=== PATIENT | male | born 1950 | race Caucasian/White ===

== ENCOUNTER 2019-05-26 10:43 | Outpatient (CLI) | payer MEDICARE, OTHER, SELFPAY ==
--- NOTE | 2019-05-27 13:39 | ONC CON_ITS ---
Dr. Sanches New Patient Note Patient: Nick Sheldon Unit #: [id number]: 1950 Dicatated By: Olu Sanches M.D.Date of Visit: May 26, 2019 Onc MED New Patient/Consult Referring Physician: Dr. Ede Prado M.D. Chief Complaint: Monoclonal gammopathy. History of Present Illness: This is a 68-year-old man with an IgA monoclonal gammopathy and suspected myeloma. He has been in excellent general health. He has had no ongoing medical illnesses. He had been seen by Dr. Prado in April to establish primary care. His initial evaluation included a comprehensive metabolic profile on 04/13/2019 which showed elevated BUN and creatinine at 19 and 1.43 mg/dL and elevation of the calculated serum globulin at 4.4 g/dL. His further laboratory studies from 04/24/2019 included CBC showing hemoglobin 11.2 g with hematocrit 34%. The red cell indices were normal. The white blood cell count was 5200 and the platelet count was 185,000. His basic metabolic profile showed borderline renal function with BUN 19 and creatinine 1.46 mg/dL. Calcium was normal at 9.7 mg/dL. Protein electrophoresis showed an IgA lambda monoclonal protein which quantitated at 2.6 g/dL. A second M band measured 0.2 g/dL. The total protein was 8.0 g/dL and the albumin measured 3.8 g/dL. The quantitative immunoglobulin levels included IgA 3025 mg/dL, IgG 299 mg/dL, and IgM 14 mg/dL. The free light chain assay showed elevated lambda light chain at 39.1 mg/L with normal kappa light chain at 5.1 mg/L and decreased kappa/lambda ratio at 0.13. He says that he feels great. He has good energy and he has normal activity. ECOG score is 0. Appetite also has been good. His weight has been stable. He has no fever or night sweats. He has no shortness of breath, cough, or chest pain. He has no GI or complaints. He has occasional low back pain, mainly following more strenuous activities. He has no other joint or bone pain. He has no focal neurologic symptoms. Past Medical History: He has had ongoing medical illnesses. Past Surgical History: His only procedure was a colonoscopy in 2008. Medications: He is currently not on any prescription medication. Allergies: No Known Allergies. Social History: Mr. Sheldon is . 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 He is a non-smoker. He does not drink alcohol. Family History: Father of prostate cancer at age 79. Mother is still living at age 94 and is in reasonably good health. A sister with complications of mental retardation. Two brothers are still living. One has valvular heart disease. Review Of Symptoms: Constitutional - He feels good and has good energy. He has normal activity. His appetite is good and his weight is stable. No fever, chills, hot flashes, or night sweats. ECOG score is 0, Eyes - No change in vision, ENMT - No hearing loss or tinnitus. No sinus congestion/drainage. No mouth sores. No sore throat or difficulty swallowing, Hematologic/Lymphatic - No abnormal bruising or bleeding, Respiratory - No shortness of breath. No cough. No pleuritic pain or hemoptysis, Cardiovascular - No angina pain. No palpitations, Gastrointestinal - No nausea or vomiting. No heartburn or acid reflux. No diarrhea or constipation. No blood in the stool or black stools, Genitourinary (M) - No dysuria or hematuria. No urinary frequency. No urgency or incontinence, Musculoskeletal - His back is sore after working all day, but nothing out of the ordinary. He has no other joint or bone pain, Integumentary - No skin complications, Neurologic - No headache or dizziness. No numbness/paresthesias or other focal neurologic symptoms, Psychiatric - No anxiety or depression. No insomnia. Vital Signs: Performed on May 26, 2019 11:41: 0, 24.50, 2.13 sq.m, 74.00 in, 99 %, 66 /min, 18 /min, 153/79 mm(hg) (HIGH), 97.7 F (LOW), and 190.8 lbs (HIGH). Physical Examination: Constitutional - He appears to be in good general health, Eyes - Sclerae nonicteric. Conjunctivae clear, ENMT - No lesions noted in the oral cavity, Neck - No mass or thyromegaly, Hematologic/Lymphatic - No cervical, clavicular, or axillary adenopathy, Respiratory - Lungs are clear with good air movement bilaterally, Cardiovascular - Heart rhythm is regular. There is no murmur, gallop, or rub noted, Abdomen - Soft and non-tender. Liver and spleen are not enlarged. There is no abdominal mass or ascites noted and there is no inguinal adenopathy, Back/Spine - No spine or CVA tenderness noted, Extremities - No edema. Pedal pulses are palpable bilaterally, Integumentary - No rashes. No suspicious skin lesions noted, Neurologic - No focal neurologic deficits noted. Impression: 1. Patient with IgA lambda monoclonal gammopathy. He also has mild anemia and mild renal impairment. Taken together, the findings are consistent with stage I myeloma. 2. He is not overtly symptomatic with it. Plan: The laboratory findings were reviewed with the patient and his . We discussed the clinical implications. Given the mild anemia and the renal impairment in association with IgA monoclonal gammopathy, the probability is very high that he has myeloma. We discussed the fact that this is a treatable though not curable malignancy. He will need to complete his initial evaluation with a skeletal survey, a 24-hour urine study for monoclonal protein excretion, and bone marrow aspiration/biopsy. A staging PET/CT may also be recommended, depending on the results of the other studies. We discussed initial treatment in general terms, which most commonly consists of an induction regimen with lenalidomide in combination with either bortezomib or carfilzomib and with dexamethasone. At some point along the process, I also will want him to be seen at [facility], as he will potentially be a candidate for stem cell transplant. All of their questions were addressed. Signed By: Olu Sanches M.D. <<Signature on File>>
== END 2019-05-26 10:44 | disposition home or self-care (01) ==
PROVIDERS: Family Provider Internal Medicine; PCP Family Medicine; Referring Provider Family Medicine; Visit Provider Internal Medicine Medical Oncology
DX: D47.2 Monoclonal gammopathy (principal); D64.9 Anemia, unspecified
CPT/HCPCS: 99205

== ENCOUNTER 2019-05-27 09:25 | Outpatient (CLI) | payer MEDICARE, OTHER, SELFPAY ==
--- NOTE | 2019-05-27 09:38 | XRR_ITS ---
PROCEDURE INFORMATION: Exam: XR Osseous survey; Complete axial and appendicular skeleton Exam date and time: 05/27/2019 10:13 AM Age: 69 years old Clinical indication: Condition or disease; Condition/disease: Monoclonal gammopathy TECHNIQUE: Imaging protocol: Radiological examination. Complete osseous survey. Axial and appendicular skeleton. COMPARISON: No relevant prior studies available. FINDINGS: Skull: No lytic or punched-out defect. Cervical spine: Mild degenerative disc disease.No lytic or punched-out defect. Chest: Normal. Visualized ribs and visualized portions of the shoulders unremarkable. Thoracic spine: Mild degenerative changes. No lytic or punched-out defect. No fracture. Lumbar Spine: Moderate degenerative changes most pronounced L4-L5 and L5-S1. No lytic or punched-out defect. Pelvis:osseous structures of the pelvis are without an acute process. No lytic or punched-out defect. Femurs:No lytic or punched-out defect. Humerus:No lytic or punched-out defect. Elbows:No lytic or punched-out defect. XR/XR bone survey* [id number] IMPRESSION: No lytic process. No punched-out lesions.
== END 2019-05-27 09:26 | disposition home or self-care (01) ==
PROVIDERS: Family Provider Internal Medicine; PCP Family Medicine; Visit Provider Internal Medicine Medical Oncology
DX: D47.2 Monoclonal gammopathy (principal)
CPT/HCPCS: 77075

== ENCOUNTER 2019-06-25 14:15 | Outpatient (CLI) | payer MEDICARE, OTHER, SELFPAY ==
--- NOTE | 2019-06-25 | MR_ITS ---
WS: [id number] MRI LUMBAR SPINE WITH AND WITHOUT CONTRAST HISTORY: MYELOMA COMPARISON: None available. TECHNIQUE: Sagittal and axial multisequence imaging is submitted. Postcontrast sequences also perform ed. Normal lumbar alignment. There is mild heterogeneity throughout the lumbar vertebral bodies. Mild christina t and pepper pattern which can be seen with multiple myeloma. Hypointense lesion along the superior e ndplate of L2 does enhance. This could very well represent a myelomatous lesion. Differential include s acute Schmorl's node defect. There is additional very mild enhancement involving the sacrum. Mild disc desiccation throughout. Conus terminates normally at L1-2 disc level. L1-L2: Normal. L2-L3: Mild annular disc bulging and facet arthritis. L3-L4: Mild diffuse disc bulging and mild bilateral foraminal narrowing. L4-L5: Mild central and foraminal narrowing. L5-S1: Mild diffuse disc bulging. Mild encroachment upon the S1 nerve roots without significant steno sis. LEFT renal cyst. MR/MR lumbar spine wo/w con [id number] IMPRESSION: 1. No compression fractures. 2. Heterogeneous pattern throughout the lumbar vertebral bodies with an enhanc ing lesion along the superior endplate of L2. Suspicious for myeloma. There is additional very subtle enhancement along the anterior sacral vertebral bodies w hich can be seen with multiple myeloma.
--- NOTE | 2019-06-25 | MR_ITS ---
WS: [id number] MRI CERVICAL SPINE with and without contrast. HISTORY: MYELOMA COMPARISON: None available. Multiplanar, multisequence imaging of the cervical spine is performed with and without contrast. Normal cervical alignment. Mild disc desiccation throughout. Mild heterogeneity within the vertebral bodies. No destructive bone process. There is a small amount of increased T2 signal in the LEFT C6 ar ticular facet with enhancement. Signal within the cervical cord is normal. Visualized posterior fossa is unremarkable. Craniocervical junction, C1 and C2 relationship, odontoid process and soft tissues are normal. C2-C3: Normal. C3-C4: Mild disc bulging and osteophytosis and central disc protrusion. C4-C5: Mild osteophytic ridging with no stenosis. C5-C6: Mild osteophytic ridging with mild bilateral foraminal stenosis and facet hypertrophy. C6-C7: Mild osteophytic ridging with facet arthropathy. Mild RIGHT foraminal stenosis. C7-T1: Mild osteophytic ridging with mild bilateral foraminal narrowing. Paraspinal soft tissue are normal. Bilateral maxillary sinusitis. MR/MR cervical spine wo/w [id number] IMPRESSION: 1. No evidence for metastatic disease or abnormal enhancement. 2. Increased T2 marrow signal with mild enhancement involving the C6 LEFT sup erior articular facet is probably related to synovitis. 3. No significant central or foraminal stenosis. 4. Maxillary sinus disease.
--- NOTE | 2019-06-25 | MR_ITS ---
WS: [id number] MRI THORACIC SPINE with and without contrast HISTORY: MYELOMA COMPARISON: None available. TECHNIQUE: Multiplanar sequences are performed in sagittal and axial planes. Very mild heterogeneity scattered throughout the vertebral bodies. No destructive process or fracture . No compression upon the cord or marrow edema. No enhancement within the vertebral bodies. Central shallow disc protrusion at T3-4. Otherwise mild facet arthropathy throughout the thoracic spi ne. MR/MR thoracic spine wo/w [id number] IMPRESSION: 1. No compression fractures. 2. Very mild heterogeneity throughout the vertebral bodies. Although there is no destructive process multiple myeloma can sometimes be seen with a very mild change in the osseous pattern without enhancement. Cannot confirm multiple myel fili on this MRI.
== END 2019-06-25 14:16 | disposition home or self-care (01) ==
LOC: RADSHAW 14:20
PROVIDERS: Family Provider Internal Medicine; PCP Family Medicine; Visit Provider Internal Medicine Medical Oncology
DX: C90.00 Multiple myeloma not having achieved remission (principal); J32.0 Chronic maxillary sinusitis
CPT/HCPCS: 72156; 72157; 72158; A9579

== ENCOUNTER 2019-07-01 13:10 | Outpatient (CLI) | payer MEDICARE, OTHER, SELFPAY ==
[2019-07-02 15:46] LABS: CREATININE, 24 HOUR URINE 1.85 g/24 h (0.50-2.15); PROTEIN, TOTAL, 24 HR UR 126 mg/24 h (<150); Protein/Creatinine Ratio 0.068 (< OR = 0.114); Protein/Creatinine Ratio 68 mg/g creat (< OR = 114)
[2019-07-03 09:06] LABS: ALPHA-1-GLOBULINS 0 %; ALPHA-2-GLOBULINS 0 %; BETA GLOBULINS 0 %; GAMMA GLOBULINS 0 %
[2019-08-28 11:24] LABS: COLLECTION DURATION 24; URINE VOLUME 900
== END 2019-07-01 13:11 | disposition home or self-care (01) ==
LOC: ONCMED 13:12
PROVIDERS: Family Provider Internal Medicine; PCP Family Medicine; Visit Provider Internal Medicine Medical Oncology
DX: C90.00 Multiple myeloma not having achieved remission (principal)
CPT/HCPCS: 82040

== ENCOUNTER 2019-07-16 08:16 | Outpatient (CLI) | payer MEDICARE, OTHER, SELFPAY ==
--- NOTE | 2019-07-16 08:29 | USCV_ITS ---
Nick Sheldon Age: 69 Gender: M : 1950 Exam Date: 07/16/2019 08:39 Ordering Phys: Olu Sanches MD Technologist: Bruce Jaimes [place] [facility] [place] HIGH RISK MED BP: 125 / 72 HR: 66 Rhythm: Sinus Technical Quality: Good MEASUREMENTS (Male / Female) Normal Values 2D ECHO LV Diastolic Diameter PLAX 3.9 cm 4.2 - 5.9 / 3.9 - 5.3 cm LV Systolic Diameter PLAX 2.6 cm IVS Diastolic Thickness 0.9 cm 0.6 - 1.0 / 0.6 - 0.9 cm IVS Systolic Thickness 1.1 cm LVPW Diastolic Thickness 1.2 cm 0.6 - 1.0 / 0.6 - 0.9 cm LVPW Systolic Thickness 1.2 cm LVOT Diameter 2.1 cm LV Ejection Fraction 2D Teich 62.4 % LV Ejection Fraction MOD 2C 61.4 % LV Ejection Fraction 2C AL 60.5 % LA Diameter 3.7 cm LA Width 3.5 cm LA Height 4.4 cm RA Width 3.9 cm RA Height 4.2 cm Aorta at Sinotubular Diameter 2.8 cm M-MODE LV Diastolic Diameter MM 5.7 cm 4.2 - 5.9 / 3.9 - 5.3 cm LV Systolic Diameter MM 4.3 cm LV Ejection Fraction MM Teich 50.1 % IVS Diastolic Thickness MM 1.0 cm 0.6 - 1.0 / 0.6 - 0.9 cm IVS Systolic Thickness MM 1.5 cm LVPW Diastolic Thickness MM 1.2 cm 0.6 - 1.0 / 0.6 - 0.9 cm LVPW Systolic Thickness MM 1.8 cm RV Diastolic Diameter MM 1.4 cm Aortic Annulus Diameter 3.4 cm LA Ao Ratio MM 1.1 MV E Point Septal Separation 1.6 cm DOPPLER AV Peak Velocity 119.0 cm/s LVOT Peak Velocity 98.0 cm/s AV Area Cont Eq vti 2.7 cm squared AV Area Cont Eq pk 2.9 cm squared MV Area PHT 5.0 cm squared Mitral E to A Ratio 0.9 MV E' Velocity 11.0 cm/s Mitral E to MV E' Ratio 8.1 Mitral E to LV E' Lateral Ratio 7.6 Mitral E to LV E' Septal Ratio 8.6 TR Peak Velocity 213.0 cm/s TR Peak Gradient 18.1 mmHg Right Atrial Pressure 3.0 mmHg Pulmonary Artery Systolic Pressu 21.1 mmHg PV Peak Velocity 129.0 cm/s FINDINGS Left Ventricle Normal left ventricular cavity size. Mildly reduced left ventricular systolic function. Global left ventricular hypokinesis. Left ventricular ejection fraction is estimated at 50 %. Grade I/IV diastolic dysfunction (abnormal relaxation filling pattern), normal to mildly elevated filling pressures. Right Ventricle The right ventricle is normal in size and function. Right Atrium The right atrium is normal in size. Left Atrium The left atrium is normal in size. Mitral Valve Structurally normal mitral valve without significant stenosis or prolapse. There is no mitral regurgitation. Aortic Valve Structurally normal aortic valve without significant sclerosis or stenosis. There is no aortic regurgitation. Tricuspid Valve Mild tricuspid valve regurgitation. Pulmonic Valve Structurally normal pulmonic valve without significant stenosis. There is no pulmonic regurgitation. Pericardium Normal pericardium without effusion. Aorta Normal ascending aorta dimension. CONCLUSIONS 1-Normal left ventricular cavity size. Mildly reduced left ventricular systolic function. Global left ventricular hypokinesis. Left ventricular ejection fraction is estimated at 50 %. Grade I/IV diastolic dysfunction (abnormal relaxation filling pattern), normal to mildly elevated filling pressures. 2-No significant valve abnormalities. 3-There is no pericardial effusion. 4-Right atrial pressure is around 5 mm of mercury. 5-There are no prior echocardiogram studies to compare. Sharmila Zhou MD (Electronically Signed) Final Date: 16 July 2019 15:31 S
== END 2019-07-16 08:17 | disposition home or self-care (01) ==
LOC: RAD 08:21
PROVIDERS: Family Provider Internal Medicine; PCP Family Medicine; Visit Provider Internal Medicine Medical Oncology
DX: C90.00 Multiple myeloma not having achieved remission (principal)
CPT/HCPCS: 93306

== ENCOUNTER 2019-08-20 06:50 | Outpatient (RCR) | payer MEDICARE, OTHER, SELFPAY ==
[2019-08-05 08:57] LABS: Basophils # 0.1 10^3/uL (0.0-0.1); Basophils % 1.2 %; Eosinophils # 0.3 10^3/uL (0.0-0.8); Eosinophils % 5.7 %; Hematocrit 32.7 % (42.0-52.0); Hemoglobin 10.3 g/dL (11.7-16.6); Lymphocytes # 2.1 10^3/uL (0.8-4.8); Lymphocytes % 43.3 %; Mean Corpuscular HGB Conc 31.5 g/dL (30.0-36.0); Mean Corpuscular Hemoglobin 28.6 pg (28.0-34.0); Mean Corpuscular Volume 90.8 fL (80-94); Mean Platelet Volume 11.1 fL (7.4-10.4); Monocytes # 0.6 10^3/uL (0.2-0.9); Monocytes % 12.1 %; Neutrophils # 1.8 10^3/uL (1.8-7.7); Neutrophils % 36.9 %; Nucleated Red Blood Cells % 0 %; Platelet Count 156 10^3/cmm (130-400); White Blood Count 4.9 10^3/uL (4.0-10.0)
[2019-08-05 09:25] LABS: Alanine Aminotransferase 15 U/L (0-41); Albumin Level 3.9 g/dL (3.5-5.2); Alkaline Phosphatase 72 IU/L (40-130); Anion Gap 18.9 (5-19); Aspartate Amino Transferase 23 U/L (0-40); Blood Urea Nitrogen 19 mg/dL (8-23); Calcium 9.5 mg/dL (8.5-10.5); Carbon Dioxide 23 mmol/L (22-29); Chloride 98 mmol/L (98-107); Globulin 4.8 g/dL (1.3-4.6); Glomerular Filtration Rate 46.3 mL/min (90-130); Glucose 140 mg/dL (65-115); Osmolality Calculated 281 mOsm/kg (285-295); Potassium 3.9 mmol/L (3.5-5.1); Sodium 136 mmol/L (136-145); Total Bilirubin 0.4 mg/dL (0.15-1.2); Total Protein 8.7 g/dL (6.6-8.7)
[2019-08-05] MEDS: dexamethasone 20 MG in sodium chloride 0.9% 50 ML 188 MG IV (10:31)
[2019-08-05] MEDS: sodium chloride 0.9% 500 ML 999 ML IV (11:03)
[2019-08-06] MEDS: dexamethasone 20 MG in sodium chloride 0.9% 50 ML 188 MG IV (09:02)
[2019-08-06] MEDS: sodium chloride 0.9% 500 ML 999 ML IV (09:34)
[2019-08-12 09:13] LABS: Eosinophils # 0.2 10^3/uL (0.0-0.8); Hemoglobin 10.4 g/dL (11.7-16.6); Lymphocytes # 1.1 10^3/uL (0.8-4.8); Lymphocytes % 35.5 %; Mean Corpuscular HGB Conc 32.5 g/dL (30.0-36.0); Mean Corpuscular Hemoglobin 29.7 pg (28.0-34.0); Mean Corpuscular Volume 91.4 fL (80-94); Mean Platelet Volume 12.6 fL (7.4-10.4); Monocytes # 0.4 10^3/uL (0.2-0.9); Monocytes % 12.9 %; Neutrophils # 1.4 10^3/uL (1.8-7.7); Neutrophils % 45.3 %; Nucleated Red Blood Cells % 0 %; Platelet Count 132 10^3/cmm (130-400); Red Cell Distribution Width 18.7 % (12.1-15.1); White Blood Count 3.2 10^3/uL (4.0-10.0)
[2019-08-12] MEDS: sodium chloride 0.9% 500 ML 999 ML IV (11:45)
[2019-08-12] MEDS: dexamethasone 20 MG in sodium chloride 0.9% 50 ML 188 MG IV (12:00)
--- NOTE | 2019-08-12 13:32 | ONC FU_ITS ---
[facility] Patient Note Patient: Nick Sheldon Unit #: [id number]: 1950 Dictated By: Michael LaguerreDate of Visit: August 12, 2019 Onc MED Follow-Up/Prog Note Chief Complaint: Monoclonal gammopathy. History of Present Illness: Mr Sheldon is a 69-year-old man with an IgA monoclonal gammopathy and suspected myeloma. He has been in excellent general health. 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 He has had no ongoing medical illnesses. He had been seen by Dr. Prado in April to establish primary care. His initial evaluation included a comprehensive metabolic profile on 04/13/2019 which showed elevated BUN and creatinine at 19 and 1.43 mg/dL and elevation of the calculated serum globulin at 4.4 g/dL. His further laboratory studies from 04/24/2019 included CBC showing hemoglobin 11.2 g with hematocrit 34%. The red cell indices were normal. The white blood cell count was 5200 and the platelet count was 185,000. His basic metabolic profile showed borderline renal function with BUN 19 and creatinine 1.46 mg/dL. Calcium was normal at 9.7 mg/dL. Protein electrophoresis showed an IgA lambda monoclonal protein which quantitated at 2.6 g/dL. A second M band measured 0.2 g/dL. The total protein was 8.0 g/dL and the albumin measured 3.8 g/dL. The quantitative immunoglobulin levels included IgA 3025 mg/dL, IgG 299 mg/dL, and IgM 14 mg/dL. The free light chain assay showed elevated lambda light chain at 39.1 mg/L with normal kappa light chain at 5.1 mg/L and decreased kappa/lambda ratio at 0.13. Skeletal survey was negative. Mr. Sheldon was seen by Dr. Sanches in May 2019. He was doing well at that time. He was referred to [facility]???Dr. Britton. He was seen by Dr. Britton on 06/05/2019. He continued to be asymptomatic. He underwent complete work-up including PET CT, bone marrow aspiration and biopsy. It was found on the bone marrow that he had lambda restricted plasma cell neoplasm involving 60% of the marrow cellularity. The plasma cells were positive for CD56 and negative for CD20, p53 and cyclin D1. Stains for CD3 and CD20 highlight scattered T and B lymphocytes effectively and show no morphologic evidence of lymphoma. The pancytokeratin is negative for metastatic carcinoma. Mr. Sheldon underwent PET CT imaging on 06/13/2019 with [facility] radiology. There was no evidence of active malignancy and no punched out FDG positive lytic osseous lesions typical for multiple myeloma. There were no incidental findings. With these findings, it was recommended that Mr. Sheldon proceed with therapy locally. He was advised to start carfilzomib, Revlimid and dexamethasone. He began his first cycle on August 05, 2019. Mr. Sheldon is here today for follow-up. He is due for cycle 1 day 8 and 9 carfilzomib. He continues on the Revlimid 15 mg daily. He states he is doing well overall. 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 He denies any nausea or vomiting. He denies any diarrhea or constipation. He has no neuropathy symptoms. He has had no fever or chills. He denies mouth sores, sore throat or difficulty swallowing. He denies any pain. He said no lower extremity edema. He denies any new shortness of breath orthopnea. He states he has a little windedness when he walks up a hill but that is not entirely new and is no worse than what it has been. He denies any wheezing. He states he has developed a rash and hives from his chest up. This developed about 3 to 4 days ago. He is taking prophylactic acyclovir but is been on it for at least 2 weeks. He is not on prophylactic Bactrim. He states the rash is a little itchy but not dramatic. He has no further evidence of rash other than the chest and neck and head. He did take his Revlimid this morning approximately 3 hours prior to his office visit. He says so far the rash is not worsened today. His ECOG is 0. Past Medical History: He has had ongoing medical illnesses. Past Surgical History: Colonoscopy in 2008 Allergies: No Known Allergies. Medications: Acyclovir 1 Tablet (of 400 mg) Oral daily Aspirin 1 Tablet (of 325 mg) Oral daily Revlimid 1 Capsule (of 15 mg) Oral daily for 21 days Family History: Mr. Sheldon's mother is alive. Mr. Sheldon's father at age 79: prostate cancer. Mr. Sheldon has 2 brothers: 2 alive. He has 1 sister who is . Father of prostate cancer at age 79. Mother is still living at age 94 and is in reasonably good health. A sister with complications of mental retardation. Two brothers are still living. One has valvular heart disease. Social History: Mr. Sheldon is and he is retired. Mr. Sheldon has never smoked. He has no history of drinking. Mr. Sheldon reports the following support systems: lives with spouse, significant other, family, or friends, lives in own house, supportive family/friends willing to assist with needs, and adequate transportation available for expected visits. His diet consists of regular meals. He indicates his activity level as: regular exercise. 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 He is a non-smoker. He does not drink alcohol. Review Of Symptoms: Constitutional Denies fevers, chills, night sweats, excessive fatigue or weight loss. Allergic/Immunologic No reactions. Rash on chest, neck and head-new onset within last 3-4 days. See below Eyes Denies significant visual changes. No diplopia. No amaurosis. ENMT Denies changes in hearing, sore throat, mouth sores, difficulty or changes in swallowing ability, and/or sinus drainage. Hematologic/Lymphatic Denies easy bruising or bleeding. The patient denies any tender or palpable lymph nodes. Respiratory Denies dyspnea on exertion, chest pain, cough or hemoptysis. Denies orthopnea. Cardiovascular Denies anginal chest pain, palpitations or orthopnea. Gastrointestinal Denies nausea, vomiting, diarrhea, GI bleeding, or constipation. Denies change in bowel habits and/or stool color, no heartburn or early satiety. Genitourinary (M) Denies hematuria, dysuria, increased frequency, urgency, hesitancy or incontinence. Musculoskeletal Denies joint pain, swelling or redness. No decreased range of motion. Integumentary Denies chronic rashes, inflammation, ulcerations or skin changes. New onset of rash/hives on chest, neck and head about 3-4 days ago. Mild itching but no exudate or signs of infection. Neurologic Denies headache, blurred vision, and no areas of focal weakness or numbness. Normal gait. No sensory problems. Psychiatric Denies insomnia, depression, daniela or mood swings. Vital Signs: Performed on August 12, 2019 10:43 Height - 74.00 in Weight - 189 lbs (LOW) BSA - 2.12 sq.m BMI - 24.27 Temperature - 98.0 F (LOW) Pulse - 72 /min Respiration - 19 /min BP - 154/94 mm(hg) (HIGH) O2 Sat - 98 % Pain - 0,0 - Fully active, able to carry on all predisease activities without restrictions. (ECOG) Physical Examination: Constitutional Alert, oriented, no acute distress. Skin pink, warm and dry. Head Normocephalic; atraumatic. Eyes Conjunctivae and sclerae are clear and without icterus. Pupils are reactive and equal. ENMT No oral exudates, ulcers, masses, thrush or mucositis. Oropharynx clear. Tongue normal. Neck Supple without masses or thyromegaly. No jugular venous distension. Hematologic/Lymphatic No petechiae or purpura. Respiratory Lungs are clear to auscultation without rhonchi or wheezing. Cardiovascular Regular rate and rhythm of heart without murmurs,clicks, gallops or rubs. Abdomen Non-tender, non-distended, no masses or ascites. Good bowel sounds noted in all quads. No guarding or rebound tenderness. No pulsatile masses. Back/Spine Non-tender to palpation. Extremities No visible deformities, no cyanosis, clubbing or edema. Musculoskeletal No tenderness or swelling, normal range of motion without obvious weakness. Integumentary Scattered red raised lesions on upper chest, neck and head including scalp. No vesicles presently. No exudate. Neurologic No sensory or motor deficits, normal cerebellar function, normal gait. Psychiatric Alert and oriented times three. Coherent speech. Verbalizes understanding of our discussions today. Laboratory:Test performed on August 12, 2019 08:32 WBC 3.2 10 3/uL RBC 3.50 10 6/uL HGB 10.4 g/dL HCT 32.0 % MCV 91.4 fL MCH 29.7 pg MCHC 32.5 g/dL RDW 18.7 % Platelet Count 132 10 3/cmm MPV 12.6 fL Neutrophils 1.4 10 3/uL Lymphocytes 1.1 10 3/uL Monocytes 0.4 10 3/uL Eosinophils 0.2 10 3/uL Basophils 0.0 10 3/uL Neutrophil % 45.3 % Lymphocyte % 35.5 % Monocyte % 12.9 % Eosinophil % 6.0 % Basophils % 0.0 % Test performed on August 05, 2019 08:45 Sodium 136 mmol/L Potassium 3.9 mmol/L Chloride 98 mmol/L CO2 23 mmol/L Anion Gap 18.9 BUN 19 mg/dL Creatinine 1.5 mg/dL Cr Clearance (Est) 56.1000 mL/min eGFR 46.3 mL/min Glucose 140 mg/dL Calcium 9.5 mg/dL Protein, Total 8.7 g/dL Albumin 3.9 g/dL Globulin 4.8 g/dL Bilirubin, Total 0.4 mg/dL ALT (SGPT) 15 U/L AST (SGOT) 23 U/L Alkaline Phosphatase 72 IU/L Test performed on Apr 13, 2019 08:36 Cholesterol, Total 199 mg/dL HDL Cholesterol 43 mg/dL LDL Cholesterol 131 mg/dL BUN/Creatinine Ratio 13 Absolute Value Triglycerides 137 mg/dL A/G Ratio 0.9 Absolute Value Impression: 1. Patient with IgA lambda monoclonal gammopathy. He also has mild anemia and mild renal impairment. Taken together, the findings are consistent with stage I myeloma. 2. He is not overtly symptomatic with it. It was found on the bone marrow that he had lambda restricted plasma cell neoplasm involving 60% of the marrow cellularity. The plasma cells were positive for CD56 and negative for CD20, p53 and cyclin D1. Stains for CD3 and CD20 highlight scattered T and B lymphocytes effectively and show no morphologic evidence of lymphoma. The pancytokeratin is negative for metastatic carcinoma. Mr. Sheldon underwent PET CT imaging on 06/13/2019 with [facility]. There was no evidence of active malignancy and no punched out FDG positive lytic osseous lesions typical for multiple myeloma. There were no incidental findings. With these findings, it was recommended that Mr. Sheldon proceed with therapy locally. He was advised to start carfilzomib, Revlimid and dexamethasone. He began his first cycle on August 05, 2019. Plan: 1. Proceed with Kyprolis day 8 & 9-will need to watch for flare of rash. 2. Hold Revlimid until Saturday08-17-2019 at which time he is to call and give us report on the rash. If the rashes worsens after the Kyprolis infusion today or tomorrow-the Kyprolis will be put on hold. If we hold the Kyprolis, we can try resuming the Revliid 15 mg daily. 3. Continue acyclovir daily for now. We will not start him on prophylactic Bactrim at this time until we determine the etiology of the rash and it resolves. 4. Labs from today were reviewed in detail and discussed with Mr. Sheldon and a copy was given to him. WBC 3.2, hemoglobin 10.4, platelets 132,000, and ANC is 1400. 5. We will plan to see him back in 1 week for day 15 and 16 carfilzomib at which time he is been asked to have a CBC, CMP. He has not yet had repeat proteins since his initial staging. We will plan to obtain those prior to cycle 2 treatment. 6. Mr. Sheldon is advised that he could try Benadryl, Claritin or Zyrtec [id number] should he develop any itching from the rash. 7. Mr. Sheldon has been instructed to contact us in the interim should questions or problems arise. I have again asked him to call in on Saturday, August 16 with report of the rash as we can determine whether to resume the Revlimid as a rechallenge. He was instructed to call us if any other questions or problems arise. Signed By: Michael Laguerre-, AOCNP Olu Sanches MD <<Signature on File>>
[2019-08-13] MEDS: sodium chloride 0.9% 500 ML 999 ML IV (08:33)
[2019-08-13] MEDS: dexamethasone 20 MG in sodium chloride 0.9% 50 ML 188 MG IV (09:23)
[2019-08-19 10:03] LABS: Basophils % 0.2 %; Eosinophils # 0.1 10^3/uL (0.0-0.8); Eosinophils % 2.4 %; Hematocrit 32.6 % (42.0-52.0); Hemoglobin 10.6 g/dL (11.7-16.6); Lymphocytes # 1.2 10^3/uL (0.8-4.8); Lymphocytes % 20.5 %; Mean Corpuscular HGB Conc 32.5 g/dL (30.0-36.0); Mean Corpuscular Hemoglobin 29.9 pg (28.0-34.0); Mean Corpuscular Volume 91.8 fL (80-94); Mean Platelet Volume 10.9 fL (7.4-10.4); Monocytes % 17.9 %; Neutrophils # 3.4 10^3/uL (1.8-7.7); Neutrophils % 58.7 %; Nucleated Red Blood Cells % 0 %; Platelet Count 179 10^3/cmm (130-400); Red Blood Count 3.55 10^6/uL (4.1-5.3); Red Cell Distribution Width 19.3 % (12.1-15.1); White Blood Count 5.8 10^3/uL (4.0-10.0)
[2019-08-19 10:31] LABS: Alanine Aminotransferase 14 U/L (0-41); Albumin Level 3.8 g/dL (3.5-5.2); Alkaline Phosphatase 100 IU/L (40-130); Anion Gap 15.8 (5-19); Aspartate Amino Transferase 15 U/L (0-40); Blood Urea Nitrogen 23 mg/dL (8-23); Calcium 9.3 mg/dL (8.5-10.5); Carbon Dioxide 22 mmol/L (22-29); Chloride 102 mmol/L (98-107); Glomerular Filtration Rate 50.1 mL/min (90-130); Glucose 109 mg/dL (65-115); Osmolality Calculated 279 mOsm/kg (285-295); Potassium 3.8 mmol/L (3.5-5.1); Sodium 136 mmol/L (136-145); Total Bilirubin 0.4 mg/dL (0.15-1.2); Total Protein 6.8 g/dL (6.6-8.7)
[2019-08-19] MEDS: dexamethasone 20 MG in sodium chloride 0.9% 50 ML 188 MG IV (17:52)
[2019-08-19] MEDS: sodium chloride 0.9% 500 ML 999 ML IV (17:53)
[2019-08-20] MEDS: sodium chloride 0.9% 500 ML 999 ML IV (09:15)
[2019-08-20] MEDS: dexamethasone 20 MG in sodium chloride 0.9% 50 ML 300 MG IV (09:35)
--- NOTE | 2019-08-23 09:21 | ONC FU_ITS ---
Dr. Sanches Patient Follow-Up Note Patient: Nick Sheldon Unit #: [id number]: 1950 Dicatated By: Olu Sanches M.D.Date of Visit:August 19, 2019 Onc Med Follow-up/Prog Note Chief Complaint: Myeloma. History of Present Illness: This is a 69 year-old man with IgA lambda myeloma. He had been seen by Dr. Prado in April 2019 to establish primary care. His initial evaluation included a comprehensive metabolic profile on 04/13/2019 which showed elevated BUN and creatinine at 19 and 1.43 mg/dL and elevation of the calculated serum globulin at 4.4 g/dL. His further laboratory studies from 04/24/2019 included CBC showing hemoglobin 11.2 g with hematocrit 34%. The red cell indices were normal. The white blood cell count was 5200 and the platelet count was 185,000. His basic metabolic profile showed borderline renal function with BUN 19 and creatinine 1.46 mg/dL. Calcium was normal at 9.7 mg/dL. Protein electrophoresis showed an IgA lambda monoclonal protein which quantitated at 2.6 g/dL. A second M band measured 0.2 g/dL. The total protein was 8.0 g/dL and the albumin measured 3.8 g/dL. The quantitative immunoglobulin levels included IgA 3025 mg/dL, IgG 299 mg/dL, and IgM 14 mg/dL. The free light chain assay showed elevated lambda light chain at 39.1 mg/L with normal kappa light chain at 5.1 mg/L and decreased kappa/lambda ratio at 0.13. I had seen him initially on 05/26/2019. His further evaluation included a 24-hour urine protein electrophoresis which showed no monoclonal protein and a skeletal survey which showed no evidence for lytic bone lesions. He was then referred to [facility]. His bone marrow aspiration/biopsy His bone marrow aspiration/biopsy on 06/05/2019 showed increased lambda restricted plasma cells estimated at 60% of the overall cellularity, consistent with plasma cell neoplasm. Staging PET/CT on 06/13/2019 showed no evidence for active malignancy. He had further evaluation with MRI of the spine on 06/25/2019. The cervical spine showed some degenerative changes but no evidence for metastatic disease. There was mild heterogeneity throughout the vertebral bodies of the thoracic spine. There was no evidence for a destructive process, but involvement with myeloma was not excluded. There was also mild heterogeneity throughout the lumbar spine. Also noted was a mild [id number] pattern and there was a hypointense lesion noted along the superior endplate of the L2 vertebral body. That lesion did show enhancement and there was additional very mild enhancement involving the sacrum. Overall, the findings were suspicious for involvement with myeloma. With those findings, along with the anemia and renal impairment, he was recommended to begin treatment with carfilzomib/Revlimid/dexamethasone. He has otherwise been in excellent health. He has had no other ongoing medical illnesses. He is a non-smoker. INTERIM HISTORY: He began cycle 1 of carfilzomib/Revlimid/dexamethasone on 08/05/2019. Due to the impaired renal function, the Revlimid was administered at a reduced dosage of 15 mg daily on a 21/28-day schedule. He is seen for a follow-up visit. He is now at day 15 of his first cycle. During the first week of the cycle he developed a skin eruption involving the upper trunk and face/head. The Revlimid was put on hold at day 8, and the skin eruption has since then resolved. He has otherwise been tolerating the treatment well. He has had a slight decline in his energy level, but he is still working. His ECOG score is 0. He has good appetite. He has no fever or night sweats. He has had no mouth sores. He has not been having shortness of breath or cough. He occasionally has had a little tightness in his chest. He has no GI complaints. He does have increased urinary frequency and nocturia since he started his treatment. He has a little bit of pain in the hip area on both sides. He has no other joint or bone pain. He has no focal neurologic symptoms. Medications: Acyclovir 1 Tablet (of 400 mg) Oral daily, Aspirin 1 Tablet (of 325 mg) Oral daily, LORazepam 0.5 - 1 Tablet (of 1 mg) Oral t.i.d. PRN, Prochlorperazine Maleate 1 Tablet (of 10 mg) Oral q 4 hours PRN Allergies: No Known Allergies. Review of Systems: Constitutional - He still feels good. His energy is down slightly. He has normal activity. His appetite is good and his weight is stable. No fever or night sweats. ECOG score is 0, ENMT - No sinus congestion/drainage. No mouth sores. No sore throat or difficulty swallowing, Hematologic/Lymphatic - No abnormal bruising or bleeding, Respiratory - No shortness of breath. No cough. No pleuritic pain or hemoptysis, Cardiovascular - No angina pain, but he occasionally has a little tightness in his chest. No palpitations, Gastrointestinal - No nausea or vomiting. No heartburn or acid reflux. No diarrhea or constipation. No blood in the stool or black stools, Genitourinary (M) - No dysuria or hematuria. He has developed some urinary frequency and nocturia. No urgency or incontinence, Musculoskeletal - He has a little discomfort in his hips. He has no other joint or bone pain, Integumentary - He developed a skin rash in the upper chest and face. It has resolved, Neurologic - No headache or dizziness. No numbness/paresthesias or other focal neurologic symptoms, Psychiatric - No anxiety or depression. No insomnia. Vital Signs: Performed on August 19, 2019 11:02 Height - 74.00 in Weight - 189.4 lbs (HIGH) BSA - 2.12 sq.m BMI - 24.32 Temperature - 97.4 F (LOW) Pulse - 66 /min Respiration - 18 /min BP - 166/78 mm(hg) (HIGH) O2 Sat - 99 % Pain - 0 Physical Examination: Constitutional - He looks good generally, Eyes - Sclerae nonicteric. Conjunctivae clear, ENMT - No lesions noted in the oral cavity, Hematologic/Lymphatic - No cervical, clavicular, or axillary adenopathy, Respiratory - Lungs are clear with good air movement bilaterally, Cardiovascular - Heart rhythm is regular. There is no murmur, gallop, or rub noted, Abdomen - Soft. Liver and spleen are not enlarged. There is no abdominal mass or ascites noted and there is no inguinal adenopathy, Extremities - No edema, Integumentary - There is currently no skin eruption, Neurologic - No focal neurologic deficits noted. Lab/Imaging: Test performed on August 19, 2019 09:30 Sodium 136 mmol/L Potassium 3.8 mmol/L Chloride 102 mmol/L CO2 22 mmol/L Anion Gap 15.8 BUN 23 mg/dL Creatinine 1.4 mg/dL Cr Clearance (Est) 60.1000 mL/min eGFR 50.1 mL/min Glucose 109 mg/dL Calcium 9.3 mg/dL Protein, Total 6.8 g/dL Albumin 3.8 g/dL Globulin 3.0 g/dL Bilirubin, Total 0.4 mg/dL ALT (SGPT) 14 U/L AST (SGOT) 15 U/L Alkaline Phosphatase 100 IU/L WBC 5.8 10 3/uL RBC 3.55 10 6/uL HGB 10.6 g/dL HCT 32.6 % MCV 91.8 fL MCH 29.9 pg MCHC 32.5 g/dL RDW 19.3 % Platelet Count 179 10 3/cmm MPV 10.9 fL Neutrophils 3.4 10 3/uL Lymphocytes 1.2 10 3/uL Monocytes 1.0 10 3/uL Eosinophils 0.1 10 3/uL Basophils 0.0 10 3/uL Neutrophil % 58.7 % Lymphocyte % 20.5 % Monocyte % 17.9 % Eosinophil % 2.4 % Basophils % 0.2 % Impression: 1. Patient with IgA lambda myeloma. He had mild anemia and mild renal impairment at initial diagnosis in May 2019. Bone marrow aspiration/biopsy showed involvement with lambda restricted plasma cells, estimated at 60% of the marrow cellularity, consistent with plasma cell neoplasm. There was no evidence for lytic bone disease on a skeletal survey or PET/CT, but MRI showed subtle changes in the thoracic and lumbar spine which were suspicious for involvement with myeloma. 2. He began treatment with carfilzomib/Revlimid/dexamethasone on 08/05/2019. Due to the impaired renal function, the Revlimid was initiated at a reduced dosage of 15 mg daily on a 21/28-day schedule. He is currently at day 15 of his first cycle of treatment. The Revlimid was put on hold at day 8 due to a skin eruption in the upper trunk and face/head area. It has now resolved. He is otherwise tolerating the treatment very well. Plan: He will continue with his day 15/day 16 carfilzomib infusions. He will now restart the Revlimid at 15 mg daily. I will have him stop that day 21. He is to notify us if there is any recurrence of the skin eruption. He also continues prophylaxis with aspirin and with acyclovir. He will be scheduled for a follow-up visit in 2 weeks. Signed By: Olu Sanches M.D. <<Signature on File>>
== END 2019-08-30 23:59 | disposition home or self-care (01) ==
LOC: ONCMED 06:50
PROVIDERS: Nurse Practitioner; PCP Family Medicine; Visit Provider Internal Medicine Medical Oncology
DX: Z51.11 Encounter for antineoplastic chemotherapy (principal); C90.00 Multiple myeloma not having achieved remission; D47.2 Monoclonal gammopathy
CPT/HCPCS: 80053; 85025; 96361; 96367; 96375; 96413; 99214; J1100; J1200; J2405; J7040; J9047

== ENCOUNTER 2019-09-28 06:49 | Outpatient (RCR) | payer MEDICARE, OTHER, SELFPAY ==
[2019-09-02 10:55] LABS: Basophils # 0.2 10^3/uL (0.0-0.1); Basophils % 3.8 %; Eosinophils # 0.2 10^3/uL (0.0-0.8); Eosinophils % 5.4 %; Hematocrit 33.1 % (42.0-52.0); Hemoglobin 10.5 g/dL (11.7-16.6); Lymphocytes # 1.3 10^3/uL (0.8-4.8); Lymphocytes % 30.8 %; Mean Corpuscular HGB Conc 31.7 g/dL (30.0-36.0); Mean Corpuscular Hemoglobin 29.5 pg (28.0-34.0); Mean Platelet Volume 10.2 fL (7.4-10.4); Monocytes # 0.8 10^3/uL (0.2-0.9); Neutrophils # 1.7 10^3/uL (1.8-7.7); Neutrophils % 40.8 %; Nucleated Red Blood Cells % 0 %; Platelet Count 411 10^3/cmm (130-400); Red Blood Count 3.56 10^6/uL (4.1-5.3); Red Cell Distribution Width 19.4 % (12.1-15.1); White Blood Count 4.3 10^3/uL (4.0-10.0)
[2019-09-02 11:52] LABS: Alanine Aminotransferase 18 U/L (0-41); Albumin Level 3.9 g/dL (3.5-5.2); Alkaline Phosphatase 118 IU/L (40-130); Anion Gap 15.9 (5-19); Aspartate Amino Transferase 21 U/L (0-40); Blood Urea Nitrogen 14 mg/dL (8-23); Calcium 9.2 mg/dL (8.5-10.5); Carbon Dioxide 22 mmol/L (22-29); Chloride 104 mmol/L (98-107); Globulin 2.2 g/dL (1.3-4.6); Glomerular Filtration Rate 54.6 mL/min (90-130); Glucose 91 mg/dL (65-115); Osmolality Calculated 282 mOsm/kg (285-295); Potassium 3.9 mmol/L (3.5-5.1); Sodium 138 mmol/L (136-145); Total Bilirubin 0.4 mg/dL (0.15-1.2); Total Protein 6.1 g/dL (6.6-8.7)
[2019-09-02] MEDS: sodium chloride 0.9% 500 ML 999 ML IV (12:50)
[2019-09-02] MEDS: dexamethasone 20 MG in sodium chloride 0.9% 50 ML 188 MG IV (13:13)
[2019-09-03] MEDS: dexamethasone 20 MG in sodium chloride 0.9% 50 ML 188 MG IV (09:05)
[2019-09-03] MEDS: sodium chloride 0.9% 500 ML 999 ML IV (09:53)
[2019-09-03 13:12] LABS: PROTEIN, TOTAL 5.8 g/dL (6.1-8.1)
[2019-09-03 14:36] LABS: ABNORMAL PROTEIN BAND 1 0.9 g/dL (NONE DETECTED); ALBUMIN 3.2 g/dL (3.8-4.8); ALPHA 1 GLOBULIN 0.3 g/dL (0.2-0.3); ALPHA 2 GLOBULIN 0.6 g/dL (0.5-0.9); BETA 1 GLOBULIN 0.4 g/dL (0.4-0.6); GAMMA GLOBULIN 0.3 g/dL (0.8-1.7)
[2019-09-03 16:26] LABS: KAPPA LIGHT CHAIN, FREE, SERUM 12.9 mg/L (3.3-19.4); KAPPA/LAMBDA LIGHT CHAINS FREE 0.94 (0.26-1.65); LAMBDA LIGHT CHAIN, FREE, SERU 13.7 mg/L (5.7-26.3)
--- NOTE | 2019-09-06 16:19 | ONC FU_ITS ---
[facility] Patient Note Patient: Nick Sheldon Unit #: [id number]: 1950 Dictated By: Michael LaguerreDate of Visit: Sep 02, 2019 Onc MED Follow-Up/Prog Note Chief Complaint: Monoclonal gammopathy. History of Present Illness: Mr Sheldon is a 69-year-old man with an IgA monoclonal gammopathy and suspected myeloma. He has been in excellent general health. 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 He has had no ongoing medical illnesses. He had been seen by Dr. Prado in April to establish primary care. His initial evaluation included a comprehensive metabolic profile on 04/13/2019 which showed elevated BUN and creatinine at 19 and 1.43 mg/dL and elevation of the calculated serum globulin at 4.4 g/dL. His further laboratory studies from 04/24/2019 included CBC showing hemoglobin 11.2 g with hematocrit 34%. The red cell indices were normal. The white blood cell count was 5200 and the platelet count was 185,000. His basic metabolic profile showed borderline renal function with BUN 19 and creatinine 1.46 mg/dL. Calcium was normal at 9.7 mg/dL. Protein electrophoresis showed an IgA lambda monoclonal protein which quantitated at 2.6 g/dL. A second M band measured 0.2 g/dL. The total protein was 8.0 g/dL and the albumin measured 3.8 g/dL. The quantitative immunoglobulin levels included IgA 3025 mg/dL, IgG 299 mg/dL, and IgM 14 mg/dL. The free light chain assay showed elevated lambda light chain at 39.1 mg/L with normal kappa light chain at 5.1 mg/L and decreased kappa/lambda ratio at 0.13. Skeletal survey was negative. Mr. Sheldon was seen by Dr. Sanches in May 2019. He was doing well at that time. He was referred to [facility]???Dr. Britton. He was seen by Dr. Britton on 06/05/2019. He continued to be asymptomatic. He underwent complete work-up including PET CT, bone marrow aspiration and biopsy. It was found on the bone marrow that he had lambda restricted plasma cell neoplasm involving 60% of the marrow cellularity. The plasma cells were positive for CD56 and negative for CD20, p53 and cyclin D1. Stains for CD3 and CD20 highlight scattered T and B lymphocytes effectively and show no morphologic evidence of lymphoma. The pancytokeratin is negative for metastatic carcinoma. Mr. Sheldon underwent PET CT imaging on 06/13/2019 with [facility] radiology. There was no evidence of active malignancy and no punched out FDG positive lytic osseous lesions typical for multiple myeloma. There were no incidental findings. With these findings, it was recommended that Mr. Sheldon proceed with therapy locally. He was advised to start carfilzomib, Revlimid and dexamethasone. He began his first cycle on August 05, 2019. Mr. Sheldon is here today for follow-up. He is due for cycle 2 day 1 and 2 carfilzomib. He resumed the Revlimid 15 mg daily today. He did develop rash with cycle 1. The Revlimid was interrupted and was held until rash resolved. He was rechallenged from day 15-21 and had no recurrent rash. Otherwise he tolerated cycle 1 well. He states he is still doing well overall. 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 He is tolerating this well. He denies any nausea or vomiting. He denies any diarrhea or constipation. He has no neuropathy symptoms. He has had no fever or chills. He denies mouth sores, sore throat or difficulty swallowing. He denies any pain. He has had no lower extremity edema. He denies any new shortness of breath orthopnea. He has had no recurrent rash. His ECOG is 0. Past Medical History: He has had ongoing medical illnesses. Past Surgical History: Colonoscopy in 2008 Allergies: No Known Allergies. Medications: Acyclovir 1 Tablet (of 400 mg) Oral daily Aspirin 1 Tablet (of 325 mg) Oral daily LORazepam 0.5 - 1 Tablet (of 1 mg) Oral t.i.d. PRN Prochlorperazine Maleate 1 Tablet (of 10 mg) Oral q 4 hours PRN Family History: Mr. Sheldon's mother is alive. Mr. Sheldon's father at age 79: prostate cancer. Mr. Sheldon has 2 brothers: 2 alive. He has 1 sister who is . Father of prostate cancer at age 79. Mother is still living at age 94 and is in reasonably good health. A sister with complications of mental retardation. Two brothers are still living. One has valvular heart disease. Social History: Mr. Sheldon is and he is retired. Mr. Sheldon has never smoked. He has no history of drinking. Mr. Sheldon reports the following support systems: lives with spouse, significant other, family, or friends, lives in own house, supportive family/friends willing to assist with needs, and adequate transportation available for expected visits. His diet consists of regular meals. He indicates his activity level as: regular exercise. 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 He is a non-smoker. He does not drink alcohol. Review Of Symptoms: Constitutional Denies fevers, chills, night sweats, excessive fatigue or weight loss. Allergic/Immunologic No reactions. Rash from previous visit has resolved. Eyes Denies significant visual changes. No diplopia. No amaurosis. ENMT Denies changes in hearing, sore throat, mouth sores, difficulty or changes in swallowing ability, and/or sinus drainage. Hematologic/Lymphatic Denies easy bruising or bleeding. The patient denies any tender or palpable lymph nodes. Respiratory Denies dyspnea on exertion, chest pain, cough or hemoptysis. Denies orthopnea. Cardiovascular Denies anginal chest pain, palpitations or orthopnea. Gastrointestinal Denies nausea, vomiting, diarrhea, GI bleeding, or constipation. Denies change in bowel habits and/or stool color, no heartburn or early satiety. Genitourinary (M) Denies hematuria, dysuria, increased frequency, urgency, hesitancy or incontinence. Musculoskeletal Denies joint pain, swelling or redness. No decreased range of motion. Integumentary Denies chronic rashes, inflammation, ulcerations or skin changes. New onset of rash/hives on chest, neck and head about 3-4 days ago. Mild itching but no exudate or signs of infection. Neurologic Denies headache, blurred vision, and no areas of focal weakness or numbness. Normal gait. No sensory problems. Psychiatric Denies insomnia, depression, daniela or mood swings. Vital Signs: Performed on Sep 02, 2019 12:19 Height - 74.00 in Weight - 189.4 lbs BSA - 2.12 sq.m BMI - 24.32 Temperature - 7.3 F (LOW) Pulse - 60 /min Respiration - 18 /min BP - 125/70 mm(hg) O2 Sat - 99 % Pain - 0,0 - Fully active, able to carry on all predisease activities without restrictions. (ECOG) Physical Examination: Constitutional Alert, oriented, no acute distress. Skin pink, warm and dry. Head Normocephalic; atraumatic. Eyes Conjunctivae and sclerae are clear and without icterus. Pupils are reactive and equal. ENMT No oral exudates, ulcers, masses, thrush or mucositis. Oropharynx clear. Tongue normal. Neck Supple without masses or thyromegaly. No jugular venous distension. Hematologic/Lymphatic No petechiae or purpura. Respiratory Lungs are clear to auscultation without rhonchi or wheezing. Cardiovascular Regular rate and rhythm of heart without murmurs,clicks, gallops or rubs. Abdomen Non-tender, non-distended, no masses or ascites. Good bowel sounds noted in all quads. No guarding or rebound tenderness. No pulsatile masses. Back/Spine Non-tender to palpation. Extremities No visible deformities, no cyanosis, clubbing or edema. Musculoskeletal No tenderness or swelling, normal range of motion without obvious weakness. Integumentary No rashes or lesions. Neurologic No sensory or motor deficits, normal cerebellar function, normal gait. Psychiatric Alert and oriented times three. Coherent speech. Verbalizes understanding of our discussions today. Laboratory:Test performed on Sep 02, 2019 10:00 Sodium 138 mmol/L Potassium 3.9 mmol/L Chloride 104 mmol/L CO2 22 mmol/L Anion Gap 15.9 BUN 14 mg/dL Creatinine 1.3 mg/dL Cr Clearance (Est) 64.7300 mL/min eGFR 54.6 mL/min Glucose 91 mg/dL Calcium 9.2 mg/dL Protein, Total 6.1 g/dL Albumin 3.9 g/dL Globulin 2.2 g/dL Bilirubin, Total 0.4 mg/dL ALT (SGPT) 18 U/L AST (SGOT) 21 U/L Alkaline Phosphatase 118 IU/L WBC 4.3 10 3/uL RBC 3.56 10 6/uL HGB 10.5 g/dL HCT 33.1 % MCV 93.0 fL MCH 29.5 pg MCHC 31.7 g/dL RDW 19.4 % Platelet Count 411 10 3/cmm MPV 10.2 fL Neutrophils 1.7 10 3/uL Lymphocytes 1.3 10 3/uL Monocytes 0.8 10 3/uL Eosinophils 0.2 10 3/uL Basophils 0.2 10 3/uL Neutrophil % 40.8 % Lymphocyte % 30.8 % Manual Lymphocytes 30.8 % Manual Monocytes 19.0 % Monocyte % 19.0 % Eosinophil % 5.4 % Manual Eosinophils 5.4 % Basophils % 3.8 % Manual Basophils 3.8 % Test performed on Apr 13, 2019 08:36 Cholesterol, Total 199 mg/dL HDL Cholesterol 43 mg/dL LDL Cholesterol 131 mg/dL BUN/Creatinine Ratio 13 Absolute Value Triglycerides 137 mg/dL A/G Ratio 0.9 Absolute Value Impression: 1. Patient with IgA lambda monoclonal gammopathy. He also has mild anemia and mild renal impairment. Taken together, the findings are consistent with stage I myeloma. 2. He is not overtly symptomatic with it. It was found on the bone marrow that he had lambda restricted plasma cell neoplasm involving 60% of the marrow cellularity. The plasma cells were positive for CD56 and negative for CD20, p53 and cyclin D1. Stains for CD3 and CD20 highlight scattered T and B lymphocytes effectively and show no morphologic evidence of lymphoma. The pancytokeratin is negative for metastatic carcinoma. Mr. Sheldon underwent PET CT imaging on 06/13/2019 with [facility] radiology. There was no evidence of active malignancy and no punched out FDG positive lytic osseous lesions typical for multiple myeloma. There were no incidental findings. With these findings, it was recommended that Mr. Sheldon proceed with therapy locally. He was advised to start carfilzomib, Revlimid and dexamethasone. He began his first cycle on August 05, 2019. His first cycle was interrupted due to a skin rash-presumably from the Revlimid. The Revlimid was held and the carfilzomib was continued. The rash resolved and he has not had recurrence. He was rechallenged with the Revlimid day 15 through 21 and has had no recurrent rash. Plan: 1. Proceed with cycle 2 day 1 & 2 Kyprolis (carfilzomib). 2. He resumed Revlimid 15 mg today. 3. Continue acyclovir daily for now. Bactrim DR 1 twice daily 2 days a week for prophylaxis. 4. Labs from today were reviewed in detail and discussed with Mr. Sheldon and a copy was given to him. WBC 4.3, hemoglobin 10.5, platelets 411,000, and ANC is 1700. 5. We will plan to see him back in 1 week for day 8 and 9 carfilzomib at which time he is been asked to have a CBC, CMP. 6. Mr. Sheldon was advised to let us know if he has recurrent rash. 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 He was reminded that he could try Benadryl, Claritin or Zyrtec [id number] should he develop any itching from the rash. 7. Mr. Sheldon has been instructed to contact us in the interim should questions or problems arise. Signed By: Michael Laguerre-JENNIFER, AOCNP Tram Sanches MD <<Signature on File>>
[2019-09-09 11:15] LABS: Basophils % 0.7 %; Eosinophils # 0.5 10^3/uL (0.0-0.8); Eosinophils % 10.5 %; Hematocrit 33.8 % (42.0-52.0); Hemoglobin 10.8 g/dL (11.7-16.6); Lymphocytes # 1.7 10^3/uL (0.8-4.8); Lymphocytes % 39.7 %; Mean Corpuscular Hemoglobin 29.3 pg (28.0-34.0); Mean Corpuscular Volume 91.6 fL (80-94); Mean Platelet Volume 12.1 fL (7.4-10.4); Monocytes # 0.6 10^3/uL (0.2-0.9); Monocytes % 13.1 %; Neutrophils # 1.5 10^3/uL (1.8-7.7); Neutrophils % 35.1 %; Nucleated Red Blood Cells % 0 %; Platelet Count 118 10^3/cmm (130-400); Red Blood Count 3.69 10^6/uL (4.1-5.3); Red Cell Distribution Width 19.2 % (12.1-15.1); White Blood Count 4.3 10^3/uL (4.0-10.0)
[2019-09-09 11:28] LABS: Alanine Aminotransferase 18 U/L (0-41); Albumin Level 3.8 g/dL (3.5-5.2); Alkaline Phosphatase 111 IU/L (40-130); Anion Gap 12.9 (5-19); Aspartate Amino Transferase 20 U/L (0-40); Blood Urea Nitrogen 13 mg/dL (8-23); Calcium 8.3 mg/dL (8.5-10.5); Carbon Dioxide 24 mmol/L (22-29); Chloride 104 mmol/L (98-107); Globulin 1.8 g/dL (1.3-4.6); Glomerular Filtration Rate 59.9 mL/min (90-130); Glucose 91 mg/dL (65-115); Osmolality Calculated 280 mOsm/kg (285-295); Potassium 3.9 mmol/L (3.5-5.1); Sodium 137 mmol/L (136-145); Total Bilirubin 0.5 mg/dL (0.15-1.2); Total Protein 5.6 g/dL (6.6-8.7)
[2019-09-09] MEDS: sodium chloride 0.9% 500 ML 999 ML IV (13:15)
[2019-09-09] MEDS: dexamethasone 20 MG in sodium chloride 0.9% 50 ML 188 MG IV (13:31)
[2019-09-10] MEDS: sodium chloride 0.9% 500 ML 999 ML IV (08:40)
[2019-09-10] MEDS: dexamethasone 20 MG in sodium chloride 0.9% 50 ML 188 MG IV (09:05)
[2019-09-10 10:08] LABS: Magnesium 2.4 mg/dL (1.7-2.3)
--- NOTE | 2019-09-13 23:35 | ONC FU_ITS ---
[facility] Patient Note Patient: Nick Sheldon Unit #: [id number]: 1950 Dictated By: Michael LaguerreDate of Visit: Sep 09, 2019 Onc MED Follow-Up/Prog Note Chief Complaint: Monoclonal gammopathy. History of Present Illness: Mr Sheldon is a 69-year-old man with an IgA monoclonal gammopathy and suspected myeloma. He has been in excellent general health. 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 He has had no ongoing medical illnesses. He had been seen by Dr. Prado in April to establish primary care. His initial evaluation included a comprehensive metabolic profile on 04/13/2019 which showed elevated BUN and creatinine at 19 and 1.43 mg/dL and elevation of the calculated serum globulin at 4.4 g/dL. His further laboratory studies from 04/24/2019 included CBC showing hemoglobin 11.2 g with hematocrit 34%. The red cell indices were normal. The white blood cell count was 5200 and the platelet count was 185,000. His basic metabolic profile showed borderline renal function with BUN 19 and creatinine 1.46 mg/dL. Calcium was normal at 9.7 mg/dL. Protein electrophoresis showed an IgA lambda monoclonal protein which quantitated at 2.6 g/dL. A second M band measured 0.2 g/dL. The total protein was 8.0 g/dL and the albumin measured 3.8 g/dL. The quantitative immunoglobulin levels included IgA 3025 mg/dL, IgG 299 mg/dL, and IgM 14 mg/dL. The free light chain assay showed elevated lambda light chain at 39.1 mg/L with normal kappa light chain at 5.1 mg/L and decreased kappa/lambda ratio at 0.13. Skeletal survey was negative. Mr. Sheldon was seen by Dr. Sanches in May 2019. He was doing well at that time. He was referred to [facility]???Dr. Britton. He was seen by Dr. Britton on 06/05/2019. He continued to be asymptomatic. He underwent complete work-up including PET CT, bone marrow aspiration and biopsy. It was found on the bone marrow that he had lambda restricted plasma cell neoplasm involving 60% of the marrow cellularity. The plasma cells were positive for CD56 and negative for CD20, p53 and cyclin D1. Stains for CD3 and CD20 highlight scattered T and B lymphocytes effectively and show no morphologic evidence of lymphoma. The pancytokeratin is negative for metastatic carcinoma. Mr. Sheldon underwent PET CT imaging on 06/13/2019 with [facility] radiology. There was no evidence of active malignancy and no punched out FDG positive lytic osseous lesions typical for multiple myeloma. There were no incidental findings. With these findings, it was recommended that Mr. Sheldon proceed with therapy locally. He was advised to start carfilzomib, Revlimid and dexamethasone. He began his first cycle on August 05, 2019. Mr. Sheldon is here today for follow-up. He is due for cycle 2 day 8 and 9 carfilzomib. He resumed the Revlimid 15 mg daily on 09/02/2019. He did develop rash with cycle 1. The Revlimid was interrupted and was held until rash resolved. He was rechallenged from day 15-21 and had no recurrent rash. Otherwise he tolerated cycle 1 well. He states overall he is doing well. He has been out working in his yard. He has been doing things that he had been doing prior to being sick. He states that he feels really good overall. His only concern is that he has had some hand cramping/drawing. He states he notices this after he is been working out in the yard quite a bit. He states he is staying well-hydrated. He denies any other leg cramps. He states his appetite is good. He denies fever, chills mouth sores, sore throat or difficulty swallowing. He has had no signs of infection for at least the last 72 hours. He denies any shortness of breath orthopnea. He denies chest pain or palpitations. He states he has had no diarrhea or constipation. He denies any neuropathy symptoms at this time. His ECOG is 0. Past Medical History: He has had ongoing medical illnesses. Past Surgical History: Colonoscopy in 2008 Allergies: No Known Allergies. Medications: Acyclovir 1 Tablet (of 400 mg) Oral daily Aspirin 1 Tablet (of 325 mg) Oral daily LORazepam 0.5 - 1 Tablet (of 1 mg) Oral t.i.d. PRN Prochlorperazine Maleate 1 Tablet (of 10 mg) Oral q 4 hours PRN Family History: Mr. Sheldon's mother is alive. Mr. Sheldon's father at age 79: prostate cancer. Mr. Sheldon has 2 brothers: 2 alive. He has 1 sister who is . Father of prostate cancer at age 79. Mother is still living at age 94 and is in reasonably good health. A sister with complications of mental retardation. Two brothers are still living. One has valvular heart disease. Social History: Mr. Sheldon is and he is retired. Mr. Sheldon has never smoked. He has no history of drinking. Mr. Sheldon reports the following support systems: lives with spouse, significant other, family, or friends, lives in own house, supportive family/friends willing to assist with needs, and adequate transportation available for expected visits. His diet consists of regular meals. He indicates his activity level as: regular exercise. 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 He does not drink alcohol. Review Of Symptoms: Constitutional Denies fevers, chills, night sweats, excessive fatigue or weight loss. Allergic/Immunologic No reactions. Rash from previous visit has resolved. Eyes Denies significant visual changes. No diplopia. No amaurosis. ENMT Denies changes in hearing, sore throat, mouth sores, difficulty or changes in swallowing ability, and/or sinus drainage. Hematologic/Lymphatic Denies easy bruising or bleeding. The patient denies any tender or palpable lymph nodes. Respiratory Denies dyspnea on exertion, chest pain, cough or hemoptysis. Denies orthopnea. Cardiovascular Denies anginal chest pain, palpitations or orthopnea. Gastrointestinal Denies nausea, vomiting, diarrhea, GI bleeding, or constipation. Denies change in bowel habits and/or stool color, no heartburn or early satiety. Genitourinary (M) Denies hematuria, dysuria, increased frequency, urgency, hesitancy or incontinence. Musculoskeletal Denies joint pain, swelling or redness. No decreased range of motion. Bilateral hand cramps / drawing up at times. He states he cannot identify a certain trigger and they do ease on their own. Integumentary Denies chronic rashes, inflammation, ulcerations or skin changes. New onset of rash/hives on chest, neck and head about 3-4 days ago. Mild itching but no exudate or signs of infection. Neurologic Denies headache, blurred vision, and no areas of focal weakness or numbness. Normal gait. No sensory problems. Psychiatric Denies insomnia, depression, daniela or mood swings. Vital Signs: Performed on Sep 09, 2019 12:41 Height - 74.00 in Weight - 192.0 lbs (HIGH) BSA - 2.14 sq.m BMI - 24.65 Temperature - 97.4 F (LOW) Pulse - 65 /min Respiration - 16 /min BP - 144/64 mm(hg) (HIGH) O2 Sat - 98 % Pain - 0,0 - Fully active, able to carry on all predisease activities without restrictions. (ECOG) Physical Examination: Constitutional Alert, oriented, no acute distress. Skin pink, warm and dry. Head Normocephalic; atraumatic. Eyes Conjunctivae and sclerae are clear and without icterus. Pupils are reactive and equal. ENMT No oral exudates, ulcers, masses, thrush or mucositis. Oropharynx clear. Tongue normal. Neck Supple without masses or thyromegaly. No jugular venous distension. Hematologic/Lymphatic No petechiae or purpura. Respiratory Lungs are clear to auscultation without rhonchi or wheezing. Cardiovascular Regular rate and rhythm of heart without murmurs,clicks, gallops or rubs. Abdomen Non-tender, non-distended, no masses or ascites. Good bowel sounds noted in all quads. No guarding or rebound tenderness. No pulsatile masses. Back/Spine Non-tender to palpation. Extremities No visible deformities, no cyanosis, clubbing or edema. Musculoskeletal No tenderness or swelling, normal range of motion without obvious weakness. Integumentary No rashes or lesions. Neurologic No sensory or motor deficits, normal cerebellar function, normal gait. Psychiatric Alert and oriented times three. Coherent speech. Verbalizes understanding of our discussions today. Laboratory:Test performed on Sep 09, 2019 10:55 Magnesium 2.4 mg/dL Sodium 137 mmol/L Potassium 3.9 mmol/L Chloride 104 mmol/L CO2 24 mmol/L Anion Gap 12.9 BUN 13 mg/dL Creatinine 1.2 mg/dL Cr Clearance (Est) 70.1200 mL/min eGFR 59.9 mL/min Glucose 91 mg/dL Calcium 8.3 mg/dL Protein, Total 5.6 g/dL Albumin 3.8 g/dL Globulin 1.8 g/dL Bilirubin, Total 0.5 mg/dL ALT (SGPT) 18 U/L AST (SGOT) 20 U/L Alkaline Phosphatase 111 IU/L WBC 4.3 10 3/uL RBC 3.69 10 6/uL HGB 10.8 g/dL HCT 33.8 % MCV 91.6 fL MCH 29.3 pg MCHC 32.0 g/dL RDW 19.2 % Platelet Count 118 10 3/cmm MPV 12.1 fL Neutrophils 1.5 10 3/uL Lymphocytes 1.7 10 3/uL Monocytes 0.6 10 3/uL Eosinophils 0.5 10 3/uL Basophils 0.0 10 3/uL Neutrophil % 35.1 % Lymphocyte % 39.7 % Monocyte % 13.1 % Eosinophil % 10.5 % Basophils % 0.7 % NRBC % 0 % Test performed on Sep 02, 2019 10:00 Manual Lymphocytes 30.8 % Manual Monocytes 19.0 % Manual Eosinophils 5.4 % Manual Basophils 3.8 % Impression: 1. Patient with IgA lambda monoclonal gammopathy. He also has mild anemia and mild renal impairment. Taken together, the findings are consistent with stage I myeloma. 2. He is not overtly symptomatic with it. It was found on the bone marrow that he had lambda restricted plasma cell neoplasm involving 60% of the marrow cellularity. The plasma cells were positive for CD56 and negative for CD20, p53 and cyclin D1. Stains for CD3 and CD20 highlight scattered T and B lymphocytes effectively and show no morphologic evidence of lymphoma. The pancytokeratin is negative for metastatic carcinoma. Mr. Sheldon underwent PET CT imaging on 06/13/2019 with [facility] radiology. There was no evidence of active malignancy and no punched out FDG positive lytic osseous lesions typical for multiple myeloma. There were no incidental findings. With these findings, it was recommended that Mr. Sheldon proceed with therapy locally. He was advised to start carfilzomib, Revlimid and dexamethasone. He began his first cycle on August 05, 2019. His first cycle was interrupted due to a skin rash-presumably from the Revlimid. The Revlimid was held and the carfilzomib was continued. The rash resolved and he has not had recurrence. He was rechallenged with the Revlimid day 15 through 21 and has had no recurrent rash. Mr. Sheldon presents today for cycle 2-day 8 and 9 carfilzomib. He has neutropenia with an ANC of 1500 and thrombocytopenia with a platelet count of 118. It was 411,000 last week. He is asymptomatic. Plan: 1. Proceed with cycle 2 day 8 & 9 Kyprolis (carfilzomib). 2. Hold Revlimid 15 mg starting today due to ANC of 1500 & platelet count of 118,000 ( was 411,000 last week). This is day 8 of cycle 2 of the Revlimid. Will plan to hold until next cycle and resume @ 10 mg daily. 3. Continue acyclovir daily for now. Bactrim DS 1 twice daily- 2 days a week for prophylaxis. 4. Labs from today were reviewed in detail and discussed with Mr. Sheldon and a copy was given to him. WBC 4.3, hemoglobin 10.8, platelets 118,000, and ANC is 1500. 5. We will plan to see him back in 1 week for day 15 and 16 carfilzomib at which time he is been asked to have a CBC, CMP. 6. Mr. hSeldon was advised to let us know if he has fever, chills or any signs of infection. His also advised to let us know if he has any rash. 7. Mr. Sheldon has been instructed to contact us in the interim should questions or problems arise. Signed By: Michael Laguerre-, AOCNP Olu Sanches MD <<Signature on File>>
[2019-09-16 10:23] LABS: Basophils # 0.1 10^3/uL (0.0-0.1); Basophils % 0.9 %; Eosinophils # 0.4 10^3/uL (0.0-0.8); Eosinophils % 6.4 %; Hematocrit 35.5 % (42.0-52.0); Hemoglobin 11.5 g/dL (11.7-16.6); Lymphocytes # 2.3 10^3/uL (0.8-4.8); Lymphocytes % 36.5 %; Mean Corpuscular HGB Conc 32.4 g/dL (30.0-36.0); Mean Corpuscular Hemoglobin 29.9 pg (28.0-34.0); Mean Corpuscular Volume 92.2 fL (80-94); Mean Platelet Volume 11.5 fL (7.4-10.4); Monocytes # 1.1 10^3/uL (0.2-0.9); Monocytes % 16.8 %; Neutrophils # 2.5 10^3/uL (1.8-7.7); Neutrophils % 38.9 %; Nucleated Red Blood Cells % 0 %; Platelet Count 195 10^3/cmm (130-400); Red Blood Count 3.85 10^6/uL (4.1-5.3); Red Cell Distribution Width 18.8 % (12.1-15.1); White Blood Count 6.4 10^3/uL (4.0-10.0)
[2019-09-16 10:35] LABS: Alanine Aminotransferase 16 U/L (0-41); Albumin Level 3.8 g/dL (3.5-5.2); Alkaline Phosphatase 119 IU/L (40-130); Anion Gap 15.1 (5-19); Aspartate Amino Transferase 18 U/L (0-40); Blood Urea Nitrogen 15 mg/dL (8-23); Calcium 8.8 mg/dL (8.5-10.5); Carbon Dioxide 22 mmol/L (22-29); Chloride 103 mmol/L (98-107); Globulin 2.2 g/dL (1.3-4.6); Glomerular Filtration Rate 66.2 mL/min (90-130); Glucose 89 mg/dL (65-115); Osmolality Calculated 278 mOsm/kg (285-295); Potassium 4.1 mmol/L (3.5-5.1); Sodium 136 mmol/L (136-145); Total Bilirubin 0.5 mg/dL (0.15-1.2)
[2019-09-16] MEDS: sodium chloride 0.9% 500 ML 999 ML IV (12:09)
[2019-09-16] MEDS: dexamethasone 20 MG in sodium chloride 0.9% 50 ML 188 MG IV (12:25)
[2019-09-17] MEDS: dexamethasone 20 MG in sodium chloride 0.9% 50 ML 188 MG IV (08:34)
[2019-09-17] MEDS: sodium chloride 0.9% 500 ML 999 ML IV (09:26)
--- NOTE | 2019-09-20 16:54 | ONC FU_ITS ---
D[facility] Frankel Patient Note Patient: Nick Sheldon Unit #: [id number]: 1950 Dictated By: Michael LaguerreDate of Visit: Sep 16, 2019 Onc MED Follow-Up/Prog Note Chief Complaint: Monoclonal gammopathy. History of Present Illness: Mr Sheldon is a 69-year-old man with an IgA monoclonal gammopathy and suspected myeloma. He has been in excellent general health. 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 He has had no ongoing medical illnesses. He had been seen by Dr. Prado in April to establish primary care. His initial evaluation included a comprehensive metabolic profile on 04/13/2019 which showed elevated BUN and creatinine at 19 and 1.43 mg/dL and elevation of the calculated serum globulin at 4.4 g/dL. His further laboratory studies from 04/24/2019 included CBC showing hemoglobin 11.2 g with hematocrit 34%. The red cell indices were normal. The white blood cell count was 5200 and the platelet count was 185,000. His basic metabolic profile showed borderline renal function with BUN 19 and creatinine 1.46 mg/dL. Calcium was normal at 9.7 mg/dL. Protein electrophoresis showed an IgA lambda monoclonal protein which quantitated at 2.6 g/dL. A second M band measured 0.2 g/dL. The total protein was 8.0 g/dL and the albumin measured 3.8 g/dL. The quantitative immunoglobulin levels included IgA 3025 mg/dL, IgG 299 mg/dL, and IgM 14 mg/dL. The free light chain assay showed elevated lambda light chain at 39.1 mg/L with normal kappa light chain at 5.1 mg/L and decreased kappa/lambda ratio at 0.13. Skeletal survey was negative. Mr. Sheldon was seen by Dr. Sanches in May 2019. He was doing well at that time. He was referred to [facility]???Dr. Britton. He was seen by Dr. Britton on 06/05/2019. He continued to be asymptomatic. He underwent complete work-up including PET CT, bone marrow aspiration and biopsy. It was found on the bone marrow that he had lambda restricted plasma cell neoplasm involving 60% of the marrow cellularity. The plasma cells were positive for CD56 and negative for CD20, p53 and cyclin D1. Stains for CD3 and CD20 highlight scattered T and B lymphocytes effectively and show no morphologic evidence of lymphoma. The pancytokeratin is negative for metastatic carcinoma. Mr. Sheldon underwent PET CT imaging on 06/13/2019 with [facility] radiology. There was no evidence of active malignancy and no punched out FDG positive lytic osseous lesions typical for multiple myeloma. There were no incidental findings. With these findings, it was recommended that Mr. Sheldon proceed with therapy locally. He was advised to start carfilzomib, Revlimid and dexamethasone. He began his first cycle on August 05, 2019. Mr. Sheldon is here today for follow-up. He is due for cycle 2 day 15 and 16 carfilzomib. He stopped the Revlimid 15 mg daily on 09/10/2019 due to neutropenia. His platelet count was 118. Dropped from 411 the week before. His ANC was 1500 and was 1700 the week prior. He did develop rash with cycle 1. The Revlimid was interrupted and was held until rash resolved. He was rechallenged from day 15-21 and had no recurrent rash. Otherwise he tolerated cycle 1 well. He states overall he is doing well. 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 He is tolerating that well. He states his appetite is good. He denies fever, chills mouth sores, sore throat or difficulty swallowing. He has had no signs of infection for at least the last 72 hours. He denies any shortness of breath orthopnea. He denies chest pain or palpitations. He states he has had no diarrhea or constipation. He denies any neuropathy symptoms at this time. His ECOG is 0. Past Medical History: He has had ongoing medical illnesses. Past Surgical History: Colonoscopy in 2008 Allergies: No Known Allergies. Medications: Acyclovir 1 Tablet (of 400 mg) Oral daily Aspirin 1 Tablet (of 325 mg) Oral daily LORazepam 0.5 - 1 Tablet (of 1 mg) Oral t.i.d. PRN Prochlorperazine Maleate 1 Tablet (of 10 mg) Oral q 4 hours PRN Family History: Mr. Sheldon's mother is alive. Mr. Sheldon's father at age 79: prostate cancer. Mr. Sheldon has 2 brothers: 2 alive. He has 1 sister who is . Father of prostate cancer at age 79. Mother is still living at age 94 and is in reasonably good health. A sister with complications of mental retardation. Two brothers are still living. One has valvular heart disease. Social History: Mr. Sheldon is and he is retired. Mr. Sheldon has never smoked. He has no history of drinking. Mr. Sheldon reports the following support systems: lives with spouse, significant other, family, or friends, lives in own house, supportive family/friends willing to assist with needs, and adequate transportation available for expected visits. His diet consists of regular meals. He indicates his activity level as: regular exercise. 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 He is a non-smoker. He does not drink alcohol. Review Of Symptoms: Constitutional Denies fevers, chills, night sweats, excessive fatigue or weight loss. Allergic/Immunologic No reactions. Rash from previous visit has resolved. Eyes Denies significant visual changes. No diplopia. No amaurosis. ENMT Denies changes in hearing, sore throat, mouth sores, difficulty or changes in swallowing ability, and/or sinus drainage. Hematologic/Lymphatic Denies easy bruising or bleeding. The patient denies any tender or palpable lymph nodes. Respiratory Denies dyspnea on exertion, chest pain, cough or hemoptysis. Denies orthopnea. Cardiovascular Denies anginal chest pain, palpitations or orthopnea. Gastrointestinal Denies nausea, vomiting, diarrhea, GI bleeding, or constipation. Denies change in bowel habits and/or stool color, no heartburn or early satiety. Genitourinary (M) Denies hematuria, dysuria, increased frequency, urgency, hesitancy or incontinence. Musculoskeletal Denies joint pain, swelling or redness. No decreased range of motion. Bilateral hand cramps / drawing up at times. He states he cannot identify a certain trigger and they do ease on their own. Integumentary Denies chronic rashes, inflammation, ulcerations or skin changes. New onset of rash/hives on chest, neck and head about 3-4 days ago. Mild itching but no exudate or signs of infection. Neurologic Denies headache, blurred vision, and no areas of focal weakness or numbness. Normal gait. No sensory problems. Psychiatric Denies insomnia, depression, daniela or mood swings. Vital Signs: Performed on Sep 16, 2019 11:33 Height - 74.00 in Weight - 189.2 lbs (LOW) BSA - 2.12 sq.m BMI - 24.29 Temperature - 97.7 F (LOW) Pulse - 75 /min Respiration - 18 /min BP - 147/71 mm(hg) (HIGH) O2 Sat - 98 % Pain - 0,0 - Fully active, able to carry on all predisease activities without restrictions. (ECOG) Physical Examination: Constitutional Alert, oriented, no acute distress. Skin pink, warm and dry. Head Normocephalic; atraumatic. Eyes Conjunctivae and sclerae are clear and without icterus. Pupils are reactive and equal. ENMT No oral exudates, ulcers, masses, thrush or mucositis. Oropharynx clear. Tongue normal. Neck Supple without masses or thyromegaly. No jugular venous distension. Hematologic/Lymphatic No petechiae or purpura. Respiratory Lungs are clear to auscultation without rhonchi or wheezing. Cardiovascular Regular rate and rhythm of heart without murmurs,clicks, gallops or rubs. Abdomen Non-tender, non-distended, no masses or ascites. Good bowel sounds noted in all quads. No guarding or rebound tenderness. No pulsatile masses. Back/Spine Non-tender to palpation. Extremities No visible deformities, no cyanosis, clubbing or edema. Musculoskeletal No tenderness or swelling, normal range of motion without obvious weakness. Integumentary No rashes or lesions. Neurologic No sensory or motor deficits, normal cerebellar function, normal gait. Psychiatric Alert and oriented times three. Coherent speech. Verbalizes understanding of our discussions today. Laboratory:Test performed on Sep 16, 2019 10:02 Sodium 136 mmol/L Potassium 4.1 mmol/L Chloride 103 mmol/L CO2 22 mmol/L Anion Gap 15.1 BUN 15 mg/dL Creatinine 1.1 mg/dL Cr Clearance (Est) 76.4900 mL/min eGFR 66.2 mL/min Glucose 89 mg/dL Calcium 8.8 mg/dL Protein, Total 6.0 g/dL Albumin 3.8 g/dL Globulin 2.2 g/dL Bilirubin, Total 0.5 mg/dL ALT (SGPT) 16 U/L AST (SGOT) 18 U/L Alkaline Phosphatase 119 IU/L WBC 6.4 10 3/uL RBC 3.85 10 6/uL HGB 11.5 g/dL HCT 35.5 % MCV 92.2 fL MCH 29.9 pg MCHC 32.4 g/dL RDW 18.8 % Platelet Count 195 10 3/cmm MPV 11.5 fL Neutrophils 2.5 10 3/uL Lymphocytes 2.3 10 3/uL Monocytes 1.1 10 3/uL Eosinophils 0.4 10 3/uL Basophils 0.1 10 3/uL Neutrophil % 38.9 % Lymphocyte % 36.5 % Monocyte % 16.8 % Eosinophil % 6.4 % Basophils % 0.9 % NRBC % 0 % Test performed on Sep 09, 2019 10:55 Magnesium 2.4 mg/dL Impression: 1. Patient with IgA lambda monoclonal gammopathy. He also has mild anemia and mild renal impairment. Taken together, the findings are consistent with stage I myeloma. 2. He is not overtly symptomatic with it. It was found on the bone marrow that he had lambda restricted plasma cell neoplasm involving 60% of the marrow cellularity. The plasma cells were positive for CD56 and negative for CD20, p53 and cyclin D1. Stains for CD3 and CD20 highlight scattered T and B lymphocytes effectively and show no morphologic evidence of lymphoma. The pancytokeratin is negative for metastatic carcinoma. Mr. Sheldon underwent PET CT imaging on 06/13/2019 with [facility] radiology. There was no evidence of active malignancy and no punched out FDG positive lytic osseous lesions typical for multiple myeloma. There were no incidental findings. With these findings, it was recommended that Mr. Sheldon proceed with therapy locally. He was advised to start carfilzomib, Revlimid and dexamethasone. He began his first cycle on August 05, 2019. His first cycle was interrupted due to a skin rash-presumably from the Revlimid. The Revlimid was held and the carfilzomib was continued. The rash resolved and he has not had recurrence. He was rechallenged with the Revlimid day 15 through 21 and has had no recurrent rash. Mr. Sheldon presents today for cycle 2-day 15 and 16 carfilzomib. On cycle 2 day 8 he had neutropenia with an ANC of 1500 and thrombocytopenia with a platelet count of 118. It was 411,000 the week before. He is asymptomatic. His Revlimid was placed on hold on 09/10/2019 due to neutropenia with an ANC of 1500. Plan: 1. Proceed with cycle 2 day 15 & 16 Kyprolis (carfilzomib). 2. Continue to hold Revlimid 15 mg-he started on 09/10/2019 due to ANC of 1500 & platelet count of 118,000 ( was 411,000 the week prior). This is day 15 of cycle 2 of the Revlimid. Will plan to hold until next cycle and resume @ 10 mg daily. 3. Continue acyclovir daily for now. Bactrim DS 1 twice daily- 2 days a week for prophylaxis. 4. Labs from today were reviewed in detail and discussed with Mr. Sheldon and a copy was given to him. WBC 6.4, hemoglobin 11.5, platelets 195,000, and ANC is 2500. 5. We will plan to see him back in 2 weeks for cycle 3 day 1 and 2 carfilzomib at which time he is been asked to have a CBC, CMP as well as his multiple myeloma labs-SPEP with CLIFFORD, free light chain assay and QUIGS . 6. Mr. Sheldon was advised to let us know if he has fever, chills or any signs of infection. His also advised to let us know if he has any recurrent rash. 7. Mr. Sheldon has been instructed to contact us in the interim should questions or problems arise. Signed By: Michael Laguerre-, AOCNP Olu Sanches MD <<Signature on File>>
[2019-09-21 09:26] LABS: Alanine Aminotransferase 15 U/L (0-41); Albumin Level 3.5 g/dL (3.5-5.2); Alkaline Phosphatase 105 IU/L (40-130); Anion Gap 14.5 (5-19); Aspartate Amino Transferase 17 U/L (0-40); Blood Urea Nitrogen 17 mg/dL (8-23); Calcium 8.8 mg/dL (8.5-10.5); Carbon Dioxide 24 mmol/L (22-29); Chloride 103 mmol/L (98-107); Globulin 2.4 g/dL (1.3-4.6); Glomerular Filtration Rate 73.9 mL/min (90-130); Glucose 91 mg/dL (65-115); Osmolality Calculated 280 mOsm/kg (285-295); Potassium 4.5 mmol/L (3.5-5.1); Sodium 137 mmol/L (136-145); Total Bilirubin 0.7 mg/dL (0.15-1.2); Total Protein 5.9 g/dL (6.6-8.7)
[2019-09-28 09:40] LABS: Basophils # 0.1 10^3/uL (0.0-0.1); Eosinophils # 0.4 10^3/uL (0.0-0.8); Eosinophils % 8.1 %; Hematocrit 35.8 % (42.0-52.0); Hemoglobin 11.3 g/dL (11.7-16.6); Lymphocytes % 40.6 %; Mean Corpuscular HGB Conc 31.6 g/dL (30.0-36.0); Mean Corpuscular Hemoglobin 29.9 pg (28.0-34.0); Mean Corpuscular Volume 94.7 fL (80-94); Mean Platelet Volume 10.5 fL (7.4-10.4); Monocytes # 0.7 10^3/uL (0.2-0.9); Monocytes % 13.8 %; Neutrophils # 1.7 10^3/uL (1.8-7.7); Neutrophils % 34.3 %; Nucleated Red Blood Cells % 0 %; Platelet Count 323 10^3/cmm (130-400); Red Blood Count 3.78 10^6/uL (4.1-5.3); White Blood Count 4.9 10^3/uL (4.0-10.0)
[2019-09-28 10:21] LABS: Immunoglobulin IGA 104 mg/dL (70-400); Immunoglobulin IGG 450 mg/dL (700-1600)
[2019-09-28 10:48] LABS: Immunoglobulin IGM < 25 mg/dL (40-230)
[2019-09-29 08:41] LABS: PROTEIN, TOTAL 5.5 g/dL (6.1-8.1)
[2019-09-29 14:51] LABS: KAPPA LIGHT CHAIN, FREE, SERUM 11.3 mg/L (3.3-19.4); LAMBDA LIGHT CHAIN, FREE, SERU 9.4 mg/L (5.7-26.3)
[2019-09-29 15:45] LABS: ALBUMIN 3.5 g/dL (3.8-4.8); ALPHA 1 GLOBULIN 0.4 g/dL (0.2-0.3); ALPHA 2 GLOBULIN 0.6 g/dL (0.5-0.9); BETA 1 GLOBULIN 0.4 g/dL (0.4-0.6); BETA 2 GLOBULIN 0.3 g/dL (0.2-0.5); GAMMA GLOBULIN 0.4 g/dL (0.8-1.7)
== END 2019-09-29 23:59 | disposition home or self-care (01) ==
LOC: ONCMED 06:49
PROVIDERS: PCP Family Medicine; Visit Provider Nurse Practitioner
DX: Z51.11 Encounter for antineoplastic chemotherapy (principal); C90.00 Multiple myeloma not having achieved remission; D47.2 Monoclonal gammopathy; D70.1 Agranulocytosis secondary to cancer chemotherapy; T45.1X5A Adverse effect of antineoplastic and immunosuppressive drugs, initial encounter; Z79.899 Other long term (current) drug therapy
CPT/HCPCS: 80053; 82784; 83735; 83883; 84155; 84165; 85025; 96361; 96367; 96413; 99214; J1100; J1200; J2405; J7040; J9047

== ENCOUNTER 2019-10-29 06:03 | Outpatient (RCR) | payer MEDICARE, OTHER, SELFPAY ==
[2019-09-30] MEDS: sodium chloride 0.9% 500 ML 999 ML IV (11:40)
[2019-09-30] MEDS: dexamethasone 20 MG in sodium chloride 0.9% 50 ML 188 MG IV (11:56)
[2019-10-01] MEDS: sodium chloride 0.9% 500 ML 999 ML IV (09:00)
[2019-10-01] MEDS: dexamethasone 20 MG in sodium chloride 0.9% 50 ML 188 MG IV (09:24)
--- NOTE | 2019-10-02 12:29 | ONC FU_ITS ---
Dr. Sanches Patient Follow-Up Note Patient: Nick Sheldon Unit #: [id number]: 1950 Dicatated By: Olu Sanches M.D.Date of Visit:Sep 30, 2019 Onc Med Follow-up/Prog Note Chief Complaint: Myeloma. History of Present Illness: This is a 69 year-old man with IgA lambda myeloma. He had been seen by Dr. Prado in April 2019 to establish primary care. His initial evaluation included a comprehensive metabolic profile on 04/13/2019 which showed elevated BUN and creatinine at 19 and 1.43 mg/dL and elevation of the calculated serum globulin at 4.4 g/dL. His further laboratory studies from 04/24/2019 included CBC showing hemoglobin 11.2 g with hematocrit 34%. The red cell indices were normal. The white blood cell count was 5200 and the platelet count was 185,000. His basic metabolic profile showed borderline renal function with BUN 19 and creatinine 1.46 mg/dL. Calcium was normal at 9.7 mg/dL. Protein electrophoresis showed an IgA lambda monoclonal protein which quantitated at 2.6 g/dL. A second M band measured 0.2 g/dL. The total protein was 8.0 g/dL and the albumin measured 3.8 g/dL. The quantitative immunoglobulin levels included IgA 3025 mg/dL, IgG 299 mg/dL, and IgM 14 mg/dL. The free light chain assay showed elevated lambda light chain at 39.1 mg/L with normal kappa light chain at 5.1 mg/L and decreased kappa/lambda ratio at 0.13. I had seen him initially on 05/26/2019. His further evaluation included a 24-hour urine protein electrophoresis which showed no monoclonal protein and a skeletal survey which showed no evidence for lytic bone lesions. He was then referred to [facility]. His bone marrow aspiration/biopsy His bone marrow aspiration/biopsy on 06/05/2019 showed increased lambda restricted plasma cells estimated at 60% of the overall cellularity, consistent with plasma cell neoplasm. Staging PET/CT on 06/13/2019 showed no evidence for active malignancy. He had further evaluation with MRI of the spine on 06/25/2019. The cervical spine showed some degenerative changes but no evidence for metastatic disease. There was mild heterogeneity throughout the vertebral bodies of the thoracic spine. There was no evidence for a destructive process, but involvement with myeloma was not excluded. There was also mild heterogeneity throughout the lumbar spine. Also noted was a mild [id number] pattern and there was a hypointense lesion noted along the superior endplate of the L2 vertebral body. That lesion did show enhancement and there was additional very mild enhancement involving the sacrum. Overall, the findings were suspicious for involvement with myeloma. With those findings, along with the anemia and renal impairment, he was recommended to begin treatment with carfilzomib/Revlimid/dexamethasone. He has otherwise been in excellent health. He has had no other ongoing medical illnesses. He is a non-smoker. INTERIM HISTORY: He began cycle 1 of carfilzomib/Revlimid/dexamethasone on 08/05/2019. Due to the impaired renal function, the Revlimid was administered at a reduced dosage of 15 mg daily on a 21/28-day schedule. His 1st cycle was complicated by development of skin eruption, which improved with stopping the Revlimid. However, he was able to restart the Revlimid with no recurrence of the eruption. He continued with cycle 2 on 09/02/2019. His repeat protein electrophoresis at that time showed a decrease in the M protein to 0.9 g/dL. During that cycle, the Revlimid was again put on hold at day 8 due to a decrease in the neutrophil count and the platelet count. He is seen for a follow-up visit. He has now completed 2 cycles of treatment. With both the cycles he did not receive the full dose of Revlimid, but he has nonetheless had a very good response, with the M protein decreased to 0.9 g/dL after 1 cycle and now undetectable. He is feeling good generally. He has good energy and he has normal activity. ECOG score is 0. His appetite is good. He has not had fever. He occasionally has a little bit of sweating at night. He has had no mouth sores. He has no shortness of breath, cough, or chest pain. He has no GI or complaints. He has no significant joint or bone pain. He does report occasional muscle cramping after working. He has no numbness/paresthesia or other neuropathy symptoms. Medications: Acyclovir 1 Tablet (of 400 mg) Oral daily, Aspirin 1 Tablet (of 325 mg) Oral daily, LORazepam 0.5 - 1 Tablet (of 1 mg) Oral t.i.d. PRN, Prochlorperazine Maleate 1 Tablet (of 10 mg) Oral q 4 hours PRN Allergies: No Known Allergies. Review of Systems: Constitutional - He is feeling good generally. His energy is good and he has normal activity. His appetite is good and his weight is stable. No fever. He occasionally has a little sweating at night. No hot flashes. ECOG score is 0, ENMT - No sinus congestion/drainage. No mouth sores. No sore throat or difficulty swallowing, Hematologic/Lymphatic - No abnormal bruising or bleeding, Respiratory - No shortness of breath. No cough. No pleuritic pain or hemoptysis, Cardiovascular - No angina pain. No palpitations, Gastrointestinal - No nausea or vomiting. No heartburn or acid reflux. No diarrhea or constipation. No blood in the stool or black stools, Genitourinary (M) - No dysuria or hematuria. No urinary frequency. No urgency or incontinence, Musculoskeletal - No joint or bone pain. He occasionally has muscle cramps after working, Integumentary - No skin complications, Neurologic - No headache or dizziness. No numbness or tingling. No other focal neurologic symptoms, Psychiatric - No anxiety or depression. He does not sleep well at night. Vital Signs: Performed on Sep 30, 2019 11:02 Height - 74.00 in Weight - 188.0 lbs (LOW) BSA - 2.12 sq.m BMI - 24.14 Temperature - 98.0 F (LOW) Pulse - 63 /min Respiration - 18 /min BP - 149/76 mm(hg) (HIGH) O2 Sat - 100 % Pain - 0 Physical Examination: Constitutional - He looks good generally, Eyes - Sclerae nonicteric. Conjunctivae clear, ENMT - No lesions noted in the oral cavity, Hematologic/Lymphatic - No cervical, clavicular, or axillary adenopathy, Respiratory - Lungs are clear with good air movement bilaterally, Cardiovascular - Heart rhythm is regular. There is no murmur, gallop, or rub noted, Abdomen - Soft. Liver and spleen are not enlarged. There is no abdominal mass or ascites noted and there is no inguinal adenopathy, Extremities - No edema, Integumentary - No skin eruption, Neurologic - No focal neurologic deficits noted. Lab/Imaging: CBC shows hemoglobin 11.3 g, white blood cell count 4900, and platelet count 323,000. His most recent chemistry profile showed improved renal function with BUN 17 and creatinine 1.0 mg/dL. His current protein electrophoresis shows no detectable M protein. The free light chain assay shows normal kappa/lambda ratio at 1.20. Impression: 1. Patient with IgA lambda myeloma. He had mild anemia and mild renal impairment at initial diagnosis in May 2019. Bone marrow aspiration/biopsy showed involvement with lambda restricted plasma cells, estimated at 60% of the marrow cellularity, consistent with plasma cell neoplasm. There was no evidence for lytic bone disease on a skeletal survey or PET/CT, but MRI showed subtle changes in the thoracic and lumbar spine which were suspicious for involvement with myeloma. 2. He began treatment with carfilzomib/Revlimid/dexamethasone on 08/05/2019. Due to the impaired renal function, the Revlimid was initiated at a reduced dosage of 15 mg daily on a 21/28-day schedule. During the first cycle his Revlimid was interrupted due to a skin eruption, but he was able to resume treatment with no recurrence of the eruption. During cycle 2 the Revlimid was put on hold at day 8 due to a decrease in the neutrophil count and the platelet count. The carfilzomib and dexamethasone have been continued on schedule and with no reductions. He has had a very good objective response, with the M protein now undetectable, and he is doing very well clinically. Plan: He will continue with cycle 3 of carfilzomib/Revlimid/dexamethasone with the Revlimid dosage now reduced to 10 mg daily on a 21/28-day schedule. The carfilzomib and dexamethasone dosages remain the same. He will be scheduled for a follow-up visit in 4 weeks. In the meantime, I also will be checking with [facility] regarding his follow-up schedule there. Signed By: Olu Sanches M.D. <<Signature on File>>
[2019-10-07] MEDS: dexamethasone 20 MG in sodium chloride 0.9% 50 ML 188 MG IV (09:30)
[2019-10-07] MEDS: sodium chloride 0.9% 500 ML 999 ML IV (10:02)
[2019-10-08] MEDS: sodium chloride 0.9% 500 ML 999 ML IV (09:35)
[2019-10-08] MEDS: dexamethasone 20 MG in sodium chloride 0.9% 50 ML 188 MG IV (09:58)
[2019-10-12 09:40] LABS: Basophils % 0.3 %; Eosinophils # 0.4 10^3/uL (0.0-0.8); Eosinophils % 6.9 %; Hematocrit 36.2 % (42.0-52.0); Hemoglobin 11.2 g/dL (11.7-16.6); Lymphocytes # 1.2 10^3/uL (0.8-4.8); Lymphocytes % 20.5 %; Mean Corpuscular HGB Conc 30.9 g/dL (30.0-36.0); Mean Corpuscular Hemoglobin 29.6 pg (28.0-34.0); Mean Corpuscular Volume 95.8 fL (80-94); Mean Platelet Volume 12.5 fL (7.4-10.4); Monocytes # 0.9 10^3/uL (0.2-0.9); Neutrophils # 3.06 10^3/uL (1.8-7.7); Neutrophils % 53.2 %; Nucleated Red Blood Cells # 0.1 /100WBC; Nucleated Red Blood Cells % 0.9 %; Platelet Count 115 10^3/cmm (130-400); Red Blood Count 3.78 10^6/uL (4.1-5.3); Red Cell Distribution Width 17.2 % (12.1-15.1); White Blood Count 5.8 10^3/uL (4.0-10.0)
[2019-10-12 09:59] LABS: Alanine Aminotransferase 14 U/L (0-41); Albumin Level 3.7 g/dL (3.5-5.2); Alkaline Phosphatase 101 IU/L (40-130); Anion Gap 12.8 (5-19); Aspartate Amino Transferase 11 U/L (0-40); Blood Urea Nitrogen 16 mg/dL (8-23); Calcium 8.8 mg/dL (8.5-10.5); Carbon Dioxide 25 mmol/L (22-29); Chloride 102 mmol/L (98-107); Glomerular Filtration Rate 66.2 mL/min (90-130); Glucose 108 mg/dL (65-115); Osmolality Calculated 279 mOsm/kg (285-295); Potassium 3.8 mmol/L (3.5-5.1); Sodium 136 mmol/L (136-145); Total Bilirubin 0.6 mg/dL (0.15-1.2); Total Protein 5.7 g/dL (6.6-8.7)
[2019-10-14] MEDS: dexamethasone 20 MG in sodium chloride 0.9% 50 ML 188 MG IV (09:47)
[2019-10-14] MEDS: sodium chloride 0.9% 500 ML 999 ML IV (10:03)
[2019-10-15] MEDS: sodium chloride 0.9% 500 ML 999 ML IV (09:03)
[2019-10-15] MEDS: dexamethasone 20 MG in sodium chloride 0.9% 50 ML 188 MG IV (09:20)
[2019-10-26 08:54] LABS: Basophils % 0.9 %; Eosinophils # 0.2 10^3/uL (0.0-0.8); Eosinophils % 4.1 %; Hematocrit 37.2 % (42.0-52.0); Hemoglobin 11.7 g/dL (11.7-16.6); Lymphocytes # 1.3 10^3/uL (0.8-4.8); Mean Corpuscular HGB Conc 31.5 g/dL (30.0-36.0); Mean Corpuscular Hemoglobin 30.9 pg (28.0-34.0); Mean Corpuscular Volume 98.2 fL (80-94); Mean Platelet Volume 10.1 fL (7.4-10.4); Monocytes # 0.8 10^3/uL (0.2-0.9); Neutrophils # 2.01 10^3/uL (1.8-7.7); Neutrophils % 46.3 %; Nucleated Red Blood Cells % 0 %; Platelet Count 357 10^3/cmm (130-400); Red Blood Count 3.79 10^6/uL (4.1-5.3); Red Cell Distribution Width 17.2 % (12.1-15.1); White Blood Count 4.3 10^3/uL (4.0-10.0)
[2019-10-26 09:13] LABS: Alanine Aminotransferase 13 U/L (0-41); Albumin Level 3.9 g/dL (3.5-5.2); Alkaline Phosphatase 98 IU/L (40-130); Anion Gap 11.7 (5-19); Aspartate Amino Transferase 13 U/L (0-40); Blood Urea Nitrogen 20 mg/dL (8-23); Carbon Dioxide 27 mmol/L (22-29); Chloride 103 mmol/L (98-107); Globulin 1.8 g/dL (1.3-4.6); Glomerular Filtration Rate 66.2 mL/min (90-130); Glucose 110 mg/dL (65-115); Immunoglobulin IGA 61 mg/dL (70-400); Immunoglobulin IGG 459 mg/dL (700-1600); Osmolality Calculated 283 mOsm/kg (285-295); Potassium 3.7 mmol/L (3.5-5.1); Sodium 138 mmol/L (136-145); Total Bilirubin 0.7 mg/dL (0.15-1.2); Total Protein 5.7 g/dL (6.6-8.7)
[2019-10-26 09:29] LABS: Immunoglobulin IGM < 25 mg/dL (40-230)
[2019-10-27 08:09] LABS: PROTEIN, TOTAL 5.4 g/dL (6.1-8.1)
[2019-10-27 13:26] LABS: KAPPA LIGHT CHAIN, FREE, SERUM 8.5 mg/L (3.3-19.4); KAPPA/LAMBDA LIGHT CHAINS FREE 1.15 (0.26-1.65); LAMBDA LIGHT CHAIN, FREE, SERU 7.4 mg/L (5.7-26.3)
[2019-10-27 15:20] LABS: ALBUMIN 3.6 g/dL (3.8-4.8); ALPHA 1 GLOBULIN 0.3 g/dL (0.2-0.3); ALPHA 2 GLOBULIN 0.5 g/dL (0.5-0.9); BETA 1 GLOBULIN 0.3 g/dL (0.4-0.6); BETA 2 GLOBULIN 0.3 g/dL (0.2-0.5); GAMMA GLOBULIN 0.4 g/dL (0.8-1.7)
[2019-10-28] MEDS: dexamethasone 20 MG in sodium chloride 0.9% 50 ML 187 MG IV (12:35)
[2019-10-28] MEDS: sodium chloride 0.9% 1,000 ML 800 ML IV (12:35)
[2019-10-29] MEDS: sodium chloride 0.9% 500 ML 999 ML IV (08:05)
[2019-10-29] MEDS: dexamethasone 20 MG in sodium chloride 0.9% 50 ML 187 MG IV (08:35)
--- NOTE | 2019-11-01 16:21 | ONC FU_ITS ---
[facility] Patient Note Patient: Nick Sheldon Unit #: [id number]: 1950 Dictated By: Michael LaguerreDate of Visit: Oct 28, 2019 Onc MED Follow-Up/Prog Note Chief Complaint: Myeloma. History of Present Illness: Mr Sheldon is a 69 year-old man with IgA lambda myeloma. He had been seen by Dr. Prado in April 2019 to establish primary care. His initial evaluation included a comprehensive metabolic profile on 04/13/2019 which showed elevated BUN and creatinine at 19 and 1.43 mg/dL and elevation of the calculated serum globulin at 4.4 g/dL. His further laboratory studies from 04/24/2019 included CBC showing hemoglobin 11.2 g with hematocrit 34%. The red cell indices were normal. The white blood cell count was 5200 and the platelet count was 185,000. His basic metabolic profile showed borderline renal function with BUN 19 and creatinine 1.46 mg/dL. Calcium was normal at 9.7 mg/dL. Protein electrophoresis showed an IgA lambda monoclonal protein which quantitated at 2.6 g/dL. A second M band measured 0.2 g/dL. The total protein was 8.0 g/dL and the albumin measured 3.8 g/dL. The quantitative immunoglobulin levels included IgA 3025 mg/dL, IgG 299 mg/dL, and IgM 14 mg/dL. The free light chain assay showed elevated lambda light chain at 39.1 mg/L with normal kappa light chain at 5.1 mg/L and decreased kappa/lambda ratio at 0.13. Dr Sanches had seen him initially on 05/26/2019. His further evaluation included a 24-hour urine protein electrophoresis which showed no monoclonal protein and a skeletal survey which showed no evidence for lytic bone lesions. He was then referred to [facility]. His bone marrow aspiration/biopsy His bone marrow aspiration/biopsy on 06/05/2019 showed increased lambda restricted plasma cells estimated at 60% of the overall cellularity, consistent with plasma cell neoplasm. Staging PET/CT on 06/13/2019 showed no evidence for active malignancy. He had further evaluation with MRI of the spine on 06/25/2019. The cervical spine showed some degenerative changes but no evidence for metastatic disease. There was mild heterogeneity throughout the vertebral bodies of the thoracic spine. There was no evidence for a destructive process, but involvement with myeloma was not excluded. There was also mild heterogeneity throughout the lumbar spine. Also noted was a mild [id number] pattern and there was a hypointense lesion noted along the superior endplate of the L2 vertebral body. That lesion did show enhancement and there was additional very mild enhancement involving the sacrum. Overall, the findings were suspicious for involvement with myeloma. With those findings, along with the anemia and renal impairment, it was recommended he begin treatment with carfilzomib/Revlimid/dexamethasone. He has otherwise been in excellent health. He has had no other ongoing medical illnesses. He is a non-smoker. INTERIM HISTORY: He began cycle 1 of carfilzomib/Revlimid/dexamethasone on 08/05/2019. Due to the impaired renal function, the Revlimid was administered at a reduced dosage of 15 mg daily on a 21/28-day schedule. His 1st cycle was complicated by development of skin eruption, which improved with stopping the Revlimid. However, he was able to restart the Revlimid with no recurrence of the eruption. He continued with cycle 2 on 09/02/2019. His repeat protein electrophoresis at that time showed a decrease in the M protein to 0.9 g/dL. During that cycle, the Revlimid was again put on hold at day 8 due to a decrease in the neutrophil count and the platelet count. Mr Sheldon is here today for a follow-up visit. He has now completed 3 cycles of treatment. With both these cycles he did not receive the full dose of Revlimid, but he has nonetheless had a very good response, with the M protein decreased to 0.9 g/dL after 1 cycle and now undetectable. He states overall he is doing really well. He states he was seen by Dr. Britton in [place] yesterday. He states that appointment went really well. He states he had really not consider doing this comes about to talk with Dr. Britton he thinks he will go ahead and pursue that at this time. He states the current plan of care is to finish this cycle and then go back to [facility] to begin the stem cell transplant process. He denies any new concerns. He states he feels good. 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 He is eating good. He has had no pain. He denies any neuropathy symptoms. He denies any shortness of breath orthopnea. He states his bowels and bladder are normal for him. His ECOG is 0. Past Medical History: He has had ongoing medical illnesses. Past Surgical History: Colonoscopy in 2008 Allergies: No Known Allergies. Medications: Acyclovir 1 Tablet (of 400 mg) Oral daily Aspirin 1 Tablet (of 325 mg) Oral daily LORazepam 0.5 - 1 Tablet (of 1 mg) Oral t.i.d. PRN Prochlorperazine Maleate 1 Tablet (of 10 mg) Oral q 4 hours PRN Revlimid 1 Capsule (of 10 mg) Oral daily for 21 days Family History: Mr. Sheldon's mother is alive. Mr. Sheldon's father at age 79: prostate cancer. Mr. Sheldon has 2 brothers: 2 alive. He has 1 sister who is . Father of prostate cancer at age 79. Mother is still living at age 94 and is in reasonably good health. A sister with complications of mental retardation. Two brothers are still living. One has valvular heart disease. Social History: Mr. Sheldon is and he is retired. Mr. Sheldon has never smoked. He has no history of drinking. Mr. Sheldon reports the following support systems: lives with spouse, significant other, family, or friends, lives in own house, supportive family/friends willing to assist with needs, and adequate transportation available for expected visits. His diet consists of regular meals. He indicates his activity level as: regular exercise. 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 He is a non-smoker. He does not drink alcohol. Review Of Symptoms: Constitutional Denies fevers, chills, night sweats, excessive fatigue or weight loss. Allergic/Immunologic No reactions. Rash from previous visit has resolved. Eyes Denies significant visual changes. No diplopia. No amaurosis. ENMT Denies changes in hearing, sore throat, mouth sores, difficulty or changes in swallowing ability, and/or sinus drainage. Hematologic/Lymphatic Denies easy bruising or bleeding. The patient denies any tender or palpable lymph nodes. Respiratory Denies dyspnea on exertion, chest pain, cough or hemoptysis. Denies orthopnea. Cardiovascular Denies anginal chest pain, palpitations or orthopnea. Gastrointestinal Denies nausea, vomiting, diarrhea, GI bleeding, or constipation. Denies change in bowel habits and/or stool color, no heartburn or early satiety. Genitourinary (M) Denies hematuria, dysuria, increased frequency, urgency, hesitancy or incontinence. Musculoskeletal Denies joint pain, swelling or redness. No decreased range of motion. Bilateral hand cramps / drawing up at times. He states he cannot identify a certain trigger and they do ease on their own. Integumentary Denies chronic rashes, inflammation, ulcerations or skin changes. New onset of rash/hives on chest, neck and head about 3-4 days ago. Mild itching but no exudate or signs of infection. Neurologic Denies headache, blurred vision, and no areas of focal weakness or numbness. Normal gait. No sensory problems. Psychiatric Denies insomnia, depression, daniela or mood swings. Vital Signs: Performed on Oct 28, 2019 11:50 Height - 74.00 in Weight - 183.8 lbs (LOW) BSA - 2.10 sq.m BMI - 23.60 Temperature - 97.3 F (LOW) Pulse - 89 /min Respiration - 19 /min BP - 126/62 mm(hg) O2 Sat - 97 % Pain - 0,0 - Fully active, able to carry on all predisease activities without restrictions. (ECOG) Physical Examination: Constitutional Alert, oriented, no acute distress. Skin pink, warm and dry. Head Normocephalic; atraumatic. Eyes Conjunctivae and sclerae are clear and without icterus. Pupils are reactive and equal. Neck Supple without masses or thyromegaly. No jugular venous distension. Hematologic/Lymphatic No petechiae or purpura. Respiratory Lungs are clear to auscultation without rhonchi or wheezing. Cardiovascular Regular rate and rhythm of heart without murmurs,clicks, gallops or rubs. Abdomen Non-tender, non-distended, no masses or ascites. Good bowel sounds noted in all quads. No guarding or rebound tenderness. No pulsatile masses. Back/Spine Non-tender to palpation. Extremities No visible deformities, no cyanosis, clubbing or edema. Musculoskeletal No tenderness or swelling, normal range of motion without obvious weakness. Integumentary No rashes or lesions. Neurologic No sensory or motor deficits, normal cerebellar function, normal gait. Psychiatric Alert and oriented times three. Coherent speech. Verbalizes understanding of our discussions today. Laboratory:Test performed on Oct 12, 2019 09:02 Sodium 136 mmol/L Potassium 3.8 mmol/L Chloride 102 mmol/L CO2 25 mmol/L Anion Gap 12.8 BUN 16 mg/dL Creatinine 1.1 mg/dL Cr Clearance (Est) 76.4900 mL/min eGFR 66.2 mL/min Glucose 108 mg/dL Calcium 8.8 mg/dL Protein, Total 5.7 g/dL Albumin 3.7 g/dL Globulin 2.0 g/dL Bilirubin, Total 0.6 mg/dL ALT (SGPT) 14 U/L AST (SGOT) 11 U/L Alkaline Phosphatase 101 IU/L WBC 5.8 10 3/uL RBC 3.78 10 6/uL HGB 11.2 g/dL HCT 36.2 % MCV 95.8 fL MCH 29.6 pg MCHC 30.9 g/dL RDW 17.2 % Platelet Count 115 10 3/cmm MPV 12.5 fL Neutrophils 3.06 10 3/uL Lymphocytes 1.2 10 3/uL Monocytes 0.9 10 3/uL Eosinophils 0.4 10 3/uL Basophils 0.0 10 3/uL Neutrophil % 53.2 % Lymphocyte % 20.5 % Monocyte % 16.0 % Eosinophil % 6.9 % Basophils % 0.3 % NRBC % 0.9 % Test performed on Sep 09, 2019 10:55 Magnesium 2.4 mg/dL Impression: 1. Patient with IgA lambda myeloma. He had mild anemia and mild renal impairment at initial diagnosis in May 2019. Bone marrow aspiration/biopsy showed involvement with lambda restricted plasma cells, estimated at 60% of the marrow cellularity, consistent with plasma cell neoplasm. There was no evidence for lytic bone disease on a skeletal survey or PET/CT, but MRI showed subtle changes in the thoracic and lumbar spine which were suspicious for involvement with myeloma. 2. He began treatment with carfilzomib/Revlimid/dexamethasone on 08/05/2019. Due to the impaired renal function, the Revlimid was initiated at a reduced dosage of 15 mg daily on a 21/28-day schedule. During the first cycle his Revlimid was interrupted due to a skin eruption, but he was able to resume treatment with no recurrence of the eruption. During cycle 2 the Revlimid was put on hold at day 8 due to a decrease in the neutrophil count and the platelet count. The carfilzomib and dexamethasone have been continued on schedule and with no reductions. He has had a very good objective response, with the M protein now undetectable, and he is doing very well clinically. Mr Sheldon states he was seen @ [facility] on 10/27/[address] Britton. He reports the plan of care is to complete this cycle of chemotherapy then begin the process for stem cell transplant Plan: 1. Proceed with cycle 4 day 1 & 2 Kyprolis (carfilzomib). 2. Continue Revlimid 10 mg. 3. Continue acyclovir daily for now. Bactrim DS 1 twice daily- 2 days a week for prophylaxis. 4. Labs from 10/26/2019 were reviewed in detail and discussed with Mr. Sheldon and a copy was given to him. WBC 4.3, hemoglobin 11.7, platelets 357,000, and ANC is 2000. 5. We will plan to see him back in 1 week for cycle 4 day 8 & 9 carfilzomib at which time he has been asked to have a CBC, CMP. 6. Mr. Sheldon was advised to let us know if he has fever, chills or any signs of infection. His also advised to let us know if he has any recurrent rash. 7. Mr. Sheldon has been instructed to contact us in the interim should questions or problems arise. Signed By: Michael Laguerre-JENNIFER, AONORAP Olu Sanches MD <<Signature on File>>
== END 2019-10-30 23:59 | disposition home or self-care (01) ==
LOC: ONCMED 06:03
PROVIDERS: Internal Medicine Medical Oncology; PCP Family Medicine; Visit Provider Nurse Practitioner
DX: Z51.12 Encounter for antineoplastic immunotherapy (principal); C90.00 Multiple myeloma not having achieved remission; Z79.899 Other long term (current) drug therapy
CPT/HCPCS: 80053; 82784; 83883; 84155; 84165; 85025; 96361; 96367; 96413; 99214; J1100; J1200; J2405; J7030; J7040; J9047

== ENCOUNTER 2019-11-02 08:16 | Outpatient (CLI) | payer MEDICARE, OTHER, SELFPAY ==
[2019-11-02 09:11] LABS: Basophils # 0.1 10^3/uL (0.0-0.1); Basophils % 1.4 %; Eosinophils # 0.3 10^3/uL (0.0-0.8); Eosinophils % 7.9 %; Hematocrit 35.7 % (42.0-52.0); Hemoglobin 10.9 g/dL (11.7-16.6); Lymphocytes # 0.8 10^3/uL (0.8-4.8); Lymphocytes % 18.6 %; Mean Corpuscular HGB Conc 30.5 g/dL (30.0-36.0); Mean Corpuscular Hemoglobin 30.6 pg (28.0-34.0); Mean Corpuscular Volume 100.3 fL (80-94); Mean Platelet Volume 11.1 fL (7.4-10.4); Monocytes # 0.4 10^3/uL (0.2-0.9); Monocytes % 9.7 %; Neutrophils # 2.39 10^3/uL (1.8-7.7); Nucleated Red Blood Cells # 0.1 /100WBC; Nucleated Red Blood Cells % 1.2 %; Platelet Count 167 10^3/cmm (130-400); Red Blood Count 3.56 10^6/uL (4.1-5.3); Red Cell Distribution Width 17.2 % (12.1-15.1); White Blood Count 4.3 10^3/uL (4.0-10.0)
[2019-11-02 09:16] LABS: Neutrophils % 62.4 %
[2019-11-02 09:23] LABS: Alanine Aminotransferase 12 U/L (0-41); Albumin Level 3.4 g/dL (3.5-5.2); Alkaline Phosphatase 88 IU/L (40-130); Anion Gap 11.6 (5-19); Aspartate Amino Transferase 14 U/L (0-40); Blood Urea Nitrogen 12 mg/dL (8-23); Calcium 8.6 mg/dL (8.5-10.5); Carbon Dioxide 24 mmol/L (22-29); Chloride 105 mmol/L (98-107); Globulin 1.9 g/dL (1.3-4.6); Glomerular Filtration Rate 66.2 mL/min (90-130); Glucose 107 mg/dL (65-115); Osmolality Calculated 281 mOsm/kg (285-295); Potassium 3.6 mmol/L (3.5-5.1); Sodium 137 mmol/L (136-145); Total Bilirubin 0.7 mg/dL (0.15-1.2); Total Protein 5.3 g/dL (6.6-8.7)
== END 2019-11-02 08:17 | disposition home or self-care (01) ==
PROVIDERS: PCP Family Medicine; Visit Provider Nurse Practitioner
DX: C90.00 Multiple myeloma not having achieved remission (principal); Z79.899 Other long term (current) drug therapy
CPT/HCPCS: 80053; 85025

== ENCOUNTER 2019-11-04 09:20 | Outpatient (CLI) | payer MEDICARE, OTHER, SELFPAY ==
[2019-11-04] MEDS: dexamethasone 20 MG in sodium chloride 0.9% 50 ML 188 MG IV (10:48)
[2019-11-04] MEDS: sodium chloride 0.9% 500 ML 999 ML IV (11:36)
--- NOTE | 2019-11-08 17:50 | ONC FU_ITS ---
[facility] Patient Note Patient: Nick Sheldon Unit #: [id number]: 1950 Dictated By: Michael LaguerreDate of Visit: Nov 04, 2019 Onc MED Follow-Up/Prog Note Chief Complaint: Myeloma. History of Present Illness: Mr Sheldon is a 69 year-old man with IgA lambda myeloma. He had been seen by Dr. Prado in April 2019 to establish primary care. His initial evaluation included a comprehensive metabolic profile on 04/13/2019 which showed elevated BUN and creatinine at 19 and 1.43 mg/dL and elevation of the calculated serum globulin at 4.4 g/dL. His further laboratory studies from 04/24/2019 included CBC showing hemoglobin 11.2 g with hematocrit 34%. The red cell indices were normal. The white blood cell count was 5200 and the platelet count was 185,000. His basic metabolic profile showed borderline renal function with BUN 19 and creatinine 1.46 mg/dL. Calcium was normal at 9.7 mg/dL. Protein electrophoresis showed an IgA lambda monoclonal protein which quantitated at 2.6 g/dL. A second M band measured 0.2 g/dL. The total protein was 8.0 g/dL and the albumin measured 3.8 g/dL. The quantitative immunoglobulin levels included IgA 3025 mg/dL, IgG 299 mg/dL, and IgM 14 mg/dL. The free light chain assay showed elevated lambda light chain at 39.1 mg/L with normal kappa light chain at 5.1 mg/L and decreased kappa/lambda ratio at 0.13. Dr Sanches had seen him initially on 05/26/2019. His further evaluation included a 24-hour urine protein electrophoresis which showed no monoclonal protein and a skeletal survey which showed no evidence for lytic bone lesions. He was then referred to [facility]. His bone marrow aspiration/biopsy His bone marrow aspiration/biopsy on 06/05/2019 showed increased lambda restricted plasma cells estimated at 60% of the overall cellularity, consistent with plasma cell neoplasm. Staging PET/CT on 06/13/2019 showed no evidence for active malignancy. He had further evaluation with MRI of the spine on 06/25/2019. The cervical spine showed some degenerative changes but no evidence for metastatic disease. There was mild heterogeneity throughout the vertebral bodies of the thoracic spine. There was no evidence for a destructive process, but involvement with myeloma was not excluded. There was also mild heterogeneity throughout the lumbar spine. Also noted was a mild [id number] pattern and there was a hypointense lesion noted along the superior endplate of the L2 vertebral body. That lesion did show enhancement and there was additional very mild enhancement involving the sacrum. Overall, the findings were suspicious for involvement with myeloma. With those findings, along with the anemia and renal impairment, it was recommended he begin treatment with carfilzomib/Revlimid/dexamethasone. He has otherwise been in excellent health. He has had no other ongoing medical illnesses. He is a non-smoker. INTERIM HISTORY: He began cycle 1 of carfilzomib/Revlimid/dexamethasone on 08/05/2019. Due to the impaired renal function, the Revlimid was administered at a reduced dosage of 15 mg daily on a 21/28-day schedule. His 1st cycle was complicated by development of skin eruption, which improved with stopping the Revlimid. However, he was able to restart the Revlimid with no recurrence of the eruption. He continued with cycle 2 on 09/02/2019. His repeat protein electrophoresis at that time showed a decrease in the M protein to 0.9 g/dL. During that cycle, the Revlimid was again put on hold at day 8 due to a decrease in the neutrophil count and the platelet count. Mr Sheldon is here today for a follow-up visit. He has now completed 3 cycles of treatment. With both these cycles he did not receive the full dose of Revlimid, but he has nonetheless had a very good response, with the M protein decreased to 0.9 g/dL after 1 cycle and now undetectable. He states overall he is doing really well. He states he was seen by Dr. Britton in [place] yesterday. He states that appointment went really well. He states he had really not consider doing this comes about to talk with Dr. Britton he thinks he will go ahead and pursue that at this time. He states the current plan of care is to finish this cycle and then go back to [facility] to begin the stem cell transplant process. He denies any new concerns. He states he feels good. 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 He is eating good. He has had no pain. He denies any neuropathy symptoms. He denies any shortness of breath orthopnea. He states his bowels and bladder are normal for him. His ECOG is 0. Past Medical History: He has had ongoing medical illnesses. Past Surgical History: Colonoscopy in 2008 Allergies: No Known Allergies. Medications: Acyclovir 1 Tablet (of 400 mg) Oral daily Aspirin 1 Tablet (of 325 mg) Oral daily LORazepam 0.5 - 1 Tablet (of 1 mg) Oral t.i.d. PRN Prochlorperazine Maleate 1 Tablet (of 10 mg) Oral q 4 hours PRN Revlimid 1 Capsule (of 10 mg) Oral daily for 21 days Family History: Mr. Sheldon's mother is alive. Mr. Sheldon's father at age 79: prostate cancer. Mr. Sheldon has 2 brothers: 2 alive. He has 1 sister who is . Father of prostate cancer at age 79. Mother is still living at age 94 and is in reasonably good health. A sister with complications of mental retardation. Two brothers are still living. One has valvular heart disease. Social History: Mr. Sheldon is and he is retired. Mr. Sheldon has never smoked. He has no history of drinking. Mr. Sheldon reports the following support systems: lives with spouse, significant other, family, or friends, lives in own house, supportive family/friends willing to assist with needs, and adequate transportation available for expected visits. His diet consists of regular meals. He indicates his activity level as: regular exercise. 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 He is a non-smoker. He does not drink alcohol. Review Of Symptoms: Constitutional Denies fevers, chills, night sweats, excessive fatigue or weight loss. Allergic/Immunologic No reactions. Rash from previous visit has resolved. Eyes Denies significant visual changes. No diplopia. No amaurosis. ENMT Denies changes in hearing, sore throat, mouth sores, difficulty or changes in swallowing ability, and/or sinus drainage. Hematologic/Lymphatic Denies easy bruising or bleeding. The patient denies any tender or palpable lymph nodes. Respiratory Denies dyspnea on exertion, chest pain, cough or hemoptysis. Denies orthopnea. Cardiovascular Denies anginal chest pain, palpitations or orthopnea. Gastrointestinal Denies nausea, vomiting, diarrhea, GI bleeding, or constipation. Denies change in bowel habits and/or stool color, no heartburn or early satiety. Genitourinary (M) Denies hematuria, dysuria, increased frequency, urgency, hesitancy or incontinence. Musculoskeletal Denies joint pain, swelling or redness. No decreased range of motion. Integumentary Denies chronic rashes, inflammation, ulcerations or skin changes. He states he has a rash on the inside of my legs from sweating . He has not tried anything on it. We discussed using clotrimazole twice a day. Neurologic Denies headache, blurred vision, and no areas of focal weakness or numbness. Normal gait. No sensory problems. Psychiatric Denies insomnia, depression, daniela or mood swings. Vital Signs: Performed on Nov 04, 2019 09:46 Height - 74.00 in Weight - 187.8 lbs (HIGH) BSA - 2.12 sq.m BMI - 24.11 Temperature - 97.9 F (LOW) Pulse - 68 /min Respiration - 17 /min BP - 142/70 mm(hg) (HIGH) O2 Sat - 95 % (LOW) Pain - 0,0 - Fully active, able to carry on all predisease activities without restrictions. (ECOG) Physical Examination: Constitutional Alert, oriented, no acute distress. Skin pink, warm and dry. Head Normocephalic; atraumatic. Eyes Conjunctivae and sclerae are clear and without icterus. Pupils are reactive and equal. Neck Supple without masses or thyromegaly. No jugular venous distension. Hematologic/Lymphatic No petechiae or purpura. Respiratory Lungs are clear to auscultation without rhonchi or wheezing. Cardiovascular Regular rate and rhythm of heart without murmurs,clicks, gallops or rubs. Abdomen Non-tender, non-distended, no masses or ascites. Good bowel sounds noted in all quads. No guarding or rebound tenderness. No pulsatile masses. Back/Spine Non-tender to palpation. Extremities No visible deformities, no cyanosis, clubbing or edema. Musculoskeletal No tenderness or swelling, normal range of motion without obvious weakness. Integumentary No rashes or lesions. Neurologic No sensory or motor deficits, normal cerebellar function, normal gait. Psychiatric Alert and oriented times three. Coherent speech. Verbalizes understanding of our discussions today. Laboratory:Test performed on Oct 26, 2019 08:30 Sodium 138 mmol/L Potassium 3.7 mmol/L Chloride 103 mmol/L CO2 27 mmol/L Anion Gap 11.7 BUN 20 mg/dL Creatinine 1.1 mg/dL Cr Clearance (Est) 76.4900 mL/min eGFR 66.2 mL/min Glucose 110 mg/dL Calcium 9.0 mg/dL Protein, Total 5.7 g/dL Albumin 3.9 g/dL Globulin 1.8 g/dL Bilirubin, Total 0.7 mg/dL ALT (SGPT) 13 U/L AST (SGOT) 13 U/L Alkaline Phosphatase 98 IU/L WBC 4.3 10 3/uL RBC 3.79 10 6/uL HGB 11.7 g/dL HCT 37.2 % MCV 98.2 fL MCH 30.9 pg MCHC 31.5 g/dL RDW 17.2 % Platelet Count 357 10 3/cmm MPV 10.1 fL Neutrophils 2.01 10 3/uL Lymphocytes 1.3 10 3/uL Monocytes 0.8 10 3/uL Eosinophils 0.2 10 3/uL Basophils 0.0 10 3/uL Neutrophil % 46.3 % Lymphocyte % 30.0 % Monocyte % 18.0 % Eosinophil % 4.1 % Basophils % 0.9 % NRBC % 0 % IgG 459 mg/dL IgA 61 mg/dL IgM < 25 mg/dL Impression: 1. Patient with IgA lambda myeloma. He had mild anemia and mild renal impairment at initial diagnosis in May 2019. Bone marrow aspiration/biopsy showed involvement with lambda restricted plasma cells, estimated at 60% of the marrow cellularity, consistent with plasma cell neoplasm. There was no evidence for lytic bone disease on a skeletal survey or PET/CT, but MRI showed subtle changes in the thoracic and lumbar spine which were suspicious for involvement with myeloma. 2. He began treatment with carfilzomib/Revlimid/dexamethasone on 08/05/2019. Due to the impaired renal function, the Revlimid was initiated at a reduced dosage of 15 mg daily on a 21/28-day schedule. During the first cycle his Revlimid was interrupted due to a skin eruption, but he was able to resume treatment with no recurrence of the eruption. During cycle 2 the Revlimid was put on hold at day 8 due to a decrease in the neutrophil count and the platelet count. The carfilzomib and dexamethasone have been continued on schedule and with no reductions. He has had a very good objective response, with the M protein now undetectable, and he is doing very well clinically. Mr Sheldon states he was seen @ [facility] on 10/27/[address] Britton. He reports the plan of care is to complete this cycle of chemotherapy then begin the process for stem cell transplant Plan: 1. Proceed with cycle 4 day 8 & 9 Kyprolis (carfilzomib). 2. Continue Revlimid 10 mg. 3. Continue acyclovir daily for now. Bactrim DS 1 twice daily- 2 days a week for prophylaxis. 4. Labs from 11/02/2019 were reviewed in detail and discussed with Mr. Sheldon and a copy was given to him. WBC 4.3, hemoglobin 11.7, platelets 357,000, and ANC is 2000. 5. We will plan to see him back in 1 week for cycle 4 day 15 & 16 carfilzomib at which time he has been asked to have a CBC, CMP. 6. Mr. Sheldon was advised to let us know if he has fever, chills or any signs of infection. His also advised to let us know if he has any recurrent rash-such as the rash he had previously after treatment. He andrea try the clotrimazole prn to his rash. 7. Mr. Sheldon has been instructed to contact us in the interim should questions or problems arise. Signed By: Michael Laguerre-, CNP Olu Sanches MD <<Signature on File>>
== END 2019-11-04 09:21 | disposition home or self-care (01) ==
LOC: ONCMED 09:23
PROVIDERS: PCP Family Medicine; Visit Provider Nurse Practitioner
DX: Z51.12 Encounter for antineoplastic immunotherapy (principal); C90.00 Multiple myeloma not having achieved remission; D47.2 Monoclonal gammopathy; D70.1 Agranulocytosis secondary to cancer chemotherapy; T45.1X5A Adverse effect of antineoplastic and immunosuppressive drugs, initial encounter
CPT/HCPCS: 96361; 96367; 96413; 99214; J1100; J1200; J2405; J7040; J9047

== ENCOUNTER 2019-11-05 06:07 | Outpatient (CLI) | payer MEDICARE, OTHER, SELFPAY ==
[2019-11-05] MEDS: sodium chloride 0.9% 500 ML 999 ML IV (08:35)
[2019-11-05] MEDS: dexamethasone 20 MG in sodium chloride 0.9% 50 ML 187 MG IV (09:10)
== END 2019-11-05 06:08 | disposition home or self-care (01) ==
PROVIDERS: PCP Family Medicine; Visit Provider Nurse Practitioner
DX: Z51.11 Encounter for antineoplastic chemotherapy (principal); C90.00 Multiple myeloma not having achieved remission; D47.2 Monoclonal gammopathy; D64.9 Anemia, unspecified; D70.1 Agranulocytosis secondary to cancer chemotherapy; T45.1X5A Adverse effect of antineoplastic and immunosuppressive drugs, initial encounter
CPT/HCPCS: 96361; 96367; 96413; J1100; J1200; J2405; J7040; J9047

== ENCOUNTER 2019-11-09 08:16 | Outpatient (CLI) | payer MEDICARE, OTHER, SELFPAY ==
[2019-11-09 09:12] LABS: Basophils % 0.6 %; Eosinophils # 0.5 10^3/uL (0.0-0.8); Eosinophils % 7.6 %; Hematocrit 35.1 % (42.0-52.0); Hemoglobin 10.6 g/dL (11.7-16.6); Lymphocytes % 14.2 %; Mean Corpuscular HGB Conc 30.2 g/dL (30.0-36.0); Mean Corpuscular Hemoglobin 30.5 pg (28.0-34.0); Mean Corpuscular Volume 100.9 fL (80-94); Mean Platelet Volume 13.8 fL (7.4-10.4); Monocytes # 0.9 10^3/uL (0.2-0.9); Monocytes % 12.9 %; Neutrophils # 4.24 10^3/uL (1.8-7.7); Neutrophils % 62.9 %; Nucleated Red Blood Cells % 0.4 %; Platelet Count 113 10^3/cmm (130-400); Red Blood Count 3.48 10^6/uL (4.1-5.3); Red Cell Distribution Width 16.5 % (12.1-15.1); White Blood Count 6.7 10^3/uL (4.0-10.0)
[2019-11-09 09:32] LABS: Alanine Aminotransferase 12 U/L (0-41); Albumin Level 3.5 g/dL (3.5-5.2); Alkaline Phosphatase 84 IU/L (40-130); Anion Gap 9.9 (5-19); Aspartate Amino Transferase 14 U/L (0-40); Blood Urea Nitrogen 13 mg/dL (8-23); Calcium 8.8 mg/dL (8.5-10.5); Carbon Dioxide 25 mmol/L (22-29); Chloride 105 mmol/L (98-107); Globulin 1.7 g/dL (1.3-4.6); Glomerular Filtration Rate 54.6 mL/min (90-130); Glucose 100 mg/dL (65-115); Osmolality Calculated 278 mOsm/kg (285-295); Potassium 3.9 mmol/L (3.5-5.1); Sodium 136 mmol/L (136-145); Total Bilirubin 0.6 mg/dL (0.15-1.2); Total Protein 5.2 g/dL (6.6-8.7)
== END 2019-11-09 08:17 | disposition home or self-care (01) ==
LOC: ONCMED 08:22
PROVIDERS: PCP Family Medicine; Visit Provider Internal Medicine Medical Oncology
DX: C90.00 Multiple myeloma not having achieved remission (principal); D47.2 Monoclonal gammopathy; D70.1 Agranulocytosis secondary to cancer chemotherapy; T45.1X5A Adverse effect of antineoplastic and immunosuppressive drugs, initial encounter
CPT/HCPCS: 80053; 85025

== ENCOUNTER 2019-11-11 06:08 | Outpatient (CLI) | payer MEDICARE, OTHER, SELFPAY ==
[2019-11-11] MEDS: sodium chloride 0.9% 500 ML 999 ML IV (10:20)
[2019-11-11] MEDS: dexamethasone 20 MG in sodium chloride 0.9% 50 ML 187 MG IV (10:35)
--- NOTE | 2019-11-12 12:57 | ONC FU_ITS ---
[facility] Patient Note Patient: Nick Sheldon Unit #: [id number]: 1950 Dictated By: Michael LaguerreDate of Visit: Nov 11, 2019 Onc MED Follow-Up/Prog Note Chief Complaint: Myeloma. History of Present Illness: Mr Sheldon is a 69 year-old man with IgA lambda myeloma. He had been seen by Dr. Prado in April 2019 to establish primary care. His initial evaluation included a comprehensive metabolic profile on 04/13/2019 which showed elevated BUN and creatinine at 19 and 1.43 mg/dL and elevation of the calculated serum globulin at 4.4 g/dL. His further laboratory studies from 04/24/2019 included CBC showing hemoglobin 11.2 g with hematocrit 34%. The red cell indices were normal. The white blood cell count was 5200 and the platelet count was 185,000. His basic metabolic profile showed borderline renal function with BUN 19 and creatinine 1.46 mg/dL. Calcium was normal at 9.7 mg/dL. Protein electrophoresis showed an IgA lambda monoclonal protein which quantitated at 2.6 g/dL. A second M band measured 0.2 g/dL. The total protein was 8.0 g/dL and the albumin measured 3.8 g/dL. The quantitative immunoglobulin levels included IgA 3025 mg/dL, IgG 299 mg/dL, and IgM 14 mg/dL. The free light chain assay showed elevated lambda light chain at 39.1 mg/L with normal kappa light chain at 5.1 mg/L and decreased kappa/lambda ratio at 0.13. Dr Sanches had seen him initially on 05/26/2019. His further evaluation included a 24-hour urine protein electrophoresis which showed no monoclonal protein and a skeletal survey which showed no evidence for lytic bone lesions. He was then referred to [facility]. His bone marrow aspiration/biopsy His bone marrow aspiration/biopsy on 06/05/2019 showed increased lambda restricted plasma cells estimated at 60% of the overall cellularity, consistent with plasma cell neoplasm. Staging PET/CT on 06/13/2019 showed no evidence for active malignancy. He had further evaluation with MRI of the spine on 06/25/2019. The cervical spine showed some degenerative changes but no evidence for metastatic disease. There was mild heterogeneity throughout the vertebral bodies of the thoracic spine. There was no evidence for a destructive process, but involvement with myeloma was not excluded. There was also mild heterogeneity throughout the lumbar spine. Also noted was a mild dwrf-iwg-oeluzq pattern and there was a hypointense lesion noted along the superior endplate of the L2 vertebral body. That lesion did show enhancement and there was additional very mild enhancement involving the sacrum. Overall, the findings were suspicious for involvement with myeloma. With those findings, along with the anemia and renal impairment, it was recommended he begin treatment with carfilzomib/Revlimid/dexamethasone. He has otherwise been in excellent health. He has had no other ongoing medical illnesses. He is a non-smoker. INTERIM HISTORY: He began cycle 1 of carfilzomib/Revlimid/dexamethasone on 08/05/2019. Due to the impaired renal function, the Revlimid was administered at a reduced dosage of 15 mg daily on a 21/28-day schedule. His 1st cycle was complicated by development of skin eruption, which improved with stopping the Revlimid. However, he was able to restart the Revlimid with no recurrence of the eruption. He continued with cycle 2 on 09/02/2019. His repeat protein electrophoresis at that time showed a decrease in the M protein to 0.9 g/dL. During that cycle, the Revlimid was again put on hold at day 8 due to a decrease in the neutrophil count and the platelet count. Mr Sheldon is here today for a follow-up visit. He has now completed 3 full cycles of treatment. With both these cycles he did not receive the full dose of Revlimid, but he has nonetheless had a very good response, with the M protein decreased to 0.9 g/dL after 1 cycle and now undetectable. He is due for cycle 5 day 15 & 16. He states overall he is doing really well. He states he is scheduled to stop his Revlimid on 11/17/2019 and then he goes to [facility] for stem cell collection on 12/11/2019. He denies any new concerns. He states he feels good. 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 He is eating good. He has had no pain. He denies any neuropathy symptoms. He denies any shortness of breath orthopnea. He states his bowels and bladder are normal for him. His ECOG is 0. Past Medical History: He has had ongoing medical illnesses. Past Surgical History: Colonoscopy in 2008 Allergies: No Known Allergies. Medications: Acyclovir 1 Tablet (of 400 mg) Oral daily Aspirin 1 Tablet (of 325 mg) Oral daily LORazepam 0.5 - 1 Tablet (of 1 mg) Oral t.i.d. PRN Prochlorperazine Maleate 1 Tablet (of 10 mg) Oral q 4 hours PRN Revlimid 1 Capsule (of 10 mg) Oral daily for 21 days Family History: Mr. Sheldon's mother is alive. Mr. Sheldon's father at age 79: prostate cancer. Mr. Sheldon has 2 brothers: 2 alive. He has 1 sister who is . Father of prostate cancer at age 79. Mother is still living at age 94 and is in reasonably good health. A sister with complications of mental retardation. Two brothers are still living. One has valvular heart disease. Social History: Mr. Sheldon is and he is retired. Mr. Sheldon has never smoked. He has no history of drinking. Mr. Sheldon reports the following support systems: lives with spouse, significant other, family, or friends, lives in own house, supportive family/friends willing to assist with needs, and adequate transportation available for expected visits. His diet consists of regular meals. He indicates his activity level as: regular exercise. 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 He is a non-smoker. He does not drink alcohol. Review Of Symptoms: Constitutional Denies fevers, chills, night sweats, excessive fatigue or weight loss. Allergic/Immunologic No reactions. Rash from previous visit has resolved. Eyes Denies significant visual changes. No diplopia. No amaurosis. ENMT Denies changes in hearing, sore throat, mouth sores, difficulty or changes in swallowing ability, and/or sinus drainage. Hematologic/Lymphatic Denies easy bruising or bleeding. The patient denies any tender or palpable lymph nodes. Respiratory Denies dyspnea on exertion, chest pain, cough or hemoptysis. Denies orthopnea. Cardiovascular Denies anginal chest pain, palpitations or orthopnea. Gastrointestinal Denies nausea, vomiting, diarrhea, GI bleeding, or constipation. Denies change in bowel habits and/or stool color, no heartburn or early satiety. Genitourinary (M) Denies hematuria, dysuria, increased frequency, urgency, hesitancy or incontinence. Musculoskeletal Denies joint pain, swelling or redness. No decreased range of motion. Integumentary Denies chronic rashes, inflammation, ulcerations or skin changes. He states he has a rash on the inside of my legs from sweating . He has not tried anything on it. We discussed using clotrimazole twice a day. Neurologic Denies headache, blurred vision, and no areas of focal weakness or numbness. Normal gait. No sensory problems. Psychiatric Denies insomnia, depression, daniela or mood swings. Vital Signs: Performed on Nov 11, 2019 09:33 Height - 74.00 in Weight - 187.8 lbs BSA - 2.12 sq.m BMI - 24.11 Temperature - 97.3 F (LOW) Pulse - 68 /min Respiration - 16 /min BP - 150/79 mm(hg) (HIGH) O2 Sat - 96 % Pain - 0,0 - Fully active, able to carry on all predisease activities without restrictions. (ECOG) Physical Examination: Constitutional Alert, oriented, no acute distress. Skin pink, warm and dry. Head Normocephalic; atraumatic. Eyes Conjunctivae and sclerae are clear and without icterus. Pupils are reactive and equal. Neck Supple without masses or thyromegaly. No jugular venous distension. Hematologic/Lymphatic No petechiae or purpura. Respiratory Lungs are clear to auscultation without rhonchi or wheezing. Cardiovascular Regular rate and rhythm of heart without murmurs,clicks, gallops or rubs. Abdomen Non-tender, non-distended, no masses or ascites. Good bowel sounds noted in all quads. No guarding or rebound tenderness. No pulsatile masses. Back/Spine Non-tender to palpation. Extremities No visible deformities, no cyanosis, clubbing or edema. Musculoskeletal No tenderness or swelling, normal range of motion without obvious weakness. Integumentary No rashes or lesions. Neurologic No sensory or motor deficits, normal cerebellar function, normal gait. Psychiatric Alert and oriented times three. Coherent speech. Verbalizes understanding of our discussions today. Laboratory:Test performed on Oct 26, 2019 08:30 Sodium 138 mmol/L Potassium 3.7 mmol/L Chloride 103 mmol/L CO2 27 mmol/L Anion Gap 11.7 BUN 20 mg/dL Creatinine 1.1 mg/dL Cr Clearance (Est) 76.4900 mL/min eGFR 66.2 mL/min Glucose 110 mg/dL Calcium 9.0 mg/dL Protein, Total 5.7 g/dL Albumin 3.9 g/dL Globulin 1.8 g/dL Bilirubin, Total 0.7 mg/dL ALT (SGPT) 13 U/L AST (SGOT) 13 U/L Alkaline Phosphatase 98 IU/L WBC 4.3 10 3/uL RBC 3.79 10 6/uL HGB 11.7 g/dL HCT 37.2 % MCV 98.2 fL MCH 30.9 pg MCHC 31.5 g/dL RDW 17.2 % Platelet Count 357 10 3/cmm MPV 10.1 fL Neutrophils 2.01 10 3/uL Lymphocytes 1.3 10 3/uL Monocytes 0.8 10 3/uL Eosinophils 0.2 10 3/uL Basophils 0.0 10 3/uL Neutrophil % 46.3 % Lymphocyte % 30.0 % Monocyte % 18.0 % Eosinophil % 4.1 % Basophils % 0.9 % NRBC % 0 % IgG 459 mg/dL IgA 61 mg/dL IgM < 25 mg/dL Test performed on Sep 09, 2019 10:55 Magnesium 2.4 mg/dL Impression: 1. Patient with IgA lambda myeloma. He had mild anemia and mild renal impairment at initial diagnosis in May 2019. Bone marrow aspiration/biopsy showed involvement with lambda restricted plasma cells, estimated at 60% of the marrow cellularity, consistent with plasma cell neoplasm. There was no evidence for lytic bone disease on a skeletal survey or PET/CT, but MRI showed subtle changes in the thoracic and lumbar spine which were suspicious for involvement with myeloma. 2. He began treatment with carfilzomib/Revlimid/dexamethasone on 08/05/2019. Due to the impaired renal function, the Revlimid was initiated at a reduced dosage of 15 mg daily on a 21/28-day schedule. During the first cycle his Revlimid was interrupted due to a skin eruption, but he was able to resume treatment with no recurrence of the eruption. During cycle 2 the Revlimid was put on hold at day 8 due to a decrease in the neutrophil count and the platelet count. The carfilzomib and dexamethasone have been continued on schedule and with no reductions. He has had a very good objective response, with the M protein now undetectable, and he is doing very well clinically. Mr Sheldon states he was seen @ [facility] on 10/27/[address] Britton. He reports the plan of care is to complete this cycle of chemotherapy then begin the process for stem cell transplant. Dr Britton's office have given him instructions to stop his Revlimid on 11/17/2019 and he returns there on 12/11/2019. Plan: 1. Proceed with cycle 4 day 15 & 16 Kyprolis (carfilzomib). 2. Continue Revlimid 10 mg. 3. Continue acyclovir daily for now. Bactrim DS 1 twice daily- 2 days a week for prophylaxis. 4. Labs from 11/09/2019 were reviewed in detail and discussed with Mr. Sheldon and a copy was given to him. WBC 6.7, hemoglobin 10.6, platelets 113,000, and ANC is 4200. 5. We will plan to have him return in 1 week for a CBC, due to today's platelet count of 113,000. 6. Otherwise we will plan to see him as needed until after his transplant at [place] and then we will followup as per protocol. 7. Mr. Sheldon has been instructed to contact us in the interim should questions or problems arise. Signed By: Michael Laguerre-, [facility] Olu Sanches MD <<Signature on File>>
== END 2019-11-11 06:09 | disposition home or self-care (01) ==
PROVIDERS: PCP Family Medicine; Visit Provider Nurse Practitioner
DX: Z51.11 Encounter for antineoplastic chemotherapy (principal); C90.00 Multiple myeloma not having achieved remission; Z51.81 Encounter for therapeutic drug level monitoring; Z79.899 Other long term (current) drug therapy; Z79.82 Long term (current) use of aspirin; Z79.2 Long term (current) use of antibiotics
CPT/HCPCS: 96361; 96367; 96413; 99214; J1100; J2405; J7040; J9047

== ENCOUNTER 2019-11-12 06:24 | Outpatient (CLI) | payer MEDICARE, OTHER, SELFPAY ==
[2019-11-12] MEDS: dexamethasone 20 MG in sodium chloride 0.9% 50 ML 187 MG IV (08:44)
[2019-11-12] MEDS: sodium chloride 0.9% 1,000 ML 999 ML IV (09:00)
== END 2019-11-12 06:25 | disposition home or self-care (01) ==
LOC: ONCMED 06:25
PROVIDERS: PCP Family Medicine; Visit Provider Internal Medicine Medical Oncology
DX: Z51.11 Encounter for antineoplastic chemotherapy (principal); C90.00 Multiple myeloma not having achieved remission; D70.1 Agranulocytosis secondary to cancer chemotherapy; D47.2 Monoclonal gammopathy; D64.9 Anemia, unspecified
CPT/HCPCS: 96361; 96367; 96413; J1100; J1200; J2405; J7030; J9047

== ENCOUNTER 2019-11-18 08:15 | Outpatient (CLI) | payer MEDICARE, OTHER, SELFPAY ==
[2019-11-18 08:36] LABS: Basophils % 0.6 %; Eosinophils # 0.6 10^3/uL (0.0-0.8); Eosinophils % 11.9 %; Hematocrit 36.5 % (42.0-52.0); Hemoglobin 11.2 g/dL (11.7-16.6); Lymphocytes # 1.2 10^3/uL (0.8-4.8); Lymphocytes % 24.3 %; Mean Corpuscular HGB Conc 30.7 g/dL (30.0-36.0); Mean Corpuscular Hemoglobin 31.2 pg (28.0-34.0); Mean Corpuscular Volume 101.7 fL (80-94); Monocytes # 0.8 10^3/uL (0.2-0.9); Monocytes % 16.1 %; Neutrophils # 2.26 10^3/uL (1.8-7.7); Neutrophils % 44.9 %; Nucleated Red Blood Cells % 0 %; Platelet Count 146 10^3/cmm (130-400); Red Blood Count 3.59 10^6/uL (4.1-5.3)
[2019-11-18 09:02] LABS: Alanine Aminotransferase 13 U/L (0-41); Albumin Level 3.5 g/dL (3.5-5.2); Alkaline Phosphatase 85 IU/L (40-130); Anion Gap 11.7 (5-19); Aspartate Amino Transferase 11 U/L (0-40); Blood Urea Nitrogen 15 mg/dL (8-23); Calcium 8.3 mg/dL (8.5-10.5); Carbon Dioxide 26 mmol/L (22-29); Chloride 104 mmol/L (98-107); Globulin 2.1 g/dL (1.3-4.6); Glomerular Filtration Rate 73.9 mL/min (90-130); Glucose 110 mg/dL (65-115); Osmolality Calculated 283 mOsm/kg (285-295); Potassium 3.7 mmol/L (3.5-5.1); Sodium 138 mmol/L (136-145); Total Bilirubin 0.6 mg/dL (0.15-1.2); Total Protein 5.6 g/dL (6.6-8.7)
== END 2019-11-18 08:16 | disposition home or self-care (01) ==
LOC: ONCMED 08:20
PROVIDERS: PCP Family Medicine; Visit Provider Nurse Practitioner
DX: C90.00 Multiple myeloma not having achieved remission (principal); D47.2 Monoclonal gammopathy; D70.1 Agranulocytosis secondary to cancer chemotherapy; T45.1X5A Adverse effect of antineoplastic and immunosuppressive drugs, initial encounter
CPT/HCPCS: 80053; 85025

== ENCOUNTER → 2019-12-17 17:07 | Outpatient (BNVA) | payer MEDICARE, OTHER, SELFPAY | PROVIDERS: PCP Family Medicine; Visit Provider Internal Medicine Medical Oncology | DX: Z11.59 Encounter for screening for other viral diseases (principal) | CPT/HCPCS: 87635 ==

== ENCOUNTER 2020-02-09 08:17 | Outpatient (CLI) | payer MEDICARE, OTHER, SELFPAY ==
[2020-02-09 08:58] LABS: Basophils # 0.1 10^3/uL (0.0-0.1); Basophils % 0.8 %; Eosinophils # 1.7 10^3/uL (0.0-0.8); Eosinophils % 19.5 %; Hemoglobin 11.1 g/dL (11.7-16.6); Lymphocytes # 2.7 10^3/uL (0.8-4.8); Lymphocytes % 31.1 %; Mean Corpuscular HGB Conc 32.6 g/dL (30.0-36.0); Mean Corpuscular Hemoglobin 30.2 pg (28.0-34.0); Mean Corpuscular Volume 92.4 fL (80-94); Mean Platelet Volume 9.8 fL (7.4-10.4); Monocytes # 1.1 10^3/uL (0.2-0.9); Monocytes % 12.5 %; Neutrophils # 3.06 10^3/uL (1.8-7.7); Neutrophils % 35.4 %; Nucleated Red Blood Cells % 0 %; Platelet Count 227 10^3/cmm (130-400); Red Blood Count 3.68 10^6/uL (4.1-5.3); Red Cell Distribution Width 15.9 % (12.1-15.1); White Blood Count 8.6 10^3/uL (4.0-10.0)
[2020-02-09 09:19] LABS: Alanine Aminotransferase 10 U/L (0-41); Albumin Level 3.6 g/dL (3.5-5.2); Alkaline Phosphatase 91 IU/L (40-130); Anion Gap 14.1 (5-19); Aspartate Amino Transferase 18 U/L (0-40); Blood Urea Nitrogen 14 mg/dL (8-23); Calcium 9.2 mg/dL (8.5-10.5); Carbon Dioxide 26 mmol/L (22-29); Chloride 102 mmol/L (98-107); Globulin 3.6 g/dL (1.3-4.6); Glomerular Filtration Rate 66.2 mL/min (90-130); Glucose 92 mg/dL (65-115); Osmolality Calculated 286 mOsm/kg (285-295); Potassium 4.1 mmol/L (3.5-5.1); Sodium 138 mmol/L (136-145); Total Bilirubin 0.3 mg/dL (0.15-1.2); Total Protein 7.2 g/dL (6.6-8.7)
== END 2020-02-09 08:18 | disposition home or self-care (01) ==
LOC: ONCMED 08:19
PROVIDERS: PCP Family Medicine; Visit Provider Internal Medicine Medical Oncology
DX: C90.00 Multiple myeloma not having achieved remission (principal); D47.2 Monoclonal gammopathy; D70.1 Agranulocytosis secondary to cancer chemotherapy; T45.1X5A Adverse effect of antineoplastic and immunosuppressive drugs, initial encounter
CPT/HCPCS: 36415; 80053; 85025

== ENCOUNTER 2020-02-23 12:28 | Outpatient (CLI) | payer MEDICARE, OTHER, SELFPAY ==
[2020-02-23 14:01] LABS: Basophils # 0.1 10^3/uL (0.0-0.1); Basophils % 0.7 %; Eosinophils # 1.8 10^3/uL (0.0-0.8); Eosinophils % 23.9 %; Hematocrit 33.9 % (42.0-52.0); Hemoglobin 10.7 g/dL (11.7-16.6); Lymphocytes # 2.1 10^3/uL (0.8-4.8); Lymphocytes % 28.1 %; Mean Corpuscular HGB Conc 31.6 g/dL (30.0-36.0); Mean Corpuscular Hemoglobin 29.6 pg (28.0-34.0); Mean Corpuscular Volume 93.6 fL (80-94); Mean Platelet Volume 10.5 fL (7.4-10.4); Monocytes # 0.8 10^3/uL (0.2-0.9); Monocytes % 10.4 %; Neutrophils # 2.78 10^3/uL (1.8-7.7); Neutrophils % 36.6 %; Nucleated Red Blood Cells % 0 %; Platelet Count 166 10^3/cmm (130-400); Red Blood Count 3.62 10^6/uL (4.1-5.3); Red Cell Distribution Width 16.4 % (12.1-15.1); White Blood Count 7.6 10^3/uL (4.0-10.0)
[2020-02-23 14:30] LABS: Alanine Aminotransferase 18 U/L (0-41); Albumin Level 3.7 g/dL (3.5-5.2); Alkaline Phosphatase 99 IU/L (40-130); Anion Gap 12.8 (5-19); Aspartate Amino Transferase 17 U/L (0-40); Blood Urea Nitrogen 18 mg/dL (8-23); Calcium 9.3 mg/dL (8.5-10.5); Carbon Dioxide 29 mmol/L (22-29); Chloride 103 mmol/L (98-107); Glomerular Filtration Rate 59.9 mL/min (90-130); Glucose 108 mg/dL (65-115); Osmolality Calculated 294 mOsm/kg (285-295); Potassium 3.8 mmol/L (3.5-5.1); Sodium 141 mmol/L (136-145); Total Bilirubin 0.3 mg/dL (0.15-1.2); Total Protein 6.7 g/dL (6.6-8.7)
== END 2020-02-23 12:29 | disposition home or self-care (01) ==
LOC: ONCMED 12:30
PROVIDERS: PCP Family Medicine; Visit Provider Internal Medicine Medical Oncology
DX: C90.00 Multiple myeloma not having achieved remission (principal)
CPT/HCPCS: 36415; 80053; 85025; 86850; 86900

== ENCOUNTER 2020-03-07 06:01 | Outpatient (CLI) | payer MEDICARE, OTHER, SELFPAY ==
[2020-03-07 10:11] LABS: Basophils % 0.4 %; Eosinophils # 1.1 10^3/uL (0.0-0.8); Eosinophils % 20.8 %; Hemoglobin 11.6 g/dL (11.7-16.6); Lymphocytes # 1.9 10^3/uL (0.8-4.8); Lymphocytes % 34.4 %; Mean Corpuscular HGB Conc 32.2 g/dL (30.0-36.0); Mean Corpuscular Hemoglobin 29.5 pg (28.0-34.0); Mean Corpuscular Volume 91.6 fL (80-94); Mean Platelet Volume 10.1 fL (7.4-10.4); Monocytes # 0.6 10^3/uL (0.2-0.9); Monocytes % 10.9 %; Neutrophils # 1.83 10^3/uL (1.8-7.7); Neutrophils % 33.3 %; Nucleated Red Blood Cells % 0 %; Platelet Count 156 10^3/cmm (130-400); Red Blood Count 3.93 10^6/uL (4.1-5.3); Red Cell Distribution Width 16.8 % (12.1-15.1); White Blood Count 5.5 10^3/uL (4.0-10.0)
[2020-03-07 10:30] LABS: Alanine Aminotransferase 15 U/L (0-41); Albumin Level 3.7 g/dL (3.5-5.2); Alkaline Phosphatase 91 IU/L (40-130); Anion Gap 12.2 (5-19); Aspartate Amino Transferase 16 U/L (0-40); Blood Urea Nitrogen 16 mg/dL (8-23); Calcium 9.5 mg/dL (8.5-10.5); Carbon Dioxide 27 mmol/L (22-29); Chloride 102 mmol/L (98-107); Glomerular Filtration Rate 59.9 mL/min (90-130); Glucose 111 mg/dL (65-115); Osmolality Calculated 286 mOsm/kg (285-295); Potassium 4.2 mmol/L (3.5-5.1); Sodium 137 mmol/L (136-145); Total Bilirubin 0.3 mg/dL (0.15-1.2); Total Protein 6.7 g/dL (6.6-8.7)
== END 2020-03-07 06:02 | disposition home or self-care (01) ==
LOC: ONCMED 06:03
PROVIDERS: PCP Family Medicine; Visit Provider Internal Medicine Medical Oncology
DX: C90.00 Multiple myeloma not having achieved remission (principal); D47.2 Monoclonal gammopathy; D70.1 Agranulocytosis secondary to cancer chemotherapy; T45.1X5A Adverse effect of antineoplastic and immunosuppressive drugs, initial encounter
CPT/HCPCS: 36415; 80053; 85025

== ENCOUNTER 2020-03-08 05:33 | Outpatient (CLI) | payer MEDICARE, OTHER, SELFPAY ==
--- NOTE | 2020-03-11 14:45 | ONC FU_ITS ---
Dr. Sanches Patient Follow-Up Note Patient: Nick Sheldon Unit #: [id number]: 1950 Dicatated By: Olu Sanches M.D.Date of Visit:Mar 08, 2020 Onc Med Follow-up/Prog Note Chief Complaint: Myeloma. History of Present Illness: This is a 69 year-old man with IgA lambda myeloma. He had been seen by Dr. Prado in April 2019 to establish primary care. His initial evaluation included a comprehensive metabolic profile on 04/13/2019 which showed elevated BUN and creatinine at 19 and 1.43 mg/dL and elevation of the calculated serum globulin at 4.4 g/dL. His further laboratory studies from 04/24/2019 included CBC showing hemoglobin 11.2 g with hematocrit 34%. The red cell indices were normal. The white blood cell count was 5200 and the platelet count was 185,000. His basic metabolic profile showed borderline renal function with BUN 19 and creatinine 1.46 mg/dL. Calcium was normal at 9.7 mg/dL. Protein electrophoresis showed an IgA lambda monoclonal protein which quantitated at 2.6 g/dL. A second M band measured 0.2 g/dL. The total protein was 8.0 g/dL and the albumin measured 3.8 g/dL. The quantitative immunoglobulin levels included IgA 3025 mg/dL, IgG 299 mg/dL, and IgM 14 mg/dL. The free light chain assay showed elevated lambda light chain at 39.1 mg/L with normal kappa light chain at 5.1 mg/L and decreased kappa/lambda ratio at 0.13. I had seen him initially on 05/26/2019. His further evaluation included a 24-hour urine protein electrophoresis which showed no monoclonal protein and a skeletal survey which showed no evidence for lytic bone lesions. He was then referred to [facility]. His bone marrow aspiration/biopsy His bone marrow aspiration/biopsy on 06/05/2019 showed increased lambda restricted plasma cells estimated at 60% of the overall cellularity, consistent with plasma cell neoplasm. Staging PET/CT on 06/13/2019 showed no evidence for active malignancy. He had further evaluation with MRI of the spine on 06/25/2019. The cervical spine showed some degenerative changes but no evidence for metastatic disease. There was mild heterogeneity throughout the vertebral bodies of the thoracic spine. There was no evidence for a destructive process, but involvement with myeloma was not excluded. There was also mild heterogeneity throughout the lumbar spine. Also noted was a mild elbi-xbc-[id number] pattern and there was a hypointense lesion noted along the superior endplate of the L2 vertebral body. That lesion did show enhancement and there was additional very mild enhancement involving the sacrum. Overall, the findings were suspicious for involvement with myeloma. With those findings, along with the anemia and renal impairment, he was recommended to begin treatment with carfilzomib/Revlimid/dexamethasone. He has otherwise been in excellent health. He has had no other ongoing medical illnesses. He is a non-smoker. INTERIM HISTORY: He began cycle 1 of carfilzomib/Revlimid/dexamethasone on 08/05/2019. Due to the impaired renal function, the Revlimid was administered at a reduced dosage of 15 mg daily on a 21/28-day schedule. His 1st cycle was complicated by development of skin eruption, which improved with stopping the Revlimid. However, he was able to restart the Revlimid with no recurrence of the eruption. He continued with cycle 2 on 09/02/2019. His repeat protein electrophoresis at that time showed a decrease in the M protein to 0.9 g/dL. During that cycle, the Revlimid was again put on hold at day 8 due to a decrease in the neutrophil count and the platelet count. He continued with cycle 3 on 09/30/2019 and with cycle 4 on 10/28/2019. On his repeat protein electrophoresis studies prior to starting cycle 4 his M protein was undetectable. His IgA level had decreased to 61 mg/dL. He then underwent high-dose melphalan/autologous stem cell transplant at [facility] on 12/24/2019. At his day 34 follow-up at [facility] on 01/26/2020 he appeared to be recovering well. He is seen for a follow-up visit. He has been feeling pretty good generally. He was pretty weak after the transplant, as expected, but his energy is getting better. He is doing light work now. His ECOG score is 1. He has good appetite. He had lost about 12 pounds following the transplant, but he is regaining that weight now. He does not have fever or night sweats. He had developed a skin eruption, which has improved, but he does complain that his skin is still dry and itchy. He has had no mouth sores. He has no shortness of breath, cough, or chest pain. He has no GI or complaints. He has no significant joint or bone pain. He does not complain of headache or dizziness, and he has no focal neurologic symptoms. Medications: Acyclovir 1 Tablet (of 400 mg) Oral t.i.d., LORazepam 0.5 - 1 Tablet (of 1 mg) Oral t.i.d. PRN, Prochlorperazine Maleate 1 Tablet (of 10 mg) Oral q 4 hours PRN Allergies: No Known Allergies. Review of Systems: Constitutional - His energy has been getting better and is now pretty good. He is able to do light work. He has good appetite. He had lost 12 pounds after the transplant, but he is regaining that now. He has no fever or night sweats. ECOG score is 1, ENMT - He sometimes has a drippy nose. No mouth sores. No sore throat or difficulty swallowing, Hematologic/Lymphatic - No abnormal bruising or bleeding, Respiratory - No shortness of breath. No cough. No pleuritic pain or hemoptysis, Cardiovascular - No angina pain. No palpitations, Gastrointestinal - No nausea or vomiting. No heartburn or acid reflux. No diarrhea or constipation. No blood in the stool or black stools, Genitourinary (M) - No dysuria or hematuria. No urinary frequency. No urgency or incontinence, Musculoskeletal - No joint or bone pain, Integumentary - He had a significant skin eruption. It is getting better, but his skin is still dry and itchy, Neurologic - No headache or dizziness. No numbness or tingling. No other focal neurologic symptoms, Psychiatric - No anxiety or depression. No insomnia. Vital Signs: Performed on Mar 08, 2020 13:51 Height - 74.00 in Weight - 179.0 lbs (LOW) BSA - 2.07 sq.m BMI - 22.98 Temperature - 97.9 F (LOW) Pulse - 87 /min Respiration - 16 /min BP - 153/74 mm(hg) (HIGH) O2 Sat - 98 % Pain - 0 Physical Examination: Constitutional - He appears somewhat weak generally, but not acutely ill, Eyes - Sclerae nonicteric. Conjunctivae clear, ENMT - No lesions noted in the oral cavity, Hematologic/Lymphatic - No cervical, clavicular, or axillary adenopathy, Respiratory - Lungs are clear with good air movement bilaterally, Cardiovascular - Heart rhythm is regular. There is no murmur, gallop, or rub noted, Abdomen - Soft. Liver and spleen are not enlarged. There is no abdominal mass or ascites noted and there is no inguinal adenopathy, Extremities - No edema, Integumentary - There is currently no skin eruption, Neurologic - No focal neurologic deficits noted. Lab/Imaging: Test performed on Feb 23, 2020 13:40 Sodium 141 mmol/L Potassium 3.8 mmol/L Chloride 103 mmol/L CO2 29 mmol/L Anion Gap 12.8 BUN 18 mg/dL Creatinine 1.2 mg/dL Cr Clearance (Est) 70.1200 mL/min eGFR 59.9 mL/min Glucose 108 mg/dL Osmolality - Calculated 294 mOsm/kg Calcium 9.3 mg/dL Protein, Total 6.7 g/dL Albumin 3.7 g/dL Globulin 3.0 g/dL Bilirubin, Total 0.3 mg/dL ALT (SGPT) 18 U/L AST (SGOT) 17 U/L Alkaline Phosphatase 99 IU/L WBC 7.6 10 3/uL RBC 3.62 10 6/uL HGB 10.7 g/dL HCT 33.9 % MCV 93.6 fL MCH 29.6 pg MCHC 31.6 g/dL RDW 16.4 % Platelet Count 166 10 3/cmm MPV 10.5 fL Neutrophils 2.78 10 3/uL Lymphocytes 2.1 10 3/uL Monocytes 0.8 10 3/uL Eosinophils 1.8 10 3/uL Basophils 0.1 10 3/uL Neutrophil % 36.6 % Lymphocyte % 28.1 % Monocyte % 10.4 % Eosinophil % 23.9 % Basophils % 0.7 % NRBC % 0 % Anti-D Positive Blood Type OP Antibody Screen (Gel) NEGATIVE Impression: 1. Patient with IgA lambda myeloma. He had mild anemia and mild renal impairment at initial diagnosis in May 2019. Bone marrow aspiration/biopsy showed involvement with lambda restricted plasma cells, estimated at 60% of the marrow cellularity, consistent with plasma cell neoplasm. There was no evidence for lytic bone disease on a skeletal survey or PET/CT, but MRI showed subtle changes in the thoracic and lumbar spine which were suspicious for involvement with myeloma. 2. He began treatment with carfilzomib/Revlimid/dexamethasone on 08/05/2019. Due to the impaired renal function, the Revlimid was initiated at a reduced dosage of 15 mg daily on a 21/28-day schedule. During the first cycle his Revlimid was interrupted due to a skin eruption, but he was able to resume treatment with no recurrence of the eruption. During cycle 2 the Revlimid was put on hold at day 8 due to a decrease in the neutrophil count and the platelet count. The carfilzomib and dexamethasone were given on schedule and with no reductions. He then continued with cycle 3 on 09/30/2019 and with cycle 4 on 10/28/2019. He had a very good response to the treatment with his repeat protein electrophoresis at that point showing no detectable monoclonal protein and with his IgA level decreasing to 61 mg/dL compared to a pretreatment level of 3025 mg/dL. On 12/24/2019 he underwent high-dose melphalan/stem cell transplant at [facility]. He has been showing an uneventful recovery following that procedure. Plan: He now continue supportive management until his day 100 follow-up visit at [facility], at which time he will be evaluated for maintenance therapy. In the meantime, he is continuing prophylaxis with acyclovir. I recommended that he try using CeraVe topically for his itching. His further follow-up will be scheduled in accordance with recommendations from [facility]. Signed By: Olu Sanches M.D. <<Signature on File>>
== END 2020-03-08 05:34 | disposition home or self-care (01) ==
LOC: ONCMED 05:34
PROVIDERS: PCP Family Medicine; Visit Provider Internal Medicine Medical Oncology
DX: C90.00 Multiple myeloma not having achieved remission (principal); R21 Rash and other nonspecific skin eruption; Z94.84 Stem cells transplant status; Z79.899 Other long term (current) drug therapy
CPT/HCPCS: G0463

== ENCOUNTER 2020-04-19 14:17 | Outpatient (CLI) | payer MEDICARE, OTHER, SELFPAY ==
[2020-04-19 15:15] LABS: Basophils # 0.1 10^3/uL (0.0-0.1); Basophils % 0.9 %; Eosinophils # 0.5 10^3/uL (0.0-0.8); Eosinophils % 9.1 %; Hematocrit 37.1 % (42.0-52.0); Hemoglobin 12.4 g/dL (11.7-16.6); Lymphocytes # 2.2 10^3/uL (0.8-4.8); Lymphocytes % 38.1 %; Mean Corpuscular HGB Conc 33.4 g/dL (30.0-36.0); Mean Corpuscular Hemoglobin 31.7 pg (28.0-34.0); Mean Corpuscular Volume 94.9 fL (80-94); Mean Platelet Volume 9.7 fL (7.4-10.4); Monocytes # 0.8 10^3/uL (0.2-0.9); Monocytes % 13.5 %; Neutrophils # 2.17 10^3/uL (1.8-7.7); Neutrophils % 38.2 %; Nucleated Red Blood Cells % 0 %; Platelet Count 201 10^3/cmm (130-400); Red Blood Count 3.91 10^6/uL (4.1-5.3); Red Cell Distribution Width 15.3 % (12.1-15.1); White Blood Count 5.7 10^3/uL (4.0-10.0)
[2020-04-19 15:48] LABS: Alanine Aminotransferase 11 U/L (0-41); Alkaline Phosphatase 92 IU/L (40-130); Aspartate Amino Transferase 16 U/L (0-40); Blood Urea Nitrogen 19 mg/dL (8-23); Calcium 9.4 mg/dL (8.5-10.5); Carbon Dioxide 26 mmol/L (22-29); Chloride 101 mmol/L (98-107); Globulin 2.7 g/dL (1.3-4.6); Glomerular Filtration Rate 54.6 mL/min (90-130); Glucose 94 mg/dL (65-115); Osmolality Calculated 286 mOsm/kg (285-295); Sodium 137 mmol/L (136-145); Total Bilirubin 0.3 mg/dL (0.15-1.2); Total Protein 6.7 g/dL (6.6-8.7)
== END 2020-04-19 14:18 | disposition home or self-care (01) ==
LOC: ONCMED 14:22
PROVIDERS: PCP Family Medicine; Visit Provider Internal Medicine Medical Oncology
DX: C90.00 Multiple myeloma not having achieved remission (principal); D47.2 Monoclonal gammopathy; D70.1 Agranulocytosis secondary to cancer chemotherapy; T45.1X5A Adverse effect of antineoplastic and immunosuppressive drugs, initial encounter
CPT/HCPCS: 36415; 80053; 85025

== ENCOUNTER 2020-04-27 08:00 | Outpatient (CLI) | payer MEDICARE, OTHER, SELFPAY ==
[2020-04-27 14:31] LABS: Basophils % 0.5 %; Eosinophils # 0.4 10^3/uL (0.0-0.8); Eosinophils % 6.5 %; Hematocrit 39.7 % (42.0-52.0); Hemoglobin 13.2 g/dL (11.7-16.6); Lymphocytes # 2.3 10^3/uL (0.8-4.8); Mean Corpuscular HGB Conc 33.2 g/dL (30.0-36.0); Mean Corpuscular Hemoglobin 31.7 pg (28.0-34.0); Mean Corpuscular Volume 95.2 fL (80-94); Mean Platelet Volume 9.6 fL (7.4-10.4); Monocytes # 0.8 10^3/uL (0.2-0.9); Monocytes % 13.3 %; Neutrophils % 38.5 %; Nucleated Red Blood Cells % 0 %; Platelet Count 199 10^3/cmm (130-400); Red Blood Count 4.17 10^6/uL (4.1-5.3); Red Cell Distribution Width 14.7 % (12.1-15.1); White Blood Count 5.7 10^3/uL (4.0-10.0)
[2020-04-27 14:59] LABS: Alanine Aminotransferase 13 U/L (0-41); Albumin Level 3.9 g/dL (3.5-5.2); Alkaline Phosphatase 91 IU/L (40-130); Anion Gap 11.8 (5-19); Aspartate Amino Transferase 20 U/L (0-40); Blood Urea Nitrogen 17 mg/dL (8-23); Calcium 9.5 mg/dL (8.5-10.5); Carbon Dioxide 29 mmol/L (22-29); Chloride 102 mmol/L (98-107); Globulin 2.9 g/dL (1.3-4.6); Glomerular Filtration Rate 54.6 mL/min (90-130); Glucose 82 mg/dL (65-115); Osmolality Calculated 289 mOsm/kg (285-295); Potassium 3.8 mmol/L (3.5-5.1); Sodium 139 mmol/L (136-145); Total Bilirubin 0.3 mg/dL (0.15-1.2); Total Protein 6.8 g/dL (6.6-8.7)
[2020-04-27] MEDS: denosumab 120 mg SDV SUBCUT (15:45)
--- NOTE | 2020-05-05 15:35 | ONC FU_ITS ---
[facility] Patient Note Patient: Nick Sheldon Unit #: [id number]: 1950 Dictated By: Michael LaguerreDate of Visit: Apr 27, 2020 Onc MED Follow-Up/Prog Note Chief Complaint: Myeloma. History of Present Illness: Mr Sheldon is a 69 year-old man with IgA lambda myeloma. He had been seen by Dr. Prado in April 2019 to establish primary care. His initial evaluation included a comprehensive metabolic profile on 04/13/2019 which showed elevated BUN and creatinine at 19 and 1.43 mg/dL and elevation of the calculated serum globulin at 4.4 g/dL. His further laboratory studies from 04/24/2019 included CBC showing hemoglobin 11.2 g with hematocrit 34%. The red cell indices were normal. The white blood cell count was 5200 and the platelet count was 185,000. His basic metabolic profile showed borderline renal function with BUN 19 and creatinine 1.46 mg/dL. Calcium was normal at 9.7 mg/dL. Protein electrophoresis showed an IgA lambda monoclonal protein which quantitated at 2.6 g/dL. A second M band measured 0.2 g/dL. The total protein was 8.0 g/dL and the albumin measured 3.8 g/dL. The quantitative immunoglobulin levels included IgA 3025 mg/dL, IgG 299 mg/dL, and IgM 14 mg/dL. The free light chain assay showed elevated lambda light chain at 39.1 mg/L with normal kappa light chain at 5.1 mg/L and decreased kappa/lambda ratio at 0.13. Dr Sanches had seen him initially on 05/26/2019. His further evaluation included a 24-hour urine protein electrophoresis which showed no monoclonal protein and a skeletal survey which showed no evidence for lytic bone lesions. He was then referred to [facility]. His bone marrow aspiration/biopsy His bone marrow aspiration/biopsy on 06/05/2019 showed increased lambda restricted plasma cells estimated at 60% of the overall cellularity, consistent with plasma cell neoplasm. Staging PET/CT on 06/13/2019 showed no evidence for active malignancy. He had further evaluation with MRI of the spine on 06/25/2019. The cervical spine showed some degenerative changes but no evidence for metastatic disease. There was mild heterogeneity throughout the vertebral bodies of the thoracic spine. There was no evidence for a destructive process, but involvement with myeloma was not excluded. There was also mild heterogeneity throughout the lumbar spine. Also noted was a mild [id number] pattern and there was a hypointense lesion noted along the superior endplate of the L2 vertebral body. That lesion did show enhancement and there was additional very mild enhancement involving the sacrum. Overall, the findings were suspicious for involvement with myeloma. With those findings, along with the anemia and renal impairment, he was recommended to begin treatment with carfilzomib/Revlimid/dexamethasone. He has otherwise been in excellent health. He has had no other ongoing medical illnesses. He is a non-smoker. INTERIM HISTORY: He began cycle 1 of carfilzomib/Revlimid/dexamethasone on 08/05/2019. Due to the impaired renal function, the Revlimid was administered at a reduced dosage of 15 mg daily on a 21/28-day schedule. His 1st cycle was complicated by development of skin eruption, which improved with stopping the Revlimid. However, he was able to restart the Revlimid with no recurrence of the eruption. He continued with cycle 2 on 09/02/2019. His repeat protein electrophoresis at that time showed a decrease in the M protein to 0.9 g/dL. During that cycle, the Revlimid was again put on hold at day 8 due to a decrease in the neutrophil count and the platelet count. He continued with cycle 3 on 09/30/2019 and with cycle 4 on 10/28/2019. On his repeat protein electrophoresis studies prior to starting cycle 4 his M protein was undetectable. His IgA level had decreased to 61 mg/dL. He then underwent high-dose melphalan/autologous stem cell transplant at [facility] on 12/24/2019. He had followup on 04/05/2020 with the BMT team (Massiel Brown, RL) and this was his day 103 post transplant. At that visit, due to high risk cytogenetics, he was advised to pursue maintenance treatment with Velcade and Revlimid or Ixazomib (Ninlaro) and Revlimid. He was also advised to pursue Zometa or Xgeva for a total of 2 years post transplant. His insurance approved ixazomib 4 mg orally on days 1, 8, & 15 of a 28 days cycle along with Revlimid 10 mg daiy days 1-21 (off for 7 days) and Xgeva 120 mg monthly for a total of 2 years. He was also started on antiviral agent for prophylaxis (acyclovir 400 mg three times daily). He was also advised to pursue post transplant revaccination at 6 months post transplant (May 2020). He has a schedule/revaccination plan in his survivorship care plan. Mr. Sheldno is here today for follow up. He will start his first cycle of the maintenance ixazomib (Ninlaro) and Revlimid. He will also start monthly Xgeva today. He states overall he is feeling really good. He states his energy is good. He denies any fever or chills. He has had no mouth sores, sore throat or difficulty swallowing. He is eating well. He denies any shortness of breath orthopnea. He denies any rash or skin changes. He denies nausea or vomiting. States his bowels and bladder are normal for him. His ECOG is 0. Past Medical History: He has had ongoing medical illnesses. Past Surgical History: Colonoscopy in 2008 Allergies: No Known Allergies. Medications: Acyclovir 1 Tablet (of 400 mg) Oral t.i.d. LORazepam 0.5 - 1 Tablet (of 1 mg) Oral t.i.d. PRN Prochlorperazine Maleate 1 Tablet (of 10 mg) Oral q 4 hours PRN Family History: Mr. Sheldon's mother is alive. Mr. Sheldon's father at age 79: prostate cancer. Mr. Sheldon has 2 brothers: 2 alive. He has 1 sister who is . Father of prostate cancer at age 79. Mother is still living at age 94 and is in reasonably good health. A sister with complications of mental retardation. Two brothers are still living. One has valvular heart disease. Social History: Mr. Sheldon is and he is retired. Mr. Sheldon has never smoked. He has no history of drinking. Mr. Sheldon reports the following support systems: lives with spouse, significant other, family, or friends, lives in own house, supportive family/friends willing to assist with needs, and adequate transportation available for expected visits. His diet consists of regular meals. He indicates his activity level as: regular exercise. 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 He is a non-smoker. He does not drink alcohol. Review Of Symptoms: Constitutional Denies fevers, chills, night sweats, excessive fatigue or weight loss. Allergic/Immunologic No reactions. Rash from previous visit has resolved. Eyes Denies significant visual changes. No diplopia. No amaurosis. ENMT Denies changes in hearing, sore throat, mouth sores, difficulty or changes in swallowing ability, and/or sinus drainage. Hematologic/Lymphatic Denies easy bruising or bleeding. The patient denies any tender or palpable lymph nodes. Respiratory Denies dyspnea on exertion, chest pain, cough or hemoptysis. Denies orthopnea. Cardiovascular Denies anginal chest pain, palpitations or orthopnea. Gastrointestinal Denies nausea, vomiting, diarrhea, GI bleeding, or constipation. Denies change in bowel habits and/or stool color, no heartburn or early satiety. Genitourinary (M) Denies hematuria, dysuria, increased frequency, urgency, hesitancy or incontinence. Musculoskeletal Denies joint pain, swelling or redness. No decreased range of motion. Integumentary Denies chronic rashes, inflammation, ulcerations or skin changes. Neurologic Denies headache, blurred vision, and no areas of focal weakness or numbness. Normal gait. No sensory problems. Psychiatric Denies insomnia, depression, daniela or mood swings. Vital Signs: Performed on Apr 27, 2020 14:55 Height - 74.00 in Weight - 186.0 lbs (HIGH) BSA - 2.11 sq.m BMI - 23.88 Temperature - 98.3 F (LOW) Pulse - 78 /min Respiration - 19 /min BP - 146/76 mm(hg) (HIGH) O2 Sat - 99 % Pain - 0,0 - Fully active, able to carry on all predisease activities without restrictions. (ECOG) Physical Examination: Constitutional Alert, oriented, no acute distress. Skin pink, warm and dry. Head Normocephalic; atraumatic. Eyes Conjunctivae and sclerae are clear and without icterus. Pupils are reactive and equal. ENMT No oral exudates, ulcers, masses, thrush or mucositis. Oropharynx clear. Tongue normal. Neck Supple without masses or thyromegaly. No jugular venous distension. Hematologic/Lymphatic No petechiae or purpura. Respiratory Lungs are clear to auscultation without rhonchi or wheezing. Cardiovascular Regular rate and rhythm of heart without murmurs,clicks, gallops or rubs. Abdomen Non-tender, non-distended, no masses or ascites. Good bowel sounds noted in all quads. No guarding or rebound tenderness. No pulsatile masses. Back/Spine Non-tender to palpation. Extremities No visible deformities, no cyanosis, clubbing or edema. Musculoskeletal No tenderness or swelling, normal range of motion without obvious weakness. Integumentary No rashes or lesions. Neurologic No sensory or motor deficits, normal cerebellar function, normal gait. Psychiatric Alert and oriented times three. Coherent speech. Verbalizes understanding of our discussions today. Laboratory:Test performed on Apr 27, 2020 14:00 Sodium 139 mmol/L Potassium 3.8 mmol/L Chloride 102 mmol/L CO2 29 mmol/L Anion Gap 11.8 BUN 17 mg/dL Creatinine 1.3 mg/dL Cr Clearance (Est) 63.1000 mL/min eGFR 54.6 mL/min Glucose 82 mg/dL Osmolality - Calculated 289 mOsm/kg Calcium 9.5 mg/dL Protein, Total 6.8 g/dL Albumin 3.9 g/dL Globulin 2.9 g/dL Bilirubin, Total 0.3 mg/dL ALT (SGPT) 13 U/L AST (SGOT) 20 U/L Alkaline Phosphatase 91 IU/L WBC 5.7 10 3/uL RBC 4.17 10 6/uL HGB 13.2 g/dL HCT 39.7 % MCV 95.2 fL MCH 31.7 pg MCHC 33.2 g/dL RDW 14.7 % Platelet Count 199 10 3/cmm MPV 9.6 fL Neutrophils 2.20 10 3/uL Lymphocytes 2.3 10 3/uL Monocytes 0.8 10 3/uL Eosinophils 0.4 10 3/uL Basophils 0.0 10 3/uL Neutrophil % 38.5 % Lymphocyte % 41.0 % Monocyte % 13.3 % Eosinophil % 6.5 % Basophils % 0.5 % NRBC % 0 % Test performed on Feb 23, 2020 14:22 ABO & Rh Type # 2 Test Not Performed NO SPECIMEN ST Test performed on Feb 23, 2020 13:40 Anti-D Positive Blood Type OP Antibody Screen (Gel) NEGATIVE Impression: PROBLEM LIST 1. Patient with IgA lambda myeloma. He had mild anemia and mild renal impairment at initial diagnosis in May 2019. Bone marrow aspiration/biopsy showed involvement with lambda restricted plasma cells, estimated at 60% of the marrow cellularity, consistent with plasma cell neoplasm. There was no evidence for lytic bone disease on a skeletal survey or PET/CT, but MRI showed subtle changes in the thoracic and lumbar spine which were suspicious for involvement with myeloma. 2. He began treatment with carfilzomib/Revlimid/dexamethasone on 08/05/2019. Due to the impaired renal function, the Revlimid was initiated at a reduced dosage of 15 mg daily on a 21/28-day schedule. During the first cycle his Revlimid was interrupted due to a skin eruption, but he was able to resume treatment with no recurrence of the eruption. During cycle 2 the Revlimid was put on hold at day 8 due to a decrease in the neutrophil count and the platelet count. The carfilzomib and dexamethasone were given on schedule and with no reductions. He then continued with cycle 3 on 09/30/2019 and with cycle 4 on 10/28/2019. He had a very good response to the treatment with his repeat protein electrophoresis at that point showing no detectable monoclonal protein and with his IgA level decreasing to 61 mg/dL compared to a pretreatment level of 3025 mg/dL. On 12/24/2019 he underwent high-dose melphalan/stem cell transplant at [facility]. He has been showing an uneventful recovery following that procedure. He is now 100+ days post transplant and due to high risk genetics, Mr. Sheldon has been advised to undergo maintenance therapy with ixazomib (Ninlaro), Revlimid and monthly Xgeva. Plan: PROBLEMS ADDRESSED TODAY 1. Multiple myeloma not having achieved remission status post melphalan autologous stem cell transplant on 12/24/2019. A. Proceed with ixazomib 4 mg orally on days 1 8 and 15 off for 7 days. This is a 28-day cycle. B. Proceed with Revlimid 10 mg 21 out of 28 days. He is scheduled to be off for 7 days. This is also a 28-day cycle. C. Xgeva 120 mg subcutaneous monthly for total of 2 years-he will begin this today. D. He will continue antiviral therapy due to high risk of shingles being on the protease inhibitors???acyclovir 400 mg 3 times daily. E. His IgA from April 05, 2020 was 175 IgM 1211 and IgM was 29. I have asked for baseline myeloma labs today. F. Labs from today were reviewed in detail and discussed with Mr. Sheldon and a copy was given to him. WBC 5.7, hemoglobin 13.2, platelets 199,000 ANC is 2200. Potassium 3.8 is 1.3 calcium 9.5 and LFTs are normal. G. We discussed at length the Covid vaccine. After talking with Dr. Sanches, Mr. Sheldon has been advised to go ahead and sign up for the vaccine list. Per Dr. Sanches's instructions he was not concerned with him getting the flu shot but wanted him to proceed with the Covid vaccine as soon as he can get that. Proceed with his next immunizations as per his post transplant schedule which should be due in May. H. We will plan to see him back in 2 weeks with CBC CMP for monitoring of his oral chemotherapy and potential side effects. I. Mr. Sheldon was encouraged to contact us in interim should questions or problems arise. J. Total time spent in review of medical records prior to visit, discussion of current plan of care, answering questions and identifying side effects and management as well as post visit documentation was greater than 50 minutes. Signed By: Michael Laguerre-, [facility] Olu Sanches MD <<Signature on File>>
== END 2020-04-27 08:01 | disposition home or self-care (01) ==
LOC: ONCMED 08:02
PROVIDERS: PCP Family Medicine; Visit Provider Nurse Practitioner
DX: Z51.11 Encounter for antineoplastic chemotherapy (principal); C90.00 Multiple myeloma not having achieved remission; D47.2 Monoclonal gammopathy; D70.1 Agranulocytosis secondary to cancer chemotherapy; T45.1X5A Adverse effect of antineoplastic and immunosuppressive drugs, initial encounter; Z79.899 Other long term (current) drug therapy
CPT/HCPCS: 36415; 80053; 85025; 96372; 99215; J0897

== ENCOUNTER 2020-05-24 11:49 | Outpatient (CLI) | payer MEDICARE, OTHER, SELFPAY ==
[2020-05-24 12:27] LABS: Eosinophils # 0.2 10^3/uL (0.0-0.8); Hematocrit 38.3 % (42.0-52.0); Hemoglobin 12.9 g/dL (11.7-16.6); Lymphocytes # 1.8 10^3/uL (0.8-4.8); Lymphocytes % 43.9 %; Mean Corpuscular HGB Conc 33.7 g/dL (30.0-36.0); Mean Corpuscular Hemoglobin 31.5 pg (28.0-34.0); Mean Corpuscular Volume 93.6 fL (80-94); Monocytes # 0.6 10^3/uL (0.2-0.9); Monocytes % 15.8 %; Neutrophils # 1.32 10^3/uL (1.8-7.7); Nucleated Red Blood Cells % 0 %; Platelet Count 142 10^3/cmm (130-400); Red Blood Count 4.09 10^6/uL (4.1-5.3); Red Cell Distribution Width 14.8 % (12.1-15.1)
[2020-05-24 12:47] LABS: Alanine Aminotransferase 11 U/L (0-41); Albumin Level 3.7 g/dL (3.5-5.2); Alkaline Phosphatase 81 IU/L (40-130); Anion Gap 12.9 (5-19); Aspartate Amino Transferase 15 U/L (0-40); Blood Urea Nitrogen 13 mg/dL (8-23); Calcium 8.7 mg/dL (8.5-10.5); Carbon Dioxide 26 mmol/L (22-29); Chloride 103 mmol/L (98-107); Globulin 2.9 g/dL (1.3-4.6); Glomerular Filtration Rate 66.2 mL/min (90-130); Glucose 107 mg/dL (65-115); Osmolality Calculated 287 mOsm/kg (285-295); Potassium 3.9 mmol/L (3.5-5.1); Sodium 138 mmol/L (136-145); Total Bilirubin 0.3 mg/dL (0.15-1.2); Total Protein 6.6 g/dL (6.6-8.7)
--- NOTE | 2020-05-30 14:29 | ONC FU_ITS ---
[facility] Patient Note Patient: Nick Sheldon Unit #: [id number]: 1950 Dictated By: Michael LaguerreDate of Visit: May 24, 2020 Onc MED Follow-Up/Prog Note Chief Complaint: Myeloma. History of Present Illness: Mr Sheldon is a 69 year-old man with IgA lambda myeloma. He had been seen by Dr. Prado in April 2019 to establish primary care. His initial evaluation included a comprehensive metabolic profile on 04/13/2019 which showed elevated BUN and creatinine at 19 and 1.43 mg/dL and elevation of the calculated serum globulin at 4.4 g/dL. His further laboratory studies from 04/24/2019 included CBC showing hemoglobin 11.2 g with hematocrit 34%. The red cell indices were normal. The white blood cell count was 5200 and the platelet count was 185,000. His basic metabolic profile showed borderline renal function with BUN 19 and creatinine 1.46 mg/dL. Calcium was normal at 9.7 mg/dL. Protein electrophoresis showed an IgA lambda monoclonal protein which quantitated at 2.6 g/dL. A second M band measured 0.2 g/dL. The total protein was 8.0 g/dL and the albumin measured 3.8 g/dL. The quantitative immunoglobulin levels included IgA 3025 mg/dL, IgG 299 mg/dL, and IgM 14 mg/dL. The free light chain assay showed elevated lambda light chain at 39.1 mg/L with normal kappa light chain at 5.1 mg/L and decreased kappa/lambda ratio at 0.13. Dr Sanches had seen him initially on 05/26/2019. His further evaluation included a 24-hour urine protein electrophoresis which showed no monoclonal protein and a skeletal survey which showed no evidence for lytic bone lesions. He was then referred to [facility]. His bone marrow aspiration/biopsy His bone marrow aspiration/biopsy on 06/05/2019 showed increased lambda restricted plasma cells estimated at 60% of the overall cellularity, consistent with plasma cell neoplasm. Staging PET/CT on 06/13/2019 showed no evidence for active malignancy. He had further evaluation with MRI of the spine on 06/25/2019. The cervical spine showed some degenerative changes but no evidence for metastatic disease. There was mild heterogeneity throughout the vertebral bodies of the thoracic spine. There was no evidence for a destructive process, but involvement with myeloma was not excluded. There was also mild heterogeneity throughout the lumbar spine. Also noted was a mild [id number] pattern and there was a hypointense lesion noted along the superior endplate of the L2 vertebral body. That lesion did show enhancement and there was additional very mild enhancement involving the sacrum. Overall, the findings were suspicious for involvement with myeloma. With those findings, along with the anemia and renal impairment, he was recommended to begin treatment with carfilzomib/Revlimid/dexamethasone. He has otherwise been in excellent health. He has had no other ongoing medical illnesses. He is a non-smoker. INTERIM HISTORY: He began cycle 1 of carfilzomib/Revlimid/dexamethasone on 08/05/2019. Due to the impaired renal function, the Revlimid was administered at a reduced dosage of 15 mg daily on a 21/28-day schedule. His 1st cycle was complicated by development of skin eruption, which improved with stopping the Revlimid. However, he was able to restart the Revlimid with no recurrence of the eruption. He continued with cycle 2 on 09/02/2019. His repeat protein electrophoresis at that time showed a decrease in the M protein to 0.9 g/dL. During that cycle, the Revlimid was again put on hold at day 8 due to a decrease in the neutrophil count and the platelet count. He continued with cycle 3 on 09/30/2019 and with cycle 4 on 10/28/2019. On his repeat protein electrophoresis studies prior to starting cycle 4 his M protein was undetectable. His IgA level had decreased to 61 mg/dL. He then underwent high-dose melphalan/autologous stem cell transplant at [facility] on 12/24/2019. He had followup on 04/05/2020 with the BMT team (Massiel Brown NP) and this was his day 103 post transplant. At that visit, due to high risk cytogenetics, he was advised to pursue maintenance treatment with Velcade and Revlimid or Ixazomib (Ninlaro) and Revlimid. He was also advised to pursue Zometa or Xgeva for a total of 2 years post transplant. His insurance approved ixazomib 4 mg orally on days 1, 8, & 15 of a 28 days cycle along with Revlimid 10 mg daiy days 1-21 (off for 7 days) and Xgeva 120 mg monthly for a total of 2 years. He was also started on antiviral agent for prophylaxis (acyclovir 400 mg three times daily). He was also advised to pursue post transplant revaccination at 6 months post transplant (May 2020). He has a schedule/revaccination plan in his survivorship care plan. Mr. Sheldon is here today for follow up. He began his first cycle of the maintenance ixazomib (Ninlaro) and Revlimid on 05/03/2020. He also started monthly Xgeva on04/27/2020. He states overall he is feeling really good. He states his energy is good. He denies any fever or chills. He has had no mouth sores, sore throat or difficulty swallowing. He is eating well. He denies any shortness of breath orthopnea. He denies any rash or skin changes. He denies nausea or vomiting. He states his bowels and bladder are normal for him. His only concern is some leg cramps that he has had intermittently. He states this did occur after his bone shot. He states only lasted a few days and does come and go pretty quickly states he can usually get up and walk them out. They are not affecting his quality of life at this time. He has noticed that his eyes have been somewhat dry but blames him that on the heat that he is using at home as well. We discussed that he could use [id number] eyedrops for rewetting purposes if needed. He states he has gotten his Covid vaccines completed His ECOG is 0. Past Medical History: He has had ongoing medical illnesses. Past Surgical History: COVID VAC in 2020 Colonoscopy in 2008 Allergies: No Known Allergies. Medications: Acyclovir 1 Tablet (of 400 mg) Oral t.i.d. LORazepam 0.5 - 1 Tablet (of 1 mg) Oral t.i.d. PRN Prochlorperazine Maleate 1 Tablet (of 10 mg) Oral q 4 hours PRN Family History: Mr. Sheldon's mother is alive. Mr. Sheldon's father at age 79: prostate cancer. Mr. Sheldon has 2 brothers: 2 alive. He has 1 sister who is . Father of prostate cancer at age 79. Mother is still living at age 94 and is in reasonably good health. A sister with complications of mental retardation. Two brothers are still living. One has valvular heart disease. Social History: Mr. Sheldon is and he is retired. Mr. Sheldon has never smoked. He has no history of drinking. Mr. Sheldon reports the following support systems: lives with spouse, significant other, family, or friends, lives in own house, supportive family/friends willing to assist with needs, and adequate transportation available for expected visits. His diet consists of regular meals. He indicates his activity level as: regular exercise. 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 He is a non-smoker. He does not drink alcohol. Review Of Symptoms: Constitutional Denies fevers, chills, night sweats, excessive fatigue or weight loss. Allergic/Immunologic No reactions. Rash from previous visit has resolved. Eyes Denies significant visual changes. No diplopia. No amaurosis. ENMT Denies changes in hearing, sore throat, mouth sores, difficulty or changes in swallowing ability, and/or sinus drainage. Hematologic/Lymphatic Denies easy bruising or bleeding. The patient denies any tender or palpable lymph nodes. Respiratory Denies dyspnea on exertion, chest pain, cough or hemoptysis. Denies orthopnea. Cardiovascular Denies anginal chest pain, palpitations or orthopnea. Gastrointestinal Denies nausea, vomiting, diarrhea, GI bleeding, or constipation. Denies change in bowel habits and/or stool color, no heartburn or early satiety. Genitourinary (M) Denies hematuria, dysuria, increased frequency, urgency, hesitancy or incontinence. Musculoskeletal Denies joint pain, swelling or redness. No decreased range of motion. Intermittent leg cramps for 9 days after Xgeva???resolved at present. Integumentary Denies chronic rashes, inflammation, ulcerations or skin changes. Neurologic Denies headache, blurred vision, and no areas of focal weakness or numbness. Normal gait. No sensory problems. Psychiatric Denies insomnia, depression, daniela or mood swings. Vital Signs: Performed on May 24, 2020 13:49 Height - 74.00 in Weight - 191.6 lbs (HIGH) BSA - 2.13 sq.m BMI - 24.60 Temperature - 99.0 F (HIGH) Pulse - 78 /min Respiration - 19 /min BP - 158/72 mm(hg) (HIGH) O2 Sat - 96 % Pain - 0,0 - Fully active, able to carry on all predisease activities without restrictions. (ECOG) Physical Examination: Constitutional Alert, oriented, no acute distress. Skin pink, warm and dry. Head Normocephalic; atraumatic. Eyes Conjunctivae and sclerae are clear and without icterus. Pupils are reactive and equal. Neck Supple without masses or thyromegaly. No jugular venous distension. Hematologic/Lymphatic No petechiae or purpura. Respiratory Lungs are clear to auscultation without rhonchi or wheezing. Cardiovascular Regular rate and rhythm of heart without murmurs,clicks, gallops or rubs. Abdomen Non-tender, non-distended, no masses or ascites. Good bowel sounds noted in all quads. No guarding or rebound tenderness. No pulsatile masses. Back/Spine Non-tender to palpation. Extremities No visible deformities, no cyanosis, clubbing or edema. Musculoskeletal No tenderness or swelling, normal range of motion without obvious weakness. Integumentary No rashes or lesions. Neurologic No sensory or motor deficits, normal cerebellar function, normal gait. Psychiatric Alert and oriented times three. Coherent speech. Verbalizes understanding of our discussions today. Laboratory:Test performed on May 24, 2020 12:05 Sodium 138 mmol/L Potassium 3.9 mmol/L Chloride 103 mmol/L CO2 26 mmol/L Anion Gap 12.9 BUN 13 mg/dL Creatinine 1.1 mg/dL Cr Clearance (Est) 76.81 mL/min eGFR 66.2 mL/min Glucose 107 mg/dL Osmolality - Calculated 287 mOsm/kg Calcium 8.7 mg/dL Protein, Total 6.6 g/dL Albumin 3.7 g/dL Globulin 2.9 g/dL Bilirubin, Total 0.3 mg/dL ALT (SGPT) 11 U/L AST (SGOT) 15 U/L Alkaline Phosphatase 81 IU/L WBC 4.0 10 3/uL RBC 4.09 10 6/uL HGB 12.9 g/dL HCT 38.3 % MCV 93.6 fL MCH 31.5 pg MCHC 33.7 g/dL RDW 14.8 % Platelet Count 142 10 3/cmm MPV 11.0 fL Neutrophils 1.32 10 3/uL Lymphocytes 1.8 10 3/uL Monocytes 0.6 10 3/uL Eosinophils 0.2 10 3/uL Basophils 0.0 10 3/uL Neutrophil % 33.0 % Lymphocyte % 43.9 % Monocyte % 15.8 % Eosinophil % 6.0 % Basophils % 1.0 % NRBC % 0 % Impression: PROBLEM LIST 1. Patient with IgA lambda myeloma. He had mild anemia and mild renal impairment at initial diagnosis in May 2019. Bone marrow aspiration/biopsy showed involvement with lambda restricted plasma cells, estimated at 60% of the marrow cellularity, consistent with plasma cell neoplasm. There was no evidence for lytic bone disease on a skeletal survey or PET/CT, but MRI showed subtle changes in the thoracic and lumbar spine which were suspicious for involvement with myeloma. 2. He began treatment with carfilzomib/Revlimid/dexamethasone on 08/05/2019. Due to the impaired renal function, the Revlimid was initiated at a reduced dosage of 15 mg daily on a 21/28-day schedule. During the first cycle his Revlimid was interrupted due to a skin eruption, but he was able to resume treatment with no recurrence of the eruption. During cycle 2 the Revlimid was put on hold at day 8 due to a decrease in the neutrophil count and the platelet count. The carfilzomib and dexamethasone were given on schedule and with no reductions. He then continued with cycle 3 on 09/30/2019 and with cycle 4 on 10/28/2019. He had a very good response to the treatment with his repeat protein electrophoresis at that point showing no detectable monoclonal protein and with his IgA level decreasing to 61 mg/dL compared to a pretreatment level of 3025 mg/dL. On 12/24/2019 he underwent high-dose melphalan/stem cell transplant at [facility]. He has been showing an uneventful recovery following that procedure. He is now 100+ days post transplant and due to high risk genetics, Mr. Sheldon has been advised to undergo maintenance therapy with ixazomib (Ninlaro), Revlimid and monthly Xgeva. Plan: PROBLEMS ADDRESSED TODAY 1. Multiple myeloma not having achieved remission status post melphalan autologous stem cell transplant on 12/24/2019. A. Proceed with ixazomib 4 mg orally on days 1 8 and 15 off for 7 days. This is a 28-day cycle. He will begin cycle 2 on 05/30/2020. B. Proceed with Revlimid 10 mg 21 out of 28 days. He is scheduled to be off for 7 days. This is also a 28-day cycle. He also began cycle 2 of the Revlimid on May 30, 2020 C. Xgeva 120 mg subcutaneous monthly for total of 2 years. His last injection was on April 27, 2020. We have asked him to return tomorrow to make sure there is adequate time between injections to meet insurance compliance. D. He will continue antiviral therapy due to high risk of shingles being on the protease inhibitors???acyclovir 400 mg 3 times daily. E. His IgA from April 05, 2020 was 175 IgM 1211 and IgM was 29. I have asked for baseline myeloma labs today. F. Labs from today were reviewed in detail and discussed with Mr. Sheldon and a copy was given to him. WBC 4.0, hemoglobin 12.9, platelets 142,000 ANC is 1320. Potassium 3.9 random glucose 107 creatinine 1.1 LFTs are normal. G. We will plan to see him back in 4 weeks (at least 28 days) with CBC CMP, myeloma labs for monitoring of his oral chemotherapy and potential side effects. He will be due for Xgeva at that time as well. H. Mr. Sheldon was encouraged to contact us in interim should questions or problems arise. Signed By: Michael Laguerre_, AOCNP Olu Sanches MD <<Signature on File>>
== END 2020-05-24 11:50 | disposition home or self-care (01) ==
LOC: ONCMED 11:50
PROVIDERS: Nurse Practitioner; PCP Family Medicine; Visit Provider Internal Medicine Medical Oncology
DX: C90.00 Multiple myeloma not having achieved remission (principal); Z94.84 Stem cells transplant status; Z79.899 Other long term (current) drug therapy
CPT/HCPCS: 36415; 80053; 85025; 99214

== ENCOUNTER 2020-05-25 07:57 | Outpatient (CLI) | payer MEDICARE, OTHER, SELFPAY ==
[2020-05-25] MEDS: denosumab 120 mg SDV SUBCUT (08:11)
== END 2020-05-25 07:58 | disposition home or self-care (01) ==
LOC: ONCMED 07:57
PROVIDERS: PCP Family Medicine; Visit Provider Internal Medicine Medical Oncology
DX: C90.00 Multiple myeloma not having achieved remission (principal); D70.1 Agranulocytosis secondary to cancer chemotherapy; T45.1X5A Adverse effect of antineoplastic and immunosuppressive drugs, initial encounter; D47.2 Monoclonal gammopathy; D64.9 Anemia, unspecified; D63.0 Anemia in neoplastic disease
CPT/HCPCS: 96372; J0897

== ENCOUNTER 2020-06-02 10:51 | Emergency (ER) | payer MEDICARE, OTHER, SELFPAY ==
[2020-06-02 11:00] VITALS: BP 111/61; PULSE 69; RESP 16; TEMP 36.4; O2SAT 96; BMI 23.7
--- NOTE | 2020-06-02 11:16 | ED_ITS ---
Documented by User: MAN Barone 06/02/20 15:10 HPI - Fall General: Chief Complaint: Fall Stated Complaint: fall-right shoulder injury Time Seen by Provider: 06/02/20 11:11 Source: patient Mode of arrival: ambulatory Limitations: no limitations History of Present Illness: HPI Narrative: Patient is a nice 70-year-old male who presents to ED today along with his and daughter for evaluation following a fall. Patient tells me he was on the roof of a shed that he was tearing down when a board broke loose causing him to fall. Fall was at a height of approximately 8 feet. Patient tells me he fell onto his right side mainly injuring his right shoulder but also complains of right lateral and posterior rib pain. He denies striking his head but a very small abrasion was noted to his left parietal scalp. No LOC. He does not complain of a headache. He is not having any neck pain or midline back pain. Patient is not on anticoagulation. MD complaint: fall Onset (ago): hour(s) Fall from: from height (distance) (8 feet) Fall witnessed: no Place fall occurred: home Loss of consciousness: None Prolonged down time: no Symptoms prior to fall: none Context: other (board broke on roof) Location of injury: chest Location of injury - extremities: Right: shoulder Severity: moderate Associated symptoms-after fall: Reports no associated symptoms and chest pain (R rib pain); Denies abdominal pain, confusion, difficulty walking, headache(s), lightheadedness or neck pain Review of Systems Eyes: Denies: change in vision, blurry vision or photophobia ENMT: Denies: throat pain or odynophagia Card: Reports: chest pain (R rib pain); Denies: palpitations, irregular heart rhythm, edema, swelling of feet/ankles, lightheadedness, syncope, pre-syncope, dyspnea on exertion, orthopnea, leg pain with exertion or acrocyanosis Resp: Reports: pain on inspiration; Denies: dyspnea, productive cough, non-productive cough, wheezing, hemoptysis or chest congestion GI: Denies: abdominal pain, nausea or vomiting : Denies: flank pain Musc: Reports: back pain (R posterior rib pain), joint pain (R shoulder/clavicle) and limited range of motion (R shoulder); Denies: neck pain, extremity pain or extremity swelling Neuro: Denies: headache(s), numbness in extremities, weakness in extremities, sensory changes, difficulty walking, frequent falls, dizziness, confusion or Slurred speech present Physical Exam Const: COMMON NORMALS: no acute distress, average body habitus, patient oriented x3, no limitations, healthy appearing, alert and well nourished GENERAL APPEARANCE: cooperative ORIENTATION/CONSCIOUSNESS: Yes awake, Yes oriented to person, Yes oriented to place and Yes oriented to time HENMT: COMMON NORMALS: normocephalic and atraumatic HEAD & SCALP: normal to inspection, normocephalic, atraumatic and other (has a very small 1-2mm abrasion to L parietal scalp) Eye: COMMON NORMALS: Equal, round and reactive pupils present and EOMs intact bilaterally GENERAL EYE: appearance normal, both eyes and all related structures PUPIL: Yes Equal, round and reactive pupils present Neck/C-Spine: COMMON NORMALS: full ROM CERVICAL SPINE: Yes cervical ROM normal, No pain with cervical ROM, No Cervical spine tenderness and No Paracervical muscle tenderness Chest: COMMONS NORMALS: normal inspection of the chest OTHER: TTP R lateral/posterior ribs; no crepitus noted; no ecchymosis Resp: COMMON NORMALS: normal respiratory effort and clear to auscultation bilaterally AUSCULTATION: clear to auscultation bilaterally Cardio: COMMON NORMALS: regular rate and regular rhythm RATE: regular rate RHYTHM: regular rhythm GI: COMMON NORMALS: Normal to inspection, nondistended, normoactive bowel sounds present, Soft to palpation, non-tender, No hepatosplenomegaly present and no masses PALPATION: Yes Soft to palpation and Yes No hepatosplenomegaly present Back/Pelvis: COMMON NORMALS: thoracic and lumbar spine normal to inspection, no thoracic nor lumbar tenderness and thoraco-lumbar ROM normal Extremity: GENERAL: Yes normal exam except as noted OTHER: pt with obvious deformity to R clavicle; dec ROM of shoulder secondary to this; glenohumeral joint feels normal; NV intact Neuro: IRVIN COMA SCALE: document GCS findings [place] coma scale eye opening: Spontaneous [place] coma scale verbal response: Orientated [place] coma scale motor response: Obey commands [place] coma scale total score: 15 COMMON NORMALS: patient oriented x3, CN's II-XII intact bilaterally, moves all extremities, no focal motor deficits, no sensory deficits noted and gait normal SENSORIUM/ORIENTATION: Yes alert, Yes oriented to person, Yes oriented to place and Yes oriented to time Skin: NARRATIVE SKIN EXAM: small abrasion to scalp; otherwise normal skin exam Course ED course: Dr. Arzate was alerted as soon as I spoke to Dr. Deleon in regards to patient's chest CT. He has spoken to [facility] ED for transfer. Vital Signs: Vital signs: Vital Signs Temperature 97.6 F 06/02/20 11:00 Pulse Rate 71 06/02/20 11:20 Respiratory Rate 17 06/02/20 11:20 Blood Pressure 112/62 06/02/20 11:20 Pulse Oximetry 96 06/02/20 11:20 MDM - Fall MDM Narrative: Medical decision making narrative: Patient is a nice 70-year-old gentleman who presented to ED today following an 8 foot fall. His main complaint was right clavicular pain but also complained of pain to his right posterior lateral ribs. CT of his chest revealing extensive injuries including a flail chest, chest wall bleeding, minimal pulmonary laceration pulmonary contusion, and bilateral tiny pneumothoraces. Dr. Arzate was immediately alerted after CT chest resulted. Due to these injuries CT head, cervical spine, and thoracic spine were obtained. Patient's vital signs have been normal throughout the stay. Surprisingly his pain is minimal. Dr. Deleon did good a good look at his abdomen on his CT chest and did not see any acute findings. Dr. Arzate spoke with a [facility] ED physician who accepts transfer. Lab Data: Labs: Lab Results 06/02/20 06/02/20 06/02/20 Range/Units 11:40 11:40 11:40 WBC 4.9 (4.0-10.0) 10^3/ uL RBC 4.14 (4.1-5.3) 10^6/u L Hgb 13.0 (11.7-16.6) g/dL Hct 39.2 L (42.0-52.0) % MCV 94.7 H (80-94) fL MCH 31.4 (28.0-34.0) pg MCHC 33.2 (30.0-36.0) g/dL RDW 15.2 H (12.1-15.1) % Plt Count 161 (130-400) 10^3/c mm MPV 10.2 (7.4-10.4) fL Neut % (Auto) 53.5 % Lymph % (Auto) 24.6 % [place] % (Auto) 17.0 % Eos % (Auto) 2.3 % Baso % (Auto) 1.8 % Neut # (Auto) 2.60 (1.8-7.7) 10^3/u L Lymph # (Auto) 1.2 (0.8-4.8) 10^3/u L [place] # (Auto) 0.8 (0.2-0.9) 10^3/u L Eos # (Auto) 0.1 (0.0-0.8) 10^3/u L Baso # (Auto) 0.1 (0.0-0.1) 10^3/u L Nucleated RBC % (a uto) 0 % Nucleated RBCs # 0.0 /100WBC PT 13.60 (12.1-14.9) SECO NDS INR 1.01 (0.8-1.2) APTT 31.0 (23.9-36.7) SECO NDS Sodium 136 (136-145) mmol/L Potassium 3.8 (3.5-5.1) mmol/L Chloride 101 (98-107) mmol/L Carbon Dioxide 25 (22-29) mmol/L Anion Gap 13.8 (5-19) BUN 18 (8-23) mg/dL Creatinine 1.3 H (0.7-1.2) mg/dL GFR Calculation Not Reportable Glucose 120 H (65-115) mg/dL Calculated Osmolal ity 285 (285-295) mOsm/k g Calcium 8.9 (8.5-10.5) mg/dL Total Bilirubin 0.6 (0.15-1.2) mg/dL AST 31 (0-40) U/L ALT 19 (0-41) U/L Alkaline Phosphata se 67 (40-130) IU/L Total Protein 7.0 (6.6-8.7) g/dL Albumin 4.1 (3.5-5.2) g/dL Globulin 2.9 (1.3-4.6) g/dL Imaging Data^: XR R shoulder: Radiologist's impression: [address] [address] XRay Report Signed Patient: Nick Sheldon LUnit #: [id number] : 1950Acct#:[id number] Age/Sex: 70 / MADM Date: 06/02/20 Loc: ERRoom/Bed: Attending Dr: Ordering Provider/Ordering MD: Elly Valdez Date of Service: 06/02/20 Procedure(s): XR shoulder RT min 2V* [id number] Accession Number(s): [id number] Report Number: [id number] WS: [id number] Right shoulder, 3 views, 06/02/2020 Clinical Data: fall 8 ft; clavicular pain/deformity Comparison: None. Findings: There is a fracture of the junction of the middle and distal thirds of the right clavicle which is comminuted. The shoulder joint is intact. The AC joint is normal. There is extrapleural thickening in the superior aspect of the right pleural space which could represent a hematoma. No pneumothorax is seen. XR/XR shoulder RT min 2V* [id number] Impression: 1. Comminuted fracture lateral aspect right clavicle. 2. Extra pleural thickening in the superior aspect of the right pleural space which could represent a hematoma. Dictated By:Vanda Stevenson MD Signed By:Vanda Stevenson MDSigned Date/Time:06/02/20 1159 DD/ 1155 CT Chest: Radiologist's impression: [address] [place] [address] CT Scan Report Signed Patient: Nick Sheldon Unit #: [id number] : 1950 Age/Sex: 70 / M ADM Date: 06/02/20 Loc: ER Room/Bed: Attending Dr: Ordering Provider/Ordering MD: Elly Valdez Date of Service: 06/02/20 Procedure(s): CT chest w con* [id number] Accession Number(s): [id number] Report Number: [id number] WS: [id number] CT CHEST WITH INTRAVENOUS CONTRAST HISTORY: fall 8 ft; R chest/rib pain TECHNIQUE: Contiguous 5 mm axial imaging performed on the thorax. Coronal and sagittal reformats are submitted. All CT scans at [facility] use at least one of these dose optimization techniques: automated exposure control; mA and/or kV adjustment per patient size (includes targeted exams where dose is matched to clinical indication); or iterative reconstruction. CONTRAST: Omnipaque 300; 95 mL IV. DLP: 1027.19 mGy.cm COMPARISON: 05/27/2019 Lungs and central airway: Increased soft tissue along the intercostal muscles of the RIGHT chest consistent with bleeding from multiple rib fractures. There is also a small layering RIGHT hemothorax. There are a few tiny areas of subpleural are. Small foci of air in the posterior RIGHT lower lobe consistent with a small contusion and laceration. This is at the site of a hemoperitoneum. LEFT lung is clear. Pulmonary contusions involving the RIGHT upper and lower lobes and along the RIGHT minor fissure. Heart and pericardium: Normal size heart with no pericardial effusion. Mediastinum and peter: No mediastinum or hilar adenopathy. Vessels: Mild atherosclerosis of aorta. Coronary artery calcifications. No mediastinal bleeding or hematoma. Chest wall and lower neck: There is extensive soft tissue infiltration thickening along the inferior neck to the RIGHT chest wall from the posttraumatic bleeding in the fractures. Upper abdomen: Negative. Osseous structures: There is a comminuted fracture involving the RIGHT clavicle with multiple spiculations. There is adjacent soft tissue bleeding. No active extravasation is identified. Good enhancement of the subclavian and axillary artery with no extravasation. There is soft tissue hematoma surrounding the LEFT subclavian vein. Numerous rib fractures extend from the first rib to the eighth rib beginning anteriorly and extending laterally and posteriorly. Several of these ribs are fractured in 2 places consistent with a flail chest. I believe the second through seventh ribs are fractured in 2 separate places. No definite spine fracture is identified. CT/CT chest w con* [id number] IMPRESSION: 1. Right-sided flail chest with numerous consecutive rib fractures. Fractures extend from the first through eighth rib. The second through eighth ribs appear to be fractured in 2 [address]. 2. Moderate amount of bleeding within the chest wall at the rib fracture sites and a small RIGHT hemothorax. 3. Minimal pulmonary laceration at the RIGHT lung base. 4. Soft tissue injury and bleeding surrounding the displaced comminuted RIGHT clavicle fracture. This bleeding is within the soft tissues of the RIGHT supraclavicular location. No definite extravascular extravasation or vascular injury on this examination. 5. There are a few areas of very minimal subpleural air which are probably pneumothoraces or air from the fractures. 6. Pulmonary contusion nondependent surfaces of the RIGHT upper and RIGHT lower lobe and along the minor fissure. Suspect tiny pleural effusion along the minor fissure also. Notified MAN Barone at 06/02/2020 1:02 PM. Dictated By: Maite Deleon DO Signed By: Maite Deleon DO Signed Date/Time: 06/02/20 1302 DD/ 1230 CT Head: Radiologist's impression: [address] [address] [address] Scan Report Signed Patient: Nick Sheldon Unit #: [id number] : 1950 Age/Sex: 70 / M ADM Date: 06/02/20 Loc: ER Room/Bed: Attending Dr: Ordering Provider/Ordering MD: Elly Valdez Date of Service: 06/02/20 Procedure(s): CT head wo con* [id number] Accession Number(s): [id number] Report Number: [id number] WS: [id number] CT HEAD NONCONTRAST HISTORY: 8 ft fall TECHNIQUE: Contiguous axial imaging performed through the brain in 2.5 mm imaging. Bone and soft tissue windows. Sagittal and coronal reformats reviewed. All CT scans at [facility] use at least one of these dose optimization techniques: automated exposure control; mA and/or kV adjustment per patient size (includes targeted exams where dose is matched to clinical indication); or iterative reconstruction. DLP: 969.89 mGy.cm COMPARISON: None available. Patient received IV contrast for the chest CT done earlier the same day. Focal areas of hemorrhage or subarachnoid or subdural blood would be obscured with this amount of enhancement. There are no large areas of hemorrhage. No large subdural hematomas. Moderate amount of decreased attenuation within the white matter from chronic ischemic disease. No herniation. Ventricles: Normal size with no hydrocephalus. Paranasal sinuses: As visualized are clear. Mastoid air cells: Well pneumatized. Calvarium and scalp: Skull is intact with no soft tissue edema or swelling. CT/CT head wo con* [id number] IMPRESSION: 1. No large areas of acute hemorrhage or edema. 2. Recent IV contrast injection for the chest CT would obscured small areas of hemorrhage. 3. No skull fracture. Dictated By: Maite Deleon DO Signed By: Maite Deleon DO Signed Date/Time: 06/02/20 1328 DD/ 1324 CT cervical: Radiologist's impression: [facility] [address] [facility] [place] [address] CT Scan Report Signed Patient: Nick Sheldon #: [id number] : 1950Acct#:[id number] Age/Sex: 70 / MADM Date: 06/02/20 Loc: ERRoom/Bed: Attending Dr: Ordering Provider/Ordering MD: Elly Valdez Date of Service: 06/02/20 Procedure(s): CT cervical spin wo con* [id number] Accession Number(s): [id number] Report Number: [id number] WS: [id number] CT CERVICAL SPINE HISTORY: 8 ft fall TECHNIQUE: Contiguous 2.5 mm axial imaging performed through the entire cervical spine. Sagittal and coronal reformats also performed. All CT scans at [facility] use at least one of these dose optimization techniques: automated exposure control; mA and/or kV adjustment per patient size (includes targeted exams where dose is matched to clinical indication); or iterative reconstruction. DLP: 769.74 mGy.cm COMPARISON: None available. Normal cervical alignment. Mild disc space narrowing at C5-6 and C6-7. No acute fractures. Craniocervical junction is normal. Facet joints remain aligned. Lateral masses of C1 and C2 are normal. The odontoid is intact. No cervical spine fractures. C2-C3: There is shallow central disc protrusion. C3-C4: Bilateral facet arthritis and foraminal narrowing. Shallow central protrusion. C4-C5: Bilateral facet arthritis and foraminal narrowing. Shallow central protrusion. C5-C6: Mild osteophytic ridging with mild bilateral foraminal stenosis. Lytic areas in each facet joint are probably degenerative. C6-C7: Mild osteophytic ridging with bilateral foraminal narrowing. C7-T1: Mild foraminal narrowing. Again noted are upper RIGHT rib fractures involving the first and second ribs. Soft tissue thickening in the intercostal muscles from the prior rib fractures with bleeding. CT/CT cervical spin wo con* [id number] IMPRESSION: 1. No acute cervical spine fracture. 2. Intercostal soft tissue bleeding from the rib fractures. First and second RIGHT rib fractures are again identified. Dictated By:Maite Deleon DO Signed By:Maite Deleon DOSigned Date/Time:06/02/20 1338 DD/ 1328 CT thoracic: Radiologist's impression: [address] [place] [address] CT Scan Report Signed Patient: Nick Sheldon #: [id number] : 1950Acct#:[id number] Age/Sex: 70 / MADM Date: 06/02/20 Loc: ERRoom/Bed: Attending Dr: Ordering Provider/Ordering MD: Elly Valdez Date of Service: 06/02/20 Procedure(s): CT thoracic spin wo con* [id number] Accession Number(s): [id number] Report Number: [id number] WS: [id number] CT THORACIC SPINE HISTORY: 8 ft fall TECHNIQUE: Contiguous 2.5 mm axial images are reviewed to thoracic spine. Images are reformatted in sagittal and coronal planes. All CT scans at [facility] use at least one of these dose optimization techniques: automated exposure control; mA and/or kV adjustment per patient size (includes targeted exams where dose is matched to clinical indication); or iterative reconstruction. DLP: 2973.79 mGy.cm COMPARISON: None available. No acute thoracic spine fractures are identified. Disc spaces are slightly narrowed throughout. Spinous processes and transverse processes appear to be intact. No compression upon the cord. Again noted is a small RIGHT pneumothorax. Small layering RIGHT hemothorax and pulmonary laceration at the RIGHT lung base. There is also a lucency noted adjacent to the descending aorta at the level of the LEFT hilum. Very suspicious for pneumothorax. This was not present on the CT from 06/13/2019. No rib fractures are noted on the LEFT. Patient has numerous rib fractures on the RIGHT which were described in the chest CT report. CT/CT thoracic spin wo con* [id number] IMPRESSION: 1. No thoracic spine fractures are identified. 2. Small bilateral pneumothoraces. 3. Small RIGHT hemothorax. 4. Patient has known multiple right-sided rib fractures described in the chest CT report. Notified MAN Barone at 06/02/2020 1:47 PM. Dictated By:Maite Deleon DO Signed By:Maite Deleon DOSigned Date/Time:06/02/20 1349 DD/ 1338 Discharge Plan Discharge Patient Disposition: Transfer to ED Clinical Impression: Closed flail chest, Right pulmonary contusion, Pulmonary laceration, Closed fracture of right clavicle, Fall from height of greater than 3 feet Condition: Stable Prescriptions: No Action Tylenol 325 mg Tablet 325 - 650 mg PO QID PRN (Reason: Pain) RF: 0 acyclovir 400 mg tablet 400 mg PO TID RF: 0 Revlimid 10 mg capsule See Rx Instructions .ROUTE .COMPLEX RF: 0 Ninlaro 4 mg capsule 4 mg PO Q7D RF: 0 Referrals: Ede Prado DO [Primary Care Provider] - Coding Level of Care Code ED Capsule Filling Machine Operator for Chg Fwd Exam Comprehensive Documented by User: Manuel Arzate [place], [facility] [place] 12:30 HPI - Fall General: Chief Complaint: Fall Stated Complaint: fall-right shoulder injury Time Seen by Provider: 06/02/20 11:11 Course Consultations: Consultation #1: Discussed the patient with Dr. Donovan Workman, ED physician at [facility] in [place]. He kindly accepted the patient to his service. Time: 13:20 Vital Signs: Vital signs: Vital Signs Temperature 97.6 F 06/02/20 11:00 Pulse Rate 71 06/02/20 11:20 Respiratory Rate 17 06/02/20 11:20 Blood Pressure 112/62 06/02/20 11:20 Pulse Oximetry 96 06/02/20 11:20 MDM - Fall MDM Narrative: Medical decision making narrative: Kindly reviewed the midlevel providers note for complete history and physical examination. I evaluated this patient and agree with her findings. This unfortunate gentleman had an 8 foot fall and sustained pretty significant injuries including flail chest on the right with at least 8 ribs fractured in 2 separate areas, pulmonary laceration, small hemothorax, small pneumothorax and pulmonary contusion. Because of the nature of the injury he is being transferred to a tertiary health institution and he will be transferred to [facility]. He remained clinically stable in the emergency department. Lab Data: Labs: Lab Results 06/02/20 06/02/20 06/02/20 Range/Units 11:40 11:40 11:40 WBC 4.9 (4.0-10.0) 10^3/ uL RBC 4.14 (4.1-5.3) 10^6/u L Hgb 13.0 (11.7-16.6) g/dL Hct 39.2 L (42.0-52.0) % MCV 94.7 H (80-94) fL MCH 31.4 (28.0-34.0) pg MCHC 33.2 (30.0-36.0) g/dL RDW 15.2 H (12.1-15.1) % Plt Count 161 (130-400) 10^3/c mm MPV 10.2 (7.4-10.4) fL Neut % (Auto) 53.5 % Lymph % (Auto) 24.6 % [place] % (Auto) 17.0 % Eos % (Auto) 2.3 % Baso % (Auto) 1.8 % Neut # (Auto) 2.60 (1.8-7.7) 10^3/u L Lymph # (Auto) 1.2 (0.8-4.8) 10^3/u L [place] # (Auto) 0.8 (0.2-0.9) 10^3/u L Eos # (Auto) 0.1 (0.0-0.8) 10^3/u L Baso # (Auto) 0.1 (0.0-0.1) 10^3/u L Nucleated RBC % (a uto) 0 % Nucleated RBCs # 0.0 /100WBC PT 13.60 (12.1-14.9) SECO NDS INR 1.01 (0.8-1.2) APTT 31.0 (23.9-36.7) SECO NDS Sodium 136 (136-145) mmol/L Potassium 3.8 (3.5-5.1) mmol/L Chloride 101 (98-107) mmol/L Carbon Dioxide 25 (22-29) mmol/L Anion Gap 13.8 (5-19) BUN 18 (8-23) mg/dL Creatinine 1.3 H (0.7-1.2) mg/dL GFR Calculation Not Reportable Glucose 120 H (65-115) mg/dL Calculated Osmolal ity 285 (285-295) mOsm/k g Calcium 8.9 (8.5-10.5) mg/dL Total Bilirubin 0.6 (0.15-1.2) mg/dL AST 31 (0-40) U/L ALT 19 (0-41) U/L Alkaline Phosphata se 67 (40-130) IU/L Total Protein 7.0 (6.6-8.7) g/dL Albumin 4.1 (3.5-5.2) g/dL Globulin 2.9 (1.3-4.6) g/dL Discharge Plan Discharge Patient Disposition: Transfer to ED Clinical Impression: Closed flail chest, Right pulmonary contusion, Pulmonary laceration, Closed fracture of right clavicle, Fall from height of greater than 3 feet Condition: Stable Prescriptions: No Action Tylenol 325 mg Tablet 325 - 650 mg PO QID PRN (Reason: Pain) RF: 0 acyclovir 400 mg tablet 400 mg PO TID RF: 0 Revlimid 10 mg capsule See Rx Instructions .ROUTE .COMPLEX RF: 0 Ninlaro 4 mg capsule 4 mg PO Q7D RF: 0 Referrals: Ede Prado DO [Primary Care Provider] - Coding Level of Care Code ED Capsule Filling Machine Operator for g Fwd Exam Comprehensive
[2020-06-02 11:20] VITALS: BP 112/62; PULSE 71; RESP 17; O2SAT 96
--- NOTE | 2020-06-02 11:23 | CT_ITS ---
WS: [id number] CT CHEST WITH INTRAVENOUS CONTRAST HISTORY: fall 8 ft; R chest/rib pain TECHNIQUE: Contiguous 5 mm axial imaging performed on the thorax. Coronal and sagittal reformats are submitted. All CT scans at [facility] use at least one of these dose optimization techniq ues: automated exposure control; mA and/or kV adjustment per patient size (includes targeted exams wh ere dose is matched to clinical indication); or iterative reconstruction. CONTRAST: Omnipaque 300; 95 mL IV. DLP: 1027.19 mGy.cm COMPARISON: 05/27/2019 Lungs and central airway: Increased soft tissue along the intercostal muscles of the RIGHT chest cons istent with bleeding from multiple rib fractures. There is also a small layering RIGHT hemothorax. Th ere are a few tiny areas of subpleural are. Small foci of air in the posterior RIGHT lower lobe consi stent with a small contusion and laceration. This is at the site of a hemoperitoneum. LEFT lung is cl ear. Pulmonary contusions involving the RIGHT upper and lower lobes and along the RIGHT minor fissure . Heart and pericardium: Normal size heart with no pericardial effusion. Mediastinum and peter: No mediastinum or hilar adenopathy. Vessels: Mild atherosclerosis of aorta. Coronary artery calcifications. No mediastinal bleeding or he matoma. Chest wall and lower neck: There is extensive soft tissue infiltration thickening along the inferior neck to the RIGHT chest wall from the posttraumatic bleeding in the fractures. Upper abdomen: Negative. Osseous structures: There is a comminuted fracture involving the RIGHT clavicle with multiple spicula tions. There is adjacent soft tissue bleeding. No active extravasation is identified. Good enhancemen t of the subclavian and axillary artery with no extravasation. There is soft tissue hematoma surround ing the LEFT subclavian vein. Numerous rib fractures extend from the first rib to the eighth rib begi nning anteriorly and extending laterally and posteriorly. Several of these ribs are fractured in 2 pl aces consistent with a flail chest. I believe the second through seventh ribs are fractured in 2 [address]. No definite spine fracture is identified. CT/CT chest w con* [id number] IMPRESSION: 1. Right-sided flail chest with numerous consecutive rib fractures. Fractures extend from the first through eighth rib. The second through eighth ribs appear to be fractured in 2 [address]. 2. Moderate amount of bleeding within the chest wall at the rib fracture sites and a small RIGHT hemothorax. 3. Minimal pulmonary laceration at the RIGHT lung base. 4. Soft tissue injury and bleeding surrounding the displaced comminuted RIGHT clavicle fracture. This bleeding is within the soft tissues of the RIGHT suprac lavicular location. No definite extravascular extravasation or vascular injury on this examination. 5. There are a few areas of very minimal subpleural air which are probably pne umothoraces or air from the fractures. 6. Pulmonary contusion nondependent surfaces of the RIGHT upper and RIGHT lowe r lobe and along the minor fissure. Suspect tiny pleural effusion along the min or fissure also. Notified MAN Barone at 06/02/2020 1:02 PM.
--- NOTE | 2020-06-02 11:23 | XR_ITS ---
WS: [id number] Right shoulder, 3 views, 06/02/2020 Clinical Data: fall 8 ft; clavicular pain/deformity Comparison: None. Findings: There is a fracture of the junction of the middle and distal thirds of the right clavicle which is co mminuted. The shoulder joint is intact. The AC joint is normal. There is extrapleural thickening in t he superior aspect of the right pleural space which could represent a hematoma. No pneumothorax is seen. XR/XR shoulder RT min 2V* [id number] Impression: 1. Comminuted fracture lateral aspect right clavicle. 2. Extra pleural thickening in the superior aspect of the right pleural space w hich could represent a hematoma.
[2020-06-02] MEDS: ondansetron 2 mg/ML SDV 2 mL 4 MG IVP (11:40)
[2020-06-02] MEDS: morphine 4 mg/mL SDV 1 mL IVP (11:40)
[2020-06-02 11:50] LABS: Basophils # 0.1 10^3/uL (0.0-0.1); Basophils % 1.8 %; Eosinophils # 0.1 10^3/uL (0.0-0.8); Eosinophils % 2.3 %; Hematocrit 39.2 % (42.0-52.0); Lymphocytes # 1.2 10^3/uL (0.8-4.8); Lymphocytes % 24.6 %; Mean Corpuscular HGB Conc 33.2 g/dL (30.0-36.0); Mean Corpuscular Hemoglobin 31.4 pg (28.0-34.0); Mean Corpuscular Volume 94.7 fL (80-94); Mean Platelet Volume 10.2 fL (7.4-10.4); Monocytes # 0.8 10^3/uL (0.2-0.9); Neutrophils % 53.5 %; Nucleated Red Blood Cells % 0 %; Platelet Count 161 10^3/cmm (130-400); Red Blood Count 4.14 10^6/uL (4.1-5.3); Red Cell Distribution Width 15.2 % (12.1-15.1); White Blood Count 4.9 10^3/uL (4.0-10.0)
[2020-06-02 12:09] LABS: Alanine Aminotransferase 19 U/L (0-41); Albumin Level 4.1 g/dL (3.5-5.2); Alkaline Phosphatase 67 IU/L (40-130); Anion Gap 13.8 (5-19); Aspartate Amino Transferase 31 U/L (0-40); Blood Urea Nitrogen 18 mg/dL (8-23); Calcium 8.9 mg/dL (8.5-10.5); Carbon Dioxide 25 mmol/L (22-29); Chloride 101 mmol/L (98-107); Globulin 2.9 g/dL (1.3-4.6); Glucose 120 mg/dL (65-115); Osmolality Calculated 285 mOsm/kg (285-295); Potassium 3.8 mmol/L (3.5-5.1); Sodium 136 mmol/L (136-145); Total Bilirubin 0.6 mg/dL (0.15-1.2)
[2020-06-02] MEDS: iohexol 300 mg/mL 100 mL Btl IV (12:18)
--- NOTE | 2020-06-02 12:59 | CT_ITS ---
WS: [id number] CT HEAD NONCONTRAST HISTORY: 8 ft fall TECHNIQUE: Contiguous axial imaging performed through the brain in 2.5 mm imaging. Bone and soft tiss ue windows. Sagittal and coronal reformats reviewed. All CT scans at [facility] use at le ast one of these dose optimization techniques: automated exposure control; mA and/or kV adjustment pe r patient size (includes targeted exams where dose is matched to clinical indication); or iterative r econstruction. DLP: 969.89 mGy.cm COMPARISON: None available. Patient received IV contrast for the chest CT done earlier the same day. Focal areas of hemorrhage or subarachnoid or subdural blood would be obscured with this amount of enhancement. There are no large areas of hemorrhage. No large subdural hematomas. Moderate amount of decreased attenuation within the white matter from chronic ischemic disease. No herniation. Ventricles: Normal size with no hydrocephalus. Paranasal sinuses: As visualized are clear. Mastoid air cells: Well pneumatized. Calvarium and scalp: Skull is intact with no soft tissue edema or swelling. CT/CT head wo con* [id number] IMPRESSION: 1. No large areas of acute hemorrhage or edema. 2. Recent IV contrast injection for the chest CT would obscured small areas of hemorrhage. 3. No skull fracture.
--- NOTE | 2020-06-02 12:59 | CT_ITS ---
WS: [id number] CT THORACIC SPINE HISTORY: 8 ft fall TECHNIQUE: Contiguous 2.5 mm axial images are reviewed to thoracic spine. Images are reformatted in s agittal and coronal planes. All CT scans at [facility] use at least one of these dose opt imization techniques: automated exposure control; mA and/or kV adjustment per patient size (includes targeted exams where dose is matched to clinical indication); or iterative reconstruction. DLP: 2973.79 mGy.cm COMPARISON: None available. No acute thoracic spine fractures are identified. Disc spaces are slightly narrowed throughout. Spino us processes and transverse processes appear to be intact. No compression upon the cord. Again noted is a small RIGHT pneumothorax. Small layering RIGHT hemothorax and pulmonary laceration a t the RIGHT lung base. There is also a lucency noted adjacent to the descending aorta at the level of the LEFT hilum. Very suspicious for pneumothorax. This was not present on the CT from 06/13/2019. No rib fractures are noted on the LEFT. Patient has numerous rib fractures on the RIGHT which were descr ibed in the chest CT report. CT/CT thoracic spin wo con* [id number] IMPRESSION: 1. No thoracic spine fractures are identified. 2. Small bilateral pneumothoraces. 3. Small RIGHT hemothorax. 4. Patient has known multiple right-sided rib fractures described in the chest CT report. Notified MAN Barone at 06/02/2020 1:47 PM.
--- NOTE | 2020-06-02 12:59 | CT_ITS ---
WS: [id number] CT CERVICAL SPINE HISTORY: 8 ft fall TECHNIQUE: Contiguous 2.5 mm axial imaging performed through the entire cervical spine. Sagittal and coronal reformats also performed. All CT scans at [facility] use at least one of these do se optimization techniques: automated exposure control; mA and/or kV adjustment per patient size (inc ludes targeted exams where dose is matched to clinical indication); or iterative reconstruction. DLP: 769.74 mGy.cm COMPARISON: None available. Normal cervical alignment. Mild disc space narrowing at C5-6 and C6-7. No acute fractures. Craniocerv ical junction is normal. Facet joints remain aligned. Lateral masses of C1 and C2 are normal. The odo ntoid is intact. No cervical spine fractures. C2-C3: There is shallow central disc protrusion. C3-C4: Bilateral facet arthritis and foraminal narrowing. Shallow central protrusion. C4-C5: Bilateral facet arthritis and foraminal narrowing. Shallow central protrusion. C5-C6: Mild osteophytic ridging with mild bilateral foraminal stenosis. Lytic areas in each facet lexii nt are probably degenerative. C6-C7: Mild osteophytic ridging with bilateral foraminal narrowing. C7-T1: Mild foraminal narrowing. Again noted are upper RIGHT rib fractures involving the first and second ribs. Soft tissue thickening in the intercostal muscles from the prior rib fractures with bleeding. CT/CT cervical spin wo con* [id number] IMPRESSION: 1. No acute cervical spine fracture. 2. Intercostal soft tissue bleeding from the rib fractures. First and second R IGHT rib fractures are again identified.
[2020-06-02 13:05] LABS: INR 1.01 (0.8-1.2)
[2020-06-02] MEDS: HYDROmorphone 1 mg/mL INJ 1 mL IVP (13:49)
== END 2020-06-02 14:29 ==
PROVIDERS: Emergency Provider Physician Assistant; PCP Family Medicine
DX: S42.001A Fracture of unspecified part of right clavicle, initial encounter for closed fracture (principal); S27.331A Laceration of lung, unilateral, initial encounter; S27.321A Contusion of lung, unilateral, initial encounter; S22.5XXA Flail chest, initial encounter for closed fracture; W13.2XXA Fall from, out of or through roof, initial encounter
CPT/HCPCS: 70450; 71260; 72125; 72128; 73030; 80053; 85025; 85610; 85730; 96374; 96375; 99285; J1170; J2270; J2405; Q9967

== ENCOUNTER 2020-06-14 05:38 | Outpatient (CLI) | payer MEDICARE, OTHER, SELFPAY ==
[2020-06-14 08:41] LABS: Basophils # 0.1 10^3/uL (0.0-0.1); Eosinophils # 0.4 10^3/uL (0.0-0.8); Eosinophils % 7.5 %; Hemoglobin 11.8 g/dL (11.7-16.6); Lymphocytes # 1.5 10^3/uL (0.8-4.8); Lymphocytes % 25.3 %; Mean Corpuscular HGB Conc 32.8 g/dL (30.0-36.0); Mean Corpuscular Hemoglobin 31.1 pg (28.0-34.0); Mean Corpuscular Volume 94.7 fL (80-94); Mean Platelet Volume 11.2 fL (7.4-10.4); Monocytes # 0.8 10^3/uL (0.2-0.9); Monocytes % 14.5 %; Neutrophils # 2.95 10^3/uL (1.8-7.7); Neutrophils % 51.4 %; Nucleated Red Blood Cells % 0 %; Platelet Count 110 10^3/cmm (130-400); Red Cell Distribution Width 14.7 % (12.1-15.1); White Blood Count 5.7 10^3/uL (4.0-10.0)
[2020-06-14 08:53] LABS: Alanine Aminotransferase 10 U/L (0-41); Albumin Level 3.7 g/dL (3.5-5.2); Alkaline Phosphatase 104 IU/L (40-130); Anion Gap 11.8 (5-19); Aspartate Amino Transferase 13 U/L (0-40); Blood Urea Nitrogen 15 mg/dL (8-23); Calcium 8.5 mg/dL (8.5-10.5); Carbon Dioxide 25 mmol/L (22-29); Chloride 103 mmol/L (98-107); Glucose 95 mg/dL (65-115); Osmolality Calculated 283 mOsm/kg (285-295); Potassium 3.8 mmol/L (3.5-5.1); Sodium 136 mmol/L (136-145); Total Bilirubin 0.5 mg/dL (0.15-1.2); Total Protein 6.7 g/dL (6.6-8.7)
== END 2020-06-14 05:39 | disposition home or self-care (01) ==
LOC: ONCMED 05:41
PROVIDERS: PCP Family Medicine; Visit Provider Internal Medicine Medical Oncology
DX: C90.00 Multiple myeloma not having achieved remission (principal)
CPT/HCPCS: 36415; 80053; 85025

== ENCOUNTER 2020-06-28 06:02 | Outpatient (CLI) | payer MEDICARE, OTHER, SELFPAY ==
[2020-06-28 15:02] LABS: Basophils # 0.1 10^3/uL (0.0-0.1); Basophils % 2.7 %; Eosinophils # 0.2 10^3/uL (0.0-0.8); Eosinophils % 4.6 %; Hematocrit 38.7 % (42.0-52.0); Hemoglobin 12.5 g/dL (11.7-16.6); Lymphocytes # 1.2 10^3/uL (0.8-4.8); Lymphocytes % 32.2 %; Mean Corpuscular HGB Conc 32.3 g/dL (30.0-36.0); Mean Corpuscular Hemoglobin 30.6 pg (28.0-34.0); Mean Corpuscular Volume 94.6 fL (80-94); Mean Platelet Volume 10.7 fL (7.4-10.4); Monocytes # 0.7 10^3/uL (0.2-0.9); Monocytes % 19.5 %; Neutrophils % 40.7 %; Nucleated Red Blood Cells % 0 %; Platelet Count 192 10^3/cmm (130-400); Red Blood Count 4.09 10^6/uL (4.1-5.3); Red Cell Distribution Width 14.6 % (12.1-15.1); White Blood Count 3.7 10^3/uL (4.0-10.0)
[2020-06-28 15:20] LABS: Alanine Aminotransferase 9 U/L (0-41); Alkaline Phosphatase 129 IU/L (40-130); Aspartate Amino Transferase 14 U/L (0-40); Blood Urea Nitrogen 13 mg/dL (8-23); Calcium 8.9 mg/dL (8.5-10.5); Carbon Dioxide 26 mmol/L (22-29); Chloride 101 mmol/L (98-107); Globulin 3.1 g/dL (1.3-4.6); Glucose 88 mg/dL (65-115); Osmolality Calculated 282 mOsm/kg (285-295); Sodium 136 mmol/L (136-145); Total Bilirubin 0.5 mg/dL (0.15-1.2); Total Protein 7.1 g/dL (6.6-8.7)
[2020-06-28] MEDS: denosumab 120 mg SDV SUBCUT (16:35)
--- NOTE | 2020-07-02 10:43 | ONC FU_ITS ---
Dr. Sanches Patient Follow-Up Note Patient: Nick Sheldon Unit #: [id number]: 1950 Dicatated By: Olu Sanches M.D.Date of Visit:Jun 28, 2020 Onc Med Follow-up/Prog Note Chief Complaint: Myeloma. History of Present Illness: This is a 70 year-old man with IgA lambda myeloma. He had been seen by Dr. Prado in April 2019 to establish primary care. His initial evaluation included a comprehensive metabolic profile on 04/13/2019 which showed elevated BUN and creatinine at 19 and 1.43 mg/dL and elevation of the calculated serum globulin at 4.4 g/dL. His further laboratory studies from 04/24/2019 included CBC showing hemoglobin 11.2 g with hematocrit 34%. The red cell indices were normal. The white blood cell count was 5200 and the platelet count was 185,000. His basic metabolic profile showed borderline renal function with BUN 19 and creatinine 1.46 mg/dL. Calcium was normal at 9.7 mg/dL. Protein electrophoresis showed an IgA lambda monoclonal protein which quantitated at 2.6 g/dL. A second M band measured 0.2 g/dL. The total protein was 8.0 g/dL and the albumin measured 3.8 g/dL. The quantitative immunoglobulin levels included IgA 3025 mg/dL, IgG 299 mg/dL, and IgM 14 mg/dL. The free light chain assay showed elevated lambda light chain at 39.1 mg/L with normal kappa light chain at 5.1 mg/L and decreased kappa/lambda ratio at 0.13. I had seen him initially on 05/26/2019. His further evaluation included a 24-hour urine protein electrophoresis which showed no monoclonal protein and a skeletal survey which showed no evidence for lytic bone lesions. He was then referred to [facility]. His bone marrow aspiration/biopsy on 06/05/2019 showed increased lambda restricted plasma cells estimated at 60% of the overall cellularity, consistent with plasma cell neoplasm. 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 Staging PET/CT on 06/13/2019 showed no evidence for active malignancy. He had further evaluation with MRI of the spine on 06/25/2019. The cervical spine showed some degenerative changes but no evidence for metastatic disease. There was mild heterogeneity throughout the vertebral bodies of the thoracic spine. There was no evidence for a destructive process, but involvement with myeloma was not excluded. There was also mild heterogeneity throughout the lumbar spine. Also noted was a mild [id number] pattern and there was a hypointense lesion noted along the superior endplate of the L2 vertebral body. That lesion did show enhancement and there was additional very mild enhancement involving the sacrum. Overall, the findings were suspicious for involvement with myeloma. With those findings, along with the anemia and renal impairment, he was recommended to begin treatment with carfilzomib/Revlimid/dexamethasone. He began cycle 1 of carfilzomib/Revlimid/dexamethasone on 08/05/2019. Due to the impaired renal function, the Revlimid was administered at a reduced dosage of 15 mg daily on a 21/28-day schedule. His 1st cycle was complicated by development of skin eruption, which improved with stopping the Revlimid. However, he was able to restart the Revlimid with no recurrence of the eruption. He continued with cycle 2 on 09/02/2019. His repeat protein electrophoresis at that time showed a decrease in the M protein to 0.9 g/dL. During that cycle, the Revlimid was again put on hold at day 8 due to a decrease in the neutrophil count and the platelet count. He continued with cycle 3 on 09/30/2019 and with cycle 4 on 10/28/2019. On his repeat protein electrophoresis studies prior to starting cycle 4 his M protein was undetectable. His IgA level had decreased to 61 mg/dL. He then underwent high-dose melphalan/autologous stem cell transplant at [facility] on 12/24/2019. He had his day 100 follow-up visit at [facility] on 04/05/2020. His bone marrow aspiration/biopsy showed normocellular bone marrow with multilineage hematopoiesis and no increase in plasma cells. He then began on dual maintenance therapy with lenalidomide 10 mg daily on a 21/28-day schedule together with ixazomib 4 mg on days 1, 8, and 15 of a 28-day schedule. He has otherwise been in excellent health. He has had no other ongoing medical illnesses. He is a non-smoker. INTERIM HISTORY: He is seen for a follow-up visit. He has been feeling pretty good generally. His main complaint is that he recently had a fall at home and fractured his right clavicle and 8 ribs. He has been able to continue his maintenance therapy. His eyes were getting watery and red with the ixazomib, but he has been able to manage that adequately with Visine. He has pretty good energy. He has had normal activity other than the recent injury. He has good appetite. He has no fever or night sweats. He does report having slightly blurry vision. He has some allergy related sinus symptoms. He has not had mouth sores. He has no shortness of breath or cough. He has a little diarrhea with the ixazomib, but just for 1 to 2 days afterwards. He has no other GI or complaints. He has no other joint or bone pain. He does not complain of headache or dizziness. He has a little bit of numbness in his left foot. He has no other focal neurologic symptoms. Medications: Acyclovir 1 Tablet (of 400 mg) Oral t.i.d., LORazepam 0.5 - 1 Tablet (of 1 mg) Oral t.i.d. PRN, Prochlorperazine Maleate 1 Tablet (of 10 mg) Oral q 4 hours PRN Allergies: No Known Allergies. Vital Signs: Performed on Jun 28, 2020 15:37 Height - 74.00 in Weight - 180.6 lbs (LOW) BSA - 2.08 sq.m BMI - 23.19 Temperature - 97.3 F (LOW) Pulse - 89 /min Respiration - 18 /min BP - 137/71 mm(hg) O2 Sat - 98 % Pain - 1 Fatigue - 2 Physical Examination: Constitutional - He looks good generally, Eyes - Sclerae nonicteric. Conjunctivae clear, ENMT - No lesions noted in the oral cavity, Hematologic/Lymphatic - No cervical, clavicular, or axillary adenopathy, Respiratory - Lungs are clear with good air movement bilaterally, Cardiovascular - Heart rhythm is regular. There is no murmur, gallop, or rub noted, Abdomen - Soft. Liver and spleen are not enlarged. There is no abdominal mass or ascites noted and there is no inguinal adenopathy, Extremities - No edema, Neurologic - No focal neurologic deficits noted. Lab/Imaging: Test performed on Jun 28, 2020 14:09 Sodium 136 mmol/L Potassium 4.0 mmol/L Chloride 101 mmol/L CO2 26 mmol/L Anion Gap 13.0 BUN 13 mg/dL Creatinine 0.9 mg/dL Cr Clearance (Est) 87.23 mL/min Glucose 88 mg/dL Osmolality - Calculated 282 mOsm/kg Calcium 8.9 mg/dL Protein, Total 7.1 g/dL Albumin 4.0 g/dL Globulin 3.1 g/dL Bilirubin, Total 0.5 mg/dL ALT (SGPT) 9 U/L AST (SGOT) 14 U/L Alkaline Phosphatase 129 IU/L WBC 3.7 10 3/uL RBC 4.09 10 6/uL HGB 12.5 g/dL HCT 38.7 % MCV 94.6 fL MCH 30.6 pg MCHC 32.3 g/dL RDW 14.6 % Platelet Count 192 10 3/cmm MPV 10.7 fL Neutrophils 1.50 10 3/uL Lymphocytes 1.2 10 3/uL Monocytes 0.7 10 3/uL Eosinophils 0.2 10 3/uL Basophils 0.1 10 3/uL Neutrophil % 40.7 % Lymphocyte % 32.2 % Monocyte % 19.5 % Eosinophil % 4.6 % Basophils % 2.7 % NRBC % 0 % Problem List: 1. IgA lambda myeloma. He had mild anemia and mild renal impairment at initial diagnosis in May 2019. Bone marrow aspiration/biopsy showed involvement with lambda restricted plasma cells, estimated at 60% of the marrow cellularity, consistent with plasma cell neoplasm. There was no evidence for lytic bone disease on a skeletal survey or PET/CT, but MRI showed subtle changes in the thoracic and lumbar spine which were suspicious for involvement with myeloma. 2. 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 Problems Addressed with this Encounter and Plan: Patient with IgA lambda myeloma. He had mild anemia and mild renal impairment at initial diagnosis in May 2019. Bone marrow aspiration/biopsy showed involvement with lambda restricted plasma cells, estimated at 60% of the marrow cellularity, consistent with plasma cell neoplasm. 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 There was no evidence for lytic bone disease on a skeletal survey or PET/CT, but MRI showed subtle changes in the thoracic and lumbar spine which were suspicious for involvement with myeloma. He began treatment with carfilzomib/Revlimid/dexamethasone on 08/05/2019. Due to the impaired renal function, the Revlimid was initiated at a reduced dosage of 15 mg daily on a 21/28-day schedule. During the first cycle his Revlimid was interrupted due to a skin eruption, but he was able to resume treatment with no recurrence of the eruption. During cycle 2 the Revlimid was put on hold at day 8 due to a decrease in the neutrophil count and the platelet count. The carfilzomib and dexamethasone were given on schedule and with no reductions. He then continued with cycle 3 on 09/30/2019 and with cycle 4 on 10/28/2019. He had a very good response to the treatment with his repeat protein electrophoresis at that point showing no detectable monoclonal protein and with his IgA level decreasing to 61 mg/dL compared to a pretreatment level of 3025 mg/dL. On 12/24/2019 he underwent high-dose melphalan/stem cell transplant at [facility]. He had an uneventful recovery following that procedure. His day 100 bone marrow aspiration/biopsy on 04/05/2020 showed normal cellular marrow with no increase in plasma cells. He then began doing maintenance therapy with lenalidomide 10 mg daily on a 21/28-day schedule together with ixazomib 4 mg on days 1, 8, and 15 of a 28-day schedule. Thus far he has been tolerating treatment with acceptable toxicity. He did have a recent fall at home sustaining fractures to his right clavicle and 8 ribs. He has otherwise been doing well clinically. He will continue his maintenance therapy as above. He will be due now to start his vaccination schedule, as he is 6 months out from his transplant. He will be scheduled for a follow-up visit in 1 month. Signed By: Olu Sanches M.D. <<Signature on File>>
== END 2020-06-28 06:03 | disposition home or self-care (01) ==
LOC: ONCMED 06:04
PROVIDERS: PCP Family Medicine; Visit Provider Internal Medicine Medical Oncology
DX: C90.00 Multiple myeloma not having achieved remission (principal); Z94.84 Stem cells transplant status; Z79.899 Other long term (current) drug therapy; S42.001D Fracture of unspecified part of right clavicle, subsequent encounter for fracture with routine healing; S22.49XD Multiple fractures of ribs, unspecified side, subsequent encounter for fracture with routine healing; W19.XXXD Unspecified fall, subsequent encounter
CPT/HCPCS: 36415; 80053; 85025; 96372; 99214; J0897

== ENCOUNTER → 2020-07-14 08:10 | Outpatient (BNVA) | payer MEDICARE, OTHER, SELFPAY | PROVIDERS: PCP Family Medicine; Visit Provider Orthopaedic Surgery | DX: S42.001A Fracture of unspecified part of right clavicle, initial encounter for closed fracture (principal); W19.XXXA Unspecified fall, initial encounter; X58.XXXA Exposure to other specified factors, initial encounter | CPT/HCPCS: 73000 ==

== ENCOUNTER 2020-07-25 08:04 | Outpatient (CLI) | payer MEDICARE, OTHER, SELFPAY ==
[2020-07-25 08:40] LABS: Basophils # 0.1 10^3/uL (0.0-0.1); Basophils % 2.4 %; Eosinophils # 0.2 10^3/uL (0.0-0.8); Eosinophils % 6.4 %; Hematocrit 39.5 % (42.0-52.0); Hemoglobin 12.8 g/dL (11.7-16.6); Lymphocytes # 1.2 10^3/uL (0.8-4.8); Lymphocytes % 39.2 %; Mean Corpuscular HGB Conc 32.4 g/dL (30.0-36.0); Mean Corpuscular Hemoglobin 31.3 pg (28.0-34.0); Mean Corpuscular Volume 96.6 fL (80-94); Mean Platelet Volume 10.2 fL (7.4-10.4); Monocytes # 0.6 10^3/uL (0.2-0.9); Monocytes % 18.9 %; Neutrophils % 32.8 %; Nucleated Red Blood Cells % 0 %; Platelet Count 156 10^3/cmm (130-400); Red Blood Count 4.09 10^6/uL (4.1-5.3); Red Cell Distribution Width 15.7 % (12.1-15.1)
[2020-07-25 08:57] LABS: Neutrophils # 0.97 10^3/uL (1.8-7.7)
[2020-07-25 09:02] LABS: Alanine Aminotransferase 8 U/L (0-41); Albumin Level 3.9 g/dL (3.5-5.2); Alkaline Phosphatase 87 IU/L (40-130); Anion Gap 12.2 (5-19); Aspartate Amino Transferase 14 U/L (0-40); Blood Urea Nitrogen 11 mg/dL (8-23); Calcium 8.1 mg/dL (8.5-10.5); Carbon Dioxide 26 mmol/L (22-29); Chloride 106 mmol/L (98-107); Globulin 2.5 g/dL (1.3-4.6); Glucose 74 mg/dL (65-115); Osmolality Calculated 288 mOsm/kg (285-295); Potassium 4.2 mmol/L (3.5-5.1); Sodium 140 mmol/L (136-145); Total Bilirubin 0.6 mg/dL (0.15-1.2); Total Protein 6.4 g/dL (6.6-8.7)
--- NOTE | 2020-08-07 01:08 | ONC FU_ITS ---
[facility] Patient Note Patient: Nick Sheldon Unit #: [id number]: 1950 Dictated By: Michael LaguerreDate of Visit: Jul 25, 2020 Onc MED Follow-Up/Prog Note Chief Complaint: Myeloma. History of Present Illness: Mr Sheldon is a 70 year-old man with IgA lambda myeloma. He had been seen by Dr. Prado in April 2019 to establish primary care. His initial evaluation included a comprehensive metabolic profile on 04/13/2019 which showed elevated BUN and creatinine at 19 and 1.43 mg/dL and elevation of the calculated serum globulin at 4.4 g/dL. His further laboratory studies from 04/24/2019 included CBC showing hemoglobin 11.2 g with hematocrit 34%. The red cell indices were normal. The white blood cell count was 5200 and the platelet count was 185,000. His basic metabolic profile showed borderline renal function with BUN 19 and creatinine 1.46 mg/dL. Calcium was normal at 9.7 mg/dL. Protein electrophoresis showed an IgA lambda monoclonal protein which quantitated at 2.6 g/dL. A second M band measured 0.2 g/dL. The total protein was 8.0 g/dL and the albumin measured 3.8 g/dL. The quantitative immunoglobulin levels included IgA 3025 mg/dL, IgG 299 mg/dL, and IgM 14 mg/dL. The free light chain assay showed elevated lambda light chain at 39.1 mg/L with normal kappa light chain at 5.1 mg/L and decreased kappa/lambda ratio at 0.13. Dr Sanches had seen him initially on 05/26/2019. His further evaluation included a 24-hour urine protein electrophoresis which showed no monoclonal protein and a skeletal survey which showed no evidence for lytic bone lesions. He was then referred to [facility]. His bone marrow aspiration/biopsy on 06/05/2019 showed increased lambda restricted plasma cells estimated at 60% of the overall cellularity, consistent with plasma cell neoplasm. 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 Staging PET/CT on 06/13/2019 showed no evidence for active malignancy. He had further evaluation with MRI of the spine on 06/25/2019. The cervical spine showed some degenerative changes but no evidence for metastatic disease. There was mild heterogeneity throughout the vertebral bodies of the thoracic spine. There was no evidence for a destructive process, but involvement with myeloma was not excluded. There was also mild heterogeneity throughout the lumbar spine. Also noted was a mild [id number] pattern and there was a hypointense lesion noted along the superior endplate of the L2 vertebral body. That lesion did show enhancement and there was additional very mild enhancement involving the sacrum. Overall, the findings were suspicious for involvement with myeloma. With those findings, along with the anemia and renal impairment, he was recommended to begin treatment with carfilzomib/Revlimid/dexamethasone. He began cycle 1 of carfilzomib/Revlimid/dexamethasone on 08/05/2019. Due to the impaired renal function, the Revlimid was administered at a reduced dosage of 15 mg daily on a 21/28-day schedule. His 1st cycle was complicated by development of skin eruption, which improved with stopping the Revlimid. However, he was able to restart the Revlimid with no recurrence of the eruption. He continued with cycle 2 on 09/02/2019. His repeat protein electrophoresis at that time showed a decrease in the M protein to 0.9 g/dL. During that cycle, the Revlimid was again put on hold at day 8 due to a decrease in the neutrophil count and the platelet count. He continued with cycle 3 on 09/30/2019 and with cycle 4 on 10/28/2019. On his repeat protein electrophoresis studies prior to starting cycle 4 his M protein was undetectable. His IgA level had decreased to 61 mg/dL. He then underwent high-dose melphalan/autologous stem cell transplant at [facility] on 12/24/2019. He had his day 100 follow-up visit at [facility] on 04/05/2020. His bone marrow aspiration/biopsy showed normocellular bone marrow with multilineage hematopoiesis and no increase in plasma cells. He then began on dual maintenance therapy with lenalidomide 10 mg daily on a 21/28-day schedule together with ixazomib 4 mg on days 1, 8, and 15 of a 28-day schedule. He has otherwise been in excellent health. He has had no other ongoing medical illnesses. He is a non-smoker. INTERIM HISTORY: Mr Sheldon is here today for a scheuduled follow-up visit. He has been feeling pretty good generally. His main complaint is that he recently had a fall at home and fractured his right clavicle and 8 ribs. He has been able to continue his maintenance therapy. His eyes were getting watery and red with the ixazomib, but he has been able to manage that adequately with Visine. He states overall he is doing well. He denies any fever or chills. He is due to resume his immunizations but his ANC today is 970. I have asked him to wait and recheck his labs in 2-week and will consider the immunizations at that time. He is due to restart his Ninlaro tonight. He did resume his Revlimid today. He states he has had a little bit of diarrhea but that is well controlled. His appetite is good his energy is good. He states that his ribs to limit him some but overall he is doing much better. He denies any other bone pain. Shortness of breath or orthopnea. He denies any hemoptysis. He denies any peripheral neuropathy. His ECOG is 0. Past Medical History: He has had ongoing medical illnesses. Past Surgical History: Covid #2 in 2020 COVID VAC in 2020 Colonoscopy in 2008 Allergies: No Known Allergies. Medications: Acyclovir 1 Tablet (of 400 mg) Oral t.i.d. LORazepam 0.5 - 1 Tablet (of 1 mg) Oral t.i.d. PRN Prochlorperazine Maleate 1 Tablet (of 10 mg) Oral q 4 hours PRN Family History: Mr. Sheldon's mother is alive. Mr. Sheldon's father at age 79: prostate cancer. Mr. Sheldon has 2 brothers: 2 alive. He has 1 sister who is . Father of prostate cancer at age 79. Mother is still living at age 94 and is in reasonably good health. A sister with complications of mental retardation. Two brothers are still living. One has valvular heart disease. Social History: Mr. Sheldon is and he is retired. Mr. Sheldon has never smoked. He has no history of drinking. Mr. Sheldon reports the following support systems: lives with spouse, significant other, family, or friends, lives in own house, supportive family/friends willing to assist with needs, and adequate transportation available for expected visits. His diet consists of regular meals. He indicates his activity level as: regular exercise. 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 He is a non-smoker. He does not drink alcohol. Review Of Symptoms: Vital Signs: Performed on Jul 25, 2020 09:49 Height - 74.00 in Weight - 185.4 lbs (HIGH) BSA - 2.10 sq.m BMI - 23.80 Temperature - 98.1 F (LOW) Pulse - 66 /min Respiration - 18 /min BP - 173/77 mm(hg) (HIGH) O2 Sat - 94 % (LOW) Pain - 3 Fatigue - 0,0 - Fully active, able to carry on all predisease activities without restrictions. (ECOG) Physical Examination: Constitutional Alert, oriented, no acute distress. Skin pink, warm and dry. Head Normocephalic; atraumatic. Eyes Conjunctivae and sclerae are clear and without icterus. Pupils are reactive and equal. ENMT No oral exudates, ulcers, masses, thrush or mucositis. Oropharynx clear. Tongue normal. Neck Supple without masses or thyromegaly. No jugular venous distension. Hematologic/Lymphatic No petechiae or purpura. Respiratory Lungs are clear to auscultation without rhonchi or wheezing. Cardiovascular Regular rate and rhythm of heart without murmurs,clicks, gallops or rubs. Abdomen Non-tender, non-distended, no masses or ascites. Good bowel sounds noted in all quads. No guarding or rebound tenderness. No pulsatile masses. Back/Spine Non-tender to palpation. Extremities No visible deformities, no cyanosis, clubbing or edema. Musculoskeletal No tenderness or swelling, normal range of motion without obvious weakness. Integumentary No rashes or lesions. Neurologic No sensory or motor deficits, normal cerebellar function, normal gait. Psychiatric Alert and oriented times three. Coherent speech. Verbalizes understanding of our discussions today. Laboratory:Test performed on Jul 25, 2020 08:20 Sodium 140 mmol/L Potassium 4.2 mmol/L Chloride 106 mmol/L CO2 26 mmol/L Anion Gap 12.2 BUN 11 mg/dL Creatinine 0.9 mg/dL Cr Clearance (Est) 89.55 mL/min Glucose 74 mg/dL Osmolality - Calculated 288 mOsm/kg Calcium 8.1 mg/dL Protein, Total 6.4 g/dL Albumin 3.9 g/dL Globulin 2.5 g/dL Bilirubin, Total 0.6 mg/dL ALT (SGPT) 8 U/L AST (SGOT) 14 U/L Alkaline Phosphatase 87 IU/L WBC 3.0 10 3/uL RBC 4.09 10 6/uL HGB 12.8 g/dL HCT 39.5 % MCV 96.6 fL MCH 31.3 pg MCHC 32.4 g/dL RDW 15.7 % Platelet Count 156 10 3/cmm MPV 10.2 fL Neutrophils 0.97 10 3/uL Lymphocytes 1.2 10 3/uL Monocytes 0.6 10 3/uL Eosinophils 0.2 10 3/uL Basophils 0.1 10 3/uL Neutrophil % 32.8 % Lymphocyte % 39.2 % Monocyte % 18.9 % Eosinophil % 6.4 % Basophils % 2.4 % NRBC % 0 % Test performed on May 24, 2020 12:05 eGFR 66.2 mL/min Test performed on Feb 23, 2020 14:22 ABO & Rh Type # 2 Test Not Performed NO SPECIMEN ST Test performed on Feb 23, 2020 13:40 Anti-D Positive Blood Type OP Antibody Screen (Gel) NEGATIVE Impression: 1. IgA lambda myeloma. He had mild anemia and mild renal impairment at initial diagnosis in May 2019. Bone marrow aspiration/biopsy showed involvement with lambda restricted plasma cells, estimated at 60% of the marrow cellularity, consistent with plasma cell neoplasm. There was no evidence for lytic bone disease on a skeletal survey or PET/CT, but MRI showed subtle changes in the thoracic and lumbar spine which were suspicious for involvement with myeloma. 2. 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 Plan: Patient with IgA lambda myeloma. He had mild anemia and mild renal impairment at initial diagnosis in May 2019. Bone marrow aspiration/biopsy showed involvement with lambda restricted plasma cells, estimated at 60% of the marrow cellularity, consistent with plasma cell neoplasm. 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 There was no evidence for lytic bone disease on a skeletal survey or PET/CT, but MRI showed subtle changes in the thoracic and lumbar spine which were suspicious for involvement with myeloma. He began treatment with carfilzomib/Revlimid/dexamethasone on 08/05/2019. Due to the impaired renal function, the Revlimid was initiated at a reduced dosage of 15 mg daily on a 21/28-day schedule. During the first cycle his Revlimid was interrupted due to a skin eruption, but he was able to resume treatment with no recurrence of the eruption. During cycle 2 the Revlimid was put on hold at day 8 due to a decrease in the neutrophil count and the platelet count. The carfilzomib and dexamethasone were given on schedule and with no reductions. He then continued with cycle 3 on 09/30/2019 and with cycle 4 on 10/28/2019. He had a very good response to the treatment with his repeat protein electrophoresis at that point showing no detectable monoclonal protein and with his IgA level decreasing to 61 mg/dL compared to a pretreatment level of 3025 mg/dL. On 12/24/2019 he underwent high-dose melphalan/stem cell transplant at [facility]. He had an uneventful recovery following that procedure. His day 100 bone marrow aspiration/biopsy on 04/05/2020 showed normal cellular marrow with no increase in plasma cells. He then began doing maintenance therapy with lenalidomide 10 mg daily on a 21/28-day schedule together with ixazomib 4 mg on days 1, 8, and 15 of a 28-day schedule. Thus far he has been tolerating treatment with acceptable toxicity. He did have a recent fall at home sustaining fractures to his right clavicle and 8 ribs. He has otherwise been doing well clinically. A. Proceed with cycle 4 Revlimid 10 mg daily day 1 through 21 out of a 28-day schedule. He started that this morning. B. Proceed with Ninlaro 4 mg days 1 8 and 15 of a 28-day schedule. He is to resume it tonight. C. Today's labs reviewed in detail discussed with Mr. Sheldon and a copy was given to him. WBC 3.0, hemoglobin 12.8, platelets 156,000, ANC is 970. Creatinine 0.9 LFTs are normal. Weight is stable at 185.4. D. He will be due in 2 weeks for denosumab. E. I have asked for CBC CMP at that time. We will review his labs to determine if he can proceed with his immunization schedule at that time. F. He is due to resume his post transplant vaccination schedule as he is 6 months out from his transplant. We will discuss with [facility] how we need to go about arranging this for him. I have asked him to delay today due to his ANC 970. G. He will continue on his antiviral with acyclovir 400 mg 3 times daily. H. Mr Sheldon was encouraged to contact us in the interim if questions or problems arise. I. We did discuss neutropenic precautions given his ANC is 970 today. He is asymptomatic. Signed By: Michael Laguerre-, AOCNP Olu Sanches MD <<Signature on File>>
== END 2020-07-25 08:05 | disposition home or self-care (01) ==
LOC: ONCMED 08:05
PROVIDERS: PCP Family Medicine; Visit Provider Internal Medicine Medical Oncology
DX: C90.00 Multiple myeloma not having achieved remission (principal); C79.51 Secondary malignant neoplasm of bone; D47.2 Monoclonal gammopathy; D70.1 Agranulocytosis secondary to cancer chemotherapy; T45.1X5A Adverse effect of antineoplastic and immunosuppressive drugs, initial encounter; Z79.899 Other long term (current) drug therapy
CPT/HCPCS: 80053; 85025; 99214

== ENCOUNTER 2020-08-08 06:00 | Outpatient (CLI) | payer MEDICARE, OTHER, SELFPAY ==
[2020-08-08 08:53] LABS: Basophils % 1.3 %; Eosinophils # 0.3 10^3/uL (0.0-0.8); Eosinophils % 9.9 %; Hematocrit 37.7 % (42.0-52.0); Lymphocytes % 31.6 %; Mean Corpuscular HGB Conc 31.8 g/dL (30.0-36.0); Mean Corpuscular Hemoglobin 31.3 pg (28.0-34.0); Mean Corpuscular Volume 98.4 fL (80-94); Mean Platelet Volume 12.4 fL (7.4-10.4); Monocytes # 0.5 10^3/uL (0.2-0.9); Monocytes % 17.3 %; Neutrophils # 1.24 10^3/uL (1.8-7.7); Neutrophils % 39.6 %; Nucleated Red Blood Cells % 0 %; Platelet Count 87 10^3/cmm (130-400); Red Blood Count 3.83 10^6/uL (4.1-5.3); Red Cell Distribution Width 15.9 % (12.1-15.1); White Blood Count 3.1 10^3/uL (4.0-10.0)
[2020-08-08 09:11] LABS: Alanine Aminotransferase 8 U/L (0-41); Albumin Level 3.8 g/dL (3.5-5.2); Alkaline Phosphatase 75 IU/L (40-130); Anion Gap 9.8 (5-19); Aspartate Amino Transferase 14 U/L (0-40); Blood Urea Nitrogen 12 mg/dL (8-23); Calcium 8.1 mg/dL (8.5-10.5); Carbon Dioxide 26 mmol/L (22-29); Chloride 104 mmol/L (98-107); Globulin 2.4 g/dL (1.3-4.6); Glucose 81 mg/dL (65-115); Immunoglobulin IGA 192 mg/dL (70-400); Immunoglobulin IGG 939 mg/dL (700-1600); Osmolality Calculated 281 mOsm/kg (285-295); Potassium 3.8 mmol/L (3.5-5.1); Sodium 136 mmol/L (136-145); Total Bilirubin 0.5 mg/dL (0.15-1.2); Total Protein 6.2 g/dL (6.6-8.7)
[2020-08-08 09:27] LABS: Immunoglobulin IGM 19 mg/dL (40-230)
[2020-08-08] MEDS: denosumab 120 mg SDV SUBCUT (09:30)
[2020-08-09 12:42] LABS: KAPPA LIGHT CHAIN, FREE, SERUM 21.2 mg/L (3.3-19.4); LAMBDA LIGHT CHAIN, FREE, SERU 12.5 mg/L (5.7-26.3)
[2020-08-09 13:47] LABS: ALBUMIN 3.6 g/dL (3.8-4.8); ALPHA 1 GLOBULIN 0.3 g/dL (0.2-0.3); ALPHA 2 GLOBULIN 0.6 g/dL (0.5-0.9); BETA 1 GLOBULIN 0.4 g/dL (0.4-0.6); BETA 2 GLOBULIN 0.3 g/dL (0.2-0.5); GAMMA GLOBULIN 0.9 g/dL (0.8-1.7)
== END 2020-08-08 06:01 | disposition home or self-care (01) ==
LOC: ONCMED 06:00
PROVIDERS: PCP Family Medicine; Visit Provider Internal Medicine Medical Oncology
DX: Z51.11 Encounter for antineoplastic chemotherapy (principal); C90.00 Multiple myeloma not having achieved remission; D47.2 Monoclonal gammopathy; D70.1 Agranulocytosis secondary to cancer chemotherapy; T45.1X5A Adverse effect of antineoplastic and immunosuppressive drugs, initial encounter; Z79.899 Other long term (current) drug therapy
CPT/HCPCS: 36415; 80053; 82784; 83883; 84155; 84165; 85025; 96372; J0897

== ENCOUNTER 2020-08-22 06:11 | Outpatient (CLI) | payer MEDICARE, OTHER, SELFPAY ==
[2020-08-22 08:10] LABS: Basophils # 0.1 10^3/uL (0.0-0.1); Basophils % 2.3 %; Eosinophils # 0.1 10^3/uL (0.0-0.8); Eosinophils % 4.5 %; Hematocrit 39.4 % (42.0-52.0); Hemoglobin 12.8 g/dL (11.7-16.6); Lymphocytes # 0.9 10^3/uL (0.8-4.8); Lymphocytes % 41.4 %; Mean Corpuscular HGB Conc 32.5 g/dL (30.0-36.0); Mean Corpuscular Hemoglobin 31.5 pg (28.0-34.0); Mean Platelet Volume 10.7 fL (7.4-10.4); Monocytes # 0.4 10^3/uL (0.2-0.9); Monocytes % 16.4 %; Neutrophils % 35.4 %; Nucleated Red Blood Cells % 0 %; Platelet Count 137 10^3/cmm (130-400); Red Blood Count 4.06 10^6/uL (4.1-5.3); Red Cell Distribution Width 16.4 % (12.1-15.1); White Blood Count 2.2 10^3/uL (4.0-10.0)
[2020-08-22 08:38] LABS: Alanine Aminotransferase 8 U/L (0-41); Alkaline Phosphatase 68 IU/L (40-130); Anion Gap 14.4 (5-19); Aspartate Amino Transferase 15 U/L (0-40); Blood Urea Nitrogen 22 mg/dL (8-23); Calcium 8.4 mg/dL (8.5-10.5); Carbon Dioxide 24 mmol/L (22-29); Chloride 106 mmol/L (98-107); Globulin 2.8 g/dL (1.3-4.6); Glucose 116 mg/dL (65-115); Immunoglobulin IGA 209 mg/dL (70-400); Immunoglobulin IGG 1061 mg/dL (700-1600); Osmolality Calculated 294 mOsm/kg (285-295); Potassium 4.4 mmol/L (3.5-5.1); Sodium 140 mmol/L (136-145); Total Bilirubin 0.7 mg/dL (0.15-1.2); Total Protein 6.8 g/dL (6.6-8.7)
[2020-08-22 08:44] LABS: Neutrophils # 0.78 10^3/uL (1.8-7.7)
[2020-08-22 08:54] LABS: Immunoglobulin IGM 20 mg/dL (40-230)
--- NOTE | 2020-08-22 18:36 | ONC FU_ITS ---
Dr. Sanches Patient Follow-Up Note Patient: Nick Sheldon Unit #: [id number]: [id number] Dicatated By: Olu Sanches M.D.Date of Visit:August 22, 2020 Onc Med Follow-up/Prog Note Chief Complaint: Myeloma. History of Present Illness: This is a 70 year-old man with IgA lambda myeloma. He had been seen by Dr. Prado in April 2019 to establish primary care. His initial evaluation included a comprehensive metabolic profile on 04/13/2019 which showed elevated BUN and creatinine at 19 and 1.43 mg/dL and elevation of the calculated serum globulin at 4.4 g/dL. His further laboratory studies from 04/24/2019 included CBC showing hemoglobin 11.2 g with hematocrit 34%. The red cell indices were normal. The white blood cell count was 5200 and the platelet count was 185,000. His basic metabolic profile showed borderline renal function with BUN 19 and creatinine 1.46 mg/dL. Calcium was normal at 9.7 mg/dL. Protein electrophoresis showed an IgA lambda monoclonal protein which quantitated at 2.6 g/dL. A second M band measured 0.2 g/dL. The total protein was 8.0 g/dL and the albumin measured 3.8 g/dL. The quantitative immunoglobulin levels included IgA 3025 mg/dL, IgG 299 mg/dL, and IgM 14 mg/dL. The free light chain assay showed elevated lambda light chain at 39.1 mg/L with normal kappa light chain at 5.1 mg/L and decreased kappa/lambda ratio at 0.13. I had seen him initially on 05/26/2019. His further evaluation included a 24-hour urine protein electrophoresis which showed no monoclonal protein and a skeletal survey which showed no evidence for lytic bone lesions. He was then referred to [facility]. His bone marrow aspiration/biopsy on 06/05/2019 showed increased lambda restricted plasma cells estimated at 60% of the overall cellularity, consistent with plasma cell neoplasm. 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 Staging PET/CT on 06/13/2019 showed no evidence for active malignancy. He had further evaluation with MRI of the spine on 06/25/2019. The cervical spine showed some degenerative changes but no evidence for metastatic disease. There was mild heterogeneity throughout the vertebral bodies of the thoracic spine. There was no evidence for a destructive process, but involvement with myeloma was not excluded. There was also mild heterogeneity throughout the lumbar spine. Also noted was a mild [id number] pattern and there was a hypointense lesion noted along the superior endplate of the L2 vertebral body. That lesion did show enhancement and there was additional very mild enhancement involving the sacrum. Overall, the findings were suspicious for involvement with myeloma. With those findings, along with the anemia and renal impairment, he was recommended to begin treatment with carfilzomib/Revlimid/dexamethasone. He began cycle 1 of carfilzomib/Revlimid/dexamethasone on 08/05/2019. Due to the impaired renal function, the Revlimid was administered at a reduced dosage of 15 mg daily on a 21/28-day schedule. His 1st cycle was complicated by development of skin eruption, which improved with stopping the Revlimid. However, he was able to restart the Revlimid with no recurrence of the eruption. He continued with cycle 2 on 09/02/2019. His repeat protein electrophoresis at that time showed a decrease in the M protein to 0.9 g/dL. During that cycle, the Revlimid was again put on hold at day 8 due to a decrease in the neutrophil count and the platelet count. He continued with cycle 3 on 09/30/2019 and with cycle 4 on 10/28/2019. On his repeat protein electrophoresis studies prior to starting cycle 4 his M protein was undetectable. His IgA level had decreased to 61 mg/dL. He then underwent high-dose melphalan/autologous stem cell transplant at [facility] on 12/24/2019. He had his day 100 follow-up visit at [facility] on 04/05/2020. His bone marrow aspiration/biopsy showed normocellular bone marrow with multilineage hematopoiesis and no increase in plasma cells. He was then recommended to begin dual maintenance therapy with lenalidomide 10 mg daily on a 21/28-day schedule together with ixazomib 4 mg on days 1, 8, and 15 of a 28-day schedule. He has otherwise been in excellent health. He has had no other ongoing medical illnesses. He is a non-smoker. INTERIM HISTORY: He began cycle 1 of maintenance with lenalidomide/ixazomib on 04/27/2020. He tolerated it well and he then continued cycles at 4-week intervals. He began cycle 4 on 07/25/2020. In the meantime, in May he had also began his vaccination schedule. He is seen for a follow-up visit. He is due now to begin his 5th cycle of maintenance therapy. He has been feeling pretty good generally. He does have some fatigue, but he has pretty much normal activity. His ECOG score is 0. His appetite has been good. He has not had fever. He has had some sweating at night, but that he just attributes to the hot weather. He has a little bit of sinus drainage. He does not have sore mouth or throat. He has no shortness of breath, cough, or chest pain. He has a little bit of diarrhea for 2 to 3 days after taking ixazomib. He has no other GI or complaints. He has a little bit of aching in his legs after activity, but not when he is up on them. He has no other joint or bone pain. He does not complain of headache or dizziness, and he has no focal neurologic symptoms. Medications: Acyclovir 1 Tablet (of 400 mg) Oral t.i.d., LORazepam 0.5 - 1 Tablet (of 1 mg) Oral t.i.d. PRN, Prochlorperazine Maleate 1 Tablet (of 10 mg) Oral q 4 hours PRN Allergies: No Known Allergies. Vital Signs: Performed on August 22, 2020 10:41 Height - 74.00 in Weight - 182.4 lbs (LOW) BSA - 2.09 sq.m BMI - 23.42 Temperature - 97.4 F (LOW) Pulse - 70 /min Respiration - 18 /min BP - 167/67 mm(hg) (HIGH) O2 Sat - 100 % Pain - 0 Fatigue - 0 Physical Examination: Constitutional - He looks good generally, Eyes - Sclerae nonicteric. Conjunctivae clear, ENMT - No lesions noted in the oral cavity, Hematologic/Lymphatic - No cervical, clavicular, or axillary adenopathy, Respiratory - Lungs are clear with good air movement bilaterally, Cardiovascular - Heart rhythm is regular. There is no murmur, gallop, or rub noted, Abdomen - Soft. Liver and spleen are not enlarged. There is no abdominal mass or ascites noted and there is no inguinal adenopathy, Extremities - No edema, Neurologic - No focal neurologic deficits noted. Lab/Imaging: Test performed on August 22, 2020 07:29 Sodium 140 mmol/L Potassium 4.4 mmol/L Chloride 106 mmol/L CO2 24 mmol/L Anion Gap 14.4 BUN 22 mg/dL Creatinine 1.0 mg/dL Cr Clearance (Est) 79.2900 mL/min Glucose 116 mg/dL Osmolality - Calculated 294 mOsm/kg Calcium 8.4 mg/dL Protein, Total 6.8 g/dL Albumin 4.0 g/dL Globulin 2.8 g/dL Bilirubin, Total 0.7 mg/dL ALT (SGPT) 8 U/L AST (SGOT) 15 U/L Alkaline Phosphatase 68 IU/L WBC 2.2 10 3/uL RBC 4.06 10 6/uL HGB 12.8 g/dL HCT 39.4 % MCV 97.0 fL MCH 31.5 pg MCHC 32.5 g/dL RDW 16.4 % Platelet Count 137 10 3/cmm MPV 10.7 fL Neutrophils 0.78 10 3/uL Lymphocytes 0.9 10 3/uL Monocytes 0.4 10 3/uL Eosinophils 0.1 10 3/uL Basophils 0.1 10 3/uL Neutrophil % 35.4 % Lymphocyte % 41.4 % Monocyte % 16.4 % Eosinophil % 4.5 % Basophils % 2.3 % NRBC % 0 % IgG 1061 mg/dL IgA 209 mg/dL IgM 20 mg/dL Problem List: 1. IgA lambda myeloma. He had mild anemia and mild renal impairment at initial diagnosis in May 2019. Bone marrow aspiration/biopsy showed involvement with lambda restricted plasma cells, estimated at 60% of the marrow cellularity, consistent with plasma cell neoplasm. There was no evidence for lytic bone disease on a skeletal survey or PET/CT, but MRI showed subtle changes in the thoracic and lumbar spine which were suspicious for involvement with myeloma. 2. 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 Problems Addressed with this Encounter and Plan: Patient with IgA lambda myeloma. He had mild anemia and mild renal impairment at initial diagnosis in May 2019. Bone marrow aspiration/biopsy showed involvement with lambda restricted plasma cells, estimated at 60% of the marrow cellularity, consistent with plasma cell neoplasm. 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 There was no evidence for lytic bone disease on a skeletal survey or PET/CT, but MRI showed subtle changes in the thoracic and lumbar spine which were suspicious for involvement with myeloma. He began treatment with carfilzomib/Revlimid/dexamethasone on 08/05/2019. Due to the impaired renal function, the Revlimid was initiated at a reduced dosage of 15 mg daily on a 21/28-day schedule. During the first cycle his Revlimid was interrupted due to a skin eruption, but he was able to resume treatment with no recurrence of the eruption. During cycle 2 the Revlimid was put on hold at day 8 due to a decrease in the neutrophil count and the platelet count. The carfilzomib and dexamethasone were given on schedule and with no reductions. He then continued with cycle 3 on 09/30/2019 and with cycle 4 on 10/28/2019. He had a very good response to the treatment with his repeat protein electrophoresis at that point showing no detectable monoclonal protein and with his IgA level decreasing to 61 mg/dL compared to a pretreatment level of 3025 mg/dL. On 12/24/2019 he underwent high-dose melphalan/stem cell transplant at [facility]. He had an uneventful recovery following that procedure. His day 100 bone marrow aspiration/biopsy on 04/05/2020 showed normal cellular marrow with no increase in plasma cells. On 04/27/2020 he began cycle 1 of maintenance therapy with lenalidomide 10 mg daily on a 21/28-day schedule together with ixazomib 4 mg on days 1, 8, and 15 of a 28-day schedule. He tolerated that treatment well, and he then continued cycles at 4-week intervals. He began cycle 4 on 07/25/2020. He has been doing well clinically, but he now has moderately severe neutropenia. His treatment will be put on hold and his blood counts will be monitored weekly. He will resume treatment with recommended dose reductions when he has adequate recovery. Signed By: Olu Sanches M.D. <<Signature on File>>
[2020-08-23 08:52] LABS: PROTEIN, TOTAL 6.4 g/dL (6.1-8.1)
[2020-08-23 11:37] LABS: KAPPA LIGHT CHAIN, FREE, SERUM 19.4 mg/L (3.3-19.4); KAPPA/LAMBDA LIGHT CHAINS FREE 1.75 (0.26-1.65); LAMBDA LIGHT CHAIN, FREE, SERU 11.1 mg/L (5.7-26.3)
[2020-08-23 13:18] LABS: ALBUMIN 3.6 g/dL (3.8-4.8); ALPHA 1 GLOBULIN 0.3 g/dL (0.2-0.3); ALPHA 2 GLOBULIN 0.8 g/dL (0.5-0.9); BETA 1 GLOBULIN 0.4 g/dL (0.4-0.6); BETA 2 GLOBULIN 0.3 g/dL (0.2-0.5)
== END 2020-08-22 06:12 | disposition home or self-care (01) ==
PROVIDERS: PCP Family Medicine; Visit Provider Internal Medicine Medical Oncology
DX: C90.00 Multiple myeloma not having achieved remission (principal); C79.51 Secondary malignant neoplasm of bone; D47.2 Monoclonal gammopathy; Z79.899 Other long term (current) drug therapy; Z92.21 Personal history of antineoplastic chemotherapy
CPT/HCPCS: 80053; 82784; 83883; 84155; 84165; 85025; 99214

== ENCOUNTER → 2020-08-25 08:16 | Outpatient (BNVA) | payer MEDICARE, OTHER, SELFPAY | PROVIDERS: PCP Family Medicine; Visit Provider Orthopaedic Surgery | DX: S42.031A Displaced fracture of lateral end of right clavicle, initial encounter for closed fracture (principal); X58.XXXA Exposure to other specified factors, initial encounter | CPT/HCPCS: 73000 ==

== ENCOUNTER 2020-08-31 06:17 | Outpatient (CLI) | payer MEDICARE, OTHER, SELFPAY ==
[2020-08-31 10:25] LABS: Basophils # 0.1 10^3/uL (0.0-0.1); Basophils % 1.6 %; Eosinophils # 0.1 10^3/uL (0.0-0.8); Eosinophils % 4.5 %; Hematocrit 41.6 % (42.0-52.0); Hemoglobin 13.7 g/dL (11.7-16.6); Lymphocytes # 1.2 10^3/uL (0.8-4.8); Mean Corpuscular HGB Conc 32.9 g/dL (30.0-36.0); Mean Corpuscular Hemoglobin 31.9 pg (28.0-34.0); Mean Platelet Volume 9.8 fL (7.4-10.4); Monocytes # 0.4 10^3/uL (0.2-0.9); Neutrophils # 1.34 10^3/uL (1.8-7.7); Neutrophils % 43.6 %; Nucleated Red Blood Cells % 0 %; Platelet Count 157 10^3/cmm (130-400); Red Blood Count 4.29 10^6/uL (4.1-5.3); Red Cell Distribution Width 15.9 % (12.1-15.1); White Blood Count 3.1 10^3/uL (4.0-10.0)
[2020-08-31 10:49] LABS: Alanine Aminotransferase 11 U/L (0-41); Albumin Level 4.1 g/dL (3.5-5.2); Alkaline Phosphatase 83 IU/L (40-130); Anion Gap 10.9 (5-19); Aspartate Amino Transferase 16 U/L (0-40); Blood Urea Nitrogen 14 mg/dL (8-23); Calcium 8.8 mg/dL (8.5-10.5); Carbon Dioxide 26 mmol/L (22-29); Chloride 101 mmol/L (98-107); Globulin 3.1 g/dL (1.3-4.6); Glucose 91 mg/dL (65-115); Immunoglobulin IGA 209 mg/dL (70-400); Immunoglobulin IGG 1104 mg/dL (700-1600); Osmolality Calculated 278 mOsm/kg (285-295); Potassium 3.9 mmol/L (3.5-5.1); Sodium 134 mmol/L (136-145); Total Bilirubin 0.5 mg/dL (0.15-1.2); Total Protein 7.2 g/dL (6.6-8.7)
[2020-08-31 11:01] LABS: Immunoglobulin IGM < 25 mg/dL (40-230)
[2020-09-01 14:52] LABS: KAPPA LIGHT CHAIN, FREE, SERUM 16.8 mg/L (3.3-19.4); KAPPA/LAMBDA LIGHT CHAINS FREE 1.85 (0.26-1.65); LAMBDA LIGHT CHAIN, FREE, SERU 9.1 mg/L (5.7-26.3)
[2020-09-03 11:13] LABS: PROTEIN, TOTAL 6.8 g/dL (6.1-8.1)
[2020-09-05 15:32] LABS: ALPHA 1 GLOBULIN 0.3 g/dL (0.2-0.3); ALPHA 2 GLOBULIN 0.8 g/dL (0.5-0.9); BETA 1 GLOBULIN 0.4 g/dL (0.4-0.6); BETA 2 GLOBULIN 0.4 g/dL (0.2-0.5)
== END 2020-08-31 06:18 | disposition home or self-care (01) ==
LOC: ONCMED 06:19
PROVIDERS: PCP Family Medicine; Visit Provider Internal Medicine Medical Oncology
DX: C90.00 Multiple myeloma not having achieved remission (principal); Z79.899 Other long term (current) drug therapy
CPT/HCPCS: 36415; 80053; 82784; 83883; 84155; 84165; 85025

== ENCOUNTER → 2020-09-08 14:18 | Outpatient (BNVA) | payer MEDICARE, OTHER, SELFPAY | PROVIDERS: PCP Family Medicine; Visit Provider Orthopaedic Surgery | DX: S42.001A Fracture of unspecified part of right clavicle, initial encounter for closed fracture (principal); X58.XXXA Exposure to other specified factors, initial encounter; Z20.822 Contact with and (suspected) exposure to COVID-19 | CPT/HCPCS: 87635 ==

== ENCOUNTER 2020-09-12 08:25 | Day surgery (SDC) | payer MEDICARE, OTHER, SELFPAY ==
[2020-09-06 12:17] VITALS: BMI 24.4
--- NOTE | 2020-09-06 12:24 | ANES.PREANE2 ---
Pre-Anesthetic Assessment Pre-Anesthetic Assessment: Height/Weight: Height 1.85 m Weight 83.915 kg Preop Diagnosis: Clavicular fracture Proposed Procedure: Operation Date: 09/09/20 10:10 Proposed Procedures p ORIF Clavicle 87774 S42.0(Not Applicable) - Isidoro Fermin, Familial anesthetic complications: None Social: Social History: No alcohol and No tobacco Exam: Pre-Anes Outpt Exam: alert, oriented x 3, clear to auscultation bilaterally and regular rate & rhythm Airway: Cervical ROM: WNL MP: 3 Dentition: Full CV/HEM: Comments: ECHO 07/15/20 CONCLUSIONS 1-Normal left ventricular cavity size. Mildly reduced left ventricular systolic function. Global left ventricular hypokinesis. Left ventricular ejection fraction is estimated at 50 %. Grade I/IV diastolic dysfunction (abnormal relaxation filling pattern), normal to mildly elevated filling pressures. 2-No significant valve abnormalities. 3-There is no pericardial effusion. 4-Right atrial pressure is around 5 mm of mercury. 5-There are no prior echocardiogram studies to compare. Metabolic: Comments: multiple myeloma Musc/skel: Comments: multiple myeloma s/p fall in may w/ clavicular fracture and multiple rib fractures Anesthetic Plan: ASA status: 3 Anesthesia: General and Regional (specify below) Risk of > 500 ml blood loss (7ml/kg in children): No Data Anesthesia Cardiac Studies: No Data to Display
[2020-09-12] VITALS (8 sets, daily range): BP systolic 107–177; BP diastolic 59–88; PULSE 62–72; RESP 11–66; TEMP 36.1–36.6; O2SAT 97–100
--- NOTE | 2020-09-12 | SCC_ITS ---
Procedure Done: Open reduction internal fixation of right clavicle nonunion 9.9 seconds of fluoroscopic guidance, for a cumulative dose of 0.73 mGy, was provided to Dr. Fermin by the radiology department. C-arm images of the RIGHT clavicle were saved for the patient's permanent record. [facility]
--- NOTE | 2020-09-12 | XR_ITS ---
WS: [id number] Exam: [place] [id number] Date/Time of Exam: 09/12/2020 12:00 AM Reason For Exam: orif clavicle A single AP intraoperative C-arm image of the right clavicle is submitted for evaluation. There is plate and screw fixation involving a comminuted fracture of the distal right clavicle. Sever al surgical clamps superimpose the right humeral head and axillary region.
[2020-09-12] MEDS: sodium chloride 0.9% 1,000 ML 30 ML IV (08:49)
--- NOTE | 2020-09-12 10:14 | W.PM.OPSUD ---
Surgery/Procedure H&P Update DATE OF PROCEDURE: September 12, 2020 DATE H&P PERFORMED: 08/25/20 H&P UPDATE INFORMATION: I have reviewed H&P completed within last 30 days, I have examined patient prior to procedure and No changes to prior documentation PREOP DIAGNOSIS: right clavicle nonunion PLANNED PROCEDURE: Operation Date: 09/12/20 10:20 Proposed Procedures p ORIF Clavicle 23248 S42.0(Right) - Isidoro Fermin DO
--- NOTE | 2020-09-12 10:30 | P.ANESUD_ITS ---
Pre-Anesthetic Update Pre-Anesthetic Assessment: Date of Surgery/Procedure: 09/12/20 Preop Mary gnosis: right clavicle nonunion Proposed Procedure: Operation Date: 09/12/20 10:20 Proposed Procedures p ORIF Clavicle 63502 S42.0(Right) - Isidoro Fermin, DO Any changes to Pre-Anesthetic Assessment?: No Last Intake: Intake Last Liquid Date 09/11/20 Last Liquid Time 17:00 Last Solid Date 09/11/20 Last Solid Time 17:00 Vitals: Temperature 97.0 F L 09/12/20 08:39 Temperature Source Temporal Artery S can 09/12/20 08:39 Pulse Rate 69 09/12/20 08:39 Respiratory Rate 18 09/12/20 08:39 Blood Pressure 177/88 09/12/20 08:39 Blood Pressure Kely n 117 09/12/20 08:39 Pulse Oximetry 97 09/12/20 08:39 Oxygen Delivery Me thod 09/12/20 08:39 Exam: Pre-Anes Outpt Exam: alert, oriented x 3, clear to auscultation bilaterally and regular rate & rhythm Cardiac Studies: No Data to Display
--- NOTE | 2020-09-12 12:33 | P.OP_ITS ---
Operative Report Date of procedure: September 12, 2020 Pre-op Diagnosis: right clavicle nonunion Post-op diagnosis: same Procedure Done: Open reduction internal fixation of right clavicle nonunion Surgeon: Isidoro Fermin Anesthesia: General Estimated blood loss (mL): 5 Condition: stable Disposition: PACU Procedure: Open reduction internal fixation of right clavicle nonunion Patient was brought to the operative suite placed in the beachchair position all areas impingement were well-padded patient's prepped and draped normal sterile fashion. Skin incision is made over the right clavicle. Patient had significant amount of bridging bone and callus formation patient had 2 sharp edges that were sticking to the skin. The fascia over the clavicle was taken down and elevated. The nonunion site was identified and freed up curettes were used to take down the fibrous nonunion. The sharp bone edges were rongeured out with a rongeur. The fracture fragments were pieced back together and 2 lag screws were placed to hold the fragments together. And then a [place] superior plate was placed. 4 screws were placed lateral 3 screws proximal. X-ray ensured that the fracture and hardware in improved positions. Wounds were irrigated and wound was closed with Vicryl and Monocryl suture and skin glue. Sterile dressings were applied and patient was transferred to the PACU in stable condition.
[2020-09-12] MEDS: ondansetron 2 mg/ML SDV 2 mL 4 MG IVP ×2 (13:35→14:00)
--- NOTE | 2020-09-12 13:45 | ANE.PACU2 ---
Inpatient post-anesthesia follow up: Airway intact: Yes Vital signs: Temperature 97.7 F Pulse Rate 62 Respiratory Rate 20 Blood Pressure 143/76 Pulse Oximetry 97 Oxygen Delivery Me thod Room Air Oxygen Flow Rate 8 Fraction of Inspir ed Oxygen Hydration adequate: Yes Nausea and vomiting: No Pain level: 2 Mental status: Baseline
[2020-09-12] MEDS: diphenhydrAMINE 50 mg/mL SDV 1mL 12.5 MG IVP (14:24)
[2020-09-12] MEDS: HYDROcodone-acetaminophen 5-325 mg Tablet 1 TAB PO (14:43)
== END 2020-09-12 15:35 | disposition home or self-care (01) ==
PROVIDERS: PCP Family Medicine; Visit Provider Orthopaedic Surgery
PROC: (CPT 23515; principal; 2020-09-12 10:10)
DX: S42.001A Fracture of unspecified part of right clavicle, initial encounter for closed fracture (principal); X58.XXXA Exposure to other specified factors, initial encounter
CPT/HCPCS: 23515; 73000; 76000; 96374; 96375; C1713; J0690; J1100; J1200; J2270; J2370; J2405; J2704; J2710; J3010; J3490; J7030

== ENCOUNTER 2020-09-14 06:38 | Outpatient (CLI) | payer MEDICARE, OTHER, SELFPAY ==
[2020-09-14 08:38] LABS: Basophils % 0.4 %; Eosinophils # 0.2 10^3/uL (0.0-0.8); Eosinophils % 3.7 %; Hematocrit 37.6 % (42.0-52.0); Hemoglobin 12.6 g/dL (11.7-16.6); Lymphocytes # 1.2 10^3/uL (0.8-4.8); Lymphocytes % 20.7 %; Mean Corpuscular HGB Conc 33.5 g/dL (30.0-36.0); Mean Corpuscular Hemoglobin 32.2 pg (28.0-34.0); Mean Corpuscular Volume 96.2 fL (80-94); Monocytes # 0.6 10^3/uL (0.2-0.9); Monocytes % 10.3 %; Neutrophils % 64.7 %; Nucleated Red Blood Cells % 0 %; Platelet Count 149 10^3/cmm (130-400); Red Blood Count 3.91 10^6/uL (4.1-5.3); Red Cell Distribution Width 16.2 % (12.1-15.1); White Blood Count 5.7 10^3/uL (4.0-10.0)
[2020-09-14 09:02] LABS: Alanine Aminotransferase 6 U/L (0-41); Albumin Level 3.8 g/dL (3.5-5.2); Alkaline Phosphatase 76 IU/L (40-130); Anion Gap 13.6 (5-19); Aspartate Amino Transferase 11 U/L (0-40); Blood Urea Nitrogen 13 mg/dL (8-23); Calcium 8.5 mg/dL (8.5-10.5); Carbon Dioxide 25 mmol/L (22-29); Chloride 101 mmol/L (98-107); Globulin 2.8 g/dL (1.3-4.6); Glucose 113 mg/dL (65-115); Osmolality Calculated 283 mOsm/kg (285-295); Potassium 3.6 mmol/L (3.5-5.1); Sodium 136 mmol/L (136-145); Total Bilirubin 0.5 mg/dL (0.15-1.2); Total Protein 6.6 g/dL (6.6-8.7)
== END 2020-09-14 06:39 | disposition home or self-care (01) ==
LOC: ONCMED 06:47
PROVIDERS: PCP Family Medicine; Visit Provider Internal Medicine Medical Oncology
DX: C90.00 Multiple myeloma not having achieved remission (principal); D47.2 Monoclonal gammopathy; D64.9 Anemia, unspecified; D70.1 Agranulocytosis secondary to cancer chemotherapy; T45.1X5A Adverse effect of antineoplastic and immunosuppressive drugs, initial encounter; Z79.899 Other long term (current) drug therapy
CPT/HCPCS: 80053; 85025

== ENCOUNTER 2020-09-26 06:40 | Outpatient (CLI) | payer MEDICARE, OTHER, SELFPAY ==
--- NOTE | 2020-09-27 07:28 | ONC FU_ITS ---
Dr. Sanches Patient Follow-Up Note Patient: Nick Sheldon Unit #: [id number]: 1950 Dicatated By: Olu Sanches M.D.Date of Visit:Sep 26, 2020 Onc Med Follow-up/Prog Note Chief Complaint: Myeloma. History of Present Illness: This is a 70 year-old man with IgA lambda myeloma. He had been seen by Dr. Prado in April 2019 to establish primary care. His initial evaluation included a comprehensive metabolic profile on 04/13/2019 which showed elevated BUN and creatinine at 19 and 1.43 mg/dL and elevation of the calculated serum globulin at 4.4 g/dL. His further laboratory studies from 04/24/2019 included CBC showing hemoglobin 11.2 g with hematocrit 34%. The red cell indices were normal. The white blood cell count was 5200 and the platelet count was 185,000. His basic metabolic profile showed borderline renal function with BUN 19 and creatinine 1.46 mg/dL. Calcium was normal at 9.7 mg/dL. Protein electrophoresis showed an IgA lambda monoclonal protein which quantitated at 2.6 g/dL. A second M band measured 0.2 g/dL. The total protein was 8.0 g/dL and the albumin measured 3.8 g/dL. The quantitative immunoglobulin levels included IgA 3025 mg/dL, IgG 299 mg/dL, and IgM 14 mg/dL. The free light chain assay showed elevated lambda light chain at 39.1 mg/L with normal kappa light chain at 5.1 mg/L and decreased kappa/lambda ratio at 0.13. I had seen him initially on 05/26/2019. His further evaluation included a 24-hour urine protein electrophoresis which showed no monoclonal protein and a skeletal survey which showed no evidence for lytic bone lesions. He was then referred to [facility]. His bone marrow aspiration/biopsy on 06/05/2019 showed increased lambda restricted plasma cells estimated at 60% of the overall cellularity, consistent with plasma cell neoplasm. 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 Staging PET/CT on 06/13/2019 showed no evidence for active malignancy. He had further evaluation with MRI of the spine on 06/25/2019. The cervical spine showed some degenerative changes but no evidence for metastatic disease. There was mild heterogeneity throughout the vertebral bodies of the thoracic spine. There was no evidence for a destructive process, but involvement with myeloma was not excluded. There was also mild heterogeneity throughout the lumbar spine. Also noted was a mild [id number] pattern and there was a hypointense lesion noted along the superior endplate of the L2 vertebral body. That lesion did show enhancement and there was additional very mild enhancement involving the sacrum. Overall, the findings were suspicious for involvement with myeloma. With those findings, along with the anemia and renal impairment, he was recommended to begin treatment with carfilzomib/Revlimid/dexamethasone. He began cycle 1 of carfilzomib/Revlimid/dexamethasone on 08/05/2019. Due to the impaired renal function, the Revlimid was administered at a reduced dosage of 15 mg daily on a 21/28-day schedule. His 1st cycle was complicated by development of skin eruption, which improved with stopping the Revlimid. However, he was able to restart the Revlimid with no recurrence of the eruption. He continued with cycle 2 on 09/02/2019. His repeat protein electrophoresis at that time showed a decrease in the M protein to 0.9 g/dL. During that cycle, the Revlimid was again put on hold at day 8 due to a decrease in the neutrophil count and the platelet count. He continued with cycle 3 on 09/30/2019 and with cycle 4 on 10/28/2019. On his repeat protein electrophoresis studies prior to starting cycle 4 his M protein was undetectable. His IgA level had decreased to 61 mg/dL. He then underwent high-dose melphalan/autologous stem cell transplant at [facility] on 12/24/2019. He had his day 100 follow-up visit at [facility] on 04/05/2020. His bone marrow aspiration/biopsy showed normocellular bone marrow with multilineage hematopoiesis and no increase in plasma cells. He was then recommended to begin dual maintenance therapy with lenalidomide 10 mg daily on a 21/28-day schedule together with ixazomib 4 mg on days 1, 8, and 15 of a 28-day schedule. He has otherwise been in excellent health. He has had no other ongoing medical illnesses. He is a non-smoker. INTERIM HISTORY: He began cycle 1 of maintenance with lenalidomide/ixazomib on 04/27/2020. He tolerated it well and he then continued cycles at 4-week intervals. In May he also began his vaccination schedule. He began his 4th cycle of maintenance on 07/25/2020. As of his follow-up visit on 08/22/2020 his treatment was put on hold due to moderately severe neutropenia, ANC 800. 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 He had no complications with that procedure. He is seen for a follow-up visit. He has been feeling good generally. He still has restricted activity following his recent surgery, but he is able to do light work. ECOG score is 1. He has good appetite. He has no fever or night sweats. He has a little bit of sinus drainage. He has had no mouth sores. He has no shortness of breath, cough, or chest pain. He still has diarrhea occasionally. He has no other GI or complaints. He has no other joint or bone pain. He does not complain of headache or dizziness, and he has no focal neurologic symptoms. Medications: Acyclovir 1 Tablet (of 400 mg) Oral t.i.d., LORazepam 0.5 - 1 Tablet (of 1 mg) Oral t.i.d. PRN, Prochlorperazine Maleate 1 Tablet (of 10 mg) Oral q 4 hours PRN, Revlimid 1 (5 mg) Capsule Oral daily for 21 days Allergies: No Known Allergies. Vital Signs: Performed on Sep 26, 2020 08:43 Height - 74.00 in Weight - 181.2 lbs (LOW) BSA - 2.08 sq.m BMI - 23.26 Temperature - 98.3 F (LOW) Pulse - 80 /min Respiration - 18 /min BP - 171/90 mm(hg) (HIGH) O2 Sat - 96 % Pain - 0 Fatigue - 0 Physical Examination: Constitutional - He looks good generally, Eyes - Sclerae nonicteric. Conjunctivae clear, ENMT - No lesions noted in the oral cavity, Hematologic/Lymphatic - No cervical, clavicular, or axillary adenopathy, Respiratory - Lungs are clear with good air movement bilaterally, Cardiovascular - Heart rhythm is regular. There is no murmur, gallop, or rub noted, Abdomen - Soft. Liver and spleen are not enlarged. There is no abdominal mass or ascites noted and there is no inguinal adenopathy, Extremities - No edema, Neurologic - No focal neurologic deficits noted. Lab/Imaging: Test performed on Sep 14, 2020 07:59 Sodium 136 mmol/L Potassium 3.6 mmol/L Chloride 101 mmol/L CO2 25 mmol/L Anion Gap 13.6 BUN 13 mg/dL Creatinine 1.1 mg/dL Cr Clearance (Est) 72.0800 mL/min Glucose 113 mg/dL Osmolality - Calculated 283 mOsm/kg Calcium 8.5 mg/dL Protein, Total 6.6 g/dL Albumin 3.8 g/dL Globulin 2.8 g/dL Bilirubin, Total 0.5 mg/dL ALT (SGPT) 6 U/L AST (SGOT) 11 U/L Alkaline Phosphatase 76 IU/L WBC 5.7 10 3/uL RBC 3.91 10 6/uL HGB 12.6 g/dL HCT 37.6 % MCV 96.2 fL MCH 32.2 pg MCHC 33.5 g/dL RDW 16.2 % Platelet Count 149 10 3/cmm MPV 10.0 fL Neutrophils 3.70 10 3/uL Lymphocytes 1.2 10 3/uL Monocytes 0.6 10 3/uL Eosinophils 0.2 10 3/uL Basophils 0.0 10 3/uL Neutrophil % 64.7 % Lymphocyte % 20.7 % Monocyte % 10.3 % Eosinophil % 3.7 % Basophils % 0.4 % NRBC % 0 % Test performed on Aug 31, 2020 10:15 IgG 1104 mg/dL [place] Free Light Chains 16.8 mg/L Lambda Free Light Chains 9.1 mg/L IgA 209 mg/dL [place]/Lambda Free Ratio 1.85 IgM < 25 mg/dL Problem List: 1. IgA lambda myeloma. He had mild anemia and mild renal impairment at initial diagnosis in May 2019. Bone marrow aspiration/biopsy showed involvement with lambda restricted plasma cells, estimated at 60% of the marrow cellularity, consistent with plasma cell neoplasm. There was no evidence for lytic bone disease on a skeletal survey or PET/CT, but MRI showed subtle changes in the thoracic and lumbar spine which were suspicious for involvement with myeloma. 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 2. On 06/02/2020 he suffered a traumatic fracture of the right clavicle and multiple rib fractures. 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 Problems Addressed with this Encounter and Plan: Patient with IgA lambda myeloma. He had mild anemia and mild renal impairment at initial diagnosis in May 2019. Bone marrow aspiration/biopsy showed involvement with lambda restricted plasma cells, estimated at 60% of the marrow cellularity, consistent with plasma cell neoplasm. 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 There was no evidence for lytic bone disease on a skeletal survey or PET/CT, but MRI showed subtle changes in the thoracic and lumbar spine which were suspicious for involvement with myeloma. He began treatment with carfilzomib/Revlimid/dexamethasone on 08/05/2019. Due to the impaired renal function, the Revlimid was initiated at a reduced dosage of 15 mg daily on a 21/28-day schedule. During the first cycle his Revlimid was interrupted due to a skin eruption, but he was able to resume treatment with no recurrence of the eruption. During cycle 2 the Revlimid was put on hold at day 8 due to a decrease in the neutrophil count and the platelet count. The carfilzomib and dexamethasone were given on schedule and with no reductions. He then continued with cycle 3 on 09/30/2019 and with cycle 4 on 10/28/2019. He had a very good response to the treatment with his repeat protein electrophoresis at that point showing no detectable monoclonal protein and with his IgA level decreasing to 61 mg/dL compared to a pretreatment level of 3025 mg/dL. On 12/24/2019 he underwent high-dose melphalan/stem cell transplant at [facility]. He had an uneventful recovery following that procedure. His day 100 bone marrow aspiration/biopsy on 04/05/2020 showed normal cellular marrow with no increase in plasma cells. On 04/27/2020 he began cycle 1 of maintenance therapy with lenalidomide 10 mg daily on a 21/28-day schedule together with ixazomib 4 mg on days 1, 8, and 15 of a 28-day schedule. He tolerated that treatment well, and he then continued cycles at 4-week intervals. He began cycle 4 on 07/25/2020. As of 08/22/2020 his treatment was put on hold due to moderately severe neutropenia, ANC 800. He had uneventful recovery, but his maintenance therapy then remained on hold for an ORIF procedure for nonunion right clavicle fracture on 09/12/2020. He has had no complications with his recent surgery and his blood counts now are adequate. He will proceed now with his 5th cycle of maintenance therapy with the lenalidomide dosage reduced to mg daily on a 21/28-day schedule. The ixazomib remains the same at 4 mg weekly taken on days 1, 8, and 15. His blood count will be rechecked in 2 weeks and will be scheduled for a follow-up visit in 4 weeks. Signed By: Olu Sanches M.D. <<Signature on File>>
== END 2020-09-26 06:41 | disposition home or self-care (01) ==
LOC: ONCMED 06:43
PROVIDERS: PCP Family Medicine; Visit Provider Internal Medicine Medical Oncology
DX: C90.00 Multiple myeloma not having achieved remission (principal); C79.51 Secondary malignant neoplasm of bone; D64.9 Anemia, unspecified; N17.9 Acute kidney failure, unspecified; S42.001K Fracture of unspecified part of right clavicle, subsequent encounter for fracture with nonunion; S22.41XD Multiple fractures of ribs, right side, subsequent encounter for fracture with routine healing; Z79.899 Other long term (current) drug therapy; Z92.21 Personal history of antineoplastic chemotherapy
CPT/HCPCS: 99214

== ENCOUNTER 2020-10-12 06:30 | Outpatient (CLI) | payer MEDICARE, OTHER, SELFPAY ==
[2020-10-12 08:00] LABS: Basophils % 0.9 %; Eosinophils # 0.4 10^3/uL (0.0-0.8); Eosinophils % 9.5 %; Hematocrit 36.3 % (42.0-52.0); Hemoglobin 12.2 g/dL (11.7-16.6); Lymphocytes # 1.1 10^3/uL (0.8-4.8); Lymphocytes % 23.8 %; Mean Corpuscular HGB Conc 33.6 g/dL (30.0-36.0); Mean Corpuscular Hemoglobin 32.7 pg (28.0-34.0); Mean Corpuscular Volume 97.3 fL (80-94); Mean Platelet Volume 11.6 fL (7.4-10.4); Monocytes # 0.8 10^3/uL (0.2-0.9); Monocytes % 18.1 %; Neutrophils # 2.08 10^3/uL (1.8-7.7); Neutrophils % 47.2 %; Nucleated Red Blood Cells % 0 %; Platelet Count 108 10^3/cmm (130-400); Red Blood Count 3.73 10^6/uL (4.1-5.3); Red Cell Distribution Width 15.8 % (12.1-15.1); White Blood Count 4.4 10^3/uL (4.0-10.0)
[2020-10-12 08:10] LABS: Alanine Aminotransferase 11 U/L (0-41); Albumin Level 3.6 g/dL (3.5-5.2); Alkaline Phosphatase 67 IU/L (40-130); Anion Gap 9.6 (5-19); Aspartate Amino Transferase 16 U/L (0-40); Blood Urea Nitrogen 11 mg/dL (8-23); Calcium 8.4 mg/dL (8.5-10.5); Carbon Dioxide 28 mmol/L (22-29); Chloride 102 mmol/L (98-107); Globulin 2.7 g/dL (1.3-4.6); Glucose 83 mg/dL (65-115); Osmolality Calculated 281 mOsm/kg (285-295); Potassium 3.6 mmol/L (3.5-5.1); Sodium 136 mmol/L (136-145); Total Bilirubin 0.6 mg/dL (0.15-1.2); Total Protein 6.3 g/dL (6.6-8.7)
== END 2020-10-12 06:31 | disposition home or self-care (01) ==
LOC: ONCMED 06:32
PROVIDERS: PCP Family Medicine; Visit Provider Internal Medicine Medical Oncology
DX: C90.00 Multiple myeloma not having achieved remission (principal); D47.2 Monoclonal gammopathy; Z79.899 Other long term (current) drug therapy
CPT/HCPCS: 36415; 80053; 85025

== ENCOUNTER 2020-10-26 06:13 | Outpatient (CLI) | payer MEDICARE, OTHER, SELFPAY ==
[2020-10-26 09:15] LABS: Basophils # 0.1 10^3/uL (0.0-0.1); Basophils % 2.5 %; Eosinophils # 0.4 10^3/uL (0.0-0.8); Eosinophils % 10.4 %; Hemoglobin 12.8 g/dL (11.7-16.6); Lymphocytes # 1.2 10^3/uL (0.8-4.8); Lymphocytes % 29.2 %; Mean Corpuscular HGB Conc 32.8 g/dL (30.0-36.0); Mean Corpuscular Hemoglobin 32.2 pg (28.0-34.0); Mean Platelet Volume 9.9 fL (7.4-10.4); Monocytes # 0.8 10^3/uL (0.2-0.9); Monocytes % 19.6 %; Neutrophils # 1.54 10^3/uL (1.8-7.7); Neutrophils % 38.1 %; Nucleated Red Blood Cells % 0 %; Platelet Count 142 10^3/cmm (130-400); Red Blood Count 3.98 10^6/uL (4.1-5.3); Red Cell Distribution Width 15.4 % (12.1-15.1)
[2020-10-26 09:34] LABS: Alanine Aminotransferase 8 U/L (0-41); Albumin Level 3.9 g/dL (3.5-5.2); Alkaline Phosphatase 67 IU/L (40-130); Anion Gap 10.8 (5-19); Aspartate Amino Transferase 14 U/L (0-40); Blood Urea Nitrogen 13 mg/dL (8-23); Calcium 8.5 mg/dL (8.5-10.5); Carbon Dioxide 27 mmol/L (22-29); Chloride 104 mmol/L (98-107); Globulin 2.7 g/dL (1.3-4.6); Glucose 87 mg/dL (65-115); Osmolality Calculated 285 mOsm/kg (285-295); Potassium 3.8 mmol/L (3.5-5.1); Sodium 138 mmol/L (136-145); Total Bilirubin 0.5 mg/dL (0.15-1.2); Total Protein 6.6 g/dL (6.6-8.7)
== END 2020-10-26 06:14 | disposition home or self-care (01) ==
PROVIDERS: PCP Family Medicine; Visit Provider Internal Medicine Medical Oncology
DX: C90.00 Multiple myeloma not having achieved remission (principal); D47.2 Monoclonal gammopathy; D70.1 Agranulocytosis secondary to cancer chemotherapy; T45.1X5D Adverse effect of antineoplastic and immunosuppressive drugs, subsequent encounter; D64.9 Anemia, unspecified; Z79.899 Other long term (current) drug therapy
CPT/HCPCS: 36415; 80053; 85025

== ENCOUNTER → 2020-10-27 08:31 | Outpatient (BNVA) | payer MEDICARE, OTHER, SELFPAY | PROVIDERS: PCP Family Medicine; Visit Provider Orthopaedic Surgery | DX: Z48.89 Encounter for other specified surgical aftercare (principal) | CPT/HCPCS: 73000 ==

== ENCOUNTER 2020-11-03 06:22 | Outpatient (CLI) | payer MEDICARE, OTHER, SELFPAY ==
[2020-11-03 09:05] LABS: Basophils # 0.1 10^3/uL (0.0-0.1); Basophils % 1.4 %; Eosinophils # 0.5 10^3/uL (0.0-0.8); Nucleated Red Blood Cells % 0 %
[2020-11-03 09:49] LABS: Alanine Aminotransferase 12 U/L (0-41); Alkaline Phosphatase 80 IU/L (40-130); Anion Gap 13.2 (5-19); Aspartate Amino Transferase 17 U/L (0-40); Blood Urea Nitrogen 10 mg/dL (8-23); Calcium 8.7 mg/dL (8.5-10.5); Carbon Dioxide 28 mmol/L (22-29); Chloride 100 mmol/L (98-107); Globulin 2.9 g/dL (1.3-4.6); Glucose 93 mg/dL (65-115); Immunoglobulin IGA 181 mg/dL (70-400); Immunoglobulin IGG 1018 mg/dL (700-1600); Immunoglobulin IGM 27 mg/dL (40-230); Osmolality Calculated 283 mOsm/kg (285-295); Potassium 4.2 mmol/L (3.5-5.1); Sodium 137 mmol/L (136-145); Total Bilirubin 0.5 mg/dL (0.15-1.2); Total Protein 6.9 g/dL (6.6-8.7)
[2020-11-03 09:51] LABS: Eosinophils % 11.6 %; Hematocrit 41.8 % (42.0-52.0); Hemoglobin 13.6 g/dL (11.7-16.6); Lymphocytes # 1.5 10^3/uL (0.8-4.8); Lymphocytes % 34.6 %; Mean Corpuscular HGB Conc 32.5 g/dL (30.0-36.0); Mean Corpuscular Hemoglobin 32.7 pg (28.0-34.0); Mean Corpuscular Volume 100.5 fL (80-94); Mean Platelet Volume 10.7 fL (7.4-10.4); Monocytes # 0.4 10^3/uL (0.2-0.9); Neutrophils # 1.84 10^3/uL (1.8-7.7); Neutrophils % 41.9 %; Platelet Count 133 10^3/cmm (130-400); Red Blood Count 4.16 10^6/uL (4.1-5.3); White Blood Count 4.4 10^3/uL (4.0-10.0)
[2020-11-03 09:53] LABS: Slide Review Slide Review Perform
[2020-11-04 05:47] LABS: PROTEIN, TOTAL 6.7 g/dL (6.1-8.1)
[2020-11-04 11:52] LABS: ALBUMIN 3.9 g/dL (3.8-4.8); ALPHA 1 GLOBULIN 0.3 g/dL (0.2-0.3); ALPHA 2 GLOBULIN 0.8 g/dL (0.5-0.9); BETA 1 GLOBULIN 0.4 g/dL (0.4-0.6); BETA 2 GLOBULIN 0.4 g/dL (0.2-0.5)
[2020-11-04 12:07] LABS: KAPPA LIGHT CHAIN, FREE, SERUM 17.4 mg/L (3.3-19.4); KAPPA/LAMBDA LIGHT CHAINS FREE 1.54 (0.26-1.65); LAMBDA LIGHT CHAIN, FREE, SERU 11.3 mg/L (5.7-26.3)
== END 2020-11-03 06:23 | disposition home or self-care (01) ==
PROVIDERS: PCP Family Medicine; Visit Provider Internal Medicine Medical Oncology
DX: C90.00 Multiple myeloma not having achieved remission (principal); D47.2 Monoclonal gammopathy; D64.9 Anemia, unspecified; Z79.899 Other long term (current) drug therapy
CPT/HCPCS: 80053; 82784; 83883; 84155; 84165; 85025

== ENCOUNTER 2020-11-08 06:14 | Outpatient (CLI) | payer MEDICARE, OTHER, SELFPAY ==
--- NOTE | 2020-11-08 18:21 | ONC FU_ITS ---
Dr. Sanches Patient Follow-Up Note Patient: Nick Sheldon Unit #: [id number]: 1950 Dicatated By: Olu Sanches M.D.Date of Visit:Nov 08, 2020 Onc Med Follow-up/Prog Note Chief Complaint: Myeloma. History of Present Illness: This is a 70 year-old man with IgA lambda myeloma. He had been seen by Dr. Prado in April 2019 to establish primary care. His initial evaluation included a comprehensive metabolic profile on 04/13/2019 which showed elevated BUN and creatinine at 19 and 1.43 mg/dL and elevation of the calculated serum globulin at 4.4 g/dL. His further laboratory studies from 04/24/2019 included CBC showing hemoglobin 11.2 g with hematocrit 34%. The red cell indices were normal. The white blood cell count was 5200 and the platelet count was 185,000. His basic metabolic profile showed borderline renal function with BUN 19 and creatinine 1.46 mg/dL. Calcium was normal at 9.7 mg/dL. Protein electrophoresis showed an IgA lambda monoclonal protein which quantitated at 2.6 g/dL. A second M band measured 0.2 g/dL. The total protein was 8.0 g/dL and the albumin measured 3.8 g/dL. The quantitative immunoglobulin levels included IgA 3025 mg/dL, IgG 299 mg/dL, and IgM 14 mg/dL. The free light chain assay showed elevated lambda light chain at 39.1 mg/L with normal kappa light chain at 5.1 mg/L and decreased kappa/lambda ratio at 0.13. I had seen him initially on 05/26/2019. His further evaluation included a 24-hour urine protein electrophoresis which showed no monoclonal protein and a skeletal survey which showed no evidence for lytic bone lesions. He was then referred to [facility]. His bone marrow aspiration/biopsy on 06/05/2019 showed increased lambda restricted plasma cells estimated at 60% of the overall cellularity, consistent with plasma cell neoplasm. 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 Staging PET/CT on 06/13/2019 showed no evidence for active malignancy. He had further evaluation with MRI of the spine on 06/25/2019. The cervical spine showed some degenerative changes but no evidence for metastatic disease. There was mild heterogeneity throughout the vertebral bodies of the thoracic spine. There was no evidence for a destructive process, but involvement with myeloma was not excluded. There was also mild heterogeneity throughout the lumbar spine. Also noted was a mild [id number] pattern and there was a hypointense lesion noted along the superior endplate of the L2 vertebral body. That lesion did show enhancement and there was additional very mild enhancement involving the sacrum. Overall, the findings were suspicious for involvement with myeloma. With those findings, along with the anemia and renal impairment, he was recommended to begin treatment with carfilzomib/Revlimid/dexamethasone. He began cycle 1 of carfilzomib/Revlimid/dexamethasone on 08/05/2019. Due to the impaired renal function, the Revlimid was administered at a reduced dosage of 15 mg daily on a 21/28-day schedule. His 1st cycle was complicated by development of skin eruption, which improved with stopping the Revlimid. However, he was able to restart the Revlimid with no recurrence of the eruption. He continued with cycle 2 on 09/02/2019. His repeat protein electrophoresis at that time showed a decrease in the M protein to 0.9 g/dL. During that cycle, the Revlimid was again put on hold at day 8 due to a decrease in the neutrophil count and the platelet count. He continued with cycle 3 on 09/30/2019 and with cycle 4 on 10/28/2019. On his repeat protein electrophoresis studies prior to starting cycle 4 his M protein was undetectable. His IgA level had decreased to 61 mg/dL. He then underwent high-dose melphalan/autologous stem cell transplant at [facility] on 12/24/2019. He had his day 100 follow-up visit at [facility] on 04/05/2020. His bone marrow aspiration/biopsy showed normocellular bone marrow with multilineage hematopoiesis and no increase in plasma cells. He was then recommended to begin dual maintenance therapy with lenalidomide 10 mg daily on a 21/28-day schedule together with ixazomib 4 mg on days 1, 8, and 15 of a 28-day schedule. He has otherwise been in excellent health. He has had no other ongoing medical illnesses. He is a non-smoker. INTERIM HISTORY: He began cycle 1 of maintenance with lenalidomide/ixazomib on 04/27/2020. He tolerated it well and he then continued cycles at 4-week intervals. In May he also began his vaccination schedule. He began his 4th cycle of maintenance on 07/25/2020. As of his follow-up visit on 08/22/2020 his treatment was put on hold due to moderately severe neutropenia, ANC 800. 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 He had no complications with that procedure. As of his follow-up visit on 09/26/2020 he continued with cycle 5 of maintenance with the lenalidomide dosage reduced to 5 mg daily. He is seen for a follow-up visit. He has been feeling good generally. His energy level has been pretty good. He has normal activity. ECOG score is 0. He has good appetite. He has no fever or night sweats. He has had no mouth sores. He has no shortness of breath, cough, or chest pain. He currently has no GI or complaints, and he has no significant joint or bone pain. He does not complain of headache or dizziness. He has no numbness/paresthesia or other focal neurologic symptoms. Medications: Acyclovir 1 Tablet (of 400 mg) Oral t.i.d., LORazepam 0.5 - 1 Tablet (of 1 mg) Oral t.i.d. PRN, Prochlorperazine Maleate 1 Tablet (of 10 mg) Oral q 4 hours PRN, Revlimid 1 (5 mg) Capsule Oral daily for 21 days Allergies: No Known Allergies. Vital Signs: Performed on Nov 08, 2020 12:15 Height - 74.00 in Weight - 187.8 lbs (HIGH) BSA - 2.12 sq.m BMI - 24.11 Temperature - 97 F (LOW) Pulse - 72 /min Respiration - 18 /min BP - 156/76 mm(hg) (HIGH) O2 Sat - 98 % Pain - 0 Fatigue - 0 Physical Examination: Constitutional - He looks good generally, Eyes - Sclerae nonicteric. Conjunctivae clear, ENMT - No lesions noted in the oral cavity, Hematologic/Lymphatic - No cervical, clavicular, or axillary adenopathy, Respiratory - Lungs are clear with good air movement bilaterally, Cardiovascular - Heart rhythm is regular. There is no murmur, gallop, or rub noted, Abdomen - Soft. Liver and spleen are not enlarged. There is no abdominal mass or ascites noted and there is no inguinal adenopathy, Extremities - No edema, Neurologic - No focal neurologic deficits noted. Lab/Imaging: Test performed on Nov 03, 2020 08:24 Sodium 137 mmol/L Potassium 4.2 mmol/L Chloride 100 mmol/L CO2 28 mmol/L Anion Gap 13.2 BUN 10 mg/dL Creatinine 1.1 mg/dL Cr Clearance (Est) 71.6100 mL/min Glucose 93 mg/dL Osmolality - Calculated 283 mOsm/kg Calcium 8.7 mg/dL Protein, Total 6.9 g/dL Albumin 4.0 g/dL Globulin 2.9 g/dL Bilirubin, Total 0.5 mg/dL ALT (SGPT) 12 U/L AST (SGOT) 17 U/L Alkaline Phosphatase 80 IU/L WBC 4.4 10 3/uL RBC 4.16 10 6/uL HGB 13.6 g/dL HCT 41.8 % MCV 100.5 fL MCH 32.7 pg MCHC 32.5 g/dL RDW 15.0 % Platelet Count 133 10 3/cmm MPV 10.7 fL Neutrophils 1.84 10 3/uL Lymphocytes 1.5 10 3/uL Monocytes 0.4 10 3/uL Eosinophils 0.5 10 3/uL Basophils 0.1 10 3/uL Neutrophil % 41.9 % Lymphocyte % 34.6 % Monocyte % 10.0 % Eosinophil % 11.6 % Basophils % 1.4 % NRBC % 0 % CBC Slide Review Slide Review Perform SLIDE REVIEWED AGREES WITH AUTO RESULT Sentinel Free Light Chains 17.4 mg/L Lambda Free Light Chains 11.3 mg/L IgA 181 mg/dL Sentinel/Lambda Free Ratio 1.54 Problem List: 1. IgA lambda myeloma. He had mild anemia and mild renal impairment at initial diagnosis in May 2019. Bone marrow aspiration/biopsy showed involvement with lambda restricted plasma cells, estimated at 60% of the marrow cellularity, consistent with plasma cell neoplasm. There was no evidence for lytic bone disease on a skeletal survey or PET/CT, but MRI showed subtle changes in the thoracic and lumbar spine which were suspicious for involvement with myeloma. 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 2. On 06/02/2020 he suffered a traumatic fracture of the right clavicle and multiple rib fractures. 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 Problems Addressed with this Encounter and Plan: Patient with IgA lambda myeloma. He had mild anemia and mild renal impairment at initial diagnosis in May 2019. Bone marrow aspiration/biopsy showed involvement with lambda restricted plasma cells, estimated at 60% of the marrow cellularity, consistent with plasma cell neoplasm. 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 There was no evidence for lytic bone disease on a skeletal survey or PET/CT, but MRI showed subtle changes in the thoracic and lumbar spine which were suspicious for involvement with myeloma. He began treatment with carfilzomib/Revlimid/dexamethasone on 08/05/2019. Due to the impaired renal function, the Revlimid was initiated at a reduced dosage of 15 mg daily on a 21/28-day schedule. During the first cycle his Revlimid was interrupted due to a skin eruption, but he was able to resume treatment with no recurrence of the eruption. During cycle 2 the Revlimid was put on hold at day 8 due to a decrease in the neutrophil count and the platelet count. The carfilzomib and dexamethasone were given on schedule and with no reductions. He then continued with cycle 3 on 09/30/2019 and with cycle 4 on 10/28/2019. He had a very good response to the treatment with his repeat protein electrophoresis at that point showing no detectable monoclonal protein and with his IgA level decreasing to 61 mg/dL compared to a pretreatment level of 3025 mg/dL. On 12/24/2019 he underwent high-dose melphalan/stem cell transplant at [facility]. He had an uneventful recovery following that procedure. His day 100 bone marrow aspiration/biopsy on 04/05/2020 showed normal cellular marrow with no increase in plasma cells. On 04/27/2020 he began cycle 1 of maintenance therapy with lenalidomide 10 mg daily on a 21/28-day schedule together with ixazomib 4 mg on days 1, 8, and 15 of a 28-day schedule. He tolerated that treatment well, and he then continued cycles at 4-week intervals. He began cycle 4 on 07/25/2020. As of 08/22/2020 his treatment was put on hold due to moderately severe neutropenia, ANC 800. He had uneventful recovery, but his maintenance therapy then remained on hold for an ORIF procedure for nonunion right clavicle fracture on 09/12/2020. As of 09/26/2020 he continued with his cycle 5 of maintenance therapy with the lenalidomide dosage reduced to 5 mg. He is now in his 6th cycle. His blood counts remain adequate and he is otherwise tolerating treatment well. He will continue his maintenance lenalidomide/ixazomib at the same dosages. He will be scheduled for a follow-up visit in 5 weeks. Signed By: Olu Sanches M.D. <<Signature on File>>
== END 2020-11-08 06:15 | disposition home or self-care (01) ==
PROVIDERS: PCP Family Medicine; Visit Provider Internal Medicine Medical Oncology
DX: C90.00 Multiple myeloma not having achieved remission (principal); C79.51 Secondary malignant neoplasm of bone; S22.41XD Multiple fractures of ribs, right side, subsequent encounter for fracture with routine healing; S42.001D Fracture of unspecified part of right clavicle, subsequent encounter for fracture with routine healing; Z79.899 Other long term (current) drug therapy; Z92.21 Personal history of antineoplastic chemotherapy
CPT/HCPCS: 99214

== ENCOUNTER 2020-12-12 07:47 | Outpatient (CLI) | payer MEDICARE, OTHER, SELFPAY ==
[2020-12-12 08:49] LABS: Basophils % 0.8 %; Eosinophils # 0.4 10^3/uL (0.0-0.8); Eosinophils % 9.9 %; Hemoglobin 12.9 g/dL (11.7-16.6); Lymphocytes # 1.1 10^3/uL (0.8-4.8); Lymphocytes % 31.7 %; Mean Corpuscular HGB Conc 33.9 g/dL (30.0-36.0); Mean Corpuscular Hemoglobin 33.3 pg (28.0-34.0); Mean Corpuscular Volume 98.2 fl (80-94); Mean Platelet Volume 11.9 fL (7.4-10.4); Monocytes # 0.7 10^3/uL (0.2-0.9); Neutrophils # 1.33 10^3/uL (1.8-7.7); Neutrophils % 37.8 %; Nucleated Red Blood Cells % 0 %; Platelet Count 92 10^3/cmm (130-400); Red Blood Count 3.87 10^6/uL (4.1-5.3); White Blood Count 3.5 10^3/uL (4.0-10.0)
[2020-12-12 09:21] LABS: Alanine Aminotransferase 11 U/L (0-41); Albumin Level 3.8 g/dL (3.5-5.2); Alkaline Phosphatase 76 IU/L (40-130); Anion Gap 11.7 (5-19); Aspartate Amino Transferase 16 U/L (0-40); Blood Urea Nitrogen 11 mg/dL (8-23); Calcium 8.3 mg/dL (8.5-10.5); Carbon Dioxide 26 mmol/L (22-29); Chloride 103 mmol/L (98-107); Globulin 2.6 g/dL (1.3-4.6); Glucose 82 mg/dL (65-115); Immunoglobulin IGA 189 mg/dL (70-400); Immunoglobulin IGG 996 mg/dL (700-1600); Osmolality Calculated 282 mOsm/kg (285-295); Potassium 3.7 mmol/L (3.5-5.1); Sodium 137 mmol/L (136-145); Total Bilirubin 0.5 mg/dL (0.15-1.2); Total Protein 6.4 g/dL (6.6-8.7)
[2020-12-12 10:01] LABS: Immunoglobulin IGM 20 mg/dL (40-230)
[2020-12-13 12:17] LABS: PROTEIN, TOTAL 6.3 g/dL (6.1-8.1)
[2020-12-13 14:47] LABS: KAPPA LIGHT CHAIN, FREE, SERUM 23.2 mg/L (3.3-19.4); KAPPA/LAMBDA LIGHT CHAINS FREE 1.95 (0.26-1.65); LAMBDA LIGHT CHAIN, FREE, SERU 11.9 mg/L (5.7-26.3)
[2020-12-13 15:53] LABS: ALBUMIN 3.7 g/dL (3.8-4.8); ALPHA 1 GLOBULIN 0.3 g/dL (0.2-0.3); ALPHA 2 GLOBULIN 0.7 g/dL (0.5-0.9); BETA 1 GLOBULIN 0.4 g/dL (0.4-0.6); BETA 2 GLOBULIN 0.3 g/dL (0.2-0.5); GAMMA GLOBULIN 0.9 g/dL (0.8-1.7)
== END 2020-12-12 07:48 | disposition home or self-care (01) ==
LOC: ONCMED 07:50
PROVIDERS: PCP Family Medicine; Visit Provider Internal Medicine Medical Oncology
DX: C90.00 Multiple myeloma not having achieved remission (principal); D70.1 Agranulocytosis secondary to cancer chemotherapy; D47.2 Monoclonal gammopathy; D64.9 Anemia, unspecified
CPT/HCPCS: 36415; 80053; 82784; 83883; 84155; 84165; 85025

== ENCOUNTER 2020-12-14 06:00 | Outpatient (CLI) | payer MEDICARE, OTHER, SELFPAY ==
--- NOTE | 2020-12-14 17:39 | ONC FU_ITS ---
Dr. Sanches Patient Follow-Up Note Patient: Nick Sheldon Unit #: [id number]: 1950 Dicatated By: Olu Sanches M.D.Date of Visit:Dec 14, 2020 Onc Med Follow-up/Prog Note Chief Complaint: Myeloma. History of Present Illness: This is a 70 year-old man with IgA lambda myeloma. He had been seen by Dr. Prado in April 2019 to establish primary care. His initial evaluation included a comprehensive metabolic profile on 04/13/2019 which showed elevated BUN and creatinine at 19 and 1.43 mg/dL and elevation of the calculated serum globulin at 4.4 g/dL. His further laboratory studies from 04/24/2019 included CBC showing hemoglobin 11.2 g with hematocrit 34%. The red cell indices were normal. The white blood cell count was 5200 and the platelet count was 185,000. His basic metabolic profile showed borderline renal function with BUN 19 and creatinine 1.46 mg/dL. Calcium was normal at 9.7 mg/dL. Protein electrophoresis showed an IgA lambda monoclonal protein which quantitated at 2.6 g/dL. A second M band measured 0.2 g/dL. The total protein was 8.0 g/dL and the albumin measured 3.8 g/dL. The quantitative immunoglobulin levels included IgA 3025 mg/dL, IgG 299 mg/dL, and IgM 14 mg/dL. The free light chain assay showed elevated lambda light chain at 39.1 mg/L with normal kappa light chain at 5.1 mg/L and decreased kappa/lambda ratio at 0.13. I had seen him initially on 05/26/2019. His further evaluation included a 24-hour urine protein electrophoresis which showed no monoclonal protein and a skeletal survey which showed no evidence for lytic bone lesions. He was then referred to [facility]. His bone marrow aspiration/biopsy on 06/05/2019 showed increased lambda restricted plasma cells estimated at 60% of the overall cellularity, consistent with plasma cell neoplasm. 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 Staging PET/CT on 06/13/2019 showed no evidence for active malignancy. He had further evaluation with MRI of the spine on 06/25/2019. The cervical spine showed some degenerative changes but no evidence for metastatic disease. There was mild heterogeneity throughout the vertebral bodies of the thoracic spine. There was no evidence for a destructive process, but involvement with myeloma was not excluded. There was also mild heterogeneity throughout the lumbar spine. Also noted was a mild [id number] pattern and there was a hypointense lesion noted along the superior endplate of the L2 vertebral body. That lesion did show enhancement and there was additional very mild enhancement involving the sacrum. Overall, the findings were suspicious for involvement with myeloma. With those findings, along with the anemia and renal impairment, he was recommended to begin treatment with carfilzomib/Revlimid/dexamethasone. He began cycle 1 of carfilzomib/Revlimid/dexamethasone on 08/05/2019. Due to the impaired renal function, the Revlimid was administered at a reduced dosage of 15 mg daily on a 21/28-day schedule. His 1st cycle was complicated by development of skin eruption, which improved with stopping the Revlimid. However, he was able to restart the Revlimid with no recurrence of the eruption. He continued with cycle 2 on 09/02/2019. His repeat protein electrophoresis at that time showed a decrease in the M protein to 0.9 g/dL. During that cycle, the Revlimid was again put on hold at day 8 due to a decrease in the neutrophil count and the platelet count. He continued with cycle 3 on 09/30/2019 and with cycle 4 on 10/28/2019. On his repeat protein electrophoresis studies prior to starting cycle 4 his M protein was undetectable. His IgA level had decreased to 61 mg/dL. He then underwent high-dose melphalan/autologous stem cell transplant at [facility] on 12/24/2019. He had his day 100 follow-up visit at [facility] on 04/05/2020. His bone marrow aspiration/biopsy showed normocellular bone marrow with multilineage hematopoiesis and no increase in plasma cells. He was then recommended to begin maintenance therapy with lenalidomide 10 mg daily on a 21/28-day schedule together with ixazomib 4 mg on days 1, 8, and 15 of a 28-day schedule. He has otherwise been in excellent health. He has had no other ongoing medical illnesses. He is a non-smoker. INTERIM HISTORY: He began cycle 1 of maintenance with lenalidomide/ixazomib on 04/27/2020. He tolerated it well and he then continued cycles at 4-week intervals. In May he also began his vaccination schedule. He began his 4th cycle of maintenance on 07/25/2020. As of his follow-up visit on 08/22/2020 his treatment was put on hold due to moderately severe neutropenia, ANC 800. 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 He had no complications with that procedure. As of his follow-up visit on 09/26/2020 he continued with cycle 5 of maintenance with the lenalidomide dosage reduced to 5 mg daily. He is seen for a follow-up visit. He has now completed seven cycles of maintenance therapy. He has continued to tolerate the treatment well. He says he is feeling great. He has good energy and activity tolerance. ECOG score is zero. His appetite has been good. He has no fever or night sweats. He has a little bit of sinus drainage. He has not had sore mouth or throat. He has no shortness of breath, cough, or chest pain. He has no GI or complaints. Has a little bit of pain/stiffness in his knees, mainly in the mornings. He has no other joint or bone pain. He does not complain of headache or dizziness. He has no numbness/paresthesia or other focal neurologic symptoms. Medications: Acyclovir 1 Tablet (of 400 mg) Oral t.i.d., LORazepam 0.5 - 1 Tablet (of 1 mg) Oral t.i.d. PRN, Prochlorperazine Maleate 1 Tablet (of 10 mg) Oral q 4 hours PRN, Revlimid 1 (5 mg) Capsule Oral daily for 21 days Allergies: No Known Allergies. Vital Signs: Performed on Dec 14, 2020 09:24 Height - 74.00 in Weight - 193.2 lbs (HIGH) BSA - 2.14 sq.m BMI - 24.81 Temperature - 98.3 F (LOW) Pulse - 80 /min Respiration - 18 /min BP - 166/72 mm(hg) (HIGH) O2 Sat - 97 % Pain - 0 Fatigue - 0 Physical Examination: Constitutional - He looks good generally, Eyes - Sclerae nonicteric. Conjunctivae clear, ENMT - No lesions noted in the oral cavity, Hematologic/Lymphatic - No cervical, clavicular, or axillary adenopathy, Respiratory - Lungs are clear with good air movement bilaterally, Cardiovascular - Heart rhythm is regular. There is no murmur, gallop, or rub noted, Abdomen - Soft. Liver and spleen are not enlarged. There is no abdominal mass or ascites noted and there is no inguinal adenopathy, Extremities - No edema, Neurologic - No focal neurologic deficits noted. Lab/Imaging: CBC shows hemoglobin 12.8 g, white blood cell count 3500, and platelet count 92,000. The absolute neutrophil count is 1300. Comprehensive metabolic profile is unremarkable. Problem List: 1. IgA lambda myeloma. He had mild anemia and mild renal impairment at initial diagnosis in May 2019. Bone marrow aspiration/biopsy showed involvement with lambda restricted plasma cells, estimated at 60% of the marrow cellularity, consistent with plasma cell neoplasm. There was no evidence for lytic bone disease on a skeletal survey or PET/CT, but MRI showed subtle changes in the thoracic and lumbar spine which were suspicious for involvement with myeloma. 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 2. On 06/02/2020 he suffered a traumatic fracture of the right clavicle and multiple rib fractures. 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 Problems Addressed with this Encounter and Plan: Patient with IgA lambda myeloma. He had mild anemia and mild renal impairment at initial diagnosis in May 2019. Bone marrow aspiration/biopsy showed involvement with lambda restricted plasma cells, estimated at 60% of the marrow cellularity, consistent with plasma cell neoplasm. 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 There was no evidence for lytic bone disease on a skeletal survey or PET/CT, but MRI showed subtle changes in the thoracic and lumbar spine which were suspicious for involvement with myeloma. He began treatment with carfilzomib/Revlimid/dexamethasone on 08/05/2019. Due to the impaired renal function, the Revlimid was initiated at a reduced dosage of 15 mg daily on a 21/28-day schedule. During the first cycle his Revlimid was interrupted due to a skin eruption, but he was able to resume treatment with no recurrence of the eruption. During cycle 2 the Revlimid was put on hold at day 8 due to a decrease in the neutrophil count and the platelet count. The carfilzomib and dexamethasone were given on schedule and with no reductions. He then continued with cycle 3 on 09/30/2019 and with cycle 4 on 10/28/2019. He had a very good response to the treatment with his repeat protein electrophoresis at that point showing no detectable monoclonal protein and with his IgA level decreasing to 61 mg/dL compared to a pretreatment level of 3025 mg/dL. On 12/24/2019 he underwent high-dose melphalan/stem cell transplant at [facility]. He had an uneventful recovery following that procedure. His day 100 bone marrow aspiration/biopsy on 04/05/2020 showed normal cellular marrow with no increase in plasma cells. On 04/27/2020 he began cycle 1 of maintenance therapy with lenalidomide 10 mg daily on a 21/28-day schedule together with ixazomib 4 mg on days 1, 8, and 15 of a 28-day schedule. He tolerated that treatment well, and he then continued cycles at 4-week intervals. He began cycle 4 on 07/25/2020. As of 08/22/2020 his treatment was put on hold due to moderately severe neutropenia, ANC 800. He had uneventful recovery, but his maintenance therapy then remained on hold for an ORIF procedure for nonunion right clavicle fracture on 09/12/2020. As of 09/26/2020 he continued with his cycle 5 of maintenance therapy with the lenalidomide dosage reduced to 5 mg. He has now completed 7 cycles. He has moderately severe neutropenia, ANC 1300 and his platelet count is mildly decreased at 92,000. His hemoglobin is just borderline low at 12.9 g. As of 11/03/2020 there was no detectable monoclonal protein on his protein electrophoresis. He will continue with cycle 8 of maintenance with lenalidomide/ixazomib. For now the dosages will remain the same. I will recheck a CBC in 2 weeks I will see him again in 4 weeks. If there is a further decline in his blood counts, I will reduce the ixazomib dosage to 3 mg. Signed By: Olu Sanches M.D. <<Signature on File>>
== END 2020-12-14 06:01 | disposition home or self-care (01) ==
PROVIDERS: PCP Family Medicine; Visit Provider Internal Medicine Medical Oncology
DX: C90.00 Multiple myeloma not having achieved remission (principal); D70.9 Neutropenia, unspecified; Z94.84 Stem cells transplant status; Z79.899 Other long term (current) drug therapy
CPT/HCPCS: 99214

== ENCOUNTER 2020-12-28 09:18 | Outpatient (CLI) | payer MEDICARE, OTHER, SELFPAY ==
[2020-12-28 10:02] LABS: Basophils # 0.1 10^3/uL (0.0-0.1); Basophils % 1.6 %; Eosinophils # 0.2 10^3/uL (0.0-0.8); Eosinophils % 5.7 %; Hematocrit 39.1 % (42.0-52.0); Hemoglobin 13.3 g/dL (11.7-16.6); Lymphocytes # 1.2 10^3/uL (0.8-4.8); Lymphocytes % 29.9 %; Mean Corpuscular Hemoglobin 33.8 pg (28.0-34.0); Mean Corpuscular Volume 99.2 fl (80-94); Mean Platelet Volume 10.7 fL (7.4-10.4); Monocytes # 0.5 10^3/uL (0.2-0.9); Neutrophils # 1.93 10^3/uL (1.8-7.7); Neutrophils % 50.3 %; Nucleated Red Blood Cells % 0 %; Platelet Count 151 10^3/cmm (130-400); Red Blood Count 3.94 10^6/uL (4.1-5.3); Red Cell Distribution Width 14.2 % (12.1-15.1); White Blood Count 3.8 10^3/uL (4.0-10.0)
== END 2020-12-28 09:19 | disposition home or self-care (01) ==
PROVIDERS: PCP Family Medicine; Visit Provider Internal Medicine Medical Oncology
DX: C90.00 Multiple myeloma not having achieved remission (principal); D47.2 Monoclonal gammopathy; D64.9 Anemia, unspecified; D70.1 Agranulocytosis secondary to cancer chemotherapy
CPT/HCPCS: 36415; 85025

== ENCOUNTER 2021-01-09 09:52 | Outpatient (CLI) | payer MEDICARE, OTHER, SELFPAY ==
[2021-01-09 10:33] LABS: Basophils # 0.1 10^3/uL (0.0-0.1); Basophils % 1.3 %; Eosinophils # 0.3 10^3/uL (0.0-0.8); Eosinophils % 7.7 %; Hematocrit 39.4 % (42.0-52.0); Hemoglobin 13.3 g/dL (11.7-16.6); Lymphocytes # 1.2 10^3/uL (0.8-4.8); Lymphocytes % 32.8 %; Mean Corpuscular HGB Conc 33.8 g/dL (30.0-36.0); Mean Corpuscular Hemoglobin 33.3 pg (28.0-34.0); Mean Corpuscular Volume 98.5 fl (80-94); Mean Platelet Volume 11.4 fL (7.4-10.4); Monocytes # 0.7 10^3/uL (0.2-0.9); Neutrophils # 1.46 10^3/uL (1.8-7.7); Neutrophils % 38.7 %; Nucleated Red Blood Cells % 0 %; Platelet Count 89 10^3/cmm (130-400); Red Cell Distribution Width 14.4 % (12.1-15.1); White Blood Count 3.8 10^3/uL (4.0-10.0)
[2021-01-09 11:02] LABS: Alanine Aminotransferase 9 U/L (0-41); Albumin Level 3.8 g/dL (3.5-5.2); Alkaline Phosphatase 73 IU/L (40-130); Anion Gap 11.9 (5-19); Aspartate Amino Transferase 15 U/L (0-40); Blood Urea Nitrogen 16 mg/dL (8-23); Calcium 8.9 mg/dL (8.5-10.5); Carbon Dioxide 26 mmol/L (22-29); Chloride 102 mmol/L (98-107); Glucose 78 mg/dL (65-115); Immunoglobulin IGA 198 mg/dL (70-400); Immunoglobulin IGG 1036 mg/dL (700-1600); Immunoglobulin IGM 25 mg/dL (40-230); Osmolality Calculated 282 mOsm/kg (285-295); Potassium 3.9 mmol/L (3.5-5.1); Sodium 136 mmol/L (136-145); Total Bilirubin 0.4 mg/dL (0.15-1.2); Total Protein 6.8 g/dL (6.6-8.7)
[2021-01-10 12:37] LABS: KAPPA LIGHT CHAIN, FREE, SERUM 24.5 mg/L (3.3-19.4); KAPPA/LAMBDA LIGHT CHAINS FREE 1.66 (0.26-1.65); LAMBDA LIGHT CHAIN, FREE, SERU 14.8 mg/L (5.7-26.3)
[2021-01-11 11:12] LABS: PROTEIN, TOTAL 6.4 g/dL (6.1-8.1)
[2021-01-11 12:42] LABS: ALBUMIN 3.8 g/dL (3.8-4.8); ALPHA 1 GLOBULIN 0.3 g/dL (0.2-0.3); ALPHA 2 GLOBULIN 0.7 g/dL (0.5-0.9); BETA 1 GLOBULIN 0.4 g/dL (0.4-0.6); BETA 2 GLOBULIN 0.4 g/dL (0.2-0.5)
== END 2021-01-09 09:53 | disposition home or self-care (01) ==
LOC: ONCMED 09:54
PROVIDERS: PCP Family Medicine; Visit Provider Internal Medicine Medical Oncology
DX: C90.00 Multiple myeloma not having achieved remission (principal); D70.9 Neutropenia, unspecified; N28.9 Disorder of kidney and ureter, unspecified; D64.9 Anemia, unspecified
CPT/HCPCS: 36415; 80053; 82784; 83883; 84155; 84165; 85025

== ENCOUNTER 2021-01-16 06:33 | Outpatient (CLI) | payer MEDICARE, OTHER, SELFPAY ==
[2021-01-16] MEDS: denosumab 120 mg SDV SUBCUT (12:58)
--- NOTE | 2021-01-16 18:35 | ONC FU_ITS ---
Dr. Sanches Patient Follow-Up Note Patient: Nick Sheldon Unit #: [id number]: 1950 Dicatated By: Olu Sanches M.D.Date of Visit:Jan 16, 2021 Onc Med Follow-up/Prog Note Chief Complaint: Myeloma. History of Present Illness: This is a 70 year-old man with IgA lambda myeloma. He had been seen by Dr. Prado in April 2019 to establish primary care. His initial evaluation included a comprehensive metabolic profile on 04/13/2019 which showed elevated BUN and creatinine at 19 and 1.43 mg/dL and elevation of the calculated serum globulin at 4.4 g/dL. His further laboratory studies from 04/24/2019 included CBC showing hemoglobin 11.2 g with hematocrit 34%. The red cell indices were normal. The white blood cell count was 5200 and the platelet count was 185,000. His basic metabolic profile showed borderline renal function with BUN 19 and creatinine 1.46 mg/dL. Calcium was normal at 9.7 mg/dL. Protein electrophoresis showed an IgA lambda monoclonal protein which quantitated at 2.6 g/dL. A second M band measured 0.2 g/dL. The total protein was 8.0 g/dL and the albumin measured 3.8 g/dL. The quantitative immunoglobulin levels included IgA 3025 mg/dL, IgG 299 mg/dL, and IgM 14 mg/dL. The free light chain assay showed elevated lambda light chain at 39.1 mg/L with normal kappa light chain at 5.1 mg/L and decreased kappa/lambda ratio at 0.13. I had seen him initially on 05/26/2019. His further evaluation included a 24-hour urine protein electrophoresis which showed no monoclonal protein and a skeletal survey which showed no evidence for lytic bone lesions. He was then referred to [facility]. His bone marrow aspiration/biopsy on 06/05/2019 showed increased lambda restricted plasma cells estimated at 60% of the overall cellularity, consistent with plasma cell neoplasm. 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 Staging PET/CT on 06/13/2019 showed no evidence for active malignancy. He had further evaluation with MRI of the spine on 06/25/2019. The cervical spine showed some degenerative changes but no evidence for metastatic disease. There was mild heterogeneity throughout the vertebral bodies of the thoracic spine. There was no evidence for a destructive process, but involvement with myeloma was not excluded. There was also mild heterogeneity throughout the lumbar spine. Also noted was a mild [id number] pattern and there was a hypointense lesion noted along the superior endplate of the L2 vertebral body. That lesion did show enhancement and there was additional very mild enhancement involving the sacrum. Overall, the findings were suspicious for involvement with myeloma. With those findings, along with the anemia and renal impairment, he was recommended to begin treatment with carfilzomib/Revlimid/dexamethasone. He began cycle 1 of carfilzomib/Revlimid/dexamethasone on 08/05/2019. Due to the impaired renal function, the Revlimid was administered at a reduced dosage of 15 mg daily on a 21/28-day schedule. His 1st cycle was complicated by development of skin eruption, which improved with stopping the Revlimid. However, he was able to restart the Revlimid with no recurrence of the eruption. He continued with cycle 2 on 09/02/2019. His repeat protein electrophoresis at that time showed a decrease in the M protein to 0.9 g/dL. During that cycle, the Revlimid was again put on hold at day 8 due to a decrease in the neutrophil count and the platelet count. He continued with cycle 3 on 09/30/2019 and with cycle 4 on 10/28/2019. On his repeat protein electrophoresis studies prior to starting cycle 4 his M protein was undetectable. His IgA level had decreased to 61 mg/dL. He then underwent high-dose melphalan/autologous stem cell transplant at [facility] on 12/24/2019. He had his day 100 follow-up visit at [facility] on 04/05/2020. His bone marrow aspiration/biopsy showed normocellular bone marrow with multilineage hematopoiesis and no increase in plasma cells. He was then recommended to begin maintenance therapy with lenalidomide 10 mg daily on a 21/28-day schedule together with ixazomib 4 mg on days 1, 8, and 15 of a 28-day schedule. He has otherwise been in excellent health. He has had no other ongoing medical illnesses. He is a non-smoker. INTERIM HISTORY: He began cycle 1 of maintenance with lenalidomide/ixazomib on 04/27/2020. He tolerated it well and he then continued cycles at 4-week intervals. In May he also began his vaccination schedule. He began his 4th cycle of maintenance on 07/25/2020. As of his follow-up visit on 08/22/2020 his treatment was put on hold due to moderately severe neutropenia, ANC 800. 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 He had no complications with that procedure. As of his follow-up visit on 09/26/2020 he continued with cycle 5 of maintenance with the lenalidomide dosage reduced to 5 mg daily. As of 12/14/2020 he began his 8th cycle. He had a 1 year post transplant follow-up visit at [facility] on 12/23/2020. He was recommended to continue his maintenance therapy. In addition, it was recommended that he continue denosumab injections for bone health for a total of 2 years of treatment, scheduled to be completed in May 2021. It was further recommended to receive a single infusion of zoledronic acid at a 6-month interval, which will be October 2021. He is seen for a scheduled visit. He has been feeling good generally. He has pretty good energy and activity tolerance. ECOG score is 0. His appetite is good. He has no fever or night sweats. He has had no mouth sores. He has no shortness of breath, cough, or chest pain. He currently has no GI or complaints. He has some joint pain, mainly in the shoulders. He does not complain of headache or dizziness, and he has no focal neurologic symptoms. Medications: Acyclovir 1 Tablet (of 400 mg) Oral t.i.d., LORazepam 0.5 - 1 Tablet (of 1 mg) Oral t.i.d. PRN, Prochlorperazine Maleate 1 Tablet (of 10 mg) Oral q 4 hours PRN, Revlimid 1 (5 mg) Capsule Oral daily for 21 days Allergies: No Known Allergies. Vital Signs: Performed on Jan 16, 2021 16:19 Height - 74.00 in Weight - 193.4 lbs (HIGH) BSA - 2.14 sq.m BMI - 24.83 Temperature - 98.4 F Pulse - 80 /min Respiration - 18 /min BP - 155/83 mm(hg) (HIGH) O2 Sat - 99 % Pain - 0 Fatigue - 0 Physical Examination: Constitutional - He looks good generally, Eyes - Sclerae nonicteric. Conjunctivae clear, ENMT - No lesions noted in the oral cavity, Hematologic/Lymphatic - No cervical, clavicular, or axillary adenopathy, Respiratory - Lungs are clear with good air movement bilaterally, Cardiovascular - Heart rhythm is regular. There is no murmur, gallop, or rub noted, Abdomen - Soft. Liver and spleen are not enlarged. There is no abdominal mass or ascites noted and there is no inguinal adenopathy, Extremities - No edema, Neurologic - No focal neurologic deficits noted. Lab/Imaging: Test performed on Jan 09, 2021 10:05 Sodium 136 mmol/L Potassium 3.9 mmol/L Chloride 102 mmol/L CO2 26 mmol/L Anion Gap 11.9 BUN 16 mg/dL Creatinine 1.2 mg/dL Cr Clearance (Est) 69.9900 mL/min Glucose 78 mg/dL Osmolality - Calculated 282 mOsm/kg Calcium 8.9 mg/dL Protein, Total 6.8 g/dL Albumin 3.8 g/dL Globulin 3.0 g/dL Bilirubin, Total 0.4 mg/dL ALT (SGPT) 9 U/L AST (SGOT) 15 U/L Alkaline Phosphatase 73 IU/L WBC 3.8 10 3/uL RBC 4.00 10 6/uL HGB 13.3 g/dL HCT 39.4 % MCV 98.5 fl MCH 33.3 pg MCHC 33.8 g/dL RDW 14.4 % Platelet Count 89 10 3/cmm MPV 11.4 fL Neutrophils 1.46 10 3/uL Lymphocytes 1.2 10 3/uL Monocytes 0.7 10 3/uL Eosinophils 0.3 10 3/uL Basophils 0.1 10 3/uL Neutrophil % 38.7 % Lymphocyte % 32.8 % Monocyte % 19.0 % Eosinophil % 7.7 % Basophils % 1.3 % NRBC % 0 % [place] Free Light Chains 24.5 mg/L Lambda Free Light Chains 14.8 mg/L IgA 198 mg/dL [place]/Lambda Free Ratio 1.66 Problem List: 1. IgA lambda myeloma. He had mild anemia and mild renal impairment at initial diagnosis in May 2019. Bone marrow aspiration/biopsy showed involvement with lambda restricted plasma cells, estimated at 60% of the marrow cellularity, consistent with plasma cell neoplasm. There was no evidence for lytic bone disease on a skeletal survey or PET/CT, but MRI showed subtle changes in the thoracic and lumbar spine which were suspicious for involvement with myeloma. 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 2. On 06/02/2020 he suffered a traumatic fracture of the right clavicle and multiple rib fractures. 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 Problems Addressed with this Encounter and Plan: 1. Patient with IgA lambda myeloma. He had mild anemia and mild renal impairment at initial diagnosis in May 2019. Bone marrow aspiration/biopsy showed involvement with lambda restricted plasma cells, estimated at 60% of the marrow cellularity, consistent with plasma cell neoplasm. 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 There was no evidence for lytic bone disease on a skeletal survey or PET/CT, but MRI showed subtle changes in the thoracic and lumbar spine which were suspicious for involvement with myeloma. He began treatment with carfilzomib/Revlimid/dexamethasone on 08/05/2019. Due to the impaired renal function, the Revlimid was initiated at a reduced dosage of 15 mg daily on a 21/28-day schedule. During the first cycle his Revlimid was interrupted due to a skin eruption, but he was able to resume treatment with no recurrence of the eruption. During cycle 2 the Revlimid was put on hold at day 8 due to a decrease in the neutrophil count and the platelet count. The carfilzomib and dexamethasone were given on schedule and with no reductions. He then continued with cycle 3 on 09/30/2019 and with cycle 4 on 10/28/2019. He had a very good response to the treatment with his repeat protein electrophoresis at that point showing no detectable monoclonal protein and with his IgA level decreasing to 61 mg/dL compared to a pretreatment level of 3025 mg/dL. On 12/24/2019 he underwent high-dose melphalan/stem cell transplant at [facility]. He had an uneventful recovery following that procedure. His day 100 bone marrow aspiration/biopsy on 04/05/2020 showed normal cellular marrow with no increase in plasma cells. On 04/27/2020 he began cycle 1 of maintenance therapy with lenalidomide 10 mg daily on a 21/28-day schedule together with ixazomib 4 mg on days 1, 8, and 15 of a 28-day schedule. He tolerated that treatment well, and he then continued cycles at 4-week intervals. He began cycle 4 on 07/25/2020. As of 08/22/2020 his treatment was put on hold due to moderately severe neutropenia, ANC 800. He had uneventful recovery, but his maintenance therapy then remained on hold for an ORIF procedure for nonunion right clavicle fracture on 09/12/2020. As of 09/26/2020 he continued with his cycle 5 of maintenance therapy with the lenalidomide dosage reduced to 5 mg. He has now completed 8 cycles. He has continued to have moderately severe neutropenia with ANC 1400 along with mild thrombocytopenia, platelet count 89,000. He has otherwise been tolerating the treatment well, and thus far there has been no evidence of recurrence/progression of the myeloma. He will proceed now with cycle 9 of maintenance lenalidomide/ixazomib. The ixazomib dosage will now be reduced to 3 mg administered on days 1, 8, and 15. The lenalidomide dosage will remain the same at 5 mg daily on a 21/28-day schedule. He returns in 4 weeks. 2. He has been recommended to continue monthly denosumab injections for total of 2 years of treatment, scheduled to be completed in May 2021. He is further recommended to have a single infusion of zoledronic acid at a 6-month interval, which would be October 2021. He will be given denosumab 120 mg by subcutaneous injection today. Signed By: Olu Sanches M.D. <<Signature on File>>
== END 2021-01-16 06:34 | disposition home or self-care (01) ==
LOC: ONCMED 06:33
PROVIDERS: PCP Family Medicine; Visit Provider Internal Medicine Medical Oncology
DX: Z51.11 Encounter for antineoplastic chemotherapy (principal); C90.00 Multiple myeloma not having achieved remission; D64.9 Anemia, unspecified; N28.9 Disorder of kidney and ureter, unspecified; S42.001K Fracture of unspecified part of right clavicle, subsequent encounter for fracture with nonunion; S22.41XD Multiple fractures of ribs, right side, subsequent encounter for fracture with routine healing; Z79.899 Other long term (current) drug therapy
CPT/HCPCS: 96372; 99215; J0897

== ENCOUNTER 2021-02-13 07:51 | Outpatient (CLI) | payer MEDICARE, OTHER, SELFPAY ==
[2021-02-13 09:42] LABS: Basophils # 0.1 10^3/uL (0.0-0.1); Basophils % 1.5 %; Eosinophils # 0.2 10^3/uL (0.0-0.8); Eosinophils % 3.8 %; Hematocrit 38.8 % (42.0-52.0); Hemoglobin 13.1 g/dL (11.7-16.6); Lymphocytes # 1.4 10^3/uL (0.8-4.8); Lymphocytes % 35.5 %; Mean Corpuscular HGB Conc 33.8 g/dL (30.0-36.0); Mean Corpuscular Hemoglobin 33.5 pg (28.0-34.0); Mean Corpuscular Volume 99.2 fl (80-94); Mean Platelet Volume 10.3 fL (7.4-10.4); Monocytes # 0.7 10^3/uL (0.2-0.9); Monocytes % 17.5 %; Neutrophils # 1.63 10^3/uL (1.8-7.7); Neutrophils % 41.4 %; Nucleated Red Blood Cells % 0 %; Platelet Count 164 10^3/cmm (130-400); Red Blood Count 3.91 10^6/uL (4.1-5.3); Red Cell Distribution Width 14.6 % (12.1-15.1); White Blood Count 3.9 10^3/uL (4.0-10.0)
[2021-02-13 09:51] LABS: Alanine Aminotransferase 10 U/L (0-41); Albumin Level 3.6 g/dL (3.5-5.2); Alkaline Phosphatase 64 IU/L (40-130); Anion Gap 14.2 (5-19); Aspartate Amino Transferase 17 U/L (0-40); Blood Urea Nitrogen 17 mg/dL (8-23); Calcium 8.7 mg/dL (8.5-10.5); Carbon Dioxide 25 mmol/L (22-29); Chloride 105 mmol/L (98-107); Globulin 2.8 g/dL (1.3-4.6); Glucose 94 mg/dL (65-115); Osmolality Calculated 291 mOsm/kg (285-295); Potassium 4.2 mmol/L (3.5-5.1); Sodium 140 mmol/L (136-145); Total Bilirubin 0.6 mg/dL (0.15-1.2); Total Protein 6.4 g/dL (6.6-8.7)
[2021-02-13] MEDS: denosumab 120 mg SDV SUBCUT (10:35)
[2021-02-13 10:40] LABS: Immunoglobulin IGA 191 mg/dL (70-400); Immunoglobulin IGG 1108 mg/dL (700-1600)
[2021-02-13 10:52] LABS: Immunoglobulin IGM 21 mg/dL (40-230)
[2021-02-14 06:52] LABS: PROTEIN, TOTAL 6.3 g/dL (6.1-8.1)
[2021-02-14 11:57] LABS: KAPPA LIGHT CHAIN, FREE, SERUM 22.4 mg/L (3.3-19.4); KAPPA/LAMBDA LIGHT CHAINS FREE 1.62 (0.26-1.65); LAMBDA LIGHT CHAIN, FREE, SERU 13.8 mg/L (5.7-26.3)
[2021-02-14 14:32] LABS: ALBUMIN 3.7 g/dL (3.8-4.8); ALPHA 1 GLOBULIN 0.3 g/dL (0.2-0.3); ALPHA 2 GLOBULIN 0.7 g/dL (0.5-0.9); BETA 1 GLOBULIN 0.4 g/dL (0.4-0.6); BETA 2 GLOBULIN 0.3 g/dL (0.2-0.5)
--- NOTE | 2021-02-26 18:58 | ONC FU_ITS ---
[facility] Patient Note Patient: Nick Sheldon Unit #: [id number]: 1950 Dictated By: Michael LaguerreDate of Visit: Feb 13, 2021 Onc MED Follow-Up/Prog Note Chief Complaint: Myeloma. History of Present Illness: Mr Sheldon is a 70 year-old man with IgA lambda myeloma. He had been seen by Dr. Prado in April 2019 to establish primary care. His initial evaluation included a comprehensive metabolic profile on 04/13/2019 which showed elevated BUN and creatinine at 19 and 1.43 mg/dL and elevation of the calculated serum globulin at 4.4 g/dL. His further laboratory studies from 04/24/2019 included CBC showing hemoglobin 11.2 g with hematocrit 34%. The red cell indices were normal. The white blood cell count was 5200 and the platelet count was 185,000. His basic metabolic profile showed borderline renal function with BUN 19 and creatinine 1.46 mg/dL. Calcium was normal at 9.7 mg/dL. Protein electrophoresis showed an IgA lambda monoclonal protein which quantitated at 2.6 g/dL. A second M band measured 0.2 g/dL. The total protein was 8.0 g/dL and the albumin measured 3.8 g/dL. The quantitative immunoglobulin levels included IgA 3025 mg/dL, IgG 299 mg/dL, and IgM 14 mg/dL. The free light chain assay showed elevated lambda light chain at 39.1 mg/L with normal kappa light chain at 5.1 mg/L and decreased kappa/lambda ratio at 0.13. Dr Sanches had seen him initially on 05/26/2019. His further evaluation included a 24-hour urine protein electrophoresis which showed no monoclonal protein and a skeletal survey which showed no evidence for lytic bone lesions. He was then referred to [facility]. His bone marrow aspiration/biopsy on 06/05/2019 showed increased lambda restricted plasma cells estimated at 60% of the overall cellularity, consistent with plasma cell neoplasm. 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 Staging PET/CT on 06/13/2019 showed no evidence for active malignancy. He had further evaluation with MRI of the spine on 06/25/2019. The cervical spine showed some degenerative changes but no evidence for metastatic disease. There was mild heterogeneity throughout the vertebral bodies of the thoracic spine. There was no evidence for a destructive process, but involvement with myeloma was not excluded. There was also mild heterogeneity throughout the lumbar spine. Also noted was a mild [id number] pattern and there was a hypointense lesion noted along the superior endplate of the L2 vertebral body. That lesion did show enhancement and there was additional very mild enhancement involving the sacrum. Overall, the findings were suspicious for involvement with myeloma. With those findings, along with the anemia and renal impairment, he was recommended to begin treatment with carfilzomib/Revlimid/dexamethasone. He began cycle 1 of carfilzomib/Revlimid/dexamethasone on 08/05/2019. Due to the impaired renal function, the Revlimid was administered at a reduced dosage of 15 mg daily on a 21/28-day schedule. His 1st cycle was complicated by development of skin eruption, which improved with stopping the Revlimid. However, he was able to restart the Revlimid with no recurrence of the eruption. He continued with cycle 2 on 09/02/2019. His repeat protein electrophoresis at that time showed a decrease in the M protein to 0.9 g/dL. During that cycle, the Revlimid was again put on hold at day 8 due to a decrease in the neutrophil count and the platelet count. He continued with cycle 3 on 09/30/2019 and with cycle 4 on 10/28/2019. On his repeat protein electrophoresis studies prior to starting cycle 4 his M protein was undetectable. His IgA level had decreased to 61 mg/dL. He then underwent high-dose melphalan/autologous stem cell transplant at [facility] on 12/24/2019. He had his day 100 follow-up visit at [facility] on 04/05/2020. His bone marrow aspiration/biopsy showed normocellular bone marrow with multilineage hematopoiesis and no increase in plasma cells. He was then recommended to begin maintenance therapy with lenalidomide 10 mg daily on a 21/28-day schedule together with ixazomib 4 mg on days 1, 8, and 15 of a 28-day schedule. He has otherwise been in excellent health. He has had no other ongoing medical illnesses. He is a non-smoker. INTERIM HISTORY: He began cycle 1 of maintenance with lenalidomide/ixazomib on 04/27/2020. He tolerated it well and he then continued cycles at 4-week intervals. In May he also began his vaccination schedule. He began his 4th cycle of maintenance on 07/25/2020. As of his follow-up visit on 08/22/2020 his treatment was put on hold due to moderately severe neutropenia, ANC 800. 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 He had no complications with that procedure. As of his follow-up visit on 09/26/2020 he continued with cycle 5 of maintenance with the lenalidomide dosage reduced to 5 mg daily. As of 12/14/2020 he began his 8th cycle. He had a 1 year post transplant follow-up visit at [facility] on 12/23/2020. He was recommended to continue his maintenance therapy (lenalidomide/ixazomib). In addition, it was recommended that he continue denosumab injections for bone health for a total of 2 years of treatment, scheduled to be completed in May 2021. It was further recommended to receive a single infusion of zoledronic acid at a 6-month interval, which will be completed October 2021. Mr. Johnson is here today for follow-up. He continues on the lenalidomide 5 mg 21 out of 21 days and Ninlaro 3 mg day 1, 8 & 15. He is tolerating it well. He denies any new concerns. He denies any fever or chills. He denies any mouth sores, sore throat or difficulty swallowing. He denies any hand or skin changes. He states that his breathing is good. He does remain knee very active. He states he has been working all day long and tolerating this well. He states his appetite is good. He denies any headache or vision changes. He states he has not had any mouth sores, sore throat or difficulty swallowing. He denies nausea or vomiting. He does not have any esophagitis symptoms that he speaks of today. He denies any diarrhea. States he has occasional constipation but has it controlled with [id number] stool softeners and laxatives as needed. He states overall he thinks he is doing well. He is ECOG is 0. Past Medical History: He has had ongoing medical illnesses. Past Surgical History: Covid #2 in 2020 COVID VAC in 2020 Colonoscopy in 2008 Allergies: No Known Allergies. Medications: Acyclovir 1 Tablet (of 400 mg) Oral t.i.d. LORazepam 0.5 - 1 Tablet (of 1 mg) Oral t.i.d. PRN Prochlorperazine Maleate 1 Tablet (of 10 mg) Oral q 4 hours PRN Revlimid 1 (5 mg) Capsule Oral daily for 21 days Family History: Mr. Sheldon's mother is alive. Mr. Sheldon's father at age 79: prostate cancer. Mr. Sheldon has 2 brothers: 2 alive. He has 1 sister who is . Father of prostate cancer at age 79. Mother is still living at age 94 and is in reasonably good health. A sister with complications of mental retardation. Two brothers are still living. One has valvular heart disease. Social History: Mr. Sheldon is and he is retired. Mr. Sheldon has never smoked. He has no history of drinking. Mr. Sheldon reports the following support systems: lives with spouse, significant other, family, or friends, lives in own house, supportive family/friends willing to assist with needs, and adequate transportation available for expected visits. His diet consists of regular meals. He indicates his activity level as: regular exercise. 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 He is a non-smoker. He does not drink alcohol. Review Of Symptoms: <See Above> Vital Signs: Performed on Feb 13, 2021 09:55 Height - 74.00 in Weight - 194.6 lbs (HIGH) BSA - 2.15 sq.m BMI - 24.99 Temperature - 97.5 F (LOW) Pulse - 65 /min Respiration - 18 /min BP - 154/78 mm(hg) (HIGH) O2 Sat - 96 % Pain - 0 Fatigue - 0,0 - Fully active, able to carry on all predisease activities without restrictions. (ECOG) Physical Examination: Constitutional Alert, oriented, no acute distress. Skin pink, warm and dry. Head Normocephalic; atraumatic. Eyes Conjunctivae and sclerae are clear and without icterus. Pupils are reactive and equal. ENMT No oral exudates, ulcers, masses, thrush or mucositis. Oropharynx clear. Tongue normal. Neck Supple without masses or thyromegaly. No jugular venous distension. Hematologic/Lymphatic No petechiae or purpura. Respiratory Lungs are clear to auscultation without rhonchi or wheezing. Cardiovascular Regular rate and rhythm of heart without murmurs,clicks, gallops or rubs. Abdomen Non-tender, non-distended, no masses or ascites. Good bowel sounds noted in all quads. No guarding or rebound tenderness. No pulsatile masses. Back/Spine Non-tender to palpation. Extremities No visible deformities, no cyanosis, clubbing or edema. Musculoskeletal No tenderness or swelling, normal range of motion without obvious weakness. Integumentary No rashes or lesions. Neurologic No sensory or motor deficits, normal cerebellar function, normal gait. Psychiatric Alert and oriented times three. Coherent speech. Verbalizes understanding of our discussions today. Laboratory:Test performed on Feb 13, 2021 08:15 Sodium 140 mmol/L Potassium 4.2 mmol/L Chloride 105 mmol/L CO2 25 mmol/L Anion Gap 14.2 BUN 17 mg/dL Creatinine 1.2 mg/dL Cr Clearance (Est) 70.49 mL/min Glucose 94 mg/dL Osmolality - Calculated 291 mOsm/kg Calcium 8.7 mg/dL Protein, Total 6.4 g/dL Albumin 3.6 g/dL Globulin 2.8 g/dL Bilirubin, Total 0.6 mg/dL ALT (SGPT) 10 U/L AST (SGOT) 17 U/L Alkaline Phosphatase 64 IU/L WBC 3.9 10 3/uL RBC 3.91 10 6/uL HGB 13.1 g/dL HCT 38.8 % MCV 99.2 fl MCH 33.5 pg MCHC 33.8 g/dL RDW 14.6 % Platelet Count 164 10 3/cmm MPV 10.3 fL Neutrophils 1.63 10 3/uL Lymphocytes 1.4 10 3/uL Monocytes 0.7 10 3/uL Eosinophils 0.2 10 3/uL Basophils 0.1 10 3/uL Neutrophil % 41.4 % Lymphocyte % 35.5 % Monocyte % 17.5 % Eosinophil % 3.8 % Basophils % 1.5 % NRBC % 0 % IgA 191 mg/dL Preston Free Light Chains 22.4 mg/L Lambda Free Light Chains 13.8 mg/L Preston/Lambda Free Ratio 1.62 Test performed on Nov 04, 2020 13:04 TSH 2.045 uU/mL Test performed on Nov 03, 2020 08:24 CBC Slide Review Slide Review Perform SLIDE REVIEWED AGREES WITH AUTO RESULT Test performed on Aug 31, 2020 10:15 IgG 1104 mg/dL IgM < 25 mg/dL Impression: 1. IgA lambda myeloma. He had mild anemia and mild renal impairment at initial diagnosis in May 2019. Bone marrow aspiration/biopsy showed involvement with lambda restricted plasma cells, estimated at 60% of the marrow cellularity, consistent with plasma cell neoplasm. There was no evidence for lytic bone disease on a skeletal survey or PET/CT, but MRI showed subtle changes in the thoracic and lumbar spine which were suspicious for involvement with myeloma. 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 2. On 06/02/2020 he suffered a traumatic fracture of the right clavicle and multiple rib fractures. 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 Plan/Problems Addressed at this Visit: 1. IgA lambda myeloma. He had mild anemia and mild renal impairment at initial diagnosis in May 2019. Bone marrow aspiration/biopsy showed involvement with lambda restricted plasma cells, estimated at 60% of the marrow cellularity, consistent with plasma cell neoplasm. 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 There was no evidence for lytic bone disease on a skeletal survey or PET/CT, but MRI showed subtle changes in the thoracic and lumbar spine which were suspicious for involvement with myeloma. He began treatment with carfilzomib/Revlimid/dexamethasone on 08/05/2019. Due to the impaired renal function, the Revlimid was initiated at a reduced dosage of 15 mg daily on a 21/28-day schedule. During the first cycle his Revlimid was interrupted due to a skin eruption, but he was able to resume treatment with no recurrence of the eruption. During cycle 2 the Revlimid was put on hold at day 8 due to a decrease in the neutrophil count and the platelet count. The carfilzomib and dexamethasone were given on schedule and with no reductions. He then continued with cycle 3 on 09/30/2019 and with cycle 4 on 10/28/2019. He had a very good response to the treatment with his repeat protein electrophoresis at that point showing no detectable monoclonal protein and with his IgA level decreasing to 61 mg/dL compared to a pretreatment level of 3025 mg/dL. On 12/24/2019 he underwent high-dose melphalan/stem cell transplant at [facility]. He had an uneventful recovery following that procedure. His day 100 bone marrow aspiration/biopsy on 04/05/2020 showed normal cellular marrow with no increase in plasma cells. On 04/27/2020 he began cycle 1 of maintenance therapy with lenalidomide 10 mg daily on a 21/28-day schedule together with ixazomib 4 mg on days 1, 8, and 15 of a 28-day schedule. He tolerated that treatment well, and he then continued cycles at 4-week intervals. He began cycle 4 on 07/25/2020. As of 08/22/2020 his treatment was put on hold due to moderately severe neutropenia, ANC 800. He had uneventful recovery, but his maintenance therapy then remained on hold for an ORIF procedure for nonunion right clavicle fracture on 09/12/2020. As of 09/26/2020 he continued with his cycle 5 of maintenance therapy with the lenalidomide dosage reduced to 5 mg. He has now completed 8 cycles. He has continued to have moderately severe neutropenia with ANC 1400 along with mild thrombocytopenia, platelet count 89,000. He has otherwise been tolerating the treatment well, and thus far there has been no evidence of recurrence/progression of the myeloma. A. Proceed with cycle 10 of maintenance lenalidomide/ixazomib. The ixazomib dosage will now be reduced to 3 mg administered on days 1, 8, and 15. The lenalidomide dosage will remain the same at 5 mg daily on a 21/28-day schedule. B. Labs from today were reviewed in detail discussed with Shara Monalisa and a copy was given to him. WBC 3.9, hemoglobin 13.1, platelets 1 64,000, ANC is 1630. Random glucose 94 potassium 4.2 creatinine 1.2 which is stable. LFTs are normal. Weight is stable at 194.6. C. Will plan for follow-up in 4 weeks with CBC CMP, SPEP, QUIGS, kappa free light chain assay. D. Mr. Sheldon was encouraged to contact us in interim should questions or problems arise. E. It is noted that his kappa free light chain on January 09, 2021 was 24.5, lambda free light chain was 14.8 and kappa lambda free ratio was 1.66. His IgG was 198. His kappa free light chain today is 22.4, lambda free light chain 13.8 and kappa lambda ratio was 1.62. His IgA is 191. His SPEP does not show any protein abnormalities. 2. He has been recommended to continue monthly denosumab injections for total of 2 years of treatment, scheduled to be completed in May 2021. His first dose of denosumab was April 27, 2020 at [facility]. He is further recommended to have a single infusion of zoledronic acid at a 6-month interval, which would be due October 2021. He will be given denosumab 120 mg by subcutaneous injection today. His last dose was January 16, 2021. Signed By: Michael Laugerre <<Signature on File>>
== END 2021-02-13 07:52 | disposition home or self-care (01) ==
LOC: ONCMED 07:53
PROVIDERS: PCP Family Medicine; Visit Provider Internal Medicine Medical Oncology
DX: C90.00 Multiple myeloma not having achieved remission (principal); D47.2 Monoclonal gammopathy; D70.1 Agranulocytosis secondary to cancer chemotherapy; T45.1X5D Adverse effect of antineoplastic and immunosuppressive drugs, subsequent encounter; D64.9 Anemia, unspecified; Z79.899 Other long term (current) drug therapy
CPT/HCPCS: 36415; 80053; 82784; 83883; 84155; 84165; 85025; 96372; 99215; J0897

== ENCOUNTER 2021-03-13 08:16 | Outpatient (CLI) | payer MEDICARE, OTHER, SELFPAY ==
[2021-03-13 08:46] LABS: Basophils # 0.1 10^3/uL (0.0-0.1); Basophils % 1.5 %; Eosinophils # 0.4 10^3/uL (0.0-0.8); Eosinophils % 10.6 %; Hematocrit 40.6 % (42.0-52.0); Hemoglobin 13.9 g/dL (11.7-16.6); Lymphocytes # 1.7 10^3/uL (0.8-4.8); Lymphocytes % 42.6 %; Mean Corpuscular HGB Conc 34.2 g/dL (30.0-36.0); Mean Corpuscular Hemoglobin 33.7 pg (28.0-34.0); Mean Corpuscular Volume 98.5 fl (80-94); Mean Platelet Volume 10.2 fL (7.4-10.4); Monocytes # 0.7 10^3/uL (0.2-0.9); Monocytes % 16.7 %; Neutrophils # 1.15 10^3/uL (1.8-7.7); Neutrophils % 28.4 %; Nucleated Red Blood Cells % 0 %; Platelet Count 164 10^3/cmm (130-400); Red Blood Count 4.12 10^6/uL (4.1-5.3); Red Cell Distribution Width 14.5 % (12.1-15.1); White Blood Count 4.1 10^3/uL (4.0-10.0)
[2021-03-13 09:08] LABS: Alanine Aminotransferase 10 U/L (0-41); Albumin Level 3.9 g/dL (3.5-5.2); Alkaline Phosphatase 74 IU/L (40-130); Anion Gap 16.4 (5-19); Aspartate Amino Transferase 14 U/L (0-40); Blood Urea Nitrogen 18 mg/dL (8-23); Calcium 8.6 mg/dL (8.5-10.5); Carbon Dioxide 24 mmol/L (22-29); Chloride 104 mmol/L (98-107); Globulin 2.8 g/dL (1.3-4.6); Glucose 107 mg/dL (65-115); Immunoglobulin IGA 208 mg/dL (70-400); Immunoglobulin IGG 1190 mg/dL (700-1600); Osmolality Calculated 292 mOsm/kg (285-295); Potassium 4.4 mmol/L (3.5-5.1); Sodium 140 mmol/L (136-145); Total Bilirubin 0.3 mg/dL (0.15-1.2); Total Protein 6.7 g/dL (6.6-8.7)
[2021-03-13 09:29] LABS: Immunoglobulin IGM 23 mg/dL (40-230)
[2021-03-13] MEDS: denosumab 120 mg SDV SUBCUT (10:26)
[2021-03-14 08:32] LABS: PROTEIN, TOTAL 6.7 g/dL (6.1-8.1)
[2021-03-14 14:43] LABS: KAPPA/LAMBDA LIGHT CHAINS FREE 1.54 (0.26-1.65); LAMBDA LIGHT CHAIN, FREE, SERU 14.3 mg/L (5.7-26.3)
[2021-03-15 09:49] LABS: ALBUMIN 3.8 g/dL (3.8-4.8); ALPHA 1 GLOBULIN 0.3 g/dL (0.2-0.3); ALPHA 2 GLOBULIN 0.8 g/dL (0.5-0.9); BETA 1 GLOBULIN 0.4 g/dL (0.4-0.6); BETA 2 GLOBULIN 0.4 g/dL (0.2-0.5); GAMMA GLOBULIN 1.1 g/dL (0.8-1.7)
--- NOTE | 2021-03-17 14:03 | ONC FU_ITS ---
Dr. Sanches Patient Follow-Up Note Patient: Nick Sheldon Unit #: [id number]: 1950 Dicatated By: Olu Sanches M.D.Date of Visit:Mar 13, 2021 Onc Med Follow-up/Prog Note Chief Complaint: Myeloma. History of Present Illness: This is a 70 year-old man with IgA lambda myeloma. He had been seen by Dr. Prado in April 2019 to establish primary care. His initial evaluation included a comprehensive metabolic profile on 04/13/2019 which showed elevated BUN and creatinine at 19 and 1.43 mg/dL and elevation of the calculated serum globulin at 4.4 g/dL. His further laboratory studies from 04/24/2019 included CBC showing hemoglobin 11.2 g with hematocrit 34%. The red cell indices were normal. The white blood cell count was 5200 and the platelet count was 185,000. His basic metabolic profile showed borderline renal function with BUN 19 and creatinine 1.46 mg/dL. Calcium was normal at 9.7 mg/dL. Protein electrophoresis showed an IgA lambda monoclonal protein which quantitated at 2.6 g/dL. A second M band measured 0.2 g/dL. The total protein was 8.0 g/dL and the albumin measured 3.8 g/dL. The quantitative immunoglobulin levels included IgA 3025 mg/dL, IgG 299 mg/dL, and IgM 14 mg/dL. The free light chain assay showed elevated lambda light chain at 39.1 mg/L with normal kappa light chain at 5.1 mg/L and decreased kappa/lambda ratio at 0.13. I had seen him initially on 05/26/2019. His further evaluation included a 24-hour urine protein electrophoresis which showed no monoclonal protein and a skeletal survey which showed no evidence for lytic bone lesions. He was then referred to [facility]. His bone marrow aspiration/biopsy on 06/05/2019 showed increased lambda restricted plasma cells estimated at 60% of the overall cellularity, consistent with plasma cell neoplasm. 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 Staging PET/CT on 06/13/2019 showed no evidence for active malignancy. He had further evaluation with MRI of the spine on 06/25/2019. The cervical spine showed some degenerative changes but no evidence for metastatic disease. There was mild heterogeneity throughout the vertebral bodies of the thoracic spine. There was no evidence for a destructive process, but involvement with myeloma was not excluded. There was also mild heterogeneity throughout the lumbar spine. Also noted was a mild [id number] pattern and there was a hypointense lesion noted along the superior endplate of the L2 vertebral body. That lesion did show enhancement and there was additional very mild enhancement involving the sacrum. Overall, the findings were suspicious for involvement with myeloma. With those findings, along with the anemia and renal impairment, he was recommended to begin treatment with carfilzomib/Revlimid/dexamethasone. He began cycle 1 of carfilzomib/Revlimid/dexamethasone on 08/05/2019. Due to the impaired renal function, the Revlimid was administered at a reduced dosage of 15 mg daily on a 21/28-day schedule. His 1st cycle was complicated by development of skin eruption, which improved with stopping the Revlimid. However, he was able to restart the Revlimid with no recurrence of the eruption. He continued with cycle 2 on 09/02/2019. His repeat protein electrophoresis at that time showed a decrease in the M protein to 0.9 g/dL. During that cycle, the Revlimid was again put on hold at day 8 due to a decrease in the neutrophil count and the platelet count. He continued with cycle 3 on 09/30/2019 and with cycle 4 on 10/28/2019. On his repeat protein electrophoresis studies prior to starting cycle 4 his M protein was undetectable. His IgA level had decreased to 61 mg/dL. He then underwent high-dose melphalan/autologous stem cell transplant at [facility] on 12/24/2019. He had his day 100 follow-up visit at [facility] on 04/05/2020. His bone marrow aspiration/biopsy showed normocellular bone marrow with multilineage hematopoiesis and no increase in plasma cells. He was then recommended to begin maintenance therapy with lenalidomide 10 mg daily on a 21/28-day schedule together with ixazomib 4 mg on days 1, 8, and 15 of a 28-day schedule. He has otherwise been in excellent health. He has had no other ongoing medical illnesses. He is a non-smoker. INTERIM HISTORY: He began cycle 1 of maintenance with lenalidomide/ixazomib on 04/27/2020. He tolerated it well and he then continued cycles at 4-week intervals. In May he also began his vaccination schedule. He began his 4th cycle of maintenance on 07/25/2020. As of his follow-up visit on 08/22/2020 his treatment was put on hold due to moderately severe neutropenia, ANC 800. 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 He had no complications with that procedure. As of 09/26/2020 he was able to restart treatment with maintenance cycle 5 with the lenalidomide dosage reduced to 5 mg daily. He had a 1 year post transplant follow-up visit at [facility] on 12/23/2020. He was recommended to continue his maintenance therapy. In addition, it was recommended that he continue denosumab injections for bone health for a total of 2 years of treatment, scheduled to be completed in May 2021. He was also recommended to receive a single infusion of zoledronic acid at a 6-month interval, which would be October 2021. He is seen for a follow-up visit. He says he has been feeling great. He is having no side effects with his treatment. He has good energy and activity tolerance. His ECOG score is 0. His appetite is good. He has no fever or night sweats. He has not had sore mouth or throat. He does not complain of cough, and he has not been having shortness of breath or chest pain. He has no GI or complaints. He is not having any significant joint or bone pain. He does not complain of headache or dizziness, and he has no focal neurologic symptoms. Medications: Acyclovir 1 Tablet (of 400 mg) Oral t.i.d., LORazepam 0.5 - 1 Tablet (of 1 mg) Oral t.i.d. PRN, Prochlorperazine Maleate 1 Tablet (of 10 mg) Oral q 4 hours PRN, Revlimid 1 (5 mg) Capsule Oral daily for 21 days Allergies: No Known Allergies. Vital Signs: Performed on Mar 13, 2021 11:36 Height - 74.00 in Weight - 197.0 lbs (HIGH) BSA - 2.16 sq.m BMI - 25.29 Temperature - 97.6 F (LOW) Pulse - 72 /min Respiration - 16 /min BP - 184/88 mm(hg) (HIGH) O2 Sat - 98 % Pain - 0 Fatigue - 9 Physical Examination: Constitutional - He looks good generally, Eyes - Sclerae nonicteric. Conjunctivae clear, ENMT - No lesions noted in the oral cavity, Hematologic/Lymphatic - No cervical, clavicular, or axillary adenopathy, Respiratory - Lungs are clear with good air movement bilaterally, Cardiovascular - Heart rhythm is regular. There is no murmur, gallop, or rub noted, Abdomen - Soft. Liver and spleen are not enlarged. There is no abdominal mass or ascites noted and there is no inguinal adenopathy, Extremities - No edema, Neurologic - No focal neurologic deficits noted. Lab/Imaging: Test performed on Mar 13, 2021 08:33 Sodium 140 mmol/L Potassium 4.4 mmol/L Chloride 104 mmol/L CO2 24 mmol/L Anion Gap 16.4 BUN 18 mg/dL Creatinine 1.1 mg/dL Cr Clearance (Est) 77.8500 mL/min Glucose 107 mg/dL Osmolality - Calculated 292 mOsm/kg Calcium 8.6 mg/dL Protein, Total 6.7 g/dL Albumin 3.9 g/dL Globulin 2.8 g/dL Bilirubin, Total 0.3 mg/dL ALT (SGPT) 10 U/L AST (SGOT) 14 U/L Alkaline Phosphatase 74 IU/L WBC 4.1 10 3/uL RBC 4.12 10 6/uL HGB 13.9 g/dL HCT 40.6 % MCV 98.5 fl MCH 33.7 pg MCHC 34.2 g/dL RDW 14.5 % Platelet Count 164 10 3/cmm MPV 10.2 fL Neutrophils 1.15 10 3/uL Lymphocytes 1.7 10 3/uL Monocytes 0.7 10 3/uL Eosinophils 0.4 10 3/uL Basophils 0.1 10 3/uL Neutrophil % 28.4 % Lymphocyte % 42.6 % Monocyte % 16.7 % Eosinophil % 10.6 % Basophils % 1.5 % NRBC % 0 % IgA 208 mg/dL [facility] Free Light Chains 22.0 mg/L Lambda Free Light Chains 14.3 mg/L Parkway/Lambda Free Ratio 1.54 Problem List: 1. IgA lambda myeloma. He had mild anemia and mild renal impairment at initial diagnosis in May 2019. Bone marrow aspiration/biopsy showed involvement with lambda restricted plasma cells, estimated at 60% of the marrow cellularity, consistent with plasma cell neoplasm. There was no evidence for lytic bone disease on a skeletal survey or PET/CT, but MRI showed subtle changes in the thoracic and lumbar spine which were suspicious for involvement with myeloma. 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 2. On 06/02/2020 he suffered a traumatic fracture of the right clavicle and multiple rib fractures. 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 Problems Addressed with this Encounter and Plan: 1. Patient with IgA lambda myeloma. He had mild anemia and mild renal impairment at initial diagnosis in May 2019. Bone marrow aspiration/biopsy showed involvement with lambda restricted plasma cells, estimated at 60% of the marrow cellularity, consistent with plasma cell neoplasm. 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 There was no evidence for lytic bone disease on a skeletal survey or PET/CT, but MRI showed subtle changes in the thoracic and lumbar spine which were suspicious for involvement with myeloma. He began treatment with carfilzomib/Revlimid/dexamethasone on 08/05/2019. Due to the impaired renal function, the Revlimid was initiated at a reduced dosage of 15 mg daily on a 21/28-day schedule. During the first cycle his Revlimid was interrupted due to a skin eruption, but he was able to resume treatment with no recurrence of the eruption. During cycle 2 the Revlimid was put on hold at day 8 due to a decrease in the neutrophil count and the platelet count. The carfilzomib and dexamethasone were given on schedule and with no reductions. He then continued with cycle 3 on 09/30/2019 and with cycle 4 on 10/28/2019. He had a very good response to the treatment with his repeat protein electrophoresis at that point showing no detectable monoclonal protein and with his IgA level decreasing to 61 mg/dL compared to a pretreatment level of 3025 mg/dL. On 12/24/2019 he underwent high-dose melphalan/stem cell transplant at [facility]. He had an uneventful recovery following that procedure. His day 100 bone marrow aspiration/biopsy on 04/05/2020 showed normal cellular marrow with no increase in plasma cells. On 04/27/2020 he began cycle 1 of maintenance therapy with lenalidomide 10 mg daily on a 21/28-day schedule together with ixazomib 4 mg on days 1, 8, and 15 of a 28-day schedule. He tolerated that treatment well, and he then continued cycles at 4-week intervals. He began cycle 4 on 07/25/2020. As of 08/22/2020 his treatment was put on hold due to moderately severe neutropenia, ANC 800. He had uneventful recovery, but his maintenance therapy then remained on hold for an ORIF procedure for nonunion right clavicle fracture on 09/12/2020. As of 09/26/2020 he continued with his cycle 5 of maintenance therapy with the lenalidomide dosage reduced to 5 mg. He has since then continued treatment at 4-week intervals. He has continued to have mild to moderately severe neutropenia and intermittently has had mild thrombocytopenia. Overall, he has been tolerating treatment very well, thus far with no evidence of recurrence/progression of the myeloma. He will continue his maintenance therapy with lenalidomide 5 mg daily for 21 days together with ixazomib 4 mg on days 1, 8, and 15 of a 28-day schedule. He will be scheduled for a follow-up visit in 12 weeks. 2. He has been recommended to continue monthly denosumab injections for total of 2 years of treatment, scheduled to be completed in May 2021. He will be given denosumab 120 mg by subcutaneous injection today, and he return for injections monthly for the next 2 months. Signed By: Olu Sanches M.D. <<Signature on File>>
== END 2021-03-13 08:17 | disposition home or self-care (01) ==
LOC: ONCMED 08:17
PROVIDERS: PCP Family Medicine; Visit Provider Internal Medicine Medical Oncology
DX: Z51.11 Encounter for antineoplastic chemotherapy (principal); C90.00 Multiple myeloma not having achieved remission; D64.9 Anemia, unspecified; N28.9 Disorder of kidney and ureter, unspecified; Z87.828 Personal history of other (healed) physical injury and trauma; Z79.899 Other long term (current) drug therapy
CPT/HCPCS: 36415; 80053; 82784; 83883; 84155; 84165; 85025; 96372; 99214; J0897

== ENCOUNTER 2021-04-10 08:02 | Outpatient (CLI) | payer MEDICARE, OTHER, SELFPAY ==
[2021-04-10] MEDS: denosumab 120 mg SDV SUBCUT (08:16)
[2021-04-10 08:38] LABS: Basophils # 0.1 10^3/uL (0.0-0.1); Basophils % 1.4 %; Eosinophils # 0.2 10^3/uL (0.0-0.8); Hematocrit 39.5 % (42.0-52.0); Hemoglobin 13.3 g/dL (11.7-16.6); Lymphocytes # 1.5 10^3/uL (0.8-4.8); Lymphocytes % 40.5 %; Mean Corpuscular HGB Conc 33.7 g/dL (30.0-36.0); Mean Corpuscular Hemoglobin 34.1 pg (28.0-34.0); Mean Corpuscular Volume 101.3 fl (80-94); Mean Platelet Volume 10.5 fL (7.4-10.4); Monocytes # 0.6 10^3/uL (0.2-0.9); Monocytes % 17.1 %; Neutrophils # 1.28 10^3/uL (1.8-7.7); Neutrophils % 34.7 %; Nucleated Red Blood Cells % 0 %; Platelet Count 146 10^3/cmm (130-400); Red Cell Distribution Width 14.7 % (12.1-15.1); White Blood Count 3.7 10^3/uL (4.0-10.0)
[2021-04-10 08:59] LABS: Alanine Aminotransferase 11 U/L (0-41); Albumin Level 4.1 g/dL (3.5-5.2); Alkaline Phosphatase 81 IU/L (40-130); Anion Gap 13.1 (5-19); Aspartate Amino Transferase 18 U/L (0-40); Blood Urea Nitrogen 13 mg/dL (8-23); Calcium 8.6 mg/dL (8.5-10.5); Carbon Dioxide 27 mmol/L (22-29); Chloride 104 mmol/L (98-107); Globulin 2.5 g/dL (1.3-4.6); Glucose 82 mg/dL (65-115); Osmolality Calculated 289 mOsm/kg (285-295); Potassium 4.1 mmol/L (3.5-5.1); Sodium 140 mmol/L (136-145); Total Bilirubin 0.5 mg/dL (0.15-1.2); Total Protein 6.6 g/dL (6.6-8.7)
== END 2021-04-10 08:03 | disposition home or self-care (01) ==
LOC: ONCMED 08:05
PROVIDERS: PCP Family Medicine; Visit Provider Internal Medicine Medical Oncology
DX: Z51.11 Encounter for antineoplastic chemotherapy (principal); C90.01 Multiple myeloma in remission; D47.2 Monoclonal gammopathy; D70.1 Agranulocytosis secondary to cancer chemotherapy; T45.1X5A Adverse effect of antineoplastic and immunosuppressive drugs, initial encounter
CPT/HCPCS: 36415; 80053; 85025; 96372; J0897

== ENCOUNTER 2021-05-08 07:53 | Outpatient (CLI) | payer MEDICARE, OTHER, SELFPAY ==
[2021-05-08] MEDS: denosumab 120 mg SDV SUBCUT (08:18)
[2021-05-08 08:38] LABS: Basophils # 0.1 10^3/uL (0.0-0.1); Basophils % 1.5 %; Eosinophils # 0.1 10^3/uL (0.0-0.8); Eosinophils % 3.8 %; Hematocrit 37.9 % (42.0-52.0); Hemoglobin 12.9 g/dL (11.7-16.6); Lymphocytes # 1.2 10^3/uL (0.8-4.8); Lymphocytes % 36.1 %; Mean Corpuscular Hemoglobin 33.9 pg (28.0-34.0); Mean Corpuscular Volume 99.7 fl (80-94); Mean Platelet Volume 10.6 fL (7.4-10.4); Monocytes # 0.6 10^3/uL (0.2-0.9); Neutrophils # 1.36 10^3/uL (1.8-7.7); Neutrophils % 40.3 %; Nucleated Red Blood Cells % 0 %; Platelet Count 126 10^3/cmm (130-400); White Blood Count 3.4 10^3/uL (4.0-10.0)
[2021-05-08 09:19] LABS: Alanine Aminotransferase 11 U/L (0-41); Albumin Level 4.1 g/dL (3.5-5.2); Alkaline Phosphatase 67 IU/L (40-130); Anion Gap 13.2 (5-19); Aspartate Amino Transferase 17 U/L (0-40); Blood Urea Nitrogen 19 mg/dL (8-23); Calcium 8.7 mg/dL (8.5-10.5); Carbon Dioxide 26 mmol/L (22-29); Chloride 104 mmol/L (98-107); Globulin 2.5 g/dL (1.3-4.6); Glucose 124 mg/dL (65-115); Osmolality Calculated 292 mOsm/kg (285-295); Potassium 4.2 mmol/L (3.5-5.1); Sodium 139 mmol/L (136-145); Total Bilirubin 0.4 mg/dL (0.15-1.2); Total Protein 6.6 g/dL (6.6-8.7)
== END 2021-05-08 07:54 | disposition home or self-care (01) ==
PROVIDERS: PCP Family Medicine; Visit Provider Internal Medicine Medical Oncology
DX: Z51.11 Encounter for antineoplastic chemotherapy (principal); C90.00 Multiple myeloma not having achieved remission; D47.2 Monoclonal gammopathy; D70.1 Agranulocytosis secondary to cancer chemotherapy; T45.1X5A Adverse effect of antineoplastic and immunosuppressive drugs, initial encounter; Z79.899 Other long term (current) drug therapy
CPT/HCPCS: 36415; 80053; 85025; 96372; J0897

== ENCOUNTER 2021-06-01 07:57 | Outpatient (CLI) | payer MEDICARE, OTHER, SELFPAY ==
[2021-06-01 08:57] LABS: Basophils % 0.9 %; Eosinophils # 0.1 10^3/uL (0.0-0.8); Eosinophils % 4.2 %; Hematocrit 38.9 % (42.0-52.0); Hemoglobin 13.1 g/dL (11.7-16.6); Lymphocytes # 1.2 10^3/uL (0.8-4.8); Lymphocytes % 36.7 %; Mean Corpuscular HGB Conc 33.7 g/dL (30.0-36.0); Mean Corpuscular Hemoglobin 33.9 pg (28.0-34.0); Mean Corpuscular Volume 100.5 fl (80-94); Mean Platelet Volume 11.2 fL (7.4-10.4); Monocytes # 0.6 10^3/uL (0.2-0.9); Neutrophils # 1.37 10^3/uL (1.8-7.7); Neutrophils % 40.9 %; Nucleated Red Blood Cells % 0 %; Platelet Count 117 10^3/cmm (130-400); Red Blood Count 3.87 10^6/uL (4.1-5.3); Red Cell Distribution Width 14.6 % (12.1-15.1); White Blood Count 3.4 10^3/uL (4.0-10.0)
[2021-06-01 09:21] LABS: Alanine Aminotransferase 15 U/L (0-41); Albumin Level 4.3 g/dL (3.5-5.2); Alkaline Phosphatase 62 IU/L (40-130); Aspartate Amino Transferase 24 U/L (0-40); Blood Urea Nitrogen 22 mg/dL (8-23); Calcium 8.6 mg/dL (8.5-10.5); Carbon Dioxide 25 mmol/L (22-29); Chloride 105 mmol/L (98-107); Globulin 2.7 g/dL (1.3-4.6); Glucose 111 mg/dL (65-115); Immunoglobulin IGA 231 mg/dL (70-400); Immunoglobulin IGG 1201 mg/dL (700-1600); Osmolality Calculated 294 mOsm/kg (285-295); Sodium 140 mmol/L (136-145); Total Bilirubin 0.6 mg/dL (0.15-1.2)
[2021-06-01 09:33] LABS: Immunoglobulin IGM 26 mg/dL (40-230)
[2021-06-02 12:22] LABS: PROTEIN, TOTAL 6.9 g/dL (6.1-8.1)
[2021-06-02 16:08] LABS: ALBUMIN 3.9 g/dL (3.8-4.8); ALPHA 1 GLOBULIN 0.3 g/dL (0.2-0.3); ALPHA 2 GLOBULIN 0.7 g/dL (0.5-0.9); BETA 1 GLOBULIN 0.4 g/dL (0.4-0.6); BETA 2 GLOBULIN 0.4 g/dL (0.2-0.5); GAMMA GLOBULIN 1.2 g/dL (0.8-1.7)
[2021-06-02 16:22] LABS: KAPPA LIGHT CHAIN, FREE, SERUM 23.8 mg/L (3.3-19.4); KAPPA/LAMBDA LIGHT CHAINS FREE 1.48 (0.26-1.65); LAMBDA LIGHT CHAIN, FREE, SERU 16.1 mg/L (5.7-26.3)
== END 2021-06-01 07:58 | disposition home or self-care (01) ==
PROVIDERS: PCP Family Medicine; Visit Provider Internal Medicine Medical Oncology
DX: C90.00 Multiple myeloma not having achieved remission (principal); D47.2 Monoclonal gammopathy; D64.9 Anemia, unspecified; Z79.899 Other long term (current) drug therapy
CPT/HCPCS: 36415; 80053; 82784; 83883; 84155; 84165; 85025

== ENCOUNTER 2021-06-02 11:33 | Outpatient (CLI) | payer MEDICARE, OTHER, SELFPAY ==
[2021-06-03 17:32] LABS: CREATININE, 24 HOUR URINE 1.89 g/24 h (0.50-2.15); PROTEIN, TOTAL, 24 HR UR 143 mg/24 h (<150); Protein/Creatinine Ratio 0.076 (< OR = 0.114); Protein/Creatinine Ratio 76 mg/g creat (< OR = 114)
[2021-06-05 16:11] LABS: ALBUMIN 100 %; ALPHA-1-GLOBULINS 0 %; ALPHA-2-GLOBULINS 0 %; BETA GLOBULINS 0 %; GAMMA GLOBULINS 0 %
== END 2021-06-02 11:34 | disposition home or self-care (01) ==
PROVIDERS: PCP Family Medicine; Visit Provider Internal Medicine Medical Oncology
DX: C90.00 Multiple myeloma not having achieved remission (principal)
CPT/HCPCS: 84156; 84166

== ENCOUNTER 2021-06-05 12:07 | Outpatient (CLI) | payer MEDICARE, OTHER, SELFPAY ==
--- NOTE | 2021-06-05 13:41 | ONC FU_ITS ---
Dorothy Mayen Progress Note Patient: Nick Sheldon Unit #: [id number]: 1950 Dicatated By: Dorothy Mayen N.P.Date of Visit:Jun 05, 2021 Onc MED Follow-up/Prog Note Chief Complaint: Myeloma. History of Present Illness: This is a 70 year-old man with IgA lambda myeloma. He had been seen by Dr. Prado in April 2019 to establish primary care. His initial evaluation included a comprehensive metabolic profile on 04/13/2019 which showed elevated BUN and creatinine at 19 and 1.43 mg/dL and elevation of the calculated serum globulin at 4.4 g/dL. His further laboratory studies from 04/24/2019 included CBC showing hemoglobin 11.2 g with hematocrit 34%. The red cell indices were normal. The white blood cell count was 5200 and the platelet count was 185,000. His basic metabolic profile showed borderline renal function with BUN 19 and creatinine 1.46 mg/dL. Calcium was normal at 9.7 mg/dL. Protein electrophoresis showed an IgA lambda monoclonal protein which quantitated at 2.6 g/dL. A second M band measured 0.2 g/dL. The total protein was 8.0 g/dL and the albumin measured 3.8 g/dL. The quantitative immunoglobulin levels included IgA 3025 mg/dL, IgG 299 mg/dL, and IgM 14 mg/dL. The free light chain assay showed elevated lambda light chain at 39.1 mg/L with normal kappa light chain at 5.1 mg/L and decreased kappa/lambda ratio at 0.13. Dr. Sanches had seen him initially on 05/26/2019. His further evaluation included a 24-hour urine protein electrophoresis which showed no monoclonal protein and a skeletal survey which showed no evidence for lytic bone lesions. He was then referred to [facility]. His bone marrow aspiration/biopsy on 06/05/2019 showed increased lambda restricted plasma cells estimated at 60% of the overall cellularity, consistent with plasma cell neoplasm. 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 Staging PET/CT on 06/13/2019 showed no evidence for active malignancy. He had further evaluation with MRI of the spine on 06/25/2019. The cervical spine showed some degenerative changes but no evidence for metastatic disease. There was mild heterogeneity throughout the vertebral bodies of the thoracic spine. There was no evidence for a destructive process, but involvement with myeloma was not excluded. There was also mild heterogeneity throughout the lumbar spine. Also noted was a mild digi-dnl-wphimp pattern and there was a hypointense lesion noted along the superior endplate of the L2 vertebral body. That lesion did show enhancement and there was additional very mild enhancement involving the sacrum. Overall, the findings were suspicious for involvement with myeloma. With those findings, along with the anemia and renal impairment, he was recommended to begin treatment with carfilzomib/Revlimid/dexamethasone. He began cycle 1 of carfilzomib/Revlimid/dexamethasone on 08/05/2019. Due to the impaired renal function, the Revlimid was administered at a reduced dosage of 15 mg daily on a 21/28-day schedule. His 1st cycle was complicated by development of skin eruption, which improved with stopping the Revlimid. However, he was able to restart the Revlimid with no recurrence of the eruption. He continued with cycle 2 on 09/02/2019. His repeat protein electrophoresis at that time showed a decrease in the M protein to 0.9 g/dL. During that cycle, the Revlimid was again put on hold at day 8 due to a decrease in the neutrophil count and the platelet count. He continued with cycle 3 on 09/30/2019 and with cycle 4 on 10/28/2019. On his repeat protein electrophoresis studies prior to starting cycle 4 his M protein was undetectable. His IgA level had decreased to 61 mg/dL. He then underwent high-dose melphalan/autologous stem cell transplant at [facility] on 12/24/2019. He had his day 100 follow-up visit at [facility] on 04/05/2020. His bone marrow aspiration/biopsy showed normocellular bone marrow with multilineage hematopoiesis and no increase in plasma cells. He was then recommended to begin maintenance therapy with lenalidomide 10 mg daily on a 21/28-day schedule together with ixazomib 4 mg on days 1, 8, and 15 of a 28-day schedule. He has otherwise been in excellent health. He has had no other ongoing medical illnesses. He is a non-smoker. INTERIM HISTORY: He began cycle 1 of maintenance with lenalidomide/ixazomib on 04/27/2020. He tolerated it well and he then continued cycles at 4-week intervals. In May he also began his vaccination schedule. He began his 4th cycle of maintenance on 07/25/2020. As of his follow-up visit on 08/22/2020 his treatment was put on hold due to moderately severe neutropenia, ANC 800. 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 He had no complications with that procedure. As of 09/26/2020 he was able to restart treatment with maintenance cycle 5 with the lenalidomide dosage reduced to 5 mg daily. He had a 1 year post transplant follow-up visit at [facility] on 12/23/2020. He was recommended to continue his maintenance therapy. In addition, it was recommended that he continue denosumab injections for bone health for a total of 2 years of treatment, scheduled to be completed in May 2021. He was also recommended to receive a single infusion of zoledronic acid at a 6-month interval, which would be October 2021. Patient presents today for follow-up. He states he feels great he has no weakness or fatigue. His appetite has been good. No fever, chills, night sweats. No shortness of breath, cough, chest pain. No GI or . No joint or muscle pain. No headaches or dizziness. He is currently on Ninlaro and Revlimid and tolerating both of those well. Review Of Symptoms: See above. Past Medical History: He has had ongoing medical illnesses. Past Surgical History: Covid #2 in 2020 COVID VAC in 2020 Colonoscopy in 2008 Allergies: No Known Allergies. Medications: Acyclovir 1 Tablet (of 400 mg) Oral t.i.d. LORazepam 0.5 - 1 Tablet (of 1 mg) Oral t.i.d. PRN Prochlorperazine Maleate 1 Tablet (of 10 mg) Oral q 4 hours PRN Revlimid 1 (5 mg) Capsule Oral daily for 21 days Family History: Mr. Sheldon's mother is alive. Mr. Sheldon's father at age 79: prostate cancer. Mr. Sheldon has 2 brothers: 2 alive. He has 1 sister who is . Father of prostate cancer at age 79. Mother is still living at age 94 and is in reasonably good health. A sister with complications of mental retardation. Two brothers are still living. One has valvular heart disease. Social History: Mr. Sheldon is and he is retired. Mr. Sheldon has never smoked. He has no history of drinking. Mr. Sheldon reports the following support systems: lives with spouse, significant other, family, or friends, lives in own house, supportive family/friends willing to assist with needs, and adequate transportation available for expected visits. His diet consists of regular meals. He indicates his activity level as: regular exercise. 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 He is a non-smoker. He does not drink alcohol. Physical Examination: Performed on Jun 05, 2021 12:58: Height - 74.00 in, Weight - 192.8 lbs (LOW), BSA - 2.14 sq.m, BMI - 24.75, Temperature - 96.8 F (LOW), Pulse - 64 /min, Respiration - 16 /min, BP - 152/78 mm(hg) (HIGH), O2 Sat - 97 %, Pain - 0, and Fatigue - 1. Performance Status: 0 - Fully active, able to carry on all predisease activities without restrictions. (ECOG) Constitutional Alert, cooperative, oriented. Mood and affect appropriate. Appears close to chronological age. Well nourished. Well developed. Head Normocephalic; no scars. Eyes Conjunctivae and sclerae are clear and without icterus. Pupils are reactive and equal. Hematologic/Lymphatic No petechiae or purpura. No tender or palpable lymph nodes in the cervical, supraclavicular, axillary or inguinal area. Respiratory Lungs are clear to auscultation without rhonchi or wheezing. Cardiovascular Regular rate and rhythm of heart without murmurs, gallops or rubs. Abdomen Non-tender, non-distended, no masses, ascites or hepatosplenomegaly. Good bowel sounds. No guarding or rebound tenderness. Musculoskeletal No tenderness or swelling, normal range of motion without obvious weakness. Psychiatric Alert and oriented times three. Coherent speech. Verbalizes understanding of our discussions today. Laboratory: Test performed on Jun 02, 2021 10:10 U Protein, 24hr 143 mg/24 h U Protein/Creat Ratio 0.076 U Creatinine, 24 hr 1.89 g/24 h Test performed on Jun 01, 2021 08:33 Sodium 140 mmol/L Potassium 4.0 mmol/L Chloride 105 mmol/L CO2 25 mmol/L Anion Gap 14.0 BUN 22 mg/dL Creatinine 1.2 mg/dL Cr Clearance (Est) 70.3300 mL/min Glucose 111 mg/dL Osmolality - Calculated 294 mOsm/kg Calcium 8.6 mg/dL Protein, Total 7.0 g/dL Albumin 4.3 g/dL Globulin 2.7 g/dL Bilirubin, Total 0.6 mg/dL ALT (SGPT) 15 U/L AST (SGOT) 24 U/L Alkaline Phosphatase 62 IU/L WBC 3.4 10 3/uL RBC 3.87 10 6/uL HGB 13.1 g/dL HCT 38.9 % MCV 100.5 fl MCH 33.9 pg MCHC 33.7 g/dL RDW 14.6 % Platelet Count 117 10 3/cmm MPV 11.2 fL Neutrophils 1.37 10 3/uL Lymphocytes 1.2 10 3/uL Monocytes 0.6 10 3/uL Eosinophils 0.1 10 3/uL Basophils 0.0 10 3/uL Neutrophil % 40.9 % Lymphocyte % 36.7 % Monocyte % 17.0 % Eosinophil % 4.2 % Basophils % 0.9 % NRBC % 0 % IgA 231 mg/dL Martorell Free Light Chains 23.8 mg/L Lambda Free Light Chains 16.1 mg/L Mart[place]ll/Lambda Free Ratio 1.48 Impression: 1. IgA lambda myeloma. He had mild anemia and mild renal impairment at initial diagnosis in May 2019. Bone marrow aspiration/biopsy showed involvement with lambda restricted plasma cells, estimated at 60% of the marrow cellularity, consistent with plasma cell neoplasm. There was no evidence for lytic bone disease on a skeletal survey or PET/CT, but MRI showed subtle changes in the thoracic and lumbar spine which were suspicious for involvement with myeloma. 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 2. On 06/02/2020 he suffered a traumatic fracture of the right clavicle and multiple rib fractures. 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 Plan: 1. Patient with IgA lambda myeloma. He had mild anemia and mild renal impairment at initial diagnosis in May 2019. Bone marrow aspiration/biopsy showed involvement with lambda restricted plasma cells, estimated at 60% of the marrow cellularity, consistent with plasma cell neoplasm. 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 There was no evidence for lytic bone disease on a skeletal survey or PET/CT, but MRI showed subtle changes in the thoracic and lumbar spine which were suspicious for involvement with myeloma. He began treatment with carfilzomib/Revlimid/dexamethasone on 08/05/2019. Due to the impaired renal function, the Revlimid was initiated at a reduced dosage of 15 mg daily on a 21/28-day schedule. During the first cycle his Revlimid was interrupted due to a skin eruption, but he was able to resume treatment with no recurrence of the eruption. During cycle 2 the Revlimid was put on hold at day 8 due to a decrease in the neutrophil count and the platelet count. The carfilzomib and dexamethasone were given on schedule and with no reductions. He then continued with cycle 3 on 09/30/2019 and with cycle 4 on 10/28/2019. He had a very good response to the treatment with his repeat protein electrophoresis at that point showing no detectable monoclonal protein and with his IgA level decreasing to 61 mg/dL compared to a pretreatment level of 3025 mg/dL. On 12/24/2019 he underwent high-dose melphalan/stem cell transplant at [facility]. He had an uneventful recovery following that procedure. His day 100 bone marrow aspiration/biopsy on 04/05/2020 showed normal cellular marrow with no increase in plasma cells. On 04/27/2020 he began cycle 1 of maintenance therapy with lenalidomide 10 mg daily on a 21/28-day schedule together with ixazomib 4 mg on days 1, 8, and 15 of a 28-day schedule. He tolerated that treatment well, and he then continued cycles at 4-week intervals. He began cycle 4 on 07/25/2020. As of 08/22/2020 his treatment was put on hold due to moderately severe neutropenia, ANC 800. He had uneventful recovery, but his maintenance therapy then remained on hold for an ORIF procedure for nonunion right clavicle fracture on 09/12/2020. As of 09/26/2020 he continued with his cycle 5 of maintenance therapy with the lenalidomide dosage reduced to 5 mg. He has since then continued treatment at 4-week intervals. He has continued to have mild to moderately severe neutropenia and intermittently has had mild thrombocytopenia. There has been no sign of disease recurrence. His labs remained stable his kappa lambda free ratio 1.48. He will continue his maintenance therapy with lenalidomide 5 mg daily for 21 days together with ixazomib 4 mg on days 1, 8, and 15 of a 28-day schedule. He will be scheduled for a follow-up visit in 12 weeks. 2. He has completed his 2-year regimen with Xgeva. His last dose was 05/08/2021. He will receive a single infusion of zoledronic acid at a 6-month interval which will be October 2021. Signed By: Dorothy Mayen N.P. <<Signature on File>>
== END 2021-06-05 12:08 | disposition home or self-care (01) ==
LOC: ONCMED 12:09
PROVIDERS: PCP Family Medicine; Visit Provider Nurse Practitioner Family
DX: C90.00 Multiple myeloma not having achieved remission (principal); D64.9 Anemia, unspecified; Z79.899 Other long term (current) drug therapy
CPT/HCPCS: 99214

== ENCOUNTER 2021-07-06 07:37 | Outpatient (CLI) | payer MEDICARE, OTHER, SELFPAY ==
[2021-07-06 08:26] LABS: Basophils # 0.1 10^3/uL (0.0-0.1); Basophils % 1.9 %; Eosinophils # 0.2 10^3/uL (0.0-0.8); Eosinophils % 5.1 %; Hematocrit 37.6 % (42.0-52.0); Hemoglobin 12.9 g/dL (11.7-16.6); Lymphocytes # 1.1 10^3/uL (0.8-4.8); Mean Corpuscular HGB Conc 34.3 g/dL (30.0-36.0); Mean Corpuscular Hemoglobin 33.8 pg (28.0-34.0); Mean Corpuscular Volume 98.4 fl (80-94); Mean Platelet Volume 10.5 fL (7.4-10.4); Monocytes # 0.7 10^3/uL (0.2-0.9); Monocytes % 20.9 %; Neutrophils # 1.15 10^3/uL (1.8-7.7); Neutrophils % 37.1 %; Nucleated Red Blood Cells % 0 %; Platelet Count 138 10^3/cmm (130-400); Red Blood Count 3.82 10^6/uL (4.1-5.3); Red Cell Distribution Width 14.2 % (12.1-15.1); White Blood Count 3.1 10^3/uL (4.0-10.0)
[2021-07-06 08:41] LABS: Alanine Aminotransferase 12 U/L (0-41); Albumin Level 3.8 g/dL (3.5-5.2); Alkaline Phosphatase 67 IU/L (40-130); Aspartate Amino Transferase 17 U/L (0-40); Blood Urea Nitrogen 17 mg/dL (8-23); Calcium 9.5 mg/dL (8.5-10.5); Carbon Dioxide 27 mmol/L (22-29); Chloride 104 mmol/L (98-107); Globulin 3.2 g/dL (1.3-4.6); Glucose 112 mg/dL (65-115); Osmolality Calculated 290 mOsm/kg (285-295); Sodium 139 mmol/L (136-145); Total Bilirubin 0.5 mg/dL (0.15-1.2)
== END 2021-07-06 07:38 | disposition home or self-care (01) ==
PROVIDERS: PCP Family Medicine; Visit Provider Internal Medicine Medical Oncology
DX: C90.00 Multiple myeloma not having achieved remission (principal)
CPT/HCPCS: 36415; 80053; 85025

== ENCOUNTER 2021-08-03 08:43 | Oncology outpatient (recurring) (ONCR) | payer MEDICARE, OTHER, SELFPAY | END 2021-08-29 23:59 | disposition home or self-care (01) | PROVIDERS: PCP Family Medicine; Visit Provider Internal Medicine Medical Oncology | DX: Z53.9 Procedure and treatment not carried out, unspecified reason (principal) ==

== ENCOUNTER 2021-08-31 08:03 | Oncology outpatient (recurring) (ONCR) | payer MEDICARE, OTHER, SELFPAY ==
[2021-08-31 08:45] LABS: Basophils # 0.1 10^3/uL (0.0-0.1); Basophils % 2.2 %; Eosinophils # 0.2 10^3/uL (0.0-0.8); Eosinophils % 5.6 %; Hematocrit 38.6 % (42.0-52.0); Lymphocytes # 1.3 10^3/uL (0.8-4.8); Lymphocytes % 34.1 %; Mean Corpuscular HGB Conc 33.7 g/dL (30.0-36.0); Mean Corpuscular Hemoglobin 33.9 pg (28.0-34.0); Mean Corpuscular Volume 100.8 fl (80-94); Mean Platelet Volume 10.1 fL (7.4-10.4); Monocytes # 0.8 10^3/uL (0.2-0.9); Monocytes % 20.4 %; Neutrophils # 1.39 10^3/uL (1.8-7.7); Neutrophils % 37.4 %; Nucleated Red Blood Cells % 0 %; Platelet Count 141 10^3/cmm (130-400); Red Blood Count 3.83 10^6/uL (4.1-5.3); Red Cell Distribution Width 14.8 % (12.1-15.1); White Blood Count 3.7 10^3/uL (4.0-10.0)
[2021-08-31 08:58] LABS: Alanine Aminotransferase 14 U/L (0-41); Albumin Level 4.1 g/dL (3.5-5.2); Alkaline Phosphatase 70 IU/L (40-130); Anion Gap 12.7 (5-19); Aspartate Amino Transferase 20 U/L (0-40); Blood Urea Nitrogen 17 mg/dL (8-23); Calcium 8.9 mg/dL (8.5-10.5); Carbon Dioxide 27 mmol/L (22-29); Chloride 103 mmol/L (98-107); Globulin 3.3 g/dL (1.3-4.6); Glucose 93 mg/dL (65-115); Osmolality Calculated 289 mOsm/kg (285-295); Potassium 3.7 mmol/L (3.5-5.1); Sodium 139 mmol/L (136-145); Total Bilirubin 0.5 mg/dL (0.15-1.2); Total Protein 7.4 g/dL (6.6-8.7)
== END 2021-09-28 23:59 | disposition home or self-care (01) ==
PROVIDERS: Nurse Practitioner Family; PCP Family Medicine; Visit Provider Internal Medicine Medical Oncology
DX: C90.01 Multiple myeloma in remission (principal)
CPT/HCPCS: 80053; 85025

== ENCOUNTER 2021-10-13 10:16 | Oncology outpatient (recurring) (ONCR) | payer MEDICARE, OTHER, SELFPAY ==
[2021-10-09 08:49] LABS: Eosinophils # 0.1 10^3/uL (0.0-0.8); Eosinophils % 2.9 %; Hematocrit 39.8 % (42.0-52.0); Hemoglobin 13.8 g/dL (11.7-16.6); Lymphocytes # 1.3 10^3/uL (0.8-4.8); Lymphocytes % 32.4 %; Mean Corpuscular HGB Conc 34.7 g/dL (30.0-36.0); Mean Corpuscular Hemoglobin 33.4 pg (28.0-34.0); Mean Corpuscular Volume 96.4 fl (80-94); Mean Platelet Volume 11.2 fL (7.4-10.4); Monocytes # 0.8 10^3/uL (0.2-0.9); Monocytes % 19.9 %; Neutrophils # 1.76 10^3/uL (1.8-7.7); Neutrophils % 43.1 %; Nucleated Red Blood Cells % 0 %; Platelet Count 107 10^3/cmm (130-400); Red Blood Count 4.13 10^6/uL (4.1-5.3); Red Cell Distribution Width 13.6 % (12.1-15.1); White Blood Count 4.1 10^3/uL (4.0-10.0)
[2021-10-09 09:12] LABS: Alanine Aminotransferase 14 U/L (0-41); Albumin Level 4.1 g/dL (3.5-5.2); Alkaline Phosphatase 74 IU/L (40-130); Anion Gap 13.5 (5-19); Aspartate Amino Transferase 19 U/L (0-40); Blood Urea Nitrogen 18 mg/dL (8-23); Calcium 8.9 mg/dL (8.5-10.5); Carbon Dioxide 26 mmol/L (22-29); Chloride 103 mmol/L (98-107); Globulin 3.4 g/dL (1.3-4.6); Glucose 93 mg/dL (65-115); Immunoglobulin IGA 293 mg/dL (70-400); Immunoglobulin IGG 1283 mg/dL (700-1600); Immunoglobulin IGM 45 mg/dL (40-230); Osmolality Calculated 288 mOsm/kg (285-295); Potassium 4.5 mmol/L (3.5-5.1); Sodium 138 mmol/L (136-145); Total Bilirubin 0.4 mg/dL (0.15-1.2); Total Protein 7.5 g/dL (6.6-8.7)
[2021-10-10 13:27] LABS: KAPPA LIGHT CHAIN, FREE, SERUM 29.6 mg/L (3.3-19.4); LAMBDA LIGHT CHAIN, FREE, SERU 22.7 mg/L (5.7-26.3)
[2021-10-11 12:27] LABS: CREATININE, 24 HOUR URINE 1.71 g/24 h (0.50-2.15); PROTEIN, TOTAL, 24 HR UR 145 mg/24 h (<150); Protein/Creatinine Ratio 0.085 (< OR = 0.114); Protein/Creatinine Ratio 85 mg/g creat (< OR = 114)
[2021-10-11 13:28] LABS: ALPHA 1 GLOBULIN 0.3 g/dL (0.2-0.3); ALPHA 2 GLOBULIN 0.7 g/dL (0.5-0.9); BETA 1 GLOBULIN 0.4 g/dL (0.4-0.6); BETA 2 GLOBULIN 0.4 g/dL (0.2-0.5); GAMMA GLOBULIN 1.3 g/dL (0.8-1.7)
[2021-10-12 10:12] LABS: ALBUMIN 100 %; ALPHA-1-GLOBULINS 0 %; ALPHA-2-GLOBULINS 0 %; BETA GLOBULINS 0 %; GAMMA GLOBULINS 0 %
== END 2021-10-29 23:59 | disposition home or self-care (01) ==
PROVIDERS: Nurse Practitioner Family; PCP Family Medicine; Visit Provider Internal Medicine Medical Oncology
DX: C90.01 Multiple myeloma in remission (principal); L98.9 Disorder of the skin and subcutaneous tissue, unspecified; D70.1 Agranulocytosis secondary to cancer chemotherapy; T45.1X5A Adverse effect of antineoplastic and immunosuppressive drugs, initial encounter
CPT/HCPCS: 36415; 80053; 82784; 83883; 84155; 84156; 84165; 84166; 85025; 99214

== ENCOUNTER 2021-11-01 08:04 | Oncology outpatient (recurring) (ONCR) | payer MEDICARE, OTHER, SELFPAY ==
[2021-11-01 08:24] VITALS: BP 123/72; PULSE 72; RESP 16; TEMP 36.6; O2SAT 96
[2021-11-01 09:15] LABS: Alanine Aminotransferase 13 U/L (0-41); Albumin Level 3.9 g/dL (3.5-5.2); Alkaline Phosphatase 66 IU/L (40-130); Anion Gap 13.9 (5-19); Aspartate Amino Transferase 20 U/L (0-40); Blood Urea Nitrogen 17 mg/dL (8-23); Calcium 9.1 mg/dL (8.5-10.5); Carbon Dioxide 27 mmol/L (22-29); Chloride 103 mmol/L (98-107); Globulin 3.2 g/dL (1.3-4.6); Glucose 109 mg/dL (65-115); Osmolality Calculated 292 mOsm/kg (285-295); Potassium 3.9 mmol/L (3.5-5.1); Sodium 140 mmol/L (136-145); Total Bilirubin 0.6 mg/dL (0.15-1.2); Total Protein 7.1 g/dL (6.6-8.7)
[2021-11-01] MEDS: zoledronic acid 4 MG in sodium chloride 0.9% (100 ml) 100 ML 420 MG IV (09:53)
== END 2021-11-29 23:59 | disposition home or self-care (01) ==
PROVIDERS: PCP Family Medicine; Visit Provider Internal Medicine Medical Oncology
DX: Z51.11 Encounter for antineoplastic chemotherapy (principal); C90.01 Multiple myeloma in remission; L98.9 Disorder of the skin and subcutaneous tissue, unspecified
CPT/HCPCS: 80053; 96365; J3489

== ENCOUNTER 2022-01-11 13:30 | Oncology outpatient (recurring) (ONCR) | payer MEDICARE, OTHER, SELFPAY ==
[2022-01-09 08:51] LABS: Basophils % 0.6 %; Eosinophils # 0.2 10^3/uL (0.0-0.8); Eosinophils % 5.5 %; Hematocrit 38.2 % (42.0-52.0); Hemoglobin 13.1 g/dL (11.7-16.6); Lymphocytes # 1.1 10^3/uL (0.8-4.8); Lymphocytes % 34.8 %; Mean Corpuscular HGB Conc 34.3 g/dL (30.0-36.0); Mean Corpuscular Hemoglobin 34.3 pg (28.0-34.0); Mean Platelet Volume 11.5 fL (7.4-10.4); Monocytes # 0.5 10^3/uL (0.2-0.9); Monocytes % 16.5 %; Neutrophils # 1.39 10^3/uL (1.8-7.7); Neutrophils % 42.3 %; Nucleated Red Blood Cells % 0 %; Platelet Count 75 10^3/cmm (130-400); Red Blood Count 3.82 10^6/uL (4.1-5.3); Red Cell Distribution Width 14.2 % (12.1-15.1); White Blood Count 3.3 10^3/uL (4.0-10.0)
[2022-01-09 09:13] LABS: Alanine Aminotransferase 13 U/L (0-41); Albumin Level 3.8 g/dL (3.5-5.2); Alkaline Phosphatase 63 U/L (40-130); Anion Gap 13.8 (5-19); Aspartate Amino Transferase 17 U/L (0-40); Blood Urea Nitrogen 16 mg/dL (8-23); Carbon Dioxide 26 mmol/L (22-29); Chloride 101 mmol/L (98-107); Globulin 3.1 g/dL (1.3-4.6); Glucose 113 mg/dL (65-115); Osmolality Calculated 286 mOsm/kg (285-295); Potassium 3.8 mmol/L (3.5-5.1); Sodium 137 mmol/L (136-145); Total Bilirubin 0.5 mg/dL (0.15-1.2); Total Protein 6.9 g/dL (6.6-8.7)
[2022-01-10 15:27] LABS: KAPPA LIGHT CHAIN, FREE, SERUM 28.2 mg/L (3.3-19.4); KAPPA/LAMBDA LIGHT CHAINS FREE 1.31 (0.26-1.65); LAMBDA LIGHT CHAIN, FREE, SERU 21.5 mg/L (5.7-26.3)
== END 2022-01-29 23:59 | disposition home or self-care (01) ==
PROVIDERS: Nurse Practitioner Family; PCP Family Medicine; Visit Provider Internal Medicine Medical Oncology
DX: Z53.9 Procedure and treatment not carried out, unspecified reason (principal); C90.01 Multiple myeloma in remission; D64.9 Anemia, unspecified; N28.89 Other specified disorders of kidney and ureter; D70.1 Agranulocytosis secondary to cancer chemotherapy; T45.1X5A Adverse effect of antineoplastic and immunosuppressive drugs, initial encounter; D69.6 Thrombocytopenia, unspecified; R19.7 Diarrhea, unspecified; R51.9 Headache, unspecified; Z79.899 Other long term (current) drug therapy; Z92.21 Personal history of antineoplastic chemotherapy; Z23 Encounter for immunization
CPT/HCPCS: 36415; 80053; 83883; 85025; 90471; 90662; 99214

== ENCOUNTER 2022-04-20 09:56 | Oncology outpatient (recurring) (ONCR) | payer MEDICARE, OTHER, SELFPAY ==
[2022-04-18 14:50] LABS: Eosinophils # 0.2 10^3/uL (0.0-0.8); Eosinophils % 4.3 %; Hematocrit 37.9 % (42.0-52.0); Hemoglobin 12.8 g/dL (11.7-16.6); Lymphocytes # 1.6 10^3/uL (0.8-4.8); Lymphocytes % 37.7 %; Mean Corpuscular HGB Conc 33.8 g/dL (30.0-36.0); Mean Corpuscular Hemoglobin 33.9 pg (28.0-34.0); Mean Corpuscular Volume 100.3 fl (80-94); Mean Platelet Volume 11.6 fL (7.4-10.4); Monocytes # 0.5 10^3/uL (0.2-0.9); Monocytes % 11.4 %; Neutrophils # 1.88 10^3/uL (1.8-7.7); Neutrophils % 45.4 %; Nucleated Red Blood Cells % 0 %; Platelet Count 113 10^3/cmm (130-400); Red Blood Count 3.78 10^6/uL (4.1-5.3); Red Cell Distribution Width 14.5 % (12.1-15.1); White Blood Count 4.1 10^3/uL (4.0-10.0)
[2022-04-18 15:10] LABS: Alanine Aminotransferase 14 U/L (0-41); Albumin Level 4.1 g/dL (3.5-5.2); Alkaline Phosphatase 77 U/L (40-130); Anion Gap 13.5 (5-19); Aspartate Amino Transferase 23 U/L (0-40); Blood Urea Nitrogen 18 mg/dL (8-23); Calcium 8.9 mg/dL (8.5-10.5); Carbon Dioxide 26 mmol/L (22-29); Chloride 103 mmol/L (98-107); Globulin 3.2 g/dL (1.3-4.6); Glucose 86 mg/dL (65-115); Immunoglobulin IGA 735 mg/dL (70-400); Immunoglobulin IGG 1089 mg/dL (700-1600); Immunoglobulin IGM 25 mg/dL (40-230); Osmolality Calculated 289 mOsm/kg (285-295); Potassium 3.5 mmol/L (3.5-5.1); Sodium 139 mmol/L (136-145); Total Bilirubin 0.4 mg/dL (0.15-1.2); Total Protein 7.3 g/dL (6.6-8.7)
[2022-04-19 10:36] LABS: PROTEIN, TOTAL 7.3 g/dL (6.1-8.1)
[2022-04-19 11:20] LABS: KAPPA LIGHT CHAIN, FREE, SERUM 22.4 mg/L (3.3-19.4); KAPPA/LAMBDA LIGHT CHAINS FREE 1.07 (0.26-1.65)
[2022-04-19 15:40] LABS: ABNORMAL PROTEIN BAND 1 0.6 g/dL (NONE DETECTED); ABNORMAL PROTEIN BAND 2 0.3 g/dL (NONE DETECTED); ALBUMIN 4.1 g/dL (3.8-4.8); ALPHA 1 GLOBULIN 0.3 g/dL (0.2-0.3); ALPHA 2 GLOBULIN 0.7 g/dL (0.5-0.9); BETA 1 GLOBULIN 0.4 g/dL (0.4-0.6); BETA 2 GLOBULIN 0.7 g/dL (0.2-0.5); GAMMA GLOBULIN 1.2 g/dL (0.8-1.7)
[2022-04-21 13:51] LABS: CREATININE, 24 HOUR URINE 1.88 g/24 h (0.50-2.15); PROTEIN, TOTAL, 24 HR UR 112 mg/24 h (<150); Protein/Creatinine Ratio 60 mg/g creat (<100)
[2022-04-23 17:09] LABS: ALBUMIN 100 %; ALPHA-1-GLOBULINS 0 %; ALPHA-2-GLOBULINS 0 %; BETA GLOBULINS 0 %; GAMMA GLOBULINS 0 %
== END 2022-05-01 23:59 | disposition home or self-care (01) ==
PROVIDERS: PCP Family Medicine; Visit Provider Internal Medicine Medical Oncology
DX: C90.01 Multiple myeloma in remission (principal)
CPT/HCPCS: 36415; 80053; 82784; 83883; 84155; 84156; 84165; 84166; 85025; 86334; 99214

== ENCOUNTER 2022-06-04 10:25 | Day surgery (SDC) | payer MEDICARE, OTHER, SELFPAY ==
[2022-05-31 11:20] VITALS: BMI 26.2
[2022-06-04 10:52] VITALS: BP 154/80; PULSE 75; RESP 18; TEMP 36.3; O2SAT 97
--- NOTE | 2022-06-04 10:54 | ANES.PREANE2 ---
Pre-Anesthetic Assessment Height/Weight: Height 1.83 m Weight 87.543 kg Temp Pulse Resp BP Pulse Ox O2 Del Method 97.4 F L 75 18 154/80 97 06/04/22 10:52 06/04/22 10:52 06/04/22 10:52 06/04/22 10:52 06/04/22 10:52 06/04/22 10:52 Preop Diagnosis: right clavicle nonunion Operation Date: 06/04/22 12:00 Proposed Procedures p Bone Marrow Biospy With Aspiration(Not Applicable) - Alie Engel MD Familial anesthetic complications: None Was Beta Navid taken within 24 hours: N/A Was Clonidine taken within 24 hours: N/A Last intake: Intake Last Liquid Date 06/03/22 Last Liquid Time 18:00 Last Solid Date 06/03/22 Last Solid Time 18:00 Social No alcohol and No tobacco Exam alert, oriented x 3, clear to auscultation bilaterally and regular rate & rhythm Airway Mallampati: Class II Dentition: full CV/HEM Multiple Myeloma Anesthetic Plan ASA status: 3 Anesthesia: MAC Risk of > 500 ml blood loss (7ml/kg in children): No Medications/Allergies Home Medications Medication Instructions Recorded Confirmed Last Taken Type acetaminophen 325 mg tablet 325 - 650 mg PO QID PRN Pain 06/02/20 05/31/22 Unknown History (Tylenol) acyclovir 400 mg tablet 400 mg PO DAILY 01/11/22 05/31/22 05/31/22 History aspirin 325 mg tablet 325 mg PO DAILY 04/18/22 05/31/22 05/31/22 History Revlimid 5 mg capsule 5 mg PO DAILY #21 caps 05/21/22 05/31/22 Unknown Rx (lenalidomide) ixazomib 4 mg capsule (Ninlaro) See Rx Instructions .Route 05/21/22 05/31/22 Unknown Rx .COMPLEX #3 caps Allergies Allergy/AdvReac Type Severity Reaction Status Date / Time No Known Allergies Allergy Verified 05/31/22 11:17 [facility] Anesthesia Medical History Multiple myeloma Surgical History S/P ORIF (open reduction internal fixation) fracture (08/2020) ORIF of right clavicle fracture Family History Grandfather Stroke Denies family history of Diabetes CAD (coronary artery disease) Clotting disorder Dementia Hyperlipidemia Psychiatric illness Chronic kidney disease (CKD) Suicide Anesthesia complication Bleeding disorder Lung disease Cancer Hypertension Social History Smoking and tobacco status: never smoked Alcohol intake: never Data Anesthesia Cardiac Studies: Echocardiogram Ultrasound 07/16/19
[2022-06-04] MEDS: sodium chloride 0.9% 1,000 ML 30 ML IV (11:03)
--- NOTE | 2022-06-04 12:00 | W.PM.OPSUD ---
Surgery/Procedure H&P Update DATE OF PROCEDURE: June 04, 2022 DATE H&P PERFORMED: 04/18/22 CHANGES TO PREVIOUS DOCUMENTATION: Patient seen and examined, since his last visit to the clinic, no obvious new symptoms or changes PREOP DIAGNOSIS: right clavicle nonunion PRIMARY INDICATION FOR PROCEDURE: Multiple myeloma PLANNED PROCEDURE: Operation Date: 06/04/22 12:00 Proposed Procedures p Bone Marrow Biospy With Aspiration(Not Applicable) - Alie Engel MD
--- NOTE | 2022-06-04 12:25 | W.PM.OPSUD ---
Surgery/Procedure H&P Update DATE OF PROCEDURE: June 04, 2022 DATE H&P PERFORMED: 04/18/22 PREOP DIAGNOSIS: right clavicle nonunion PRIMARY INDICATION FOR PROCEDURE: Patient has history of multiple myeloma, now with signs suggestive of disease progression for which bone marrow was recommended. Discussed with patient regarding bone marrow procedure, indication and related risks including but not limited to bleeding, nerve damage, pain, hematoma, bone damage, infection, patient expressed full understanding and gave the consent for the procedure PLANNED PROCEDURE: Operation Date: 06/04/22 12:00 Proposed Procedures p Bone Marrow Biospy With Aspiration(Not Applicable) - Alie Engel MD
[2022-06-04 12:27] VITALS: BP 125/71; PULSE 68; RESP 16; TEMP 36.1; O2SAT 99
[2022-06-04 12:38] VITALS: BP 140/80; PULSE 67; RESP 18; O2SAT 97
--- NOTE | 2022-06-04 13:03 | ANE.PACU2 ---
Inpatient post-anesthesia follow up: Airway intact: Yes Vital signs: Temperature 97 F Pulse Rate 67 Respiratory Rate 18 Blood Pressure 140/80 Pulse Oximetry 97 Oxygen Delivery Me thod Room Air Oxygen Flow Rate 3 Fraction of Inspir ed Oxygen Hydration adequate: Yes Nausea and vomiting: No Pain level: 1 Mental status: Baseline
[2022-06-04 14:16] LABS: Basophils % 1.2 %; Eosinophils # 0.1 10^3/uL (0.0-0.8); Hematocrit 38.9 % (42.0-52.0); Hemoglobin 12.8 g/dL (11.7-16.6); Lymphocytes # 1.4 10^3/uL (0.8-4.8); Lymphocytes % 41.8 %; Mean Corpuscular HGB Conc 32.9 g/dL (30.0-36.0); Mean Corpuscular Hemoglobin 32.7 pg (28.0-34.0); Mean Corpuscular Volume 99.2 fl (80-94); Mean Platelet Volume 10.9 fL (7.4-10.4); Monocytes # 0.5 10^3/uL (0.2-0.9); Monocytes % 13.9 %; Neutrophils # 1.33 10^3/uL (1.8-7.7); Neutrophils % 39.5 %; Nucleated Red Blood Cells % 0 %; Platelet Count 98 10^3/cmm (130-400); Red Blood Count 3.92 10^6/uL (4.1-5.3); Red Cell Distribution Width 14.6 % (12.1-15.1); White Blood Count 3.4 10^3/uL (4.0-10.0)
--- NOTE | 2022-06-05 09:17 | P.PCN_ITS ---
Bone Marrow Biopsy Bone Marrow Biopsy: I was consulted by [] office regarding bone marrow biopsy on Nick Sheldon []. Briefly, the patient is a [72] year old [male] with [history of myeloma]. In the Outpatient Services Department, with nursing staff and laboratory technologists in attendance, the procedure was discussed with the patient. Appropriate consent form had been signed. Appropriate alternatives, benefits and risks of procedure were discussed with the patient and he was pre- operatively assessed with a history and physical by myself and cleared for the biopsy procedure. The patient did request IV sedation and that was provided by the Anesthesia Department. All the risk involved with the procedure were discussed including but not limited to, pain, infection, bleeding, hematoma, nerve damage were mentioned and patient agreed and signed the consent. Under aseptic condition right posterior iliac area was cleaned and prepped, local anesthesia was given, about 15 cc of bone marrow aspirate and core biopsy was obtained, patient tolerated procedure well, hemostasis obtained, specimen was sent for routine histopathology, FISH for myeloma, flow cytometric cytogenetics as requested by Dr. Sanches, his oncologist. Postprocedure nurse instructions were given. Consent was obtained prior to the procedure Thank you for allowing me to participate in this patient's care and diagnosis. Coding Level of Care Code Acute Code for Chg Fwtamera
[2022-06-08 10:02] LABS: Leukemia Profile (BBPL) See Report; Lymphoma Profile (BBPL) See Report
[2022-06-13 08:38] LABS: Miscellaneous Test See Scanned Lab Rpt
[2022-06-17 19:01] LABS: Chromosome Analysis BBPL See Report
== END 2022-06-04 12:48 | disposition home or self-care (01) ==
PROVIDERS: PCP Family Medicine; Visit Provider Internal Medicine Hematology & Oncology
PROC: 07DT3ZX Extraction of Bone Marrow, Percutaneous Approach, Diagnostic (ICD-10-PCS; CPT 38222; principal; 2022-06-04 12:00)
DX: C90.00 Multiple myeloma not having achieved remission (principal); D69.6 Thrombocytopenia, unspecified; D61.818 Other pancytopenia; Z79.82 Long term (current) use of aspirin
CPT/HCPCS: 36415; 38222; 85025; 88184; 88185; 88237; 88264; 88291; 88305; 88311; J2704; J7030

== ENCOUNTER 2022-06-15 11:12 | Oncology outpatient (recurring) (ONCR) | payer MEDICARE, OTHER, SELFPAY | END 2022-06-29 23:59 | disposition home or self-care (01) | PROVIDERS: PCP Family Medicine; Visit Provider Internal Medicine Medical Oncology | DX: C90.01 Multiple myeloma in remission; R76.8 Other specified abnormal immunological findings in serum; Z79.52 Long term (current) use of systemic steroids; Z79.899 Other long term (current) drug therapy | CPT/HCPCS: 99214 ==

== ENCOUNTER 2022-07-13 06:02 | Outpatient (CLI) | payer MEDICARE, OTHER, SELFPAY ==
--- NOTE | 2022-07-13 06:15 | USCV_ITS ---
Nick Sheldon Age: 72 Gender: M : 1950 Exam Date: 07/13/2022 06:13 Ordering Phys: Romina Frankel NP Technologist: Exam Location: [facility] [place] Indication: high risk meds BP: 126 / 74 HR: 71 Rhythm: Sinus Technical Quality: Good MEASUREMENTS (Male / Female) Normal Values 2D ECHO LV Diastolic Diameter PLAX 3.8 cm 4.2 - 5.9 / 3.9 - 5.3 cm LV Systolic Diameter PLAX 2.2 cm IVS Diastolic Thickness 1.1 cm 0.6 - 1.0 / 0.6 - 0.9 cm IVS Systolic Thickness 1.2 cm LVPW Diastolic Thickness 0.9 cm 0.6 - 1.0 / 0.6 - 0.9 cm LVPW Systolic Thickness 1.7 cm LVOT Diameter 2.0 cm LV Ejection Fraction 2D Teich 74.7 % LV Ejection Fraction MOD 2C 58.7 % LV Ejection Fraction 2C AL 58.5 % LA Diameter 3.2 cm IVC Diameter 1.2 cm M-MODE Aortic Annulus Diameter 3.3 cm LA Ao Ratio MM 1.1 MV E Point Septal Separation 1.6 cm FINDINGS Left Ventricle Right Ventricle Right Atrium Left Atrium Mitral Valve Aortic Valve Tricuspid Valve Pulmonic Valve Pericardium Aorta IVC CONCLUSIONS LV systolic function is mildly reduced with EF of 45 to 50%. Mild global hypokinesis. Compared to prior echocardiogram from 2019, no significant changes are seen. Gurvinder Murphy MD (Electronically Signed) Final Date: 13 July 2022 10:02 S
== END 2022-07-13 06:03 | disposition home or self-care (01) ==
LOC: RAD 06:04
PROVIDERS: PCP Family Medicine; Visit Provider Nurse Practitioner
DX: Z79.899 Other long term (current) drug therapy (principal); I51.89 Other ill-defined heart diseases
CPT/HCPCS: 93308

== ENCOUNTER 2022-07-16 07:49 | Oncology outpatient (recurring) (ONCR) | payer MEDICARE, OTHER, SELFPAY ==
[2022-07-16] VITALS (8 sets, daily range): BP systolic 129–166; BP diastolic 69–80; PULSE 60–79; RESP 18; TEMP 36.1–36.8; O2SAT 92–97
[2022-07-16 08:42] LABS: White Blood Count 3.9 10^3/uL (4.0-10.0)
[2022-07-16 08:43] LABS: Basophils % 0.3 %; Eosinophils # 0.1 10^3/uL (0.0-0.8); Eosinophils % 2.1 %; Hematocrit 32.1 % (42.0-52.0); Hemoglobin 11.1 g/dL (11.7-16.6); Lymphocytes # 1.9 10^3/uL (0.8-4.8); Lymphocytes % 48.1 %; Mean Corpuscular HGB Conc 34.6 g/dL (30.0-36.0); Mean Corpuscular Hemoglobin 33.6 pg (28.0-34.0); Mean Corpuscular Volume 97.3 fl (80-94); Mean Platelet Volume 9.2 fL (7.4-10.4); Monocytes # 0.5 10^3/uL (0.2-0.9); Monocytes % 12.9 %; Neutrophils # 1.42 10^3/uL (1.8-7.7); Neutrophils % 36.3 %; Nucleated Red Blood Cells % 0 %; Platelet Count 61 10^3/cmm (130-400); Red Cell Distribution Width 14.4 % (12.1-15.1)
[2022-07-16 08:59] LABS: Alanine Aminotransferase 15 U/L (0-41); Albumin Level 3.9 g/dL (3.5-5.2); Alkaline Phosphatase 73 U/L (40-130); Aspartate Amino Transferase 27 U/L (0-40); Blood Urea Nitrogen 25 mg/dL (8-23); Calcium 8.8 mg/dL (8.5-10.5); Carbon Dioxide 22 mmol/L (22-29); Chloride 99 mmol/L (98-107); Globulin 4.2 g/dL (1.3-4.6); Glucose 98 mg/dL (65-115); Immunoglobulin IGG 730 mg/dL (700-1600); Osmolality Calculated 284 mOsm/kg (285-295); Sodium 135 mmol/L (136-145); Total Bilirubin 0.5 mg/dL (0.15-1.2); Total Protein 8.1 g/dL (6.6-8.7); Uric Acid 5.9 mg/dL (3.4-7.0)
[2022-07-16 09:17] LABS: Immunoglobulin IGA 2293 mg/dL (70-400)
[2022-07-16 09:18] LABS: Immunoglobulin IGM 16 mg/dL (40-230)
[2022-07-16 09:20] LABS: Hepatitis A Antibody IgM Non-Reactive (Nonreactive); Hepatitis B Core AB, Total Non-Reactive (Nonreactive); Hepatitis B Surface AB 5.1 (11.5-1000); Hepatitis B Surface Antigen Non-Reactive (Nonreactive); Hepatitis C Virus Antibody Non-Reactive (Nonreactive)
[2022-07-16 09:22] LABS: Anion Gap 17.6 (5-19); Potassium 3.6 mmol/L (3.5-5.1)
[2022-07-16] MEDS: sodium chloride 0.9% 500 ML IV (10:44)
[2022-07-16] MEDS: diphenhydrAMINE 50 mg/mL SDV 1mL 25 MG IVP (11:18)
[2022-07-16] MEDS: acetaminophen 325 mg Tablet 650 MG PO (11:19)
[2022-07-16] MEDS: ondansetron 2 mg/ML SDV 2 mL 8 MG IVP (11:19)
[2022-07-16] MEDS: famotidine 20 mg/2 mL INJ IVP (11:19)
[2022-07-16] MEDS: dexamethasone 20 MG in sodium chloride 0.9% 50 ML 188 MG IV (11:48)
[2022-07-16] MEDS: sodium chloride 0.9% 250 ML 75 ML IV (11:48)
[2022-07-17 09:10] LABS: PROTEIN, TOTAL 7.5 g/dL (6.1-8.1)
[2022-07-17 11:10] LABS: ABNORMAL PROTEIN BAND 1 1.4 g/dL (NONE DETECTED); ABNORMAL PROTEIN BAND 2 0.4 g/dL (NONE DETECTED); ALBUMIN 3.4 g/dL (3.8-4.8); ALPHA 1 GLOBULIN 0.3 g/dL (0.2-0.3); ALPHA 2 GLOBULIN 0.7 g/dL (0.5-0.9); BETA 1 GLOBULIN 0.4 g/dL (0.4-0.6); BETA 2 GLOBULIN 1.5 g/dL (0.2-0.5); GAMMA GLOBULIN 1.1 g/dL (0.8-1.7); KAPPA LIGHT CHAIN, FREE, SERUM 13.3 mg/L (3.3-19.4); KAPPA/LAMBDA LIGHT CHAINS FREE 0.34 (0.26-1.65); LAMBDA LIGHT CHAIN, FREE, SERU 38.9 mg/L (5.7-26.3)
== END 2022-07-16 23:59 | disposition home or self-care (01) ==
PROVIDERS: Nurse Practitioner; PCP Family Medicine; Visit Provider Internal Medicine Medical Oncology
DX: Z51.11 Encounter for antineoplastic chemotherapy; C90.02 Multiple myeloma in relapse; R76.8 Other specified abnormal immunological findings in serum; Z79.52 Long term (current) use of systemic steroids; Z79.899 Other long term (current) drug therapy; D64.9 Anemia, unspecified; N28.89 Other specified disorders of kidney and ureter
CPT/HCPCS: 80053; 82784; 83883; 84155; 84165; 84550; 85025; 86705; 86706; 86709; 86803; 86850; 86900; 87340; 96375; 96413; 96415; 96417; 99214; J1100; J1200; J2405; J3490; J7040; J7050; J9047; J9227

== ENCOUNTER 2022-07-23 08:00 | Oncology outpatient (recurring) (ONCR) | payer MEDICARE, OTHER, SELFPAY ==
[2022-07-23 08:13] LABS: Eosinophils # 0.1 10^3/uL (0.0-0.8); Eosinophils % 2.8 %; Hematocrit 32.1 % (42.0-52.0); Lymphocytes % 36.3 %; Mean Corpuscular HGB Conc 34.3 g/dL (30.0-36.0); Mean Corpuscular Hemoglobin 33.6 pg (28.0-34.0); Mean Corpuscular Volume 98.2 fl (80-94); Mean Platelet Volume 10.6 fL (7.4-10.4); Monocytes # 0.4 10^3/uL (0.2-0.9); Monocytes % 13.2 %; Neutrophils # 1.33 10^3/uL (1.8-7.7); Neutrophils % 47.3 %; Nucleated Red Blood Cells % 0 %; Platelet Count 38 10^3/cmm (130-400); Red Blood Count 3.27 10^6/uL (4.1-5.3); Red Cell Distribution Width 14.9 % (12.1-15.1); White Blood Count 2.8 10^3/uL (4.0-10.0)
[2022-07-23 08:45] LABS: Alanine Aminotransferase 12 U/L (0-41); Albumin Level 3.6 g/dL (3.5-5.2); Alkaline Phosphatase 70 U/L (40-130); Anion Gap 14.9 (5-19); Aspartate Amino Transferase 18 U/L (0-40); Blood Urea Nitrogen 19 mg/dL (8-23); Calcium 8.9 mg/dL (8.5-10.5); Carbon Dioxide 22 mmol/L (22-29); Chloride 106 mmol/L (98-107); Globulin 3.5 g/dL (1.3-4.6); Glucose 103 mg/dL (65-115); Osmolality Calculated 291 mOsm/kg (285-295); Potassium 3.9 mmol/L (3.5-5.1); Sodium 139 mmol/L (136-145); Total Bilirubin 0.3 mg/dL (0.15-1.2); Total Protein 7.1 g/dL (6.6-8.7)
[2022-07-23] MEDS: sodium chloride 0.9% 250 ML 75 ML IV (09:00)
[2022-07-23] MEDS: acetaminophen 325 mg Tablet 650 MG PO (09:03)
[2022-07-23] MEDS: famotidine 20 mg/2 mL INJ IVP (09:04)
[2022-07-23] MEDS: ondansetron 2 mg/ML SDV 2 mL 8 MG IVP (09:04)
[2022-07-23] MEDS: diphenhydrAMINE 50 mg/mL SDV 1mL 25 MG IVP (09:04)
[2022-07-23] MEDS: dexamethasone 20 MG in sodium chloride 0.9% 50 ML 187 MG IV (09:24)
[2022-07-23 09:50] VITALS: BP 178/81; PULSE 65; TEMP 36.5; O2SAT 97
[2022-07-23 10:20] VITALS: BP 163/91; PULSE 60; RESP 16; TEMP 36.2; O2SAT 97
[2022-07-23 10:50] VITALS: BP 147/77; PULSE 56; TEMP 36.4; O2SAT 94
[2022-07-23 11:20] VITALS: BP 175/80; PULSE 66; TEMP 36.3; O2SAT 99
[2022-07-23] MEDS: DEXTROSE 5% IV (12:15)
[2022-07-23] MEDS: CARFILZOMIB IV (12:15)
[2022-07-23 13:00] VITALS: BP 152/72; PULSE 68; TEMP 36.3; O2SAT 96
== END 2022-07-23 23:59 | disposition home or self-care (01) ==
PROVIDERS: Nurse Practitioner Family; PCP Family Medicine; Visit Provider Internal Medicine Medical Oncology
DX: Z51.12 Encounter for antineoplastic immunotherapy; C90.02 Multiple myeloma in relapse; D64.81 Anemia due to antineoplastic chemotherapy; D70.1 Agranulocytosis secondary to cancer chemotherapy; T45.1X5A Adverse effect of antineoplastic and immunosuppressive drugs, initial encounter; R74.8 Abnormal levels of other serum enzymes; Z79.899 Other long term (current) drug therapy; Z79.52 Long term (current) use of systemic steroids; Z53.9 Procedure and treatment not carried out, unspecified reason; C90.01 Multiple myeloma in remission; L98.9 Disorder of the skin and subcutaneous tissue, unspecified
CPT/HCPCS: 80053; 85025; 96361; 96375; 96413; 96415; 96417; 99214; J1100; J1200; J2405; J3490; J7050; J9047; J9227

== ENCOUNTER 2022-07-30 08:06 | Oncology outpatient (recurring) (ONCR) | payer MEDICARE, OTHER, SELFPAY ==
[2022-07-30 08:34] VITALS: BP 171/84; PULSE 75; TEMP 36.9; O2SAT 99
[2022-07-30 08:38] LABS: Eosinophils # 0.1 10^3/uL (0.0-0.8); Eosinophils % 2.5 %; Hematocrit 33.9 % (42.0-52.0); Hemoglobin 11.8 g/dL (11.7-16.6); Lymphocytes % 34.4 %; Mean Corpuscular HGB Conc 34.8 g/dL (30.0-36.0); Mean Corpuscular Hemoglobin 33.7 pg (28.0-34.0); Mean Corpuscular Volume 96.9 fl (80-94); Mean Platelet Volume 12.6 fL (7.4-10.4); Monocytes # 0.5 10^3/uL (0.2-0.9); Monocytes % 16.8 %; Neutrophils # 1.32 10^3/uL (1.8-7.7); Neutrophils % 46.3 %; Nucleated Red Blood Cells % 0 %; Platelet Count 41 10^3/cmm (130-400); Red Cell Distribution Width 15.5 % (12.1-15.1); White Blood Count 2.9 10^3/uL (4.0-10.0)
[2022-07-30 08:53] LABS: Alanine Aminotransferase 14 U/L (0-41); Albumin Level 3.8 g/dL (3.5-5.2); Alkaline Phosphatase 74 U/L (40-130); Blood Urea Nitrogen 19 mg/dL (8-23); Calcium 9.3 mg/dL (8.5-10.5); Carbon Dioxide 22 mmol/L (22-29); Chloride 101 mmol/L (98-107); Globulin 3.4 g/dL (1.3-4.6); Glucose 85 mg/dL (65-115); Osmolality Calculated 282 mOsm/kg (285-295); Sodium 135 mmol/L (136-145); Total Bilirubin 0.5 mg/dL (0.15-1.2); Total Protein 7.2 g/dL (6.6-8.7)
[2022-07-30 08:59] LABS: Anion Gap 16.5 (5-19); Aspartate Amino Transferase 20 U/L (0-40); Potassium 4.5 mmol/L (3.5-5.1)
[2022-07-30] MEDS: sodium chloride 0.9% 500 ML 100 ML IV (10:19)
[2022-07-30] MEDS: diphenhydrAMINE 50 mg/mL SDV 1mL 25 MG IVP (10:20)
[2022-07-30] MEDS: famotidine 20 mg/2 mL INJ IVP (10:20)
[2022-07-30] MEDS: ondansetron 2 mg/ML SDV 2 mL 8 MG IVP (10:20)
[2022-07-30] MEDS: acetaminophen 325 mg Tablet 650 MG PO (10:21)
[2022-07-30] MEDS: dexamethasone 20 MG in sodium chloride 0.9% 50 ML 187 MG IV (10:28)
[2022-07-30 11:30] VITALS: BP 151/77; PULSE 63; TEMP 36.5; O2SAT 97
[2022-07-30 12:00] VITALS: BP 157/80; PULSE 62; TEMP 36.3; O2SAT 98
[2022-07-30 12:30] VITALS: BP 151/81; PULSE 61; TEMP 36.3; O2SAT 94
[2022-07-30] MEDS: dextrose 5% 250 ML 100 ML IV (13:19)
[2022-07-30] MEDS: DEXTROSE 5% IV (13:20)
[2022-07-30] MEDS: CARFILZOMIB IV (13:20)
[2022-07-30 14:50] VITALS: BP 138/71; PULSE 69; TEMP 36.4; O2SAT 97
== END 2022-07-30 23:59 | disposition home or self-care (01) ==
PROVIDERS: PCP Family Medicine; Visit Provider Internal Medicine Medical Oncology
DX: Z51.11 Encounter for antineoplastic chemotherapy; R74.8 Abnormal levels of other serum enzymes; C90.02 Multiple myeloma in relapse; D64.9 Anemia, unspecified; D72.819 Decreased white blood cell count, unspecified; D69.1 Qualitative platelet defects; Z79.52 Long term (current) use of systemic steroids; Z79.899 Other long term (current) drug therapy
CPT/HCPCS: 80053; 85025; 96367; 96375; 96413; 96415; 96417; 99214; J1100; J1200; J2405; J3490; J7040; J7050; J7060; J9047; J9227

== ENCOUNTER → 2022-08-07 14:19 | Outpatient (BNVA) | payer MEDICARE, OTHER, SELFPAY | PROVIDERS: PCP Family Medicine; Visit Provider Nurse Practitioner Family | DX: L81.4 Other melanin hyperpigmentation (principal); D22.5 Melanocytic nevi of trunk; Z71.89 Other specified counseling; L85.3 Xerosis cutis; L57.8 Other skin changes due to chronic exposure to nonionizing radiation; L57.0 Actinic keratosis; L82.1 Other seborrheic keratosis; L82.0 Inflamed seborrheic keratosis; C90.01 Multiple myeloma in remission | CPT/HCPCS: 17004; 17110; 99214 ==

== ENCOUNTER → 2022-08-13 08:10 | Outpatient (BNVA) | payer MEDICARE, OTHER, SELFPAY | PROVIDERS: PCP Family Medicine; Visit Provider Internal Medicine Medical Oncology | DX: C90.02 Multiple myeloma in relapse (principal) | CPT/HCPCS: 99214 ==

== ENCOUNTER 2022-08-14 08:30 | Oncology outpatient (recurring) (ONCR) | payer MEDICARE, OTHER, SELFPAY ==
[2022-08-06 08:21] LABS: Basophils % 0.4 %; Eosinophils # 0.1 10^3/uL (0.0-0.8); Eosinophils % 3.1 %; Hematocrit 33.6 % (42.0-52.0); Hemoglobin 11.3 g/dL (11.7-16.6); Lymphocytes # 0.7 10^3/uL (0.8-4.8); Lymphocytes % 27.7 %; Mean Corpuscular HGB Conc 33.6 g/dL (30.0-36.0); Mean Corpuscular Hemoglobin 33.2 pg (28.0-34.0); Mean Corpuscular Volume 98.8 fl (80-94); Mean Platelet Volume 12.9 fL (7.4-10.4); Monocytes # 0.6 10^3/uL (0.2-0.9); Monocytes % 22.3 %; Neutrophils # 1.18 10^3/uL (1.8-7.7); Neutrophils % 46.1 %; Nucleated Red Blood Cells % 0 %; Platelet Count 49 10^3/cmm (130-400); Red Cell Distribution Width 16.1 % (12.1-15.1); White Blood Count 2.6 10^3/uL (4.0-10.0)
[2022-08-06 08:46] LABS: Alanine Aminotransferase 12 U/L (0-41); Albumin Level 3.7 g/dL (3.5-5.2); Alkaline Phosphatase 75 U/L (40-130); Anion Gap 13.8 (5-19); Aspartate Amino Transferase 16 U/L (0-40); Blood Urea Nitrogen 28 mg/dL (8-23); Carbon Dioxide 25 mmol/L (22-29); Chloride 101 mmol/L (98-107); Globulin 2.7 g/dL (1.3-4.6); Glucose 103 mg/dL (65-115); Osmolality Calculated 288 mOsm/kg (285-295); Potassium 3.8 mmol/L (3.5-5.1); Sodium 136 mmol/L (136-145); Total Bilirubin 0.5 mg/dL (0.15-1.2); Total Protein 6.4 g/dL (6.6-8.7)
[2022-08-06] MEDS: ondansetron 2 mg/ML SDV 2 mL 8 MG IVP (09:43)
[2022-08-06] MEDS: sodium chloride 0.9% 250 ML 100 ML IV (09:43)
[2022-08-06] MEDS: famotidine 20 mg/2 mL INJ IVP (09:43)
[2022-08-06] MEDS: diphenhydrAMINE 50 mg/mL SDV 1mL 25 MG IVP (09:43)
[2022-08-06] MEDS: acetaminophen 325 mg Tablet 650 MG PO (09:51)
[2022-08-06] MEDS: dexamethasone 20 MG in sodium chloride 0.9% 50 ML 187 MG IV (09:56)
[2022-08-06 10:25] VITALS: PULSE 54; TEMP 36.1; O2SAT 99
[2022-08-06 10:55] VITALS: BP 156/80; PULSE 56; RESP 18; TEMP 35.9; O2SAT 99
[2022-08-06 11:25] VITALS: BP 159/82; PULSE 55; TEMP 35.8; O2SAT 99
[2022-08-06 11:55] VITALS: BP 162/78; PULSE 57; TEMP 35.8; O2SAT 98
[2022-08-06 12:54] VITALS: BP 156/73; PULSE 66; TEMP 35.9; O2SAT 96
[2022-08-13 08:05] VITALS: BP 142/85; PULSE 76; TEMP 37.2; O2SAT 97
[2022-08-13 08:09] LABS: Basophils % 0.6 %; Eosinophils # 0.1 10^3/uL (0.0-0.8); Eosinophils % 2.1 %; Hematocrit 33.6 % (42.0-52.0); Hemoglobin 11.5 g/dL (11.7-16.6); Lymphocytes # 0.9 10^3/uL (0.8-4.8); Lymphocytes % 28.1 %; Mean Corpuscular HGB Conc 34.2 g/dL (30.0-36.0); Mean Corpuscular Hemoglobin 33.7 pg (28.0-34.0); Mean Corpuscular Volume 98.5 fl (80-94); Mean Platelet Volume 11.6 fL (7.4-10.4); Monocytes # 0.6 10^3/uL (0.2-0.9); Monocytes % 18.8 %; Neutrophils # 1.69 10^3/uL (1.8-7.7); Neutrophils % 50.4 %; Nucleated Red Blood Cells % 0 %; Platelet Count 110 10^3/cmm (130-400); Red Blood Count 3.41 10^6/uL (4.1-5.3); Red Cell Distribution Width 16.5 % (12.1-15.1); White Blood Count 3.4 10^3/uL (4.0-10.0)
[2022-08-13 08:45] LABS: Alanine Aminotransferase 14 U/L (0-41); Albumin Level 3.7 g/dL (3.5-5.2); Alkaline Phosphatase 86 U/L (40-130); Anion Gap 14.9 (5-19); Aspartate Amino Transferase 19 U/L (0-40); Blood Urea Nitrogen 14 mg/dL (8-23); Calcium 9.3 mg/dL (8.5-10.5); Carbon Dioxide 23 mmol/L (22-29); Chloride 100 mmol/L (98-107); Globulin 2.8 g/dL (1.3-4.6); Glucose 103 mg/dL (65-115); Immunoglobulin IGA 263 mg/dL (70-400); Immunoglobulin IGG 654 mg/dL (700-1600); Osmolality Calculated 279 mOsm/kg (285-295); Potassium 3.9 mmol/L (3.5-5.1); Sodium 134 mmol/L (136-145); Total Bilirubin 0.4 mg/dL (0.15-1.2); Total Protein 6.5 g/dL (6.6-8.7)
[2022-08-13 09:02] LABS: Immunoglobulin IGM 15 mg/dL (40-230)
[2022-08-13] MEDS: sodium chloride 0.9% 500 ML 999 ML IV (09:57)
[2022-08-13] MEDS: acetaminophen 325 mg Tablet 650 MG PO (09:57)
[2022-08-13] MEDS: diphenhydrAMINE 50 mg/mL SDV 1mL 25 MG IVP (09:58)
[2022-08-13] MEDS: ondansetron 2 mg/ML SDV 2 mL 8 MG IVP (09:58)
[2022-08-13] MEDS: famotidine 20 mg/2 mL INJ IVP (09:58)
[2022-08-13] MEDS: dexamethasone 20 MG in sodium chloride 0.9% 50 ML 188 MG IV (10:57)
[2022-08-13 11:50] VITALS: BP 192/73; PULSE 58; TEMP 36.1; O2SAT 99
[2022-08-13 12:20] VITALS: BP 153/76; PULSE 62; TEMP 36.2; O2SAT 99
[2022-08-13 12:50] VITALS: BP 149/66; PULSE 63; TEMP 36.3; O2SAT 99
[2022-08-13 15:39] VITALS: BP 135/73; PULSE 66; O2SAT 98
[2022-08-14] MEDS: dextrose 5% 250 ML 100 ML IV (08:20)
[2022-08-14] MEDS: acetaminophen 325 mg Tablet 650 MG PO (08:21)
[2022-08-14] MEDS: diphenhydrAMINE 50 mg/mL SDV 1mL 25 MG IVP (08:23)
[2022-08-14] MEDS: ondansetron 2 mg/ML SDV 2 mL 8 MG IVP (08:23)
[2022-08-14] MEDS: famotidine 20 mg/2 mL INJ IVP (08:23)
[2022-08-14] MEDS: dexamethasone 20 MG in sodium chloride 0.9% 50 ML 188 MG IV (08:38)
[2022-08-14 10:04] VITALS: BP 126/64; PULSE 72; TEMP 36.7; O2SAT 95
[2022-08-14 13:55] LABS: PROTEIN, TOTAL 6.1 g/dL (6.1-8.1)
[2022-08-14 14:30] LABS: KAPPA LIGHT CHAIN, FREE, SERUM 5.7 mg/L (3.3-19.4); KAPPA/LAMBDA LIGHT CHAINS FREE 2.04 (0.26-1.65); LAMBDA LIGHT CHAIN, FREE, SERU 2.8 mg/L (5.7-26.3)
[2022-08-15 16:39] LABS: ABNORMAL PROTEIN BAND 1 0.4 g/dL (NONE DETECTED); ALBUMIN 3.6 g/dL (3.8-4.8); ALPHA 1 GLOBULIN 0.4 g/dL (0.2-0.3); ALPHA 2 GLOBULIN 0.7 g/dL (0.5-0.9); BETA 1 GLOBULIN 0.4 g/dL (0.4-0.6); BETA 2 GLOBULIN 0.5 g/dL (0.2-0.5); GAMMA GLOBULIN 0.6 g/dL (0.8-1.7)
== END 2022-08-14 23:59 | disposition home or self-care (01) ==
PROVIDERS: PCP Family Medicine; Visit Provider Internal Medicine Medical Oncology
DX: Z51.11 Encounter for antineoplastic chemotherapy; C90.02 Multiple myeloma in relapse; Z79.52 Long term (current) use of systemic steroids; Z79.899 Other long term (current) drug therapy
CPT/HCPCS: 80053; 82784; 83883; 84155; 84165; 85025; 96366; 96367; 96375; 96413; 96415; 96417; J1100; J1200; J2405; J3490; J7040; J7050; J7060; J9047; J9227

== ENCOUNTER → 2022-08-16 14:42 | Outpatient (BNVA) | payer MEDICARE, OTHER, SELFPAY | PROVIDERS: PCP Family Medicine; Visit Provider Surgery | DX: C90.00 Multiple myeloma not having achieved remission (principal) | CPT/HCPCS: 99203 ==

== ENCOUNTER 2022-08-17 08:34 | Day surgery (SDC) | payer MEDICARE, OTHER, SELFPAY ==
[2022-08-17 09:06] VITALS: BP 165/74; PULSE 98; RESP 18; TEMP 36.1; O2SAT 96; BMI 25.0
--- NOTE | 2022-08-17 09:09 | XR_ITS ---
WS: [id number] Portable AP upright chest, 08/17/2022 Clinical Data: Postop Mediport placement Comparison: None. Findings: No nodules, masses or effusions are seen. The heart is normal. The pulmonary vascularity is not increased. No pneumonia or pneumothorax is seen. The infusion port overlies the left axilla and the tip ends in the superior vena cava. The aortic arch and descending thoracic aorta show tortuosity . There is a plate and screw repair of a midshaft fracture of the right clavicle. There are healed fr actures of the right fifth and sixth ribs. XR/XR chest 1V portable [id number] Impression: 1. Satisfactory infusion port placement. 2. Atherosclerosis.
[2022-08-17] MEDS: sodium chloride 0.9% 1,000 ML 30 ML IV (09:19)
--- NOTE | 2022-08-17 10:25 | ANES.PREANE2 ---
Pre-Anesthetic Assessment Height/Weight: Height 1.85 m Weight 86.183 kg Temp Pulse Resp BP Pulse Ox O2 Del Method 97 F L 98 18 165/74 96 Room Air 08/17/22 09:06 08/17/22 09:06 08/17/22 09:06 08/17/22 09:06 08/17/22 09:06 08/17/22 09:06 Operation Date: 08/17/22 10:30 Proposed Procedures p Portacath Placement(Not Applicable) - Shen Sherwood DO Familial anesthetic complications: None Was Beta Navid taken within 24 hours: N/A Was Clonidine taken within 24 hours: N/A Last intake: Intake Last Liquid Date 08/16/22 Last Liquid Time 17:00 Last Solid Date 08/16/22 Last Solid Time 17:00 Social No alcohol and No tobacco Exam alert, oriented x 3, clear to auscultation bilaterally and regular rate & rhythm Airway Mallampati: Class II Dentition: full Pulmonary hx flail chest CV/HEM Anemia CONCLUSIONS ?1-Normal left ventricular cavity size. Mildly reduced left ?ventricular systolic function. Global left ventricular ?hypokinesis.? Left ventricular ejection fraction is estimated at ?50 %. Grade I/IV diastolic dysfunction (abnormal relaxation ?filling pattern), normal to mildly elevated filling pressures. ?2-No significant valve abnormalities. ?3-There is no pericardial effusion. ?4-Right atrial pressure is around 5 mm of mercury. ?5-There are no prior echocardiogram studies to compare 07/22 echo CONCLUSIONS ?LV systolic function is mildly reduced with EF of 45 to 50%.? ?Mild global hypokinesis. ?Compared to prior echocardiogram from 2019, no significant ?changes are seen. [facility] multiple myeloma Anesthetic Plan ASA status: 3 Anesthesia: MAC Risk of > 500 ml blood loss (7ml/kg in children): No Medications/Allergies Home Medications Medication Instructions Recorded Confirmed Last Taken Type acetaminophen 325 mg tablet 325 - 650 mg PO QID PRN Pain 06/02/20 08/17/22 08/10/22 History (Tylenol) acyclovir 400 mg tablet 400 mg PO TID #90 tabs 07/16/22 08/17/22 08/16/22 Rx Allergies Allergy/AdvReac Type Severity Reaction Status Date / Time No Known Allergies Allergy Verified 08/16/22 15:22 Current Medications Generic Name Dose Route Start Last Admin Trade Name Freq PRN Reason Stop Dose Admin Sodium Chloride 1,000 mls @ 30 mls/hr 08/17/22 09:00 08/17/22 09:19 Sodium Chloride 0.9% IV 08/18/22 08:59 30 mls/hr .Q24H [id number] Administration PFSH Anesthesia Medical History (Updated 08/16/22 @ 15:42 by Shen Sherwood DO) Multiple myeloma Surgical History Hx of colonoscopy S/P ORIF (open reduction internal fixation) fracture (08/2020) ORIF of right clavicle fracture Family History Grandfather Stroke Denies family history of Diabetes CAD (coronary artery disease) Clotting disorder Dementia Hyperlipidemia Psychiatric illness Chronic kidney disease (CKD) Suicide Anesthesia complication Bleeding disorder Lung disease Cancer Hypertension Social History Smoking and tobacco status: never smoked Alcohol intake: never Data Anesthesia Cardiac Studies: Echocardiogram Limited Views 07/13/22 Echocardiogram Ultrasound 07/16/19
--- NOTE | 2022-08-17 10:52 | W.PM.OPSUD ---
Surgery/Procedure H&P Update DATE OF PROCEDURE: August 17, 2022 DATE H&P PERFORMED: 08/16/22 H&P UPDATE INFORMATION: I have reviewed H&P completed within last 30 days, I have examined patient prior to procedure and No changes to prior documentation PLANNED PROCEDURE: Operation Date: 08/17/22 10:30 Proposed Procedures p Portacath Placement(Not Applicable) - Shen Sherwood DO
[2022-08-17] MEDS: ceFAZolin 2,000 MG in sodium chloride 0.9% (plus) 50 ML 100 MG IV (11:07)
[2022-08-17] MEDS: lidocaine-epi 2% 20 mL INJ INJECTION (11:19)
[2022-08-17] MEDS: heparin, porcine 1,000 unit/mL INJ 10 mL 10000 UNIT XX (11:33)
[2022-08-17 11:42] VITALS: BP 152/71; PULSE 69; RESP 20; TEMP 36.2; O2SAT 98
[2022-08-17 11:47] VITALS: BP 145/69; PULSE 65; RESP 18; O2SAT 98
[2022-08-17 11:51] VITALS: BP 156/70; PULSE 63; RESP 18; TEMP 36.1; O2SAT 98
[2022-08-17 12:01] VITALS: BP 155/66; PULSE 64; RESP 16; TEMP 36.1; O2SAT 99
--- NOTE | 2022-08-17 12:26 | P.OP_ITS ---
Operative Report Date of procedure: August 17, 2022 Pre-op diagnosis: Multiple myeloma Post-op diagnosis: same Procedure done: Mediport placement Implants: PowerPort Surgeon: Dr. Shen Sherwood, DO Anesthesia: MAC Estimated blood loss (mL): 5 Complications: None apparent Brief History: This is a very pleasant 72-year-old gentleman with multiple myeloma. Mediport placement was requested for therapy. The risk and benefits were explained and documented. Procedure: They put another order I will do right now things the patient was taken to the operating room and placed supine on the operating room table. All bony prominences were padded. She was given IV sedation and monitored throughout the case by the anesthesia personnel. SCDs were placed and turned on. The arms were tucked to the side. Patient received Ancef 2 g preoperatively IV. The bilateral chest wall was prepped and draped in usual sterile fashion using chlorhexidine base prep. Sterile drapes were applied. We did procedure pause prior to beginning. An 18 gauge needle was placed in the left subclavian vein. Dark, nonpulsatile blood was aspirated. A guidewire was placed through the needle centrally toward the atrial/vena caval junction. Fluoroscopy visualized good placement. The needle was removed and the guidewire was clipped to the drape with a hemostat. Further local anesthetic was infiltrated in the soft tissues of the left chest wall and a #15 blade was used to make a horizontal skin incision. A subcutaneous Mediport pocket was created using Bovie cautery, dissecting down through the skin and subcutaneous tissues. Meticulous hemostasis was achieved. The Mediport was sutured in position using 3-0 vicryl suture x2 stitches. A #15 blade was used to make a small skin sudhir around the guidewire insertion area. The Mediport tubing was tunneled through the subcutaneous tissues up to the needle insertion location. A dilator with a peel-away sheath was placed over the guidewire and placed centrally. After measuring the Mediport tubing was cut to length so that the tip would end at the atrial/vena caval junction. The inner cannula and the guidewire were removed, leaving the dilator sheath in place. The Mediport was flushed. The tip of the catheter was inserted through the peel-away sheath and the peel-away sheath removed in the standard fashion. The Mediport was accessed with a straight Harrison needle and dark, nonpulsatile blood was aspirated and flushed using heparinized saline to hep-lock the Mediport. Final fluoroscopy visualization showed no kink in the catheter and the tip of the Mediport tubing near the atrial/vena caval junction. Both skin incisions were thoroughly irrigated and suctioned dry. Meticulous hemostasis noted. The dermis was approximated with 3-0 Vicryl in an interrupted fashion. Skin was closed with Dermabond. Patient was awakened from anesthesia and transferred via her cart to the r ecovery room in stable condition. All needle, sponge, and instrument counts were correct per the operating personnel x2 counts.
[2022-08-17 12:36] VITALS: BP 168/80; PULSE 65; RESP 18; TEMP 37.1; O2SAT 100
--- NOTE | 2022-08-17 16:10 | ANE.PACU2 ---
Inpatient post-anesthesia follow up: Airway intact: Yes Vital signs: Temperature 98.7 F Pulse Rate 65 Respiratory Rate 18 Blood Pressure 168/80 Pulse Oximetry 100 Oxygen Delivery Me thod Room Air Oxygen Flow Rate Fraction of Inspir ed Oxygen Hydration adequate: Yes Nausea and vomiting: No Pain level: 1 Mental status: Baseline
== END 2022-08-17 12:43 | disposition home or self-care (01) ==
PROVIDERS: PCP Family Medicine; Visit Provider Surgery
PROC: (CPT 36561; principal; 2022-08-17 10:30)
DX: C90.00 Multiple myeloma not having achieved remission (principal)
CPT/HCPCS: 36561; 71045; 76000; C1788; J0690; J1644; J2704; J7030

== ENCOUNTER 2022-08-29 07:30 | Oncology outpatient (recurring) (ONCR) | payer MEDICARE, OTHER, SELFPAY ==
[2022-08-20 08:09] VITALS: BP 155/82; PULSE 84; RESP 16; TEMP 36.4; O2SAT 99
[2022-08-20 08:31] LABS: Basophils % 0.3 %; Eosinophils % 1.2 %; Hematocrit 34.1 % (42.0-52.0); Hemoglobin 11.5 g/dL (11.7-16.6); Lymphocytes # 0.7 10^3/uL (0.8-4.8); Lymphocytes % 19.9 %; Mean Corpuscular HGB Conc 33.7 g/dL (30.0-36.0); Mean Corpuscular Hemoglobin 33.5 pg (28.0-34.0); Mean Corpuscular Volume 99.4 fl (80-94); Monocytes # 0.9 10^3/uL (0.2-0.9); Monocytes % 27.7 %; Neutrophils % 50.6 %; Nucleated Red Blood Cells % 0 %; Platelet Count 39 10^3/cmm (130-400); Red Blood Count 3.43 10^6/uL (4.1-5.3); Red Cell Distribution Width 16.9 % (12.1-15.1); White Blood Count 3.4 10^3/uL (4.0-10.0)
[2022-08-20 08:53] LABS: Alanine Aminotransferase 13 U/L (0-41); Albumin Level 3.7 g/dL (3.5-5.2); Alkaline Phosphatase 79 U/L (40-130); Anion Gap 12.9 (5-19); Aspartate Amino Transferase 16 U/L (0-40); Blood Urea Nitrogen 13 mg/dL (8-23); Calcium 8.9 mg/dL (8.5-10.5); Carbon Dioxide 26 mmol/L (22-29); Chloride 102 mmol/L (98-107); Globulin 2.2 g/dL (1.3-4.6); Glucose 111 mg/dL (65-115); Osmolality Calculated 285 mOsm/kg (285-295); Potassium 3.9 mmol/L (3.5-5.1); Sodium 137 mmol/L (136-145); Total Bilirubin 0.4 mg/dL (0.15-1.2); Total Protein 5.9 g/dL (6.6-8.7)
[2022-08-28 11:39] VITALS: BP 148/73; PULSE 66; RESP 16; TEMP 36.1; O2SAT 98
[2022-08-29 07:32] VITALS: BP 129/77; PULSE 81; RESP 16; TEMP 36.3; O2SAT 98
[2022-08-29 08:01] LABS: Basophils % 0.5 %; Eosinophils # 0.1 10^3/uL (0.0-0.8); Eosinophils % 1.3 %; Hematocrit 33.3 % (42.0-52.0); Hemoglobin 11.1 g/dL (11.7-16.6); Lymphocytes # 1.2 10^3/uL (0.8-4.8); Lymphocytes % 31.1 %; Mean Corpuscular HGB Conc 33.3 g/dL (30.0-36.0); Mean Corpuscular Hemoglobin 34.2 pg (28.0-34.0); Mean Corpuscular Volume 102.5 fl (80-94); Mean Platelet Volume 11.9 fL (7.4-10.4); Monocytes # 0.8 10^3/uL (0.2-0.9); Monocytes % 20.7 %; Neutrophils # 1.83 10^3/uL (1.8-7.7); Neutrophils % 46.1 %; Nucleated Red Blood Cells % 0 %; Platelet Count 103 10^3/cmm (130-400); Red Blood Count 3.25 10^6/uL (4.1-5.3); Red Cell Distribution Width 17.3 % (12.1-15.1)
[2022-08-29 08:23] LABS: Alanine Aminotransferase 12 U/L (0-41); Albumin Level 3.6 g/dL (3.5-5.2); Alkaline Phosphatase 81 U/L (40-130); Anion Gap 10.7 (5-19); Aspartate Amino Transferase 15 U/L (0-40); Blood Urea Nitrogen 18 mg/dL (8-23); Calcium 8.3 mg/dL (8.5-10.5); Carbon Dioxide 25 mmol/L (22-29); Chloride 106 mmol/L (98-107); Globulin 2.2 g/dL (1.3-4.6); Glucose 99 mg/dL (65-115); Osmolality Calculated 288 mOsm/kg (285-295); Potassium 3.7 mmol/L (3.5-5.1); Sodium 138 mmol/L (136-145); Total Bilirubin 0.4 mg/dL (0.15-1.2); Total Protein 5.8 g/dL (6.6-8.7)
[2022-08-29] MEDS: ondansetron 2 mg/ML SDV 2 mL 8 MG IVP (09:29)
[2022-08-29] MEDS: famotidine 20 mg/2 mL INJ IVP (09:31)
[2022-08-29] MEDS: diphenhydrAMINE 50 mg/mL SDV 1mL 25 MG IVP (09:32)
[2022-08-29] MEDS: acetaminophen 325 mg Tablet 650 MG PO (09:36)
[2022-08-29] MEDS: dexamethasone 20 MG in sodium chloride 0.9% 50 ML 188 MG IV (09:38)
[2022-08-29] MEDS: dextrose 5% 250 ML 75 ML IV (09:39)
[2022-08-29 10:40] VITALS: BP 138/72; PULSE 62; RESP 16; TEMP 36.2; O2SAT 98
[2022-08-29 11:06] VITALS: BP 148/73; PULSE 66; RESP 16; TEMP 36.3; O2SAT 98
[2022-08-29 12:59] VITALS: BP 137/66; PULSE 68; RESP 16; TEMP 35.6; O2SAT 99
== END 2022-08-29 23:59 | disposition home or self-care (01) ==
PROVIDERS: PCP Family Medicine; Visit Provider Internal Medicine Medical Oncology
DX: Z51.11 Encounter for antineoplastic chemotherapy (principal); C90.01 Multiple myeloma in remission; Z51.12 Encounter for antineoplastic immunotherapy
CPT/HCPCS: 80053; 85025; 96367; 96375; 96413; 96415; 96417; J1100; J1200; J1642; J2405; J3490; J7050; J7060; J9047; J9227

== ENCOUNTER → 2022-09-05 13:16 | Outpatient (BNVA) | payer MEDICARE, OTHER, SELFPAY | PROVIDERS: PCP Family Medicine; Visit Provider Surgery | DX: Z95.828 Presence of other vascular implants and grafts (principal) | CPT/HCPCS: 99213 ==

== ENCOUNTER 2022-09-12 08:00 | Oncology outpatient (recurring) (ONCR) | payer MEDICARE, OTHER, SELFPAY ==
[2022-08-30 09:16] VITALS: BMI 24.6
[2022-08-30] MEDS: dextrose 5% 250 ML 75 ML IV (10:10)
[2022-08-30] MEDS: famotidine 20 mg/2 mL INJ IVP (10:12)
[2022-08-30] MEDS: ondansetron 2 mg/ML SDV 2 mL 8 MG IVP (10:12)
[2022-08-30] MEDS: diphenhydrAMINE 50 mg/mL SDV 1mL 25 MG IVP (10:13)
[2022-08-30] MEDS: acetaminophen 325 mg Tablet 650 MG PO (10:14)
[2022-08-30] MEDS: dexamethasone 20 MG in sodium chloride 0.9% 50 ML 188 MG IV (10:16)
[2022-08-30 11:40] VITALS: BP 156/81; PULSE 65; RESP 16; TEMP 36.3; O2SAT 99
[2022-09-03 08:21] LABS: Eosinophils % 0.7 %; Hematocrit 31.2 % (42.0-52.0); Hemoglobin 10.7 g/dL (11.7-16.6); Lymphocytes # 0.6 10^3/uL (0.8-4.8); Lymphocytes % 20.3 %; Mean Corpuscular HGB Conc 34.3 g/dL (30.0-36.0); Mean Platelet Volume 12.4 fL (7.4-10.4); Monocytes # 0.5 10^3/uL (0.2-0.9); Monocytes % 17.3 %; Neutrophils # 1.87 10^3/uL (1.8-7.7); Nucleated Red Blood Cells # 0.1 /100WBC; Nucleated Red Blood Cells % 2.3 %; Platelet Count 37 10^3/cmm (130-400); Red Blood Count 3.06 10^6/uL (4.1-5.3); Red Cell Distribution Width 16.8 % (12.1-15.1); White Blood Count 3.1 10^3/uL (4.0-10.0)
[2022-09-03 08:33] VITALS: BP 160/85; PULSE 71; RESP 18; TEMP 37.1; O2SAT 97
[2022-09-03 08:36] LABS: Alanine Aminotransferase 11 U/L (0-41); Albumin Level 3.3 g/dL (3.5-5.2); Alkaline Phosphatase 79 U/L (40-130); Anion Gap 10.8 (5-19); Aspartate Amino Transferase 13 U/L (0-40); Blood Urea Nitrogen 15 mg/dL (8-23); Calcium 8.7 mg/dL (8.5-10.5); Carbon Dioxide 25 mmol/L (22-29); Chloride 104 mmol/L (98-107); Glucose 85 mg/dL (65-115); Osmolality Calculated 282 mOsm/kg (285-295); Potassium 3.8 mmol/L (3.5-5.1); Sodium 136 mmol/L (136-145); Total Bilirubin 0.4 mg/dL (0.15-1.2); Total Protein 5.3 g/dL (6.6-8.7)
[2022-09-12 08:00] VITALS: BP 173/84; PULSE 94; RESP 18; TEMP 37; O2SAT 99
[2022-09-12 08:12] LABS: Basophils % 0.2 %; Eosinophils % 0.3 %; Hematocrit 36.8 % (42.0-52.0); Hemoglobin 12.3 g/dL (11.7-16.6); Lymphocytes % 22.1 %; Mean Corpuscular HGB Conc 33.4 g/dL (30.0-36.0); Mean Corpuscular Hemoglobin 34.4 pg (28.0-34.0); Mean Corpuscular Volume 102.8 fl (80-94); Mean Platelet Volume 11.2 fL (7.4-10.4); Monocytes # 1.4 10^3/uL (0.2-0.9); Monocytes % 15.7 %; Neutrophils # 5.57 10^3/uL (1.8-7.7); Neutrophils % 61.4 %; Nucleated Red Blood Cells % 0 %; Platelet Count 105 10^3/cmm (130-400); Red Blood Count 3.58 10^6/uL (4.1-5.3); Red Cell Distribution Width 16.3 % (12.1-15.1); White Blood Count 9.1 10^3/uL (4.0-10.0)
[2022-09-12 08:37] LABS: Alanine Aminotransferase 12 U/L (0-41); Albumin Level 3.9 g/dL (3.5-5.2); Alkaline Phosphatase 94 U/L (40-130); Anion Gap 14.9 (5-19); Aspartate Amino Transferase 15 U/L (0-40); Blood Urea Nitrogen 14 mg/dL (8-23); Calcium 8.9 mg/dL (8.5-10.5); Carbon Dioxide 22 mmol/L (22-29); Chloride 101 mmol/L (98-107); Globulin 2.3 g/dL (1.3-4.6); Glucose 83 mg/dL (65-115); Immunoglobulin IGA 50 mg/dL (70-400); Immunoglobulin IGG 555 mg/dL (700-1600); Immunoglobulin IGM 25 mg/dL (40-230); Osmolality Calculated 278 mOsm/kg (285-295); Potassium 3.9 mmol/L (3.5-5.1); Sodium 134 mmol/L (136-145); Total Bilirubin 0.7 mg/dL (0.15-1.2); Total Protein 6.2 g/dL (6.6-8.7)
[2022-09-12] MEDS: acetaminophen 325 mg Tablet 650 MG PO (10:31)
[2022-09-12] MEDS: dextrose 5% 250 ML 75 ML IV (10:32)
[2022-09-12] MEDS: diphenhydrAMINE 50 mg/mL SDV 1mL 25 MG IVP (10:33)
[2022-09-12] MEDS: ondansetron 2 mg/ML SDV 2 mL 8 MG IVP (10:33)
[2022-09-12] MEDS: famotidine 20 mg/2 mL INJ IVP (10:33)
[2022-09-12] MEDS: dexamethasone 20 MG in sodium chloride 0.9% 50 ML 188 MG IV (10:34)
[2022-09-12] MEDS: sodium chloride 0.9% 250 ML 100 ML IV (11:13)
[2022-09-12 11:15] VITALS: BP 156/72; PULSE 82; RESP 16; TEMP 36.7; O2SAT 98
[2022-09-12 11:45] VITALS: BP 129/71; PULSE 83; RESP 16; TEMP 36.8; O2SAT 97
[2022-09-12 12:15] VITALS: BP 123/71; PULSE 79; RESP 16; TEMP 36.6; O2SAT 97
[2022-09-12 12:45] VITALS: BP 142/77; PULSE 83; RESP 16; TEMP 36.6; O2SAT 99
[2022-09-13 12:44] LABS: KAPPA LIGHT CHAIN, FREE, SERUM 4.4 mg/L (3.3-19.4); KAPPA/LAMBDA LIGHT CHAINS FREE 1.91 (0.26-1.65); LAMBDA LIGHT CHAIN, FREE, SERU 2.3 mg/L (5.7-26.3)
[2022-09-13 12:54] LABS: PROTEIN, TOTAL 6.1 g/dL (6.1-8.1)
[2022-09-13 15:10] LABS: ALBUMIN 3.8 g/dL (3.8-4.8); ALPHA 1 GLOBULIN 0.4 g/dL (0.2-0.3); ALPHA 2 GLOBULIN 0.8 g/dL (0.5-0.9); BETA 1 GLOBULIN 0.4 g/dL (0.4-0.6); BETA 2 GLOBULIN 0.3 g/dL (0.2-0.5); GAMMA GLOBULIN 0.5 g/dL (0.8-1.7)
== END 2022-09-12 23:59 | disposition home or self-care (01) ==
PROVIDERS: Nurse Practitioner Family; PCP Family Medicine; Visit Provider Internal Medicine Medical Oncology
DX: Z51.11 Encounter for antineoplastic chemotherapy; C90.02 Multiple myeloma in relapse; R74.8 Abnormal levels of other serum enzymes; D64.9 Anemia, unspecified; Z79.899 Other long term (current) drug therapy; D72.819 Decreased white blood cell count, unspecified
CPT/HCPCS: 36591; 80053; 82784; 83883; 84155; 84165; 85025; 96374; 96375; 96413; 96415; 96417; 99214; J1100; J1200; J1642; J2405; J3490; J7050; J7060; J9047; J9227

== ENCOUNTER → 2022-09-24 07:55 | Outpatient (BNVA) | payer MEDICARE, OTHER, SELFPAY | PROVIDERS: PCP Family Medicine; Visit Provider Internal Medicine Medical Oncology | DX: C90.02 Multiple myeloma in relapse (principal); R74.8 Abnormal levels of other serum enzymes; D64.9 Anemia, unspecified; L27.1 Localized skin eruption due to drugs and medicaments taken internally; T45.1X5A Adverse effect of antineoplastic and immunosuppressive drugs, initial encounter; R23.2 Flushing; Z79.52 Long term (current) use of systemic steroids; Z79.899 Other long term (current) drug therapy | CPT/HCPCS: 99214 ==

== ENCOUNTER 2022-09-25 08:00 | Oncology outpatient (recurring) (ONCR) | payer MEDICARE, OTHER, SELFPAY ==
[2022-09-13] MEDS: acetaminophen 325 mg Tablet 650 MG PO (14:36)
[2022-09-13] MEDS: dextrose 5% 250 ML 75 ML IV (14:37)
[2022-09-13] MEDS: famotidine 20 mg/2 mL INJ IVP (14:37)
[2022-09-13] MEDS: ondansetron 2 mg/ML SDV 2 mL 8 MG IVP (14:38)
[2022-09-13] MEDS: diphenhydrAMINE 50 mg/mL SDV 1mL 25 MG IVP (14:38)
[2022-09-13] MEDS: dexamethasone 20 MG in sodium chloride 0.9% 50 ML 188 MG IV (14:46)
[2022-09-13 16:26] VITALS: BP 146/79; PULSE 67; RESP 16; TEMP 36.7; O2SAT 98
[2022-09-19 08:29] VITALS: BP 147/85; PULSE 88; RESP 18; TEMP 36.5; O2SAT 99
[2022-09-19 08:55] LABS: Basophils % 0.3 %; Eosinophils # 0.1 10^3/uL (0.0-0.8); Eosinophils % 1.9 %; Hematocrit 32.6 % (42.0-52.0); Hemoglobin 10.7 g/dL (11.7-16.6); Lymphocytes # 1.2 10^3/uL (0.8-4.8); Lymphocytes % 31.6 %; Mean Corpuscular HGB Conc 32.8 g/dL (30.0-36.0); Mean Corpuscular Hemoglobin 33.8 pg (28.0-34.0); Mean Corpuscular Volume 102.8 fl (80-94); Mean Platelet Volume 14.1 fL (7.4-10.4); Monocytes # 0.6 10^3/uL (0.2-0.9); Monocytes % 16.1 %; Neutrophils # 1.86 10^3/uL (1.8-7.7); Neutrophils % 49.8 %; Nucleated Red Blood Cells % 0 %; Platelet Count 47 10^3/cmm (130-400); Red Blood Count 3.17 10^6/uL (4.1-5.3); Red Cell Distribution Width 15.7 % (12.1-15.1); White Blood Count 3.7 10^3/uL (4.0-10.0)
[2022-09-19 09:00] LABS: Alanine Aminotransferase 13 U/L (0-41); Albumin Level 3.1 g/dL (3.5-5.2); Alkaline Phosphatase 79 U/L (40-130); Anion Gap 12.7 (5-19); Aspartate Amino Transferase 15 U/L (0-40); Blood Urea Nitrogen 14 mg/dL (8-23); Calcium 8.9 mg/dL (8.5-10.5); Carbon Dioxide 24 mmol/L (22-29); Chloride 103 mmol/L (98-107); Globulin 2.6 g/dL (1.3-4.6); Glucose 93 mg/dL (65-115); Osmolality Calculated 282 mOsm/kg (285-295); Potassium 3.7 mmol/L (3.5-5.1); Sodium 136 mmol/L (136-145); Total Bilirubin 0.5 mg/dL (0.15-1.2); Total Protein 5.7 g/dL (6.6-8.7)
[2022-09-19 09:43] LABS: Slide Review Slide Review Perform
[2022-09-24] VITALS (7 sets, daily range): BP systolic 112–157; BP diastolic 63–89; PULSE 67–86; RESP 16–18; TEMP 35.7–36.6; O2SAT 97–100
[2022-09-24 08:11] LABS: Basophils % 0.5 %; Eosinophils # 0.1 10^3/uL (0.0-0.8); Eosinophils % 1.2 %; Hematocrit 33.3 % (42.0-52.0); Hemoglobin 11.1 g/dL (11.7-16.6); Lymphocytes # 2.1 10^3/uL (0.8-4.8); Lymphocytes % 36.3 %; Mean Corpuscular HGB Conc 33.3 g/dL (30.0-36.0); Mean Corpuscular Hemoglobin 34.8 pg (28.0-34.0); Mean Corpuscular Volume 104.4 fl (80-94); Monocytes # 0.8 10^3/uL (0.2-0.9); Monocytes % 13.1 %; Neutrophils # 2.82 10^3/uL (1.8-7.7); Neutrophils % 48.6 %; Nucleated Red Blood Cells % 0 %; Platelet Count 115 10^3/cmm (130-400); Red Blood Count 3.19 10^6/uL (4.1-5.3); Red Cell Distribution Width 15.1 % (12.1-15.1); White Blood Count 5.8 10^3/uL (4.0-10.0)
[2022-09-24 08:38] LABS: Alanine Aminotransferase 13 U/L (0-41); Albumin Level 3.7 g/dL (3.5-5.2); Alkaline Phosphatase 85 U/L (40-130); Anion Gap 13.9 (5-19); Aspartate Amino Transferase 17 U/L (0-40); Blood Urea Nitrogen 14 mg/dL (8-23); Calcium 8.7 mg/dL (8.5-10.5); Carbon Dioxide 25 mmol/L (22-29); Chloride 104 mmol/L (98-107); Globulin 2.4 g/dL (1.3-4.6); Glucose 90 mg/dL (65-115); Osmolality Calculated 288 mOsm/kg (285-295); Potassium 3.9 mmol/L (3.5-5.1); Sodium 139 mmol/L (136-145); Total Bilirubin 0.3 mg/dL (0.15-1.2); Total Protein 6.1 g/dL (6.6-8.7)
[2022-09-24] MEDS: acetaminophen 325 mg Tablet 650 MG PO (11:56)
[2022-09-24] MEDS: sodium chloride 0.9% 250 ML 75 ML IV (11:57)
[2022-09-24] MEDS: famotidine 20 mg/2 mL INJ IVP (12:02)
[2022-09-24] MEDS: diphenhydrAMINE 50 mg/mL SDV 1mL 25 MG IVP (12:04)
[2022-09-24] MEDS: ondansetron 2 mg/ML SDV 2 mL 8 MG IVP (12:05)
[2022-09-24] MEDS: dexamethasone 20 MG in sodium chloride 0.9% 50 ML 188 MG IV (12:08)
[2022-09-25 08:10] VITALS: BP 134/74; PULSE 102; RESP 16; TEMP 37.2; O2SAT 93
[2022-09-25] MEDS: dextrose 5% 250 ML 75 ML IV (08:29)
[2022-09-25] MEDS: acetaminophen 325 mg Tablet 650 MG PO (08:30)
[2022-09-25] MEDS: famotidine 20 mg/2 mL INJ IVP (08:31)
[2022-09-25] MEDS: diphenhydrAMINE 50 mg/mL SDV 1mL 25 MG IVP (08:32)
[2022-09-25] MEDS: ondansetron 2 mg/ML SDV 2 mL 8 MG IVP (08:33)
[2022-09-25] MEDS: dexamethasone 20 MG in sodium chloride 0.9% 50 ML 188 MG IV (08:41)
[2022-09-25 09:48] VITALS: BP 123/71; PULSE 71; TEMP 36.5; O2SAT 97
== END 2022-09-25 23:59 | disposition home or self-care (01) ==
PROVIDERS: PCP Family Medicine; Visit Provider Internal Medicine Medical Oncology
DX: Z51.11 Encounter for antineoplastic chemotherapy (principal); C90.01 Multiple myeloma in remission
CPT/HCPCS: 96413 ×3; 96367 ×3; 96361 ×2; 96375 ×3; 96417 ×2; 96415 ×2; 80053; 85025; 99215; J1100; J1200; J1642; J2405; J3490; J7050; J7060; J9047; J9227

== ENCOUNTER 2022-10-09 08:30 | Oncology outpatient (recurring) (ONCR) | payer MEDICARE, OTHER, SELFPAY ==
[2022-10-08 07:55] VITALS: BP 128/87; PULSE 85; RESP 18; TEMP 36.8; O2SAT 97
[2022-10-08 08:14] LABS: Basophils % 0.4 %; Eosinophils # 0.1 10^3/uL (0.0-0.8); Eosinophils % 1.7 %; Hematocrit 35.7 % (42.0-52.0); Hemoglobin 11.8 g/dL (11.7-16.6); Lymphocytes # 1.5 10^3/uL (0.8-4.8); Mean Corpuscular HGB Conc 33.1 g/dL (30.0-36.0); Mean Corpuscular Hemoglobin 35.5 pg (28.0-34.0); Mean Corpuscular Volume 107.5 fl (80-94); Mean Platelet Volume 10.8 fL (7.4-10.4); Monocytes # 0.8 10^3/uL (0.2-0.9); Monocytes % 15.9 %; Neutrophils # 2.35 10^3/uL (1.8-7.7); Neutrophils % 49.8 %; Nucleated Red Blood Cells % 0 %; Platelet Count 131 10^3/cmm (130-400); Red Blood Count 3.32 10^6/uL (4.1-5.3); Red Cell Distribution Width 15.3 % (12.1-15.1); White Blood Count 4.7 10^3/uL (4.0-10.0)
[2022-10-08 08:31] LABS: Alanine Aminotransferase 12 U/L (0-41); Albumin Level 3.7 g/dL (3.5-5.2); Alkaline Phosphatase 91 U/L (40-130); Anion Gap 12.1 (5-19); Aspartate Amino Transferase 16 U/L (0-40); Blood Urea Nitrogen 18 mg/dL (8-23); Calcium 9.2 mg/dL (8.5-10.5); Carbon Dioxide 25 mmol/L (22-29); Chloride 104 mmol/L (98-107); Globulin 2.1 g/dL (1.3-4.6); Glucose 98 mg/dL (65-115); Osmolality Calculated 286 mOsm/kg (285-295); Potassium 4.1 mmol/L (3.5-5.1); Sodium 137 mmol/L (136-145); Total Bilirubin 0.5 mg/dL (0.15-1.2); Total Protein 5.8 g/dL (6.6-8.7)
[2022-10-09 08:43] VITALS: BMI 24.7
[2022-10-09] MEDS: dexamethasone 4 mg Tablet 20 MG PO (09:01)
[2022-10-09] MEDS: acetaminophen 325 mg Tablet 650 MG PO (09:01)
[2022-10-09] MEDS: sodium chloride 0.9% 250 ML 75 ML IV (09:02)
[2022-10-09] MEDS: diphenhydrAMINE 50 mg/mL SDV 1mL 25 MG IVP (09:06)
[2022-10-09] MEDS: ondansetron 2 mg/ML SDV 2 mL 8 MG IVP (09:10)
[2022-10-09] MEDS: famotidine 20 mg/2 mL INJ IVP (09:15)
[2022-10-09 09:30] VITALS: BP 142/78; PULSE 78; RESP 17; TEMP 36.4; O2SAT 98
[2022-10-09] MEDS: [UNRECOGNIZED DRUG - OTHER] IV (09:30)
[2022-10-09] MEDS: SODIUM CHLORIDE 0.9% IV (09:30)
[2022-10-09 10:00] VITALS: BP 122/68; PULSE 74; RESP 18; TEMP 36.4; O2SAT 93
[2022-10-09 10:30] VITALS: BP 105/56; PULSE 72; RESP 18; TEMP 36.1; O2SAT 98
[2022-10-09 11:00] VITALS: BP 145/67; PULSE 67; RESP 18; TEMP 36.1; O2SAT 97
[2022-10-09] MEDS: dextrose 5% 250 ML 75 ML IV (12:18)
[2022-10-09 12:48] VITALS: BP 131/77; PULSE 72; RESP 18; TEMP 36.6; O2SAT 97
== END 2022-10-09 23:59 | disposition home or self-care (01) ==
PROVIDERS: PCP Family Medicine; Visit Provider Internal Medicine Medical Oncology
DX: C90.01 Multiple myeloma in remission; Z53.9 Procedure and treatment not carried out, unspecified reason; L98.9 Disorder of the skin and subcutaneous tissue, unspecified; D70.1 Agranulocytosis secondary to cancer chemotherapy; T45.1X5A Adverse effect of antineoplastic and immunosuppressive drugs, initial encounter; Z51.11 Encounter for antineoplastic chemotherapy; R53.0 Neoplastic (malignant) related fatigue; R74.8 Abnormal levels of other serum enzymes; R79.89 Other specified abnormal findings of blood chemistry; Z79.52 Long term (current) use of systemic steroids; Z79.899 Other long term (current) drug therapy
CPT/HCPCS: 36591; 80053; 85025; 96375; 96413; 96415; 96417; 99214; J1200; J1642; J2405; J3490; J7050; J7060; J8540; J9047; J9227

== ENCOUNTER 2022-10-23 08:00 | Oncology outpatient (recurring) (ONCR) | payer MEDICARE, OTHER, SELFPAY ==
[2022-10-16 07:55] VITALS: BP 144/77; PULSE 90; RESP 18; TEMP 36.7; O2SAT 98
[2022-10-16 08:10] LABS: Basophils % 0.2 %; Eosinophils # 0.1 10^3/uL (0.0-0.8); Eosinophils % 1.4 %; Hematocrit 33.9 % (42.0-52.0); Hemoglobin 11.3 g/dL (11.7-16.6); Lymphocytes # 1.3 10^3/uL (0.8-4.8); Lymphocytes % 28.9 %; Mean Corpuscular HGB Conc 33.3 g/dL (30.0-36.0); Mean Corpuscular Hemoglobin 36.1 pg (28.0-34.0); Mean Corpuscular Volume 108.3 fl (80-94); Mean Platelet Volume 11.6 fL (7.4-10.4); Monocytes # 0.8 10^3/uL (0.2-0.9); Monocytes % 17.6 %; Neutrophils # 2.23 10^3/uL (1.8-7.7); Neutrophils % 51.7 %; Nucleated Red Blood Cells % 0 %; Platelet Count 78 10^3/cmm (130-400); Red Blood Count 3.13 10^6/uL (4.1-5.3); Red Cell Distribution Width 15.6 % (12.1-15.1); White Blood Count 4.3 10^3/uL (4.0-10.0)
[2022-10-16 08:53] LABS: Alanine Aminotransferase 11 U/L (0-41); Albumin Level 3.6 g/dL (3.5-5.2); Alkaline Phosphatase 69 U/L (40-130); Anion Gap 13.6 (5-19); Aspartate Amino Transferase 14 U/L (0-40); Blood Urea Nitrogen 18 mg/dL (8-23); Carbon Dioxide 24 mmol/L (22-29); Chloride 105 mmol/L (98-107); Globulin 1.9 g/dL (1.3-4.6); Glucose 110 mg/dL (65-115); Osmolality Calculated 291 mOsm/kg (285-295); Potassium 3.6 mmol/L (3.5-5.1); Sodium 139 mmol/L (136-145); Total Bilirubin 0.5 mg/dL (0.15-1.2); Total Protein 5.5 g/dL (6.6-8.7)
[2022-10-16] MEDS: acetaminophen 325 mg Tablet 650 MG PO (10:04)
[2022-10-16] MEDS: dextrose 5% 250 ML 75 ML IV (10:04)
[2022-10-16] MEDS: ondansetron 2 mg/ML SDV 2 mL 8 MG IVP (10:08)
[2022-10-16] MEDS: famotidine 20 mg/2 mL INJ IVP (10:10)
[2022-10-16] MEDS: diphenhydrAMINE 50 mg/mL SDV 1mL 25 MG IVP (10:12)
[2022-10-16] MEDS: CARFILZOMIB IV (10:30)
[2022-10-16] MEDS: DEXTROSE 5% IV (10:30)
[2022-10-16 12:12] VITALS: BP 120/78; BP 138/75; PULSE 70; PULSE 74; RESP 18; TEMP 35.9; TEMP 36.6; O2SAT 97; O2SAT 98
[2022-10-23 07:51] VITALS: BP 157/91; PULSE 64; RESP 18; TEMP 36.6; O2SAT 93; BMI 25.0
[2022-10-23 08:08] LABS: Basophils % 0.2 %; Eosinophils # 0.1 10^3/uL (0.0-0.8); Eosinophils % 2.7 %; Hematocrit 34.7 % (42.0-52.0); Hemoglobin 11.7 g/dL (11.7-16.6); Lymphocytes # 1.2 10^3/uL (0.8-4.8); Lymphocytes % 27.3 %; Mean Corpuscular HGB Conc 33.7 g/dL (30.0-36.0); Mean Corpuscular Hemoglobin 35.7 pg (28.0-34.0); Mean Corpuscular Volume 105.8 fl (80-94); Mean Platelet Volume 11.2 fL (7.4-10.4); Monocytes # 0.8 10^3/uL (0.2-0.9); Monocytes % 19.1 %; Neutrophils # 2.21 10^3/uL (1.8-7.7); Neutrophils % 50.5 %; Nucleated Red Blood Cells % 0 %; Platelet Count 87 10^3/cmm (130-400); Red Blood Count 3.28 10^6/uL (4.1-5.3); White Blood Count 4.4 10^3/uL (4.0-10.0)
[2022-10-23 09:06] LABS: Alanine Aminotransferase 13 U/L (0-41); Albumin Level 3.7 g/dL (3.5-5.2); Alkaline Phosphatase 67 U/L (40-130); Anion Gap 14.8 (5-19); Aspartate Amino Transferase 15 U/L (0-40); Blood Urea Nitrogen 15 mg/dL (8-23); Calcium 8.8 mg/dL (8.5-10.5); Carbon Dioxide 24 mmol/L (22-29); Chloride 103 mmol/L (98-107); Globulin 1.6 g/dL (1.3-4.6); Glucose 91 mg/dL (65-115); Osmolality Calculated 286 mOsm/kg (285-295); Potassium 3.8 mmol/L (3.5-5.1); Sodium 138 mmol/L (136-145); Total Bilirubin 0.5 mg/dL (0.15-1.2); Total Protein 5.3 g/dL (6.6-8.7)
[2022-10-23] MEDS: sodium chloride 0.9% 250 ML 100 ML IV (10:45)
[2022-10-23] MEDS: acetaminophen 325 mg Tablet 650 MG PO (10:46)
[2022-10-23] MEDS: famotidine 20 mg/2 mL INJ IVP (10:47)
[2022-10-23] MEDS: diphenhydrAMINE 50 mg/mL SDV 1mL 25 MG IVP (10:49)
[2022-10-23] MEDS: ondansetron 2 mg/ML SDV 2 mL 8 MG IVP (10:51)
[2022-10-23] MEDS: [UNRECOGNIZED DRUG - OTHER] IV (11:12)
[2022-10-23] MEDS: SODIUM CHLORIDE 0.9% IV (11:12)
[2022-10-23 11:45] VITALS: BP 153/88; PULSE 78; TEMP 36.2; O2SAT 98
[2022-10-23 12:15] VITALS: BP 160/83; PULSE 64; TEMP 36.6; O2SAT 98
[2022-10-23 12:45] VITALS: BP 149/77; PULSE 73; TEMP 36.4; O2SAT 98
[2022-10-23] MEDS: CARFILZOMIB IV (13:37)
[2022-10-23] MEDS: DEXTROSE 5% IV (13:37)
[2022-10-23] MEDS: dextrose 5% 250 ML 75 ML IV (13:38)
[2022-10-23 15:00] VITALS: BP 142/82; PULSE 71; TEMP 36.4
== END 2022-10-23 23:59 | disposition home or self-care (01) ==
PROVIDERS: Nurse Practitioner Family; PCP Family Medicine; Visit Provider Internal Medicine Medical Oncology
DX: C90.02 Multiple myeloma in relapse (principal)
CPT/HCPCS: 80053; 85025; 96361; 96375; 96413; 96415; 96417; J1200; J1642; J2405; J3490; J7050; J7060; J9047; J9227

== ENCOUNTER 2022-11-06 08:00 | Oncology outpatient (recurring) (ONCR) | payer MEDICARE, OTHER, SELFPAY ==
[2022-10-30 07:53] VITALS: BMI 25.3
[2022-10-30 07:54] VITALS: BP 159/80; PULSE 87; RESP 18; TEMP 36.2; O2SAT 98
[2022-10-30 08:10] LABS: Basophils % 0.2 %; Eosinophils # 0.1 10^3/uL (0.0-0.8); Eosinophils % 1.9 %; Hematocrit 34.7 % (42.0-52.0); Hemoglobin 11.5 g/dL (11.7-16.6); Lymphocytes # 1.1 10^3/uL (0.8-4.8); Lymphocytes % 23.7 %; Mean Corpuscular HGB Conc 33.1 g/dL (30.0-36.0); Mean Corpuscular Hemoglobin 35.3 pg (28.0-34.0); Mean Corpuscular Volume 106.4 fl (80-94); Mean Platelet Volume 12.2 fL (7.4-10.4); Monocytes # 0.9 10^3/uL (0.2-0.9); Monocytes % 18.7 %; Neutrophils # 2.66 10^3/uL (1.8-7.7); Neutrophils % 55.3 %; Nucleated Red Blood Cells % 0.4 %; Platelet Count 78 10^3/cmm (130-400); Red Blood Count 3.26 10^6/uL (4.1-5.3); White Blood Count 4.8 10^3/uL (4.0-10.0)
[2022-10-30 08:32] LABS: Alanine Aminotransferase 11 U/L (0-41); Albumin Level 3.7 g/dL (3.5-5.2); Alkaline Phosphatase 66 U/L (40-130); Anion Gap 12.9 (5-19); Aspartate Amino Transferase 16 U/L (0-40); Blood Urea Nitrogen 19 mg/dL (8-23); Calcium 9.1 mg/dL (8.5-10.5); Carbon Dioxide 26 mmol/L (22-29); Chloride 105 mmol/L (98-107); Glucose 103 mg/dL (65-115); Osmolality Calculated 293 mOsm/kg (285-295); Potassium 3.9 mmol/L (3.5-5.1); Sodium 140 mmol/L (136-145); Total Bilirubin 0.5 mg/dL (0.15-1.2); Total Protein 5.7 g/dL (6.6-8.7)
[2022-11-06 07:52] VITALS: BP 158/89; PULSE 94; RESP 18; TEMP 36.7; O2SAT 93
[2022-11-06 07:54] VITALS: BMI 25.0
[2022-11-06 08:06] LABS: Basophils % 0.6 %; Eosinophils # 0.1 10^3/uL (0.0-0.8); Eosinophils % 2.6 %; Hematocrit 36.3 % (42.0-52.0); Hemoglobin 12.2 g/dL (11.7-16.6); Lymphocytes # 1.3 10^3/uL (0.8-4.8); Lymphocytes % 25.9 %; Mean Corpuscular HGB Conc 33.6 g/dL (30.0-36.0); Mean Corpuscular Hemoglobin 36.1 pg (28.0-34.0); Mean Corpuscular Volume 107.4 fl (80-94); Mean Platelet Volume 10.3 fL (7.4-10.4); Monocytes # 0.9 10^3/uL (0.2-0.9); Monocytes % 17.9 %; Neutrophils # 2.58 10^3/uL (1.8-7.7); Neutrophils % 52.6 %; Nucleated Red Blood Cells % 0 %; Platelet Count 143 10^3/cmm (130-400); Red Blood Count 3.38 10^6/uL (4.1-5.3); Red Cell Distribution Width 14.4 % (12.1-15.1); White Blood Count 4.9 10^3/uL (4.0-10.0)
[2022-11-06 08:36] LABS: Alanine Aminotransferase 11 U/L (0-41); Albumin Level 3.7 g/dL (3.5-5.2); Alkaline Phosphatase 68 U/L (40-130); Anion Gap 11.6 (5-19); Aspartate Amino Transferase 15 U/L (0-40); Blood Urea Nitrogen 16 mg/dL (8-23); Calcium 8.8 mg/dL (8.5-10.5); Carbon Dioxide 27 mmol/L (22-29); Chloride 105 mmol/L (98-107); Globulin 2.2 g/dL (1.3-4.6); Glucose 121 mg/dL (65-115); Immunoglobulin IGA 50 mg/dL (70-400); Immunoglobulin IGG 394 mg/dL (700-1600); Immunoglobulin IGM 25 mg/dL (40-230); Osmolality Calculated 292 mOsm/kg (285-295); Potassium 3.6 mmol/L (3.5-5.1); Sodium 140 mmol/L (136-145); Total Bilirubin 0.4 mg/dL (0.15-1.2); Total Protein 5.9 g/dL (6.6-8.7)
[2022-11-06] MEDS: dextrose 5% 250 ML 75 ML IV (09:44)
[2022-11-06] MEDS: acetaminophen 325 mg Tablet 650 MG PO (09:45)
[2022-11-06] MEDS: ondansetron 2 mg/ML SDV 2 mL 8 MG IVP (09:46)
[2022-11-06] MEDS: famotidine 20 mg/2 mL INJ IVP (09:52)
[2022-11-06] MEDS: diphenhydrAMINE 50 mg/mL SDV 1mL 25 MG IVP (09:56)
[2022-11-06 10:45] VITALS: BP 132/71; PULSE 76; RESP 20; TEMP 35.9; O2SAT 97
[2022-11-06 11:15] VITALS: BP 130/66; PULSE 72; RESP 18; TEMP 35.9; O2SAT 98
[2022-11-06 11:45] VITALS: BP 151/83; PULSE 74; RESP 18; TEMP 36.2; O2SAT 98
[2022-11-06] MEDS: sodium chloride 0.9% 250 ML 75 ML IV (12:30)
[2022-11-06 13:35] VITALS: BP 145/80; PULSE 72; RESP 18; TEMP 36.6; O2SAT 99
[2022-11-07 10:40] LABS: PROTEIN, TOTAL 5.4 g/dL (6.1-8.1)
[2022-11-07 16:01] LABS: KAPPA LIGHT CHAIN, FREE, SERUM 3.6 mg/L (3.3-19.4)
[2022-11-08 08:40] LABS: ALBUMIN 3.5 g/dL (3.8-4.8); ALPHA 1 GLOBULIN 0.3 g/dL (0.2-0.3); ALPHA 2 GLOBULIN 0.6 g/dL (0.5-0.9); BETA 1 GLOBULIN 0.4 g/dL (0.4-0.6); BETA 2 GLOBULIN 0.3 g/dL (0.2-0.5); GAMMA GLOBULIN 0.4 g/dL (0.8-1.7)
== END 2022-11-06 23:59 | disposition home or self-care (01) ==
PROVIDERS: Nurse Practitioner Family; PCP Family Medicine; Visit Provider Internal Medicine Medical Oncology
DX: Z51.11 Encounter for antineoplastic chemotherapy; C90.02 Multiple myeloma in relapse; N28.89 Other specified disorders of kidney and ureter; R74.8 Abnormal levels of other serum enzymes; Z79.52 Long term (current) use of systemic steroids; Z79.899 Other long term (current) drug therapy
CPT/HCPCS: 36591; 80053; 82784; 83883; 84155; 84165; 85025; 96375; 96413; 96417; 99214; J1200; J1642; J2405; J3490; J7050; J7060; J9047; J9227

== ENCOUNTER 2022-11-20 08:00 | Oncology outpatient (recurring) (ONCR) | payer MEDICARE, OTHER, SELFPAY ==
[2022-11-13 08:08] VITALS: BP 156/82; PULSE 97; RESP 18; TEMP 36.6; O2SAT 97
[2022-11-13 08:10] VITALS: BMI 25.2
[2022-11-13 08:30] LABS: Basophils % 0.3 %; Eosinophils # 0.2 10^3/uL (0.0-0.8); Eosinophils % 3.7 %; Hematocrit 34.5 % (42.0-52.0); Hemoglobin 11.9 g/dL (11.7-16.6); Lymphocytes # 1.3 10^3/uL (0.8-4.8); Lymphocytes % 21.4 %; Mean Corpuscular HGB Conc 34.5 g/dL (30.0-36.0); Mean Corpuscular Volume 104.2 fl (80-94); Monocytes # 1.2 10^3/uL (0.2-0.9); Monocytes % 19.6 %; Neutrophils % 54.8 %; Nucleated Red Blood Cells % 0 %; Platelet Count 96 10^3/cmm (130-400); Red Blood Count 3.31 10^6/uL (4.1-5.3)
[2022-11-13 08:39] LABS: Alanine Aminotransferase 9 U/L (0-41); Albumin Level 3.7 g/dL (3.5-5.2); Alkaline Phosphatase 66 U/L (40-130); Anion Gap 11.8 (5-19); Aspartate Amino Transferase 16 U/L (0-40); Blood Urea Nitrogen 20 mg/dL (8-23); Calcium 8.9 mg/dL (8.5-10.5); Carbon Dioxide 27 mmol/L (22-29); Chloride 102 mmol/L (98-107); Globulin 2.1 g/dL (1.3-4.6); Glucose 106 mg/dL (65-115); Osmolality Calculated 287 mOsm/kg (285-295); Potassium 3.8 mmol/L (3.5-5.1); Sodium 137 mmol/L (136-145); Total Bilirubin 0.5 mg/dL (0.15-1.2); Total Protein 5.8 g/dL (6.6-8.7)
[2022-11-13] MEDS: dextrose 5% 250 ML 75 ML IV (09:51)
[2022-11-13] MEDS: diphenhydrAMINE 50 mg/mL SDV 1mL 25 MG IVP (09:56)
[2022-11-13] MEDS: acetaminophen 325 mg Tablet 650 MG PO (09:56)
[2022-11-13] MEDS: famotidine 20 mg/2 mL INJ IVP (10:00)
[2022-11-13] MEDS: ondansetron 2 mg/ML SDV 2 mL 8 MG IVP (10:03)
[2022-11-13 10:50] VITALS: BP 158/89; PULSE 80; RESP 18; TEMP 36.6; O2SAT 98
[2022-11-20] VITALS (7 sets, daily range): BP systolic 134–164; BP diastolic 72–82; PULSE 50–77; RESP 16–18; TEMP 35.6–36.4; O2SAT 95–99; BMI 25.3
[2022-11-20 08:02] LABS: Basophils % 0.1 %; Eosinophils % 0.1 %; Hematocrit 33.3 % (42.0-52.0); Hemoglobin 11.4 g/dL (11.7-16.6); Lymphocytes # 1.7 10^3/uL (0.8-4.8); Mean Corpuscular HGB Conc 34.2 g/dL (30.0-36.0); Mean Platelet Volume 11.4 fL (7.4-10.4); Monocytes # 1.5 10^3/uL (0.2-0.9); Monocytes % 12.1 %; Neutrophils # 9.39 10^3/uL (1.8-7.7); Neutrophils % 73.7 %; Nucleated Red Blood Cells % 0 %; Platelet Count 98 10^3/cmm (130-400); Red Blood Count 3.17 10^6/uL (4.1-5.3); Red Cell Distribution Width 14.5 % (12.1-15.1); White Blood Count 12.7 10^3/uL (4.0-10.0)
[2022-11-20 08:23] LABS: Alanine Aminotransferase 10 U/L (0-41); Albumin Level 3.9 g/dL (3.5-5.2); Alkaline Phosphatase 65 U/L (40-130); Anion Gap 13.8 (5-19); Aspartate Amino Transferase 11 U/L (0-40); Blood Urea Nitrogen 26 mg/dL (8-23); Calcium 9.3 mg/dL (8.5-10.5); Carbon Dioxide 26 mmol/L (22-29); Chloride 103 mmol/L (98-107); Globulin 1.9 g/dL (1.3-4.6); Glucose 79 mg/dL (65-115); Osmolality Calculated 292 mOsm/kg (285-295); Potassium 3.8 mmol/L (3.5-5.1); Sodium 139 mmol/L (136-145); Total Bilirubin 0.5 mg/dL (0.15-1.2); Total Protein 5.8 g/dL (6.6-8.7)
[2022-11-20] MEDS: famotidine 20 mg/2 mL INJ IVP (09:11)
[2022-11-20] MEDS: sodium chloride 0.9% 250 ML 75 ML IV (09:11)
[2022-11-20] MEDS: diphenhydrAMINE 50 mg/mL SDV 1mL 25 MG IVP (09:13)
[2022-11-20] MEDS: ondansetron 2 mg/ML SDV 2 mL 8 MG IVP (09:16)
[2022-11-20] MEDS: acetaminophen 325 mg Tablet 650 MG PO (09:16)
[2022-11-20] MEDS: dextrose 5% 250 ML 75 ML IV (12:41)
== END 2022-11-20 23:59 | disposition home or self-care (01) ==
PROVIDERS: PCP Family Medicine; Visit Provider Internal Medicine Medical Oncology
DX: Z51.11 Encounter for antineoplastic chemotherapy; C90.02 Multiple myeloma in relapse
CPT/HCPCS: 80053; 85025; 96374; 96375; 96413; 96415; 96417; J1200; J1642; J2405; J3490; J7050; J7060; J9047; J9227

== ENCOUNTER 2022-12-04 07:48 | Oncology outpatient (recurring) (ONCR) | payer MEDICARE, OTHER, SELFPAY ==
[2022-12-04 08:12] LABS: Basophils % 0.3 %; Eosinophils # 0.4 10^3/uL (0.0-0.8); Eosinophils % 4.3 %; Hematocrit 36.3 % (37-53); Lymphocytes # 1.2 10^3/uL (0.8-4.8); Lymphocytes % 12.9 %; Mean Corpuscular HGB Conc 33.9 g/dL (30-55); Mean Corpuscular Hemoglobin 35.5 pg (27-33); Mean Corpuscular Volume 104.9 fl (82-101); Mean Platelet Volume 10.2 fL (7.4-10.4); Monocytes # 1.1 10^3/uL (0.2-0.9); Monocytes % 11.7 %; Neutrophils % 70.3 %; Nucleated Red Blood Cells % 0 %; Platelet Count 162 10^3/cmm (157-399); Red Blood Count 3.46 10^6/uL (3.85-5.65); Red Cell Distribution Width 13.6 % (12.1-15.1); White Blood Count 9.25 10^3/uL (3.29-11.43)
[2022-12-04 08:26] LABS: Alanine Aminotransferase 9 U/L (0-41); Albumin Level 3.7 g/dL (3.5-5.2); Alkaline Phosphatase 74 U/L (40-130); Anion Gap 12.1 (5-19); Aspartate Amino Transferase 13 U/L (0-40); Blood Urea Nitrogen 16 mg/dL (8-23); Calcium 8.7 mg/dL (8.5-10.5); Carbon Dioxide 25 mmol/L (22-29); Chloride 100 mmol/L (98-107); Globulin 2.3 g/dL (1.3-4.6); Glucose 101 mg/dL (65-115); Immunoglobulin IGG 334 mg/dL (700-1600); Osmolality Calculated 277 mOsm/kg (285-295); Potassium 4.1 mmol/L (3.5-5.1); Sodium 133 mmol/L (136-145); Total Bilirubin 0.6 mg/dL (0.15-1.2)
[2022-12-04 08:47] LABS: Immunoglobulin IGA 6 mg/dL (70-400); Immunoglobulin IGM 5 mg/dL (40-230)
[2022-12-04] MEDS: sodium chloride 0.9% 250 ML 75 ML IV (09:16)
[2022-12-04] MEDS: diphenhydrAMINE 50 mg/mL SDV 1mL 25 MG IVP (09:18)
[2022-12-04] MEDS: acetaminophen 325 mg Tablet 650 MG PO (09:23)
[2022-12-04] MEDS: famotidine 20 mg/2 mL INJ IVP (09:24)
[2022-12-04] MEDS: ondansetron 2 mg/ML SDV 2 mL 8 MG IVP (09:28)
[2022-12-04 09:55] VITALS: BP 113/66; PULSE 76; RESP 17; TEMP 36.1; O2SAT 96
[2022-12-04 10:27] VITALS: BP 130/71; PULSE 71; RESP 16; TEMP 36.1; O2SAT 97
[2022-12-04 10:48] VITALS: BP 111/62; PULSE 77; RESP 18; TEMP 35.8; O2SAT 97
[2022-12-04 11:20] VITALS: BP 115/61; PULSE 77; RESP 18; TEMP 35.8; O2SAT 98
[2022-12-04] MEDS: dextrose 5% 250 ML 100 ML IV (12:16)
[2022-12-04 13:50] VITALS: BP 124/84; PULSE 77; RESP 16; TEMP 35.6; O2SAT 99
[2022-12-05 10:49] LABS: PROTEIN, TOTAL 5.5 g/dL (6.1-8.1)
[2022-12-05 11:04] LABS: KAPPA LIGHT CHAIN, FREE, SERUM 3.5 mg/L (3.3-19.4); KAPPA/LAMBDA LIGHT CHAINS FREE 2.06 (0.26-1.65); LAMBDA LIGHT CHAIN, FREE, SERU 1.7 mg/L (5.7-26.3)
[2022-12-06 09:29] LABS: ABNORMAL PROTEIN BAND 1 0.1 g/dL (NONE DETECTED); ALBUMIN 3.3 g/dL (3.8-4.8); ALPHA 1 GLOBULIN 0.5 g/dL (0.2-0.3); ALPHA 2 GLOBULIN 0.8 g/dL (0.5-0.9); BETA 1 GLOBULIN 0.4 g/dL (0.4-0.6); BETA 2 GLOBULIN 0.3 g/dL (0.2-0.5); GAMMA GLOBULIN 0.3 g/dL (0.8-1.7)
== END 2022-12-04 23:59 | disposition home or self-care (01) ==
PROVIDERS: PCP Family Medicine; Visit Provider Internal Medicine Medical Oncology
DX: Z51.11 Encounter for antineoplastic chemotherapy (principal); C90.01 Multiple myeloma in remission; L98.9 Disorder of the skin and subcutaneous tissue, unspecified; D70.1 Agranulocytosis secondary to cancer chemotherapy; T45.1X5A Adverse effect of antineoplastic and immunosuppressive drugs, initial encounter; D64.9 Anemia, unspecified; N28.89 Other specified disorders of kidney and ureter; D69.6 Thrombocytopenia, unspecified; R19.7 Diarrhea, unspecified; R51.9 Headache, unspecified; Z79.899 Other long term (current) drug therapy; Z92.21 Personal history of antineoplastic chemotherapy; Z53.9 Procedure and treatment not carried out, unspecified reason
CPT/HCPCS: 80053; 82784; 83883; 84155; 84165; 85025; 96368; 96374; 96375; 96376; 96413; 96415; 96417; 99214; J1200; J1642; J2405; J3490; J7050; J7060; J9047; J9227

== ENCOUNTER → 2022-12-12 08:26 | Outpatient (BNVA) | payer MEDICARE, OTHER, SELFPAY | PROVIDERS: PCP Family Medicine; Visit Provider Nurse Practitioner Family | DX: L57.0 Actinic keratosis (principal); C90.01 Multiple myeloma in remission; L82.1 Other seborrheic keratosis; L81.4 Other melanin hyperpigmentation; D22.5 Melanocytic nevi of trunk; Z71.89 Other specified counseling; L85.3 Xerosis cutis; L57.8 Other skin changes due to chronic exposure to nonionizing radiation | CPT/HCPCS: 17004; 99214 ==

== ENCOUNTER 2022-12-18 08:15 | Oncology outpatient (recurring) (ONCR) | payer MEDICARE, OTHER, SELFPAY ==
[2022-12-11 07:58] VITALS: BP 154/85; PULSE 104; RESP 16; TEMP 37.3; O2SAT 97
[2022-12-11] MEDS: dextrose 5% 250 ML 75 ML IV (08:16)
[2022-12-11] MEDS: acetaminophen 325 mg Tablet 650 MG PO (08:16)
[2022-12-11] MEDS: famotidine 20 mg/2 mL INJ IVP (08:17)
[2022-12-11] MEDS: ondansetron 2 mg/ML SDV 2 mL 8 MG IVP (08:21)
[2022-12-11] MEDS: diphenhydrAMINE 50 mg/mL SDV 1mL 25 MG IVP (08:23)
[2022-12-11 09:33] VITALS: BP 116/63; PULSE 85; RESP 16; TEMP 36.4; O2SAT 95
[2022-12-18 08:07] VITALS: BP 128/81; PULSE 99; RESP 16; TEMP 36.4; O2SAT 96
[2022-12-18 08:24] LABS: Basophils % 0.5 %; Eosinophils # 0.7 10^3/uL (0.0-0.8); Eosinophils % 11.2 %; Hematocrit 34.8 % (37-53); Lymphocytes # 0.8 10^3/uL (0.8-4.8); Lymphocytes % 12.2 %; Mean Corpuscular HGB Conc 33.3 g/dL (30-55); Mean Corpuscular Hemoglobin 34.5 pg (27-33); Mean Corpuscular Volume 103.6 fl (82-101); Mean Platelet Volume 11.9 fL (7.4-10.4); Monocytes # 0.6 10^3/uL (0.2-0.9); Monocytes % 10.3 %; Neutrophils # 3.95 10^3/uL (1.8-7.7); Neutrophils % 64.3 %; Nucleated Red Blood Cells % 0 %; Platelet Count 83 10^3/cmm (157-399); Red Blood Count 3.36 10^6/uL (3.85-5.65); Red Cell Distribution Width 13.6 % (12.1-15.1); White Blood Count 6.14 10^3/uL (3.29-11.43)
[2022-12-18] MEDS: sodium chloride 0.9% 250 ML 75 ML IV (10:26)
[2022-12-18] MEDS: acetaminophen 325 mg Tablet 650 MG PO (10:28)
[2022-12-18] MEDS: diphenhydrAMINE 50 mg/mL SDV 1mL 25 MG IVP (10:29)
[2022-12-18] MEDS: famotidine 20 mg/2 mL INJ IVP (10:31)
[2022-12-18] MEDS: ondansetron 2 mg/ML SDV 2 mL 8 MG IVP (10:36)
[2022-12-18 11:06] VITALS: BP 115/60; PULSE 70; RESP 16; TEMP 36.2; O2SAT 96
[2022-12-18] MEDS: dextrose 5% 250 ML 75 ML IV (13:59)
[2022-12-18 14:50] VITALS: BP 116/68; PULSE 85; RESP 16; TEMP 35.8; O2SAT 97
== END 2022-12-18 23:59 | disposition home or self-care (01) ==
PROVIDERS: PCP Family Medicine; Visit Provider Internal Medicine Medical Oncology
DX: Z51.11 Encounter for antineoplastic chemotherapy (principal); C90.02 Multiple myeloma in relapse
CPT/HCPCS: 85025; 96375; 96413; 96415; 96417; J1200; J1642; J2405; J3490; J7050; J7060; J9047; J9227

== ENCOUNTER 2023-01-01 07:48 | Oncology outpatient (recurring) (ONCR) | payer MEDICARE, OTHER, SELFPAY ==
[2023-01-01] VITALS (7 sets, daily range): BP systolic 119–137; BP diastolic 62–78; PULSE 68–85; RESP 16; TEMP 35.9–36.6; O2SAT 96–98; BMI 24.4
[2023-01-01 08:49] LABS: Basophils # 0.1 10^3/uL (0.0-0.1); Basophils % 0.9 %; Eosinophils # 0.5 10^3/uL (0.0-0.8); Eosinophils % 10.2 %; Lymphocytes % 18.9 %; Mean Corpuscular HGB Conc 33.4 g/dL (30-55); Mean Corpuscular Volume 104.8 fl (82-101); Mean Platelet Volume 10.4 fL (7.4-10.4); Monocytes # 0.7 10^3/uL (0.2-0.9); Monocytes % 12.3 %; Neutrophils # 2.99 10^3/uL (1.8-7.7); Neutrophils % 56.8 %; Nucleated Red Blood Cells % 0 %; Platelet Count 171 10^3/cmm (157-399); Red Blood Count 3.34 10^6/uL (3.85-5.65); White Blood Count 5.28 10^3/uL (3.29-11.43)
[2023-01-01 08:56] LABS: Alanine Aminotransferase 10 U/L (0-41); Albumin Level 3.7 g/dL (3.5-5.2); Alkaline Phosphatase 81 U/L (40-130); Anion Gap 12.8 (5-19); Aspartate Amino Transferase 12 U/L (0-40); Blood Urea Nitrogen 17 mg/dL (8-23); Calcium 9.2 mg/dL (8.5-10.5); Carbon Dioxide 26 mmol/L (22-29); Chloride 103 mmol/L (98-107); Globulin 2.1 g/dL (1.3-4.6); Glucose 108 mg/dL (65-115); Osmolality Calculated 288 mOsm/kg (285-295); Potassium 3.8 mmol/L (3.5-5.1); Sodium 138 mmol/L (136-145); Total Bilirubin 0.4 mg/dL (0.15-1.2); Total Protein 5.8 g/dL (6.6-8.7)
[2023-01-01 09:01] LABS: Immunoglobulin IGA < 50 mg/dL (70-400); Immunoglobulin IGG < 300 mg/dL (700-1600); Immunoglobulin IGM < 25 mg/dL (40-230)
[2023-01-01] MEDS: acetaminophen 325 mg Tablet 650 MG PO (09:59)
[2023-01-01] MEDS: sodium chloride 0.9% 250 ML 75 ML IV (10:00)
[2023-01-01] MEDS: diphenhydrAMINE 50 mg/mL SDV 1mL 25 MG IVP (10:03)
[2023-01-01] MEDS: ondansetron 2 mg/ML SDV 2 mL 8 MG IVP (10:06)
[2023-01-01] MEDS: famotidine 20 mg/2 mL INJ IVP (10:13)
[2023-01-01] MEDS: dextrose 5% 250 ML 75 ML IV (13:16)
[2023-01-02 08:05] LABS: PROTEIN, TOTAL 5.2 g/dL (6.1-8.1)
[2023-01-02 10:38] LABS: KAPPA LIGHT CHAIN, FREE, SERUM 3.1 mg/L (3.3-19.4); KAPPA/LAMBDA LIGHT CHAINS FREE 1.82 (0.26-1.65); LAMBDA LIGHT CHAIN, FREE, SERU 1.7 mg/L (5.7-26.3)
[2023-01-03 08:23] LABS: ALBUMIN 3.3 g/dL (3.8-4.8); ALPHA 1 GLOBULIN 0.4 g/dL (0.2-0.3); ALPHA 2 GLOBULIN 0.7 g/dL (0.5-0.9); BETA 1 GLOBULIN 0.3 g/dL (0.4-0.6); BETA 2 GLOBULIN 0.3 g/dL (0.2-0.5); GAMMA GLOBULIN 0.2 g/dL (0.8-1.7)
== END 2023-01-01 23:59 | disposition home or self-care (01) ==
PROVIDERS: PCP Family Medicine; Visit Provider Internal Medicine Medical Oncology
DX: Z51.11 Encounter for antineoplastic chemotherapy (principal); C90.02 Multiple myeloma in relapse; Z51.81 Encounter for therapeutic drug level monitoring; Z79.899 Other long term (current) drug therapy
CPT/HCPCS: 80053; 82784; 83883; 84155; 84165; 85025; 96367; 96375; 96413; 96415; 99214; J1200; J1642; J2405; J3490; J7050; J7060; J9047; J9227

== ENCOUNTER 2023-01-15 08:15 | Oncology outpatient (recurring) (ONCR) | payer MEDICARE, OTHER, SELFPAY ==
[2023-01-08 08:10] VITALS: BP 173/96; PULSE 91; RESP 16; TEMP 36.8; O2SAT 99
[2023-01-08 08:23] LABS: Basophils % 0.5 %; Eosinophils # 0.4 10^3/uL (0.0-0.8); Hematocrit 33.8 % (37-53); Lymphocytes # 1.6 10^3/uL (0.8-4.8); Mean Corpuscular HGB Conc 33.1 g/dL (30-55); Mean Corpuscular Hemoglobin 34.6 pg (27-33); Mean Corpuscular Volume 104.3 fl (82-101); Mean Platelet Volume 11.5 fL (7.4-10.4); Monocytes # 0.9 10^3/uL (0.2-0.9); Monocytes % 14.7 %; Neutrophils # 3.31 10^3/uL (1.8-7.7); Neutrophils % 53.3 %; Nucleated Red Blood Cells % 0 %; Platelet Count 106 10^3/cmm (157-399); Red Blood Count 3.24 10^6/uL (3.85-5.65); Red Cell Distribution Width 14.2 % (12.1-15.1)
[2023-01-08 08:40] LABS: Alanine Aminotransferase 8 U/L (0-41); Albumin Level 3.5 g/dL (3.5-5.2); Alkaline Phosphatase 74 U/L (40-130); Anion Gap 11.8 (5-19); Aspartate Amino Transferase 14 U/L (0-40); Blood Urea Nitrogen 13 mg/dL (8-23); Calcium 8.9 mg/dL (8.5-10.5); Carbon Dioxide 28 mmol/L (22-29); Chloride 104 mmol/L (98-107); Glucose 101 mg/dL (65-115); Osmolality Calculated 290 mOsm/kg (285-295); Potassium 3.8 mmol/L (3.5-5.1); Sodium 140 mmol/L (136-145); Total Bilirubin 0.5 mg/dL (0.15-1.2); Total Protein 5.5 g/dL (6.6-8.7)
[2023-01-08] MEDS: acetaminophen 325 mg Tablet 650 MG PO (09:18)
[2023-01-08] MEDS: dextrose 5% 250 ML 75 ML IV (09:18)
[2023-01-08] MEDS: diphenhydrAMINE 50 mg/mL SDV 1mL 25 MG IVP (09:21)
[2023-01-08] MEDS: famotidine 20 mg/2 mL INJ IVP (09:23)
[2023-01-08] MEDS: ondansetron 2 mg/ML SDV 2 mL 8 MG IVP (09:25)
[2023-01-08 10:30] VITALS: BP 152/84; PULSE 72; RESP 16; TEMP 36.3; O2SAT 98
[2023-01-15] VITALS (7 sets, daily range): BP systolic 125–158; BP diastolic 74–89; PULSE 66–81; RESP 16–18; TEMP 35.9–36.5; O2SAT 95–98
[2023-01-15 08:11] LABS: Basophils % 0.4 %; Eosinophils # 0.3 10^3/uL (0.0-0.8); Eosinophils % 6.4 %; Hematocrit 33.4 % (37-53); Lymphocytes # 1.3 10^3/uL (0.8-4.8); Lymphocytes % 27.9 %; Mean Corpuscular HGB Conc 32.3 g/dL (30-55); Mean Corpuscular Hemoglobin 34.3 pg (27-33); Mean Platelet Volume 11.9 fL (7.4-10.4); Monocytes # 0.9 10^3/uL (0.2-0.9); Monocytes % 18.1 %; Neutrophils # 2.25 10^3/uL (1.8-7.7); Neutrophils % 46.8 %; Nucleated Red Blood Cells % 0 %; Platelet Count 77 10^3/cmm (157-399); Red Blood Count 3.15 10^6/uL (3.85-5.65); Red Cell Distribution Width 15.1 % (12.1-15.1); White Blood Count 4.81 10^3/uL (3.29-11.43)
[2023-01-15 08:32] LABS: Alanine Aminotransferase 12 U/L (0-41); Albumin Level 3.7 g/dL (3.5-5.2); Alkaline Phosphatase 65 U/L (40-130); Anion Gap 11.7 (5-19); Aspartate Amino Transferase 14 U/L (0-40); Blood Urea Nitrogen 22 mg/dL (8-23); Calcium 8.9 mg/dL (8.5-10.5); Carbon Dioxide 24 mmol/L (22-29); Chloride 107 mmol/L (98-107); Globulin 1.9 g/dL (1.3-4.6); Glucose 96 mg/dL (65-115); Osmolality Calculated 291 mOsm/kg (285-295); Potassium 3.7 mmol/L (3.5-5.1); Sodium 139 mmol/L (136-145); Total Bilirubin 0.6 mg/dL (0.15-1.2); Total Protein 5.6 g/dL (6.6-8.7)
[2023-01-15] MEDS: acetaminophen 325 mg Tablet 650 MG PO (09:13)
[2023-01-15] MEDS: sodium chloride 0.9% 250 ML 75 ML IV (09:14)
[2023-01-15] MEDS: diphenhydrAMINE 50 mg/mL SDV 1mL 25 MG IVP (09:17)
[2023-01-15] MEDS: ondansetron 2 mg/ML SDV 2 mL 8 MG IVP (09:22)
[2023-01-15] MEDS: famotidine 20 mg/2 mL INJ IVP (09:28)
[2023-01-15] MEDS: dextrose 5% 250 ML 75 ML IV (12:31)
== END 2023-01-15 23:59 | disposition home or self-care (01) ==
PROVIDERS: Nurse Practitioner Family; PCP Family Medicine; Visit Provider Internal Medicine Medical Oncology
DX: Z51.11 Encounter for antineoplastic chemotherapy (principal); C90.02 Multiple myeloma in relapse
CPT/HCPCS: 80053; 85025; 96375; 96413; 96415; 96417; J1200; J1642; J2405; J3490; J7050; J7060; J9047; J9227

== ENCOUNTER 2023-01-29 07:45 | Oncology outpatient (recurring) (ONCR) | payer MEDICARE, OTHER, SELFPAY ==
[2023-01-29 08:00] VITALS: BP 147/75; PULSE 98; RESP 16; TEMP 36.2; O2SAT 98
[2023-01-29 08:13] LABS: Basophils % 0.7 %; Eosinophils # 0.3 10^3/uL (0.0-0.8); Eosinophils % 4.9 %; Hematocrit 36.1 % (37-53); Lymphocytes # 1.5 10^3/uL (0.8-4.8); Lymphocytes % 27.2 %; Mean Corpuscular Hemoglobin 34.7 pg (27-33); Mean Corpuscular Volume 105.2 fl (82-101); Mean Platelet Volume 10.4 fL (7.4-10.4); Monocytes # 0.8 10^3/uL (0.2-0.9); Monocytes % 14.1 %; Neutrophils # 2.93 10^3/uL (1.8-7.7); Neutrophils % 52.7 %; Nucleated Red Blood Cells % 0 %; Platelet Count 163 10^3/cmm (157-399); Red Blood Count 3.43 10^6/uL (3.85-5.65); Red Cell Distribution Width 14.9 % (12.1-15.1); White Blood Count 5.55 10^3/uL (3.29-11.43)
[2023-01-29 08:39] LABS: Alanine Aminotransferase 8 U/L (0-41); Albumin Level 3.9 g/dL (3.5-5.2); Alkaline Phosphatase 73 U/L (40-130); Anion Gap 11.7 (5-19); Aspartate Amino Transferase 13 U/L (0-40); Blood Urea Nitrogen 21 mg/dL (8-23); Calcium 9.4 mg/dL (8.5-10.5); Carbon Dioxide 28 mmol/L (22-29); Chloride 103 mmol/L (98-107); Glucose 104 mg/dL (65-115); Osmolality Calculated 291 mOsm/kg (285-295); Potassium 3.7 mmol/L (3.5-5.1); Sodium 139 mmol/L (136-145); Total Bilirubin 0.5 mg/dL (0.15-1.2); Total Protein 5.9 g/dL (6.6-8.7)
[2023-01-29 09:45] LABS: Immunoglobulin IGA < 50 mg/dL (70-400); Immunoglobulin IGG < 300 mg/dL (700-1600); Immunoglobulin IGM < 25 mg/dL (40-230)
[2023-01-29] MEDS: sodium chloride 0.9% 250 ML 75 ML IV (10:22)
[2023-01-29] MEDS: acetaminophen 325 mg Tablet 650 MG PO (10:23)
[2023-01-29] MEDS: diphenhydrAMINE 50 mg/mL SDV 1mL 25 MG IVP (10:24)
[2023-01-29] MEDS: famotidine 20 mg/2 mL INJ IVP (10:26)
[2023-01-29] MEDS: ondansetron 2 mg/ML SDV 2 mL 8 MG IVP (10:27)
[2023-01-29 10:40] VITALS: BMI 25.7
[2023-01-29 11:15] VITALS: BP 129/76; PULSE 77; RESP 17; TEMP 37; O2SAT 96
[2023-01-29 11:45] VITALS: BP 144/82; PULSE 88; RESP 18; TEMP 36.8; O2SAT 98
[2023-01-29 12:15] VITALS: BP 151/74; PULSE 84; RESP 17; TEMP 37; O2SAT 98
[2023-01-29] MEDS: dextrose 5% 250 ML 100 ML IV (13:14)
[2023-01-29] MEDS: CARFILZOMIB IV (13:25)
[2023-01-29] MEDS: DEXTROSE 5% IV (13:25)
[2023-01-29 14:00] VITALS: BP 143/77; PULSE 74; RESP 17; TEMP 36.7; O2SAT 98
[2023-01-29 14:06] VITALS: BP 143/77; PULSE 74; RESP 17; TEMP 36.7; O2SAT 98
[2023-01-30 09:14] LABS: PROTEIN, TOTAL 5.3 g/dL (6.1-8.1)
[2023-01-30 14:43] LABS: KAPPA LIGHT CHAIN, FREE, SERUM 1.9 mg/L (3.3-19.4); LAMBDA LIGHT CHAIN, FREE, SERU 1.9 mg/L (5.7-26.3)
[2023-01-30 16:46] LABS: ALBUMIN 3.5 g/dL (3.8-4.8); ALPHA 1 GLOBULIN 0.3 g/dL (0.2-0.3); ALPHA 2 GLOBULIN 0.6 g/dL (0.5-0.9); BETA 1 GLOBULIN 0.3 g/dL (0.4-0.6); BETA 2 GLOBULIN 0.3 g/dL (0.2-0.5); GAMMA GLOBULIN 0.2 g/dL (0.8-1.7)
== END 2023-01-29 23:59 | disposition home or self-care (01) ==
PROVIDERS: Nurse Practitioner Family; PCP Family Medicine; Visit Provider Internal Medicine Medical Oncology
DX: Z51.11 Encounter for antineoplastic chemotherapy (principal); C90.02 Multiple myeloma in relapse; Z79.899 Other long term (current) drug therapy
CPT/HCPCS: 80053; 82784; 83883; 84155; 84165; 85025; 96375; 96413; 96415; 96417; 99214; J1200; J1642; J2405; J3490; J7050; J7060; J9047; J9227

== ENCOUNTER 2023-02-12 08:15 | Oncology outpatient (recurring) (ONCR) | payer MEDICARE, OTHER, SELFPAY ==
[2023-02-05 07:25] VITALS: BP 159/85; PULSE 86; RESP 16; TEMP 36.2; O2SAT 99
[2023-02-05 07:42] LABS: Basophils % 0.4 %; Eosinophils # 0.2 10^3/uL (0.0-0.8); Eosinophils % 4.4 %; Hematocrit 33.9 % (37-53); Lymphocytes # 1.6 10^3/uL (0.8-4.8); Lymphocytes % 30.1 %; Mean Corpuscular HGB Conc 32.7 g/dL (30-55); Mean Corpuscular Hemoglobin 34.8 pg (27-33); Mean Corpuscular Volume 106.3 fl (82-101); Mean Platelet Volume 11.6 fL (7.4-10.4); Monocytes # 0.9 10^3/uL (0.2-0.9); Monocytes % 16.6 %; Neutrophils # 2.53 10^3/uL (1.8-7.7); Neutrophils % 48.1 %; Nucleated Red Blood Cells % 0 %; Platelet Count 93 10^3/cmm (157-399); Red Blood Count 3.19 10^6/uL (3.85-5.65); Red Cell Distribution Width 14.7 % (12.1-15.1); White Blood Count 5.25 10^3/uL (3.29-11.43)
[2023-02-05 08:08] LABS: Alanine Aminotransferase 12 U/L (0-41); Albumin Level 3.8 g/dL (3.5-5.2); Alkaline Phosphatase 73 U/L (40-130); Aspartate Amino Transferase 16 U/L (0-40); Blood Urea Nitrogen 16 mg/dL (8-23); Calcium 9.1 mg/dL (8.5-10.5); Carbon Dioxide 26 mmol/L (22-29); Chloride 107 mmol/L (98-107); Globulin 1.8 g/dL (1.3-4.6); Glucose 99 mg/dL (65-115); Osmolality Calculated 295 mOsm/kg (285-295); Sodium 142 mmol/L (136-145); Total Bilirubin 0.5 mg/dL (0.15-1.2); Total Protein 5.6 g/dL (6.6-8.7)
[2023-02-05 09:15] VITALS: BP 139/79; PULSE 73; RESP 18; TEMP 36.9; O2SAT 97
[2023-02-05] MEDS: acetaminophen 325 mg Tablet 650 MG PO (09:31)
[2023-02-05] MEDS: dextrose 5% 250 ML 75 ML IV (09:32)
[2023-02-05] MEDS: diphenhydrAMINE 50 mg/mL SDV 1mL 25 MG IVP (09:35)
[2023-02-05] MEDS: ondansetron 2 mg/ML SDV 2 mL 8 MG IVP (09:40)
[2023-02-05] MEDS: famotidine 20 mg/2 mL INJ IVP (09:45)
[2023-02-05] MEDS: CARFILZOMIB IV (09:51)
[2023-02-05] MEDS: DEXTROSE 5% IV (09:51)
[2023-02-05 10:40] VITALS: BP 149/81; PULSE 67; RESP 18; TEMP 36.7; O2SAT 97
[2023-02-12 07:56] VITALS: BP 171/89; PULSE 87; RESP 16; TEMP 36.8; O2SAT 93
[2023-02-12 08:12] LABS: Basophils % 0.5 %; Eosinophils # 0.3 10^3/uL (0.0-0.8); Eosinophils % 4.5 %; Hematocrit 35.9 % (37-53); Lymphocytes # 1.6 10^3/uL (0.8-4.8); Lymphocytes % 28.5 %; Mean Corpuscular HGB Conc 33.4 g/dL (30-55); Mean Corpuscular Hemoglobin 35.1 pg (27-33); Mean Platelet Volume 11.9 fL (7.4-10.4); Monocytes # 0.9 10^3/uL (0.2-0.9); Monocytes % 16.5 %; Neutrophils # 2.77 10^3/uL (1.8-7.7); Neutrophils % 49.8 %; Nucleated Red Blood Cells % 0 %; Platelet Count 84 10^3/cmm (157-399); Red Blood Count 3.42 10^6/uL (3.85-5.65); Red Cell Distribution Width 14.7 % (12.1-15.1); White Blood Count 5.57 10^3/uL (3.29-11.43)
[2023-02-12 08:29] LABS: Alanine Aminotransferase 11 U/L (0-41); Albumin Level 3.8 g/dL (3.5-5.2); Alkaline Phosphatase 68 U/L (40-130); Anion Gap 11.8 (5-19); Aspartate Amino Transferase 15 U/L (0-40); Blood Urea Nitrogen 14 mg/dL (8-23); Calcium 9.6 mg/dL (8.5-10.5); Carbon Dioxide 28 mmol/L (22-29); Chloride 105 mmol/L (98-107); Glucose 102 mg/dL (65-115); Osmolality Calculated 293 mOsm/kg (285-295); Potassium 3.8 mmol/L (3.5-5.1); Sodium 141 mmol/L (136-145); Total Bilirubin 0.5 mg/dL (0.15-1.2); Total Protein 5.8 g/dL (6.6-8.7)
[2023-02-12] MEDS: acetaminophen 325 mg Tablet 650 MG PO (10:12)
[2023-02-12] MEDS: sodium chloride 0.9% 250 ML 75 ML IV (10:13)
[2023-02-12] MEDS: diphenhydrAMINE 50 mg/mL SDV 1mL 25 MG IVP (10:16)
[2023-02-12] MEDS: ondansetron 2 mg/ML SDV 2 mL 8 MG IVP (10:21)
[2023-02-12] MEDS: famotidine 20 mg/2 mL INJ IVP (10:27)
[2023-02-12 10:55] VITALS: BP 166/96; PULSE 71; RESP 17; TEMP 36.4; O2SAT 98
[2023-02-12 11:25] VITALS: BP 149/79; PULSE 85; RESP 17; TEMP 36.6; O2SAT 98
[2023-02-12 11:55] VITALS: BP 157/90; PULSE 76; RESP 16; TEMP 36.1; O2SAT 99
[2023-02-12 12:25] VITALS: BP 143/83; PULSE 77; RESP 16; TEMP 36.3; O2SAT 96
[2023-02-12] MEDS: DEXTROSE 5% IV (13:24)
[2023-02-12] MEDS: dextrose 5% 250 ML 75 ML IV (13:24)
[2023-02-12] MEDS: CARFILZOMIB IV (13:24)
[2023-02-12 14:18] VITALS: BP 180/99; PULSE 75; RESP 18; TEMP 35.8; O2SAT 99
== END 2023-02-12 23:59 | disposition home or self-care (01) ==
PROVIDERS: Nurse Practitioner Family; PCP Family Medicine; Visit Provider Internal Medicine Medical Oncology
DX: Z51.11 Encounter for antineoplastic chemotherapy (principal); C90.02 Multiple myeloma in relapse
CPT/HCPCS: 80053; 85025; 96375; 96413; 96415; 96417; J1200; J1642; J2405; J3490; J7050; J7060; J9047; J9227

== ENCOUNTER → 2023-02-14 07:52 | Outpatient (BNVA) | payer MEDICARE, OTHER, SELFPAY | PROVIDERS: PCP Family Medicine; Visit Provider Dermatology | DX: L57.0 Actinic keratosis (principal) | CPT/HCPCS: 96567 ==

== ENCOUNTER 2023-02-26 08:30 | Oncology outpatient (recurring) (ONCR) | payer MEDICARE, OTHER, SELFPAY ==
[2023-02-19 07:51] VITALS: BP 147/91; PULSE 102; RESP 16; TEMP 36.7; O2SAT 97
[2023-02-19 08:19] LABS: Basophils % 0.5 %; Eosinophils # 0.2 10^3/uL (0.0-0.8); Eosinophils % 3.7 %; Hematocrit 38.8 % (37-53); Lymphocytes # 1.9 10^3/uL (0.8-4.8); Lymphocytes % 32.4 %; Mean Corpuscular HGB Conc 34.3 g/dL (30-55); Mean Corpuscular Hemoglobin 35.1 pg (27-33); Mean Corpuscular Volume 102.4 fl (82-101); Mean Platelet Volume 11.9 fL (7.4-10.4); Monocytes % 16.8 %; Neutrophils # 2.72 10^3/uL (1.8-7.7); Neutrophils % 46.3 %; Nucleated Red Blood Cells % 0 %; Platelet Count 111 10^3/cmm (157-399); Red Blood Count 3.79 10^6/uL (3.85-5.65); Red Cell Distribution Width 14.6 % (12.1-15.1); White Blood Count 5.89 10^3/uL (3.29-11.43)
[2023-02-19 08:28] LABS: Alanine Aminotransferase 12 U/L (0-41); Alkaline Phosphatase 70 U/L (40-130); Anion Gap 13.1 (5-19); Aspartate Amino Transferase 16 U/L (0-40); Blood Urea Nitrogen 15 mg/dL (8-23); Calcium 9.3 mg/dL (8.5-10.5); Carbon Dioxide 25 mmol/L (22-29); Chloride 104 mmol/L (98-107); Glucose 86 mg/dL (65-115); Osmolality Calculated 286 mOsm/kg (285-295); Potassium 4.1 mmol/L (3.5-5.1); Sodium 138 mmol/L (136-145); Total Bilirubin 0.5 mg/dL (0.15-1.2)
[2023-02-26 10:03] LABS: Alanine Aminotransferase 11 U/L (0-41); Albumin Level 3.9 g/dL (3.5-5.2); Alkaline Phosphatase 73 U/L (40-130); Anion Gap 14.7 (5-19); Aspartate Amino Transferase 15 U/L (0-40); Blood Urea Nitrogen 14 mg/dL (8-23); Calcium 9.1 mg/dL (8.5-10.5); Carbon Dioxide 25 mmol/L (22-29); Chloride 104 mmol/L (98-107); Globulin 1.7 g/dL (1.3-4.6); Glucose 109 mg/dL (65-115); Osmolality Calculated 291 mOsm/kg (285-295); Potassium 3.7 mmol/L (3.5-5.1); Sodium 140 mmol/L (136-145); Total Bilirubin 0.4 mg/dL (0.15-1.2); Total Protein 5.6 g/dL (6.6-8.7)
[2023-02-26 10:18] LABS: Basophils % 0.7 %; Eosinophils # 0.2 10^3/uL (0.0-0.8); Eosinophils % 3.6 %; Hematocrit 36.7 % (37-53); Lymphocytes # 1.7 10^3/uL (0.8-4.8); Lymphocytes % 28.4 %; Mean Corpuscular HGB Conc 33.2 g/dL (30-55); Mean Corpuscular Hemoglobin 34.6 pg (27-33); Mean Platelet Volume 11.4 fL (7.4-10.4); Monocytes # 0.7 10^3/uL (0.2-0.9); Monocytes % 11.5 %; Neutrophils # 3.38 10^3/uL (1.8-7.7); Neutrophils % 55.5 %; Nucleated Red Blood Cells % 0 %; Platelet Count 153 10^3/cmm (157-399); Red Blood Count 3.53 10^6/uL (3.85-5.65); Red Cell Distribution Width 14.3 % (12.1-15.1); White Blood Count 6.09 10^3/uL (3.29-11.43)
[2023-02-26] MEDS: sodium chloride 0.9% 250 ML 75 ML IV (10:59)
[2023-02-26] MEDS: acetaminophen 325 mg Tablet 650 MG PO (11:01)
[2023-02-26 11:02] LABS: Immunoglobulin IGA < 50 mg/dL (70-400); Immunoglobulin IGG < 300 mg/dL (700-1600); Immunoglobulin IGM < 25 mg/dL (40-230)
[2023-02-26] MEDS: diphenhydrAMINE 50 mg/mL SDV 1mL 25 MG IVP (11:02)
[2023-02-26] MEDS: famotidine 20 mg/2 mL INJ IVP (11:03)
[2023-02-26] MEDS: ondansetron 2 mg/ML SDV 2 mL 8 MG IVP (11:05)
[2023-02-26 11:25] VITALS: BP 143/75; PULSE 78; RESP 16; TEMP 36.2; O2SAT 98
[2023-02-26 11:55] VITALS: BP 143/75; PULSE 78; RESP 17; TEMP 36.4; O2SAT 99
[2023-02-26 12:25] VITALS: BP 175/84; PULSE 85; RESP 17; TEMP 36.5; O2SAT 99
[2023-02-26 12:55] VITALS: BP 164/90; PULSE 77; RESP 17; TEMP 36.9; O2SAT 98
[2023-02-26] MEDS: dextrose 5% 250 ML 75 ML IV (14:00)
[2023-02-26] MEDS: DEXTROSE 5% IV (14:03)
[2023-02-26] MEDS: CARFILZOMIB IV (14:03)
[2023-02-26 14:44] VITALS: BP 155/82; PULSE 67; RESP 17; TEMP 36.8; O2SAT 97
== END 2023-02-26 23:59 | disposition home or self-care (01) ==
PROVIDERS: Nurse Practitioner Family; PCP Family Medicine; Visit Provider Internal Medicine Medical Oncology
DX: Z51.11 Encounter for antineoplastic chemotherapy (principal); C90.02 Multiple myeloma in relapse; Z53.9 Procedure and treatment not carried out, unspecified reason; Z79.899 Other long term (current) drug therapy
CPT/HCPCS: 36591; 80053; 82784; 85025; 99214; J1200; J1642; J2405; J3490; J7050; J7060; J9047; J9227

== ENCOUNTER → 2023-02-28 07:53 | Outpatient (BNVA) | payer MEDICARE, OTHER, SELFPAY | PROVIDERS: PCP Family Medicine; Visit Provider Dermatology | DX: C90.01 Multiple myeloma in remission (principal); L57.8 Other skin changes due to chronic exposure to nonionizing radiation; L57.0 Actinic keratosis | CPT/HCPCS: 17000; 99213 ==

== ENCOUNTER 2023-03-12 07:45 | Oncology outpatient (recurring) (ONCR) | payer MEDICARE, OTHER, SELFPAY ==
[2023-03-12 08:19] VITALS: BP 145/88; PULSE 89; RESP 16; TEMP 36.9; O2SAT 96
[2023-03-12 08:34] LABS: Basophils % 0.6 %; Eosinophils # 0.2 10^3/uL (0.0-0.8); Eosinophils % 2.3 %; Hematocrit 37.6 % (37-53); Lymphocytes # 1.5 10^3/uL (0.8-4.8); Lymphocytes % 21.3 %; Mean Corpuscular HGB Conc 33.8 g/dL (30-55); Mean Corpuscular Hemoglobin 34.2 pg (27-33); Mean Corpuscular Volume 101.3 fl (82-101); Mean Platelet Volume 10.1 fL (7.4-10.4); Monocytes # 0.7 10^3/uL (0.2-0.9); Monocytes % 10.4 %; Neutrophils # 4.43 10^3/uL (1.8-7.7); Nucleated Red Blood Cells % 0 %; Platelet Count 166 10^3/cmm (157-399); Red Blood Count 3.71 10^6/uL (3.85-5.65); Red Cell Distribution Width 13.8 % (12.1-15.1); White Blood Count 6.82 10^3/uL (3.29-11.43)
[2023-03-12 08:56] LABS: Alanine Aminotransferase 11 U/L (0-41); Albumin Level 3.8 g/dL (3.5-5.2); Alkaline Phosphatase 74 U/L (40-130); Anion Gap 11.8 (5-19); Aspartate Amino Transferase 14 U/L (0-40); Blood Urea Nitrogen 16 mg/dL (8-23); Calcium 9.3 mg/dL (8.5-10.5); Carbon Dioxide 26 mmol/L (22-29); Chloride 105 mmol/L (98-107); Globulin 2.1 g/dL (1.3-4.6); Glucose 107 mg/dL (65-115); Osmolality Calculated 290 mOsm/kg (285-295); Potassium 3.8 mmol/L (3.5-5.1); Sodium 139 mmol/L (136-145); Total Bilirubin 0.5 mg/dL (0.15-1.2); Total Protein 5.9 g/dL (6.6-8.7)
[2023-03-12] MEDS: sodium chloride 0.9% 250 ML 75 ML IV (10:03)
[2023-03-12] MEDS: acetaminophen 325 mg Tablet 650 MG PO (10:03)
[2023-03-12] MEDS: diphenhydrAMINE 50 mg/mL SDV 1mL 25 MG IVP (10:06)
[2023-03-12] MEDS: ondansetron 2 mg/ML SDV 2 mL 8 MG IVP (10:09)
[2023-03-12] MEDS: famotidine 20 mg/2 mL INJ IVP (10:12)
[2023-03-12 10:25] VITALS: BP 149/91; PULSE 80; RESP 16; TEMP 35.9; O2SAT 99
[2023-03-12 10:55] VITALS: BP 136/77; PULSE 71; RESP 16; TEMP 35.9; O2SAT 98
[2023-03-12 11:25] VITALS: BP 143/85; PULSE 77; RESP 16; TEMP 35.7; O2SAT 99
[2023-03-12 11:55] VITALS: BP 121/66; PULSE 81; RESP 16; TEMP 36.3; O2SAT 98
[2023-03-12] MEDS: DEXTROSE 5% IV (13:07)
[2023-03-12] MEDS: CARFILZOMIB IV (13:07)
[2023-03-12] MEDS: dextrose 5% 250 ML 75 ML IV (13:10)
[2023-03-12 13:58] VITALS: BP 145/69; PULSE 80; RESP 17; TEMP 36.2; O2SAT 99
== END 2023-03-12 23:59 | disposition home or self-care (01) ==
LOC: ONCMED 07:45
PROVIDERS: PCP Family Medicine; Visit Provider Internal Medicine Medical Oncology
DX: Z51.11 Encounter for antineoplastic chemotherapy (principal); C90.02 Multiple myeloma in relapse
CPT/HCPCS: 80053; 85025; 96375; 96413; 96415; 96417; J1200; J1642; J2405; J3490; J7050; J7060; J9047; J9227

== ENCOUNTER 2023-03-26 07:51 | Oncology outpatient (recurring) (ONCR) | payer MEDICARE, OTHER, SELFPAY ==
[2023-03-26 08:24] VITALS: BP 151/82; PULSE 87; RESP 16; TEMP 36.7; O2SAT 96
[2023-03-26 08:46] LABS: Basophils % 0.4 %; Eosinophils # 0.2 10^3/uL (0.0-0.8); Hematocrit 36.6 % (37-53); Lymphocytes # 1.9 10^3/uL (0.8-4.8); Lymphocytes % 34.3 %; Mean Corpuscular HGB Conc 33.3 g/dL (30-55); Mean Corpuscular Volume 101.9 fl (82-101); Mean Platelet Volume 10.8 fL (7.4-10.4); Monocytes # 0.7 10^3/uL (0.2-0.9); Monocytes % 12.1 %; Neutrophils # 2.79 10^3/uL (1.8-7.7); Neutrophils % 49.8 %; Nucleated Red Blood Cells % 0 %; Platelet Count 171 10^3/cmm (157-399); Red Blood Count 3.59 10^6/uL (3.85-5.65); Red Cell Distribution Width 13.8 % (12.1-15.1)
[2023-03-26 09:07] LABS: Alanine Aminotransferase 10 U/L (0-41); Albumin Level 3.8 g/dL (3.5-5.2); Alkaline Phosphatase 76 U/L (40-130); Aspartate Amino Transferase 15 U/L (0-40); Blood Urea Nitrogen 15 mg/dL (8-23); Calcium 9.2 mg/dL (8.5-10.5); Carbon Dioxide 25 mmol/L (22-29); Chloride 104 mmol/L (98-107); Globulin 1.8 g/dL (1.3-4.6); Glucose 123 mg/dL (65-115); Osmolality Calculated 292 mOsm/kg (285-295); Sodium 140 mmol/L (136-145); Total Bilirubin 0.5 mg/dL (0.15-1.2); Total Protein 5.6 g/dL (6.6-8.7)
[2023-03-26 09:08] LABS: Immunoglobulin IGA < 50 mg/dL (70-400); Immunoglobulin IGG < 300 mg/dL (700-1600); Immunoglobulin IGM < 25 mg/dL (40-230)
[2023-03-26 09:47] LABS: Anion Gap 14.8 (5-19); Potassium 3.8 mmol/L (3.5-5.1)
[2023-03-26] MEDS: sodium chloride 0.9% 250 ML 75 ML IV (10:12)
[2023-03-26] MEDS: acetaminophen 325 mg Tablet 650 MG PO (10:13)
[2023-03-26] MEDS: famotidine 20 mg/2 mL INJ IVP (10:15)
[2023-03-26] MEDS: diphenhydrAMINE 50 mg/mL SDV 1mL 25 MG IVP (10:15)
[2023-03-26] MEDS: ondansetron 2 mg/ML SDV 2 mL 8 MG IVP (10:16)
[2023-03-26 10:46] VITALS: BP 148/84; PULSE 78; RESP 17; TEMP 36.4; O2SAT 97
[2023-03-26 11:21] VITALS: BP 131/66; PULSE 77; RESP 17; TEMP 36.4; O2SAT 96
[2023-03-26 11:45] VITALS: BP 146/73; PULSE 75; RESP 17; TEMP 36.6; O2SAT 98
[2023-03-26 12:22] VITALS: BP 154/83; PULSE 71; RESP 17; TEMP 36.6; O2SAT 97
[2023-03-26] MEDS: DEXTROSE 5% IV (13:37)
[2023-03-26] MEDS: dextrose 5% 250 ML 75 ML IV (13:37)
[2023-03-26] MEDS: CARFILZOMIB IV (13:37)
[2023-03-26 14:48] VITALS: BP 143/81; PULSE 72; RESP 17; TEMP 35.7; O2SAT 97
[2023-03-27 06:15] LABS: PROTEIN, TOTAL 5.4 g/dL (6.1-8.1)
[2023-03-27 12:50] LABS: KAPPA LIGHT CHAIN, FREE, SERUM 3.2 mg/L (3.3-19.4); LAMBDA LIGHT CHAIN, FREE, SERU 1.6 mg/L (5.7-26.3)
[2023-03-28 08:59] LABS: ALBUMIN 3.6 g/dL (3.8-4.8); ALPHA 1 GLOBULIN 0.4 g/dL (0.2-0.3); ALPHA 2 GLOBULIN 0.6 g/dL (0.5-0.9); BETA 1 GLOBULIN 0.4 g/dL (0.4-0.6); BETA 2 GLOBULIN 0.4 g/dL (0.2-0.5); GAMMA GLOBULIN 0.1 g/dL (0.8-1.7)
== END 2023-03-26 23:59 | disposition home or self-care (01) ==
PROVIDERS: PCP Family Medicine; Visit Provider Internal Medicine Medical Oncology
DX: Z51.11 Encounter for antineoplastic chemotherapy (principal); C90.02 Multiple myeloma in relapse; Z53.9 Procedure and treatment not carried out, unspecified reason; Z79.899 Other long term (current) drug therapy
CPT/HCPCS: 80053; 82784; 83883; 84155; 84165; 85025; 96375; 96376; 96413; 96415; 96417; 99214; J1200; J1642; J2405; J3490; J7050; J7060; J9047; J9227

== ENCOUNTER → 2023-04-03 08:12 | Outpatient (BNVA) | payer MEDICARE, OTHER, SELFPAY | PROVIDERS: PCP Family Medicine; Visit Provider Nurse Practitioner Family | DX: L57.0 Actinic keratosis (principal); C90.01 Multiple myeloma in remission; L82.1 Other seborrheic keratosis; L81.4 Other melanin hyperpigmentation; D22.5 Melanocytic nevi of trunk; L85.3 Xerosis cutis; L57.8 Other skin changes due to chronic exposure to nonionizing radiation | CPT/HCPCS: 17004; 99213 ==

== ENCOUNTER 2023-04-09 07:43 | Oncology outpatient (recurring) (ONCR) | payer MEDICARE, OTHER, SELFPAY ==
[2023-04-09 08:05] VITALS: BP 158/90; PULSE 92; RESP 16; TEMP 36.9; O2SAT 97
[2023-04-09 08:21] LABS: Basophils % 0.6 %; Eosinophils # 0.2 10^3/uL (0.0-0.8); Eosinophils % 3.4 %; Hematocrit 35.4 % (37-53); Lymphocytes # 1.8 10^3/uL (0.8-4.8); Mean Corpuscular HGB Conc 33.9 g/dL (30-55); Mean Corpuscular Hemoglobin 34.8 pg (27-33); Mean Corpuscular Volume 102.6 fl (82-101); Mean Platelet Volume 10.6 fL (7.4-10.4); Monocytes # 0.5 10^3/uL (0.2-0.9); Monocytes % 9.9 %; Neutrophils # 2.75 10^3/uL (1.8-7.7); Neutrophils % 51.5 %; Nucleated Red Blood Cells % 0 %; Platelet Count 159 10^3/cmm (157-399); Red Blood Count 3.45 10^6/uL (3.85-5.65); Red Cell Distribution Width 13.5 % (12.1-15.1); White Blood Count 5.33 10^3/uL (3.29-11.43)
[2023-04-09 08:33] LABS: Alanine Aminotransferase 10 U/L (0-41); Albumin Level 3.7 g/dL (3.5-5.2); Alkaline Phosphatase 77 U/L (40-130); Anion Gap 12.9 (5-19); Aspartate Amino Transferase 15 U/L (0-40); Blood Urea Nitrogen 13 mg/dL (8-23); Calcium 9.4 mg/dL (8.5-10.5); Carbon Dioxide 27 mmol/L (22-29); Chloride 106 mmol/L (98-107); Globulin 2.2 g/dL (1.3-4.6); Glucose 92 mg/dL (65-115); Osmolality Calculated 294 mOsm/kg (285-295); Potassium 3.9 mmol/L (3.5-5.1); Sodium 142 mmol/L (136-145); Total Bilirubin 0.6 mg/dL (0.15-1.2); Total Protein 5.9 g/dL (6.6-8.7)
[2023-04-09] MEDS: sodium chloride 0.9% 250 ML 75 ML IV (09:34)
[2023-04-09] MEDS: acetaminophen 325 mg Tablet 650 MG PO (09:34)
[2023-04-09] MEDS: famotidine 20 mg/2 mL INJ IVP (09:36)
[2023-04-09] MEDS: ondansetron 2 mg/ML SDV 2 mL 8 MG IVP (09:37)
[2023-04-09] MEDS: diphenhydrAMINE 50 mg/mL SDV 1mL 25 MG IVP (09:38)
[2023-04-09 10:00] VITALS: BP 137/79; PULSE 75; RESP 17; TEMP 36.7; O2SAT 97
[2023-04-09 10:30] VITALS: BP 116/65; PULSE 76; RESP 16; TEMP 36.6; O2SAT 96
[2023-04-09 11:00] VITALS: BP 138/72; PULSE 72; RESP 16; TEMP 36.9; O2SAT 97
[2023-04-09 11:30] VITALS: BP 144/76; PULSE 78; RESP 17; TEMP 36.6; O2SAT 97
[2023-04-09] MEDS: CARFILZOMIB IV (12:23)
[2023-04-09] MEDS: DEXTROSE 5% IV (12:23)
[2023-04-09] MEDS: dextrose 5% 250 ML 100 ML IV (12:25)
[2023-04-09 13:08] VITALS: BP 161/80; PULSE 66; RESP 17; TEMP 36.7; O2SAT 97
== END 2023-04-09 23:59 | disposition home or self-care (01) ==
LOC: ONCMED 07:45
PROVIDERS: Nurse Practitioner Family; PCP Family Medicine; Visit Provider Internal Medicine Medical Oncology
DX: Z51.11 Encounter for antineoplastic chemotherapy (principal); C90.02 Multiple myeloma in relapse
CPT/HCPCS: 80053; 85025; 96375; 96413; 96415; 96417; J1200; J1642; J2405; J3490; J7050; J7060; J9047; J9227

== ENCOUNTER 2023-04-24 08:00 | Oncology outpatient (recurring) (ONCR) | payer MEDICARE, OTHER, SELFPAY ==
[2023-04-23 08:07] VITALS: BP 164/91; PULSE 87; O2SAT 99
[2023-04-23 08:18] LABS: Basophils % 0.5 %; Eosinophils # 0.2 10^3/uL (0.0-0.8); Eosinophils % 4.1 %; Hematocrit 35.3 % (37-53); Lymphocytes # 1.8 10^3/uL (0.8-4.8); Lymphocytes % 31.4 %; Mean Corpuscular HGB Conc 33.4 g/dL (30-55); Mean Corpuscular Hemoglobin 34.5 pg (27-33); Mean Corpuscular Volume 103.2 fl (82-101); Mean Platelet Volume 10.3 fL (7.4-10.4); Monocytes # 0.7 10^3/uL (0.2-0.9); Monocytes % 11.8 %; Neutrophils # 2.89 10^3/uL (1.8-7.7); Neutrophils % 51.8 %; Nucleated Red Blood Cells % 0 %; Platelet Count 158 10^3/cmm (157-399); Red Blood Count 3.42 10^6/uL (3.85-5.65); Red Cell Distribution Width 14.3 % (12.1-15.1); White Blood Count 5.58 10^3/uL (3.29-11.43)
[2023-04-23 08:36] LABS: Alanine Aminotransferase 9 U/L (0-41); Albumin Level 3.8 g/dL (3.5-5.2); Alkaline Phosphatase 70 U/L (40-130); Anion Gap 12.1 (5-19); Aspartate Amino Transferase 15 U/L (0-40); Blood Urea Nitrogen 15 mg/dL (8-23); Calcium 9.1 mg/dL (8.5-10.5); Carbon Dioxide 27 mmol/L (22-29); Chloride 104 mmol/L (98-107); Globulin 2.1 g/dL (1.3-4.6); Glucose 96 mg/dL (65-115); Osmolality Calculated 289 mOsm/kg (285-295); Potassium 4.1 mmol/L (3.5-5.1); Sodium 139 mmol/L (136-145); Total Bilirubin 0.6 mg/dL (0.15-1.2); Total Protein 5.9 g/dL (6.6-8.7)
[2023-04-23 08:39] LABS: Immunoglobulin IGA < 50 mg/dL (70-400); Immunoglobulin IGG < 300 mg/dL (700-1600); Immunoglobulin IGM < 25 mg/dL (40-230)
[2023-04-24 08:10] LABS: PROTEIN, TOTAL 5.5 g/dL (6.1-8.1)
[2023-04-24] MEDS: sodium chloride 0.9% 250 ML 75 ML IV (08:48)
[2023-04-24] MEDS: acetaminophen 325 mg Tablet 650 MG PO (08:48)
[2023-04-24] MEDS: famotidine 20 mg/2 mL INJ IVP (08:52)
[2023-04-24] MEDS: ondansetron 2 mg/ML SDV 2 mL 8 MG IVP (08:52)
[2023-04-24] MEDS: diphenhydrAMINE 50 mg/mL SDV 1mL 25 MG IVP (08:56)
[2023-04-24 09:30] VITALS: BP 183/80; PULSE 80; RESP 18; TEMP 36.7; O2SAT 100
[2023-04-24 10:01] VITALS: BP 151/75; PULSE 80; RESP 17; TEMP 36.6; O2SAT 98
[2023-04-24 10:31] VITALS: BP 144/64; PULSE 73; RESP 17; TEMP 36; O2SAT 98
[2023-04-24 11:05] VITALS: BP 158/82; PULSE 69; RESP 17; TEMP 36.6; O2SAT 99
[2023-04-24 11:55] VITALS: BP 168/82; PULSE 60; RESP 16; TEMP 36.2; O2SAT 100
[2023-04-24] MEDS: dextrose 5% 250 ML 75 ML IV (12:10)
[2023-04-24] MEDS: DEXTROSE 5% IV (12:12)
[2023-04-24] MEDS: CARFILZOMIB IV (12:12)
[2023-04-24 13:15] VITALS: BP 170/81; PULSE 64; RESP 17; TEMP 36.1; O2SAT 99
[2023-04-24 14:49] LABS: KAPPA/LAMBDA LIGHT CHAINS FREE 1.61 (0.26-1.65); LAMBDA LIGHT CHAIN, FREE, SERU 3.1 mg/L (5.7-26.3)
[2023-04-24 16:04] LABS: ABNORMAL PROTEIN BAND 1 0.1 g/dL (NONE DETECTED); ALBUMIN 3.7 g/dL (3.8-4.8); ALPHA 1 GLOBULIN 0.4 g/dL (0.2-0.3); ALPHA 2 GLOBULIN 0.6 g/dL (0.5-0.9); BETA 1 GLOBULIN 0.4 g/dL (0.4-0.6); BETA 2 GLOBULIN 0.3 g/dL (0.2-0.5); GAMMA GLOBULIN 0.2 g/dL (0.8-1.7)
== END 2023-04-24 23:59 | disposition home or self-care (01) ==
PROVIDERS: Nurse Practitioner Family; PCP Family Medicine; Visit Provider Internal Medicine Medical Oncology
DX: Z51.11 Encounter for antineoplastic chemotherapy (principal); C90.02 Multiple myeloma in relapse; Z53.9 Procedure and treatment not carried out, unspecified reason
CPT/HCPCS: 80053; 82784; 83883; 84155; 84165; 85025; 96375; 96413; 96415; 96417; 99214; J1200; J1642; J2405; J3490; J7050; J7060; J9047; J9227

== ENCOUNTER 2023-05-06 07:43 | Oncology outpatient (recurring) (ONCR) | payer MEDICARE, OTHER, SELFPAY ==
[2023-05-06 08:10] LABS: Basophils % 0.5 %; Eosinophils # 0.2 10^3/uL (0.0-0.8); Eosinophils % 3.2 %; Hematocrit 33.3 % (37-53); Lymphocytes # 1.7 10^3/uL (0.8-4.8); Lymphocytes % 29.9 %; Mean Corpuscular HGB Conc 33.3 g/dL (30-55); Mean Corpuscular Hemoglobin 34.8 pg (27-33); Mean Corpuscular Volume 104.4 fl (82-101); Mean Platelet Volume 10.8 fL (7.4-10.4); Monocytes # 0.5 10^3/uL (0.2-0.9); Monocytes % 8.6 %; Neutrophils # 3.22 10^3/uL (1.8-7.7); Neutrophils % 57.6 %; Nucleated Red Blood Cells % 0 %; Platelet Count 142 10^3/cmm (157-399); Red Blood Count 3.19 10^6/uL (3.85-5.65); Red Cell Distribution Width 14.7 % (12.1-15.1); White Blood Count 5.59 10^3/uL (3.29-11.43)
[2023-05-06 08:24] LABS: Alanine Aminotransferase 8 U/L (0-41); Albumin Level 3.6 g/dL (3.5-5.2); Alkaline Phosphatase 67 U/L (40-130); Anion Gap 11.6 (5-19); Aspartate Amino Transferase 13 U/L (0-40); Blood Urea Nitrogen 13 mg/dL (8-23); Calcium 8.7 mg/dL (8.5-10.5); Carbon Dioxide 26 mmol/L (22-29); Chloride 106 mmol/L (98-107); Globulin 1.8 g/dL (1.3-4.6); Glucose 113 mg/dL (65-115); Osmolality Calculated 291 mOsm/kg (285-295); Potassium 3.6 mmol/L (3.5-5.1); Sodium 140 mmol/L (136-145); Total Bilirubin 0.6 mg/dL (0.15-1.2); Total Protein 5.4 g/dL (6.6-8.7)
[2023-05-06] MEDS: sodium chloride 0.9% 250 ML 75 ML IV (09:40)
[2023-05-06] MEDS: acetaminophen 325 mg Tablet 650 MG PO (09:43)
[2023-05-06] MEDS: diphenhydrAMINE 50 mg/mL SDV 1mL 25 MG IVP (09:44)
[2023-05-06] MEDS: ondansetron 2 mg/ML SDV 2 mL 8 MG IVP (09:49)
[2023-05-06] MEDS: famotidine 20 mg/2 mL INJ IVP (09:54)
[2023-05-06 10:30] VITALS: BP 165/92; PULSE 62; RESP 17; TEMP 35.7; O2SAT 98
[2023-05-06 11:00] VITALS: BP 154/88; PULSE 64; RESP 17; TEMP 35.9; O2SAT 97
[2023-05-06 11:30] VITALS: BP 165/82; PULSE 63; RESP 17; TEMP 35.9; O2SAT 97
[2023-05-06 12:00] VITALS: BP 159/81; PULSE 62; RESP 17; TEMP 35.6; O2SAT 97
[2023-05-06 13:01] VITALS: BP 167/74; PULSE 71; RESP 17; TEMP 35.6; O2SAT 98
[2023-05-06] MEDS: dextrose 5% 250 ML 75 ML IV (13:07)
[2023-05-06] MEDS: CARFILZOMIB IV (13:11)
[2023-05-06] MEDS: DEXTROSE 5% IV (13:11)
[2023-05-06 14:00] VITALS: BP 169/75; PULSE 70; RESP 17; TEMP 36.3; O2SAT 99
== END 2023-05-06 23:59 | disposition home or self-care (01) ==
LOC: ONCMED 07:43
PROVIDERS: PCP Family Medicine; Visit Provider Internal Medicine Medical Oncology
DX: Z51.11 Encounter for antineoplastic chemotherapy (principal); C90.02 Multiple myeloma in relapse; Z53.9 Procedure and treatment not carried out, unspecified reason; Z79.899 Other long term (current) drug therapy
CPT/HCPCS: 80053; 85025; 96367; 96409; 96413; 96415; 96417; J1200; J1642; J2405; J3490; J7050; J7060; J9047; J9227

== ENCOUNTER 2023-05-20 07:53 | Oncology outpatient (recurring) (ONCR) | payer MEDICARE, OTHER, SELFPAY ==
[2023-05-20 08:35] LABS: Basophils % 0.7 %; Eosinophils # 0.3 10^3/uL (0.0-0.8); Lymphocytes # 2.2 10^3/uL (0.8-4.8); Lymphocytes % 39.9 %; Mean Corpuscular HGB Conc 34.1 g/dL (30-55); Mean Corpuscular Hemoglobin 35.2 pg (27-33); Mean Corpuscular Volume 103.4 fl (82-101); Mean Platelet Volume 10.4 fL (7.4-10.4); Monocytes # 0.7 10^3/uL (0.2-0.9); Monocytes % 11.7 %; Neutrophils # 2.37 10^3/uL (1.8-7.7); Neutrophils % 42.5 %; Nucleated Red Blood Cells % 0 %; Platelet Count 172 10^3/cmm (157-399); Red Blood Count 3.58 10^6/uL (3.85-5.65); Red Cell Distribution Width 14.3 % (12.1-15.1); White Blood Count 5.57 10^3/uL (3.29-11.43)
[2023-05-20 09:06] LABS: Alanine Aminotransferase 9 U/L (0-41); Albumin Level 3.9 g/dL (3.5-5.2); Alkaline Phosphatase 68 U/L (40-130); Anion Gap 12.6 (5-19); Aspartate Amino Transferase 14 U/L (0-40); Blood Urea Nitrogen 14 mg/dL (8-23); Calcium 9.1 mg/dL (8.5-10.5); Carbon Dioxide 26 mmol/L (22-29); Chloride 104 mmol/L (98-107); Glucose 108 mg/dL (65-115); Osmolality Calculated 289 mOsm/kg (285-295); Potassium 3.6 mmol/L (3.5-5.1); Sodium 139 mmol/L (136-145); Total Bilirubin 0.5 mg/dL (0.15-1.2); Total Protein 5.9 g/dL (6.6-8.7)
[2023-05-20] MEDS: acetaminophen 325 mg Tablet 650 MG PO (10:47)
[2023-05-20] MEDS: sodium chloride 0.9% 250 ML 75 ML IV (10:49)
[2023-05-20] MEDS: diphenhydrAMINE 50 mg/mL SDV 1mL 25 MG IVP (10:54)
[2023-05-20] MEDS: ondansetron 2 mg/ML SDV 2 mL 8 MG IVP (10:58)
[2023-05-20] MEDS: famotidine 20 mg/2 mL INJ IVP (11:03)
[2023-05-20 11:17] VITALS: BP 160/88; PULSE 71; RESP 17; TEMP 35.9; O2SAT 96
[2023-05-20] MEDS: SODIUM CHLORIDE 0.9% IV (11:17)
[2023-05-20] MEDS: [UNRECOGNIZED DRUG - OTHER] IV (11:17)
[2023-05-20 11:38] LABS: Immunoglobulin IGA < 50 mg/dL (70-400); Immunoglobulin IGG < 300 mg/dL (700-1600); Immunoglobulin IGM < 25 mg/dL (40-230)
[2023-05-20 11:47] VITALS: BP 173/78; PULSE 80; RESP 17; TEMP 35.8; O2SAT 99
[2023-05-20 12:17] VITALS: BP 158/78; PULSE 82; RESP 16; TEMP 35.7; O2SAT 96
[2023-05-20 12:47] VITALS: BP 136/77; PULSE 73; RESP 16; TEMP 35.9; O2SAT 98
[2023-05-20 13:41] VITALS: BP 159/74; PULSE 72; RESP 16; TEMP 35.7; O2SAT 98
[2023-05-20] MEDS: dextrose 5% 250 ML 50 ML IV (13:50)
[2023-05-20] MEDS: DEXTROSE 5% IV (14:14)
[2023-05-20] MEDS: CARFILZOMIB IV (14:14)
[2023-05-20 15:00] VITALS: BP 156/78; PULSE 66; RESP 16; TEMP 35.7; O2SAT 99
[2023-05-21 11:14] LABS: PROTEIN, TOTAL 5.6 g/dL (6.1-8.1)
[2023-05-21 14:20] LABS: KAPPA LIGHT CHAIN, FREE, SERUM 1.4 mg/L (3.3-19.4); KAPPA/LAMBDA LIGHT CHAINS FREE 0.21 (0.26-1.65); LAMBDA LIGHT CHAIN, FREE, SERU 6.6 mg/L (5.7-26.3)
[2023-05-22 09:19] LABS: ABNORMAL PROTEIN BAND 1 0.1 g/dL (NONE DETECTED); ALBUMIN 3.8 g/dL (3.8-4.8); ALPHA 1 GLOBULIN 0.3 g/dL (0.2-0.3); ALPHA 2 GLOBULIN 0.7 g/dL (0.5-0.9); BETA 1 GLOBULIN 0.3 g/dL (0.4-0.6); BETA 2 GLOBULIN 0.3 g/dL (0.2-0.5); GAMMA GLOBULIN 0.2 g/dL (0.8-1.7)
== END 2023-05-20 23:59 | disposition home or self-care (01) ==
LOC: ONCMED 07:54
PROVIDERS: PCP Family Medicine; Visit Provider Internal Medicine Medical Oncology
DX: C90.02 Multiple myeloma in relapse; Z79.899 Other long term (current) drug therapy; Z51.11 Encounter for antineoplastic chemotherapy; Z51.12 Encounter for antineoplastic immunotherapy; R07.9 Chest pain, unspecified
CPT/HCPCS: 80053; 82784; 83883; 84155; 84165; 85025; 96375; 96413; 96415; 96417; 99214; A4222; J1200; J1642; J2405; J3490; J7050; J7060; J9047; J9227

== ENCOUNTER 2023-06-03 07:33 | Oncology outpatient (recurring) (ONCR) | payer MEDICARE, OTHER, SELFPAY ==
[2023-06-03 08:32] LABS: Eosinophils # 0.2 10^3/uL (0.0-0.8); Eosinophils % 4.9 %; Lymphocytes # 1.4 10^3/uL (0.8-4.8); Mean Corpuscular HGB Conc 33.9 g/dL (30-55); Mean Corpuscular Hemoglobin 34.8 pg (27-33); Mean Corpuscular Volume 102.6 fl (82-101); Mean Platelet Volume 10.8 fL (7.4-10.4); Monocytes # 0.5 10^3/uL (0.2-0.9); Monocytes % 12.5 %; Neutrophils # 1.98 10^3/uL (1.8-7.7); Neutrophils % 48.4 %; Nucleated Red Blood Cells % 0 %; Platelet Count 141 10^3/cmm (157-399); Red Blood Count 3.51 10^6/uL (3.85-5.65); Red Cell Distribution Width 14.3 % (12.1-15.1); White Blood Count 4.09 10^3/uL (3.29-11.43)
[2023-06-03 09:05] LABS: Alanine Aminotransferase 11 U/L (0-41); Albumin Level 3.8 g/dL (3.5-5.2); Alkaline Phosphatase 63 U/L (40-130); Anion Gap 10.9 (5-19); Aspartate Amino Transferase 14 U/L (0-40); Blood Urea Nitrogen 16 mg/dL (8-23); Calcium 8.8 mg/dL (8.5-10.5); Carbon Dioxide 26 mmol/L (22-29); Chloride 105 mmol/L (98-107); Globulin 1.7 g/dL (1.3-4.6); Glucose 102 mg/dL (65-115); Osmolality Calculated 287 mOsm/kg (285-295); Potassium 3.9 mmol/L (3.5-5.1); Sodium 138 mmol/L (136-145); Total Bilirubin 0.4 mg/dL (0.15-1.2); Total Protein 5.5 g/dL (6.6-8.7)
[2023-06-03] MEDS: sodium chloride 0.9% 250 ML 75 ML IV (09:36)
[2023-06-03] MEDS: diphenhydrAMINE 50 mg/mL SDV 1mL 25 MG IVP (09:37)
[2023-06-03] MEDS: acetaminophen 325 mg Tablet 650 MG PO (09:37)
[2023-06-03] MEDS: famotidine 20 mg/2 mL INJ IVP (09:40)
[2023-06-03] MEDS: ondansetron 2 mg/ML SDV 2 mL 8 MG IVP (09:41)
[2023-06-03] MEDS: SODIUM CHLORIDE 0.9% IV (10:03)
[2023-06-03] MEDS: [UNRECOGNIZED DRUG - OTHER] IV (10:03)
[2023-06-03 10:05] VITALS: BP 135/79; PULSE 63; RESP 16; TEMP 36.4; O2SAT 99
[2023-06-03 10:35] VITALS: BP 137/77; PULSE 64; RESP 16; TEMP 35.9; O2SAT 98
[2023-06-03 11:05] VITALS: BP 133/69; PULSE 72; RESP 16; TEMP 36.2; O2SAT 96
[2023-06-03 11:35] VITALS: BP 163/71; PULSE 73; RESP 16; TEMP 35.8; O2SAT 96
[2023-06-03] MEDS: dextrose 5% 250 ML 75 ML IV (12:29)
[2023-06-03] MEDS: DEXTROSE 5% IV (12:29)
[2023-06-03] MEDS: CARFILZOMIB IV (12:29)
[2023-06-03 13:17] VITALS: BP 135/79; PULSE 68; RESP 16; TEMP 36.6; O2SAT 98
== END 2023-06-03 23:59 | disposition home or self-care (01) ==
LOC: ONCMED 07:33
PROVIDERS: PCP Family Medicine; Visit Provider Internal Medicine Medical Oncology
DX: Z51.11 Encounter for antineoplastic chemotherapy (principal); C90.02 Multiple myeloma in relapse
CPT/HCPCS: 80053; 85025; 96375; 96413; 96415; 96417; A4222; J1200; J1642; J2405; J3490; J7050; J7060; J9047; J9227

== ENCOUNTER 2023-06-17 07:46 | Oncology outpatient (recurring) (ONCR) | payer MEDICARE, OTHER, SELFPAY ==
[2023-06-17 08:28] LABS: Basophils % 0.8 %; Eosinophils # 0.2 10^3/uL (0.0-0.8); Hematocrit 38.7 % (37-53); Lymphocytes # 1.7 10^3/uL (0.8-4.8); Lymphocytes % 36.2 %; Mean Corpuscular HGB Conc 33.6 g/dL (30-55); Mean Corpuscular Hemoglobin 34.7 pg (27-33); Mean Corpuscular Volume 103.2 fl (82-101); Mean Platelet Volume 10.8 fL (7.4-10.4); Monocytes # 0.7 10^3/uL (0.2-0.9); Monocytes % 14.7 %; Neutrophils # 2.08 10^3/uL (1.8-7.7); Neutrophils % 43.9 %; Nucleated Red Blood Cells % 0 %; Platelet Count 173 10^3/cmm (157-399); Red Blood Count 3.75 10^6/uL (3.85-5.65); White Blood Count 4.75 10^3/uL (3.29-11.43)
[2023-06-17 08:39] LABS: Alanine Aminotransferase 9 U/L (0-41); Albumin Level 3.9 g/dL (3.5-5.2); Alkaline Phosphatase 71 U/L (40-130); Anion Gap 12.6 (5-19); Aspartate Amino Transferase 13 U/L (0-40); Blood Urea Nitrogen 19 mg/dL (8-23); Calcium 9.3 mg/dL (8.5-10.5); Carbon Dioxide 25 mmol/L (22-29); Chloride 103 mmol/L (98-107); Globulin 1.7 g/dL (1.3-4.6); Glucose 92 mg/dL (65-115); Osmolality Calculated 286 mOsm/kg (285-295); Potassium 3.6 mmol/L (3.5-5.1); Sodium 137 mmol/L (136-145); Total Bilirubin 0.4 mg/dL (0.15-1.2); Total Protein 5.6 g/dL (6.6-8.7)
[2023-06-17] MEDS: diphenhydrAMINE 50 mg/mL SDV 1mL 25 MG IVP (09:49)
[2023-06-17] MEDS: sodium chloride 0.9% 250 ML 75 ML IV (09:49)
[2023-06-17] MEDS: acetaminophen 325 mg Tablet 650 MG PO (09:49)
[2023-06-17] MEDS: famotidine 20 mg/2 mL INJ IVP (09:52)
[2023-06-17] MEDS: ondansetron 2 mg/ML SDV 2 mL 8 MG IVP (09:53)
[2023-06-17 10:20] VITALS: BP 160/85; PULSE 72; RESP 16; TEMP 36.1; O2SAT 96
[2023-06-17] MEDS: SODIUM CHLORIDE 0.9% IV (10:20)
[2023-06-17] MEDS: [UNRECOGNIZED DRUG - OTHER] IV (10:20)
[2023-06-17 10:50] VITALS: BP 152/78; PULSE 79; RESP 16; TEMP 36.4; O2SAT 96
[2023-06-17 11:20] VITALS: BP 151/81; PULSE 71; RESP 16; TEMP 35.7; O2SAT 97
[2023-06-17 11:50] VITALS: BP 135/78; PULSE 67; RESP 16; TEMP 35.9; O2SAT 98
[2023-06-17] MEDS: dextrose 5% 250 ML 75 ML IV (12:59)
[2023-06-17] MEDS: CARFILZOMIB IV (13:00)
[2023-06-17] MEDS: DEXTROSE 5% IV (13:00)
[2023-06-17 15:38] LABS: Immunoglobulin IGA < 50 mg/dL (70-400); Immunoglobulin IGG < 300 mg/dL (700-1600); Immunoglobulin IGM < 25 mg/dL (40-230)
[2023-06-18 11:33] LABS: PROTEIN, TOTAL 5.5 g/dL (6.1-8.1)
[2023-06-18 11:49] LABS: KAPPA LIGHT CHAIN, FREE, SERUM 7.4 mg/L (3.3-19.4); KAPPA/LAMBDA LIGHT CHAINS FREE 3.89 (0.26-1.65); LAMBDA LIGHT CHAIN, FREE, SERU 1.9 mg/L (5.7-26.3)
[2023-06-19 08:49] LABS: ABNORMAL PROTEIN BAND 1 0.1 g/dL (NONE DETECTED); ALBUMIN 3.8 g/dL (3.8-4.8); ALPHA 1 GLOBULIN 0.3 g/dL (0.2-0.3); ALPHA 2 GLOBULIN 0.6 g/dL (0.5-0.9); BETA 1 GLOBULIN 0.4 g/dL (0.4-0.6); BETA 2 GLOBULIN 0.3 g/dL (0.2-0.5); GAMMA GLOBULIN 0.2 g/dL (0.8-1.7)
== END 2023-06-17 23:59 | disposition home or self-care (01) ==
PROVIDERS: PCP Family Medicine; Visit Provider Internal Medicine Medical Oncology
DX: Z51.11 Encounter for antineoplastic chemotherapy (principal); C90.02 Multiple myeloma in relapse
CPT/HCPCS: 80053; 82784; 83883; 84155; 84165; 85025; 86334; 96375; 96413; 96415; 96417; 99214; J1200; J1642; J2405; J3490; J7050; J7060; J9047; J9227

== ENCOUNTER → 2023-06-19 13:22 | Outpatient (BNVA) | payer MEDICARE, OTHER, SELFPAY | PROVIDERS: PCP Family Medicine; Visit Provider Dermatology | DX: L57.0 Actinic keratosis (principal); C90.00 Multiple myeloma not having achieved remission; L82.1 Other seborrheic keratosis; L81.4 Other melanin hyperpigmentation | CPT/HCPCS: 17004; 99213 ==

== ENCOUNTER 2023-07-01 07:45 | Oncology outpatient (recurring) (ONCR) | payer MEDICARE, OTHER, SELFPAY ==
[2023-07-01 08:23] LABS: Basophils % 0.3 %; Eosinophils # 0.2 10^3/uL (0.0-0.8); Eosinophils % 2.6 %; Hematocrit 35.8 % (37-53); Lymphocytes # 1.4 10^3/uL (0.8-4.8); Mean Corpuscular HGB Conc 34.1 g/dL (30-55); Mean Corpuscular Hemoglobin 34.7 pg (27-33); Mean Corpuscular Volume 101.7 fl (82-101); Mean Platelet Volume 10.8 fL (7.4-10.4); Monocytes # 0.6 10^3/uL (0.2-0.9); Monocytes % 10.3 %; Neutrophils # 3.53 10^3/uL (1.8-7.7); Neutrophils % 61.8 %; Nucleated Red Blood Cells % 0 %; Platelet Count 147 10^3/cmm (157-399); Red Blood Count 3.52 10^6/uL (3.85-5.65); Red Cell Distribution Width 13.6 % (12.1-15.1); White Blood Count 5.72 10^3/uL (3.29-11.43)
[2023-07-01 08:37] LABS: Alanine Aminotransferase 9 U/L (0-41); Albumin Level 3.7 g/dL (3.5-5.2); Alkaline Phosphatase 71 U/L (40-130); Anion Gap 13.9 (5-19); Aspartate Amino Transferase 15 U/L (0-40); Blood Urea Nitrogen 21 mg/dL (8-23); Calcium 9.1 mg/dL (8.5-10.5); Carbon Dioxide 25 mmol/L (22-29); Chloride 108 mmol/L (98-107); Globulin 1.9 g/dL (1.3-4.6); Glucose 92 mg/dL (65-115); Osmolality Calculated 299 mOsm/kg (285-295); Potassium 3.9 mmol/L (3.5-5.1); Sodium 143 mmol/L (136-145); Total Bilirubin 0.6 mg/dL (0.15-1.2); Total Protein 5.6 g/dL (6.6-8.7)
[2023-07-01] MEDS: sodium chloride 0.9% 250 ML 75 ML IV (09:26)
[2023-07-01] MEDS: ondansetron 2 mg/ML SDV 2 mL 8 MG IVP (09:27)
[2023-07-01] MEDS: acetaminophen 325 mg Tablet 650 MG PO (09:27)
[2023-07-01] MEDS: famotidine 20 mg/2 mL INJ IVP (09:30)
[2023-07-01] MEDS: diphenhydrAMINE 50 mg/mL SDV 1mL 25 MG IVP (09:31)
[2023-07-01] MEDS: [UNRECOGNIZED DRUG - OTHER] IV (09:44)
[2023-07-01] MEDS: SODIUM CHLORIDE 0.9% IV (09:44)
[2023-07-01 09:48] VITALS: BP 156/89; PULSE 87; RESP 16; O2SAT 98
[2023-07-01 10:19] VITALS: BP 147/79; PULSE 67; RESP 16; TEMP 36.3; O2SAT 97
[2023-07-01 11:15] VITALS: BP 149/80; PULSE 78; RESP 16; TEMP 35.9; O2SAT 98
[2023-07-01] MEDS: DEXTROSE 5% IV (12:09)
[2023-07-01] MEDS: CARFILZOMIB IV (12:09)
[2023-07-01 12:54] VITALS: BP 129/66; PULSE 73; RESP 16; O2SAT 98
== END 2023-07-01 23:59 | disposition home or self-care (01) ==
PROVIDERS: PCP Family Medicine; Visit Provider Internal Medicine Medical Oncology
DX: C90.02 Multiple myeloma in relapse
CPT/HCPCS: 80053; 85025; 96375; 96413; 96415; 96417; A4222; J1200; J1642; J2405; J3490; J7050; J9047; J9227

== ENCOUNTER 2023-07-15 07:48 | Oncology outpatient (recurring) (ONCR) | payer MEDICARE, OTHER, SELFPAY ==
[2023-07-15 08:29] LABS: Basophils % 0.8 %; Eosinophils # 0.2 10^3/uL (0.0-0.8); Hematocrit 36.8 % (37-53); Lymphocytes # 1.5 10^3/uL (0.8-4.8); Lymphocytes % 29.6 %; Mean Corpuscular Hemoglobin 34.7 pg (27-33); Mean Corpuscular Volume 102.2 fl (82-101); Mean Platelet Volume 10.9 fL (7.4-10.4); Monocytes # 0.6 10^3/uL (0.2-0.9); Monocytes % 12.6 %; Neutrophils # 2.69 10^3/uL (1.8-7.7); Neutrophils % 53.2 %; Nucleated Red Blood Cells % 0 %; Platelet Count 155 10^3/cmm (157-399); Red Cell Distribution Width 13.2 % (12.1-15.1); White Blood Count 5.06 10^3/uL (3.29-11.43)
[2023-07-15 08:49] LABS: Alanine Aminotransferase 8 U/L (0-41); Albumin Level 3.7 g/dL (3.5-5.2); Alkaline Phosphatase 68 U/L (40-130); Anion Gap 12.6 (5-19); Aspartate Amino Transferase 12 U/L (0-40); Blood Urea Nitrogen 18 mg/dL (8-23); Calcium 9.2 mg/dL (8.5-10.5); Carbon Dioxide 26 mmol/L (22-29); Chloride 105 mmol/L (98-107); Glucose 87 mg/dL (65-115); Osmolality Calculated 291 mOsm/kg (285-295); Potassium 3.6 mmol/L (3.5-5.1); Sodium 140 mmol/L (136-145); Total Bilirubin 0.6 mg/dL (0.15-1.2); Total Protein 5.7 g/dL (6.6-8.7)
[2023-07-15 08:57] LABS: Immunoglobulin IGG < 300 mg/dL (700-1600)
[2023-07-15 08:58] LABS: Immunoglobulin IGA < 50 mg/dL (70-400); Immunoglobulin IGM < 25 mg/dL (40-230)
[2023-07-15] MEDS: sodium chloride 0.9% 250 ML 75 ML IV (10:23)
[2023-07-15] MEDS: acetaminophen 325 mg Tablet 650 MG PO (10:24)
[2023-07-15] MEDS: famotidine 20 mg/2 mL INJ IVP (10:25)
[2023-07-15] MEDS: ondansetron 2 mg/ML SDV 2 mL 8 MG IVP (10:27)
[2023-07-15] MEDS: diphenhydrAMINE 50 mg/mL SDV 1mL 25 MG IVP (10:32)
[2023-07-15 10:50] VITALS: BP 165/82; PULSE 64; RESP 16; TEMP 36.2; O2SAT 98
[2023-07-15] MEDS: SODIUM CHLORIDE 0.9% IV (10:50)
[2023-07-15] MEDS: [UNRECOGNIZED DRUG - OTHER] IV (10:50)
[2023-07-15 11:22] VITALS: BP 156/79; PULSE 79; RESP 16; O2SAT 98
[2023-07-15 11:50] VITALS: BP 135/72; PULSE 68; RESP 16; TEMP 35.9; O2SAT 93
[2023-07-15 12:20] VITALS: BP 133/77; PULSE 78; RESP 16; TEMP 36.2; O2SAT 98
[2023-07-15] MEDS: dextrose 5% 250 ML 75 ML IV (13:18)
[2023-07-15] MEDS: CARFILZOMIB IV (13:19)
[2023-07-15] MEDS: DEXTROSE 5% IV (13:19)
[2023-07-15 14:13] VITALS: BP 153/74; PULSE 69; RESP 18; TEMP 36.3; O2SAT 99
[2023-07-16 10:50] LABS: PROTEIN, TOTAL 5.4 g/dL (6.1-8.1)
[2023-07-16 13:00] LABS: KAPPA LIGHT CHAIN, FREE, SERUM 1.3 mg/L (3.3-19.4); KAPPA/LAMBDA LIGHT CHAINS FREE 0.81 (0.26-1.65); LAMBDA LIGHT CHAIN, FREE, SERU 1.6 mg/L (5.7-26.3)
[2023-07-17 10:45] LABS: ABNORMAL PROTEIN BAND 1 0.1 g/dL (NONE DETECTED); ABNORMAL PROTEIN BAND 2 0.1 g/dL (NONE DETECTED); ALBUMIN 3.6 g/dL (3.8-4.8); ALPHA 1 GLOBULIN 0.3 g/dL (0.2-0.3); ALPHA 2 GLOBULIN 0.6 g/dL (0.5-0.9); BETA 1 GLOBULIN 0.3 g/dL (0.4-0.6); BETA 2 GLOBULIN 0.3 g/dL (0.2-0.5); GAMMA GLOBULIN 0.2 g/dL (0.8-1.7)
== END 2023-07-15 23:59 | disposition home or self-care (01) ==
PROVIDERS: PCP Family Medicine; Visit Provider Internal Medicine Medical Oncology
DX: Z51.11 Encounter for antineoplastic chemotherapy (principal); C90.02 Multiple myeloma in relapse; Z53.9 Procedure and treatment not carried out, unspecified reason; Z79.899 Other long term (current) drug therapy
CPT/HCPCS: 80053; 82784; 83883; 84155; 84165; 85025; 86334; 96375; 96413; 96417; 99214; J1200; J2405; J3490; J7050; J7060; J9047; J9227

== ENCOUNTER 2023-07-29 07:29 | Oncology outpatient (recurring) (ONCR) | payer MEDICARE, OTHER, SELFPAY ==
[2023-07-29 07:46] LABS: Basophils % 0.6 %; Eosinophils # 0.2 10^3/uL (0.0-0.8); Eosinophils % 3.9 %; Hematocrit 38.6 % (37-53); Lymphocytes # 1.6 10^3/uL (0.8-4.8); Lymphocytes % 31.6 %; Mean Corpuscular HGB Conc 34.2 g/dL (30-55); Mean Corpuscular Hemoglobin 35.4 pg (27-33); Mean Corpuscular Volume 103.5 fl (82-101); Monocytes # 0.6 10^3/uL (0.2-0.9); Monocytes % 12.4 %; Neutrophils % 51.3 %; Nucleated Red Blood Cells % 0 %; Platelet Count 158 10^3/cmm (157-399); Red Blood Count 3.73 10^6/uL (3.85-5.65); Red Cell Distribution Width 13.1 % (12.1-15.1); White Blood Count 5.07 10^3/uL (3.29-11.43)
[2023-07-29 08:07] LABS: Alanine Aminotransferase 9 U/L (0-41); Albumin Level 3.8 g/dL (3.5-5.2); Alkaline Phosphatase 68 U/L (40-130); Anion Gap 13.7 (5-19); Aspartate Amino Transferase 13 U/L (0-40); Blood Urea Nitrogen 21 mg/dL (8-23); Calcium 8.8 mg/dL (8.5-10.5); Carbon Dioxide 25 mmol/L (22-29); Chloride 106 mmol/L (98-107); Globulin 1.8 g/dL (1.3-4.6); Glucose 92 mg/dL (65-115); Osmolality Calculated 295 mOsm/kg (285-295); Potassium 3.7 mmol/L (3.5-5.1); Sodium 141 mmol/L (136-145); Total Bilirubin 0.5 mg/dL (0.15-1.2); Total Protein 5.6 g/dL (6.6-8.7)
[2023-07-29] MEDS: sodium chloride 0.9% 250 ML 75 ML IV (09:09)
[2023-07-29] MEDS: acetaminophen 325 mg Tablet 650 MG PO (09:10)
[2023-07-29] MEDS: diphenhydrAMINE 50 mg/mL SDV 1mL 25 MG IVP (09:13)
[2023-07-29] MEDS: ondansetron 2 mg/ML SDV 2 mL 8 MG IVP (09:14)
[2023-07-29] MEDS: famotidine 20 mg/2 mL INJ IVP (09:14)
[2023-07-29] MEDS: [UNRECOGNIZED DRUG - OTHER] IV (09:50)
[2023-07-29] MEDS: SODIUM CHLORIDE 0.9% IV (09:50)
[2023-07-29] MEDS: dextrose 5% 250 ML 75 ML IV (12:17)
[2023-07-29] MEDS: DEXTROSE 5% IV (12:20)
[2023-07-29] MEDS: CARFILZOMIB IV (12:20)
[2023-07-29 12:56] VITALS: BP 147/79; PULSE 63; RESP 16; TEMP 36.2; O2SAT 96
== END 2023-07-29 23:59 | disposition home or self-care (01) ==
PROVIDERS: Nurse Practitioner Family; PCP Family Medicine; Visit Provider Internal Medicine Medical Oncology
DX: Z51.11 Encounter for antineoplastic chemotherapy (principal); C90.02 Multiple myeloma in relapse; Z79.899 Other long term (current) drug therapy; Z51.12 Encounter for antineoplastic immunotherapy
CPT/HCPCS: 80053; 85025; 96375; 96413; 96415; 96417; A4222; J1200; J2405; J3490; J7050; J7060; J9047; J9227

== ENCOUNTER 2023-08-12 07:15 | Oncology outpatient (recurring) (ONCR) | payer MEDICARE, OTHER, SELFPAY ==
[2023-08-12 07:47] LABS: Basophils % 0.4 %; Eosinophils # 0.2 10^3/uL (0.0-0.8); Eosinophils % 3.2 %; Hematocrit 37.5 % (37-53); Lymphocytes # 1.5 10^3/uL (0.8-4.8); Mean Corpuscular HGB Conc 34.1 g/dL (30-55); Mean Corpuscular Hemoglobin 35.3 pg (27-33); Mean Corpuscular Volume 103.3 fl (82-101); Monocytes # 0.5 10^3/uL (0.2-0.9); Monocytes % 10.8 %; Neutrophils # 2.73 10^3/uL (1.8-7.7); Neutrophils % 55.4 %; Nucleated Red Blood Cells % 0 %; Platelet Count 144 10^3/cmm (157-399); Red Blood Count 3.63 10^6/uL (3.85-5.65); Red Cell Distribution Width 13.3 % (12.1-15.1); White Blood Count 4.93 10^3/uL (3.29-11.43)
[2023-08-12 08:10] LABS: Alanine Aminotransferase 9 U/L (0-41); Albumin Level 3.7 g/dL (3.5-5.2); Alkaline Phosphatase 70 U/L (40-130); Anion Gap 11.9 (5-19); Aspartate Amino Transferase 13 U/L (0-40); Blood Urea Nitrogen 17 mg/dL (8-23); Calcium 8.9 mg/dL (8.5-10.5); Carbon Dioxide 24 mmol/L (22-29); Chloride 106 mmol/L (98-107); Glucose 85 mg/dL (65-115); Osmolality Calculated 287 mOsm/kg (285-295); Potassium 3.9 mmol/L (3.5-5.1); Sodium 138 mmol/L (136-145); Total Bilirubin 0.5 mg/dL (0.15-1.2); Total Protein 5.7 g/dL (6.6-8.7)
[2023-08-12 08:13] LABS: Immunoglobulin IGA < 50 mg/dL (70-400); Immunoglobulin IGG < 300 mg/dL (700-1600); Immunoglobulin IGM < 25 mg/dL (40-230)
[2023-08-12] MEDS: sodium chloride 0.9% 250 ML 75 ML IV (09:02)
[2023-08-12] MEDS: acetaminophen 325 mg Tablet 650 MG PO (09:02)
[2023-08-12] MEDS: ondansetron 2 mg/ML SDV 2 mL 8 MG IVP (09:02)
[2023-08-12] MEDS: diphenhydrAMINE 50 mg/mL SDV 1mL 25 MG IVP (09:05)
[2023-08-12] MEDS: famotidine 20 mg/2 mL INJ IVP (09:07)
[2023-08-12 09:25] VITALS: BP 139/84; PULSE 71; RESP 16; TEMP 35.8; O2SAT 98
[2023-08-12] MEDS: SODIUM CHLORIDE 0.9% IV (09:25)
[2023-08-12] MEDS: [UNRECOGNIZED DRUG - OTHER] IV (09:25)
[2023-08-12 09:55] VITALS: BP 125/68; PULSE 75; RESP 16; TEMP 36.1; O2SAT 98
[2023-08-12 10:25] VITALS: BP 122/76; PULSE 76; RESP 16; TEMP 36.2; O2SAT 97
[2023-08-12 10:55] VITALS: BP 126/66; PULSE 72; RESP 16; TEMP 36.2; O2SAT 98
[2023-08-12 11:47] VITALS: BP 138/79; PULSE 68; RESP 16; TEMP 36.2; O2SAT 98
[2023-08-12] MEDS: dextrose 5% 250 ML 75 ML IV (11:54)
[2023-08-12] MEDS: CARFILZOMIB IV (11:58)
[2023-08-12] MEDS: DEXTROSE 5% IV (11:58)
[2023-08-12 12:57] VITALS: BP 126/76; PULSE 71; RESP 16; TEMP 36.2; O2SAT 98
[2023-08-13 10:34] LABS: PROTEIN, TOTAL 5.2 g/dL (6.1-8.1)
[2023-08-14 09:49] LABS: ABNORMAL PROTEIN BAND 1 0.1 g/dL (NONE DETECTED); ALBUMIN 3.5 g/dL (3.8-4.8); ALPHA 1 GLOBULIN 0.3 g/dL (0.2-0.3); ALPHA 2 GLOBULIN 0.6 g/dL (0.5-0.9); BETA 1 GLOBULIN 0.3 g/dL (0.4-0.6); BETA 2 GLOBULIN 0.3 g/dL (0.2-0.5); GAMMA GLOBULIN 0.2 g/dL (0.8-1.7)
[2023-08-17 20:39] LABS: Immunofixation Serum Normal pattern.
== END 2023-08-12 23:59 | disposition home or self-care (01) ==
PROVIDERS: Nurse Practitioner Family; PCP Family Medicine; Visit Provider Internal Medicine Medical Oncology
DX: Z51.11 Encounter for antineoplastic chemotherapy (principal); C90.02 Multiple myeloma in relapse; Z79.899 Other long term (current) drug therapy; Z51.12 Encounter for antineoplastic immunotherapy
CPT/HCPCS: 80053; 82784; 83883; 84155; 84165; 85025; 86334; 96375; 96413; 96415; 96417; 99214; J1200; J2405; J3490; J7050; J7060; J9047; J9227

== ENCOUNTER 2023-08-27 07:16 | Oncology outpatient (recurring) (ONCR) | payer MEDICARE, OTHER, SELFPAY ==
[2023-08-27 08:09] LABS: Basophils % 0.8 %; Eosinophils # 0.2 10^3/uL (0.0-0.8); Eosinophils % 3.4 %; Hematocrit 37.5 % (37-53); Lymphocytes # 1.6 10^3/uL (0.8-4.8); Lymphocytes % 31.5 %; Mean Corpuscular HGB Conc 34.1 g/dL (30-55); Mean Corpuscular Hemoglobin 35.5 pg (27-33); Mean Corpuscular Volume 103.9 fl (82-101); Mean Platelet Volume 10.7 fL (7.4-10.4); Monocytes # 0.6 10^3/uL (0.2-0.9); Monocytes % 12.5 %; Neutrophils # 2.55 10^3/uL (1.8-7.7); Neutrophils % 51.6 %; Nucleated Red Blood Cells % 0 %; Platelet Count 155 10^3/cmm (157-399); Red Blood Count 3.61 10^6/uL (3.85-5.65); Red Cell Distribution Width 13.4 % (12.1-15.1); White Blood Count 4.95 10^3/uL (3.29-11.43)
[2023-08-27 08:30] LABS: Alanine Aminotransferase 9 U/L (0-41); Albumin Level 3.6 g/dL (3.5-5.2); Alkaline Phosphatase 71 U/L (40-130); Anion Gap 12.6 (5-19); Aspartate Amino Transferase 13 U/L (0-40); Blood Urea Nitrogen 19 mg/dL (8-23); Calcium 8.9 mg/dL (8.5-10.5); Carbon Dioxide 25 mmol/L (22-29); Chloride 105 mmol/L (98-107); Glucose 120 mg/dL (65-115); Osmolality Calculated 291 mOsm/kg (285-295); Potassium 3.6 mmol/L (3.5-5.1); Sodium 139 mmol/L (136-145); Total Bilirubin 0.5 mg/dL (0.15-1.2); Total Protein 5.6 g/dL (6.6-8.7)
[2023-08-27] MEDS: sodium chloride 0.9% 250 ML 75 ML IV (10:04)
[2023-08-27] MEDS: acetaminophen 325 mg Tablet 650 MG PO (10:05)
[2023-08-27] MEDS: diphenhydrAMINE 50 mg/mL SDV 1mL 25 MG IVP (10:08)
[2023-08-27] MEDS: ondansetron 2 mg/ML SDV 2 mL 8 MG IVP (10:08)
[2023-08-27] MEDS: famotidine 20 mg/2 mL INJ IVP (10:08)
[2023-08-27 10:12] VITALS: BMI 24.6
[2023-08-27 10:14] VITALS: BP 138/85; PULSE 75; RESP 17; TEMP 36.6; O2SAT 98
[2023-08-27] MEDS: SODIUM CHLORIDE 0.9% IV (10:22)
[2023-08-27] MEDS: [UNRECOGNIZED DRUG - OTHER] IV (10:22)
[2023-08-27 10:55] VITALS: BP 122/71; PULSE 82; RESP 16; TEMP 36.6; O2SAT 96
[2023-08-27 11:25] VITALS: BP 119/72; PULSE 68; RESP 17; TEMP 36; O2SAT 97
[2023-08-27 11:55] VITALS: BP 133/77; PULSE 69; RESP 18; TEMP 35.8; O2SAT 97
[2023-08-27] MEDS: DEXTROSE 5% IV (12:50)
[2023-08-27] MEDS: dextrose 5% 250 ML 45 ML IV (12:50)
[2023-08-27] MEDS: CARFILZOMIB IV (12:50)
[2023-08-27 13:32] VITALS: BP 138/56; PULSE 64; RESP 18; TEMP 36; O2SAT 99
== END 2023-08-27 23:59 | disposition home or self-care (01) ==
LOC: ONCMED 07:16
PROVIDERS: Nurse Practitioner Family; PCP Family Medicine; Visit Provider Internal Medicine Medical Oncology
DX: Z51.11 Encounter for antineoplastic chemotherapy (principal); C90.02 Multiple myeloma in relapse; Z79.899 Other long term (current) drug therapy; Z51.12 Encounter for antineoplastic immunotherapy
CPT/HCPCS: 80053; 85025; 96375; 96413; 96415; 96417; A4222; J1200; J2405; J3490; J7050; J7060; J9047; J9227

== ENCOUNTER 2023-09-09 07:18 | Oncology outpatient (recurring) (ONCR) | payer MEDICARE, OTHER, SELFPAY ==
[2023-09-09 07:41] LABS: Basophils % 0.6 %; Eosinophils # 0.2 10^3/uL (0.0-0.8); Hematocrit 39.2 % (37-53); Lymphocytes # 1.9 10^3/uL (0.8-4.8); Lymphocytes % 35.9 %; Mean Corpuscular HGB Conc 34.2 g/dL (30-55); Mean Corpuscular Volume 102.3 fl (82-101); Mean Platelet Volume 10.5 fL (7.4-10.4); Monocytes # 0.7 10^3/uL (0.2-0.9); Monocytes % 12.9 %; Neutrophils # 2.49 10^3/uL (1.8-7.7); Neutrophils % 47.4 %; Nucleated Red Blood Cells % 0 %; Platelet Count 152 10^3/cmm (157-399); Red Blood Count 3.83 10^6/uL (3.85-5.65); Red Cell Distribution Width 13.1 % (12.1-15.1); White Blood Count 5.26 10^3/uL (3.29-11.43)
[2023-09-09 08:01] LABS: Alanine Aminotransferase 8 U/L (0-41); Albumin Level 3.8 g/dL (3.5-5.2); Alkaline Phosphatase 73 U/L (40-130); Anion Gap 14.8 (5-19); Aspartate Amino Transferase 12 U/L (0-40); Blood Urea Nitrogen 18 mg/dL (8-23); Calcium 8.8 mg/dL (8.5-10.5); Carbon Dioxide 23 mmol/L (22-29); Chloride 106 mmol/L (98-107); Globulin 1.9 g/dL (1.3-4.6); Glucose 95 mg/dL (65-115); Osmolality Calculated 292 mOsm/kg (285-295); Potassium 3.8 mmol/L (3.5-5.1); Sodium 140 mmol/L (136-145); Total Bilirubin 0.5 mg/dL (0.15-1.2); Total Protein 5.7 g/dL (6.6-8.7)
[2023-09-09 08:04] LABS: Immunoglobulin IGA < 50 mg/dL (70-400); Immunoglobulin IGG < 300 mg/dL (700-1600); Immunoglobulin IGM < 25 mg/dL (40-230)
[2023-09-09] MEDS: acetaminophen 325 mg Tablet 650 MG PO (09:26)
[2023-09-09] MEDS: sodium chloride 0.9% 250 ML 75 ML IV (09:26)
[2023-09-09] MEDS: diphenhydrAMINE 50 mg/mL SDV 1mL 25 MG IVP (09:27)
[2023-09-09] MEDS: famotidine 20 mg/2 mL INJ IVP (09:32)
[2023-09-09] MEDS: ondansetron 2 mg/ML SDV 2 mL 8 MG IVP (09:35)
[2023-09-09] MEDS: [UNRECOGNIZED DRUG - OTHER] IV (10:10)
[2023-09-09] MEDS: SODIUM CHLORIDE 0.9% IV (10:10)
[2023-09-09 10:15] VITALS: BP 153/79; PULSE 71; RESP 18; TEMP 36.2; O2SAT 97
[2023-09-09 10:45] VITALS: BP 115/65; PULSE 74; RESP 18; TEMP 35.9; O2SAT 98
[2023-09-09 11:15] VITALS: BP 116/64; PULSE 76; RESP 16; TEMP 36.2; O2SAT 98
[2023-09-09 11:45] VITALS: BP 127/72; PULSE 70; RESP 16; TEMP 35.6; O2SAT 94
[2023-09-09] MEDS: DEXTROSE 5% IV (12:34)
[2023-09-09] MEDS: dextrose 5% 250 ML 75 ML IV (12:34)
[2023-09-09] MEDS: CARFILZOMIB IV (12:34)
[2023-09-09 13:40] VITALS: BP 138/78; PULSE 72; RESP 18; TEMP 35.7; O2SAT 97
[2023-09-10 07:10] LABS: PROTEIN, TOTAL 5.3 g/dL (6.1-8.1)
[2023-09-10 11:40] LABS: KAPPA LIGHT CHAIN, FREE, SERUM 0.9 mg/L (3.3-19.4); KAPPA/LAMBDA LIGHT CHAINS FREE 0.45 (0.26-1.65)
[2023-09-10 15:18] LABS: ABNORMAL PROTEIN BAND 1 0.1 g/dL (NONE DETECTED); ALBUMIN 3.5 g/dL (3.8-4.8); ALPHA 1 GLOBULIN 0.3 g/dL (0.2-0.3); ALPHA 2 GLOBULIN 0.6 g/dL (0.5-0.9); BETA 1 GLOBULIN 0.4 g/dL (0.4-0.6); BETA 2 GLOBULIN 0.3 g/dL (0.2-0.5); GAMMA GLOBULIN 0.2 g/dL (0.8-1.7)
[2023-09-13 21:19] LABS: Immunofixation Serum Normal pattern.
== END 2023-09-09 23:59 | disposition home or self-care (01) ==
PROVIDERS: Internal Medicine; PCP Family Medicine; Visit Provider Internal Medicine Medical Oncology
DX: Z51.11 Encounter for antineoplastic chemotherapy (principal); C90.02 Multiple myeloma in relapse; Z79.899 Other long term (current) drug therapy; Z51.12 Encounter for antineoplastic immunotherapy
CPT/HCPCS: 80053; 82784; 83883; 84155; 84165; 85025; 86334; 96375; 96376; 96413; 96415; 96417; 99213; A4222; J1200; J2405; J3490; J7050; J7060; J9047; J9227

== ENCOUNTER 2023-09-23 07:19 | Oncology outpatient (recurring) (ONCR) | payer MEDICARE, OTHER, SELFPAY ==
[2023-09-23 07:35] LABS: Basophils % 0.6 %; Eosinophils # 0.2 10^3/uL (0.0-0.8); Eosinophils % 3.4 %; Hematocrit 40.1 % (37-53); Lymphocytes # 2.1 10^3/uL (0.8-4.8); Mean Corpuscular HGB Conc 33.9 g/dL (30-55); Mean Corpuscular Volume 103.1 fl (82-101); Monocytes # 0.6 10^3/uL (0.2-0.9); Monocytes % 11.7 %; Neutrophils # 2.34 10^3/uL (1.8-7.7); Neutrophils % 44.1 %; Nucleated Red Blood Cells % 0 %; Platelet Count 165 10^3/cmm (157-399); Red Blood Count 3.89 10^6/uL (3.85-5.65); Red Cell Distribution Width 13.2 % (12.1-15.1)
[2023-09-23 07:52] LABS: Alanine Aminotransferase 11 U/L (0-41); Albumin Level 3.8 g/dL (3.5-5.2); Alkaline Phosphatase 71 U/L (40-130); Blood Urea Nitrogen 19 mg/dL (8-23); Carbon Dioxide 24 mmol/L (22-29); Chloride 104 mmol/L (98-107); Glucose 107 mg/dL (65-115); Osmolality Calculated 291 mOsm/kg (285-295); Sodium 139 mmol/L (136-145); Total Bilirubin 0.5 mg/dL (0.15-1.2); Total Protein 5.8 g/dL (6.6-8.7)
[2023-09-23 08:00] LABS: Aspartate Amino Transferase 17 U/L (0-40)
[2023-09-23] MEDS: sodium chloride 0.9% 250 ML 75 ML IV (08:32)
[2023-09-23] MEDS: diphenhydrAMINE 50 mg/mL SDV 1mL 25 MG IVP (08:33)
[2023-09-23] MEDS: famotidine 20 mg/2 mL INJ IVP (08:38)
[2023-09-23] MEDS: ondansetron 2 mg/ML SDV 2 mL 8 MG IVP (08:42)
[2023-09-23] MEDS: acetaminophen 325 mg Tablet 650 MG PO (08:47)
[2023-09-23] MEDS: [UNRECOGNIZED DRUG - OTHER] IV (09:09)
[2023-09-23] MEDS: SODIUM CHLORIDE 0.9% IV (09:09)
[2023-09-23 09:14] VITALS: BP 134/77; PULSE 70; TEMP 35.7; O2SAT 96
[2023-09-23 09:45] VITALS: BP 137/78; PULSE 72; RESP 17; TEMP 35.8; O2SAT 98
[2023-09-23 10:15] VITALS: BP 117/68; PULSE 74; RESP 17; TEMP 35.6; O2SAT 97
[2023-09-23 10:45] VITALS: BP 110/61; PULSE 57; RESP 16; TEMP 36.3; O2SAT 95
[2023-09-23 11:39] VITALS: BP 127/68; PULSE 73; RESP 16; TEMP 35.8; O2SAT 98
[2023-09-23] MEDS: dextrose 5% 250 ML 75 ML IV (11:44)
[2023-09-23] MEDS: DEXTROSE 5% IV (11:50)
[2023-09-23] MEDS: CARFILZOMIB IV (11:50)
[2023-09-23 12:45] VITALS: BP 130/79; PULSE 65; RESP 16; TEMP 35.7; O2SAT 97
== END 2023-09-23 23:59 | disposition home or self-care (01) ==
LOC: ONCMED 07:19
PROVIDERS: Internal Medicine; PCP Family Medicine; Visit Provider Internal Medicine Medical Oncology
DX: Z51.11 Encounter for antineoplastic chemotherapy (principal); C90.02 Multiple myeloma in relapse; Z79.899 Other long term (current) drug therapy
CPT/HCPCS: 80053; 85025; 96367; 96375; 96413; 96415; 96417; A4222; J1200; J2405; J3490; J7050; J7060; J9047; J9227

== ENCOUNTER 2023-10-07 07:15 | Oncology outpatient (recurring) (ONCR) | payer MEDICARE, OTHER, SELFPAY ==
[2023-10-07 07:49] LABS: Basophils % 0.4 %; Eosinophils # 0.2 10^3/uL (0.0-0.8); Hematocrit 38.7 % (37-53); Lymphocytes # 1.6 10^3/uL (0.8-4.8); Lymphocytes % 33.6 %; Mean Corpuscular HGB Conc 34.4 g/dL (30-55); Mean Corpuscular Hemoglobin 35.9 pg (27-33); Mean Corpuscular Volume 104.6 fl (82-101); Mean Platelet Volume 10.8 fL (7.4-10.4); Monocytes # 0.5 10^3/uL (0.2-0.9); Monocytes % 11.1 %; Neutrophils # 2.43 10^3/uL (1.8-7.7); Neutrophils % 50.7 %; Nucleated Red Blood Cells % 0 %; Platelet Count 154 10^3/cmm (157-399); Red Cell Distribution Width 13.2 % (12.1-15.1); White Blood Count 4.79 10^3/uL (3.29-11.43)
[2023-10-07 08:12] LABS: Alanine Aminotransferase 9 U/L (0-41); Albumin Level 3.7 g/dL (3.5-5.2); Alkaline Phosphatase 67 U/L (40-130); Anion Gap 12.8 (5-19); Aspartate Amino Transferase 13 U/L (0-40); Blood Urea Nitrogen 17 mg/dL (8-23); Calcium 8.6 mg/dL (8.5-10.5); Carbon Dioxide 24 mmol/L (22-29); Chloride 105 mmol/L (98-107); Globulin 1.8 g/dL (1.3-4.6); Glucose 119 mg/dL (65-115); Osmolality Calculated 289 mOsm/kg (285-295); Potassium 3.8 mmol/L (3.5-5.1); Sodium 138 mmol/L (136-145); Total Bilirubin 0.5 mg/dL (0.15-1.2); Total Protein 5.5 g/dL (6.6-8.7)
[2023-10-07 08:15] LABS: Immunoglobulin IGA < 50 mg/dL (70-400); Immunoglobulin IGG < 300 mg/dL (700-1600); Immunoglobulin IGM < 25 mg/dL (40-230)
[2023-10-07] MEDS: sodium chloride 0.9% 250 ML 75 ML IV (09:46)
[2023-10-07] MEDS: diphenhydrAMINE 50 mg/mL SDV 1mL 25 MG IVP (09:50)
[2023-10-07] MEDS: acetaminophen 325 mg Tablet 650 MG PO (09:55)
[2023-10-07] MEDS: ondansetron 2 mg/ML SDV 2 mL 8 MG IVP (09:56)
[2023-10-07] MEDS: famotidine 20 mg/2 mL INJ IVP (10:01)
[2023-10-07 10:14] VITALS: BP 144/84; PULSE 70; RESP 16; TEMP 35.8; O2SAT 99
[2023-10-07] MEDS: SODIUM CHLORIDE 0.9% IV (10:14)
[2023-10-07] MEDS: [UNRECOGNIZED DRUG - OTHER] IV (10:14)
[2023-10-07 10:44] VITALS: BP 115/68; PULSE 65; RESP 16; TEMP 36.6; O2SAT 92
[2023-10-07 11:14] VITALS: BP 117/73; PULSE 62; RESP 16; TEMP 35.7; O2SAT 96
[2023-10-07] MEDS: dextrose 5% 250 ML 75 ML IV (12:38)
[2023-10-07] MEDS: CARFILZOMIB IV (12:40)
[2023-10-07] MEDS: DEXTROSE 5% IV (12:40)
[2023-10-07 13:15] VITALS: BP 113/71; PULSE 61; RESP 16; TEMP 36.1; O2SAT 100
[2023-10-10 12:10] LABS: KAPPA LIGHT CHAIN, FREE, SERUM 1.1 mg/L (3.3-19.4); LAMBDA LIGHT CHAIN, FREE, SERU 2.2 mg/L (5.7-26.3)
== END 2023-10-07 23:59 | disposition home or self-care (01) ==
PROVIDERS: Internal Medicine; PCP Family Medicine; Visit Provider Internal Medicine Medical Oncology
DX: C90.02 Multiple myeloma in relapse; Z79.899 Other long term (current) drug therapy; Z51.12 Encounter for antineoplastic immunotherapy
CPT/HCPCS: 36591; 80053; 82784; 83883; 84155; 84165; 85025; 96375; 96413; 96415; 96417; 99214; A4222; J1200; J2405; J3490; J7050; J7060; J9047; J9227

== ENCOUNTER → 2023-10-08 08:20 | Outpatient (BNVA) | payer MEDICARE, OTHER, SELFPAY | PROVIDERS: PCP Family Medicine; Visit Provider Nurse Practitioner Family | DX: L57.0 Actinic keratosis (principal); C90.00 Multiple myeloma not having achieved remission; L82.1 Other seborrheic keratosis; L81.4 Other melanin hyperpigmentation | CPT/HCPCS: 17004; 99214 ==

== ENCOUNTER 2023-10-21 07:16 | Oncology outpatient (recurring) (ONCR) | payer MEDICARE, OTHER, SELFPAY ==
[2023-10-21 07:38] VITALS: BP 133/69; PULSE 84; TEMP 36.4; O2SAT 95
[2023-10-21 07:42] LABS: Basophils % 0.7 %; Eosinophils # 0.1 10^3/uL (0.0-0.8); Eosinophils % 2.5 %; Hematocrit 38.1 % (37-53); Lymphocytes # 1.7 10^3/uL (0.8-4.8); Lymphocytes % 30.6 %; Mean Corpuscular HGB Conc 34.6 g/dL (30-55); Mean Corpuscular Volume 103.8 fl (82-101); Mean Platelet Volume 10.6 fL (7.4-10.4); Monocytes # 0.7 10^3/uL (0.2-0.9); Monocytes % 11.7 %; Neutrophils # 3.07 10^3/uL (1.8-7.7); Neutrophils % 54.1 %; Nucleated Red Blood Cells % 0 %; Platelet Count 147 10^3/cmm (157-399); Red Blood Count 3.67 10^6/uL (3.85-5.65); White Blood Count 5.66 10^3/uL (3.29-11.43)
[2023-10-21 08:08] LABS: Alanine Aminotransferase 9 U/L (0-41); Albumin Level 3.8 g/dL (3.5-5.2); Alkaline Phosphatase 72 U/L (40-130); Anion Gap 12.9 (5-19); Aspartate Amino Transferase 12 U/L (0-40); Blood Urea Nitrogen 20 mg/dL (8-23); Carbon Dioxide 25 mmol/L (22-29); Chloride 104 mmol/L (98-107); Globulin 1.8 g/dL (1.3-4.6); Glucose 88 mg/dL (65-115); Osmolality Calculated 288 mOsm/kg (285-295); Potassium 3.9 mmol/L (3.5-5.1); Sodium 138 mmol/L (136-145); Total Bilirubin 0.5 mg/dL (0.15-1.2); Total Protein 5.6 g/dL (6.6-8.7)
[2023-10-21] MEDS: sodium chloride 0.9% 500 ML 999 ML IV (08:50)
[2023-10-21] MEDS: ondansetron 2 mg/ML SDV 2 mL 8 MG IVP (08:53)
[2023-10-21] MEDS: famotidine 20 mg/2 mL INJ IVP (08:57)
[2023-10-21] MEDS: diphenhydrAMINE 50 mg/mL SDV 1mL 25 MG IVP (09:01)
[2023-10-21] MEDS: acetaminophen 325 mg Tablet 650 MG PO (09:05)
[2023-10-21] MEDS: [UNRECOGNIZED DRUG - OTHER] IV (09:49)
[2023-10-21] MEDS: SODIUM CHLORIDE 0.9% IV (09:49)
[2023-10-21 09:54] VITALS: BP 126/79; PULSE 63; RESP 16; TEMP 35.9; O2SAT 95
[2023-10-21 10:24] VITALS: BP 119/75; PULSE 69; RESP 16; TEMP 36.1; O2SAT 97
[2023-10-21 10:54] VITALS: BP 115/74; PULSE 66; RESP 16; TEMP 35.8; O2SAT 95
[2023-10-21 11:24] VITALS: BP 118/76; PULSE 67; RESP 16; TEMP 35.9; O2SAT 97
[2023-10-21] MEDS: DEXTROSE 5% IV (12:40)
[2023-10-21] MEDS: dextrose 5% 250 ML 75 ML IV (12:40)
[2023-10-21] MEDS: CARFILZOMIB IV (12:40)
[2023-10-21 13:28] VITALS: BP 130/72; PULSE 82; RESP 17; TEMP 36; O2SAT 95
== END 2023-10-21 23:59 | disposition home or self-care (01) ==
PROVIDERS: Nurse Practitioner Family; PCP Family Medicine; Visit Provider Internal Medicine Medical Oncology
DX: Z51.11 Encounter for antineoplastic chemotherapy (principal); C90.02 Multiple myeloma in relapse; Z79.899 Other long term (current) drug therapy; Z51.12 Encounter for antineoplastic immunotherapy
CPT/HCPCS: 80053; 85025; 96375; 96413; 96415; 96417; A4222; J1200; J2405; J3490; J7040; J7050; J7060; J9047; J9227

== ENCOUNTER 2023-11-04 07:19 | Oncology outpatient (recurring) (ONCR) | payer MEDICARE, OTHER, SELFPAY ==
[2023-11-04 07:45] LABS: Basophils % 0.5 %; Eosinophils # 0.1 10^3/uL (0.0-0.8); Eosinophils % 2.3 %; Hematocrit 37.7 % (37-53); Lymphocytes # 1.5 10^3/uL (0.8-4.8); Mean Corpuscular HGB Conc 34.2 g/dL (30-55); Mean Corpuscular Hemoglobin 35.4 pg (27-33); Mean Corpuscular Volume 103.6 fl (82-101); Mean Platelet Volume 10.6 fL (7.4-10.4); Monocytes # 0.6 10^3/uL (0.2-0.9); Monocytes % 11.3 %; Neutrophils # 3.26 10^3/uL (1.8-7.7); Neutrophils % 58.7 %; Nucleated Red Blood Cells % 0 %; Platelet Count 154 10^3/cmm (157-399); Red Blood Count 3.64 10^6/uL (3.85-5.65); Red Cell Distribution Width 13.3 % (12.1-15.1); White Blood Count 5.56 10^3/uL (3.29-11.43)
[2023-11-04 08:03] LABS: Alanine Aminotransferase 8 U/L (0-41); Albumin Level 3.7 g/dL (3.5-5.2); Alkaline Phosphatase 69 U/L (40-130); Anion Gap 14.5 (5-19); Aspartate Amino Transferase 12 U/L (0-40); Blood Urea Nitrogen 22 mg/dL (8-23); Calcium 8.6 mg/dL (8.5-10.5); Carbon Dioxide 23 mmol/L (22-29); Chloride 104 mmol/L (98-107); Globulin 1.7 g/dL (1.3-4.6); Glucose 99 mg/dL (65-115); Immunoglobulin IGA 57 mg/dL (70-400); Immunoglobulin IGG < 300 mg/dL (700-1600); Osmolality Calculated 289 mOsm/kg (285-295); Potassium 3.5 mmol/L (3.5-5.1); Sodium 138 mmol/L (136-145); Total Bilirubin 0.6 mg/dL (0.15-1.2); Total Protein 5.4 g/dL (6.6-8.7)
[2023-11-04 08:04] LABS: Immunoglobulin IGM < 25 mg/dL (40-230)
[2023-11-04] MEDS: sodium chloride 0.9% 250 ML 75 ML IV (08:45)
[2023-11-04] MEDS: acetaminophen 325 mg Tablet 650 MG PO (08:47)
[2023-11-04] MEDS: ondansetron 2 mg/ML SDV 2 mL 8 MG IVP (08:48)
[2023-11-04] MEDS: diphenhydrAMINE 50 mg/mL SDV 1mL 25 MG IVP (08:51)
[2023-11-04] MEDS: famotidine 20 mg/2 mL INJ IVP (08:54)
[2023-11-04] MEDS: [UNRECOGNIZED DRUG - OTHER] IV (09:17)
[2023-11-04] MEDS: SODIUM CHLORIDE 0.9% IV (09:17)
[2023-11-04 09:20] VITALS: BP 149/83; PULSE 75; RESP 16; TEMP 35.8; O2SAT 99
[2023-11-04 09:50] VITALS: BP 135/76; PULSE 65; RESP 16; TEMP 35.8; O2SAT 99
[2023-11-04 10:20] VITALS: BP 131/79; PULSE 73; RESP 16; TEMP 36; O2SAT 99
[2023-11-04 10:50] VITALS: BP 113/62; PULSE 78; RESP 16; TEMP 35.6; O2SAT 97
[2023-11-04] MEDS: dextrose 5% 250 ML 75 ML IV (11:44)
[2023-11-04] MEDS: CARFILZOMIB IV (11:45)
[2023-11-04] MEDS: DEXTROSE 5% IV (11:45)
[2023-11-04 12:25] VITALS: BP 147/80; PULSE 75; RESP 16; TEMP 36; O2SAT 97
[2023-11-05 11:48] LABS: KAPPA LIGHT CHAIN, FREE, SERUM 1.2 mg/L (3.3-19.4); KAPPA/LAMBDA LIGHT CHAINS FREE 0.46 (0.26-1.65); LAMBDA LIGHT CHAIN, FREE, SERU 2.6 mg/L (5.7-26.3)
[2023-11-05 11:59] LABS: PROTEIN, TOTAL 5.1 g/dL (6.1-8.1)
[2023-11-06 14:55] LABS: ABNORMAL PROTEIN BAND 1 0.1 g/dL (NONE DETECTED); ALBUMIN 3.4 g/dL (3.8-4.8); ALPHA 1 GLOBULIN 0.3 g/dL (0.2-0.3); ALPHA 2 GLOBULIN 0.6 g/dL (0.5-0.9); BETA 1 GLOBULIN 0.3 g/dL (0.4-0.6); BETA 2 GLOBULIN 0.3 g/dL (0.2-0.5); GAMMA GLOBULIN 0.2 g/dL (0.8-1.7)
== END 2023-11-04 23:59 | disposition home or self-care (01) ==
LOC: ONCMED 07:20
PROVIDERS: Nurse Practitioner Family; PCP Family Medicine; Visit Provider Internal Medicine Medical Oncology
DX: Z51.11 Encounter for antineoplastic chemotherapy (principal); Z51.12 Encounter for antineoplastic immunotherapy; Z79.899 Other long term (current) drug therapy; C90.02 Multiple myeloma in relapse; Z95.828 Presence of other vascular implants and grafts; Z79.52 Long term (current) use of systemic steroids
CPT/HCPCS: 80053; 82784; 83883; 84155; 84165; 85025; 96375; 96413; 96415; 96417; 99214; A4222; J1200; J2405; J3490; J7050; J7060; J9047; J9227

== ENCOUNTER 2023-11-18 07:19 | Oncology outpatient (recurring) (ONCR) | payer MEDICARE, OTHER, SELFPAY ==
[2023-11-18] VITALS (7 sets, daily range): BP systolic 118–134; BP diastolic 66–79; PULSE 65–80; RESP 16; TEMP 36.2–36.7; O2SAT 96–99
[2023-11-18 07:57] LABS: Basophils % 0.8 %; Eosinophils # 0.2 10^3/uL (0.0-0.8); Eosinophils % 3.3 %; Hematocrit 36.1 % (37-53); Lymphocytes # 1.5 10^3/uL (0.8-4.8); Lymphocytes % 29.6 %; Mean Corpuscular HGB Conc 34.1 g/dL (30-55); Mean Corpuscular Volume 102.8 fl (82-101); Mean Platelet Volume 10.7 fL (7.4-10.4); Monocytes # 0.6 10^3/uL (0.2-0.9); Monocytes % 11.4 %; Neutrophils # 2.78 10^3/uL (1.8-7.7); Neutrophils % 54.5 %; Nucleated Red Blood Cells % 0 %; Platelet Count 148 10^3/cmm (157-399); Red Blood Count 3.51 10^6/uL (3.85-5.65); Red Cell Distribution Width 13.5 % (12.1-15.1)
[2023-11-18 08:10] LABS: Alanine Aminotransferase 9 U/L (0-41); Albumin Level 3.6 g/dL (3.5-5.2); Alkaline Phosphatase 62 U/L (40-130); Aspartate Amino Transferase 15 U/L (0-40); Blood Urea Nitrogen 20 mg/dL (8-23); Calcium 8.7 mg/dL (8.5-10.5); Carbon Dioxide 25 mmol/L (22-29); Chloride 105 mmol/L (98-107); Globulin 1.6 g/dL (1.3-4.6); Glucose 95 mg/dL (65-115); Osmolality Calculated 290 mOsm/kg (285-295); Sodium 139 mmol/L (136-145); Total Bilirubin 0.6 mg/dL (0.15-1.2); Total Protein 5.2 g/dL (6.6-8.7)
[2023-11-18 08:23] LABS: Anion Gap 12.8 (5-19); Creatinine Clr Calc Pharmacy 47.0078; Potassium 3.8 mmol/L (3.5-5.1)
[2023-11-18] MEDS: sodium chloride 0.9% 250 ML 75 ML IV (09:26)
[2023-11-18] MEDS: acetaminophen 325 mg Tablet 650 MG PO (09:30)
[2023-11-18] MEDS: diphenhydrAMINE 50 mg/mL SDV 1mL 25 MG IVP (09:30)
[2023-11-18] MEDS: ondansetron 2 mg/ML SDV 2 mL 8 MG IVP (09:34)
[2023-11-18] MEDS: famotidine 20 mg/2 mL INJ IVP (09:40)
[2023-11-18] MEDS: SODIUM CHLORIDE 0.9% IV (10:13)
[2023-11-18] MEDS: [UNRECOGNIZED DRUG - OTHER] IV (10:13)
[2023-11-18] MEDS: dextrose 5% 250 ML 75 ML IV (12:35)
[2023-11-18] MEDS: CARFILZOMIB IV (12:39)
[2023-11-18] MEDS: DEXTROSE 5% IV (12:39)
== END 2023-11-18 23:59 | disposition home or self-care (01) ==
PROVIDERS: Nurse Practitioner Family; PCP Family Medicine; Visit Provider Internal Medicine Medical Oncology
DX: Z51.11 Encounter for antineoplastic chemotherapy (principal); C90.02 Multiple myeloma in relapse; Z79.899 Other long term (current) drug therapy; Z51.12 Encounter for antineoplastic immunotherapy
CPT/HCPCS: 80053; 85025; 96375; 96413; 96415; 96417; A4222; J1200; J2405; J3490; J7050; J7060; J9047; J9227

== ENCOUNTER 2023-12-03 07:21 | Oncology outpatient (recurring) (ONCR) | payer MEDICARE, OTHER, SELFPAY ==
[2023-12-03 07:55] LABS: Basophils % 0.7 %; Eosinophils # 0.2 10^3/uL (0.0-0.8); Eosinophils % 2.6 %; Hematocrit 39.9 % (37-53); Lymphocytes # 1.5 10^3/uL (0.8-4.8); Lymphocytes % 26.1 %; Mean Corpuscular HGB Conc 34.3 g/dL (30-55); Mean Corpuscular Hemoglobin 35.9 pg (27-33); Mean Corpuscular Volume 104.5 fl (82-101); Mean Platelet Volume 10.6 fL (7.4-10.4); Monocytes # 0.5 10^3/uL (0.2-0.9); Monocytes % 9.2 %; Neutrophils # 3.59 10^3/uL (1.8-7.7); Neutrophils % 61.2 %; Nucleated Red Blood Cells % 0 %; Platelet Count 161 10^3/cmm (157-399); Red Blood Count 3.82 10^6/uL (3.85-5.65); Red Cell Distribution Width 13.2 % (12.1-15.1); White Blood Count 5.86 10^3/uL (3.29-11.43)
[2023-12-03 08:16] LABS: Alanine Aminotransferase 9 U/L (0-41); Albumin Level 3.8 g/dL (3.5-5.2); Alkaline Phosphatase 72 U/L (40-130); Aspartate Amino Transferase 13 U/L (0-40); Blood Urea Nitrogen 12 mg/dL (8-23); Calcium 8.8 mg/dL (8.5-10.5); Carbon Dioxide 23 mmol/L (22-29); Chloride 102 mmol/L (98-107); Globulin 2.1 g/dL (1.3-4.6); Glucose 103 mg/dL (65-115); Immunoglobulin IGA 81 mg/dL (70-400); Osmolality Calculated 284 mOsm/kg (285-295); Sodium 137 mmol/L (136-145); Total Bilirubin 0.7 mg/dL (0.15-1.2); Total Protein 5.9 g/dL (6.6-8.7)
[2023-12-03 08:17] LABS: Immunoglobulin IGG < 300 mg/dL (700-1600); Immunoglobulin IGM < 25 mg/dL (40-230)
[2023-12-03] MEDS: sodium chloride 0.9% 250 ML 45 ML IV (09:33)
[2023-12-03] MEDS: acetaminophen 325 mg Tablet 650 MG PO (09:33)
[2023-12-03] MEDS: diphenhydrAMINE 50 mg/mL SDV 1mL 25 MG IVP (09:36)
[2023-12-03] MEDS: famotidine 20 mg/2 mL INJ IVP (09:38)
[2023-12-03] MEDS: ondansetron 2 mg/ML SDV 2 mL 8 MG IVP (09:44)
[2023-12-03 09:46] VITALS: BMI 24.0
[2023-12-03] MEDS: SODIUM CHLORIDE 0.9% IV (09:56)
[2023-12-03] MEDS: [UNRECOGNIZED DRUG - OTHER] IV (09:56)
[2023-12-03 10:00] VITALS: BP 131/78; PULSE 67; RESP 16; TEMP 36.3; O2SAT 98
[2023-12-03 10:30] VITALS: BP 118/67; PULSE 69; RESP 17; TEMP 36.4; O2SAT 98
[2023-12-03 11:00] VITALS: BP 129/77; PULSE 70; RESP 16; TEMP 36.4; O2SAT 99
[2023-12-03 11:30] VITALS: BP 105/59; PULSE 81; RESP 16; TEMP 36.5; O2SAT 95
[2023-12-03] MEDS: dextrose 5% 250 ML 75 ML IV (12:33)
[2023-12-03] MEDS: CARFILZOMIB IV (12:34)
[2023-12-03] MEDS: DEXTROSE 5% IV (12:34)
[2023-12-03 13:20] VITALS: BP 136/69; PULSE 67; RESP 17; TEMP 36.9; O2SAT 99
[2023-12-05 07:19] LABS: PROTEIN, TOTAL 5.5 g/dL (6.1-8.1)
[2023-12-05 15:13] LABS: ABNORMAL PROTEIN BAND 1 0.1 g/dL (NONE DETECTED); ALBUMIN 3.6 g/dL (3.8-4.8); ALPHA 1 GLOBULIN 0.4 g/dL (0.2-0.3); ALPHA 2 GLOBULIN 0.7 g/dL (0.5-0.9); BETA 1 GLOBULIN 0.4 g/dL (0.4-0.6); BETA 2 GLOBULIN 0.3 g/dL (0.2-0.5); GAMMA GLOBULIN 0.2 g/dL (0.8-1.7)
[2023-12-06 10:34] LABS: KAPPA LIGHT CHAIN, FREE, SERUM 1.1 mg/L (3.3-19.4); KAPPA/LAMBDA LIGHT CHAINS FREE 0.39 (0.26-1.65); LAMBDA LIGHT CHAIN, FREE, SERU 2.8 mg/L (5.7-26.3)
== END 2023-12-03 23:59 | disposition home or self-care (01) ==
PROVIDERS: Nurse Practitioner Family; PCP Family Medicine; Visit Provider Internal Medicine Medical Oncology
DX: Z51.11 Encounter for antineoplastic chemotherapy (principal); C90.02 Multiple myeloma in relapse; Z79.899 Other long term (current) drug therapy; Z51.12 Encounter for antineoplastic immunotherapy
CPT/HCPCS: 80053; 82784; 83883; 84155; 84165; 85025; 96375; 96413; 96415; 96417; 99214; A4222; J1200; J2405; J3490; J7050; J7060; J9047; J9227

== ENCOUNTER 2023-12-16 07:20 | Oncology outpatient (recurring) (ONCR) | payer MEDICARE, OTHER, SELFPAY ==
[2023-12-16] VITALS (7 sets, daily range): BP systolic 115–139; BP diastolic 63–85; PULSE 67–86; RESP 16–17; TEMP 35.8–36.3; O2SAT 94–97
[2023-12-16 07:50] LABS: Basophils % 0.6 %; Eosinophils # 0.1 10^3/uL (0.0-0.8); Hematocrit 36.1 % (37-53); Lymphocytes # 1.5 10^3/uL (0.8-4.8); Lymphocytes % 29.6 %; Mean Corpuscular HGB Conc 34.1 g/dL (30-55); Mean Corpuscular Hemoglobin 35.2 pg (27-33); Mean Corpuscular Volume 103.4 fl (82-101); Mean Platelet Volume 10.7 fL (7.4-10.4); Monocytes # 0.5 10^3/uL (0.2-0.9); Monocytes % 10.2 %; Neutrophils # 2.93 10^3/uL (1.8-7.7); Neutrophils % 57.4 %; Nucleated Red Blood Cells % 0 %; Platelet Count 151 10^3/cmm (157-399); Red Blood Count 3.49 10^6/uL (3.85-5.65); Red Cell Distribution Width 13.2 % (12.1-15.1)
[2023-12-16 08:16] LABS: Alanine Aminotransferase 10 U/L (0-41); Albumin Level 3.7 g/dL (3.5-5.2); Alkaline Phosphatase 64 U/L (40-130); Anion Gap 12.1 (5-19); Aspartate Amino Transferase 15 U/L (0-40); Blood Urea Nitrogen 21 mg/dL (8-23); Calcium 8.7 mg/dL (8.5-10.5); Carbon Dioxide 25 mmol/L (22-29); Chloride 106 mmol/L (98-107); Creatinine Clr Calc Pharmacy 49.5873; Globulin 1.7 g/dL (1.3-4.6); Glucose 98 mg/dL (65-115); Osmolality Calculated 291 mOsm/kg (285-295); Potassium 4.1 mmol/L (3.5-5.1); Sodium 139 mmol/L (136-145); Total Bilirubin 0.6 mg/dL (0.15-1.2); Total Protein 5.4 g/dL (6.6-8.7)
[2023-12-16] MEDS: sodium chloride 0.9% 250 ML 75 ML IV (09:09)
[2023-12-16] MEDS: acetaminophen 325 mg Tablet 650 MG PO (09:12)
[2023-12-16] MEDS: diphenhydrAMINE 50 mg/mL SDV 1mL 25 MG IVP (09:13)
[2023-12-16] MEDS: ondansetron 2 mg/ML SDV 2 mL 8 MG IVP (09:17)
[2023-12-16] MEDS: famotidine 20 mg/2 mL INJ IVP (09:23)
[2023-12-16] MEDS: SODIUM CHLORIDE 0.9% IV (09:43)
[2023-12-16] MEDS: [UNRECOGNIZED DRUG - OTHER] IV (09:43)
[2023-12-16] MEDS: dextrose 5% 250 ML 75 ML IV (12:13)
[2023-12-16] MEDS: CARFILZOMIB IV (12:15)
[2023-12-16] MEDS: DEXTROSE 5% IV (12:15)
== END 2023-12-16 23:59 | disposition home or self-care (01) ==
LOC: ONCMED 07:21
PROVIDERS: Nurse Practitioner Family; PCP Family Medicine; Visit Provider Internal Medicine Medical Oncology
DX: Z79.899 Other long term (current) drug therapy; Z51.11 Encounter for antineoplastic chemotherapy; Z51.12 Encounter for antineoplastic immunotherapy; C90.02 Multiple myeloma in relapse
CPT/HCPCS: 80053; 85025; 96375; 96413; 96415; 96417; A4222; J1200; J2405; J3490; J7050; J7060; J9047; J9227

== ENCOUNTER 2023-12-30 07:15 | Oncology outpatient (recurring) (ONCR) | payer MEDICARE, OTHER, SELFPAY ==
[2023-12-30 07:53] LABS: Basophils % 0.4 %; Eosinophils # 0.1 10^3/uL (0.0-0.8); Eosinophils % 1.8 %; Hematocrit 36.8 % (37-53); Lymphocytes # 1.4 10^3/uL (0.8-4.8); Lymphocytes % 27.1 %; Mean Corpuscular HGB Conc 32.9 g/dL (30-55); Mean Corpuscular Hemoglobin 34.4 pg (27-33); Mean Corpuscular Volume 104.5 fl (82-101); Mean Platelet Volume 11.2 fL (7.4-10.4); Monocytes # 0.4 10^3/uL (0.2-0.9); Monocytes % 8.8 %; Neutrophils % 61.7 %; Nucleated Red Blood Cells % 0 %; Platelet Count 151 10^3/cmm (157-399); Red Blood Count 3.52 10^6/uL (3.85-5.65); Red Cell Distribution Width 13.2 % (12.1-15.1); White Blood Count 5.02 10^3/uL (3.29-11.43)
[2023-12-30 08:12] LABS: Alanine Aminotransferase 11 U/L (0-41); Albumin Level 3.5 g/dL (3.5-5.2); Alkaline Phosphatase 71 U/L (40-130); Anion Gap 10.2 (5-19); Aspartate Amino Transferase 14 U/L (0-40); Blood Urea Nitrogen 16 mg/dL (8-23); Calcium 8.7 mg/dL (8.5-10.5); Carbon Dioxide 26 mmol/L (22-29); Chloride 105 mmol/L (98-107); Globulin 1.9 g/dL (1.3-4.6); Glucose 101 mg/dL (65-115); Immunoglobulin IGA 88 mg/dL (70-400); Osmolality Calculated 285 mOsm/kg (285-295); Potassium 4.2 mmol/L (3.5-5.1); Sodium 137 mmol/L (136-145); Total Bilirubin 0.5 mg/dL (0.15-1.2); Total Protein 5.4 g/dL (6.6-8.7)
[2023-12-30 08:13] LABS: Immunoglobulin IGG < 300 mg/dL (700-1600); Immunoglobulin IGM < 25 mg/dL (40-230)
[2023-12-30] MEDS: acetaminophen 325 mg Tablet 650 MG PO (09:07)
[2023-12-30] MEDS: sodium chloride 0.9% 250 ML 75 ML IV (09:08)
[2023-12-30] MEDS: diphenhydrAMINE 50 mg/mL SDV 1mL 25 MG IVP (09:09)
[2023-12-30] MEDS: famotidine 20 mg/2 mL INJ IVP (09:15)
[2023-12-30] MEDS: ondansetron 2 mg/ML SDV 2 mL 8 MG IVP (09:19)
[2023-12-30] MEDS: SODIUM CHLORIDE 0.9% IV (09:47)
[2023-12-30] MEDS: [UNRECOGNIZED DRUG - OTHER] IV (09:47)
[2023-12-30 09:50] VITALS: BP 121/76; PULSE 75; RESP 18; TEMP 36.2; O2SAT 96
[2023-12-30 10:20] VITALS: BP 117/69; PULSE 69; RESP 18; TEMP 35.6; O2SAT 97
[2023-12-30 10:50] VITALS: BP 119/72; PULSE 66; RESP 18; TEMP 35.6
[2023-12-30 11:20] VITALS: BP 113/66; PULSE 77; RESP 18; TEMP 36.2; O2SAT 96
[2023-12-30] MEDS: DEXTROSE 5% IV (12:10)
[2023-12-30] MEDS: CARFILZOMIB IV (12:10)
[2023-12-30] MEDS: dextrose 5% 250 ML 75 ML IV (12:11)
[2023-12-30 13:00] VITALS: BP 116/64; PULSE 72; RESP 16; TEMP 36.8; O2SAT 97
[2023-12-31 15:39] LABS: ABNORMAL PROTEIN BAND 1 0.1 g/dL (NONE DETECTED); ALBUMIN 3.3 g/dL (3.8-4.8); ALPHA 1 GLOBULIN 0.3 g/dL (0.2-0.3); ALPHA 2 GLOBULIN 0.6 g/dL (0.5-0.9); BETA 1 GLOBULIN 0.3 g/dL (0.4-0.6); BETA 2 GLOBULIN 0.3 g/dL (0.2-0.5); GAMMA GLOBULIN 0.2 g/dL (0.8-1.7)
[2024-01-02 11:44] LABS: KAPPA LIGHT CHAIN, FREE, SERUM 0.8 mg/L (3.3-19.4); LAMBDA LIGHT CHAIN, FREE, SERU 2.7 mg/L (5.7-26.3)
== END 2023-12-30 23:59 | disposition home or self-care (01) ==
PROVIDERS: Nurse Practitioner Family; PCP Family Medicine; Visit Provider Internal Medicine Hematology & Oncology
DX: Z51.11 Encounter for antineoplastic chemotherapy (principal); C90.02 Multiple myeloma in relapse; Z79.899 Other long term (current) drug therapy; Z51.12 Encounter for antineoplastic immunotherapy; Z79.69 Long term (current) use of other immunomodulators and immunosuppressants; Z79.52 Long term (current) use of systemic steroids
CPT/HCPCS: 80053; 82784; 83883; 84155; 84165; 85025; 96375; 96413; 96415; 96417; 99214; A4222; J1200; J2405; J3490; J7050; J7060; J9047; J9227

== ENCOUNTER 2024-01-13 07:16 | Oncology outpatient (recurring) (ONCR) | payer MEDICARE, OTHER, SELFPAY ==
[2024-01-13] VITALS (7 sets, daily range): BP systolic 109–151; BP diastolic 63–87; PULSE 63–73; RESP 16–18; TEMP 35.8–36.6; O2SAT 95–99
[2024-01-13 07:56] LABS: Basophils % 0.4 %; Eosinophils # 0.1 10^3/uL (0.0-0.8); Eosinophils % 1.7 %; Hematocrit 36.9 % (37-53); Lymphocytes # 1.4 10^3/uL (0.8-4.8); Lymphocytes % 28.3 %; Mean Corpuscular HGB Conc 32.8 g/dL (30-55); Mean Corpuscular Hemoglobin 34.5 pg (27-33); Mean Corpuscular Volume 105.1 fl (82-101); Monocytes # 0.4 10^3/uL (0.2-0.9); Neutrophils # 2.88 10^3/uL (1.8-7.7); Neutrophils % 60.4 %; Nucleated Red Blood Cells % 0 %; Platelet Count 144 10^3/cmm (157-399); Red Blood Count 3.51 10^6/uL (3.85-5.65); Red Cell Distribution Width 13.7 % (12.1-15.1); White Blood Count 4.77 10^3/uL (3.29-11.43)
[2024-01-13 08:15] LABS: Alanine Aminotransferase 9 U/L (0-41); Albumin Level 3.5 g/dL (3.5-5.2); Alkaline Phosphatase 71 U/L (40-130); Anion Gap 12.9 (5-19); Aspartate Amino Transferase 13 U/L (0-40); Blood Urea Nitrogen 19 mg/dL (8-23); Calcium 8.3 mg/dL (8.5-10.5); Carbon Dioxide 25 mmol/L (22-29); Chloride 107 mmol/L (98-107); Creatinine Clr Calc Pharmacy 53.0106; Globulin 1.7 g/dL (1.3-4.6); Glucose 105 mg/dL (65-115); Osmolality Calculated 295 mOsm/kg (285-295); Potassium 3.9 mmol/L (3.5-5.1); Sodium 141 mmol/L (136-145); Total Bilirubin 0.5 mg/dL (0.15-1.2); Total Protein 5.2 g/dL (6.6-8.7)
[2024-01-13] MEDS: acetaminophen 325 mg Tablet 650 MG PO (09:04)
[2024-01-13] MEDS: sodium chloride 0.9% 250 ML 75 ML IV (09:04)
[2024-01-13] MEDS: diphenhydrAMINE 50 mg/mL SDV 1mL 25 MG IVP (09:05)
[2024-01-13] MEDS: ondansetron 2 mg/ML SDV 2 mL 8 MG IVP (09:09)
[2024-01-13] MEDS: famotidine 20 mg/2 mL INJ IVP (09:15)
[2024-01-13] MEDS: SODIUM CHLORIDE 0.9% IV (09:40)
[2024-01-13] MEDS: [UNRECOGNIZED DRUG - OTHER] IV (09:40)
[2024-01-13] MEDS: dextrose 5% 250 ML 75 ML IV (12:02)
[2024-01-13] MEDS: DEXTROSE 5% IV (12:11)
[2024-01-13] MEDS: CARFILZOMIB IV (12:11)
== END 2024-01-13 23:59 | disposition home or self-care (01) ==
LOC: ONCMED 07:17
PROVIDERS: Nurse Practitioner Family; PCP Family Medicine; Visit Provider Internal Medicine Hematology & Oncology
DX: Z51.11 Encounter for antineoplastic chemotherapy (principal); C90.02 Multiple myeloma in relapse; Z53.9 Procedure and treatment not carried out, unspecified reason; Z79.899 Other long term (current) drug therapy; C90.00 Multiple myeloma not having achieved remission
CPT/HCPCS: 36415; 80053; 85025; 96375; 96413; 96415; 96417; A4222; J1200; J2405; J3490; J7050; J7060; J9047; J9227

== ENCOUNTER 2024-01-27 07:15 | Oncology outpatient (recurring) (ONCR) | payer MEDICARE, OTHER, SELFPAY ==
[2024-01-27 07:52] LABS: Basophils % 0.4 %; Eosinophils # 0.1 10^3/uL (0.0-0.8); Eosinophils % 1.7 %; Hematocrit 36.5 % (37-53); Lymphocytes # 1.7 10^3/uL (0.8-4.8); Lymphocytes % 32.5 %; Mean Corpuscular HGB Conc 33.7 g/dL (30-55); Mean Corpuscular Hemoglobin 34.9 pg (27-33); Mean Corpuscular Volume 103.7 fl (82-101); Mean Platelet Volume 11.4 fL (7.4-10.4); Monocytes # 0.6 10^3/uL (0.2-0.9); Monocytes % 11.2 %; Neutrophils # 2.84 10^3/uL (1.8-7.7); Nucleated Red Blood Cells % 0 %; Platelet Count 151 10^3/cmm (157-399); Red Blood Count 3.52 10^6/uL (3.85-5.65); Red Cell Distribution Width 13.6 % (12.1-15.1); White Blood Count 5.26 10^3/uL (3.29-11.43)
[2024-01-27 08:10] LABS: Alanine Aminotransferase 9 U/L (0-41); Albumin Level 3.8 g/dL (3.5-5.2); Alkaline Phosphatase 64 U/L (40-130); Anion Gap 12.7 (5-19); Aspartate Amino Transferase 13 U/L (0-40); Blood Urea Nitrogen 23 mg/dL (8-23); Calcium 8.4 mg/dL (8.5-10.5); Carbon Dioxide 25 mmol/L (22-29); Chloride 104 mmol/L (98-107); Creatinine Clr Calc Pharmacy 49.1438; Globulin 1.5 g/dL (1.3-4.6); Glucose 96 mg/dL (65-115); Immunoglobulin IGA 100 mg/dL (70-400); Osmolality Calculated 290 mOsm/kg (285-295); Potassium 3.7 mmol/L (3.5-5.1); Sodium 138 mmol/L (136-145); Total Bilirubin 0.6 mg/dL (0.15-1.2); Total Protein 5.3 g/dL (6.6-8.7)
[2024-01-27 08:25] LABS: Immunoglobulin IGM < 25 mg/dL (40-230)
[2024-01-27] MEDS: sodium chloride 0.9% 250 ML 75 ML IV (10:02)
[2024-01-27] MEDS: acetaminophen 325 mg Tablet 650 MG PO (10:03)
[2024-01-27] MEDS: ondansetron 2 mg/ML SDV 2 mL 8 MG IVP (10:03)
[2024-01-27] MEDS: famotidine 20 mg/2 mL INJ IVP (10:07)
[2024-01-27] MEDS: diphenhydrAMINE 50 mg/mL SDV 1mL 25 MG IVP (10:09)
[2024-01-27] MEDS: SODIUM CHLORIDE 0.9% IV (10:21)
[2024-01-27] MEDS: [UNRECOGNIZED DRUG - OTHER] IV (10:21)
[2024-01-27 10:22] VITALS: BP 138/81; PULSE 65; RESP 16; TEMP 35.9; O2SAT 92
[2024-01-27 10:55] VITALS: BP 117/76; PULSE 63; RESP 16; TEMP 36; O2SAT 94
[2024-01-27 11:25] VITALS: BP 122/75; PULSE 74; RESP 16; TEMP 36.2; O2SAT 97
[2024-01-27 11:57] VITALS: BP 132/76; PULSE 72; RESP 16; TEMP 36.2; O2SAT 96
[2024-01-27 12:33] LABS: Immunoglobulin IGG 158 mg/dL (700-1600)
[2024-01-27 12:45] VITALS: BP 121/71; PULSE 72; RESP 16; TEMP 35.8; O2SAT 96
[2024-01-27] MEDS: dextrose 5% 250 ML 75 ML IV (12:52)
[2024-01-27] MEDS: CARFILZOMIB IV (13:00)
[2024-01-27] MEDS: DEXTROSE 5% IV (13:00)
[2024-01-27 13:46] VITALS: BP 117/68; PULSE 66; RESP 18; TEMP 36.1; O2SAT 98
[2024-01-29 09:15] LABS: ABNORMAL PROTEIN BAND 1 0.2 g/dL (NONE DETECTED); ALBUMIN 3.4 g/dL (3.8-4.8); ALPHA 1 GLOBULIN 0.3 g/dL (0.2-0.3); ALPHA 2 GLOBULIN 0.6 g/dL (0.5-0.9); BETA 1 GLOBULIN 0.3 g/dL (0.4-0.6); BETA 2 GLOBULIN 0.2 g/dL (0.2-0.5); GAMMA GLOBULIN 0.2 g/dL (0.8-1.7)
[2024-01-31 15:04] LABS: KAPPA/LAMBDA LIGHT CHAINS FREE 0.29 (0.26-1.65); LAMBDA LIGHT CHAIN, FREE, SERU 3.5 mg/L (5.7-26.3)
== END 2024-01-27 23:59 | disposition home or self-care (01) ==
PROVIDERS: Nurse Practitioner Family; PCP Family Medicine; Visit Provider Internal Medicine Hematology & Oncology
DX: Z51.11 Encounter for antineoplastic chemotherapy (principal); Z79.899 Other long term (current) drug therapy; Z51.12 Encounter for antineoplastic immunotherapy; C91.02 Acute lymphoblastic leukemia, in relapse
CPT/HCPCS: 80053; 82784; 83883; 84155; 84165; 85025; 96375; 96413; 96415; 96417; 99214; A4222; J1200; J2405; J3490; J7050; J7060; J9047; J9227

== ENCOUNTER 2024-01-29 08:04 | Outpatient (CLI) | payer MEDICARE, OTHER, SELFPAY ==
[2024-01-31 04:00] LABS: CREATININE, 24 HOUR URINE 1.36 g/24 h (0.50-2.15); PROTEIN, TOTAL, 24 HR UR 100 mg/24 h (<150); Protein/Creatinine Ratio 0.074 (<0.100); Protein/Creatinine Ratio 74 mg/g creat (<100)
== END 2024-01-29 08:05 | disposition home or self-care (01) ==
LOC: LAB 08:05
PROVIDERS: Internal Medicine Hematology & Oncology; PCP Family Medicine; Visit Provider Nurse Practitioner Family
DX: C90.02 Multiple myeloma in relapse (principal)
CPT/HCPCS: 84156; 84166

== ENCOUNTER → 2024-01-31 08:10 | Outpatient (BNVA) | payer MEDICARE, OTHER, SELFPAY | PROVIDERS: PCP Family Medicine; Visit Provider Nurse Practitioner Family | DX: L57.0 Actinic keratosis (principal); D48.5 Neoplasm of uncertain behavior of skin; B07.8 Other viral warts; L57.8 Other skin changes due to chronic exposure to nonionizing radiation | CPT/HCPCS: 11102; 17004; 17110; 99213 ==

== ENCOUNTER 2024-02-10 07:17 | Oncology outpatient (recurring) (ONCR) | payer MEDICARE, OTHER, SELFPAY ==
[2024-02-10 07:35] LABS: Basophils % 0.4 %; Eosinophils # 0.1 10^3/uL (0.0-0.8); Eosinophils % 1.9 %; Hematocrit 37.2 % (37-53); Lymphocytes # 1.6 10^3/uL (0.8-4.8); Lymphocytes % 30.6 %; Mean Corpuscular HGB Conc 32.8 g/dL (30-55); Mean Corpuscular Hemoglobin 34.2 pg (27-33); Mean Corpuscular Volume 104.2 fl (82-101); Mean Platelet Volume 10.5 fL (7.4-10.4); Monocytes # 0.6 10^3/uL (0.2-0.9); Monocytes % 10.6 %; Neutrophils # 2.91 10^3/uL (1.8-7.7); Neutrophils % 56.3 %; Nucleated Red Blood Cells % 0 %; Platelet Count 155 10^3/cmm (157-399); Red Blood Count 3.57 10^6/uL (3.85-5.65); Red Cell Distribution Width 13.7 % (12.1-15.1); White Blood Count 5.17 10^3/uL (3.29-11.43)
[2024-02-10 07:52] LABS: Alanine Aminotransferase 10 U/L (0-41); Albumin Level 3.6 g/dL (3.5-5.2); Alkaline Phosphatase 63 U/L (40-130); Anion Gap 13.9 (5-19); Aspartate Amino Transferase 14 U/L (0-40); Blood Urea Nitrogen 14 mg/dL (8-23); Calcium 8.5 mg/dL (8.5-10.5); Carbon Dioxide 24 mmol/L (22-29); Chloride 105 mmol/L (98-107); Globulin 1.7 g/dL (1.3-4.6); Glucose 109 mg/dL (65-115); Lactate Dehydrogenase 221 U/L (135-225); Osmolality Calculated 289 mOsm/kg (285-295); Potassium 3.9 mmol/L (3.5-5.1); Sodium 139 mmol/L (136-145); Total Bilirubin 0.6 mg/dL (0.15-1.2); Total Protein 5.3 g/dL (6.6-8.7)
[2024-02-10] MEDS: acetaminophen 325 mg Tablet 650 MG PO (08:30)
[2024-02-10] MEDS: sodium chloride 0.9% 250 ML 75 ML IV (08:30)
[2024-02-10] MEDS: diphenhydrAMINE 50 mg/mL SDV 1mL 25 MG IVP (08:31)
[2024-02-10] MEDS: famotidine 20 mg/2 mL INJ IVP (08:34)
[2024-02-10] MEDS: ondansetron 2 mg/ML SDV 2 mL 8 MG IVP (08:37)
[2024-02-10] MEDS: SODIUM CHLORIDE 0.9% IV (09:04)
[2024-02-10] MEDS: [UNRECOGNIZED DRUG - OTHER] IV (09:04)
[2024-02-10 09:35] VITALS: BP 119/80; PULSE 78; RESP 16; TEMP 36; O2SAT 99
[2024-02-10 10:09] VITALS: BP 109/78; PULSE 85; RESP 16; TEMP 36.3; O2SAT 99
[2024-02-10 10:40] VITALS: BP 112/73; PULSE 85; RESP 16; TEMP 36.2; O2SAT 94
[2024-02-10 11:26] VITALS: BP 115/72; PULSE 82; RESP 16; TEMP 35.9; O2SAT 96
[2024-02-10] MEDS: dextrose 5% 250 ML 75 ML IV (11:34)
[2024-02-10] MEDS: CARFILZOMIB IV (11:43)
[2024-02-10] MEDS: DEXTROSE 5% IV (11:43)
[2024-02-10 12:27] VITALS: BP 125/73; PULSE 73; RESP 16; TEMP 35.8; O2SAT 96
== END 2024-02-10 23:59 | disposition home or self-care (01) ==
LOC: ONCMED 07:17
PROVIDERS: PCP Family Medicine; Visit Provider Internal Medicine Hematology & Oncology
DX: Z51.11 Encounter for antineoplastic chemotherapy (principal); C90.02 Multiple myeloma in relapse; Z79.899 Other long term (current) drug therapy; Z51.12 Encounter for antineoplastic immunotherapy
CPT/HCPCS: 80053; 83615; 85025; 96375; 96413; 96415; 96417; A4222; J1200; J2405; J3490; J7050; J7060; J9047; J9227

== ENCOUNTER 2024-02-24 07:21 | Oncology outpatient (recurring) (ONCR) | payer MEDICARE, OTHER, SELFPAY ==
[2024-02-24 08:09] LABS: Basophils % 0.5 %; Eosinophils # 0.1 10^3/uL (0.0-0.8); Eosinophils % 1.7 %; Hematocrit 37.3 % (37-53); Lymphocytes # 1.5 10^3/uL (0.8-4.8); Lymphocytes % 23.4 %; Mean Corpuscular HGB Conc 32.7 g/dL (30-55); Mean Corpuscular Hemoglobin 33.9 pg (27-33); Mean Corpuscular Volume 103.6 fl (82-101); Mean Platelet Volume 11.5 fL (7.4-10.4); Monocytes # 0.7 10^3/uL (0.2-0.9); Monocytes % 11.6 %; Neutrophils # 3.93 10^3/uL (1.8-7.7); Neutrophils % 62.5 %; Nucleated Red Blood Cells % 0 %; Platelet Count 160 10^3/cmm (157-399); Red Cell Distribution Width 13.8 % (12.1-15.1); White Blood Count 6.29 10^3/uL (3.29-11.43)
[2024-02-24 08:16] LABS: Alanine Aminotransferase 9 U/L (0-41); Albumin Level 3.6 g/dL (3.5-5.2); Alkaline Phosphatase 68 U/L (40-130); Anion Gap 13.8 (5-19); Aspartate Amino Transferase 12 U/L (0-40); Blood Urea Nitrogen 20 mg/dL (8-23); Calcium 8.8 mg/dL (8.5-10.5); Carbon Dioxide 24 mmol/L (22-29); Chloride 105 mmol/L (98-107); Creatinine Clr Calc Pharmacy 46.1764; Globulin 1.8 g/dL (1.3-4.6); Glucose 96 mg/dL (65-115); Immunoglobulin IGA 179 mg/dL (70-400); Lactate Dehydrogenase 234 U/L (135-225); Osmolality Calculated 290 mOsm/kg (285-295); Potassium 3.8 mmol/L (3.5-5.1); Sodium 139 mmol/L (136-145); Total Bilirubin 0.7 mg/dL (0.15-1.2); Total Protein 5.4 g/dL (6.6-8.7)
[2024-02-24 08:19] LABS: Immunoglobulin IGM < 25 mg/dL (40-230)
[2024-02-24 08:32] LABS: Immunoglobulin IGG 137 mg/dL (700-1600)
[2024-02-24] MEDS: sodium chloride 0.9% 250 ML 75 ML IV (09:12)
[2024-02-24] MEDS: acetaminophen 325 mg Tablet 650 MG PO (09:13)
[2024-02-24] MEDS: famotidine 20 mg/2 mL INJ IVP (09:16)
[2024-02-24] MEDS: diphenhydrAMINE 50 mg/mL SDV 1mL 25 MG IVP (09:19)
[2024-02-24] MEDS: ondansetron 2 mg/ML SDV 2 mL 8 MG IVP (09:22)
[2024-02-24] MEDS: [UNRECOGNIZED DRUG - OTHER] IV (10:00)
[2024-02-24] MEDS: SODIUM CHLORIDE 0.9% IV (10:00)
[2024-02-24 10:04] VITALS: BP 107/63; PULSE 81; RESP 16; TEMP 36.2; O2SAT 94
[2024-02-24 10:34] VITALS: BP 113/67; PULSE 81; RESP 16; TEMP 35.9; O2SAT 96
[2024-02-24 11:04] VITALS: BP 121/73; PULSE 83; RESP 16; TEMP 36.2; O2SAT 96
[2024-02-24 11:34] VITALS: BP 121/78; PULSE 79; RESP 16; TEMP 36; O2SAT 98
[2024-02-24 12:26] VITALS: BP 125/76; PULSE 79; RESP 16; TEMP 36; O2SAT 95
[2024-02-24] MEDS: dextrose 5% 250 ML 35 ML IV (12:34)
[2024-02-24] MEDS: DEXTROSE 5% IV (12:38)
[2024-02-24] MEDS: CARFILZOMIB IV (12:38)
[2024-02-24 13:34] VITALS: BP 144/67; PULSE 80; RESP 17; TEMP 36; O2SAT 96
[2024-02-25 06:43] LABS: PROTEIN, TOTAL 5.1 g/dL (6.1-8.1)
[2024-02-26 12:14] LABS: ABNORMAL PROTEIN BAND 1 0.2 g/dL (NONE DETECTED); ALBUMIN 3.3 g/dL (3.8-4.8); ALPHA 1 GLOBULIN 0.3 g/dL (0.2-0.3); ALPHA 2 GLOBULIN 0.6 g/dL (0.5-0.9); BETA 1 GLOBULIN 0.3 g/dL (0.4-0.6); BETA 2 GLOBULIN 0.3 g/dL (0.2-0.5); GAMMA GLOBULIN 0.3 g/dL (0.8-1.7)
[2024-02-26 14:29] LABS: KAPPA LIGHT CHAIN, FREE, SERUM 0.8 mg/L (3.3-19.4); LAMBDA LIGHT CHAIN, FREE, SERU 8.1 mg/L (5.7-26.3)
== END 2024-02-24 23:59 | disposition home or self-care (01) ==
PROVIDERS: PCP Family Medicine; Visit Provider Internal Medicine Hematology & Oncology
DX: Z51.11 Encounter for antineoplastic chemotherapy (principal); Z79.899 Other long term (current) drug therapy; C90.01 Multiple myeloma in remission; Z51.12 Encounter for antineoplastic immunotherapy; Z95.828 Presence of other vascular implants and grafts
CPT/HCPCS: 80053; 82784; 83615; 83883; 84155; 84165; 85025; 86334; 96375; 96413; 96415; 96417; 99214; A4222; J1200; J2405; J3490; J7050; J7060; J9047; J9227

== ENCOUNTER 2024-02-29 11:01 | Inpatient (IN) | payer MEDICARE, OTHER, SELFPAY ==
[2024-02-29] VITALS (26 sets, daily range): BP systolic 108–164; BP diastolic 68–110; PULSE 12–110; RESP 13–29; TEMP 36.7–36.8; O2SAT 90–99; BMI 23.7; BMI 22.5
--- NOTE | 2024-02-29 12:04 | ECG_ITS ---
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 Measurements Intervals [place] Rate: 90 P: 58 DE: 174 QRS: 58 QRSD: 105 T: 91 QT: 362 QTc: 445 Interpretive Statements SINUS RHYTHM POSSIBLE LEFT ATRIAL ENLARGEMENT [-0.1mV P-WAVE IN V1/V2] NONSPECIFIC T-WAVE ABNORMALITY No previous ECG available for comparison Electronically Signed On 03-01-2024 18:52:30 TRIMMER BUFFING WHEEL by Gurvinder Murphy M.D. [email or web address]
--- NOTE | 2024-02-29 12:21 | ED_ITS ---
HPI - SOB/Dyspnea 2 General: Chief Complaint: Shortness of Breath/Dyspnea Stated Complaint: Sob, (urgent care reff) Time Seen by Provider: 02/29/24 12:09 History of Present Illness: HPI Narrative: Patient sent over from urgent care for possible PE. Patient complains of shortness of breath over the last 3 to 4 weeks and some right posterior rib pain. Patient is on chemotherapy for multiple myeloma. He states that the chemotherapy can cause some chest wall pain and he is already talked to his oncologist about this but this is little bit different. Patient normally is not short of breath at all with talking and can exert himself before he becomes short of breath. However in the last 3 to 4 weeks he noticed he has become short of breath with talking and with almost any exertion. Patient has not ever had a blood clot before. Patient denies any coughs colds fevers chills or other overt signs of sickness. Related Data Home Medications Medication Instructions Recorded Confirmed acetaminophen 325 mg tablet 325 - 650 mg PO QID PRN Pain 06/02/20 02/29/24 (Tylenol) acyclovir 400 mg tablet 400 mg PO BID 02/29/24 02/29/24 carfilzomib 10 mg intravenous 10 mg IV DIRECTED 02/29/24 02/29/24 solution dexamethasone 4 mg tablet 20 mg PO DIRECTED 02/29/24 02/29/24 isatuximab-irfc 20 mg/mL 20 mg IV DIRECTED 02/29/24 02/29/24 intravenous solution Previous Rx's Medication Instructions Recorded zolpidem 5 mg tablet 5 mg PO .qhs PRN insomnia from 12/09/23 medication #30 tabs Allergies Allergy/AdvReac Type Severity Reaction Status Date / Time No Known Allergies Allergy Verified 02/29/24 10:02 Review of Systems 2 General: Reports: 10 or more systems reviewed and unremarkable except in HPI and below PFSH ED 2 PFSH: Medical History Multiple myeloma Surgical History Port-A-Cath in place 08/17/22 Dr. Sherwood Hx of colonoscopy S/P ORIF (open reduction internal fixation) fracture (08/2020) ORIF of right clavicle fracture Family History Grandfather Stroke Denies family history of Diabetes CAD (coronary artery disease) Clotting disorder Dementia Hyperlipidemia Psychiatric illness Chronic kidney disease (CKD) Suicide Anesthesia complication Bleeding disorder Lung disease Cancer Hypertension Social History Smoking and tobacco/nicotine status: never used tobacco/nicotine Alcohol intake: never Physical Exam 2 Const: COMMON NORMALS: no acute distress, average body habitus, patient oriented x3, no limitations, healthy appearing, alert and well nourished HENMT: COMMON NORMALS: normocephalic, atraumatic, hearing grossly normal bilaterally, external ears normal, Normal external nose present and moist oral mucous membranes HEAD & SCALP: normocephalic and atraumatic NOSE: Normal external nose present EXTERNAL EAR: Yes external ears normal Neck/C-Spine: COMMON NORMALS: no JVD Chest: COMMONS NORMALS: normal inspection of the chest and normal palpation of entire chest wall Resp: COMMON NORMALS: normal respiratory effort, No retractions, No use of accessory muscles and clear to auscultation bilaterally AUSCULTATION: clear to auscultation bilaterally Cardio: COMMON NORMALS: no JVD, regular rate, regular rhythm, S1 normal heart sound present, S2 normal heart sound present, No gallops present (Cardio), No clicks present (Cardio), No murmurs present (Cardio) and No rub (Cardio) R ATE: regular rate RHYTHM: regular rhythm HEART SOUNDS: S1 normal heart sound present and S2 normal heart sound present GI: COMMON NORMALS: Normal to inspection, nondistended, normoactive bowel sounds present, Soft to palpation, non-tender, No hepatosplenomegaly present and no masses PALPATION: Yes Soft to palpation and Yes No hepatosplenomegaly present Neuro: COMMON NORMALS: patient oriented x3 SENSORIUM/ORIENTATION: Yes alert Course 2 Vital Signs: Vital signs: Vital Signs Temperature 98.2 F 02/29/24 11:33 Pulse Rate 96 02/29/24 14:51 Respiratory Rate 17 02/29/24 14:51 Blood Pressure 140/94 02/29/24 14:51 Pulse Oximetry 95 02/29/24 14:51 Oxygen Delivery Me thod Room Air 02/29/24 14:51 MDM - SOB/Dyspnea Medical Decision Making These results with Dr. Rivera due to the new onset CHF, elevated troponin, elevated BNP worsening kidney function we will admit the patient to [facility] for further evaluation and treatment. Medical Records I reviewed the patient's medical records. Lab Data I reviewed the patient's lab results. 02/29/24 12:17 02/29/24 12:17 Labs/Radiology: Radiology Impressions Chest CTA 02/29/24 12:57 IMPRESSION: 1. Moderate bilateral pleural effusions with adjacent compressive atelectasis or pneumonia. In combination with cardiomegaly, findings are consistent with congestive heart failure. 2. Nonspecific intermediate density lesion in the left hepatic lobe measures 2.5 cm in the AP dimension similar to the prior CT scan. This cannot be further characterized on this examination. Laboratory Results WBC 6.29 10^3/uL (3.29-11.43) 02/29/24 12:17 RBC 3.99 10^6/uL (3.85-5.65) 02/29/24 12:17 Hgb 13.70 g/dL (11.27-16.99) 02/29/24 12:17 Hct 41.5 % (37-53) 02/29/24 12:17 MCV 104.0 fl (82-101) H 02/29/24 12:17 MCH 34.3 pg (27-33) H 02/29/24 12:17 MCHC 33.0 g/dL (30-55) 02/29/24 12:17 RDW 14.0 % (12.1-15.1) 02/29/24 12:17 Plt Count 83 10^3/cmm (157-399) L 02/29/24 12:17 MPV 12.4 fL (7.4-10.4) H 02/29/24 12:17 Neut % (Auto) 67.7 % 02/29/24 12:17 Lymph % (Auto) 18.9 % 02/29/24 12:17 [place] % (Auto) 11.8 % 02/29/24 12:17 Eos % (Auto) 0.6 % 02/29/24 12:17 Baso % (Auto) 0.2 % 02/29/24 12:17 Neut # (Auto) 4.26 10^3/uL (1.8-7.7) 02/29/24 12:17 Lymph # (Auto) 1.2 10^3/uL (0.8-4.8) 02/29/24 12:17 [place]hea # (Auto) 0.7 10^3/uL (0.2-0.9) 02/29/24 12:17 Eos # (Auto) 0.0 10^3/uL (0.0-0.8) 02/29/24 12:17 Baso # (Auto) 0.0 10^3/uL (0.0-0.1) 02/29/24 12:17 Nucleated RBC % (auto) 0.8 % 02/29/24 12:17 Nucleated RBCs # 0.1 /100WBC 02/29/24 12:17 D-Dimer 4.17 ug/mLFEU (0-0.59) H 02/29/24 12:17 Sodium 141 mmol/L (136-145) 02/29/24 12:17 Potassium 4.6 mmol/L (3.5-5.1) 02/29/24 12:17 Chloride 105 mmol/L (98-107) 02/29/24 12:17 Carbon Dioxide 23 mmol/L (22-29) 02/29/24 12:17 Anion Gap 17.6 (5-19) 02/29/24 12:17 BUN 31 mg/dL (8-23) H 02/29/24 12:17 Creatinine 1.7 mg/dL (0.7-1.2) H 02/29/24 12:17 GFR Calculation Not Reportable 02/29/24 12:17 Glucose 105 mg/dL (65-115) 02/29/24 12:17 Calculated Osmolality 299 mOsm/kg (285-295) H 02/29/24 12:17 Calcium 9.2 mg/dL (8.5-10.5) 02/29/24 12:17 Total Bilirubin 1.2 mg/dL (0.15-1.2) 02/29/24 12:17 AST 22 U/L (0-40) 02/29/24 12:17 ALT 33 U/L (0-41) 02/29/24 12:17 Alkaline Phosphatase 83 U/L (40-130) 02/29/24 12:17 Troponin T Baseline 136 ng/L (0-15) H* 02/29/24 12:17 Troponin T 120 Minute 120.0 ng/L (0-15) H 02/29/24 14:14 Delta Troponin T -16.0 ABS# (0-10) L 02/29/24 14:14 NT-Pro-B Natriuret Pep 93353 pg/mL (0-125) H 02/29/24 14:14 Total Protein 5.5 g/dL (6.6-8.7) L 02/29/24 12:17 Albumin 4.0 g/dL (3.5-5.2) 02/29/24 12:17 Globulin 1.5 g/dL (1.3-4.6) 02/29/24 12:17 All radiology interpretation(s) finalized by discharge Discharge Plan Discharge Patient Disposition: Admitted As Inpatient Clinical Impression: Congestive heart failure, Acute on chronic renal insufficiency, Elevated troponin, Multiple myeloma Condition: Stable Coding Level of Care Code ED Director Informatics for Cornelius Joy
[2024-02-29 12:25] LABS: Basophils % 0.2 %; Eosinophils % 0.6 %; Hematocrit 41.5 % (37-53); Lymphocytes # 1.2 10^3/uL (0.8-4.8); Lymphocytes % 18.9 %; Mean Corpuscular Hemoglobin 34.3 pg (27-33); Mean Platelet Volume 12.4 fL (7.4-10.4); Monocytes # 0.7 10^3/uL (0.2-0.9); Monocytes % 11.8 %; Neutrophils # 4.26 10^3/uL (1.8-7.7); Neutrophils % 67.7 %; Nucleated Red Blood Cells # 0.1 /100WBC; Nucleated Red Blood Cells % 0.8 %; Platelet Count 83 10^3/cmm (157-399); Red Blood Count 3.99 10^6/uL (3.85-5.65); White Blood Count 6.29 10^3/uL (3.29-11.43)
[2024-02-29 12:50] LABS: Alanine Aminotransferase 33 U/L (0-41); Alkaline Phosphatase 83 U/L (40-130); Anion Gap 17.6 (5-19); Aspartate Amino Transferase 22 U/L (0-40); Blood Urea Nitrogen 31 mg/dL (8-23); Calcium 9.2 mg/dL (8.5-10.5); Carbon Dioxide 23 mmol/L (22-29); Chloride 105 mmol/L (98-107); Creatinine Clr Calc Pharmacy 43.4601; D Dimer 4.17 ug/mLFEU (0-0.59); Globulin 1.5 g/dL (1.3-4.6); Glucose 105 mg/dL (65-115); Osmolality Calculated 299 mOsm/kg (285-295); Potassium 4.6 mmol/L (3.5-5.1); Sodium 141 mmol/L (136-145); Total Bilirubin 1.2 mg/dL (0.15-1.2); Total Protein 5.5 g/dL (6.6-8.7)
[2024-02-29 12:55] LABS: Troponin(5th) Baseline 136 ng/L (0-15)
--- NOTE | 2024-02-29 12:57 | CTR_ITS ---
PROCEDURE INFORMATION: Exam: CTA Chest With Contrast Exam date and time: 02/29/2024 1:20 PM Age: 73 years old Clinical indication: Shortness of breath; Patient HX: HX multiple myeloma; Additional info: Shortness of breath, elevated d-dimer TECHNIQUE: Imaging protocol: Computed tomographic angiography of the chest with contrast. Exam focused on the arteries. 3D rendering (Not supervised by radiologist): MIP and/or 3D reconstructed images were created by the technologist. Radiation optimization: All CT scans at this facility use at least one of these dose optimization techniques: automated exposure control; mA and/or kV adjustment per patient size (includes targeted exams where dose is matched to clinical indication); or iterative reconstruction. Contrast material: OMNI 350; Contrast volume: 100 ml; Contrast route: INTRAVENOUS (IV); COMPARISON: CT chest w con* [id number] 06/02/2020 12:31 PM RADIATION DOSE METRICS: Total DLP (mGy-cm): 388.11 FINDINGS: Pulmonary arteries: Normal. No pulmonary emboli. Aorta: Unremarkable. No aortic aneurysm. No aortic dissection. Lungs: See Pleural spaces finding. Pleural spaces: Moderate bilateral pleural effusions with adjacent compressive atelectasis or pneumonia. Heart: Cardiomegaly. Coronary arteries: Multivessel atherosclerotic disease which involves the coronary arteries. Lymph nodes: Unremarkable. No enlarged lymph nodes. Liver: Nonspecific intermediate density lesion in the left hepatic lobe measures 2.5 cm in the AP dimension similar to the prior CT scan. This cannot be further characterized on this examination. Bones/joints: Old right clavicular fracture partially visualized. Soft tissues: Unremarkable. CT/CT angio chest PE protcl [id number] IMPRESSION: 1. Moderate bilateral pleural effusions with adjacent compressive atelectasis or pneumonia. In combination with cardiomegaly, findings are consistent with congestive heart failure. 2. Nonspecific intermediate density lesion in the left hepatic lobe measures 2.5 cm in the AP dimension similar to the prior CT scan. This cannot be further characterized on this examination.
[2024-02-29] MEDS: iohexol 350 mg/mL 500 mL Btl (per mL) IV (13:29)
--- NOTE | 2024-02-29 13:40 | ECG_ITS ---
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 Measurements Intervals [place] Rate: 101 P: 62 PA: 159 QRS: 56 QRSD: 128 T: 91 QT: 383 QTc: 497 Interpretive Statements SINUS TACHYCARDIA POSSIBLE LEFT ATRIAL ENLARGEMENT [-0.1mV P-WAVE IN V1/V2] MODERATE INTRAVENTRICULAR CONDUCTION DELAY [110+ ms QRS DURATION] Compared to ECG 02/29/2024 12:04:25 Intraventricular conduction delay now present Sinus rhythm no longer present T-wave abnormality no longer present Electronically Signed On 03-01-2024 19:03:45 HAND WRAPPER OPERATOR by Gurvinder Murphy M.D. [id number]
[2024-02-29 14:59] LABS: NT Pro B Type Natriuretic Pept 22615 pg/mL (0-125)
[2024-02-29] MEDS: FUROsemide 10 mg/mL SDV 2mL 20 MG IVP (16:28)
--- NOTE | 2024-02-29 16:28 | P.HP_ITS ---
Providers/Chief Complaint 2 Admitting Physician: Ozzy Headley MD Primary Care Provider: Ede Prado DO Chief Complaint: Sob, (urgent care reff) History of Present Illness Nick Sheldon is a 73 year old male with past medical history of multiple myeloma on chemotherapy, CKD who was sent into the ER from urgent care with concerns for chest pain to rule out pulmonary embolism. CTA was done which was negative for PE. As per patient he started having difficulty in breathing more so on exertion for last 4 weeks and difficulty in breathing on laying down over last 1 week with episodes of congestion, choking specially when he sleeping at night over last 3 to 4 days. He feels as if he is struggling to breathe. Denies any nausea, ting, headache. States he usually has chest pain in and around chemotherapy but denies any chest pain on exertion recently. Review of Systems 2 General: Reports: 10 or more systems reviewed and unremarkable except in HPI and below Const: Denies: fever(s), chills, body aches, change in appetite, change in weight, malaise, night sweats, diaphoresis, change in sleep pattern, daytime sleepiness or snoring Eyes: Denies: change in vision, blurry vision, photophobia, eye discomfort or eye discharge ENMT: Denies: throat pain, enlarged tonsils, hoarseness, mouth pain, oral sores, dry mouth, tinnitus, nasal congestion or post nasal drip Card: Denies: chest pain, palpitations, irregular heart rhythm, edema, swelling of feet/ankles, lightheadedness, syncope, pre-syncope, dyspnea on exertion, orthopnea, leg pain with exertion or acrocyanosis Resp: Denies: dyspnea, productive cough, non-productive cough, wheezing, stridor, pain on inspiration, change in phlegm color, hemoptysis or chest congestion GI: Denies: abdominal pain, nausea, vomiting, hematemesis, coffee ground emesis, dysphagia, heartburn, diarrhea, constipation, bloating, GI cramping, change in bowel habits, pain on defecation, hematochezia or melena : Denies: flank pain, difficulty urinating, dysuria, urinary frequency, urinary urgency, urinary hesitancy, urinary dribbling, difficulty starting urination, change in urine stream, nocturia or hematuria Musc: Denies: neck pain, back pain, extremity pain, joint pain, joint swelling, joint redness, joint stiffness or limited range of motion Neuro: Denies: headache(s), numbness in extremities, weakness in extremities, sensory changes, lack of coordination, difficulty walking, frequent falls, dizziness, vertigo, confusion, Slurred speech present, difficulty communicating thoughts or seizure-like activity Psych: Denies: anxiety, depression, mood swings, panic attacks, hopelessness or irritability Endo: Denies: polyuria, polydipsia, tired all the time, cold intolerance, excessive sweating, flushing or heat intolerance Jerry/Lymph: Denies: easy bruising or easy bleeding All/Imm: Denies: tongue swelling, facial swelling or acute wheezing Medications/Allergies Home Medications Medication Instructions Recorded Confirmed Last Taken Type acetaminophen 325 mg tablet 325 - 650 mg PO QID PRN Pain 06/02/20 02/29/24 08/10/22 History (Tylenol) zolpidem 5 mg tablet 5 mg PO .qhs PRN insomnia from 12/09/23 02/29/24 02/24/24 Rx medication #30 tabs acyclovir 400 mg tablet 400 mg PO BID 02/29/24 02/29/24 02/28/24 History carfilzomib 10 mg intravenous 10 mg IV DIRECTED 02/29/24 02/29/24 02/17/24 History solution dexamethasone 4 mg tablet 20 mg PO DIRECTED 02/29/24 02/29/24 02/24/24 History isatuximab-irfc 20 mg/mL 20 mg IV DIRECTED 02/29/24 02/29/24 02/17/24 History intravenous solution Allergies Allergy/AdvReac Type Severity Reaction Status Date / Time No Known Allergies Allergy Verified 02/29/24 10:02 PFSH Acute 2 PFSH: Medical History (Updated 02/29/24 @ 17:18 by Ozzy Headley MD) Chemotherapy induced neutropenia Closed fracture of right clavicle Pulmonary laceration Right pulmonary contusion Closed flail chest Multiple myeloma Surgical History Port-A-Cath in place 08/17/22 Dr. Sherwood Hx of colonoscopy S/P ORIF (open reduction internal fixation) fracture (08/2020) ORIF of right clavicle fracture Family History Grandfather Stroke Denies family history of Diabetes CAD (coronary artery disease) Clotting disorder Dementia Hyperlipidemia Psychiatric illness Chronic kidney disease (CKD) Suicide Anesthesia complication Bleeding disorder Lung disease Cancer Hypertension Social History Smoking and tobacco/nicotine status: never used tobacco/nicotine Alcohol intake: never Vitals/I&O/Wt Last Vital Signs Temp 98.2 F 02/29/24 11:33 Pulse 103 H 02/29/24 16:00 Resp 17 02/29/24 16:00 BP 151/104 02/29/24 16:00 Pulse Ox 97 02/29/24 16:00 O2 Del Method Room Air 02/29/24 16:00 Weight last 48 hrs Weight 81.647 kg Data 02/29/24 12:17 02/29/24 12:17 Other Labs: Radiology Impressions Chest CTA 02/29/24 12:57 IMPRESSION: 1. Moderate bilateral pleural effusions with adjacent compressive atelectasis or pneumonia. In combination with cardiomegaly, findings are consistent with congestive heart failure. 2. Nonspecific intermediate density lesion in the left hepatic lobe measures 2.5 cm in the AP dimension similar to the prior CT scan. This cannot be further characterized on this examination. Laboratory Results WBC 6.29 10^3/uL (3.29-11.43) 02/29/24 12:17 RBC 3.99 10^6/uL (3.85-5.65) 02/29/24 12:17 Hgb 13.70 g/dL (11.27-16.99) 02/29/24 12:17 Hct 41.5 % (37-53) 02/29/24 12:17 MCV 104.0 fl (82-101) H 02/29/24 12:17 MCH 34.3 pg (27-33) H 02/29/24 12:17 MCHC 33.0 g/dL (30-55) 02/29/24 12:17 RDW 14.0 % (12.1-15.1) 02/29/24 12:17 Plt Count 83 10^3/cmm (157-399) L 02/29/24 12:17 MPV 12.4 fL (7.4-10.4) H 02/29/24 12:17 Neut % (Auto) 67.7 % 02/29/24 12:17 Lymph % (Auto) 18.9 % 02/29/24 12:17 [place] % (Auto) 11.8 % 02/29/24 12:17 Eos % (Auto) 0.6 % 02/29/24 12:17 Baso % (Auto) 0.2 % 02/29/24 12:17 Neut # (Auto) 4.26 10^3/uL (1.8-7.7) 02/29/24 12:17 Lymph # (Auto) 1.2 10^3/uL (0.8-4.8) 02/29/24 12:17 [place] # (Auto) 0.7 10^3/uL (0.2-0.9) 02/29/24 12:17 Eos # (Auto) 0.0 10^3/uL (0.0-0.8) 02/29/24 12:17 Baso # (Auto) 0.0 10^3/uL (0.0-0.1) 02/29/24 12:17 Nucleated RBC % (auto) 0.8 % 02/29/24 12:17 Nucleated RBCs # 0.1 /100WBC 02/29/24 12:17 D-Dimer 4.17 ug/mLFEU (0-0.59) H 02/29/24 12:17 Sodium 141 mmol/L (136-145) 02/29/24 12:17 Potassium 4.6 mmol/L (3.5-5.1) 02/29/24 12:17 Chloride 105 mmol/L (98-107) 02/29/24 12:17 Carbon Dioxide 23 mmol/L (22-29) 02/29/24 12:17 Anion Gap 17.6 (5-19) 02/29/24 12:17 BUN 31 mg/dL (8-23) H 02/29/24 12:17 Creatinine 1.7 mg/dL (0.7-1.2) H 02/29/24 12:17 GFR Calculation Not Reportable 02/29/24 12:17 Glucose 105 mg/dL (65-115) 02/29/24 12:17 Calculated Osmolality 299 mOsm/kg (285-295) H 02/29/24 12:17 Calcium 9.2 mg/dL (8.5-10.5) 02/29/24 12:17 Total Bilirubin 1.2 mg/dL (0.15-1.2) 02/29/24 12:17 AST 22 U/L (0-40) 02/29/24 12:17 ALT 33 U/L (0-41) 02/29/24 12:17 Alkaline Phosphatase 83 U/L (40-130) 02/29/24 12:17 Troponin T Baseline 136 ng/L (0-15) H* 02/29/24 12:17 Troponin T 120 Minute 120.0 ng/L (0-15) H 02/29/24 14:14 Delta Troponin T -16.0 ABS# (0-10) L 02/29/24 14:14 NT-Pro-B Natriuret Pep 18986 pg/mL (0-125) H 02/29/24 14:14 Total Protein 5.5 g/dL (6.6-8.7) L 02/29/24 12:17 Albumin 4.0 g/dL (3.5-5.2) 02/29/24 12:17 Globulin 1.5 g/dL (1.3-4.6) 02/29/24 12:17 Procalcitonin 0.14 ng/mL (0-0.5) 02/29/24 12:17 A&P Assessment and plan (1) Dyspnea on exertion: (2) Congestive heart failure: Qualifiers: Heart failure chronicity: acute Heart failure type: unspecified Qualified Code(s): I50.9 - Heart failure, unspecified (3) Elevated troponin: (4) Acute on chronic renal insufficiency: Plan 73-year-old with past medical history of multiple myeloma on chemotherapy presented with symptoms of dyspnea on exertion with orthopnea worsening over last 4 weeks more so over the last 1 week. Dyspnea on exertion: CT done in the ER negative for PE but concerning for bilateral pleural effusion with cardiomegaly and concerns of congestive heart failure. At baseline troponin elevated with negative delta. proBNP elevated. Check echocardiogram. Cycle troponins, TSH, vitamin B12, folate level. Monitor telemetry. Fluid restriction up to 1500 cc. Lasix 40 mg IV daily. Strict input output charting, daily weights. Will make further treatment plan as per echocardiogram results. Patient might need Lexiscan stress test to rule out ACS. ZANE on CKD: Baseline creatinine seems to be around 1.4-1.6. Currently creatinine at baseline. Medical reconciliation done for nephrotoxic drugs. He did get a CTA in ER. Will continue to monitor renal functions. No other electrolyte disturbance for now. For now we will hold off on acyclovir. Full code Cardiac diet Fluid restriction up to 1500 cc Famotidine for PUD prophylaxis Heparin 5000 every 12 hourly for DVT prophylaxis. Attestations 2 Medical Necessity Statement*: Admit under observation for management of new onset congestive heart failure in a patient with history of multiple myeloma on chemotherapy. Diagnoses Dyspnea on exertion R06.09 Congestive heart failure I50.9 Heart failure chronicity: acute Heart failure type: unspecified Elevated troponin R79.89 Acute on chronic renal insufficiency N28.9; N18.9
[2024-02-29 16:59] LABS: Procalcitonin 0.14 ng/mL (0-0.5)
--- NOTE | 2024-02-29 17:15 | ECG_ITS ---
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 Measurements Intervals [place] Rate: 104 P: 62 [place]: 160 QRS: 55 QRSD: 108 T: 83 QT: 348 QTc: 458 Interpretive Statements SINUS TACHYCARDIA POSSIBLE LEFT ATRIAL ENLARGEMENT [-0.1mV P-WAVE IN V1/V2] Compared to ECG 02/29/2024 15:42:57 Intraventricular conduction delay no longer present Electronically Signed On 03-01-2024 19:03:22 [employer] by Gurvinder Murphy M.D. [id number]
[2024-02-29 17:29] LABS: Iron 53 ug/dL (59-158); Thyroid Stimulating Hormone 1.85 uIU/mL (0.27-4.20); Vitamin B12 272 pg/mL (232-1245)
[2024-02-29 17:33] LABS: Percent Saturation 20.3 % (20-50); Total Iron Binding Capacity 260 mcg/dl; Unsaturated Iron Binding 207 ug/dL (112-347)
[2024-02-29] MEDS: FUROsemide 10 mg/mL SDV 4mL 40 MG IVP (17:41)
[2024-02-29] MEDS: famotidine 20 mg Tablet PO (17:41)
[2024-02-29] MEDS: heparin 5,000 unit/mL INJ 1 mL 5000 UNIT SUBCUT (17:41)
[2024-02-29 18:13] LABS: Bilirubin Urine Negative (Negative); Blood Urine Negative (Negative); Glucose Urine UA Negative (Normal); Ketones Urine Negative (Negative); Leukocyte Esterase Urine Negative (Negative); Nitrate Urine Negative (Negative); Protein Urine Negative (Negative); Specific Gravity, Urine 1.023 (1.005-1.030); Urine Appearance Clear (CLEAR); Urine Color Yellow (Yellow)
[2024-02-29 18:18] LABS: Add Urine Microscopic? YES; Bacteria Urine None Seen /hpf; RBC Urine 0-2 /hpf (0-2); Squamous Epithelial Cell Urine 0-5 /hpf (0-5); WBC Urine 0-5 /hpf (0-5)
[2024-02-29 18:19] LABS: Amphetamines Screen Urine Negative (Negative); Barbiturates Screen Urine Negative (Negative); Benzodiazepines Screen Urine Negative (Negative); Cocaine Screen Urine Negative (Negative); Opiate Screen Urine Negative (Negative); PCP Screen Urine Negative (Negative); THC Screen Urine Negative (Negative)
[2024-02-29 18:28] LABS: Troponin 5 6HR Delta 8.6 ng/L (0-12)
[2024-02-29 19:05] LABS: Troponin 5 6HR 144.6 ng/L (0-15)
--- NOTE | 2024-02-29 19:22 | PC.NURSE ---
Patient sent ozziedanette home with his son, Ede.
--- NOTE | 2024-02-29 19:22 | PC.NURSE ---
Troponin 6hr reported to Dr. Headley, Patient has no requests or complaints at this time, reports no pain, Dr. Headley gave no new orders.
[2024-02-29] MEDS: zolpidem 5 mg Tablet PO (22:09)
[2024-03-01] VITALS (29 sets, daily range): BP systolic 111–147; BP diastolic 67–104; PULSE 89–117; RESP 7–35; TEMP 36.4–37; O2SAT 91–99; BMI 22.6
[2024-03-01 05:09] LABS: Basophils % 0.3 %; Eosinophils # 0.1 10^3/uL (0.0-0.8); Eosinophils % 0.8 %; Lymphocytes # 1.2 10^3/uL (0.8-4.8); Lymphocytes % 15.1 %; Mean Corpuscular HGB Conc 33.5 g/dL (30-55); Mean Corpuscular Hemoglobin 34.9 pg (27-33); Mean Corpuscular Volume 104.1 fl (82-101); Mean Platelet Volume 12.3 fL (7.4-10.4); Monocytes # 0.8 10^3/uL (0.2-0.9); Monocytes % 10.6 %; Neutrophils # 5.57 10^3/uL (1.8-7.7); Neutrophils % 72.5 %; Nucleated Red Blood Cells % 0.4 %; Platelet Count 76 10^3/cmm (157-399); Red Blood Count 4.13 10^6/uL (3.85-5.65); Red Cell Distribution Width 14.2 % (12.1-15.1); White Blood Count 7.67 10^3/uL (3.29-11.43)
[2024-03-01] MEDS: heparin 5,000 unit/mL INJ 1 mL 5000 UNIT SUBCUT ×2 (05:13→17:13)
[2024-03-01 05:22] LABS: Estmated Average Glucose 108; Hemoglobin A1C 5.4 % (4.0-6.0)
[2024-03-01 05:30] LABS: Alanine Aminotransferase 32 U/L (0-41); Albumin Level 3.7 g/dL (3.5-5.2); Alkaline Phosphatase 80 U/L (40-130); Anion Gap 13.9 (5-19); Aspartate Amino Transferase 20 U/L (0-40); Blood Urea Nitrogen 29 mg/dL (8-23); Calcium 9.8 mg/dL (8.5-10.5); Carbon Dioxide 27 mmol/L (22-29); Chloride 102 mmol/L (98-107); Creatinine Clr Calc Pharmacy 36.1926; Globulin 1.8 g/dL (1.3-4.6); Glucose 103 mg/dL (65-115); Osmolality Calculated 294 mOsm/kg (285-295); Phosphorus 4.3 mg/dL (2.5-4.5); Potassium 3.9 mmol/L (3.5-5.1); Sodium 139 mmol/L (136-145); Total Bilirubin 1.1 mg/dL (0.15-1.2); Total Protein 5.5 g/dL (6.6-8.7)
[2024-03-01 05:51] LABS: Folate Level 13.3 ng/mL (4.5-32.2)
[2024-03-01 06:10] LABS: Cholesterol 225 mg/dL (0-200); HDL Cholesterol 45 mg/dL (60-100); LDL Cholesterol Calculated 146 mg/dL (50-129); LDL HDL Ratio 3.24 RATIO (0.00-3.22); Triglycerides 169 mg/dL (0-150)
[2024-03-01 06:16] LABS: Procalcitonin 0.16 ng/mL (0-0.5)
[2024-03-01] MEDS: famotidine 20 mg Tablet PO ×2 (08:03→17:12)
[2024-03-01] MEDS: sodium chloride 0.9% 1,000 ML 50 ML IV (08:44)
[2024-03-01] MEDS: metoprolol tartrate 25 mg Tablet PO ×2 (08:44→20:52)
--- NOTE | 2024-03-01 10:18 | P.CONIM_ITS ---
Providers/Reason For Consult 2 Consulting Physician/Specialty*: Gurvinder Murphy MD/ Cardiology Reason for Consult*: LV dysfunction Requesting Physician: Dr Headley Attending Physician: Ozzy Headley MD Primary Care Provider: Ede Prado DO History of Present Illness History of Present Illness Nick Sheldon is a 73 year old male with past medical history of multiple myeloma on chemotherapy presented to hospital with 4 to 5 weeks of worsening shortness of breath. Also has intermittent chest discomfort. At baseline troponin is elevated ( was 136) however has not trended up significantly.Has CKD as well. Echocardiogram shows EF of 15 to 20% which is a significant decrease compared to prior echo in 8 was at 45 to 50%. Patient had a CTA performed at time of admission to rule out PE. Review of Systems 2 General: Reports: 10 or more systems reviewed and unremarkable except in HPI and below Card: Reports: chest pain Resp: Reports: dyspnea Medications/Allergies Home Medications Medication Instructions Recorded Confirmed Last Taken Type acetaminophen 325 mg tablet 325 - 650 mg PO QID PRN Pain 06/02/20 02/29/24 08/10/22 History (Tylenol) zolpidem 5 mg tablet 5 mg PO .qhs PRN insomnia from 12/09/23 02/29/24 02/24/24 Rx medication #30 tabs acyclovir 400 mg tablet 400 mg PO BID 02/29/24 02/29/24 02/28/24 History carfilzomib 10 mg intravenous 10 mg IV DIRECTED 02/29/24 02/29/24 02/17/24 History solution dexamethasone 4 mg tablet 20 mg PO DIRECTED 02/29/24 02/29/24 02/24/24 History isatuximab-irfc 20 mg/mL 20 mg IV DIRECTED 02/29/24 02/29/24 02/17/24 History intravenous solution Allergies Allergy/AdvReac Type Severity Reaction Status Date / Time No Known Allergies Allergy Verified 02/29/24 10:02 Current Medications Generic Name Dose Route Start Last Admin Trade Name Freq PRN Reason Stop Dose Admin Famotidine 20 mg 02/29/24 18:00 03/01/24 08:03 Famotidine 20 Mg Tablet PO 20 mg BID AGNIESZKA Administration Heparin Sodium (Porcine) 5,000 unit 02/29/24 16:45 03/01/24 05:13 Heparin 5,000 Unit/Ml Inj 1 Ml SUBCUT 5,000 unit Q12H AGNIESZKA Administration Sodium Chloride 1,000 mls @ 50 mls/hr 03/01/24 08:30 03/01/24 08:44 Sodium Chloride 0.9% IV 03/02/24 04:29 50 mls/hr .Q20H AGNIESZKA Administration Metoprolol Tartrate 25 mg 03/01/24 09:00 03/01/24 08:44 Metoprolol Tartrate 25 Mg Tablet PO 25 mg BID@0900,2100 AGNIESZKA Administration Zolpidem Tartrate 5 mg 02/29/24 16:45 02/29/24 22:09 Zolpidem 5 Mg Tablet PO 5 mg BEDTIME PRN Administration insomnia from medication PFSH Acute 2 PFSH: Medical History (Updated 03/02/24 @ 07:46 by Gurvinder Murphy M.D) Chemotherapy induced neutropenia Closed fracture of right clavicle Pulmonary laceration Right pulmonary contusion Closed flail chest Multiple myeloma Surgical History Port-A-Cath in place 08/17/22 Dr. Sherwood Hx of colonoscopy S/P ORIF (open reduction internal fixation) fracture (08/2020) ORIF of right clavicle fracture Family History Grandfather Stroke Denies family history of Diabetes CAD (coronary artery disease) Clotting disorder Dementia Hyperlipidemia Psychiatric illness Chronic kidney disease (CKD) Suicide Anesthesia complication Bleeding disorder Lung disease Cancer Hypertension Social History Smoking and tobacco/nicotine status: never used tobacco/nicotine Alcohol intake: never Vitals/I&O/Wt Last Vital Signs Temp 98.6 F 03/01/24 09:00 Pulse 114 H 03/01/24 10:02 Resp 18 03/01/24 10:02 BP 146/104 03/01/24 09:00 Pulse Ox 97 03/01/24 10:02 O2 Del Method Room Air 03/01/24 10:02 02/29/24 03/01/24 03/01/24 22:59 06:59 14:59 Intake Total 222 / 222 200 / 200 Output Total 2250 / 2250 1825 / 4075 Balance -2027 / -2027 -1825 / -3853 200 / 200 Weight last 48 hrs Weight 170 lb 11.2 oz Weight 171 lb Weight 180 lb Physical Exam 2 Narrative: GENERAL: Patient is alert, awake and oriented x3. [] NECK: No jugular vein distension. [] HEENT: No cyanosis. No icterus. No pallor. [] HEART: Regular S1 and S2. Grade 2/6 systolic murmur LUNGS: Clear to auscultate bilaterally. [] CENTRAL NERVOUS SYSTEM: Grossly nonfocal. [] EXTREMITIES: Lower extremities with 1+ edema bilaterally. Urinary Catheter Management: Delgado: Cath Placed During This Visit: yes Reason for Continuing Indwelling Catheter: Accurate Measurement of Urinary Output in Critically Ill Patients Urinary Catheter Date of Insertion: 02/29/24 Urinary Catheter Time of Insertion: 17:11 Data 03/02/24 04:43 03/02/24 04:43 A&P Assessment and plan (1) LV dysfunction: (2) Congestive heart failure: Qualifiers: Heart failure chronicity: acute Heart failure type: combined systolic and diastolic Qualified Code(s): I50.41 - Acute combined systolic (congestive) and diastolic (congestive) heart failure (3) Elevated troponin: (4) Dyspnea on exertion: Plan Patient has been having worsening shortness of breath. Also has on and off chest discomfort episodes. Feels mostly they are related to when he receives chemotherapy. However given EF of 15 to 20%, we will proceed with coronary angiogram with possible PCI. Risks and benefits of procedure have been discussed in detail. He understands it and wants to proceed. We will also discussed with family prior to the procedure. NPO past midnight Monitor renal function Hold off on further diuresis for today Thank you for involving us with care of this patient. We will continue to follow. Please call with questions. Consult Attestations 2 Medical Necessity Statement: Care expected to cross 2 midnights. Coding Level of Care Code Acute Code for [facility] Fwd Diagnoses LV dysfunction I51.9 Acute combined systolic and diastolic congestive heart failure I50.41 Heart failure chronicity: acute Heart failure type: combined systolic and diastolic Elevated troponin R79.89 Dyspnea on exertion R06.09
[2024-03-01] MEDS: aspirin 81 mg EC Tablet PO (11:17)
--- NOTE | 2024-03-01 12:59 | CTR_ITS ---
PROCEDURE INFORMATION: Exam: CT Head Without Contrast Exam date and time: 03/01/2024 1:35 PM Age: 73 years old Clinical indication: Altered mental status/memory loss; Additional info: Confusion TECHNIQUE: Imaging protocol: Computed tomography of the head without contrast. Radiation optimization: All CT scans at this facility use at least one of these dose optimization techniques: automated exposure control; mA and/or kV adjustment per patient size (includes targeted exams where dose is matched to clinical indication); or iterative reconstruction. COMPARISON: CT head wo con* [id number] 06/02/2020 1:30 PM RADIATION DOSE METRICS: Total DLP (mGy-cm): 1186.18 FINDINGS: Brain: Sequela of moderate chronic microvascular ischemic changes with periventricular and deep white matter hypoattenuation. Focal right occipital encephalomalacia. Persaud-white differentiation is otherwise maintained. No evidence of intra-axial or extra-axial hemorrhage. No mass effect or midline shift. Basilar cisterns are patent. Cerebral ventricles: No hydrocephalus. Paranasal sinuses: The visualized paranasal sinuses are well aerated. Mastoid air cells: The visualized mastoids and middle ears are clear. Bones: Calvarium is intact. No evidence of acute fracture. Soft tissues: No gross soft tissue abnormality. CT/CT head wo con* [id number] IMPRESSION: 1. No acute intracranial abnormality.
[2024-03-01] MEDS: haloperidol inj 5 mg/mL INJ 1 mL 1 MG IM ×3 (13:09→14:52)
--- NOTE | 2024-03-01 13:54 | PC.NURSE ---
Patient increasingly confused throughout this shift, O2 applied per Dr. Headley during rounding with Doc. Patient persistently becoming more confused with visitors at bedside. Bed alarm applied and patient reoriented. Patient attempts getting out of bed and pulls at lines/m[place], unable to reorient patient, Dr. Headley on unit and ordered 1mg haldol IM. See MAY. Head CT stat ordered and waiting for results this time.
[2024-03-01 14:32] LABS: ABG PCO2 31.4 mmHg (35-45); ABG PH Result 7.49 (7.35-7.45); Alveolar-Arterial Oxygen Gradi 4.5 mmHg (5-10); Arterial Blood Gas Hematocrit 39.3 % (42-52); Base Excess ABG 1.3 mmol/L (-2.0-2.0); Blood Gas Allen Test Pos; Blood Gas Operator Identificat GD; Blood Gas Sample Site Radial, right; Blood Gas Sample Type Arterial; Carboxyhemoglobin 1.4 %THgb (0.4-20.1); Ionized Calcium Level - ABG 1.2 mmol/L (1.1-1.4); Methemoglobin 0.9 % (0.4-1.5); Oxygen Device ROOM AIR; Oxygen Saturation ABG 96.3; PO2 ABG 76.8 mmHg (80.0-100.0); Potassium Level - ABG 3.6 mmol/L (3.5-5.0); Total Hemoglobin 12.8 g/dL (14-18)
--- NOTE | 2024-03-01 14:42 | P.PN_ITS ---
Subjective 2 Subjective: No acute events overnight. Patient has been on room air. Today morning on examination patient was awake and alert. Denied any chest pain. During the day patient had progressively gotten confused. Vitals/I&O/Wt Last Vital Signs Temp 97.6 F 03/01/24 11:00 Pulse 117 H 03/01/24 14:16 Resp 25 H 03/01/24 14:00 BP 111/67 03/01/24 14:00 Pulse Ox 94 03/01/24 14:00 O2 Del Method Nasal Cannula 03/01/24 14:00 O2 Flow Rate 1 03/01/24 14:00 02/29/24 03/01/24 03/01/24 22:59 06:59 14:59 Intake Total 222 / 222 422 / 422 Output Total 2250 / 2250 1825 / 4075 250 / 250 Balance -2028 / -2028 -1825 / -3853 172 / 172 Weight last 48 hrs Weight 78.018 kg Weight 77.428 kg Weight 77.564 kg Weight 81.647 kg Physical Exam 2 Narrative: General: No acute distress, AO x3 in morning later AO x 1 to 2 with anxiety HEENT: PERRLA, pupils bilaterally equal and reactive Chest: Normal vesicular breath sounds, no added sounds, equal good air entry bilaterally CVS: S1-S2 regular, pansystolic murmur at apex radiating to anterior axillary line, no tachycardia, S3 gallops, no rubs Abdomen: Soft, nontender, no organomegaly, bowel sounds present Neuro: No focal deficits, no facial deformity, AO x3, power 5/5 in all limbs Urinary Catheter Management: Delgado: Cath Placed During This Visit: yes Reason for Continuing Indwelling Catheter: Accurate Measurement of Urinary Output in Critically Ill Patients Urinary Catheter Date of Insertion: 02/29/24 Urinary Catheter Time of Insertion: 17:11 Data 03/01/24 04:41 03/01/24 04:41 A&P Assessment and plan (1) Dyspnea on exertion: (2) Congestive heart failure: Qualifiers: Heart failure chronicity: acute Heart failure type: combined systolic and diastolic Qualified Code(s): I50.41 - Acute combined systolic (congestive) and diastolic (congestive) heart failure (3) Elevated troponin: (4) Acute on chronic renal insufficiency: Plan 73-year-old with past medical history of multiple myeloma on chemotherapy presented with symptoms of dyspnea on exertion with orthopnea worsening over last 4 weeks more so over the last 1 week. Dyspnea on exertion: CT done in the ER negative for PE but concerning for bilateral pleural effusion with cardiomegaly and concerns of congestive heart failure. At baseline troponin elevated with negative delta. proBNP elevated. Echocardiogram shows an EF of 15 to 20%, dilated and hypokinetic RV, dilated LV, moderate MR, mild to moderate TR, moderate pulmonary hypertension. Concerns for new onset congestive heart failure. Appreciate cycle troponin, TSH. Cardiology consulted. Patient will most likely need a cardiac angiogram to rule out ischemic etiology. Start on metoprolol 25 mg twice daily. Monitor telemetry. For now start on aspirin 81 mg daily, atorvastatin 40 mg daily. Appreciate A1c, lipid panel. Fluid restriction up to 1500 cc. Patient is overall 4.5 L negative overnight. Most likely will need cardiac angiogram in next 24 hours. Hold off on Lasix for now. Start on gentle IV hydration with normal saline 50 cc/h. Strict input output charting, daily weights. ZANE on CKD: Baseline creatinine seems to be around 1.4-1.6. Continue to monitor renal functions daily. Medical reconciliation done for nephrotoxic drugs. He did get a CTA in ER. Will continue to monitor renal functions. No other electrolyte disturbance for now. For now we will hold off on acyclovir. Altered mental status: Patient did receive Ambien overnight. As per the patient family he is not usually on Ambien even though its on his medical reconciliation. Check CT head, ABG. Hold off on Ambien. Sitter at bedside. Haldol 1 mg every 4 hours as needed for agitation. Full code Cardiac diet Fluid restriction up to 1500 cc Famotidine for PUD prophylaxis Heparin 5000 every 12 hourly for DVT prophylaxis. Care discussed in detail with patient's family over the phone. All the questions were answered. Attestations 2 Medical Necessity Statement*: Requires further hospitalization for management of acute new onset congestive heart failure with EF 15% while ischemic etiology is ruled out, hypoxia in setting of congestive heart failure, ZANE on CKD Diagnoses Dyspnea on exertion R06.09 Acute combined systolic and diastolic congestive heart failure I50.41 Heart failure chronicity: acute Heart failure type: combined systolic and diastolic Elevated troponin R79.89 Acute on chronic renal insufficiency N28.9; N18.9
--- NOTE | 2024-03-01 15:40 | PC.NURSE ---
Patient remains confused, sitter at bedside, patient calling family via cellphone. Family spoke with this nurse and Dr. Headley, family will be arriving in a short time to sit at bedside with patient.
[2024-03-01 15:54] LABS: Anion Gap 19.1 (5-19); Blood Urea Nitrogen 32 mg/dL (8-23); Calcium 9.3 mg/dL (8.5-10.5); Carbon Dioxide 23 mmol/L (22-29); Chloride 106 mmol/L (98-107); Creatinine Clr Calc Pharmacy 38.1851; Glucose 116 mg/dL (65-115); Osmolality Calculated 306 mOsm/kg (285-295); Potassium 4.1 mmol/L (3.5-5.1); Sodium 144 mmol/L (136-145)
--- NOTE | 2024-03-01 16:20 | USCV_ITS ---
Nick Sheldon Age: 73 Gender: M : 1950 Exam Date: 03/01/2024 07:36 Ordering Phys: Ozzy Headley MD Technologist: Asim Nair Exam Location: [facility] [place] Indication: CHF BP: 118 / 78 HR: 97 Rhythm: Sinus Technical Quality: Adequate MEASUREMENTS (Male / Female) Normal Values 2D ECHO LV Diastolic Diameter PLAX 6.0 cm 4.2 - 5.9 / 3.9 - 5.3 cm IVS Diastolic Thickness 1.1 cm 0.6 - 1.0 / 0.6 - 0.9 cm IVS Systolic Thickness 1.4 cm LVPW Diastolic Thickness 1.8 cm 0.6 - 1.0 / 0.6 - 0.9 cm LVPW Systolic Thickness 2.5 cm LVOT Diameter 2.2 cm LV Ejection Fraction 2D Teich 14.9 % LV Ejection Fraction MOD 4C 27.4 % LV Ejection Fraction MOD 2C 25.4 % LV Ejection Fraction 2C AL 24.2 % LA Diameter 4.1 cm RA Systolic Volume 4C AL 48.6 ml RA Systolic Volume 4C MOD 47.8 ml LA Sys Volume AL 65.4 cm cubed LA Sys Volume Index AL 32.9 cm cubed/m squared Aorta at Sinotubular Diameter 2.7 cm IVC Diameter 1.9 cm M-MODE LA Ao Ratio MM 1.4 AV Cusp Separation MM 1.8 cm DOPPLER AV Peak Velocity 84.0 cm/s LVOT Peak Velocity 60.0 cm/s AV Area Cont Eq vti 2.7 cm squared AV Area Cont Eq pk 2.7 cm squared MV Peak Velocity 131.0 cm/s MV Area PHT 21.4 cm squared Mitral E to A Ratio 1.5 TV Peak Velocity 299.0 cm/s TR Peak Velocity 383.5 cm/s TR Peak Gradient 58.8 mmHg TR Mean Velocity 267.0 cm/s TR Mean Gradient 32.9 mmHg TR Velocity Time Integral 105.9 cm PV Peak Velocity 52.0 cm/s RV Ejection Time 0.3 s FINDINGS Left Ventricle Left ventricle is dilated. LV systolic function is severely reduced with EF of 15-20%. Severe global hypokinesis. Right Ventricle RV is mildly hypokinetic Right Atrium Normal in size Left Atrium Dilated Mitral Valve Structurally normal mitral valve. Moderate mitral regurgitation. Aortic Valve Structurally normal aortic valve. No significant stenosis. Trace aortic regurgitation. Tricuspid Valve Mild to moderate tricuspid regurgitation. RVSP is 55 to 60 mmHg. This is consistent with moderate pulmonary hypertension. Pulmonic Valve Mild pulmonic regurgitation. Pericardium Normal Aorta Normal in size IVC Appears to be normal CONCLUSIONS Left ventricle is dilated. LV systolic function is severely reduced with EF of 15 to 20%. RV is mildly hypokinetic. Left atrium is dilated. Moderate mitral regurgitation. Trace aortic regurgitation Mild to moderate tricuspid regurgitation. Moderate pulmonary hypertension Mild pulmonic regurgitation Compared to prior echocardiogram from 2022, LV systolic function has decreased significantly. Gurvinder Murphy MD (Electronically Signed) Final Date: 01 March 2024 08:21 S
--- NOTE | 2024-03-01 19:30 | PC.NURSE ---
Family preferred to stay with patient instead of having PSA at bedside. Extensive education provided to family about patient safety and notifying nursing staff. Management aware.
[2024-03-01] MEDS: atorvastatin 40 mg Tablet PO (20:51)
[2024-03-02] VITALS (16 sets, daily range): BP systolic 108–142; BP diastolic 64–102; PULSE 87–107; RESP 12–25; TEMP 36.1–36.8; O2SAT 93–100; BMI 22.6
--- NOTE | 2024-03-02 04:42 | PC.NURSE ---
Aprox 0130 patient was found to have pulled at his port access. Nurse removed port access device and cleansed site. Patient frequently getting up out of bed and removing leads and pulling at IV lines throughout the night. Patient reoriented frequently, and education provided to family to alert nurse immediately should patient get up or pull at any of his lines. Family agreed.
[2024-03-02 05:09] LABS: Basophils % 0.3 %; Eosinophils % 0.1 %; Hematocrit 40.3 % (37-53); Lymphocytes # 0.9 10^3/uL (0.8-4.8); Lymphocytes % 12.5 %; Mean Corpuscular HGB Conc 32.8 g/dL (30-55); Mean Corpuscular Hemoglobin 34.4 pg (27-33); Mean Corpuscular Volume 104.9 fl (82-101); Mean Platelet Volume 13.5 fL (7.4-10.4); Monocytes # 0.9 10^3/uL (0.2-0.9); Monocytes % 13.5 %; Neutrophils # 5.08 10^3/uL (1.8-7.7); Nucleated Red Blood Cells % 0 %; Platelet Count 73 10^3/cmm (157-399); Red Blood Count 3.84 10^6/uL (3.85-5.65); Red Cell Distribution Width 14.6 % (12.1-15.1); White Blood Count 6.96 10^3/uL (3.29-11.43)
[2024-03-02 05:34] LABS: Alanine Aminotransferase 25 U/L (0-41); Albumin Level 3.7 g/dL (3.5-5.2); Alkaline Phosphatase 71 U/L (40-130); Aspartate Amino Transferase 18 U/L (0-40); Blood Urea Nitrogen 36 mg/dL (8-23); Calcium 9.6 mg/dL (8.5-10.5); Carbon Dioxide 24 mmol/L (22-29); Chloride 103 mmol/L (98-107); Creatinine Clr Calc Pharmacy 34.5484; Globulin 1.7 g/dL (1.3-4.6); Glucose 120 mg/dL (65-115); Osmolality Calculated 302 mOsm/kg (285-295); Sodium 141 mmol/L (136-145); Total Bilirubin 1.2 mg/dL (0.15-1.2); Total Protein 5.4 g/dL (6.6-8.7)
[2024-03-02] MEDS: heparin 5,000 unit/mL INJ 1 mL 5000 UNIT SUBCUT ×2 (05:35→17:03)
[2024-03-02 05:38] LABS: Slide Review Slide Review Perform
--- NOTE | 2024-03-02 07:37 | PC.NURSE ---
Pt taken to labor/excavator and family taken to waiting room.
--- NOTE | 2024-03-02 07:49 | W.PM.OPSUD ---
Surgery/Procedure H&P Update DATE OF PROCEDURE: March 02, 2024 DATE H&P PERFORMED: 03/01/24 H&P UPDATE INFORMATION: I have reviewed H&P completed within last 30 days, I have examined patient prior to procedure and No changes to prior documentation PREOP DIAGNOSIS: LV dysfunction PRIMARY INDICATION FOR PROCEDURE: LV dysfunction PLANNED PROCEDURE: Left heart cath with possible percutaneous coronary intervention PATIENT REASSESSED PRIOR TO SEDATION, WITH NO CHANGE NOTED: Yes PHYSICAL EXAM: alert, oriented x 3, clear to auscultation bilaterally and regular rate & rhythm AIRWAY EVAL/ANESTHESIA PLAN: normal airway, ASA III, Local Anesthesia, Risks, benefits & alternatives of sedation and/or procedure discussed and Patient agrees to continue as planned ADDITIONAL INFORMATION: Moderate sedation
[2024-03-02] MEDS: metoprolol tartrate 25 mg Tablet PO ×2 (09:12→22:02)
[2024-03-02] MEDS: famotidine 20 mg Tablet PO ×2 (09:12→18:29)
[2024-03-02] MEDS: aspirin 81 mg EC Tablet PO (09:12)
--- NOTE | 2024-03-02 11:44 | P.PN_ITS ---
<Statement entered by Gurvinder Murphy M.D - 03/03/24 18:49> Patient was evaluated and cared for in conjunction with an advanced practice practitioner.? I personally examined the patient and reviewed the chart and all pertinent data including imaging, telemetry, and laboratory results.? I discussed the patient in detail with the advanced practice practitioner.? Please see? their note for complete progress note, testing result and agreed upon plan of care for the patient. Patient denies chest pain. Has some confusion GENERAL: Patient is confused HEART: Regular S1 and S2 LUNGS: Diminished air entry. CENTRAL NERVOUS SYSTEM: Grossly nonfocal. EXTREMITIES: Lower extremities with out edema bilaterally. (1) LV dysfunction (2) Congestive heart failure (3) Elevated troponin (4) Dyspnea on exertion Plan Patient's coronary angiogram demonstrated nonobstructive CAD. Nonischemic cardiomyopathy. Likely related to immunotherapy/chemo. Will hold off on diuresis for today with contrast administration. However his LVEDP is elevated. Will need eventual diuresis. Guideline directed medical therapy. Patient's family requesting transfer to [facility] for his oncology team is. Thank you for involving us with care of this patient. We will continue to follow. Please call with questions. Subjective 2 Subjective: Patient had heart cath today that showed nonischemic cardiomyopathy. EF is 15%. He denies any shortness of breath at this time. Creatinine at 2.1. Overall he appears euvolemic. Medications: Reviewed: Yes Vitals/I&O/Wt Last Vital Signs Temp 98.3 F 03/02/24 00:00 Pulse 92 03/02/24 10:00 Resp 25 H 03/02/24 10:00 BP 129/96 03/02/24 10:00 Pulse Ox 94 03/02/24 08:56 O2 Del Method Room Air 03/02/24 08:56 O2 Flow Rate 1 03/01/24 22:00 03/01/24 03/02/24 03/02/24 22:59 06:59 14:59 Intake Total 400 / 822 1000 / 1822 Output Total 200 / 450 Balance 200 / 372 1000 / 1372 Weight last 48 hrs Weight 174 lb 3.2 oz Weight 172 lb Weight 170 lb 11.2 oz Weight 171 lb Physical Exam 2 Narrative: General: No apparent distress, healthy appearing, well nourished Muskuloskeletal: Full ROM Lymphatic: no lymphedema noted Respiratory: Normal respiratory effort, clear to auscultation bilaterally throughout all lung correa, no use of accessory muscles Cardio: No JVD, regular rate, regular rhythm, S1 S2 normal, no murmurs, peripheral pulses 2+ throughout GI: Normal to inspection, nondistended Extremities: Full ROM, normal, normal capillary refill, no cyanosis or edema Neuro: Alert and oriented x4, no focal motor deficits Psych: Affect normal, denies suicidal ideation, mental status grossly normal Skin: Right groin previous heart cath fem stick w/o hematoma, soft Urinary Catheter Management: Delgado: Cath Placed During This Visit: yes Reason for Continuing Indwelling Catheter: Accurate Measurement of Urinary Output in Critically Ill Patients Urinary Catheter Date of Insertion: 02/29/24 Urinary Catheter Time of Insertion: 17:11 Data 03/02/24 04:43 03/02/24 04:43 A&P Assessment and plan (1) LV dysfunction: (2) Congestive heart failure: Qualifiers: Heart failure chronicity: acute Heart failure type: combined systolic and diastolic Qualified Code(s): I50.41 - Acute combined systolic (congestive) and diastolic (congestive) heart failure (3) Elevated troponin: (4) Dyspnea on exertion: Plan Patient is doing well overall. He had a coronary angiogram today that showed nonischemic cardomyopathy. Will need to initiate GDMT with Entresto at some point. Patient on metoprolol at this time. Creatinine is increased at 2.1. Baseline is around 1.5-1.6. Will hold off on Entresto at this time. Continue to monitor renal function. Patient is getting transfered to stepdown. Patient's current chemo therapy may be inducing his heart failure. Will order lifevest for decreased EF at 15%. Attestations 2 Medical Necessity Statement*: Deferred to primary. Coding Level of Care Code Acute Code for [facility] Fwd Diagnoses LV dysfunction I51.9 Acute combined systolic and diastolic congestive heart failure I50.41 Heart failure chronicity: acute Heart failure type: combined systolic and diastolic Elevated troponin R79.89 Dyspnea on exertion R06.09
--- NOTE | 2024-03-02 12:24 | XR_ITS ---
WS: [id number] XR chest 1V portable [id number] REASON FOR EXAM: hypoxia FINDINGS: Compared to the previous examination of 02/29/2024, there are now reticular interstitial lung opaciti es in the lower lung correa and accentuation of the minor fissure. The costophrenic angles are both blunted. (CT of the chest 02/29/[address] eural effusions.). The heart is moderately enlarged. Left chest chemotherapy infusion port and left subclavian infusion catheter remain unchanged. Multiple old rib fractures on the right. Plate and screw fixation of previous right clavicle fracture . XR/XR chest 1V portable [id number] IMPRESSION: Since the previous examination of 02/29/2024, pulmonary parenchymal lung opacit ies are now present, most compatible with pulmonary edema/congestive heart fail ure. Likely there are still bilateral pleural effusions.
[2024-03-02] MEDS: FUROsemide 10 mg/mL SDV 10mL 60 MG IVP (15:09)
--- NOTE | 2024-03-02 16:27 | PC.NURSE ---
Called to patient room by staff for increase agitation patient assisted to restroom and was able to void and assisted back to bed and was redirected, all monitoring systems reapplied and patient calm bed alarm placed family at bedside instructed to push call henderson for any assistance.
[2024-03-02] MEDS: ALPRAZolam 0.5 mg Tablet PO (17:01)
[2024-03-02] MEDS: piperacillin-tazobactam 3.375 GM in sodium chloride 0.9% (plus) 50 ML IV (17:02)
--- NOTE | 2024-03-02 19:47 | P.PN_ITS ---
Subjective 2 Subjective: This morning mental status slightly better, he is [place], more interactive, however, with worsening in the afternoon. He is awake, interactive, but confused, requiring continued redirection, taking off nasal cannula. Vitals/I&O/Wt Last Vital Signs Temp 96.9 F L 03/02/24 16:00 Pulse 102 H 03/02/24 16:00 Resp 22 H 03/02/24 16:00 BP 108/84 03/02/24 16:00 Pulse Ox 93 03/02/24 16:00 O2 Del Method Nasal Cannula 03/02/24 16:00 O2 Flow Rate 4 03/02/24 14:06 03/02/24 03/02/24 03/02/24 06:59 14:59 22:59 Intake Total 1000 / 1822 120 / 120 Balance 1000 / 1372 120 / 120 Weight last 48 hrs Weight 77.746 kg Weight 79.016 kg Weight 78.018 kg Weight 77.428 kg Physical Exam 2 Narrative: Family at bedside. Const: COMMON NORMALS: alert GENERAL APPEARANCE: cooperative O RIENTATION/CONSCIOUSNESS: Yes awake and Yes confused HENMT: COMMON NORMALS: oropharynx normal Neck/C-Spine: COMMON NORMALS: no JVD Resp: COMMON NORMALS: normal respiratory effort and clear to auscultation bilaterally AUSCULTATION: clear to auscultation bilaterally Cardio: COMMON NORMALS: no JVD, regular rhythm, S1 normal heart sound present, S2 normal heart sound present and No murmurs present (Cardio) RHYTHM: regular rhythm HEART SOUNDS: S1 normal heart sound present and S2 normal heart sound present GI: COMMON NORMALS: Normal to inspection, nondistended, normoactive bowel sounds present, Soft to palpation and non-tender PALPATION: Yes Soft to palpation Extremity: COMMON NORMALS: no joint enlargement and no pedal edema Neuro: COMMON NORMALS: moves all extremities SENSORIUM/ORIENTATION: Yes alert Skin: COMMON NORMALS: no rashes or lesions noted GENERAL SKIN EXAM: no rashes or lesions noted Urinary Catheter Management: Delgado: Cath Placed During This Visit: yes Reason for Continuing Indwelling Catheter: Accurate Measurement of Urinary Output in Critically Ill Patients Urinary Catheter Date of Insertion: 02/29/24 Urinary Catheter Time of Insertion: 17:11 Data 03/02/24 04:43 03/02/24 04:43 A&P Assessment and plan (1) Dyspnea on exertion: (2) Congestive heart failure: Qualifiers: Heart failure chronicity: acute Heart failure type: combined systolic and diastolic Qualified Code(s): I50.41 - Acute combined systolic (congestive) and diastolic (congestive) heart failure (3) Elevated troponin: (4) Acute on chronic renal insufficiency: Plan 73-year-old with past medical history of multiple myeloma on chemotherapy presented with symptoms of dyspnea on exertion with orthopnea worsening over last 4 weeks more so over the last 1 week. New cardiomyopathy, CHF exacerbation: Acute decompensated systolic and diastolic CHF, with new decrease in ejection fraction down to 15-20%. Reviewed echocardiogram. Reviewed cardiology note. Discussed with cardiology. Underwent coronary angiogram, no significant blockages noted. Nonischemic cardiomyopathy is noted. With underlying CKD, currently ZANE on CKD creatinine up to 2.1. Status post coronary angiogram Lasix initially held, however, with worsening hypoxia, noted pulmonary opacities on requested chest x-ray on my interpretation with possible right lower lobe infiltrate as well, although afebrile, but having chills, no leukocytosis this morning on review of CBC. Will repeat CBC. Empirically started on Zosyn for possible suppression pneumonia concomitant with decompensated CHF. As per discussion with cardiology, family, Lasix. Monitor for risk of electrolyte deficiency, worsening renal function/ZANE with IV diuretics. Monitor for risk of hypotension. In case becoming hypotensive, possible low output failure, consider inotrope support in ICU. Consider adrenal insufficiency with history of steroid with chemotherapy, although is not on steroid consistently. Could not tolerate CPAP. Continue oxygen support, wean down as tolerating. Less likely septic shock, but empirically started on Zosyn. Reassess vitals, oxygenation, blood counts. Transfer arrangements also underway, has been accepted to [facility] for further assessment, although currently pending transfer once a bed opens up. No beds available at [facility]. Acute encephalopathy: With delirium. Acute metabolic encephalopathy suspected secondary to acute decline in ejection fraction, may be progressing to low output state, possible aspiration pneumonia. Additionally possible toxic effect after Ambien with decreased renal clearance with ZANE on CKD as well as low ejection fraction. He is awake and alert, interactive, but is somewhat restless, needs redirection, taking off his nasal cannula. Cannot tolerate CPAP. So far is maintaining oxygenation with nasal cannula. Xanax added as needed, although as discussed risk of worsening encephalopathy/disinhibition. Haldol as needed for severe agitation, although with risk of increase in mortality. Dyspnea on exertion: With decompensated CHF with new nonischemic cardiomyopathy. At baseline troponin elevated with negative delta. proBNP elevated. Reviewed echocardiogram. Reviewed troponins, TSH, vitamin B12, folate level. Monitor telemetry. Fluid restriction up to 1500 cc. Lasix 60 mg IV today. Strict input output charting, daily weights. ZANE on CKD: Baseline creatinine seems to be around 1.4-1.6. Reviewed BUN, creatinine. ZANE on CKD, creatinine up to 2.1. Possibly secondary to decompensation of CHF. Medical reconciliation done for nephrotoxic drugs. He did get a CTA in ER. Will continue to monitor renal functions. No other electrolyte disturbance for now. For now we will hold off on acyclovir. Full code Cardiac diet Fluid restriction up to 1500 cc Famotidine for PUD prophylaxis Heparin 5000 every 12 hourly for DVT prophylaxis. Attestations 2 Medical Necessity Statement*: Continue admission for assessment management of decompensated CHF, new severe nonischemic cardiomyopathy, acute encephalopathy, possible aspiration pneumonia. and High Time for a total of 75 minutes, includes reviewing past or interval history, examining/interviewing patient, placing orders, counseling patient/family/other support, updating patient/family/other support, discussing plan of care with staff, communicating with other healthcare providers, documenting encounter and coordinating care Diagnoses Dyspnea on exertion R06.09 Acute combined systolic and diastolic congestive heart failure I50.41 Heart failure chronicity: acute Heart failure type: combined systolic and diastolic Elevated troponin R79.89 Acute on chronic renal insufficiency N28.9; N18.9
[2024-03-02] MEDS: atorvastatin 40 mg Tablet PO (22:02)
[2024-03-02 22:08] LABS: Alanine Aminotransferase 30 U/L (0-41); Albumin Level 3.7 g/dL (3.5-5.2); Alkaline Phosphatase 70 U/L (40-130); Anion Gap 20.9 (5-19); Aspartate Amino Transferase 30 U/L (0-40); Blood Urea Nitrogen 39 mg/dL (8-23); Calcium 9.1 mg/dL (8.5-10.5); Carbon Dioxide 23 mmol/L (22-29); Chloride 102 mmol/L (98-107); Creatinine Clr Calc Pharmacy 31.5008; Globulin 1.9 g/dL (1.3-4.6); Glucose 103 mg/dL (65-115); Osmolality Calculated 304 mOsm/kg (285-295); Potassium 3.9 mmol/L (3.5-5.1); Sodium 142 mmol/L (136-145); Total Bilirubin 1.5 mg/dL (0.15-1.2); Total Protein 5.6 g/dL (6.6-8.7)
[2024-03-03] VITALS (8 sets, daily range): BP systolic 116–120; BP diastolic 75–87; PULSE 68–102; RESP 16–25; TEMP 36.6–37.2; O2SAT 90–100; BMI 22.6
[2024-03-03] MEDS: haloperidol inj 5 mg/mL INJ 1 mL 1 MG IM ×2 (00:14→22:28)
[2024-03-03] MEDS: piperacillin-tazobactam 3.375 GM in sodium chloride 0.9% (plus) 50 ML IV ×2 (04:21→18:00)
--- NOTE | 2024-03-03 05:21 | PC.NURSE ---
Patient was becoming agitated and wanting to leave. Patient son was in there with patient trying to redirect patient back to bed. Haldol was given. Patient was still agitated and trying to leave. was becoming aggressive. Dr Joseph was notified and 10mg zyprexa IM was ordered.
--- NOTE | 2024-03-03 05:46 | PC.NURSE ---
Patient will not keep telemetry on, keeps pulling off stickers off when replaced. At 0200 This nurse was attempting to replace stickers when son stated that he just wanted to let patient sleep and not replace telemetry at this time.
[2024-03-03 08:12] LABS: Basophils % 0.3 %; Eosinophils % 0.5 %; Hematocrit 39.5 % (37-53); Lymphocytes # 0.9 10^3/uL (0.8-4.8); Lymphocytes % 14.2 %; Mean Corpuscular HGB Conc 32.4 g/dL (30-55); Mean Corpuscular Hemoglobin 35.5 pg (27-33); Mean Corpuscular Volume 109.4 fl (82-101); Mean Platelet Volume 12.9 fL (7.4-10.4); Monocytes % 15.7 %; Neutrophils # 4.46 10^3/uL (1.8-7.7); Neutrophils % 68.7 %; Nucleated Red Blood Cells % 0.3 %; Platelet Count 80 10^3/cmm (157-399); Red Blood Count 3.61 10^6/uL (3.85-5.65); Red Cell Distribution Width 15.3 % (12.1-15.1); White Blood Count 6.49 10^3/uL (3.29-11.43)
[2024-03-03] MEDS: metoprolol tartrate 25 mg Tablet PO ×2 (09:53→20:16)
[2024-03-03] MEDS: aspirin 81 mg EC Tablet PO (09:53)
[2024-03-03] MEDS: famotidine 20 mg Tablet PO ×2 (09:53→18:01)
--- NOTE | 2024-03-03 10:15 | PC.NURSE ---
pt back in bed pt and family called nurse and stated that pt is short of breath, went to room, pt laying flat in bed, elevated head of bed, pt already has 3 L of o2 per NC. BP-126/87. agreed to attached his telemetry, oxygen on him. building services coordinator MANAGER TRANSIT in room talking to family.
--- NOTE | 2024-03-03 10:21 | XR_ITS ---
WS: [id number] XR chest 1V portable [id number] REASON FOR EXAM: Shortness of breath FINDINGS: Compared to the examination of 03/02/2024, there has been significant resolution of the reticular and groundglass opacities in lower lung correa.. Minimal abnormality remains. Both costophrenic angles are blunted indicating pleural effusions. Otherwise, the chest is unchanged with no new findings. XR/XR chest 1V portable [id number] IMPRESSION: Interval improvement in the lung abnormality as above.
--- NOTE | 2024-03-03 11:19 | P.PN_ITS ---
<Statement entered by Gurvinder Murphy M.D - 03/03/24 18:51> Patient was evaluated and cared for in conjunction with an advanced practice practitioner.? I personally examined the patient and reviewed the chart and all pertinent data including imaging, telemetry, and laboratory results.? I discussed the patient in detail with the advanced practice practitioner.? Please see? their note for complete progress note, testing result and agreed upon plan of care for the patient. Creatinine worsened today to 2.3. Has some shortness of breath. Confusion has improved GENERAL: Patient is alert, confused HEART: Regular S1 and S2 LUNGS: Diminished air entry. CENTRAL NERVOUS SYSTEM: Grossly nonfocal. EXTREMITIES: Lower extremities with out edema bilaterally. (1) LV dysfunction (2) Congestive heart failure (3) Elevated troponin (4) Dyspnea on exertion Plan Patient's creatinine has worsened. Likely secondary to contrast-induced nephropathy has had contrast for CTA and coronary angiogram. Monitor renal function. Low restart diuretic therapy tomorrow. Monitor I and O. Monitor renal function LifeVest ordered Patient pending transfer to [facility]. Thank you for involving us with care of this patient. We will continue to follow. Please call with questions. Subjective 2 Subjective: Patient was confused last night but this morning is alert and oriented x 4. He has episodes of increased shortness of breath but does better with the head of the bed raised. At this time patient has fairly clear lung correa a little bit diminished in the right posterior lower lobe otherwise all lung sounds clear throughout. Creatinine did increase to 2.3. Overall vital signs are stable. O2 saturation 99% on 4 L nasal cannula. Medications: Reviewed: Yes Vitals/I&O/Wt Last Vital Signs Temp 97.9 F 03/03/24 08:00 Pulse 92 03/03/24 10:00 Resp 18 03/03/24 10:00 BP 116/76 03/03/24 08:00 Pulse Ox 99 03/03/24 10:00 O2 Del Method Nasal Cannula 03/03/24 10:00 O2 Flow Rate 4 03/03/24 10:00 03/02/24 03/03/24 03/03/24 22:59 06:59 14:59 Intake Total 50 / 170 530 / 530 Balance 50 / 170 530 / 530 Weight last 48 hrs Weight 171 lb 6 oz Weight 171 lb 6.4 oz Weight 174 lb 3.2 oz Weight 172 lb Physical Exam 2 Narrative: General: has times where he gets short of breath, overall stable appearing Muskuloskeletal: Full ROM Lymphatic: no lymphedema noted Respiratory: Normal respiratory effort, clear to auscultation bilaterally throughout all lung correa except slightly diminished right posterior lower lobe, no use of accessory muscles Cardio: No JVD, regular rate, regular rhythm, S1 S2 normal, no murmurs, peripheral pulses 2+ radial palpated bilaterally Extremities: Full ROM, normal, normal capillary refill, no cyanosis or edema Neuro: Alert and oriented x4, no focal motor deficits Psych: Affect normal, denies suicidal ideation, mental status grossly normal Skin: No rashes or lesions noted, no wounds Urinary Catheter Management: Delgado: Cath Placed During This Visit: yes Reason for Continuing Indwelling Catheter: Accurate Measurement of Urinary Output in Critically Ill Patients Urinary Catheter Date of Insertion: 02/29/24 Urinary Catheter Time of Insertion: 17:11 Data 03/03/24 08:06 03/02/24 20:49 A&P Assessment and plan (1) LV dysfunction: (2) Congestive heart failure: Qualifiers: Heart failure chronicity: acute Heart failure type: combined systolic and diastolic Qualified Code(s): I50.41 - Acute combined systolic (congestive) and diastolic (congestive) heart failure (3) Elevated troponin: (4) Dyspnea on exertion: Plan Patient is doing ok with periodic episodes of shortness of breath improved when he is elevated. He had a coronary angiogram previously that showed nonischemic cardomyopathy suspected to be chemotherapy induced. Will need to initiate GDMT with Entresto at some point. Patient on metoprolol at this time. Creatinine is increased at 2.3. Baseline is around 1.5-1.6. Will hold off on Entresto at this time. Continue to monitor renal function. Will hold off on diuretics at this time. We are holding off on the life vest due to transfer to [facility]. Repeat x-ray looks improved preliminary. Will continue current care. Attestations 2 Medical Necessity Statement*: Continue admission for assessment management of decompensated CHF, new severe nonischemic cardiomyopathy, acute encephalopathy. Coding Level of Care Code Acute Code for [facility] Fwd Diagnoses LV dysfunction I51.9 Acute combined systolic and diastolic congestive heart failure I50.41 Heart failure chronicity: acute Heart failure type: combined systolic and diastolic Elevated troponin R79.89 Dyspnea on exertion R06.09
[2024-03-03] MEDS: heparin 5,000 unit/mL INJ 1 mL 5000 UNIT SUBCUT (18:03)
--- NOTE | 2024-03-03 18:24 | PC.NURSE ---
pocket knife noted noted pt was trying to grab and stretch all his wires such as telemetry, spO2 wires and keep removing his oxygen nasal cannula. then i noted pt sliced the spo2 wire, noted pocket knife in his hand. Asked pt if i can have his pocket knife and he nicely give it to this nurse. pocket knife removed in room and kept it in the pt's chart at the nurses' station.
--- NOTE | 2024-03-03 19:00 | PC.NURSE ---
pt started to get agitated and restless trying to remove his nasal cannula and grabbing his telemetry off of him. family excuse to grab supper. MANAGER CHANGE at bedside to sit with him for now until they come back. family said his son will sit tonight.
--- NOTE | 2024-03-03 19:16 | P.PN_ITS ---
Subjective 2 Subjective: This morning he is doing better in terms of his mental status. He is awake, alert, interactive. Denies pain or discomfort. No chest pain. Breathing has shown improvement this morning. In the afternoon found to be getting dyspneic with orthopnea, PND. Improving when sitting more upright as well as when he is awake. While awake with oxygen on maintaining saturation high 90s. He has never had a sleep study, he and his family are not sure whether he may have concomitant sleep apnea. Vitals/I&O/Wt Last Vital Signs Temp 98.5 F 03/03/24 16:00 Pulse 96 03/03/24 16:00 Resp 25 H 03/03/24 16:00 BP 120/75 03/03/24 16:00 Pulse Ox 95 03/03/24 16:00 O2 Del Method Nasal Cannula 03/03/24 16:00 O2 Flow Rate 4 03/03/24 10:00 FiO2 32 03/03/24 13:48 03/03/24 03/03/24 03/03/24 06:59 14:59 22:59 Intake Total 650 / 650 Balance 650 / 650 Weight last 48 hrs Weight 77.734 kg Weight 77.746 kg Weight 79.016 kg Physical Exam 2 Narrative: This morning and on second visit in the afternoon he is awake and alert, cooperative. Family at bedside. Const: COMMON NORMALS: alert GENERAL APPEARANCE: cooperative O RIENTATION/CONSCIOUSNESS: Yes awake HENMT: COMMON NORMALS: normocephalic, EAC's normal, Normal external nose present and moist oral mucous membranes HEAD & SCALP: normocephalic NOSE: Normal external nose present EXTERNAL AUDITORY CANAL: EAC's normal Neck/C-Spine: COMMON NORMALS: no meningeal signs Chest: CHEST: Yes Symmetrical chest wall rise Resp: COMMON NORMALS: clear to auscultation bilaterally AUSCULTATION: clear to auscultation bilaterally Cardio: COMMON NORMALS: regular rate, regular rhythm and No murmurs present (Cardio) RATE: regular rate RHYTHM: regular rhythm GI: COMMON NORMALS: Normal to inspection, nondistended, normoactive bowel sounds present, Soft to palpation and non-tender PALPATION: Yes Soft to palpation Extremity: COMMON NORMALS: no pedal edema Neuro: COMMON NORMALS: moves all extremities SENSORIUM/ORIENTATION: Yes alert MENINGEAL SIGNS: Yes no meningeal signs Psych: COMMON NORMALS: mental status grossly normal Skin: COMMON NORMALS: no wounds RASHES: no rashes Urinary Catheter Management: Delgado: Cath Placed During This Visit: yes Reason for Continuing Indwelling Catheter: Accurate Measurement of Urinary Output in Critically Ill Patients Urinary Catheter Date of Insertion: 02/29/24 Urinary Catheter Time of Insertion: 17:11 Data 03/03/24 08:06 03/02/24 20:49 A&P Assessment and plan (1) Dyspnea on exertion: (2) Congestive heart failure: Qualifiers: Heart failure chronicity: acute Heart failure type: combined systolic and diastolic Qualified Code(s): I50.41 - Acute combined systolic (congestive) and diastolic (congestive) heart failure (3) Elevated troponin: (4) Acute on chronic renal insufficiency: Plan 73-year-old with past medical history of multiple myeloma on chemotherapy presented with symptoms of dyspnea on exertion with orthopnea worsening over last 4 weeks more so over the last 1 week. New cardiomyopathy, CHF exacerbation: New severe symptomatic cardiomyopathy with CHF, today with worsening renal function. This morning with improvement in encephalopathy as well as in respiratory status, breathing easier, intermittently coming off oxygen. However, in the afternoon noted with orthopnea, PND. Waking up short of breath. Has never had a sleep study, here family are not sure whether he may have concomitant sleep apnea. Discussed with him and his family certainly at risk of orthopnea, PND with cardiomyopathy, CHF. Reviewed vitals, intake and output, CBC, CMP. Discussed with tow motor driver. Renal function with noted some worsening today. Diuretics held for today pending reassessment of renal function. On reassessment after rest sitting up with oxygen on he is breathing comfortably. Maintaining saturation in high 90s. Initially considered CPAP support, but he is doing well at rest. However, discussed with him and his family may consider CPAP with sleep due to his symptoms. Requested, recommend per discussion with RT no CPAP machines are available currently in the hospital as all are in use by other patients. Will monitor oxygenation. Trial of CPAP once available for sleep. Will benefit from sleep study after discharge. Additional discussion with patient and family this morning with regards to consideration of returning home. He has had transfer pending to [facility] for further assessment. With improvement in mental status may be able to also undergo cardiac MRI. As per discussion with cardiology would recommend continuation with arrangements for transfer for further assessment including by hematology with consideration of possible chemotherapy induced severe cardiomyopathy. Pending bed opening. Arrangements underway for LifeVest. Reviewed cardiology note. Discussed with nursing, family caseworker. Acute decompensated systolic and diastolic CHF, with new decrease in ejection fraction down to 15-20%. Reviewed echocardiogram. Reviewed cardiology note. Discussed with cardiology. Underwent coronary angiogram, no significant blockages noted. Nonischemic cardiomyopathy is noted. With underlying CKD, currently ZANE on CKD creatinine up to 2.1. Status post coronary angiogram Lasix initially held, however, with worsening hypoxia, noted pulmonary opacities on requested chest x-ray on my interpretation with possible right lower lobe infiltrate as well, although afebrile, but having chills, no leukocytosis this morning on review of CBC. Will repeat CBC. Empirically started on Zosyn for possible suppression pneumonia concomitant with decompensated CHF. As per discussion with cardiology, family, Lasix. Monitor for risk of electrolyte deficiency, worsening renal function/ZANE with IV diuretics. Monitor for risk of hypotension. In case becoming hypotensive, possible low output failure, consider inotrope support in ICU. Consider adrenal insufficiency with history of steroid with chemotherapy, although is not on steroid consistently. Could not tolerate CPAP. Continue oxygen support, wean down as tolerating. Less likely septic shock, but empirically started on Zosyn. Reassess vitals, oxygenation, blood counts. Transfer arrangements also underway, has been accepted to [facility] for further assessment, although currently pending transfer once a bed opens up. No beds available at [facility]. Acute encephalopathy: With delirium. With significant improvement this morning, calm, awake, alert, cooperative, corroborated by history obtained from his family. Patient seems to head is stressful prior hospital stay after multiple rib fractures, flail chest during which time also had delirium with sundowning. Normally does not have sundowning at home. Normally is sharp without perceptible signs of dementia. Continue supportive care, treatment of underlying conditions. Reorient. Family have been very good about being with patient at all times. Acute metabolic encephalopathy suspected secondary to acute decline in ejection fraction, may be progressing to low output state, possible aspiration pneumonia. Additionally possible toxic effect after Ambien with decreased renal clearance with ZANE on CKD as well as low ejection fraction. Xanax added as needed, although as discussed risk of worsening encephalopathy/disinhibition. Haldol as needed for severe agitation, although with risk of increase in mortality. Dyspnea on exertion: With decompensated CHF with new nonischemic cardiomyopathy. Possible aspiration pneumonia, empirically on Zosyn. Complicated by acute encephalopathy. Reassess vitals, blood counts. Mental status. At baseline troponin elevated with negative delta. proBNP elevated. Reviewed echocardiogram. Reviewed troponins, TSH, vitamin B12, folate level. Monitor telemetry. Fluid restriction up to 1500 cc. With worsening renal function today creatinine up to 2.3. Pending reassessment, diuretics were held today. Hopefully may be able to resume tomorrow. Strict input output charting, daily weights. ZANE on CKD: Baseline creatinine seems to be around 1.4-1.6. Reviewed BUN, creatinine. ZANE on CKD, creatinine up to 2.1. Possibly secondary to decompensation of CHF. Medical reconciliation done for nephrotoxic drugs. He did get a CTA in ER. Will continue to monitor renal functions. No other electrolyte disturbance for now. For now we will hold off on acyclovir. Full code Cardiac diet Fluid restriction up to 1500 cc Famotidine for PUD prophylaxis Heparin 5000 every 12 hourly for DVT prophylaxis. Attestations 2 Medical Necessity Statement*: Continue admission for assessment management of decompensated CHF, new severe symptomatic nonischemic cardiomyopathy, acute encephalopathy, possible aspiration pneumonia. Diagnoses Dyspnea on exertion R06.09 Acute combined systolic and diastolic congestive heart failure I50.41 Heart failure chronicity: acute Heart failure type: combined systolic and diastolic Elevated troponin R79.89 Acute on chronic renal insufficiency N28.9; N18.9
--- NOTE | 2024-03-03 19:45 | PC.NURSE ---
Pt is asleep as of now Pt kept his telemetry and oxygen at 3 L per NC on still. FINANCIAL COMPLIANCE OFFICER at bedside. Family still not back yet.
[2024-03-03 19:50] LABS: Anion Gap 23.9 (5-19); Blood Urea Nitrogen 48 mg/dL (8-23); Calcium 9.3 mg/dL (8.5-10.5); Carbon Dioxide 19 mmol/L (22-29); Chloride 102 mmol/L (98-107); Glucose 132 mg/dL (65-115); Osmolality Calculated 306 mOsm/kg (285-295); Potassium 3.9 mmol/L (3.5-5.1); Sodium 141 mmol/L (136-145)
[2024-03-03] MEDS: ALPRAZolam 0.5 mg Tablet PO (20:16)
[2024-03-03] MEDS: atorvastatin 40 mg Tablet PO (20:17)
[2024-03-04] VITALS (9 sets, daily range): BP systolic 106–128; BP diastolic 63–87; PULSE 75–100; RESP 17–29; TEMP 36.3–37.1; O2SAT 93–99
[2024-03-04] MEDS: piperacillin-tazobactam 3.375 GM in sodium chloride 0.9% (plus) 50 ML IV ×2 (05:51→17:03)
[2024-03-04] MEDS: heparin 5,000 unit/mL INJ 1 mL 5000 UNIT SUBCUT ×2 (05:52→17:03)
[2024-03-04 07:30] LABS: Basophils % 0.3 %; Eosinophils % 0.5 %; Hematocrit 39.2 % (37-53); Lymphocytes # 0.7 10^3/uL (0.8-4.8); Lymphocytes % 11.9 %; Mean Corpuscular HGB Conc 32.1 g/dL (30-55); Mean Corpuscular Hemoglobin 34.6 pg (27-33); Mean Corpuscular Volume 107.7 fl (82-101); Mean Platelet Volume 13.3 fL (7.4-10.4); Monocytes # 0.7 10^3/uL (0.2-0.9); Monocytes % 12.1 %; Neutrophils # 4.44 10^3/uL (1.8-7.7); Neutrophils % 74.5 %; Nucleated Red Blood Cells % 0.3 %; Platelet Count 87 10^3/cmm (157-399); Red Blood Count 3.64 10^6/uL (3.85-5.65); Red Cell Distribution Width 15.3 % (12.1-15.1); White Blood Count 5.96 10^3/uL (3.29-11.43)
[2024-03-04 07:49] LABS: Anion Gap 20.7 (5-19); Blood Urea Nitrogen 47 mg/dL (8-23); Calcium 8.7 mg/dL (8.5-10.5); Carbon Dioxide 21 mmol/L (22-29); Chloride 103 mmol/L (98-107); Creatinine Clr Calc Pharmacy 34.4988; Glucose 106 mg/dL (65-115); Osmolality Calculated 305 mOsm/kg (285-295); Potassium 3.7 mmol/L (3.5-5.1); Sodium 141 mmol/L (136-145)
[2024-03-04] MEDS: famotidine 20 mg Tablet PO ×2 (08:10→17:02)
[2024-03-04] MEDS: metoprolol tartrate 25 mg Tablet PO ×2 (08:11→19:55)
--- NOTE | 2024-03-04 11:15 | P.PN_ITS ---
Subjective 2 Subjective: He is feeling little bit better this morning. He was able to get rest overnight from history obtained from his son. He is still requiring oxygen this morning. He gets dyspneic with exertion and orthopnea. Vitals/I&O/Wt Last Vital Signs Temp 98.5 F 03/04/24 07:37 Pulse 91 03/04/24 10:00 Resp 18 03/04/24 10:00 BP 127/77 03/04/24 07:37 Pulse Ox 96 03/04/24 10:00 O2 Del Method Nasal Cannula 03/04/24 10:00 O2 Flow Rate 3 03/04/24 10:00 FiO2 32 03/03/24 13:48 03/03/24 03/04/24 03/04/24 22:59 06:59 14:59 Intake Total 510 / 1160 170 / 170 Balance 510 / 1160 170 / 170 Weight last 48 hrs Weight 77.734 kg Weight 77.734 kg Physical Exam 2 Narrative: Accompanied by his family. Const: COMMON NORMALS: alert GENERAL APPEARANCE: cooperative O RIENTATION/CONSCIOUSNESS: Yes awake OTHER: He is alert and responsive. Pleasant, conversant. Appears to answer appropriately and provides ROS. Minimal confusion, takes of his nasal cannula when I lean into auscultate. HENMT: COMMON NORMALS: normocephalic, EAC's normal, Normal external nose present, moist oral mucous membranes and oropharynx normal HEAD & SCALP: n ormocephalic NOSE: Normal external nose present EXTERNAL AUDITORY CANAL: E AC's normal Neck/C-Spine: COMMON NORMALS: no meningeal signs and no JVD Chest: CHEST: Yes Symmetrical chest wall rise Resp: COMMON NORMALS: normal respiratory effort and clear to auscultation bilaterally AUSCULTATION: clear to auscultation bilaterally Cardio: COMMON NORMALS: no JVD, regular rate, regular rhythm, S1 normal heart sound present, S2 normal heart sound present and No murmurs present (Cardio) RATE: regular rate RHYTHM: regular rhythm HEART SOUNDS: S1 normal heart sound present and S2 normal heart sound present GI: COMMON NORMALS: Normal to inspection, nondistended, normoactive bowel sounds present, Soft to palpation and non-tender PALPATION: Yes Soft to palpation Extremity: COMMON NORMALS: no joint enlargement and no pedal edema Neuro: COMMON NORMALS: moves all extremities SENSORIUM/ORIENTATION: Yes alert MENINGEAL SIGNS: Yes no meningeal signs Psych: COMMON NORMALS: mental status grossly normal Skin: COMMON NORMALS: no rashes or lesions noted and no wounds GENERAL SKIN EXAM: no rashes or lesions noted RASHES: no rashes Urinary Catheter Management: Delgado: Cath Placed During This Visit: yes Reason for Continuing Indwelling Catheter: Accurate Measurement of Urinary Output in Critically Ill Patients Urinary Catheter Date of Insertion: 02/29/24 Urinary Catheter Time of Insertion: 17:11 Data 03/04/24 07:12 03/04/24 07:12 A&P Assessment and plan (1) Dyspnea on exertion: (2) Congestive heart failure: Qualifiers: Heart failure chronicity: acute Heart failure type: combined systolic and diastolic Qualified Code(s): I50.41 - Acute combined systolic (congestive) and diastolic (congestive) heart failure (3) Elevated troponin: (4) Acute on chronic renal insufficiency: Plan 73-year-old with past medical history of multiple myeloma on chemotherapy presented with symptoms of dyspnea on exertion with orthopnea worsening over last 4 weeks more so over the last 1 week. New cardiomyopathy, CHF exacerbation: Reviewed vitals, intake and output, CBC, BMP. He is still requiring 2 L of oxygen. Becomes dyspneic with exertion. Orthopneic. Creatinine today with improvement down to 2.1. BUN 47. Potassium 3.7. Discussed with cw operator, will give a dose of Lasix today starting with 20 mg IV once as per recommendation. Monitor intake and output, renal function, electrolytes with IV diuretic with risk of deficiency with IV diuretic. Reassess oxygenation. Discussed with nursing, manager of case management. Pending transfer to [facility]. Reviewed cardiology note. Aspirin has been discontinued due to minimal CAD and thrombocytopenia. New severe symptomatic cardiomyopathy with CHF, today with worsening renal function. This morning with improvement in encephalopathy as well as in respiratory status, breathing easier, intermittently coming off oxygen. However, in the afternoon noted with orthopnea, PND. Waking up short of breath. Has never had a sleep study, here family are not sure whether he may have concomitant sleep apnea. Discussed with him and his family certainly at risk of orthopnea, PND with cardiomyopathy, CHF. Confirmed fluid restriction 1500 mL per 24 hours. Discussed may consider CPAP with sleep due to his symptoms. Requested, recommend per discussion with RT no CPAP machines are available currently in the hospital as all are in use by other patients. Will monitor oxygenation. Trial of CPAP once available for sleep. Will benefit from sleep study after discharge. Additional discussion with patient and family this morning with regards to consideration of returning home. He has had transfer pending to [facility] for further assessment. With improvement in mental status may be able to also undergo cardiac MRI. As per discussion with cardiology would recommend continuation with arrangements for transfer for further assessment including by hematology with consideration of possible chemotherapy induced severe cardiomyopathy. Pending bed opening. Arrangements underway for [facility]. Acute decompensated systolic and diastolic CHF, with new decrease in ejection fraction down to 15-20%. In case becoming hypotensive, possible low output failure, consider inotrope support in ICU. Consider adrenal insufficiency with history of steroid with chemotherapy, although is not on steroid consistently. Could not tolerate CPAP. Continue oxygen support, wean down as tolerating. Less likely septic shock, but empirically started on Zosyn. Reassess vitals, oxygenation, blood counts. Transfer arrangements also underway, has been accepted to [facility] for further assessment, although currently pending transfer once a bed opens up. No beds available at [facility]. Possible aspiration pneumonia: With infiltrate in the right lower lobe, encephalopathy, has been empirically on Zosyn. However, remains afebrile, no leukocytosis. He is having some minimal cough which he states has been improving. Discussed with him and his family in case continues to do well without signs of ongoing pneumonia we may discontinue antibiotic. Acute encephalopathy: Per history obtained from family was able to get sleep overnight. Encephalopathy with delirium. With worsening overnight last night again per review of nursing notes. Sundowning. Required a dose of Haldol. With improvement again this morning. With significant improvement this morning, calm, awake, alert, cooperative, corroborated by history obtained from his family. Patient seems to have had a stressful prior hospital stay after multiple rib fractures, flail chest during which time also had delirium with sundowning. Normally does not have sundowning at home. Per family normally is sharp without perceptible signs of dementia. Continue supportive care, treatment of underlying conditions. Reorient. Family have been very good about being with patient at all times. Acute metabolic encephalopathy suspected secondary to acute decline in ejection fraction, may be progressing to low output state, possible aspiration pneumonia. Additionally possible toxic effect after Ambien with decreased renal clearance with ZANE on CKD as well as low ejection fraction. Xanax added as needed, although as discussed risk of worsening encephalopathy/disinhibition. Haldol as needed for severe agitation, although with risk of increase in mortality. Dyspnea on exertion: With decompensated CHF with new nonischemic cardiomyopathy. Possible aspiration pneumonia, empirically on Zosyn. Complicated by acute encephalopathy. Reassess vitals, blood counts. Mental status. At baseline troponin elevated with negative delta. proBNP elevated. Reviewed echocardiogram. Reviewed troponins, TSH, vitamin B12, folate level. Monitor telemetry. Fluid restriction up to 1500 cc. Strict input output charting, daily weights. ZANE on CKD: Baseline creatinine seems to be around 1.4-1.6. Reviewed BUN, creatinine. ZANE on CKD, creatinine 2.1. Possibly secondary to decompensation of CHF. Medical reconciliation done for nephrotoxic drugs. He did get a CTA in ER. Will continue to monitor renal functions. No other electrolyte disturbance for now. For now we will hold off on acyclovir. Full code Cardiac diet Fluid restriction up to 1500 cc Famotidine for PUD prophylaxis Heparin 5000 every 12 hourly for DVT prophylaxis. Attestations 2 Medical Necessity Statement*: Continue admission for assessment management of decompensated CHF, new severe symptomatic nonischemic cardiomyopathy, acute encephalopathy, possible aspiration pneumonia. and High MDM includes amount and/or complexity of data reviewed/ordered [ previous or external records, resulted lab(s)/test(s), independent historian and other healthcare professional discussion] and described risk of complication, morbidity or mortality of management as documented Diagnoses Dyspnea on exertion R06.09 Acute combined systolic and diastolic congestive heart failure I50.41 Heart failure chronicity: acute Heart failure type: combined systolic and diastolic Elevated troponin R79.89 Acute on chronic renal insufficiency N28.9; N18.9
[2024-03-04] MEDS: FUROsemide 10 mg/mL SDV 2mL 20 MG IVP (11:31)
--- NOTE | 2024-03-04 12:03 | PC.SOCIAL ---
IMM Updated Updated pt on IMM. No questions voiced. Provided pt a copy. Initialed, dated, & timed a copy & placed in chart.
--- NOTE | 2024-03-04 13:06 | P.PN_ITS ---
<Statement entered by Gurvinder Murphy M.D - 03/05/24 10:42> Patient was evaluated and cared for in conjunction with an advanced practice practitioner.? I personally examined the patient and reviewed the chart and all pertinent data including imaging, telemetry, and laboratory results.? I discussed the patient in detail with the advanced practice practitioner.? Please see? their note for complete progress note, testing result and agreed upon plan of care for the patient. Creatinine improved today. Feeling better. Still has some shortness of breath. GENERAL: Patient is alert, confused HEART: Regular S1 and S2 LUNGS: Diminished air entry. CENTRAL NERVOUS SYSTEM: Grossly nonfocal. EXTREMITIES: Lower extremities with out edema bilaterally. (1) LV dysfunction (2) Congestive heart failure (3) Elevated troponin (4) Dyspnea on exertion Plan Patient's creatinine has improved today. Will start gentle diuresis. Monitor renal function. Awaiting transfer to [facility] [address] [facility]. LifeVest with patient now. Continue beta quang. We will hold off on entresto for now till renal function improves. Thank you for involving us with care of this patient. We will continue to follow. Please call with questions. Subjective 2 Subjective: Patient actually doing much better today. Has not had any confusion. He states he feels good today. Lungs are clear no evidence of fluid overload. Creatinine has improved to 2.1. O2 sat 93% on 2L. VSS. Medications: Reviewed: Yes Vitals/I&O/Wt Last Vital Signs Temp 97.3 F L 03/04/24 12:00 Pulse 85 03/04/24 12:00 Resp 28 H 03/04/24 12:00 BP 106/79 03/04/24 12:00 Pulse Ox 93 03/04/24 12:00 O2 Del Method Nasal Cannula 03/04/24 12:00 O2 Flow Rate 2 03/04/24 12:00 FiO2 32 03/03/24 13:48 03/03/24 03/04/24 03/04/24 22:59 06:59 14:59 Intake Total 510 / 1160 170 / 170 Balance 510 / 1160 170 / 170 Weight last 48 hrs Weight 173 lb 5 oz Weight 171 lb 6 oz Weight 171 lb 6 oz Physical Exam 2 Narrative: General: No apparent distress, healthy appearing, well nourished Muskuloskeletal: Full ROM Lymphatic: no lymphedema noted Respiratory: Normal respiratory effort, clear to auscultation bilaterally throughout all lung correa, no use of accessory muscles Cardio: No JVD, regular rate, regular rhythm, S1 S2 normal, no murmurs, peripheral pulses 2+ throughout GI: Normal to inspection, nondistended Extremities: Full ROM, normal, normal capillary refill, no cyanosis or edema Neuro: Alert and oriented x4, no focal motor deficits Psych: Affect normal, denies suicidal ideation, mental status grossly normal Skin: No rashes or lesions noted, no wounds Urinary Catheter Management: Delgado: Cath Placed During This Visit: yes Reason for Continuing Indwelling Catheter: Accurate Measurement of Urinary Output in Critically Ill Patients Urinary Catheter Date of Insertion: 02/29/24 Urinary Catheter Time of Insertion: 17:11 Data 03/04/24 07:12 03/04/24 07:12 A&P Assessment and plan (1) LV dysfunction: (2) Congestive heart failure: Qualifiers: Heart failure chronicity: acute Heart failure type: combined systolic and diastolic Qualified Code(s): I50.41 - Acute combined systolic (congestive) and diastolic (congestive) heart failure (3) Elevated troponin: (4) Dyspnea on exertion: Plan Patient is doing much better today. Denies any shortness of breath. Lung sounds have improved. We are holding off of Entresto at this time due to increased creatinine. Patient is on metoprolol 25 twice daily. LVEDP was elevated, will give Lasix 20 today and continue to monitor renal function. Patient is awaiting transfer to [place]. He has been given the LifeVest. Will continue current care. Attestations 2 Medical Necessity Statement*: Continue admission for assessment management of decompensated CHF, new severe symptomatic nonischemic cardiomyopathy, acute encephalopathy, possible aspiration pneumonia. Coding Level of Care Code Acute Code for [facility] Fwd Diagnoses LV dysfunction I51.9 Acute combined systolic and diastolic congestive heart failure I50.41 Heart failure chronicity: acute Heart failure type: combined systolic and diastolic Elevated troponin R79.89 Dyspnea on exertion R06.09
--- NOTE | 2024-03-04 18:14 | PC.NURSE ---
Addendum entered by Kirsten Avila RN 03/04/24 18:16: All records have been copied and sent with EMS. Original Note: Report is called to [facility] to room 9222 bed 2. Report called to Niraj Wells RN. [phone]. Family is notified of this information.
[2024-03-04 18:18] LABS: Anion Gap 22.6 (5-19); Blood Urea Nitrogen 50 mg/dL (8-23); Calcium 9.1 mg/dL (8.5-10.5); Carbon Dioxide 21 mmol/L (22-29); Chloride 100 mmol/L (98-107); Creatinine Clr Calc Pharmacy 29.1079; Glucose 116 mg/dL (65-115); Osmolality Calculated 304 mOsm/kg (285-295); Potassium 3.6 mmol/L (3.5-5.1); Sodium 140 mmol/L (136-145)
[2024-03-04] MEDS: ALPRAZolam 0.5 mg Tablet PO (19:55)
[2024-03-04] MEDS: atorvastatin 40 mg Tablet PO (19:55)
--- NOTE | 2024-03-06 20:35 | P.TS_ITS ---
Transfer Summary Providers Date of Admission: 03/01/24 13:09 Date of Discharge/Transfer: 03/06/24 Attending Provider at Admission: Ozzy Headley MD Attending Provider at Transfer: Karsten Kaplan Primary Care Provider: Ede Prado DO Transfer Plans: Anticipated date of transfer: 03/06/24 . Diagnoses at Discharge Discharge Diagnosis (1) LV dysfunction: Status: Acute (2) Congestive heart failure: Status: Acute Qualifiers: Heart failure chronicity: acute Heart failure type: combined systolic and diastolic Qualified Code(s): I50.41 - Acute combined systolic (congestive) and diastolic (congestive) heart failure (3) Elevated troponin: Status: Acute (4) Dyspnea on exertion: Status: Acute Reason for Visit Reason for Visit Sob, (urgent care reff) Hospital Course Hospital Course Very pleasant 73-year-old gentleman with multiple myeloma, on therapy with Sarclisa and Kyprolis, CKD, with past history of difficult hospitalization with significant chest trauma with flail chest, with associated episodes of delirium during capitalization, was admitted after presenting with shortness of breath, more so on exertion, but with also reported PND, orthopnea, chest pain. Symptoms worsening over the preceding [address] angiogram of presentation was done which did not show PE. On presentation with finding of suspected acute congestive heart failure, echocardiogram showing new cardiomyopathy ejection fraction down to 15%. Was placed on fluid restriction, started on IV diuretic therapy, assessed by cardiology, underwent coronary angiogram for further assessment for possible ischemic cardiomyopathy, which did not reveal any significant coronary disease. With thrombocytopenia, without significant coronary disease, aspirin was discontinued. Etiology of nonischemic cardiomyopathy unclear whether possible viral etiology versus secondary to hematologic treatment agents or another cause. Continued on oxygen support, symptomatic management of CHF with diuresis with symptoms showing slow improvement. Hospitalization was complicated by acute metabolic encephalopathy suspected secondary to combination of acute illness, has previously had diffic ulties with delirium during very significant chest trauma and prolonged hospitalization, and possibly triggered by Ambien, with currently additional factors with decompensated CHF, hypoxia, question of possible aspiration initially with possible right lower lobe infiltrate, transiently treated with antibiotics but remained afebrile, without leukocytosis, with only minimal improving cough, antibiotics not continued. With possible low output failure a consideration, with concomitant ZANE on CKD, although was maintaining blood pressure as well. Encephalopathy/delirium showed improvement, although still with some sundowning symptoms. With so far unexplained severe nonischemic cardiomyopathy with possibility of relation to treatments of myeloma, was accepted for further assessment and management at [facility]. Physical Exam Urinary Catheter Management: Delgado: Cath Placed During This Visit: yes Reason for Continuing Indwelling Catheter: Accurate Measurement of Urinary Output in Critically Ill Patients Urinary Catheter Date of Insertion: 02/29/24 Urinary Catheter Time of Insertion: 17:11 TS Data Studies Completed and Pending Pending at discharge Category Date Time Status [employer] request for service Routine Exams 03/02/24 07:10 Taken Completed Studies During Hospitalization Category Date Time Status CT angio chest PE protcl [id number] Stat Cat Scan 02/29/24 12:[address] head wo con* [id number] Stat Cat Scan 03/01/24 12:59 Completed CXRP [XR chest 1V portable [id number]] Stat Exams 03/02/24 12:24 Completed XR chest 1V portable [id number] NOW Exams 03/03/24 10:21 Completed CV. echo complete* [id number] Routine Ultrasound 03/01/24 16:20 Completed Laboratory Last Values WBC 5.96 10^3/uL (3.29-11.43) 03/04/24 07:12 RBC 3.64 10^6/uL (3.85-5.65) L 03/04/24 07:12 Hgb 12.60 g/dL (11.27-16.99) 03/04/24 07:12 Hct 39.2 % (37-53) 03/04/24 07:12 MCV 107.7 fl (82-101) H 03/04/24 07:12 MCH 34.6 pg (27-33) H 03/04/24 07:12 MCHC 32.1 g/dL (30-55) 03/04/24 07:12 RDW 15.3 % (12.1-15.1) H 03/04/24 07:12 Plt Count 87 10^3/cmm (157-399) L 03/04/24 07:12 MPV 13.3 fL (7.4-10.4) H 03/04/24 07:12 Neut % (Auto) 74.5 % 03/04/24 07:12 Lymph % (Auto) 11.9 % 03/04/24 07:12 Creek % (Auto) 12.1 % 03/04/24 07:12 Eos % (Auto) 0.5 % 03/04/24 07:12 Baso % (Auto) 0.3 % 03/04/24 07:12 Neut # (Auto) 4.44 10^3/uL (1.8-7.7) 03/04/24 07:12 Lymph # (Auto) 0.7 10^3/uL (0.8-4.8) L 03/04/24 07:12 Creek # (Auto) 0.7 10^3/uL (0.2-0.9) 03/04/24 07:12 Eos # (Auto) 0.0 10^3/uL (0.0-0.8) 03/04/24 07:12 Baso # (Auto) 0.0 10^3/uL (0.0-0.1) 03/04/24 07:12 Nucleated RBC % (auto) 0.3 % 03/04/24 07:12 Nucleated RBCs # 0.0 /100WBC 03/04/24 07:12 D-Dimer 4.17 ug/mLFEU (0-0.59) H 02/29/24 12:17 Specimen Type Arterial 03/01/24 14:16 Sample Site Radial, right 03/01/24 14:16 ABG pH 7.49 (7.35-7.45) H 03/01/24 14:16 ABG pCO2 31.4 mmHg (35-45) L 03/01/24 14:16 ABG pO2 76.8 mmHg (80.0-100.0) L 03/01/24 14:16 ABG HCO3 24.0 mmol/L (22-26) 03/01/24 14:16 ABG O2 Saturation 96.3 03/01/24 14:16 ABG Base Excess 1.3 mmol/L (-2.0-2.0) 03/01/24 14:16 Stephan Test Pos 03/01/24 14:16 A-a O2 Gradient 4.5 mmHg (5-10) L 03/01/24 14:16 Hematocrit 39.3 % (42-52) L 03/01/24 14:16 Hgb O2 Saturation 94.0 % (95-100) L 03/01/24 14:16 Carboxyhemoglobin 1.4 %THgb (0.4-20.1) 03/01/24 14:16 Methemoglobin 0.9 % (0.4-1.5) 03/01/24 14:16 Total Hemoglobin 12.8 g/dL (14-18) L 03/01/24 14:16 Sodium 143.0 mmol/L (131-143) 03/01/24 14:16 Potassium 3.6 mmol/L (3.5-5.0) 03/01/24 14:16 Glucose 132.0 mg/dL (70-115) H 03/01/24 14:16 Ionized Calcium 1.2 mmol/L (1.1-1.4) 03/01/24 14:16 O2 Delivery Device Room air 03/01/24 14:16 Millinery Designer ID [id number] 03/01/24 14:16 Sodium 140 mmol/L (136-145) 03/04/24 17:43 Potassium 3.6 mmol/L (3.5-5.1) 03/04/24 17:43 Chloride 100 mmol/L (98-107) 03/04/24 17:43 Carbon Dioxide 21 mmol/L (22-29) L 03/04/24 17:43 Anion Gap 22.6 (5-19) H 03/04/24 17:43 BUN 50 mg/dL (8-23) H 03/04/24 17:43 Creatinine 2.5 mg/dL (0.7-1.2) H 03/04/24 17:43 GFR Calculation Not Reportable 03/04/24 17:43 Glucose 116 mg/dL (65-115) H 03/04/24 17:43 Estimat Average Glucose 108 03/01/24 04:41 Hemoglobin A1c 5.4 % (4.0-6.0) 03/01/24 04:41 Calculated Osmolality 304 mOsm/kg (285-295) H 03/04/24 17:43 Calcium 9.1 mg/dL (8.5-10.5) 03/04/24 17:43 Phosphorus 4.3 mg/dL (2.5-4.5) 03/01/24 04:41 Magnesium 2.0 mg/dL (1.7-2.3) 03/01/24 04:41 Iron 53 ug/dL (59-158) L 02/29/24 14:14 TIBC 260 mcg/dl 02/29/24 14:14 % Saturation 20.3 % (20-50) 02/29/24 14:14 Unsat Iron Binding 207 ug/dL (112-347) 02/29/24 14:14 Total Bilirubin 1.5 mg/dL (0.15-1.2) H 03/02/24 20:49 AST 30 U/L (0-40) 03/02/24 20:49 ALT 30 U/L (0-41) 03/02/24 20:49 Alkaline Phosphatase 70 U/L (40-130) 03/02/24 20:49 Troponin T Baseline 136 ng/L (0-15) H* 02/29/24 12:17 Troponin T 120 Minute 120.0 ng/L (0-15) H 02/29/24 14:14 Delta Troponin T -16.0 ABS# (0-10) L 02/29/24 14:14 Troponin T Hi Sens 6Hr 144.6 ng/L (0-15) H 02/29/24 17:18 Troponin T Hi Sens 6Hr Delta 8.6 ng/L (0-12) 02/29/24 17:18 NT-Pro-B Natriuret Pep 28840 pg/mL (0-125) H 02/29/24 14:14 Total Protein 5.6 g/dL (6.6-8.7) L 03/02/24 20:49 Albumin 3.7 g/dL (3.5-5.2) 03/02/24 20:49 Globulin 1.9 g/dL (1.3-4.6) 03/02/24 20:49 Triglycerides 169 mg/dL (0-150) H 03/01/24 04:41 Cholesterol 225 mg/dL (0-200) H 03/01/24 04:41 LDL Cholesterol, Calc 146 mg/dL (50-129) H 03/01/24 04:41 HDL Cholesterol 45 mg/dL (60-100) L 03/01/24 04:41 LDL/HDL Ratio 3.24 RATIO (0.00-3.22) H 03/01/24 04:41 Cholesterol/HDL Ratio 5.00 mg/dL (1.0-5.00) 03/01/24 04:41 Vitamin B12 272 pg/mL (232-1245) 02/29/24 14:14 Folate 13.3 ng/mL (4.5-32.2) 03/01/24 04:41 Procalcitonin 0.16 ng/mL (0-0.5) 03/01/24 04:41 TSH 1.85 uIU/mL (0.27-4.20) 02/29/24 14:14 Urine Color Yellow (Yellow) 02/29/24 17:00 Urine Appearance Clear (CLEAR) 02/29/24 17:00 Urine pH 5.0 (5-7) 02/29/24 17:00 Ur Specific Zamora 1.023 (1.005-1.030) 02/29/24 17:00 Urine Protein Negative (Negative) 02/29/24 17:00 Urine Glucose (UA) Negative (Normal) 02/29/24 17:00 Urine Ketones Negative (Negative) 02/29/24 17:00 Urine Blood Negative (Negative) 02/29/24 17:00 Urine Nitrate Negative (Negative) 02/29/24 17:00 Urine Bilirubin Negative (Negative) 02/29/24 17:00 Urine Urobilinogen 1.0 mg/dL (Negative) 02/29/24 17:00 Ur Leukocyte Esterase Negative (Negative) 02/29/24 17:00 Urine RBC 0-2 /hpf (0-2) 02/29/24 17:00 Urine WBC 0-5 /hpf (0-5) 02/29/24 17:00 Ur Squamous Epith Cells 0-5 /hpf (0-5) 02/29/24 17:00 Amorphous Sediment Not Reportable 02/29/24 17:00 Urine Bacteria None seen /hpf (NONE) 02/29/24 17:00 Hyaline Casts 0.40 /lpf 02/29/24 17:00 Urine Opiates Screen Negative ng/mL (Negative) 02/29/24 17:00 Ur Barbiturates Screen Negative ng/mL (Negative) 02/29/24 17:00 Ur Phencyclidine Scrn Negative ng/mL (Negative) 02/29/24 17:00 Ur Amphetamines Screen Negative ng/mL (Negative) 02/29/24 17:00 U Benzodiazepines Scrn Negative ng/mL (Negative) 02/29/24 17:00 Urine Cocaine Screen Negative ng/mL (Negative) 02/29/24 17:00 U Marijuana (THC) Screen Negative ng/mL (Negative) 02/29/24 17:00 Radiology Impressions Chest CTA 02/29/24 12:57 IMPRESSION: 1. Moderate bilateral pleural effusions with adjacent compressive atelectasis or pneumonia. In combination with cardiomegaly, findings are consistent with congestive heart failure. 2. Nonspecific intermediate density lesion in the left hepatic lobe measures 2.5 cm in the AP dimension similar to the prior CT scan. This cannot be further characterized on this examination. Head CT 03/01/24 12:59 IMPRESSION: 1. No acute intracranial abnormality. Chest X-Ray 03/03/24 10:21 IMPRESSION: Interval improvement in the lung abnormality as above. Recent Clincial Data Last Vital Signs Temp 97.5 F L 03/04/24 19:19 Pulse 95 03/04/24 20:42 Resp 17 03/04/24 20:42 BP 128/87 03/04/24 20:42 Pulse Ox 99 03/04/24 20:42 O2 Del Method Nasal Cannula 03/04/24 19:19 O2 Flow Rate 2 03/04/24 12:00 FiO2 32 03/03/24 13:48 Intake & Output/Weight 03/04/24 03/05/24 03/06/24 03/07/24 06:59 06:59 06:59 06:59 Intake Total 1160 / 1160 410 / 410 Output Total 350 / 350 Balance 1160 / 1160 60 / 60 Weight 77.734 kg 78.613 kg Vitals Last Vital Signs Temp 97.5 F L 03/04/24 19:19 Pulse 95 03/04/24 20:42 Resp 17 03/04/24 20:42 BP 128/87 03/04/24 20:42 Pulse Ox 99 03/04/24 20:42 O2 Del Method Nasal Cannula 03/04/24 19:19 O2 Flow Rate 2 03/04/24 12:00 FiO2 32 03/03/24 13:48 TS Medications Medications Discontinued Medications Acetaminophen (Acetaminophen 325 Mg Tablet) 650 mg PO Q6H PRN PRN Reason: Mild/Mod Pain Or Temp >/= 101 Acyclovir (Acyclovir 400 Mg Tablet) 400 mg PO BID AGNIESZKA Albuterol Sulfate (Albuterol 2.5 Mg/3 Ml Neb) 2.5 mg INHALATION Q6H PRN PRN Reason: SHORTNESS OF BREATH Albuterol/Ipratropium (Ipratropium-Albuterol 3 Ml Neb) 3 ml INHALATION Q6H PRN PRN Reason: SHORTNESS OF BREATH Alprazolam (Alprazolam 0.5 Mg Tablet) 0.5 mg PO TID PRN PRN Reason: ANXIETY Last Admin: 03/04/24 19:55 Dose: 0.5 mg Aspirin (Aspirin 81 Mg Ec Tablet) 81 mg PO DAILY [facility] Last Admin: 03/03/24 09:53 Dose: 81 mg Atorvastatin Calcium (Atorvastatin 40 Mg Tablet) 40 mg PO BEDTIME [facility] Last Admin: 03/04/24 19:55 Dose: 40 mg Bisacodyl (Bisacodyl 5 Mg Tablet) 10 mg PO DAILY PRN; Protocol PRN Reason: Constipation (see protocol) Famotidine (Famotidine 20 Mg Tablet) 20 mg PO BID [facility] Last Admin: 03/04/24 17:02 Dose: 20 mg Fentanyl (Fentanyl 50 Mcg/Ml Inj 2ml) Confirm Administered Dose 100 mcg .ROUTE .STK-MED ONE Stop: 03/02/24 07:26 Furosemide (Furosemide 10 Mg/Ml Sdv 2ml) 20 mg IVP ONCE ONE Stop: 02/29/24 15:45 Last Admin: 02/29/24 16:28 Dose: 20 mg Furosemide (Furosemide 10 Mg/Ml Sdv 4ml) 40 mg IVP Q24H [facility] Last Admin: 02/29/24 17:41 Dose: 40 mg Furosemide (Furosemide 10 Mg/Ml Sdv 10ml) 60 mg IVP ONCE ONE Stop: 03/02/24 14:15 Last Admin: 03/02/24 15:09 Dose: 60 mg Furosemide (Furosemide 10 Mg/Ml Sdv 2ml) 20 mg IVP ONCE ONE Stop: 03/04/24 11:14 Last Admin: 03/04/24 11:31 Dose: 20 mg Haloperidol Lactate (Haloperidol Inj 5 Mg/Ml Inj 1 Ml) 1 mg IM NOW ONE Stop: 03/01/24 13:06 Last Admin: 03/01/24 13:54 Dose: 1 mg Haloperidol Lactate (Haloperidol Inj 5 Mg/Ml Inj 1 Ml) 1 mg IM Q4H PRN PRN Reason: AGITATION Last Admin: 03/03/24 22:28 Dose: 1 mg Haloperidol Lactate (Haloperidol Inj 5 Mg/Ml Inj 1 Ml) Confirm Administered Dose 5 mg .ROUTE .STK-MED ONE Stop: 03/01/24 13:08 Heparin Sodium (Porcine) (Heparin 5,000 Unit/Ml Inj 1 Ml) 5,000 unit SUBCUT Q12H [facility] Last Admin: 03/04/24 17:03 Dose: 5,000 unit Heparin Sodium (Porcine) (Heparin 5,000 Unit/Ml Inj 1 Ml) Confirm Administered Dose 10,000 unit .ROUTE .STK-MED ONE Stop: 03/02/24 07:26 Sodium Chloride (Sodium Chloride 0.9%) 1,000 mls @ 50 mls/hr IV .Q20H AGNIESZKA Stop: 03/02/24 04:29 Last Infusion: 03/02/24 06:20 Dose: Infused Lidocaine HCl (Xylocaine) Confirm Administered Dose 20 mls @ as directed .ROUTE .ST-MED ONE Stop: 03/02/24 07:26 Sodium Chloride (Sodium Chloride 0.9%) Confirm Administered Dose 1,000 mls @ as directed .ROUTE .[facility]-MED ONE Stop: 03/02/24 07:26 Piperacillin Sod/Tazobactam (Sod 3.375 gm/ Sodium Chloride) 50 mls @ 12.5 mls/hr IV Q12H [facility]; Protocol Last Admin: 03/04/24 17:03 Dose: 12.5 mls/hr Sterile Water (Water) Confirm Administered Dose 10 mls @ as directed .ROUTE .STK-MED ONE Stop: 03/03/24 00:55 Last Admin: 03/03/24 07:18 Dose: Not Given Iohexol (Iohexol 350 Mg/Ml 500 Ml Btl (Per Ml)) 0 ml IV ONCE ONE Stop: 02/29/24 13:30 Last Admin: 02/29/24 13:29 Dose: 100 ml Lactulose (Lactulose Oral Liq 20 Gm/30 Ml Udc) 10 gm PO DAILY PRN; Protocol PRN Reason: Constipation (see protocol) Magnesium Hydroxide (Magnesium Hydroxide 30 Ml Udc) 30 ml PO DAILY PRN; Protocol PRN Reason: Constipation (see protocol) Metoprolol Tartrate (Metoprolol Tartrate 25 Mg Tablet) 25 mg PO BID@0900,2100 [facility] Last Admin: 03/04/24 19:55 Dose: 25 mg Midazolam HCl (Midazolam 1 Mg/Ml Inj 2 Ml) Confirm Administered Dose 2 mg .ROUTE .STK-MED ONE Stop: 03/02/24 07:25 Morphine Sulfate (Morphine 4 Mg/Ml Sdv 1 Ml) 2 mg IVP Q4H PRN PRN Reason: SEVERE PAIN Nitroglycerin (Nitroglycerin 5 Mg/Ml Sdv 10 Ml) Confirm Administered Dose 50 mg .ROUTE .STK-MED ONE Stop: 03/02/24 07:25 Olanzapine (Olanzapine 10 Mg Vial) 10 mg IM ONCE ONE Stop: 03/03/24 00:35 Last Admin: 03/03/24 07:17 Dose: Not Given Olanzapine (Olanzapine 10 Mg Vial) Confirm Administered Dose 10 mg .ROUTE .STK- MED ONE Stop: 03/03/24 00:55 Ondansetron HCl (Ondansetron 2 Mg/Ml Sdv 2 Ml) 4 mg IVP Q8H PRN PRN Reason: vomiting, or N/V if npo Zolpidem Tartrate (Zolpidem 5 Mg Tablet) 5 mg PO BEDTIME PRN PRN Reason: insomnia from medication Last Admin: 02/29/24 22:09 Dose: 5 mg Allergies No Known Allergies Allergy (Verified 02/29/24 10:02) Home Medications acetaminophen 325 mg tablet (Tylenol) 325 - 650 mg PO QID PRN Pain 06/02/20 [History Confirmed 02/29/24] zolpidem 5 mg tablet 5 mg PO .qhs PRN insomnia from medication #30 tabs 12/09/23 [Rx Confirmed 02/29/24] acyclovir 400 mg tablet 400 mg PO BID 02/29/24 [History Confirmed 02/29/24] carfilzomib 10 mg intravenous solution 10 mg IV DIRECTED 02/29/24 [History Confirmed 02/29/24] dexamethasone 4 mg tablet 20 mg PO DIRECTED 02/29/24 [History Confirmed 02/29/24] isatuximab-irfc 20 mg/mL intravenous solution 20 mg IV DIRECTED 02/29/24 [History Confirmed 02/29/24] Discharge Plan Discharge Patient Disposition: Xfer Short-Term Hosp Condition: Stable Prescriptions: No Action zolpidem 5 mg tablet 5 mg PO .qhs PRN (Reason: insomnia from medication) Qty: 30 3RF acetaminophen [Tylenol] 325 mg Tablet 325 - 650 mg PO QID PRN (Reason: Pain) acyclovir 400 mg tablet 400 mg PO BID dexamethasone 4 mg tablet 20 mg PO DIRECTED carfilzomib 10 mg Recon Soln 10 mg IV DIRECTED isatuximab-irfc 20 mg/mL Solution 20 mg IV DIRECTED Referrals: Ede Prado DO [Primary Care Provider] - Patient Instructions: Heart Failure (DC), Dilated Cardiomyopathy (DC), Opioid Safety Transfer Attestations Time Spent in Transfer Care: greater than 30 min Quality Metrics Clinical Quality Measures [ No reported AMI, CVA or VTE this stay] Coding Level of Care Code 10391 Total time (in minutes) for Discharge: 55 Diagnoses LV dysfunction I51.9 Acute combined systolic and diastolic congestive heart failure I50.41 Heart failure chronicity: acute Heart failure type: combined systolic and diastolic Elevated troponin R79.89 Dyspnea on exertion R06.09
== END 2024-03-04 20:30 | disposition skilled nursing facility (03) | DRG 287 ==
LOC: ER 15:43 → ICU 22:31 → CSU 03-02 11:27 → ICU 03-02 12:16
PROVIDERS: Internal Medicine; Admitting Provider Student in an Organized Health Care Education/Training Program; Emergency Provider Emergency Medicine; PCP Family Medicine; Visit Provider Internal Medicine
PROC: B211YZZ Fluoroscopy of Multiple Coronary Arteries using Other Contrast (ICD-10-PCS; principal; 2024-03-02 07:30)
DX: I50.41 Acute combined systolic (congestive) and diastolic (congestive) heart failure (principal); C90.00 Multiple myeloma not having achieved remission; I42.8 Other cardiomyopathies; N17.9 Acute kidney failure, unspecified; G93.40 Encephalopathy, unspecified; N18.9 Chronic kidney disease, unspecified; R79.89 Other specified abnormal findings of blood chemistry; R09.02 Hypoxemia; N14.11 Contrast-induced nephropathy; T50.8X5A Adverse effect of diagnostic agents, initial encounter; Z79.60 Long term (current) use of unspecified immunomodulators and immunosuppressants; Z95.828 Presence of other vascular implants and grafts; Z82.3 Family history of stroke
CPT/HCPCS: 36415; 36600; 51702; 70450; 71045; 71046; 71275; 80048; 80051; 80053; 80061; 80306; 81001; 82330; 82607; 82746; 82805; 83036; 83540; 83550; 83735; 83880; 84100; 84145; 84443; 84484; 85025; 85378; 93005; 93306; 93458; 94660; 94664; 96372; 96374; 96376; 99152; 99285; C1760; C1769; C1887; C1894; G0269; G0378; J1630; J1644; J1940; J2250; J2543; J3010; J3490; J7030; Q9967

== ENCOUNTER → 2024-03-12 15:00 | Outpatient (BNVA) | payer MEDICARE, OTHER, SELFPAY | PROVIDERS: PCP Family Medicine; Visit Provider Family Medicine | DX: N28.9 Disorder of kidney and ureter, unspecified (principal) | CPT/HCPCS: 80048 ==